=== PATIENT | female | born 1995 | race Caucasian/White ===

== ENCOUNTER 2018-06-10 08:38 | Inpatient (IN) | payer OTHER, SELFPAY ==
[2018-06-10 08:39] VITALS: BP 157/104; PULSE 114; RESP 24; TEMP 37; O2SAT 100; BMI 27.4
--- NOTE | 2018-06-10 08:58 | CT_ITS ---
STUDY: CT ABDOMEN AND PELVIS WITHOUT CONTRAST REASON FOR EXAM: Female, 23 years old. Right flank pain. History of kidney stones. RADIATION DOSAGE (If Supplied By Facility): CTDIvol = ( 7.88 ) mGy, DLP = ( 387.92 ) mGycm TECHNIQUE: Transaxial images were obtained from the dome of the diaphragm to the symphysis pubis without oral contrast, and without intravenous contrast. Sagittal and coronal images were reconstructed. Individualized dose optimization techniques were used for this CT. COMPARISON: Comparison is made with prior study dated August 09, 2015. FINDINGS: The visualized lung bases are unremarkable. The visualized portions of the heart are within normal limits. Normal liver. There are surgical clips in the gallbladder fossa consistent with a prior cholecystectomy. Normal spleen. Normal pancreas. Normal bilateral adrenal glands. Mild degree of the left hydronephrosis and left hydroureter with periureteric stranding due to a 3.1 mm calculus at the right ureterovesical junction. There is a 3.1 mm nonobstructive calculus in the mid inferior pole of the left kidney. Normal visualized stomach. Normal small intestine. Normal colon. The appendix is visualized and appears normal. Normal abdominal aorta. Normal inferior vena cava. There is borderline retroperitoneal lymphadenopathy with enlarged nodes no greater than 10mm in the short axis diameter. Normal urinary bladder. Normal abdominal wall. Normal osseous structures. CT/Abdomen/Pelvis without Cont IMPRESSION: 3.1 mm calculus at the right ureterovesical junction causing a mild degree of right hydronephrosis and right hydroureter. Nonobstructive left intrarenal calculus. Electronically Signed: Horacio Vogel MD at 10:15 EDT Tel [phone], Service support ,
[2018-06-10 09:24] LABS: Absolute Lymphocyte Count 2.27 X10^3/ul (0.83-4.51); Absolute Neutrophil Count 7.1 X10^3/uL (2.0-7.7); Basophil# 0.02 X10^3/uL; Basophil% 0.2 % (0-1); Eosinophil# 0.11 X10^3/uL; Eosinophils% 1.1 % (0-5); Hematocrit 44.8 % (37-47); Hemoglobin 15.2 g/dl (12.0-15.0); Lymphocyte # 2.27 X10^3/ul (4.0); Lymphocyte % 22.2 % (19-41); Mean Corp Hgb Conc 33.9 g/gl (32-36); Mean Corpuscular Hgb 29.6 pg (27.0-32.0); Mean Corpuscular Volume 87.2 fL (81-99); Monocyte% 6.8 % (0-10); Neutrophil # 7.11 X10^3/uL (2.7-7.7); Neutrophil % 69.5 % (47-70); Platelet Count 244 K/mm3 (150-450); RBC Distribution Width CV 11.8 % (11.6-14.6); RBC Distribution Width SD 37.2 fl (35.1-43.9); Red Blood Count 5.14 M/mm3 (4.2-5.4); White Blood Count 10.2 K/mm3 (4.4-11.0)
[2018-06-10 09:25] LABS: POSITIVE COUNT NO; POSITIVE DIFFERENTIAL NO; POSITIVE MORPHOLOGY NO
[2018-06-10] MEDS: proMETHazine 25 MG/ML Syringe 6.25 MG IV ×2 (09:26→11:13)
[2018-06-10] MEDS: 0.9% Normal Saline 1,000 ML 125 ML IV (09:26)
[2018-06-10] MEDS: Ketorolac 30 MG/ML Syringe IV (09:27)
[2018-06-10] MEDS: HYDROmorphone 1 MG/ML Syringe IV ×2 (09:29→11:13)
[2018-06-10 09:30] LABS: Anion Gap 11 (5-15); BUN 10 mg/dL (7-18); BUN/Creat Ratio 9.8 RATIO (10-20); Calcium,Total 9.4 mg/dL (8.5-10.1); Chloride 104 mmol/L (98-107); Creatinine, Serum 1.02 mg/dL (0.55-1.02); EST Glomerular Filtration Rate 72 mL/min (>60); Est Glom Filt Rate - Afr Amer 87 mL/min (>60); Estimated Creatinine Clearance 68.42 ml/min; Glucose 112 mg/dL (74-106); Potassium 3.6 mmol/L (3.5-5.1); Sodium Level 139 mmol/L (136-145)
[2018-06-10 09:40] LABS: Pregnancy, Serum, hCG Quali. NEGATIVE Negative (0-9 Nonpreg)
--- NOTE | 2018-06-10 10:09 | ED.VISSUMM ---
- ER Visit Summary Date of Service: 06/10/18 Chief Complaint: [Right flank pain] History of Present Illness: The patient is a 23 F presents the emergency department with right-sided flank pain that started yesterday. Patient was seen yesterday by nurse practitioner and had a urinalysis that was unremarkable and there was no blood in the urine. Patient states the pain is got more severe today and rates her pain currently is a 9 out of 10. Patient states that she believes it is a kidney stone as she has passed kidney stones in the past. Patient's had nausea but no vomiting. She denies any fever. She denies any dysuria currently although she had some yesterday. She does describe some frequency. She denies any hematuria.] Physical Examination: [HEENT-PERRLA, EOMI. Cranial nerves II through XII grossly intact. TMs clear. Mucous membranes moist. No adenopathy. Cardiovascular-regular rate and rhythm without murmur or ectopy Lungs-clear to auscultation, chest wall stable without crepitus or subcu emphysema Abdomen-normoactive bowel sounds, soft. Patient has tenderness palpation over the right lower quadrant and right flank. There is no rebound, rigidity, or perineal signs. Extremities-intact ?4, normal range of motion, normal pulses, atraumatic] Test Results: [CBC with differential obtained showed a white count of 10.2, hemoglobin 15, hematocrit 45, platelets 244. Chemistries unremarkable. HCG was negative.] CT scan of the abdomen and pelvis without contrast obtained showed a 3.1 mm stone at the right UVJ with right hydronephrosis and hydroureter. Emergency Department Course and Treatment: [Patient was medicated initially with Dilaudid, Zofran, and Toradol. Patient had good pain relief initially. During her stay in the emergency department her pain returned and had to be remedicated with Dilaudid and Zofran.] Treatment Plan: [Patient will be admitted for pain control. Patient states with her last kidney stone initially was sent home and she did not do well at home had to be admitted for pain control.] Disposition: [Admit] Impression: [Right urolithiasis with hydronephrosis and hydroureter. Intractable pain secondary to kidney stone.] This note was generated with [employer] software. It may contain incorrect words, spelling, and punctuation that were not noted in review of the chart prior to signing ED Disposition - Plan for ED Patient: Chief Complaint: Flank Pain Referrals: Kaden Meyer [Primary Care Provider] -
[2018-06-10 10:48] LABS: Mucous, Urine 0 SEEN /hpf (<or=2+)
[2018-06-10 10:52] LABS: Glucose, Dipstick Normal (Normal); Ketone-Dipstick 5 mg/dl (Negative); Leukocyte Esterase-Dipstick 25 /ul (Negative); Nitrite-Dipstick Positive (Negative); Occult Blood-Urine 10 /ul (Negative); Protein-Dipstick 30 mg/dl (Negative); Specific Gravity, Urine 1.015 (1.002-1.030); Urine Clarity Sl. Cloudy (Clear); Urine Urobilinogen 12 mg/dl (Normal)
[2018-06-10 10:53] LABS: Color, Urine SEE COMMENT BELOW (Yellow); Urine Bilirubin Dipstick 6 mg/dL (Negative)
[2018-06-10 11:03] LABS: Bacteria 1+ /hpf (None Seen); Red Blood Cells-Urine 0-5 SEEN /hpf (0-5); Squamous Epithelial Cells - UA 5-10 SEEN /hpf (5-10); White Blood Cells 0-5 SEEN /hpf (0-5)
--- NOTE | 2018-06-10 11:21 | NURSING ---
DR VEGA FOR DR BUTTERFIELD
--- NOTE | 2018-06-10 11:24 | PCM.HP.STD ---
Problem List (1) Kidney stone Status: Acute (2) Complicated UTI (urinary tract infection) Status: Acute History of Present Illness Date of Admission: 06/10/18 Chief Complaint: Right-sided flank pain - 1 day. Feeling of unwell ongoing for 1 week The patient is a 23 year old F with past medical history of kidney stones, reportedly having had more than 3 kidney stones with the first one 5 years ago in which she passed spontaneously. Patient had followed up and was diagnosed with hypercalcemia but is not on any medication; follows up with an fly fishing guide. Reports feeling unwell for the past 1 week with dysuria, frequency, urgency and feeling of incomplete emptying. Denied any fever but had some chills. Was seen by her primary care doctor and workup was negative for acute UTI. Patient was at work today when she suddenly had right-sided flank pain, severe, radiates alone to her lower back, relieved with pain medications. Vitals in the ED show a temperature of 98.6F, heart rate 114, blood pressure 157/104, respiratory to 24, SPO2 100% on room air Admitting blood work showed WBC count of 10.2, hemoglobin 15.2, platelets 244, dome of 139, potassium 3.6, chloride 104, bicarbonate 24, BUN 10, creatinine 1.02, and test is negative, PTH intact is 41.4. Her UA slightly cloudy, occult blood was 10, nitrite positive, leukocyte esterase 25, WBC was 0-5. CT scan of the abdomen and pelvis showed a 3.1 mm calculus at the right ureterovesicular junction causing mild degree of right hydronephrosis and right hydroureter, nonobstructive left intrarenal calculus. 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 Denies: Fever, Weight Change, Fatigue Eyes: Denies: Blurred vision, Cataracts, Conjunctivae Inflammation, Pain, Redness HEENT: Denies: Difficulty Hearing, Difficulty Swallowing, Head Aches, Hearing Changes, Sinus Congestion, Sinus Drainage Cardiovascular: Denies: Chest Pain, Claudication, Chest Pressure, Orthopnea, Palpitations, Paroxysmal Noc. Dyspnea Respiratory: Denies: Cough, Hemoptysis, Shortness of breath at rest, Shortness of breath upon exertion, Sputum production Gastrointestinal: Denies: Abdominal Pain, Constipation, Diarrhea, Nausea, Vomiting Genitourinary: Reports: Dysuria, Frequency, Urgency Gynecological: Denies: Breast symptoms, Excessively long or heavy periods, Vaginal discharge, Vaginal itching Musculoskeletal: Denies: Joint Pain, Joint stiffness, Joint swelling, Joint Tenderness Skin: Denies: Pruritis, Rash, Wounds Neurological: Denies: Numbness, Tingling, Focal weakness Psychiatric: Denies: Anxiety, Depression, Homicidal Ideations, Suicidal Ideations Hematologic/ Lymphatic: Denies: Easy Bruising, Easy Bleeding VTE Information - Inpt Only VTE Present on Admission: No VTE Pharm Prophylaxis ordered?: Yes Patient Problems: Active and Suspected Problems Kidney stone (Acute) Complicated UTI (urinary tract infection) (Acute) - Physical Exam General: Alert, Oriented x3, Cooperative, No apparent distress HEENT: Atraumatic, PERRLA, EOMI, Normocephalic Oral: Moist Mucosa Neck: Supple Lungs: Clear to auscultation, Normal air movement Cardiovascular: Regular rate, Regular Rhythm, Normal S1, Normal S2, No murmurs Abdomen: Bowel Sounds Present, Soft, Non Tender, Non-Distended, No Hepato-splenomegaly Extremities: No edema Skin: No rashes, No breakdown Musculoskeletal: No Tenderness to Palpation of Joints or Extremities Lymphatic: No Cervical, Supraclavicular, or Inguinal Adenopathy Neurological: Cranial nerves II-XII grossly intact Psych/Mental Status: Normal Affect, Appropriate Vital Signs Temp Pulse Resp BP Pulse Ox 98.6 F 114 H 24 H 157/104 H 100 06/10/18 08:39 06/10/18 08:39 06/10/18 08:39 06/10/18 08:39 06/10/18 08:39 Weight: 68.039 kg Body Mass Index (BMI) 27.4 Laboratory Tests Past 24 Hrs 06/10/18 06/10/18 06/10/18 09:00 09:00 09:00 WBC 10.2 RBC 5.14 Hgb 15.2 H Hct 44.8 MCV 87.2 MCH 29.6 MCHC 33.9 RDW 11.8 RDW Differential 37.2 Plt Count 244 MPV 11.0 Immature Gran % (Auto) 0.200 Neut % (Auto) 69.5 Lymph % (Auto) 22.2 [place] % (Auto) 6.8 Eos % (Auto) 1.1 Baso % (Auto) 0.2 Absolute Neuts (auto) 7.1 Absolute Lymphs (auto) 2.27 Total Counted Not Reportable Sodium 139 Potassium 3.6 Chloride 104 Carbon Dioxide 24.0 Anion Gap 11 BUN 10 Creatinine 1.02 Estim Creat Clear Calc 68.42 Est GFR (MDRD) Af Amer 87 Est GFR (MDRD) Non-Af 72 BUN/Creatinine Ratio 9.8 L Glucose 112 H Calcium 9.4 Serum , Qual NEGATIVE Urine Color Urine Clarity Urine pH Ur Specific [place] Urine Protein Urine Glucose (UA) Urine Ketones Urine Occult Blood Urine Nitrite Urine Bilirubin Urine Urobilinogen Ur Leukocyte Esterase Urine RBC Urine WBC Ur Squamous Epith Cells Urine Bacteria Urine Mucus 06/10/18 10:40 WBC RBC Hgb Hct MCV MCH MCHC RDW RDW Differential Plt Count MPV Immature Gran % (Auto) Neut % (Auto) Lymph % (Auto) [place] % (Auto) Eos % (Auto) Baso % (Auto) Absolute Neuts (auto) Absolute Lymphs (auto) Total Counted Sodium Potassium Chloride Carbon Dioxide Anion Gap BUN Creatinine Estim Creat Clear Calc Est GFR (MDRD) Af Amer Est GFR (MDRD) Non-Af BUN/Creatinine Ratio Glucose Calcium Serum , Qual Urine Color SEE COMMENT BELOW Urine Clarity Sl. Cloudy Urine pH 7.0 Ur Specific [place] 1.015 Urine Protein 30 H Urine Glucose (UA) Normal Urine Ketones 5 H Urine Occult Blood 10 H Urine Nitrite Positive H Urine Bilirubin 6 H Urine Urobilinogen 12 H Ur Leukocyte Esterase 25 H Urine RBC 0-5 SEEN Urine WBC 0-5 SEEN Ur Squamous Epith Cells 5-10 SEEN Urine Bacteria 1+ Urine Mucus 0 SEEN Assessment/Plan All Active Problems Kidney stone (Acute) Complicated UTI (urinary tract infection) (Acute) 23 year old F with past medical history of kidney stones comes seen with complaints of dysuria, frequency and urgency as well as left flank pain and found to have a right ureterovesicular junction stone. 1. Right ureterovesicular junction calculus, 3.1 mm in diameter, history of kidney stones, reported history of hypercalcemia Plan:, Admit to MedSurg, IV fluids, pain control, monitoring patient's vitals, strict I & Os, if this persists to be a problem, will consult urology. 2. Acute complicated UTI; UA not suggestive of UTI but would treat in the light of symptoms and acute stone, and has allergy to ceftriaxone, will treat with IV Levaquin, aiming for 7 days total. 3. Reported history of hypercalcemia, not on medication, will request records from fly fishing guide. 4. DVT prophylaxis with early ambulation Code Visit Inpatient E&M: 68624 Init Hosp L2
--- NOTE | 2018-06-10 11:24 | NURSING ---
MED SURG KIDNEY STONE PAINTSIL
[2018-06-10 11:56] VITALS: BMI 28.7
[2018-06-10 12:03] VITALS: BP 132/86; PULSE 67; RESP 16; TEMP 36.8; O2SAT 98
[2018-06-10] MEDS: levoFLOXacin IV 750 MG/150 ML BAG 100 MG IV (13:00)
[2018-06-10 13:22] LABS: PTHIN 41.4 pg/mL (18.4-80.1)
--- NOTE | 2018-06-10 14:29 | PCA ---
Sent the request to doctor Enrique office for medical records per request from tayla julio after she seen patient
[2018-06-10] MEDS: Morphine 2 MG/ML Syringe 1 MG IV ×3 (14:33→23:32)
[2018-06-10 14:36] VITALS: BP 128/73; PULSE 77; RESP 16; TEMP 36.6; O2SAT 96
[2018-06-10] MEDS: oxyCODONE 5 MG Tablet PO (19:41)
[2018-06-10 20:38] VITALS: BP 120/70; PULSE 70; RESP 16; TEMP 36.7; O2SAT 97
[2018-06-10] MEDS: Senna/Docusate Sodium 1 Tablet 2 TABLET PO (20:59)
[2018-06-10] MEDS: 0.9% Normal Saline 1,000 ML 100 ML IV (22:11)
[2018-06-11 05:00] VITALS: BP 103/70; PULSE 73; RESP 18; TEMP 36.7; O2SAT 98
[2018-06-11] MEDS: Morphine 2 MG/ML Syringe 1 MG IV ×4 (06:10→20:24)
[2018-06-11 06:26] LABS: Absolute Lymphocyte Count 3.04 X10^3/ul (0.83-4.51); Absolute Neutrophil Count 4.4 X10^3/uL (2.0-7.7); Basophil# 0.02 X10^3/uL; Basophil% 0.2 % (0-1); Eosinophil# 0.17 X10^3/uL; Hematocrit 40.1 % (37-47); Hemoglobin 13.2 g/dl (12.0-15.0); Lymphocyte # 3.04 X10^3/ul (4.0); Lymphocyte % 36.3 % (19-41); Mean Corp Hgb Conc 32.9 g/gl (32-36); Mean Corpuscular Hgb 29.5 pg (27.0-32.0); Mean Corpuscular Volume 89.7 fL (81-99); Mean Platelet Vol. 11.1 fl (6.2-12.0); Monocyte# 0.71 X10^3/uL; Monocyte% 8.5 % (0-10); Neutrophil # 4.43 X10^3/uL (2.7-7.7); Neutrophil % 52.9 % (47-70); Platelet Count 221 K/mm3 (150-450); RBC Distribution Width CV 11.7 % (11.6-14.6); RBC Distribution Width SD 37.5 fl (35.1-43.9); Red Blood Count 4.47 M/mm3 (4.2-5.4); White Blood Count 8.4 K/mm3 (4.4-11.0)
[2018-06-11 06:30] LABS: POSITIVE COUNT NO; POSITIVE DIFFERENTIAL NO; POSITIVE MORPHOLOGY NO
[2018-06-11 06:49] LABS: Anion Gap 6 (5-15); BUN 9 mg/dL (7-18); BUN/Creat Ratio 9.6 RATIO (10-20); Calcium,Total 8.4 mg/dL (8.5-10.1); Chloride 107 mmol/L (98-107); Creatinine, Serum 0.94 mg/dL (0.55-1.02); EST Glomerular Filtration Rate 79 mL/min (>60); Est Glom Filt Rate - Afr Amer 96 mL/min (>60); Estimated Creatinine Clearance 74.25 ml/min; Glucose 94 mg/dL (74-106); Potassium 3.9 mmol/L (3.5-5.1); Sodium Level 141 mmol/L (136-145)
[2018-06-11] MEDS: 0.9% Normal Saline 1,000 ML 100 ML IV (07:29)
[2018-06-11 07:31] VITALS: BP 117/69; PULSE 65; RESP 16; TEMP 36.4; O2SAT 99
--- NOTE | 2018-06-11 07:47 | PCM.DC ---
- Discharge Diagnoses Current Active Problems: Current Active and Chronic Problems Kidney stone (Acute) Complicated UTI (urinary tract infection) (Acute) Reason(s) for Visit for Discharge Instructions: Left flank pain, kidney stone Allergies/Adverse Reactions: Allergies ceftriaxone sodium [From Rocephin] Allergy (Verified 06/10/18 08:41) Shortness of breath Medications to take at Discharge Norgestimate-Ethinyl Estradiol [Sprintec 28 Day Tablet] 1 each PO DAILY 06/06/14 Levofloxacin [Levaquin] 750 mg PO DAILY #6 tablet 06/11/18 The following prescriptions were given: Levofloxacin [Levaquin] 750 mg PO DAILY #6 tablet Primary Care Physician: Kaden Meyer [Primary Care Provider] - Test Results: Test results from this visit will be discussed in further detail at your follow-up appointment, if applicable.
--- NOTE | 2018-06-11 09:01 | PCM.DC.SUM ---
Discharge Date and Diagnosis - Problem List Patient Problems: Active and Suspected Problems Kidney stone (Acute) Complicated UTI (urinary tract infection) (Acute) Date of Admission: 06/10/18 Date of Discharge: 06/11/18 - Primary Discharge Diagnosis Active and Suspected Problems Kidney stone (Acute) Complicated UTI (urinary tract infection) (Acute) Hospital Course and Treatment Summary of Care Provided: The patient is a 23 year old F [] Home Medications: Medications to take at Discharge Norgestimate-Ethinyl Estradiol [Sprintec 28 Day Tablet] 1 each PO DAILY 06/06/14 Levofloxacin [Levaquin] 750 mg PO DAILY #6 tablet 06/11/18 Following Prescrptions Were Given to Patient: Levofloxacin [Levaquin] 750 mg PO DAILY #6 tablet Primary Care Physician: Kaden Meyer [Primary Care Provider] - Medical Necessity - Tobacco Use Smoking Status: Never smoker Tobacco Use: Non-smoker
[2018-06-11] MEDS: levoFLOXacin IV 750 MG/150 ML BAG 100 MG IV (09:20)
[2018-06-11] MEDS: Senna/Docusate Sodium 1 Tablet 2 TABLET PO ×2 (09:20→21:49)
[2018-06-11] MEDS: oxyCODONE 5 MG Tablet PO ×2 (09:20→21:50)
[2018-06-11 11:16] VITALS: BP 116/70; PULSE 74; RESP 16; TEMP 36.6; O2SAT 96
[2018-06-11] MEDS: proMETHazine 25 MG/ML Syringe 6.25 MG IV (12:50)
--- NOTE | 2018-06-11 14:09 | PCM.PN.HOSP ---
Patient Problems: Active and Suspected Problems Kidney stone (Acute) Complicated UTI (urinary tract infection) (Acute) Subjective: Patient was seen and examined. Still has right flank pain. Denies fever or chills or SOB. Vitals/I&O's: Vital Signs Temp Pulse Resp BP Pulse Ox 98 F 74 16 116/70 96 06/11/18 11:16 06/11/18 11:16 06/11/18 11:16 06/11/18 11:16 06/11/18 11:16 Oxygen Delivery Method Room Air Weight: 71.214 kg Body Mass Index (BMI) 28.7 Intake and Output for Last 24 Hours 06/09/18 06/10/18 06/11/18 23:59 23:59 23:59 Intake Total 2102 / 2102 1736 / 1736 Output Total 1400 / 1400 1300 / 1300 Balance 702 / 702 436 / 436 Laboratory Results 06/11/18 06:05: WBC 8.4, RBC 4.47, Hgb 13.2, Hct 40.1, MCV 89.7, MCH 29.5, MCHC 32.9, RDW 11.7, RDW Differential 37.5, Plt Count 221, MPV 11.1, Immature Gran % (Auto) 0.100, Neut % (Auto) 52.9, Lymph % (Auto) 36.3, [place] % (Auto) 8.5, Eos % (Auto) 2.0, Baso % (Auto) 0.2, Absolute Neuts (auto) 4.4, Absolute Lymphs (auto) 3.04, Total Counted Not Reportable 06/11/18 06:05: Sodium 141, Potassium 3.9, Chloride 107, Carbon Dioxide 28.0, Anion Gap 6, BUN 9, Creatinine 0.94, Estim Creat Clear Calc 74.25, Est GFR (MDRD) Af Amer 96, Est GFR (MDRD) Non-Af 79, BUN/Creatinine Ratio 9.6 L, Glucose 94, Calcium 8.4 L Current Medications Acetaminophen (Tylenol) 650 mg PO Q6H PRN PRN PRN Reason: Mild Pain (1-3)/Temp > 100.7 F Bisacodyl (Dulcolax) 5 mg PO DAILY PRN PRN PRN Reason: Constipation Levofloxacin (Levaquin Iv) 750 mg in 150 mls @ 100 mls/hr IV Q24 [facility] Last Admin: 06/11/18 09:20 Dose: 100 mls/hr Sodium Chloride () 1,000 mls @ 100 mls/hr IV .Q10H [facility] Last Admin: 06/11/18 07:29 Dose: 100 mls/hr Magnesium Hydroxide (Milk Of Magnesia) 30 ml PO DAILY PRN PRN PRN Reason: Constipation Morphine Sulfate () 1 mg IV Q4H PRN PRN PRN Reason: MOD-SEVERE PAIN (4-1010) Last Admin: 06/11/18 11:12 Dose: 1 mg Oxycodone HCl (Oxyir) 5 mg PO Q4H PRN PRN PRN Reason: MOD-SEVERE PAIN (4-10/10) Last Admin: 06/11/18 09:20 Dose: 5 mg Promethazine HCl (Phenergan) 6.25 mg IV Q6H PRN PRN PRN Reason: NAUSEA/VOMITING Last Admin: 06/11/18 12:50 Dose: 6.25 mg Psyllium Hydrophilic Mucilloid (Metamucil) 1 packet PO DAILY PRN PRN PRN Reason: CONSTIPATION Senna/Docusate Sodium (Senokot-S, Zhanna-Colace) 2 tablet PO BID [facility] Last Admin: 06/11/18 09:20 Dose: 2 tablet Sodium Chloride () 5 - 30 ml IV UD PRN PRN Reason: SALINE FLUSH Medical Necessity - Tobacco Use Smoking Status: Never smoker Tobacco Use: Non-smoker Assessment/Plan All Active Problems Kidney stone (Acute) Complicated UTI (urinary tract infection) (Acute) 23 year old F with past medical history of kidney stones comes seen with complaints of dysuria, frequency and urgency as well as left flank pain and found to have a right ureterovesicular junction stone. 1. Right ureterovesicular junction calculus, 3.1 mm in diameter, history of kidney stones, remains on IVF, not passed stone, will continue with supportive management. 2. Acute complicated UTI, on IV Levaquin, day 2, no fever or leucocytosis. 3. Reported history of hypercalcemia, not on medication, request records from [employer] [employer] pending 4. DVT prophylaxis with early ambulation Code Visit Inpatient E&M: 91131 Subs Hosp L2
[2018-06-11 14:20] VITALS: BP 130/83; PULSE 72; RESP 18; TEMP 36.6; O2SAT 98
--- NOTE | 2018-06-11 17:36 | PCM.CONS.U ---
Reason for Consult Date of Consultation: 06/11/18 Reason for Consultation: Right ureteral calculi History of Present Illness: The patient is a 23 year old female with a 3mm right ureteral calculi has not been able to pass stone, still in pain Past Medical History Allergies ceftriaxone sodium [From Rocephin] Allergy (Verified 06/10/18 08:41) Shortness of breath Home Medications: Ambulatory Orders Medication Instructions Recorded Norgestimate-Ethinyl Estradiol 1 each PO DAILY 06/06/14 [Sprintec 28 Day Tablet] Levofloxacin [Levaquin] 750 mg PO DAILY #6 tablet 06/11/18 Surgical History: cholecystectomy, tonsillectomy Psychiatric History: No pertinent psych hx 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 EDUCATION 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 history Lives: With Family Smoking Status: Never smoker Tobacco Use: Non-smoker Alcohol: None Drugs: None - *Family History Maternal History Items: Cancer - Thyroid Paternal History Items: Heart Disease Sibling History Items: No pertinent history Review of Systems Constitutional: Denies: Chills, Fever, Weight Change HEENT: Denies: Head Aches, Sinus Congestion, Sinus Drainage Cardiovascular: Denies: Chest Pain, Palpitations Respiratory: Denies: Cough, Shortness of breath at rest, Sputum production Gastrointestinal: Denies: Abdominal Pain, Nausea, Vomiting Genitourinary: Denies: Dysuria Musculoskeletal: Denies: Joint Pain, Joint Tenderness Skin: Denies: Rash, Wounds Neurological: Denies: Numbness, Tingling, Focal weakness Psychiatric: Denies: Anxiety, Depression, Homicidal Ideations, Suicidal Ideations Hematologic/ Lymphatic: Denies: Easy Bruising, Easy Bleeding Physical Exam - Physical Exam Vital Signs Temp 98 F 06/11/18 14:20 Pulse 72 06/11/18 14:20 Resp 18 06/11/18 14:20 BP 130/83 H 06/11/18 14:20 Pulse Ox 98 06/11/18 14:20 Intake & Output 06/09/18 06/10/18 06/11/18 23:59 23:59 23:59 Intake Total 2102 / 2102 1736 / 1736 Output Total 1400 / 1400 1300 / 1300 Balance 702 / 702 436 / 436 Weight: 71.214 kg Intake: Oral 840 / 840 570 / 570 IV fluid/meds 1262 / 1262 1166 / 1166 Output: Urine 1400 / 1400 1300 / 1300 General: Alert, Oriented x3 HEENT: Atraumatic Oral: Moist Mucosa Neck: Supple Lungs: Normal air movement Cardiovascular: Regular rate Abdomen: Bowel Sounds Present, Soft, Obese Laboratory Tests Past 24 Hrs 06/11/18 06/11/18 06:05 06:05 WBC 8.4 RBC 4.47 Hgb 13.2 Hct 40.1 MCV 89.7 MCH 29.5 MCHC 32.9 RDW 11.7 RDW Differential 37.5 Plt Count 221 MPV 11.1 Immature Gran % (Auto) 0.100 Neut % (Auto) 52.9 Lymph % (Auto) 36.3 [place] % (Auto) 8.5 Eos % (Auto) 2.0 Baso % (Auto) 0.2 Absolute Neuts (auto) 4.4 Absolute Lymphs (auto) 3.04 Total Counted Not Reportable Sodium 141 Potassium 3.9 Chloride 107 Carbon Dioxide 28.0 Anion Gap 6 BUN 9 Creatinine 0.94 Estim Creat Clear Calc 74.25 Est GFR (MDRD) Af Amer 96 Est GFR (MDRD) Non-Af 79 BUN/Creatinine Ratio 9.6 L Glucose 94 Calcium 8.4 L Assessment/Plan All Active Problems Kidney stone (Acute) Complicated UTI (urinary tract infection) (Acute) 23 yo female with 3mm right ureteral calculi failed conservative management npo consent. plan for ureteroscopy basket of stone tomorrow in am.
[2018-06-11 20:20] VITALS: BP 122/88; PULSE 76; RESP 16; TEMP 37.1; O2SAT 95
[2018-06-11] MEDS: 0.9% NaCl Peripheral Flush Adult/Peds IV (20:25)
[2018-06-11] MEDS: 0.9% Normal Saline 1,000 ML 75 ML IV (21:53)
[2018-06-11 22:00] VITALS: BMI 28.8
[2018-06-12] VITALS (11 sets, daily range): BP systolic 104–135; BP diastolic 71–86; PULSE 61–72; RESP 16; TEMP 36.6–37; O2SAT 94–100; BMI 28.8
[2018-06-12] MEDS: oxyCODONE 5 MG Tablet PO ×4 (02:02→20:10)
--- NOTE | 2018-06-12 05:45 | NURSING ---
Down to AC via bed with Joceline, AUTOMATIC MAINTAINER. Mom of patient following also.
--- NOTE | 2018-06-12 06:54 | CALC_PTH ---
PATIENT: ERWIN BALDWIN LOC: MS3 U#:[id number] AGE/SX: 23/ ROOM: [facility] RE06/10/[address]: Dr. Dixie Evans MD : [id number] BED: 1 DIS: 06/13/2018 SPEC #: [id number] RECD: 06/12/18 08:00 STATUS: ANAID DAVIS #: [id number] DONTAE: 06/12/18 06:[address]: Jasper Berumen DEPT: SURGICAL PATHOLOGY RECD BY: Jon Cota ENTERED: 06/15/18 08:01 SP TYPE: Calculi OTHR DR: MD Dr. Jasper Coello MD Jordan Garrison Tissues: CALCULI Procedures: Surgery Specimen Level I Comments: @ Ordering doctor for RAHEEM edited from to @ by RGOOD at 06/15/18 08 @ Submitting doctor edited from to @ by RGOOD at 06/15/18 0802 HEADER OPERATION: Cysto, ureteroscopy, basket extraction, dilation of ureter, stent PRE-OP DIAGNOSIS: Right ureteral calculi TISSUE SUBMITTED: Right ureteral calculi GROSS DIAGNOSIS Right renal calculus, removal: Unremarkable calculus (gross diagnosis only). AM:rossy 06/15/18 COMMENT The calculus is submitted in its entirety for chemical stone analysis. The results from this study will be reported separately. GROSS DESCRIPTION Received is one container labeled with the patient's name and designated right ureteral calculi. The specimen consists of a fragment of hanks-brown stone measuring 0.2 x 0.2 x 0.2 cm. The entire specimen is submitted for stone analysis. / SJ:rossy 06/12/18 CPT: 48131
--- NOTE | 2018-06-12 07:04 | OP.PCM_ITS ---
Report of Operation Date of Procedure: 06/12/18 Pre-Operative Diagnosis: Right distal ureteral calculi with hydronephrosis and obstruction high-grade. Post-Operative Diagnosis: Same Surgery/Procedure Performed:: Cystoscopy, balloon dilation of the right ureter, right ureteroscopy basket extraction of stone and right stent placement Description of Surgical Findings:: 23-year-old female who presented to the hospital with severe pain in the right side from the small stone in distal ureter she failed conservative management was called to see the patient and recommended we proceed with extraction of the stone. 23-year-old female taken back to the operating room after smooth induction of general anesthesia she was placed in dorsal lithotomy position went into the bladder with a 21 [place] rigid cystourethroscope inside the bladder identified the right ureteral orifice was fairly inflamed but had a patulous open went in with the ureteroscope and found that the ureter was fairly narrow and inflamed I then try to advance the Glidewire into the ureter however is quite difficult to get into the ureter I then backed went back in with the ureteroscope could see the opening in the ureter and advanced the wire through it and then left the wire in place then backloaded the ureteroscope of the wire of the wire in place and then over the wire backloaded the cystoscope and then used a balloon dilator 12 [place] 10 cm balloon dilator and then perform balloon dilation of the distal ureter. After balloon dilating the ureter I then left the wire in place and then next the wire I went in with the offset ureteroscope was able to get into the ureter quite easily identified the stone and then used a basket nitinol tipless basket to grab the stone and then gently extract the stone from the ureter stone was then handed off as a specimen. The ureter was fairly inflamed and had to be balloon dilated and therefore I thought to be best to leave a stent to ensure that there is no spasms in the ureter heals properly over the wire we put a stent in stent went up to the kidney pulled the wire the stent coiled in the kidney and bladder drain the bladder left the string on the stent for extraction. Drain the bladder patient anesthetic was reversed taken back to the PACU in good condition she can follow-up next week to get stent out. Type of Anesthesia:: General Drains: stent - Admit VTE Documentation VTE Present on Admission: No VTE Mechan Device Prophylaxis: SCD's
--- NOTE | 2018-06-12 07:35 | PCM.PN.HOSP ---
Patient Problems: Active and Suspected Problems Kidney stone (Acute) Complicated UTI (urinary tract infection) (Acute) Subjective: Patient was seen and examined. Had cystoscopy, balloon dilatation of right ureter, right ureteroscopy with basket extraction of stone and right stent placement this morning. Patient still complains of right flank pain. She admits to some nausea, no fever or chills. Vitals/I&O's: Vital Signs Temp Pulse Resp BP Pulse Ox 98.2 F 66 16 104/86 H 98 06/12/18 07:32 06/12/18 07:32 06/12/18 07:32 06/12/18 07:32 06/12/18 07:32 Oxygen Delivery Method Room Air Weight: 71.21 kg Body Mass Index (BMI) 28.8 Intake and Output for Last 24 Hours 06/10/18 06/11/18 06/12/18 23:59 23:59 23:59 Intake Total 2102 / 2102 2776 / 2776 1337 / 1337 Output Total 1400 / 1400 3400 / 3400 1775 / 1775 Balance 702 / 702 -624 / -624 -438 / -438 General: Alert, Oriented x3, Cooperative, No apparent distress HEENT: Atraumatic, PERRLA, EOMI, Normocephalic Oral: Moist Mucosa Neck: Supple, No JVD, Negative Carotid Bruits Lungs: Clear to auscultation, Normal air movement Cardiovascular: Regular rate, Regular Rhythm, Normal S1, Normal S2, No murmurs Abdomen: Bowel Sounds Present, Soft, Non Tender, Non-Distended, No Hepato-splenomegaly Extremities: No edema Skin: No rashes, No breakdown Musculoskeletal: No Tenderness to Palpation of Joints or Extremities Lymphatic: No Cervical, Supraclavicular, or Inguinal Adenopathy Neurological: Cranial nerves II-XII grossly intact Psych/Mental Status: Normal Affect, Appropriate Laboratory Results 06/12/18 07:15: Stone Size Pending, Stone Weight Pending, Stone Color Pending Current Medications Acetaminophen (Tylenol) 650 mg PO Q6H PRN PRN PRN Reason: Mild Pain (1-3)/Temp > 100.7 F Bisacodyl (Dulcolax) 5 mg PO DAILY PRN PRN PRN Reason: Constipation Levofloxacin (Levaquin Iv) 750 mg in 150 mls @ 100 mls/hr IV Q24 [facility] Last Admin: 06/11/18 09:20 Dose: 100 mls/hr Sodium Chloride () 1,000 mls @ 75 mls/hr IV .[id number] [facility] Last Admin: 06/11/18 21:53 Dose: 75 mls/hr Magnesium Hydroxide (Milk Of Magnesia) 30 ml PO DAILY PRN PRN PRN Reason: Constipation Morphine Sulfate () 1 mg IV Q4H PRN PRN PRN Reason: MOD-SEVERE PAIN (4-10/10) Last Admin: 06/11/18 20:24 Dose: 1 mg Oxycodone HCl (Oxyir) 5 mg PO Q4H PRN PRN PRN Reason: MOD-SEVERE PAIN (4-10/10) Last Admin: 06/12/18 02:02 Dose: 5 mg Promethazine HCl (Phenergan) 6.25 mg IV Q6H PRN PRN PRN Reason: NAUSEA/VOMITING Last Admin: 06/11/18 12:50 Dose: 6.25 mg Psyllium Hydrophilic Mucilloid (Metamucil) 1 packet PO DAILY PRN PRN PRN Reason: CONSTIPATION Senna/Docusate Sodium (Senokot-S, Zhanna-Colace) 2 tablet PO BID [facility] Last Admin: 06/11/18 21:49 Dose: 2 tablet Sodium Chloride () 5 - 30 ml IV UD PRN PRN Reason: SALINE FLUSH Last Admin: 06/11/18 20:25 Dose: 10 ml Medical Necessity - Tobacco Use Smoking Status: Never smoker Tobacco Use: Non-smoker Assessment/Plan All Active Problems Kidney stone (Acute) Complicated UTI (urinary tract infection) (Acute) 23 year old F with past medical history of kidney stones comes seen with complaints of dysuria, frequency and urgency as well as left flank pain and found to have a right uretero-vesicular junction stone. 1. Postop day #0 status post cystoscopy, balloon dilatation of right ureter, right ureteroscopy with basket extraction of stone and right stent placement for right uretero-vesicular junction calculus, 3.1 mm in diameter, history of kidney stones, Continue with pain medicines, IV fluids, follow-up with urology on discharge for stent removal next week. 2. Acute complicated UTI, on IV Levaquin, day 3, will aim for 10 days total of antibiotics 3. Reported history of hypercalcemia, not on medication, request records from store operations manager pending 4. DVT prophylaxis with early ambulation Code Visit Inpatient E&M: 89990 Subs Hosp L2
[2018-06-12] MEDS: 0.9% NaCl Peripheral Flush Adult/Peds IV ×2 (08:27→20:12)
[2018-06-12] MEDS: Morphine 2 MG/ML Syringe 1 MG IV (08:27)
[2018-06-12] MEDS: 0.9% Normal Saline 1,000 ML 75 ML IV ×2 (10:07→23:34)
[2018-06-12] MEDS: levoFLOXacin IV 750 MG/150 ML BAG 100 MG IV (10:08)
[2018-06-12] MEDS: Senna/Docusate Sodium 1 Tablet 2 TABLET PO ×2 (10:08→20:12)
--- NOTE | 2018-06-12 14:05 | PCA ---
Request placed by Dr. Evans that this special education secretary call to check on the status of release of medical records from pt criminalist. Call placed to Dr. Núñez's office with [facility] regarding pt medical records request. Dr. Núñez's office is now closed and will be open on June 15. This special education secretary placed call to [facility] medical records to see if they could complete the release. Spoke with Elliot who informed this special education secretary she can only access records from the hospital. Informed Dr. Evans of the above.
[2018-06-13] MEDS: oxyCODONE 5 MG Tablet PO ×2 (03:25→11:41)
[2018-06-13 03:39] VITALS: BP 121/72; PULSE 80; RESP 16; TEMP 36.8; O2SAT 95
--- NOTE | 2018-06-13 09:18 | PCM.DC ---
- Discharge Diagnoses Current Active Problems: Current Active and Chronic Problems Kidney stone (Acute) Complicated UTI (urinary tract infection) (Acute) Reason(s) for Visit for Discharge Instructions: Right flank pain You will use the following diet at home:: Regular Your food should be the consistency of: Regular Your liquids should be the consistency of: Regular/Thin Discharge Activity: Return to Normal Activity Additional Instructions: Ok to take tylenol or Advil alternating with oxycodone for pain. Continue to keep yourself hydrated. Continue to ambulate. Allergies/Adverse Reactions: Allergies ceftriaxone sodium [From Rocephin] Allergy (Verified 06/10/18 08:41) Shortness of breath Medications to take at Discharge Norgestimate-Ethinyl Estradiol [Sprintec 28 Day Tablet] 1 each PO DAILY 06/06/14 Oxycodone [Oxyir] 5 mg PO Q4H PRN PRN 5 Days #20 tab 06/13/18 Senna/Docusate Sodium [Senokot-S] 2 tab PO BID #20 tab 06/13/18 levoFLOXacin tablet [Levaquin tablet] 750 mg PO DAILY #7 tab 06/13/18 The following prescriptions were given: Oxycodone [Oxyir] 5 mg PO Q4H PRN PRN 5 Days #20 tab PRN Reason: Mod-Severe Pain (4-1010) levoFLOXacin tablet [Levaquin tablet] 750 mg PO DAILY #7 tab Senna/Docusate Sodium [Senokot-S] 2 tab PO BID #20 tab Primary Care Physician: Kaden Meyer [Primary Care Provider] - Please follow up with your Primary Care Physician in: in 1 week Test Results: Test results from this visit will be discussed in further detail at your follow-up appointment, if applicable. Please Follow Up With: Jasper Berumen MD When: in 1 week for stent removal Proposed Discharge Date: 06/13/18
--- NOTE | 2018-06-13 09:20 | DS.PCM_ITS ---
Discharge Date and Diagnosis - Problem List Patient Problems: Active and Suspected Problems Kidney stone (Acute) Complicated UTI (urinary tract infection) (Acute) Date of Admission: 06/10/18 Date of Discharge: 06/13/18 - Primary Discharge Diagnosis Active and Suspected Problems Kidney stone (Acute) Complicated UTI (urinary tract infection) (Acute) - Secondary Discharge Diagnosis Kidney stones Hospital Course and Treatment Imaging Results: Clinical Impression(s) from Imaging Studies Abdomen/Pelvis CT 06/10/18 08:58 IMPRESSION: 3.1 mm calculus at the right ureterovesical junction causing a mild degree of right hydronephrosis and right hydroureter. Nonobstructive left intrarenal calculus. Electronically Signed: Horacio Vogel MD at 10:15 EDT Tel [phone], Service support , Urology Operations: None Procedures: - - cystoscopy, balloon dilatation of right ureter, right ureteroscopy with basket extraction of stone and right stent placement Summary of Care Provided: 23 year old F with past medical history of kidney stones was admitted with complains of dysuria, frequency and urgency as well as left flank pain and found to have a right uretero-vesicular junction stone. She was managed conservatively initially with no improvement. She was seen by urology after 24 hours of conservative management and subsequently underwent cystoscopy, balloon dilatation of right ureter, right ureteroscopy with basket extraction of stone and right stent placement. She was managed on IV levaquin and continued on PO levaquin for 1 more week making 10 days total. She still complained of discomfort in her right flank on the day of discharge. She was discharged on oxycodone, tylenol prn. She will follow-up with her urologist and PCP. DR. Berumen plans on removing ureteral stent after 1 week. Of note is she has a reported history of hypercalcemia, not on medication, request records from associate account manager pending at the time of discharge. Discharge Diet: No Restrictions Discharge Activity: Return to Normal Activity Home Medications: Medications to take at Discharge Norgestimate-Ethinyl Estradiol [Sprintec 28 Day Tablet] 1 each PO DAILY Ondansetron [Zofran Odt] 4 mg PO Q6H PRN PRN #10 tab.rapdis 06/13/18 Oxycodone [Oxyir] 5 mg PO Q4H PRN PRN 5 Days #20 tab 06/13/18 Senna/Docusate Sodium [Senokot-S] 2 tab PO BID #20 tab 06/13/18 levoFLOXacin tablet [Levaquin tablet] 750 mg PO DAILY #7 tab 06/13/18 Following Prescrptions Were Given to Patient: Oxycodone [Oxyir] 5 mg PO Q4H PRN PRN 5 Days #20 tab PRN Reason: Mod-Severe Pain (-07/01) Ondansetron [Zofran Odt] 4 mg PO Q6H PRN PRN #10 tab.rapdis PRN Reason: Nausea/Vomiting levoFLOXacin tablet [Levaquin tablet] 750 mg PO DAILY #7 tab Senna/Docusate Sodium [Senokot-S] 2 tab PO BID #20 tab Primary Care Physician: Kaden Meyer [Primary Care Provider] - Please follow up with your Primary Care Physician in: in 1 week Please Follow Up With: Jasper Berumen MD When: in 1 week for stent removal Disposition: Home Minutes spent on discharge:: 45 Patient Condition:: Stable Medical Necessity - Tobacco Use Smoking Status: Never smoker Tobacco Use: Non-smoker Meaningful Use Info Meaningful Use Diagnoses (Choose all that apply): None applicable Code Visit Inpatient E&M: 43763 Disch Hosp
[2018-06-13 09:35] VITALS: BP 116/73; PULSE 86; RESP 18; TEMP 36.7; O2SAT 97
[2018-06-13] MEDS: Acetaminophen 500 MG Tablet 1000 MG PO (09:44)
[2018-06-13] MEDS: levoFLOXacin IV 750 MG/150 ML BAG 100 MG IV (09:46)
[2018-06-13] MEDS: Senna/Docusate Sodium 1 Tablet 2 TABLET PO (09:48)
[2018-06-13] MEDS: proMETHazine 25 MG/ML Syringe 6.25 MG IV (11:42)
[2018-06-15 11:10] LABS: Vitamin D 1,25-Dihydroxy 81.8 pg/mL (19.9-79.3)
[2018-06-22 12:07] LABS: Ca Oxalate, Dihydrate 25 % (.); Ca Oxalate, Monohydrate 60 % (.); Calcium Phosphate 15 % (.)
== END 2018-06-13 12:42 | disposition home or self-care (01) | DRG 670 ==
LOC: ED 09:10 → MS3 11:37
PROVIDERS: Urology; Admitting Provider Internal Medicine; Emergency Provider Emergency Medicine; Family Provider Student in an Organized Health Care Education/Training Program; PCP Student in an Organized Health Care Education/Training Program; Visit Provider Internal Medicine
PROC: 0TC68ZZ Extirpation of Matter from Right Ureter, Via Natural or Artificial Opening Endoscopic (ICD-10-PCS; CPT 52352; principal; 2018-06-12 06:30)
DX: N13.6 Pyonephrosis (principal); Z87.442 Personal history of urinary calculi; N20.0 Calculus of kidney
CPT/HCPCS: 36415; 74176; 80048; 81001; 82360; 82652; 83970; 84703; 85025; 87086; 87088; 88300; 99282; J7030; A4216; C1769; C2617; J2405

== ENCOUNTER 2020-06-19 11:54 | Emergency (ER) | payer OTHER, SELFPAY ==
[2020-06-19 11:55] VITALS: BP 149/78; PULSE 83; RESP 16; TEMP 36.6; O2SAT 99; BMI 28.5
[2020-06-19 14:00] LABS: Mucous, Urine 0 SEEN /hpf (<or=2+)
[2020-06-19 14:05] LABS: Color, Urine Yellow (Yellow); Glucose, Dipstick Normal (Normal); Ketone-Dipstick Negative (Negative); Leukocyte Esterase-Dipstick 25 /ul (Negative); Nitrite-Dipstick Negative (Negative); Occult Blood-Urine 10 /ul (Negative); Protein-Dipstick 15 mg/dl (Negative); Urine Bilirubin Dipstick Negative (Negative); Urine Clarity Sl. Cloudy (Clear); Urine Urobilinogen Normal (Normal); Urine pH 6.5 (5.0 - 8.0)
[2020-06-19 14:13] LABS: Bacteria 1+ /hpf (None Seen); Red Blood Cells-Urine 0-5 SEEN /hpf (0-5); Squamous Epithelial Cells - UA 0-5 SEEN /hpf (5-10); White Blood Cells 0-5 SEEN /hpf (0-5)
--- NOTE | 2020-06-19 14:15 | ED.VIS.GEN ---
History of Present Illness Chief Complaint: Complaint Informant: Patient Onset: Weeks - 2 Narrative: Presents with intermittent dysuria for the past 2 weeks at the end of urination. No fevers or back pain. No nausea or vomiting. History of kidney stones in the past however this does not feel similar. Denies any abnormal vaginal bleeding or discharge. Last menstrual period was a week ago. Prior similar symptoms: Yes Past Medical History - Allergies and Home Meds Allergies/Adverse Reactions: Allergies ceftriaxone sodium [From Rocephin] Allergy (Verified 06/19/20 11:55) Shortness of breath Primary Care Physician: Kaden Meyer [Primary Care Provider] - Past Medical History: - - Kidney stones Surgical History: cholecystectomy, tonsillectomy Smoking Status: Never smoker - Family History Maternal Family History: Reports: Cancer - Thyroid Paternal Family History: Reports: Heart Disease Sibling Family History: Reports: No pertinent history Review of Systems General: Denies: Chills, Fever, Sweats Eyes: Denies: Visual changes - bilaterally, Diplopia ENT: Denies: Rhinorrhea, Sore throat Cardiovascular: Denies: Chest pain, Palpitations Respiratory: Denies: Dyspnea, Cough, Dyspnea on exertion Gastrointestinal: Denies: Abdominal pain, Nausea, Vomiting, Diarrhea, Melena, Hematochezia Genitourinary: Reports: Dysuria. Denies: Hematuria, Frequency Musculoskeletal: Denies: Back pain, Extremity Pain Skin: Denies: Rash, Wounds Neurological: Denies: Headache, Weakness, Numbness Physical Exam Vital Signs/Narrative: Vital Signs Temp Pulse Resp BP Pulse Ox 06/19/20 11:55 98 F 83 16 149/78 H 99 General: Well nourished, Well developed, No Acute Distress Head: Normocephalic, Atraumatic Eyes: Perrl, EOMI ENT: Moist mucous membranes, No rhinorrhea Neck: Supple, Nontender Cardiovascular: Regular rate, Regular rhythm, No murmurs Respiratory: No distress, CTA bilaterally, Chest nontender Abdomen: Soft, Nondistended, Normal bowel sounds, - - Mild suprapubic tenderness, no guarding or rebound Back: Nontender, Normal Inspection Extremities: Nontender, No edema Skin: Normal color, No rash Neurological: Alert, Oriented x3, Cranial nerves II-XII grossly intact, Normal Strength, Normal Sensation Psychological: Normal affect, Normal Mood Diagnostic/Tx/Re-eval Abnormal Lab Results 06/19/20 06/19/20 14:00 14:00 Urine Color Yellow Urine Clarity Sl. Cloudy Urine pH 6.5 Ur Specific [place] 1.010 Urine Protein 15 H Urine Glucose (UA) Normal Urine Ketones Negative Urine Occult Blood 10 H Urine Nitrite Negative Urine Bilirubin Negative Urine Urobilinogen Normal Ur Leukocyte Esterase 25 H Urine RBC 0-5 SEEN Urine WBC 0-5 SEEN Ur Squamous Epith Cells 0-5 SEEN Urine Bacteria 1+ Urine Mucus 0 SEEN Urine Test Negative - Medical Decision Making Patient nontoxic, urine obtained from nursing triage did note leukocytes and bacteria. To clean sample. Culture sent. hCG was negative. She will be treated for cystitis with Macrobid and Pyridium. She is not presenting as a kidney stone that she has had this in the past and this feels different. She is nontoxic. Patient will monitor symptoms follow-up with PCP, signs and some discussed return. All questions were answered. ED Disposition - Plan for ED Patient: Disposition: Home or Assisted Living Diagnosis: Urinary tract infection Instructions: ED CYSTITIS Female Adult Prescriptions: Nitrofurantoin Macrocrystals [Macrobid] 100 mg PO Q12 #14 cap Transmission Status: Pending to [facility] Phenazopyridine HCl [Pyridium] 200 mg PO TID #6 tab Transmission Status: Pending to [facility] Referrals: Kaden Meyer [Primary Care Provider] - 5-7 Days
[2020-06-19 14:26] LABS: Internal QC Validated? YES +Cl - CLEAR BKGD; Pregnancy, Urine Negative Negative
[2020-06-19] MEDS: Phenazopyridine 95 MG Tablet 190 MG PO (14:33)
[2020-06-19] MEDS: Nitrofurantoin Macrocrystals 100 MG Capsule PO (14:33)
--- NOTE | 2020-06-19 14:36 | ED.RN ---
DISCHARGE INSTRUCTIONS GIVEN TO AND REVIEWED WITH PATIENT, PATIENT DENIES QUESTIONS OR CONCERNS AND VOICES UNDERSTANDING OF DISCHARGE INSTRUCTIONS. PT AMBULATES OUT OF ROOM WITHOUT DIFFICULTY.
== END 2020-06-19 14:37 | disposition home or self-care (01) ==
PROVIDERS: Emergency Provider Emergency Medicine; PCP Student in an Organized Health Care Education/Training Program
DX: N39.0 Urinary tract infection, site not specified (principal); Z87.442 Personal history of urinary calculi; Z90.49 Acquired absence of other specified parts of digestive tract
CPT/HCPCS: 81001; 81025; 87086; 87088; 99283

== ENCOUNTER → 2021-04-19 13:52 | Outpatient (CLI) | payer BC, SELFPAY ==
--- NOTE | 2021-04-19 14:11 | RAD_ITS ---
STUDY: X-RAY - ABDOMEN/PELVIS REASON FOR EXAM: Female, 26 years old. Urinary calculus. Right-sided pain and history of kidney stones. TECHNIQUE: Single AP view of the abdomen / pelvis. COMPARISON: CT of the abdomen and pelvis, 06/10/2018 FINDINGS: Normal visualized lung bases. There is an unremarkable bowel gas pattern. There is no demonstrated free abdominal air. The visualized liver and spleen are grossly normal in size and morphology. The renal margins are well visualized. There is a 3 x 1 cm calcification Lower pole left kidney. No other evidence of renal or ureteral calcifications are noted. Stable phleboliths in the pelvis. Normal visualized osseous structures. RAD/Abdomen Single View IMPRESSION: Small left lower pole renal calculus. This is thought to correlate with the larger calcification seen on prior CT. No other evidence of renal or ureteral calculi are noted. Electronically Signed: [place] DO at 20:52 EDT Tel [phone], Service support ,
== END ==
PROVIDERS: PCP Student in an Organized Health Care Education/Training Program; Referring Provider Urology; Visit Provider Urology
DX: N20.9 Urinary calculus, unspecified (principal)
CPT/HCPCS: 74018

== ENCOUNTER 2022-02-04 15:29 | Emergency (ER) | payer BC, SELFPAY ==
[2022-02-04 15:30] VITALS: BP 141/84; PULSE 124; RESP 16; TEMP 37.2; O2SAT 98; BMI 31.6
--- NOTE | 2022-02-04 15:42 | EDS_ITS ---
HPI HPI - GI History of Present Illness Chief Complaint: Nausea/Vomiting Informant: patient Abdominal Pain/Flank Pain Onset: Today Current Severity: Mild Maximum Severity: Mild Nausea/Vomiting/Emesis GI Symptom: Positive for Nausea and Vomiting Onset: Today Severity: Moderate Diarrhea/Melena/Hematochezia GI Symptom: Negative for Diarrhea, Melena and Hematochezia Associated Symptoms Associated Symptoms: Negative for Dysuria, Frequency and Hematuria Narrative Narrative: 27-year-old female currently 12 weeks , G1, P0 Ab0. Also history of prior kidney stones. Her due date is 08/21/2022. Today she has had nausea and vomiting. States she started multiple times. No hematemesis. No melena. No fever. No diarrhea constipation. No dysuria. No vaginal bleeding. She has had a prior ultrasound showing a single live IUP. Prior similar symptoms: No Recent Illness/Hospitalization: No PFSH PFSH Home Medications cholecalciferol (vitamin D3) [Vitamin D3] 125 mcg PO DAILY 02/04/22 [History Last Taken Unknown] ondansetron 4 mg PO Q6H PRN #10 tab 02/04/22 [Rx Last Taken Unknown] [id number] [] 1 tab PO DAILY 02/04/22 [History Last Taken Unknown] promethazine 12.5 mg PO DAILY PRN PRN 02/04/22 [History Last Taken Unknown] Allergy/AdvReac Type Severity Reaction Status Date / Time ceftriaxone sodium Allergy Shortness Verified 02/04/22 15:30 [From Rocephin] of breath Social History Smoking Status: Never smoker ROS ROS ED ROS Narrative Nausea, vomiting abdominal pain. Review of Systems ROS Unobtainable: Denies due to encephalopathy Constitutional Constitutional ED: Denies fever(s) ENT ENT ED: Denies ear pain Cardiovascular Cardiovascular: Denies chest pain Respiratory/Chest Respiratory/Chest: Denies dyspnea Gastrointestinal Gastrointestinal: Reports abdominal pain, nausea and vomiting; Denies constipation, diarrhea or melena Genitourinary Genitourinary ED: Denies dysuria or hematuria Musculoskeletal Musculoskeletal: Denies myalgias Integumentary Denies rash Neurologic Neurologic: Denies headache(s) Psychiatric Psychiatric: Denies depression Endocrine Endocrinology: Denies polyuria Hematologic/Lymphatic Hematologic/Lymphatic: Denies easy bruising Allergic/Immunologic Allergic/Immunologic ED: Denies urticaria EXAM Physical Exam Narrative Exam Narrative: 27-year-old female no acute distress. Vital signs are stable afebrile. H EENT exam unremarkable. Mildly dry mucous members. Neck nontender. No lymphadenopathy. Lungs clear to auscultation bilaterally. Heart regular rhythm rate about 115 no murmur. Abdomen soft nondistended normal bowel sounds no peritoneal signs. No right upper or right lower quadrant tenderness. No organomegaly or mass. No obstruction or distention. Soft. Moving all 4 extremities. Back nontender. Neurologic exam normal. Const Vital Signs: 02/04/22 15:30 Temperature 99.0 F Temperature Source Temporal Pulse Rate 124 H Respiratory Rate 16 Blood Pressure 141/84 H Blood Pressure Mean 103 Pulse Ox 98 Oxygen Delivery Method Room Air Positive well nourished and well developed; Negative for obese, cachectic, contractures or unkempt General Appearance ED: well developed and NAD; Negative for unkempt, cachectic, contractures or pallor Nutritional Appearance: Negative for cachectic or obese HEENT Reports dry mucous membranes normocephalic and atraumatic Mouth ED: Yes dry mucous membranes Mouth: dry mucous membranes Eyes PERRL and EOMs intact bilaterally General Eye ED: Negative for pale conjunctiva or scleral icterus Neck no lymphadenopathy, supple and no JVD General: Negative for tenderness Resp normal respiratory effort and clear to auscultation bilaterally Auscultation: Negative for rales, rhonchi or wheezes Cardio regular rate, S1 normal heart sound, S2 normal heart sound and no murmurs; Negative for regular rhythm Rate: tachycardic GI non-tender, non-distended and no masses Auscultation: normoactive bowel sounds Palpation: soft; Negative for tender, guarding or rigid Back/Spine no CVA tenderness General Back: Negative for CVA tenderness Cervical Spine: Negative for cervical spine tenderness Thoracic Spine / Upper Back: Negative for thoracic spinal tenderness Extremity full ROM General Extremety ED: Negative for edema or tenderness General Extremity: Negative for edema Neuro moves all extremities Sensorium / Orientation: alert, oriented to person, oriented to place and oriented to time; Negative for orientation impaired, confused, lethargic or stuporous Motor Exam: strength 5/5 throughout Psych mental status grossly normal and thought process normal Appearance: Negative for unkempt Attitude: No agitated Mood & Affect: Negative for depressed or tearful Skin no wounds General Skin Exam: Negative for jaundice or pallor Lesions: no lesions Rashes: no rashes MDM MDM MDM Narrative Medical decision making narrative: 27-year-old female with nausea and vomiting. Currently almost 12 weeks . Denies any dysuria. Treated with IV fluids. On IV Zofran. P.o. fluid challenge. Check a urinalysis. Repeat exam patient is doing well at 5:24 PM. Abdomen is benign. Her nausea is resolved. She feels better. She was able to hold down fluids. We discussed her test results and outpatient follow-up. She will be written for a prescription for Zofran. Lab Data Attestation: I reviewed the patient's lab results. Lab results narrative: Urinalysis shows no nitrites. Positive [place]. No white cells. 2+ bacteria but I do not think this shows any signs of infection otherwise. Labs: Laboratory Results - last 24 hr 02/04/22 15:50 Urine Color Yellow Urine Clarity Clear Urine pH 6.0 Ur Specific [place] 1.015 Urine Protein 30 H Urine Glucose (UA) Normal Urine Ketones 150 A* Urine Occult Blood Negative Urine Nitrite Negative Urine Bilirubin Negative Urine Urobilinogen Normal Ur Leukocyte Esterase 25 H Urine RBC Not Reportable Urine WBC 0-5 SEEN Ur Squamous Epith Cells 0-5 SEEN Urine Bacteria 2+ Urine Mucus 1+ Discharge Plan Triage Chief Complaint: Nausea/Vomiting ED Provider: Adan Horvath Dx/Rx/DC Orders Clinical Impression: Nausea & vomiting, First trimester , Acute dehydration Instructions: First Trimester, ED Vomiting (Adult) Prescriptions: New ondansetron 4 mg tablet,disintegrating 4 mg PO Q6H PRN (Reason: nausea and vomiting) Qty: 10 RF: 0 No Action promethazine 12.5 mg tablet 12.5 mg PO DAILY PRN PRN (Reason: Nausea And Vomiting) RF: 0 cholecalciferol (vitamin D3) [Vitamin D3] 125 mcg (5,000 unit) Tablet 125 mcg PO DAILY RF: 0 1 mg Tablet 1 tab PO DAILY RF: 0 Primary Care Provider: Kaden Meyer Referrals: Nakia Jeff MD [STAFF PHYSICIAN] - As Needed Kaden Meyer [Primary Care Provider] - Activity Restrictions/Additional Instructions: Plenty of fluids and rest. Increase your diet slowly as tolerated. Follow-up with your METER READERS SUPERVISOR as needed. Zofran as needed for nausea. You may swallow or let dissolve under your tongue. Disposition Disposition: Home, Self Care
[2022-02-04] MEDS: 0.9% Normal Saline 1,000 ML 1000 ML IV (16:01)
[2022-02-04] MEDS: Ondansetron 4 MG/2 ML Vial IV (16:01)
[2022-02-04 16:10] LABS: Color, Urine Yellow (Yellow); Glucose, Dipstick Normal (Normal); Leukocyte Esterase-Dipstick 25 /ul (Negative); Nitrite-Dipstick Negative (Negative); Occult Blood-Urine Negative /ul (Negative); Protein-Dipstick 30 mg/dl (Negative); Specific Gravity, Urine 1.015 (1.002-1.030); Urine Bilirubin Dipstick Negative (Negative); Urine Clarity Clear (Clear); Urine Urobilinogen Normal (Normal)
[2022-02-04 16:12] LABS: Ketone-Dipstick 150 mg/dl (Negative)
[2022-02-04 16:38] LABS: White Blood Cells 0-5 SEEN /hpf (0-5)
[2022-02-04 16:39] LABS: Squamous Epithelial Cells - UA 0-5 SEEN /hpf (5-10)
[2022-02-04 16:40] LABS: Bacteria 2+ /hpf (None Seen); Mucous, Urine 1+ /hpf (<or=2+)
[2022-02-04 17:33] VITALS: PULSE 99; RESP 18; O2SAT 99
== END 2022-02-04 17:34 | disposition home or self-care (01) ==
PROVIDERS: Emergency Provider Emergency Medicine; PCP Student in an Organized Health Care Education/Training Program; Visit Provider Emergency Medicine
DX: O21.9 Vomiting of pregnancy, unspecified (principal); O99.281 Endocrine, nutritional and metabolic diseases complicating pregnancy, first trimester; E86.0 Dehydration; R10.9 Unspecified abdominal pain; Z3A.12 12 weeks gestation of pregnancy
CPT/HCPCS: 81001; 96361; 96374; 99283; J7030; A4216; J2405

== ENCOUNTER 2022-07-17 04:45 | Outpatient (CLI) | payer BC, SELFPAY ==
[2022-07-17 04:56] VITALS: PULSE 112; O2SAT 98
[2022-07-17 04:59] VITALS: TEMP 36
[2022-07-17 05:00] VITALS: BP 130/83; PULSE 82
[2022-07-17 05:18] VITALS: BMI 33.9
[2022-07-17] MEDS: Acetaminophen 500 MG Tablet 1000 MG PO (05:41)
[2022-07-17] MEDS: proMETHazine 25 MG Tablet PO (05:55)
[2022-07-17 08:30] VITALS: BP 126/76; PULSE 83; TEMP 36.4
[2022-07-17 08:45] LABS: Mucous, Urine 0 SEEN /hpf (<or=2+)
[2022-07-17 08:59] LABS: Color, Urine Yellow (Yellow); Glucose, Dipstick Normal (Normal); Leukocyte Esterase-Dipstick 100 /ul (Negative); Nitrite-Dipstick Negative (Negative); Occult Blood-Urine 150 /ul (Negative); Protein-Dipstick 15 mg/dl (Negative); Specific Gravity, Urine 1.015 (1.002-1.030); Urine Bilirubin Dipstick Negative (Negative); Urine Clarity Sl. Cloudy (Clear); Urine Urobilinogen Normal (Normal); Urine pH 6.5 (5.0 - 8.0)
[2022-07-17 09:08] LABS: Ketone-Dipstick 150 mg/dl (Negative)
[2022-07-17 09:09] LABS: Red Blood Cells-Urine 10-25 SEEN /hpf (0-5)
[2022-07-17 09:10] LABS: Bacteria 2+ /hpf (None Seen); Squamous Epithelial Cells - UA 0-5 SEEN /hpf (5-10); White Blood Cells 10-25 SEEN /hpf (0-5)
--- NOTE | 2022-07-20 10:56 | OB.TRI.NOTE ---
HPI - General HPI Narrative ERWIN BALDWIN, is a 27 F who presents Maternal Data Information Final ALLEN: 08/21/22 Gestational age: 34&5 PFSH PFSH Home Medications cholecalciferol (vitamin D3) 125 mcg (5,000 unit) tablet (Vitamin D3) 125 mcg PO DAILY 02/04/22 [History Last Taken Unknown] ondansetron 4 mg disintegrating tablet 4 mg PO Q6H PRN nausea and vomiting #10 tabs 02/04/22 [Rx Last Taken Unknown] uznzonhy-yhw-Ou-FA 1 mg tablet 1 tab PO DAILY 02/04/22 [History Last Taken 07/16/22 09:00] promethazine 12.5 mg tablet 12.5 mg PO DAILY PRN PRN Nausea And Vomiting 02/04/22 [History Last Taken Unknown] Allergy/AdvReac Type Severity Reaction Status Date / Time ceftriaxone sodium Allergy Shortness Verified 07/17/22 05:19 [From Rocephin] of breath Social History Smoking Status: Never smoker NST FHR Rate Baby A Baseline: 120 Variability:: Moderate Accelerations:: 15 x 15 Decelerations:: Variable NST Reactive:: Yes Uterine Activity:: Irritability Assessment & Plan (1) Back pain affecting : PLAN: Reactive NST
== END 2022-07-17 08:37 | disposition home or self-care (01) ==
LOC: WPOUT 04:46 → WP 04:46
PROVIDERS: PCP Student in an Organized Health Care Education/Training Program; Visit Provider Obstetrics & Gynecology
DX: O26.893 Other specified pregnancy related conditions, third trimester (principal); M54.9 Dorsalgia, unspecified; Z3A.34 34 weeks gestation of pregnancy
CPT/HCPCS: 59025; 59050; 81001; 87086; 99218; G0378

== ENCOUNTER 2022-08-14 09:35 | Inpatient (IN) | payer BC, SELFPAY ==
--- NOTE | 2022-08-12 13:18 | PCM.HP.BLA ---
History and Physical Date of Admission: 08/14/22 Pre-Op History and Physical ? HPI: The patient is a 27 year old female presenting for pre-operative visit. She is scheduled for , for GDMA1, LGA, elective primary cs on 08/14/22. Procedure discussed along with risks, benefits and complications. Other alternatives discussed for management. Consent form signed? Yes. ? ? PAST MEDICAL HISTORY PAST MEDICAL HISTORY Diagnosis Date ? Adjustment disorder 12/28/2012 ? Anxiety 12/28/2012 ? Gallstones with obstruction of gallbladder 2003 ? resolved (post surgery) ? Gestational diabetes mellitus, class A1 06/11/2022 ? Ill-defined closed fractures of upper limb 2004 ? Kidney calculus 07/25/2013 ? evaluated by urology ? Knee pain 06/08/2013 ? resolved ? Ovarian cyst 07/25/2013 ? resolved ? PMH - PAST MEDICAL HISTORY OF 05-02-2001 ? normal color vision ? Pneumonia 07/25/2013 ? bilateral lungs ? Respiratory syncytial virus (RSV) ? resolved ? Seasonal allergies 06/08/2013 ? thyroid nodule ? ? ? PAST SURGICAL HISTORY PAST SURGICAL HISTORY Procedure Laterality Date ? CHOLEYCYSTOGRAM GALL BLADDER ? 2003 ? removal ? NEPHROLITHOTOMY REMOVAL STAGE 1 ? 06/12/2018 ? TONSILLECTOMY & ADENOIDECTOMY <AGE 12 ? ? TYMPANOSTOMY LOCAL/TOPICAL ANESTHESIA ? ? TYMPANOSTOMY LOCAL/TOPICAL ANESTHESIA ? CURRENT MEDICATIONS Current Outpatient Medications Medication Sig Dispense Refill ? blood sugar diagnostic test strip 1 Strip four times daily. Use as instructed 120 Strip 9 ? Lancets lancets 1 Each four times daily. Use as instructed 120 Each 9 ? sertraline (ZOLOFT) 25 mg tablet Take 1 tablet by mouth once daily. 30 tablet 0 ? promethazine (PHENERGAN) 12.5 mg tablet Take 1-2 tablets by mouth every 6 hours as needed. 30 tablet 0 ? multivitamin (CLASSIC ) 28 mg iron- 800 mcg tab(s) Take 1 tablet by mouth once daily. ? ? ? cyanocobalamin (VITAMIN B-12) 1,000 mcg tab Take 1,000 mcg by mouth once daily. ? ? ? Cholecalciferol, Vitamin D3, 125 mcg (5,000 unit) cap Take 1 capsule by mouth once daily. 90 capsule 2 ? No current facility-administered medications for this visit. ? ? ALLERGIES: Rocephin [Ceftriaxone] ? PERSONAL HISTORY: SOCIAL HISTORY Social History ? Tobacco Use ? Smoking status: Never ? Smokeless tobacco: Never ? Tobacco comments: ? ? pt does not smoke Vaping Use ? Vaping Use: Never used Substance Use Topics ? Alcohol use: Not Currently ? ? Comment: occasional ? Drug use: No ? FAMILY HISTORY: FAMILY HISTORY FAMILY HISTORY Problem Relation Age of Onset ? Heart Mother ? ? Thyroid Mother ? ? thyroid cancer ? other (Hypotension) Mother ? ? other (Migraine) Mother ? ? other (HELLP) Mother ? ? Hypertension Father ? ? No Known Problems Brother ? ? Thyroid Maternal Grandmother ? ? Hypertension Maternal Grandmother ? ? Hypertension Maternal Grandfather ? ? Diabetes Maternal Grandfather ? ? Heart Maternal Grandfather ? ? other (Migraine) Maternal Grandfather ? ? Heart Paternal Grandmother ? ? Thyroid Paternal Grandmother ? ? No Known Problems Paternal Grandfather ? ? Thyroid Maternal Aunt ? ? other (Migraine) Maternal Uncle ? ? other (Migraine) Other ? ? Maternal cousin ? ? REVIEW OF SYMPTOMS: negative except as noted above PHYSICAL EXAMINATION: ? VITALS: Blood pressure 123/79, weight 182 lb (82.6 kg), last menstrual period 11/07/2021. ? GENERAL: The patient is well nourished, well hydrated in no acute distress. , The patient is oriented to time, place, and person. NECK: full range of motion ABD: gravid, non tender. Cervical exam: closed/40/-5 ? IMPRESSION: @ 39 weeks- GDMA1, LGA, Obesity in with an unfavorable cervix- opting for elective primary cs ? PLAN: Primary elective CS @ 39weeks ? Pt has been counseled on risks/benefits and alternatives of surgery including but not limited to anesthesia, bleeding, infection, injury to pelvic structures including bowel, bladder, ureters and vessels. Pt wishes to proceed with surgery at this time. Possible need for blood transfusion reviewed. ? Discussed with the patient LGA abdominal and estimated weight are both greater than 99th percentile. We discussed that ultrasound may be off by 10 to 15%. Patient and understand that primary section does carry risks and estimated weight may not quite be 5000 g. Patient at this time does not wish to proceed with a vaginal delivery unless she proceeds in active spontaneous labor. On today's exam her cervix is not favorable she is closed thick and head is -5 station it is not engaged into the pelvis. ? Consent was signed. Pre and postop instructions were reviewed with the patient and her . They were given the opportunity ask any questions and they were answered to the best of my ability. ? I have reviewed and updated past medical and surgical history, medications and allergies Ivy Pat MD
[2022-08-14] VITALS (15 sets, daily range): BP systolic 88–126; BP diastolic 53–94; PULSE 75–112; RESP 16–20; TEMP 36.3–37.4; O2SAT 94–99; BMI 33.2
[2022-08-14] MEDS: Acetaminophen 500 MG Tablet 1000 MG PO ×3 (09:50→22:12)
[2022-08-14] MEDS: Lactated Ringers 1,000 ML 999 ML IV (10:10)
[2022-08-14 10:43] LABS: Absolute Neutrophil Count 8.5 X10^3/uL (2.0-7.7); Basophil# 0.02 X10^3/uL; Basophil% 0.2 % (0-1); Eosinophil# 0.06 X10^3/uL; Eosinophils% 0.5 % (0-5); Hematocrit 39.8 % (37-47); Hemoglobin 12.8 g/dL (12.0-15.0); Lymphocyte % 16.5 % (19-41); Mean Corp Hgb Conc 32.2 g/dL (32-36); Mean Corpuscular Hgb 28.6 pg (27.0-32.0); Monocyte# 0.93 X10^3/uL; Monocyte% 8.1 % (0-10); NRBC Flagged by Analyzer 0 % (0-5); Neutrophil # 8.51 X10^3/uL (2.7-7.7); Neutrophil % 74.1 % (47-70); Platelet Count 185 K/mm3 (150-450); RBC Distribution Width CV 13.2 % (11.6-14.6); RBC Distribution Width SD 42.8 fl (35.1-43.9); Red Blood Count 4.47 M/mm3 (4.2-5.4); White Blood Count 11.5 K/mm3 (4.4-11.0)
[2022-08-14 10:56] LABS: Bedside Glucose 74 mg/dL (74-106)
[2022-08-14] MEDS: Lactated Ringers 1,000 ML 150 ML IV (11:15)
[2022-08-14] MEDS: Sodium Citrate/Citric Acid 30 ML UDC PO (11:44)
[2022-08-14] MEDS: Clindamycin 900 MG/50 ML BAG 75 MG IV (12:00)
[2022-08-14] MEDS: Methylergonovine 0.2 MG/ML Ampul IM (12:27)
--- NOTE | 2022-08-14 12:53 | EX.PCM.OBRPT ---
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 She was then placed in the supine position. She was prepped and draped in the normal sterile fashion. Anesthesia was found to be adequate. At this time a Pfannenstiel skin incision was made with a knife was carried down to the underlying layer of the fascia. The fascial incision was then extended laterally blunty. Rectus muscles were then in the midline bluntly and peritoneum was entered bluntly. Gentle opposing traction was placed. At this time the vesicouterine peritoneum was identified. Scalpel was used to make a uterine incision in a low transverse fashion. The uterus was then entered bluntly gentle opposing traction was placed to extend this incision. Membranes were ruptured clear. ifants head was not engaged. Infant's head was brought to the uterine incision was delivered atraumatically. Cord was clamped and cut was handed to the waiting nursery team. The Placenta was removed from the uterus. The uterus was then removed from the abdominal cavity. The uterus was cleared of all clots and debris using a lap. At this time the uterine incision was reapproximated using #1 Vicryl in a running locked fashion followed by second imbricating layer, Hemostasis was appreciated. Posterior cul-de-sac was then cleared of all clots and debris. Uterus was placed back in the abdominal cavity. Gutters were cleared of all clots and debris. Uterine incision was reevaluated and noted to be of excellent hemostasis. Noa placed. At this time the peritoneum was grasped with Kellys and muscle and peritoneum were reapproximated using #2 Vicryl suture in a running fashion. Aristsa placed over rectus muscle. Fascia was then reapproximated using #1 Vicryl in a running fashion. Subcu layer was reapproximated with #2 0 plain gut suture in an interrupted fashion. Noa placed. Subcu layer was closed using 4-0 Monocryl in a subcu fashion. Dry sterile dressing was applied. Instrument lap needle count correct ?2. Anticipated normal postoperative course. Presentation: Positive for Vertex Amniotic Membrane Rupture Type: Artificial Amniotic Fluid Description: Clear Placental Delivery Description: Expressed Placenta Disposition: [facility] Cord Vessel Description: 3 Vessels Cord Entanglement: None A Gender: Female (1 minute): 8 (5 minute): 9 Delayed Cord Clamping: Yes Complications Risks of Surgery Discussed w/Patient: Bleeding, Anesthesia Risks, Infection and Injury to surrounding structure(s) including bowel and bladder Complications: none
[2022-08-14] MEDS: Oxytocin 15 Units/NS 250ml 15 UNITS/250 ML IV.SOLN 83 UNITS IV (13:00)
[2022-08-14] MEDS: Ketorolac 30 MG/ML Syringe IV ×2 (13:38→19:40)
[2022-08-14 14:25] LABS: Bedside Glucose 89 mg/dL (74-106)
[2022-08-14] MEDS: Lactated Ringers 1,000 ML 100 ML IV (16:41)
[2022-08-15 01:15] VITALS: PULSE 78; RESP 17; O2SAT 96
[2022-08-15] MEDS: Ketorolac 30 MG/ML Syringe IV ×2 (02:36→09:53)
[2022-08-15] MEDS: 0.9% Saline Lock 10 ML Syringe IV (02:36)
--- NOTE | 2022-08-15 02:54 | NURSING ---
This RN emptied matute cath at 2200 for 200 ml of urine output for 7 hours. Output was just under minimum needed for adequate output and pt still had LR running at 100ml/hr. Pt was encouraged to increase oral fluids as tolerated. When in to observe urine output at 0115, slightly longer than 3 hours from last emptying matute, pt only had about 50 ml of output in matute bag. This RN did fundal check and uterus was firm but slihgtly displaced to the right side. PT stated she did not feel like her bladder was full. After adjusting matute draining tube, the urine output began to increase and when emptied at 0200, pt had 450 ml out in 4 hours. This RN gave toradol at 0230 after emptying matute for adequate amount. Matute was in place longer then 12 hours to have a precise measurment of output to allow adequate urine output to take place.
[2022-08-15 03:13] VITALS: BP 102/45; PULSE 63; RESP 17; TEMP 37.1; O2SAT 95
[2022-08-15] MEDS: Acetaminophen 500 MG Tablet 1000 MG PO ×4 (04:30→23:05)
[2022-08-15] MEDS: Sertraline 50 MG Tablet 25 MG PO (05:35)
[2022-08-15 05:51] LABS: Hemoglobin 8.8 g/dL (12.0-15.0); Mean Corp Hgb Conc 32.6 g/dL (32-36); Mean Corpuscular Hgb 29.2 pg (27.0-32.0); Mean Corpuscular Volume 89.7 fL (81-99); Mean Platelet Vol. 11.2 fl (6.2-12.0); Platelet Count 172 K/mm3 (150-450); RBC Distribution Width CV 13.2 % (11.6-14.6); RBC Distribution Width SD 42.5 fl (35.1-43.9); Red Blood Count 3.01 M/mm3 (4.2-5.4); White Blood Count 14.1 K/mm3 (4.4-11.0)
[2022-08-15 06:06] LABS: Bedside Glucose 69 mg/dL (74-106)
--- NOTE | 2022-08-15 08:05 | PCM.PN.OB ---
Subjective Subjective Doing well per patient and nursing staff. Ambulating and taking PO without difficulty. Voiding and passing flatus. Pain controlled. , services for assistance. Denies headache, visual changes, chest pain, shortness of breath, leg pain or increased bleeding. Lochia normal. Objective Data Objective Data Vital Signs: Vital Signs Temp Pulse Resp BP Pulse Ox O2 Del Method 98.7 F 63 17 102/45 L 95 Room Air 08/15/22 03:13 08/15/22 03:13 08/15/22 03:13 08/15/22 03:13 08/15/22 03:13 08/15/22 03:13 Oxygen Delivery Method Room Air Weight: 181 lb 7.047 oz Body Mass Index (BMI) 33.2 Intake & Output: Intake and Output for Last 24 Hours 08/13/22 08/14/22 08/15/22 23:59 23:59 23:59 Intake Total 1592.5 / 1592.5 990 / 990 Output Total 450 / 450 550 / 550 Balance 1142.5 / 1142.5 440 / 440 Lab / Micro Data Result Diagrams: 08/15/22 05:41 Labs: Laboratory Results - last 24 hr 08/14/22 10:10: WBC 11.5 H, RBC 4.47, Hgb 12.8, Hct 39.8, MCV 89.0, MCH 28.6, MCHC 32.2, RDW Std Deviation 42.8, RDW Coeff of Bart 13.2, Plt Count 185, MPV 12.0, Immature Gran % (Auto) 0.600, Neut % (Auto) 74.1 H, Lymph % (Auto) 16.5 L, [place] % (Auto) 8.1, Eos % (Auto) 0.5, Baso % (Auto) 0.2, Absolute Neuts (auto) 8.5 H, Absolute Lymphs (auto) 1.90, Nucleated RBC % 0 08/14/22 10:10: Blood Type O POSITIVE, Antibody Screen NEGATIVE 08/14/22 10:27: POC Glucose 74 08/14/22 13:43: POC Glucose 89 08/15/22 05:41: WBC 14.1 H, RBC 3.01 L, Hgb 8.8 L, Hct 27.0 L, MCV 89.7, MCH 29.2, MCHC 32.6, RDW Std Deviation 42.5, RDW Coeff of Bart 13.2, Plt Count 172, MPV 11.2 08/15/22 05:42: POC Glucose 69 L Physical Exam Const alert and oriented x3 General Appearance: cooperative Orientation / Consciousness: awake, oriented to person, oriented to place and oriented to time Exam Limitations: no limitations HEENT normocephalic Head and Scalp: normal to inspection, normocephalic and atraumatic Face and Sinus: normal facial exam Eyes General Eye: normal appearance of both eyes Neck full ROM Chest Chest: symmetrical chest wall rise Resp normal respiratory effort and normal air movement Auscultation: clear to auscultation bilaterally Cardio regular rate, regular rhythm, S1 normal heart sound, S2 normal heart sound, no murmurs, no rub, no gallops and no clicks GI normal to inspection, nondistended, normoactive bowel sounds and non-tender GI Narrative: Incision dressing dry and intact appearance of the vagina normal Bladder / Kidney Exam: no CVA tenderness Back/Spine normal ROM Extremity normal to inspection and full ROM Skin no rashes or lesions noted Neuro oriented x3, CN's II-XII intact bilaterally and moves all extremities Sensorium / Orientation: awake, alert and oriented to person Motor Exam: clonus absent Deep Tendon Reflexes: Rt Patellar (L4): 2+ and Lt Patellar (L4): 2+ Assessment & Plan (1) S/P primary low transverse : (2) Lactating mother: (3) Acute blood loss anemia: PLAN: Plan 1) Routine postoperative care 2) Vitals stable 3) Hgb 126 to 8.8, asymptomatic, will start ferrous sulfate 325mg PO once daily 4) Would like D/C home today 5) Follow up in 1-2 weeks for incision check 6) D/C home
--- NOTE | 2022-08-15 08:08 | DS.PCM_ITS ---
Providers Date of Admission: 08/14/22 Primary Care Physician: Kaden Meyer Reason For Visit: PRIMARY C SECTION Diagnosis Discharge Diagnosis (1) S/P primary low transverse : Status: Acute Code(s): Z98.891 - History of uterine scar from previous surgery (2) Lactating mother: Status: Acute Code(s): Z39.1 - Encounter for care and examination of lactating mother (3) Acute blood loss anemia: Status: Acute Code(s): D62 - Acute posthemorrhagic anemia (4) Postoperative pain: Status: Acute Code(s): G89.18 - Other acute postprocedural pain Plan 1) Routine postoperative care 2) Vitals stable 3) Hgb 126 to 8.8, asymptomatic, will start ferrous sulfate 325mg PO once daily 4) Would like D/C home today 5) Follow up in 1-2 weeks for incision check 6) D/C home Medications at Discharge Home Medications cholecalciferol (vitamin D3) 125 mcg (5,000 unit) tablet (Vitamin D3) 125 mcg PO DAILY 02/04/22 feqwlncx-exc-Wf-FA 1 mg tablet 1 tab PO DAILY 02/04/22 sertraline 25 mg tablet (Zoloft) 25 mg PO DAILY anxiety 08/14/22 acetaminophen 500 mg tablet 1,000 mg PO Q6H #0 tabs 08/15/22 ibuprofen 600 mg tablet 600 mg PO Q6H #0 tabs 08/15/22 oxycodone 5 mg tablet 5 mg PO Q6H 7 days #10 tabs 08/15/22 Hospital Course Summary of Care Provided Hospital Course: Presented on 08/14/22 for primary low transverse section due to LGA, GDMA1. Acute blood loss anemia postoperatively. Discharge home on postop day #1. Weight / BMI Weight Weight: 181 lb 7.047 oz Body Mass Index (BMI) 33.2 ABG / Lab / Microbiology Data Result Diagrams: 08/15/22 05:41 Laboratory: Laboratory Results - last 24 hr 08/14/22 10:10: WBC 11.5 H, RBC 4.47, Hgb 12.8, Hct 39.8, MCV 89.0, MCH 28.6, MCHC 32.2, RDW Std Deviation 42.8, RDW Coeff of Bart 13.2, Plt Count 185, MPV 12.0, Immature Gran % (Auto) 0.600, Neut % (Auto) 74.1 H, Lymph % (Auto) 16.5 L, [place] % (Auto) 8.1, Eos % (Auto) 0.5, Baso % (Auto) 0.2, Absolute Neuts (auto) 8.5 H, Absolute Lymphs (auto) 1.90, Nucleated RBC % 0 08/14/22 10:10: Blood Type O POSITIVE, Antibody Screen NEGATIVE 08/14/22 10:27: POC Glucose 74 08/14/22 13:43: POC Glucose 89 08/15/22 05:41: WBC 14.1 H, RBC 3.01 L, Hgb 8.8 L, Hct 27.0 L, MCV 89.7, MCH 29.2, MCHC 32.6, RDW Std Deviation 42.5, RDW Coeff of Bart 13.2, Plt Count 172, MPV 11.2 08/15/22 05:42: POC Glucose 69 L Meaningful Use Info Meaningful Use Diagnoses (Choose all that apply): None applicable Discharge Plan Admission Admit Date/Time: 08/14/22 09:35 Primary Reason for Your Visit: section Attending Provider: Ivy Jones Primary Care Provider: Kaden Meyer Instructions Patient Instructions: After a Discharge Orders/Prescriptions Prescriptions: New acetaminophen 500 mg Tablet 1,000 mg PO Q6H Qty: 0 0RF ibuprofen 600 mg Tablet 600 mg PO Q6H Qty: 0 0RF oxycodone 5 mg Tablet 5 mg PO Q6H 7 Days Qty: 10 0RF Continued cholecalciferol (vitamin D3) [Vitamin D3] 125 mcg (5,000 unit) Tablet 125 mcg PO DAILY gizmdozg-ifg-Mu-FA 1 mg Tablet 1 tab PO DAILY sertraline [Zoloft] 25 mg Tablet 25 mg PO DAILY Discontinued promethazine 12.5 mg tablet 12.5 mg PO DAILY PRN PRN (Reason: Nausea And Vomiting) ondansetron 4 mg tablet,disintegrating 4 mg PO Q6H PRN (Reason: nausea and vomiting) Qty: 10 0RF Referrals / Follow Up: Kaden Meyer [Primary Care Provider] - Disposition Disposition (needs filled in before D/C Order can be placed): Home, Self Care
[2022-08-15 08:15] VITALS: BP 111/61; PULSE 80; RESP 17; TEMP 37.1; O2SAT 94
[2022-08-15] MEDS: Senna/Docusate Sodium 1 Tablet PO (09:53)
[2022-08-15] MEDS: Ferrous Sulfate 325 MG Tablet PO (11:59)
[2022-08-15 12:00] VITALS: BP 119/65; PULSE 72; RESP 17; TEMP 36.9; O2SAT 96
[2022-08-15] MEDS: Ibuprofen 600 MG Tablet PO ×2 (16:43→23:04)
[2022-08-15 16:45] VITALS: BP 112/61; PULSE 78; RESP 17; TEMP 37.1; O2SAT 96
[2022-08-15] MEDS: oxyCODONE 5 MG Tablet PO (17:54)
[2022-08-15 20:17] VITALS: BP 108/56; PULSE 80; RESP 16; TEMP 36.9
[2022-08-16 02:21] VITALS: BP 114/63; PULSE 80; RESP 16; TEMP 36.9
[2022-08-16] MEDS: Acetaminophen 500 MG Tablet 1000 MG PO ×2 (05:01→11:25)
[2022-08-16] MEDS: Ibuprofen 600 MG Tablet PO ×2 (05:02→11:25)
[2022-08-16 08:36] VITALS: BP 113/67; PULSE 77; RESP 14; TEMP 36.8; O2SAT 96
--- NOTE | 2022-08-16 09:06 | PCM.PN.OB ---
Subjective Subjective Denies complaints Objective Data Objective Data Vital Signs: Vital Signs Temp Pulse Resp BP Pulse Ox O2 Del Method 98.3 F 77 14 113/67 96 Room Air 08/16/22 08:36 08/16/22 08:36 08/16/22 08:36 08/16/22 08:36 08/16/22 08:36 08/16/22 08:36 Oxygen Delivery Method Room Air Weight: 181 lb 7.047 oz Body Mass Index (BMI) 33.2 Intake & Output: Intake and Output for Last 24 Hours 08/14/22 08/15/22 08/16/22 23:59 23:59 23:59 Intake Total 1592.5 / 1592.5 990 / 990 Output Total 450 / 450 1900 / 1900 Balance 1142.5 / 1142.5 -910 / -910 Lab / Micro Data Result Diagrams: 08/15/22 05:41 Assessment & Plan (1) Acute blood loss anemia: (2) Lactating mother: (3) S/P primary low transverse : COMMENT: POD#2 PLAN: D/c to home
[2022-08-16] MEDS: Sertraline 50 MG Tablet 25 MG PO (09:47)
[2022-08-16] MEDS: Senna/Docusate Sodium 1 Tablet PO (09:48)
[2022-08-16] MEDS: Ferrous Sulfate 325 MG Tablet PO (14:19)
[2022-08-16 14:42] VITALS: BP 119/68; PULSE 83; RESP 16; TEMP 35.9; O2SAT 98
== END 2022-08-16 16:45 | disposition home or self-care (01) | DRG 787 ==
PROVIDERS: Admitting Provider Obstetrics & Gynecology; PCP Student in an Organized Health Care Education/Training Program; Referring Provider Obstetrics & Gynecology; Visit Provider Obstetrics & Gynecology
PROC: 10D00Z1 Extraction of Products of Conception, Low, Open Approach (ICD-10-PCS; CPT 59514; principal; 2022-08-14 11:45)
DX: O24.429 Gestational diabetes mellitus in childbirth, unspecified control (principal); D62 Acute posthemorrhagic anemia; O99.03 Anemia complicating the puerperium; O99.214 Obesity complicating childbirth; E66.9 Obesity, unspecified; O36.63X0 Maternal care for excessive fetal growth, third trimester, not applicable or unspecified; Z37.0 Single live birth; Z3A.39 39 weeks gestation of pregnancy
CPT/HCPCS: 59025; 59050; 82962; 85025; 85027; 86850; 86900; 86901; 99218; J7120; A4216; G0378; J2405

== ENCOUNTER 2025-09-02 05:19 | Inpatient (IN) | payer BC, SELFPAY ==
--- NOTE | 2025-09-01 08:43 | HP.PCM.OB_ITS ---
History and Physical Date of Admission: 09/02/25 Expand All Collapse All Pre-Op History and Physical HPI: The patient is a 30 year old female presenting for pre-operative visit. She is scheduled for , for repeat elective CS on 09/02/25. Procedure discussed along with risks, benefits and complications. Other alternatives discussed for management. Consent form signed? Yes. Past Medical History PAST MEDICAL HISTORY Diagnosis Date ? Adjustment disorder 12/28/2012 ? Anxiety 12/28/2012 ? Gallstones with obstruction of gallbladder 2003 resolved (post surgery) ? Gestational diabetes mellitus, class A1 ([facility]) 06/11/2022 ? History of gestational diabetes in prior , currently ([facility]) 01/31/2025 ? Ill-defined closed fractures of upper limb 2004 ? Kidney calculus 07/25/2013 evaluated by urology ? Knee pain 06/08/2013 resolved ? Nephrolithiasis 06/19/2018 ? Ovarian cyst 07/25/2013 resolved ? PMH - PAST MEDICAL HISTORY OF 05/02/2001 normal color vision ? Pneumonia 07/25/2013 bilateral lungs ? Respiratory syncytial virus (RSV) 08/1996 resolved ? Seasonal allergies 06/08/2013 ? thyroid nodule PAST SURGICAL HISTORY PAST SURGICAL HISTORY Procedure Laterality Date ? DELIVERY ONLY 08/14/2022 [facility] ? CHOLEYCYSTOGRAM GALL BLADDER 2003 removal ? EXTRACTION ERUPTED TOOTH/EXR Bilateral bottem ? NEPHROLITHOTOMY REMOVAL STAGE 1 06/12/2018 ? TONSILLECTOMY & ADENOIDECTOMY <AGE 13 04/2001 ? TYMPANOSTOMY LOCAL/TOPICAL ANESTHESIA 02/1997 ? TYMPANOSTOMY LOCAL/TOPICAL ANESTHESIA 08/1999 CURRENT MEDICATIONS Current Outpatient Medications Medication Sig Dispense Refill ? insulin NPH (NOVOLIN N FLEXPEN) 100 unit/mL (3 mL) pen Inject 10 Units subcutaneously daily at bedtime. 3 mL 2 ? aspirin, enteric coated (ECOTRIN LOW STRENGTH) 81 mg EC tablet Take 1 tablet by mouth once daily. 90 tablet 3 ? vit/iron fum/folic ac ( TABLET ORAL) Take 1 tablet by mouth once daily. ? sertraline (ZOLOFT) 100 mg tablet Take 1 tablet by mouth once daily. 90 tablet 3 ? insulin needles, DISPOSABLE, (PEN NEEDLE) 31 gauge x 5/16 1 each once daily. 30 each 2 ? blood sugar diagnostic test strip Use as directed to check glucose levels up to seven times daily. 200 strip 8 ? Lancets Use as directed to check glucose levels up to seven times daily. 200 each 8 ? alcohol swabs (ALCOHOL PREP PADS) Use as directed to check glucose levels up to seven times daily. 200 each 8 No current facility-administered medications for this visit. ALLERGIES: Rocephin [Ceftriaxone] PERSONAL HISTORY: [Social History] [Social History] Tobacco Use ? Smoking status: Never ? Smokeless tobacco: Never ? Tobacco comments: pt does not smoke Vaping Use ? Vaping status: Never Used Substance Use Topics ? Alcohol use: Not Currently Comment: occasional ? Drug use: No FAMILY HISTORY: Family History FAMILY HISTORY Problem Relation Age of Onset ? Heart Mother ? Thyroid Mother thyroid cancer ? other (Hypotension) Mother ? other (Migraine) Mother ? other (HELLP) Mother ? Hypertension Father ? No Known Problems Brother ? Thyroid Maternal Grandmother ? Hypertension Maternal Grandmother ? Breast Cancer Maternal Grandmother 73 ? Hypertension Maternal Grandfather ? Diabetes Maternal Grandfather ? Heart Maternal Grandfather ? other (Migraine) Maternal Grandfather ? Heart Paternal Grandmother ? Thyroid Paternal Grandmother ? No Known Problems Paternal Grandfather ? Thyroid Maternal Aunt ? other (Migraine) Maternal Uncle ? other (Migraine) Other Maternal cousin REVIEW OF SYMPTOMS: negative except as noted above PHYSICAL EXAMINATION: VITALS: Blood pressure 120/70, weight 87.5 kg (193 lb), last menstrual period 11/30/2024. GENERAL: The patient is well nourished, well hydrated in no acute distress. , The patient is oriented to time, place, and person. NECK: full range of motion ABD: gravid, non tender IMPRESSION: @ 38.3 weeks for repeat cs, GMDA2, obesity in PLAN: repeat cs @ 39 weeks Pt has been counseled on risks/benefits and alternatives of surgery including but not limited to anesthesia, bleeding, infection, injury to pelvic structures including bowel, bladder, ureters and vessels. Pt wishes to proceed with surgery at this time. I have reviewed and updated past medical and surgical history, medications and allergies Ivy Pat MD Routine Office Visit on 08/26/2025 Note viewed by patient
[2025-09-02] VITALS (21 sets, daily range): BP systolic 94–132; BP diastolic 56–89; PULSE 68–114; RESP 14–26; TEMP 36.1–37.3; O2SAT 94–100; BMI 35.3
--- OUTSIDE RECORDS SUMMARY | 2025-09-02 05:19 | XMS RPT_ITS | CCD ---
Author Organization [facility] Inform ion Partnership [facility] Care Team Providers Care Insurance Administrator Name Role Phone Kaden Meyer DO Primary Care Provider Kaden Meyer DO Primary Care Provider Fletcher BOTTLE CAPPING MACHINE OPERATOR.CONTRACTS MANAGERKatt Unavailable Samson BOTTLE CAPPING MACHINE OPERATOR.Daria BLACKMON Unavailable Shaylee BOTTLE CAPPING MACHINE OPERATOR.Joselin BLACKMON Unavailable Ivy Jones Attending Unavail able Ivy Jones Admitting Unavail able Meyer Kaden [place] Primary Care Unavailable NEIVY VANN Referring Unavail able MEYER, KADEN L Primary Care Unavailable IVY ALBARRAN Referring Unavail able MEYER, KADEN L Primary Care Unavailable MEYER, KADEN L Primary Care Unavailable GERMAN ALBARRANRE Referring Unavail able MEYER, KADEN L Primary Care Unavailable HELLEN RICHARDSON Referring Unavailable MEYER, KADEN L Primary Care Unavailable HELLEN RICHARDSON Referring Unavailable MEYER, KADEN L Primary Care Unavailable NEYJACQUELINET IVY HERNANDEZ Referring Unavail able MEYER, KADEN L Primary Care Unavailable IVY ALBARRAN Referring Unavail able IVY ALBARRAN Attending Unavail able MEYER, KADEN L Primary Care Unavailable NEPERRYT MARY IVY Referring Unavail able MEYER, KADEN L Primary Care Unavailable MARINE, ROWENA Referring Unavailable MEYER, KADEN L Primary Care Unavailable IVY ALBARRAN Attending Unavail able MEYER, KADEN L Primary Care Unavailable MARINE, ROWENA Referring Unavailable MEYER, KADEN L Primary Care Unavailable NEYHART HERNANDEZ, IVY Referring Unavail able MEYER, KADEN L Primary Care Unavailable MEYER, KADEN L Attending Unavailable MEYER, KADEN L Primary Care Unavailable MARINE, ROWENA Referring Unavailable MEYER, KADEN L Primary Care Unavailable WISJOCELYN SCHERERA Attending Unavailable MEYER, KADEN L Primary Care Unavailable NECARINA HERNANDEZ IVY Attending Unavail able MEYER, KADEN L Primary Care Unavailable NEYHART HERNANDEZ, IVY Referring Unavail able GAMAL MCCARTY Attending Unavailable MEYER, KADEN L Primary Care Unavailable NEPERRYT HERNANDEZGERMAN CHANDRARE Attending Unavail able MEYER, KADEN L Primary Care Unavailable MEYER, KADEN L Primary Care Unavailable NEYHART HERNANDEZ, IVY Referring Unavail able MEYER, KADEN L Primary Care Unavailable JOCELYN VENTURAA Attending Unavailable MEYER, KADEN L Primary Care Unavailable GERMAN ALBARRANRE Attending Unavail able MEYER, KADEN L Primary Care Unavailable NEYHART HERNANDEZ, IVY Referring Unavail able MEYER, KADEN L Primary Care Unavailable NEFatmataHART HERNANDEZ, IVY Attending Unavail able MEYER, KADEN L Primary Care Unavailable JENNIFER DELANEY Attending Unavailable MEYER, KADEN L Primary Care Unavailable JENNIFER DELANEY Referring Unavailable MEYER, KADEN L Primary Care Unavailable NEPERRYT MARY, IVY Referring Unavail able MEYER, KADEN L Primary Care Unavailable QUETAT GERMAN HERNANDEZRE Attending Unavail able MEYER, KADEN L Primary Care Unavailable MEYER, KADEN L Primary Care Unavailable NEYHART HERNANDEZ, IVY Referring Unavail able MEYER, KADEN L Primary Care Unavailable NEYHART HERNANDEZ, IVY Referring Unavail able HELLEN RICHARDSON Attending Unavailable MEYER, KADEN L Primary Care Unavailable NEYHART HERNANDEZ, IVY Attending Unavail able MEYER, KADEN L Primary Care Unavailable NEYHART HERNANDEZ, IVY Referring Unavail able MEYER, KADEN L Primary Care Unavailable MARINE, ROWENA Attending Unavailable MEYER, KADEN L Primary Care Unavailable NEYHART HERNANDEZ, IVY Attending Unavail able MEYER, KADEN L Primary Care Unavailable IVY ALBARRAN Referring Unavail KADEN Mcallister Primary Care Unavailable KADEN MEYER Attending Unavailable Allergies Allergy Classification Reported Allergen(s) Allergy Type Date of Onset Reaction(s) Facility Cephalosporins (antibiotic) (2 sources) cefTRIAXone Drug Allergy 5 Hives [facility] Work Phone: (20 sources) cefTRIAXone; Translations: [CEFTRIAXONE] Drug Allergy 5 Hives, Shortness of Breath [facility] Work Phone: (3 sources) cefTRIAXone; Translations: [ceftriaxone sodium] Drug Allergy 2 Shortness of breath [facility] Repository Medications Current Medications Medication Drug Class(es) Dates Sig (Normalized) Sig (Original) acetaminophen 500 mg oral tablet (1 source) Start: 08-15-2022 take 1000 mg by mouth every six hours Acetaminophen Active 1000 MG PO EVERY 6 HOURS 0 August 15, 2022 12:00am aspirin 81 mg delayed release oral tablet (14 sources) Platelet Aggregation Inhibitor, Nonsteroidal Anti-inflammatory Drug Start: 01-31-2025 take 1 tablet by mouth once daily aspirin, enteric coated (ECOTRIN LOW STRENGTH) 81 mg EC tablet Indications: with uncertain dates in first trimester (HCC) Take 1 tablet by mouth once daily. 90 tablet 3 01/31/2025 Active Blood-Glucose Meter (2 sources) Start: 06-11-2022 End: 06-12-2022 Blood-Glucose Meter Indications: Abnormal maternal glucose tolerance, antepartum 1 Each as directed for 1 day. 1 Each 0 06/11/2022 06/12/2022 Active Comment on above: 1 Each as directed f or 1 day. cholecalciferol 0.125 mg oral tablet (20 sources) Vitamin D Start: 02-04-2022 take 1 tablet by mouth once daily Cholecalciferol (Vitamin D3) (Vitamin D3) 125 mcg (5,000 unit) Tablet Active 125 MCG PO DAILY February 04, 2022 4:02pm Start: 11-29-2021 End: 05-21-2023 take 1 capsule by mouth once daily Cholecalciferol, Vitamin D3, 125 mcg (5,000 unit) cap Indications: Vitamin D deficiency Take 1 capsule by mouth once daily. 90 capsule 2 11/29/2021 05/21/2023 Discontinued Comment on above: Take [address] [facility] once daily. ibuprofen 600 mg oral tablet (1 source) Nonsteroidal Anti-inflammatory Drug Start: 022 take 600 mg by mouth every six hours Ibuprofen Active 600 MG PO EVERY 6 HOURS August 15, 2022 12:00am naproxen 500 mg oral tablet (2 sources) Nonsteroidal Anti-inflammatory Drug Start: 023 End: take 1 tablet by mouth twice daily at mealtime naproxen (NAPROSYN) 500 mg tablet Indications: Jaw pain , Lymphadenopathy, submandibular Take 1 tablet by mouth twice daily with meals for 7 days. Take with food. 14 tablet 0 05/21/2023 05/28/2023 Active Comment on above: Take 1 tablet by [facility] twice daily with meals for 7 days. Take with food. ondansetron 4 mg disintegrating oral tablet (20 sources) Serotonin-3 Receptor Antagonist Start: 025 End: 025 take 1 tablet by mouth every eight hours as needed for nausea and nausea ondansetron orally disintegrating (ZOFRAN ODT) 4 mg disintegrating tablet Indications: Nausea Take 1 tablet by mouth every 8 hours as needed for nausea/vomiting. 20 tablet 1 03/18/2025 Active Start: 02-04-2022 End: 08-15-2022 take 4 mg by mouth every six hours Ondansetron Active 4 MG PO EVERY 6 HOURS February 04, 2022 5:25pm oseltamivir 75 mg oral capsule (3 sources) Neuraminidase Inhibitor Start: 10-12-2024 End: 10-17-2024 take 1 capsule by mouth twice daily oseltamivir (TAMIFLU) 75 mg capsule Indications: URI, acute , Fever, unspecified fever cause , Acute cough Take 1 capsule by mouth two times a day for 5 days. 10 capsule 10/12/2024 10/17/2024 Active oxyCODONE hydrochloride 5 mg oral tablet (1 source) Opioid Agonist Start: 08-15-2022 take 5 mg by mouth every six hours Oxycodone Active 5 MG PO EVERY 6 HOURS 10 7 August 15, 2022 polymyxin b [id number] unt/ml / trimethoprim 1 mg/ml ophthalmic solution (1 source) Dihydrofolate Reductase Inhibitor Antibacterial, Polymyxin-class Antibacterial Start: 08-06-2024 End: 08-13-2024 take 1 drop(s) into the eye(s) every four hours trimethoprim-polym yxin (POLYTRIM) 10,000 unit- 1 mg/mL ophthalmic solution Indications: [place] eye disease of right eye Use 1 Drop in the right eye every 4 hours for 7 days. 10 mL 08/06/2024 08/13/2024 Active Hsmambtf-Ayx-Fd-Fa (1 source) Start: 02-04-2022 take 1 tablet by mouth once daily Npgqejyx-Qyc-Pu-Fa Active 1 TABLET PO DAILY 2022 11:00pm Pmvizwie-Nnl-Qc-Fa () 1 mg Tablet (1 source) Start: 02-04-2022 take 1 tablet by mouth once daily Ohxqtosp-Rco-Gp-Fa () 1 mg Tablet Active 1 TABLET PO DAILY February 04, 2022 4:03pm multivitamin (CLASSIC ) 28 mg iron- 800 mcg tab(s) (20 sources) End: 05-21-2023 take 1 tablet by mouth once daily multivitamin (CLASSIC ) 28 mg iron- 800 mcg tab(s) Take 1 tablet by mouth once daily. 0 05/21/2023 Discontinued take 1 tablet by mouth once destin y multivitamin (CLASSIC ) 28 mg iron- 800 mcg tab(s) Take 1 tablet by mouth once daily. 0 Active Comment on above: Take 1 tablet by [facility] once daily. vit/iron fum/folic ac ( TABLET ORAL) (14 sources) take 1 tablet by mouth once daily before mealtime vit/iron fum/folic ac ( TABLET ORAL) Take 1 tablet by mouth once daily. Active sertraline 100 mg oral tablet (20 sources) Serotonin Reuptake Inhibitor Start: 10-03-2023 End: 03-08-2025 take 1 tablet by mouth once daily sertraline (ZOLOFT) 100 mg tablet Take 1 tablet by mouth once daily. 90 tablet 3 12/08/2024 Active Start: 04-04-2023 End: 07-03-2023 take 1 tablet by mouth once daily sertraline (ZOLOFT) 100 mg tablet Take 1 tablet by mouth once daily. 90 tablet 0 04/04/2023 Active Start: 12-26-2022 End: 04-02-2023 take 1 tablet by mouth once daily sertraline (ZOLOFT) 100 mg tablet Take 1 tablet by mouth once daily. 90 tablet 0 12/26/2022 04/02/2023 Discontinued Start: 09-25-2022 take 1 tablet by [facility] once daily sertraline (ZOLOFT) 50 mg tablet Indications: EMILEE (generalized anxiety disorder) Take 1 tablet by mouth once daily. 90 tablet 3 09/25/2022 Active Start: 09-13-2022 End: 09-25-2022 take 1 tablet by mouth once daily sertraline (ZOLOFT) 25 mg tablet Indications: EMILEE (generalized anxiety disorder) Take 1 tablet by mouth once daily. 30 tablet 0 09/13/2022 09/25/2022 Discontinued Start: 03-20-2022 End: 08-08-2022 take 1 tablet by mouth once daily Sertraline (Zoloft) 25 mg Tablet Active 25 MG PO DAILY August 14, 2022 12:00am Comment on above: Take 1 tablet by [facility] once daily. TAKE 1 TABLET BY [facility] EVERY DAY vitamin b12 1 mg oral tablet (20 sources) Vitamin B12 End: 05-21-2023 take 1 tablet by mouth once daily cyanocobalamin (VITAMIN B-12) 1,000 mcg tab Take 1,000 mcg by mouth once daily. 0 05/21/2023 Discontinued Comment on above: Take 1,000 mcg by mo [facility] once daily. Completed/Discontinued Medications Medication Drug Class(es) Dates Sig (Normalized) Sig (Original) amoxicillin 500 mg oral capsule (8 sources) Penicillin-class Antibacterial Start: 05-21-2023 End: 11-26-2023 take 1 capsule by mouth three times daily amoxicillin (AMOXIL) 500 mg capsule Indications: Jaw pain , Lymphadenopathy, submandibular Take 1 capsule by mouth three times daily. 14 capsule 0 05/21/2023 11/26/2023 Discontinued Comment on above: Take 1 capsule by mo [facility] three times daily. azithromycin 250 mg oral tablet (10 sources) Macrolide Antimicrobial Start: 10-12-2024 End: 01-04-2025 azithromycin (ZITHROMAX Z-EVELYN) 250 mg tablet Indications: URI, acute , Acute cough Take 2 tablets PO day 1, THEN 1 TAB DAILY FOR 4 DAYS. 6 tablet 10/12/2024 01/04/2025 Discontinued Start: 08-06-2024 End: 08-11-2024 take 2 tablets by mouth once daily, then take 1 tablet by mouth once daily azithromycin (ZITHROMAX) 250 mg tablet Indications: Respiratory infection Take 2 tablets by mouth once daily for 1 day, THEN 1 tablet once daily for 4 days. 6 tablet 08/06/2024 08/11/2024 Active doxycycline hyclate 100 mg oral capsule (10 sources) Tetracycline-class Drug Start: 10-12-2024 End: 01-04-2025 take 1 capsule by mouth twice daily doxycycline hyclate (VIBRAMYCIN) 100 mg capsule Indications: URI, acute , Acute cough Take 1 capsule (100 mg) by mouth two times a day. 20 capsule 10/12/2024 01/04/2025 Discontinued Start: 04-10-2023 End: 04-15-2023 take 1 tablet by mouth twice daily doxycycline monohydrate 100 mg tablet Take 1 tablet by mouth twice daily for 5 days. 10 tablet 0 04/10/2023 04/15/2023 Active Comment on above: Take 1 tablet by [facility] twice daily for 5 days. ferrous sulfate (3 sources) End: 10-30-2022 ferrous sulfate (IRON ORAL) Take by mouth. 0 10/30/2022 Discontinued ferrous sulfate (IRON ORAL) Take by mouth. 0 Active Comment on above: Take by mouth. ketoconazole 20 mg/ml topical cream (17 sources) Azole Antifungal Start: 05-21-2023 End: 08-06-2024 ketoconazole (NIZORAL) 2 % cream Indications: Yeast infection of the skin Apply to affected area once daily. 15 g 1 05/21/2023 08/06/2024 Discontinued (Course of therapy completed) Comment on above: Apply to affected ar ea once daily. letrozole 2.5 mg oral tablet (6 sources) Aromatase Inhibitor Start: 12-29-2024 End: 01-04-2025 letrozole (FEMARA) 2.5 mg tablet Take 2 tablets by mouth once daily for 5 days. On cycle days 3-7 10 tablet 12/29/2024 01/04/2025 Discontinued Start: 12-01-2024 End: 12-29-2024 letrozole (FEMARA) 2.5 mg ta blet Take on Cycle Days 3-7 5 tablet 12/01/2024 12/29/2024 Discontinued promethazine hydrochloride 12.5 mg oral tablet (20 sources) Phenothiazine Start: 02-04-2022 End: 10-30-2022 take 12.5-25 mg by mouth every six hours as needed promethazine (PHENERGAN) 12.5 mg tablet Take 1-2 tablets by mouth every 6 hours as needed. 30 tablet 0 02/04/2022 10/30/2022 Discontinued Start: 02-04-2022 End: 08-15-2022 take 12.5 mg by mouth once daily as needed Promethazine Active 12.5 MG PO DAILY NEEDED February 04, 2022 3:56pm Comment on above: Take 1-2 tablets by mouth every 6 hours as needed. Problems Active Problems Problem Classification Problem Date Documented Date Episodic/Chronic Acute posthemorrhagic anemia (2 sources) Acute posthemorrhagic anemia; Translations: [Acute posthemorrhagic anemia] Episodic Adjustment disorders (20 sources) Adjustment disorder; Translations: [Adjustment disorder, unspecified] Onset: 12-28-2012 12-28-2012 Chronic Anxiety disorders (20 sources) Anxiety; Translations: [Anxiety disorder, unspecified] Onset: 12-28-2012 12-28-2012 Chronic Coagulation and hemorrhagic disorders (3 sources) Easy bruising; Translations: [Spontaneous ecchymoses] Episodic Diabetes or abnormal glucose tolerance complicating ; childbirth; or the puerperium (20 sources) Abnormal glucose level; Translations: [Abnormal glucose complicating ] Onset: 05-29-2022 Resolved: 01-31-2025 05-29-2022 Episodic Disorders of teeth and jaw (1 source) Jaw pain; Translations: [Jaw pain] 05-21-2023 Episodic Female infertility (5 sources) Female infertility; Translations: [Female infertility, unspecified] Onset: 12-27-2024 09-10-2024 Chronic Fever of unknown origin (1 source) Fever; Translations: [Fever, unspecified] 10-12-2024 Episodic Fluid and electrolyte disorders (2 sources) Dehydration; Translations: [Dehydration] Episodic 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; 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] Onset: 10-19-2024 10-19-2024 Chronic Headache; including migraine (1 source) Headache; including migraine; Translations: [ headache in second trimester (HCC)] Onset: 06-07-2025 Immunizations and screening for infectious disease (6 sources) Vaccination needed; Translations: [Encounter for immunization] Onset: 01-31-2025 Episodic Inflammation; infection of eye (except that caused by tuberculosis or sexually transmitteddisease) (1 source) Conjunctivitis; Translations: [Other mucopurulent conjunctivitis, right eye] 08-06-2024 Episodic Lymphadenitis (1 source) Submandibular lymphadenopathy; Translations: [Localized enlarged lymph nodes] 05-21-2023 Episodic Menopausal disorders (3 sources) Menorrhagia; Translations: [Excessive bleeding in the premenopausal period] Onset: 10-19-2024 10-14-2024 Chronic Menstrual disorders (3 sources) Dysmenorrhea; Translations: [Dysmenorrhea, unspecified] Onset: 10-19-2024 10-14-2024 Chronic Mycoses (1 source) Candidiasis of skin; Translations: [Candidiasis of skin and nail] 05-21-2023 Episodic Nausea and vomiting (4 sources) Nausea and vomiting; Translations: [Nausea with vomiting, unspecified] 10-12-2024 Episodic Nutritional deficiencies (1 source) Vitamin D deficiency; Translations: [Vitamin D deficiency, unspecified] Chronic Other complications of (5 sources) Maternal obesity complicating , childbirth and the puerperium, antepartum; Translations: [Obesity complicating , second trimester] Chronic Other complications of (5 sources) Obesity; Translations: [Obesity complicating , unspecified trimester] Chronic Other complications of (2 sources) Obesity complicating , first trimester; Translations: [Obesity affecting in first trimester, unspecified obesity type (HCC)] Onset: 07-11-2025 Chronic Other complications of (1 source) Obesity complicating , third trimester; Translations: [Obesity affecting , antepartum, third trimester (HCC)] Onset: 07-19-2025 Chronic Other complications of (20 sources) Excessive growth affecting management of mother; Translations: [Maternal care for excessive growth, third trimester, not applicable or unspecified] Onset: 05-29-2022 05-29-2022 Episodic Other complications of (2 sources) Back pain complicating ; Translations: [Back pain affecting ] Episodic Other complications of (4 sources) Supervision of with other poor reproductive or obstetric history, second trimester; Translations: [ with other poor obstetric history] Onset: 07-11-2025 04-04-2025 Episodic Other complications of (1 source) Headache; Translations: [Other specified related conditions, second trimester] 06-07-2025 Episodic Other complications of (1 source) Supervision of high risk , unspecified, third trimester; Translations: [Supervision of high risk in third trimester (HCC)] Onset: 07-19-2025 Episodic Other complications of (1 source) Other specified related conditions, second trimester; Translations: [ headache in second trimester (HCC)] Onset: 06-07-2025 Episodic Other connective tissue disease (1 source) Pain of bilateral hands; Translations: [Pain in right hand] 11-26-2023 Episodic Other eye disorders (1 source) Bilateral vitreous floaters; Translations: [Other vitreous opacities, bilateral] 06-07-2025 Chronic Other eye disorders (1 source) Other vitreous opacities, bilateral; Translations: [Vitreous floaters of both eyes] Onset: 06-07-2025 Chronic Other infections; including parasitic (1 source) Personal history of other infectious and parasitic diseases; Translations: [History of COVID-19] Episodic Other lower respiratory disease (1 source) Respiratory tract infection; Translations: [Other specified respiratory disorders] 08-06-2024 Episodic Other lower respiratory disease (1 source) Cough; Translations: [Acute cough] 10-12-2024 Episodic Other nervous system disorders (1 source) Postoperative pain ; Translations: [Other acute postprocedural pain] Episodic Other nervous system disorders (1 source) Other acute postprocedural pain; Translations: [Other acute postoperative pain] Episodic Other nutritional; endocrine; and metabolic disorders (1 source) Body mass index 30+ - obesity; Translations: [Body mass index (BMI) 34.0-34.9, adult] 01-31-2025 Chronic Other conditions (1 source) Exceptionally large at ; Translations: [Exceptionally large baby] Episodic Other and delivery including normal (20 sources) with uncertain dates; Translations: [Encounter for supervision of normal , unspecified, first trimester] Onset: 01-01-2025 Episodic Other screening for suspected conditions (not mental disorders or infectious disease) (9 sources) Other specified abnormal findings of blood chemistry; Translations: [Other nonspecific findings on examination of blood] Onset: 04-11-2025 Episodic Other skin disorders (1 source) Skin lesion; Translations: [Disorder of the skin and subcutaneous tissue, unspecified] 04-10-2023 Episodic Other upper respiratory disease (20 sources) Seasonal allergy; Translations: [Other seasonal allergic rhinitis] Onset: 06-08-2013 06-08-2013 Chronic Other upper respiratory infections (1 source) Acute upper respiratory infection; Translations: [Acute upper respiratory infection, unspecified] 10-12-2024 Episodic Residual codes; unclassified (1 source) Gestation period, 11 weeks; Translations: [11 weeks gestation of ] Episodic Residual codes; unclassified (1 source) Gestation period, 15 weeks; Translations: [15 weeks gestation of ] Episodic Residual codes; unclassified (2 sources) Gestation period, 19 weeks; Translations: [19 weeks gestation of ] Episodic Residual codes; unclassified (2 sources) Gestation period, 28 weeks; Translations: [28 weeks gestation of ] Episodic Residual codes; unclassified (1 source) Gestation period, 30 weeks; Translations: [30 weeks gestation of ] Episodic Residual codes; unclassified (1 source) Gestation period, 34 weeks; Translations: [34 weeks gestation of ] Episodic Residual codes; unclassified (2 sources) Gestation period, 36 weeks; Translations: [36 weeks gestation of ] Episodic Residual codes; unclassified (1 source) Gestation period, 37 weeks; Translations: [37 weeks gestation of ] Episodic Residual codes; unclassified (1 source) Gestation period, 38 weeks; Translations: [38 weeks gestation of ] Episodic Residual codes; unclassified (1 source) History of uterine scar from previous surgery; Translations: [Other postprocedural status] Episodic Residual codes; unclassified (1 source) Gestation period, 8 weeks; Translations: [8 weeks gestation of ] 01-31-2025 Episodic Residual codes; unclassified (2 sources) Gestation period, 12 weeks; Translations: [12 weeks gestation of ] 02-28-2025 Episodic Residual codes; unclassified (1 source) Gestation period, 17 weeks; Translations: [17 weeks gestation of ] 04-04-2025 Episodic Residual codes; unclassified (1 source) Gestation period, 18 weeks; Translations: [18 weeks gestation of ] 04-11-2025 Episodic Residual codes; unclassified (1 source) Gestation period, 21 weeks; Translations: [21 weeks gestation of ] 05-02-2025 Episodic Residual codes; unclassified (1 source) Gestation period, 25 weeks; Translations: [25 weeks gestation of ] 05-30-2025 Episodic Residual codes; unclassified (1 source) Gestation period, 27 weeks; Translations: [27 weeks gestation of ] 06-07-2025 Episodic Residual codes; unclassified (1 source) 34 weeks gestation of ; Translations: [34 weeks gestation of (HCC)] Onset: 07-26-2025 Episodic Residual codes; unclassified (1 source) 33 weeks gestation of ; Translations: [33 weeks gestation of (HCC)] Onset: 07-19-2025 Episodic Residual codes; unclassified (1 source) 32 weeks gestation of ; Translations: [32 weeks gestation of (HCC)] Onset: 07-12-2025 Episodic Residual codes; unclassified (1 source) 29 weeks gestation of ; Translations: [29 weeks gestation of (HCC)] Onset: 06-27-2025 Episodic Residual codes; unclassified (1 source) 27 weeks gestation of ; Translations: [27 weeks gestation of (HCC)] Onset: 06-07-2025 Episodic Residual codes; unclassified (1 source) 25 weeks gestation of ; Translations: [25 weeks gestation of (HCC)] Onset: 05-30-2025 Episodic Thyroid disorders (20 sources) Goiter; Translations: [Iodine-deficiency related diffuse (endemic) goiter] Onset: 06-19-2018 06-19-2018 Chronic Unclassified (14 sources) [facility] - COMMON Onset: 01-31-2025 01-31-2025 Unclassified (14 sources) Education - [place] Onset: 01-31-2025 01-31-2025 Urinary tract infections (4 sources) Urinary tract infectious disease; Translations: [Urinary tract infection, site not specified] Episodic Viral infection (1 source) Viral disease; Translations: [Viral infection, unspecified] 06-08-2023 Episodic Past or Other Problems Problem Classification Problem Date Documented Da te Episodic/Chronic Calculus of urinary tract (20 sources) Kidney stone; Translations: [Calculus of kidney] Onset: 07-25-2013 Resolved: 01-31-2025 09-17-2021 Episodic Diabetes mellitus without complication (20 sources) Hyperglycemia; Translations: [Impaired fasting glucose] Onset: 03-08-2020 03-08-2020 Episodic Hemorrhage during ; abruptio placenta; placenta previa (20 sources) Low lying placenta; Translations: [Low lying placenta NOS or without hemorrhage, unspecified trimester] Onset: 03-28-2022 Resolved: 05-29-2022 Episodic Malaise and fatigue (20 sources) Fatigue; Translations: [Other fatigue] Onset: 06-19-2018 06-19-2018 Episodic Other complications of (20 sources) Disease caused by 2019-nCoV; Translations: [Other viral diseases complicating , third trimester] Onset: 05-29-2022 05-29-2022 Episodic Other complications of (20 sources) History of gestational diabetes mellitus; Translations: [Supervision of with other poor reproductive or obstetric history, unspecified trimester] Onset: 01-31-2025 01-31-2025 Episodic Other complications of (19 sources) size does not accord with dates; Translations: [Uterine size-date discrepancy, unspecified trimester] Onset: 01-31-2025 Resolved: 04-04-2025 01-31-2025 Episodic Other complications of (1 source) Uterine size-date discrepancy, unspecified trimester; Translations: [ size inconsistent with dates (HCC)] Onset: 05-02-2025 Episodic Other complications of (1 source) Supervision of with other poor reproductive or obstetric history, unspecified trimester; Translations: [History of gestational diabetes in prior , currently (HCC)] Onset: 01-31-2025 Episodic Other connective tissue disease (20 sources) Iliotibial band friction syndrome; Translations: [Iliotibial band syndrome, unspecified leg] Onset: 07-05-2013 07-05-2013 Episodic Other gastrointestinal disorders (20 sources) Abdominal bloating; Translations: [Abdominal distension (gaseous)] Onset: 03-08-2020 03-08-2020 Episodic Other nutritional; endocrine; and metabolic disorders (20 sources) H/O: thyroid disorder; Translations: [Personal history of other endocrine, nutritional and metabolic disease] Onset: 12-13-2021 12-13-2021 Episodic Ovarian cyst (20 sources) Cyst of ovary; Translations: [Unspecified ovarian cyst, unspecified side] Onset: 07-25-2013 Resolved: 08-11-2015 08-11-2015 Episodic Residual codes; unclassified (20 sources) FH: Thyroid disorder; Translations: [Family history of other endocrine, nutritional and metabolic diseases] Onset: 06-19-2018 06-19-2018 Episodic Residual codes; unclassified (1 source) 18 weeks gestation of ; Translations: [18 weeks gestation of ([facility])] Onset: 04-11-2025 Episodic Residual codes; unclassified (1 source) 17 weeks gestation of ; Translations: [17 weeks gestation of ([facility])] Onset: 04-04-2025 Episodic Residual codes; unclassified (1 source) 12 weeks gestation of ; Translations: [12 weeks gestation of ([facility])] Onset: 02-28-2025 Episodic Residual codes; unclassified (1 source) 8 weeks gestation of ; Translations: [8 weeks gestation of ([facility])] Onset: 01-31-2025 Episodic Screening and history of mental health and substance abuse codes (20 sources) H/O: anxiety state; Translations: [Personal history of other mental and behavioral disorders] Onset: 12-13-2021 12-13-2021 Episodic Unclassified (1 source) Prior macrosomia, antepartum, second trimester ([facility]) 05-30-2025 Results Test Name Value Interpretation Reference Range Facil tacho Ngo 07-07-2025 CNPN Telephone (OBGYWM) ERWIN BALDWIN ([id number]) 1995 F Date Time Provider Department 07/07/25 IVY ALBARRANANNA During your visit today, we recorded the following information about you: Gracia Anne RN 07/07/2025 8:56 AM Signed Breast pump order received. To DM to sign. POONAM Plascencia Lindsey, RN 07/07/2025 2:07 PM Signed Order signed and faxed. Tiffanie Roque RN Allergies As of Date: 07/07/2025 Noted Allergy Reaction ROCEPHIN (CEFTRIAXONE) 06/18/2005 4 - Hives 12 - Shortness of Breath Date Reviewed: 06/27/2025 Reviewed by: Yenny Thakur MA - Fully Assessed Reason for Visit: Breast Pump [Other] Prescriptions as of 07/07/2025 - blood sugar diagnostic test strip Use as directed to check glucose levels up to seven times daily. - Lancets Use as directed to check glucose levels up to seven times daily. - alcohol swabs (ALCOHOL PREP PADS) Use as directed to check glucose levels up to seven times daily. - aspirin, enteric coated (ECOTRIN LOW STRENGTH) 81 mg EC tablet Take 1 tablet by mouth once daily. - vit/iron fum/folic ac ( TABLET ORAL) Take 1 tablet by mouth once daily. - sertraline (ZOLOFT) 100 mg tablet Take 1 tablet by mouth once daily. Problem List As Of Date 07/07/2025 Noted Resolved Adjustment disorder [F43.20] 12/28/2012 Anxiety [F41.9] 12/28/2012 Seasonal allergies [J30.2] 06/08/2013 IT band syndrome [M76.30] 07/05/2013 Ovarian cyst [N83.209] 07/25/2013 08/11/2015 Kidney calculus [N20.0] 07/25/2013 01/31/2025 Routine physical examination [Z00.00] 06/19/2018 10/15/2018 Thyromegaly [E01.0] 06/19/2018 Fatigue [R53.83] 06/19/2018 Family history of thyroid disease [Z83.49] 06/19/2018 Nephrolithiasis [N20.0] 06/19/2018 01/31/2025 Bloating [R14.0] 03/08/2020 EMILEE (generalized anxiety disorder) [F41.1] 03/08/2020 Elevated fasting glucose [R73.01] 03/08/2020 Thyroid nodule [E04.1] 03/08/2020 History of anxiety [Z86.59] 12/13/2021 History of thyroid nodule [Z86.39] 12/13/2021 Low-lying placenta [O44.40] 03/28/2022 05/29/2022 COVID-19 affecting in third trimester*05/29/2022 Abnormal glucose complicating (HCC) [*05/29/2022 01/31/2025 Gestational diabetes mellitus, class A1 ([facility]) [*06/11/2022 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] 10/19/2024 History of gestational diabetes in prior pregna*01/31/2025 Encounter for supervision of normal i*01/31/2025 size inconsistent with dates ([facility]) [O26.8*01/31/2025 04/04/2025 Encounter Status:Closed by TIFFANIE ROQUE on 07/07/25 Normal [facility] CBC W Auto Differential pane l (Bld)on 06-13-2025 Basophils (Bld) [#/Vol] 10*3/uL Normal <0.11 [facility] Comment on above: Order Comment: Speci men Type: BLOOD SPECIMENOrdering Facility: [facility] Address: [address] [place] [address] Performed By: #### 5 7021-8 ####[facility] [id number] [place] [address] [place] Basophils/100 WBC (Bld) 0.2 % Normal [facility] Comment on above: Order Comment: Speci men Type: BLOOD SPECIMENOrdering Facility: [facility] Address: [address] [place] [address] Performed By: #### 5 7021-8 ####[facility] [id number] [place] [address] [place] Differential cell count method Nom (Bld) Auto Normal [facility] Comment on above: Order Comment: Speci men Type: BLOOD SPECIMENOrdering Facility: [facility] Address: [address] [place] [address] Performed By: #### 5 7021-8 ####[facility] [id number] [place] [address] [place] Eosinophils (Bld) [#/Vol] 0.10 10*3/uL Normal <0.46 [facility] Comment on above: Order Comment: Speci men Type: BLOOD SPECIMENOrdering Facility: [facility] Address: [address] [place] [address] Performed By: #### 5 7021-8 ####[facility] [id number] [place] [address] [place] Eosinophils/100 WBC (Bld) 0.9 % Normal [facility] Comment on above: Order Comment: Speci men Type: BLOOD SPECIMENOrdering Facility: [facility] Address: [address] [place] [address] Performed By: #### 5 7021-8 ####[facility] [id number] [place] [address] [place] Erythrocyte distribution width (RBC) [Ratio] 13.0 % Normal 11.5-15.0 [facility] Comment on above: Order Comment: Speci men Type: BLOOD SPECIMENOrdering Facility: [facility] Address: [address] [place] [address] Performed By: #### 5 7021-8 ####[facility] [id number] [place] [address] [place] Hematocrit (Bld) [Volume fraction] 36.9 % Normal 36.0-46.0 [facility] Comment on above: Order Comment: Speci men Type: BLOOD SPECIMENOrdering Facility: [facility] Address: [address] [place] [address] Performed By: #### 5 7021-8 ####[facility] [id number] [place] [address] [place] Hemoglobin (Bld) [Mass/Vol] 13.0 g/dL Normal 11.5-15.5 [facility] Comment on above: Order Comment: Speci men Type: BLOOD SPECIMENOrdering Facility: [facility] Address: [address] [place] [address] Performed By: #### 5 7021-8 ####[facility] [id number] [place] [address] [place] Immature granulocytes (Bld) [#/Vol] 0.08 10*3/uL Normal <0.10 [facility] Comment on above: Order Comment: Speci men Type: BLOOD SPECIMENOrdering Facility: [facility] Address: [address] [place] [address] Performed By: #### 5 7021-8 ####[facility] [id number] [place] [address] [place] Immature granulocytes/100 WBC (Bld) 0.7 % Normal [facility] Comment on above: Order Comment: Speci men Type: BLOOD SPECIMENOrdering Facility: [facility] Address: [address] [place] [address] Performed By: #### 5 7021-8 ####[facility] [id number] [place] [address] [place] Lymphocytes (Bld) [#/Vol] 1.73 10*3/uL Normal 1.00-4.00 [facility] Comment on above: Order Comment: Speci men Type: BLOOD SPECIMENOrdering Facility: [facility] Address: [address] [place] [address] Performed By: #### 5 7021-8 ####[facility] [id number] [address] [place] Lymphocytes/100 WBC (Bld) 14.8 % Normal [facility] Comment on above: Order Comment: Speci men Type: BLOOD SPECIMENOrdering Facility: [facility] Address: [address] [place] [address] Performed By: #### 5 7021-8 ####[facility] [id number] [place] [address] [place] MCH (RBC) [Entitic mass] 29.3 pg Normal 26.0-34.0 [facility] Comment on above: Order Comment: Speci men Type: BLOOD SPECIMENOrdering Facility: [facility] Address: [address] [place] [address] Performed By: #### 5 7021-8 ####[facility] [id number] [address] [place] MCHC (RBC) [Mass/Vol] 35.2 g/dL Normal 30.5-36.0 [facility] Comment on above: Order Comment: Speci men Type: BLOOD SPECIMENOrdering Facility: [facility] Address: [address] [place] [address] Performed By: #### 5 7021-8 ####[facility] [id number] [place] [address] [place] MCV (RBC) [Entitic vol] 83.1 fL Normal 80.0-100.0 [facility] Comment on above: Order Comment: Speci men Type: BLOOD SPECIMENOrdering Facility: [facility] Address: [address] [place] [address] Performed By: #### 5 7021-8 ####[facility] [id number] [place] [address] [place] Monocytes (Bld) [#/Vol] 0.66 10*3/uL Normal <0.87 [facility] Comment on above: Order Comment: Speci men Type: BLOOD SPECIMENOrdering Facility: [facility] Address: [address] [place] [address] Performed By: #### 5 7021-8 ####[facility] TREMAYNEFAWNA [id number] [place] [address] [place] Monocytes/100 WBC (Bld) 5.7 % Normal [facility] Comment on above: Order Comment: Speci men Type: BLOOD SPECIMENOrdering Facility: [facility] Address: [address] [place] [address] Performed By: #### 5 7021-8 ####[facility]ITALN[facility] [id number] [place] [address] [place] Neutrophils (Bld) [#/Vol] 9.06 10*3/uL High 1.45-7.50 [facility] Comment on above: Order Comment: Speci men Type: BLOOD SPECIMENOrdering Facility: [facility] Address: [address] [place] [address] Performed By: #### 5 7021-8 ####[facility] [id number] [place] [address] [place] Neutrophils/100 WBC (Bld) 77.7 % Normal [facility] Comment on above: Order Comment: Speci men Type: BLOOD SPECIMENOrdering Facility: [facility] Address: [address] [place] [address] Performed By: #### 5 7021-8 ####[facility]ITALNCLIA [id number] [place] [address] [place] Nucleated RBC (Bld) [#/Vol] 10*3/uL Normal <0.01 [facility] Comment on above: Order Comment: Speci men Type: BLOOD SPECIMENOrdering Facility: [facility] Address: [address] [place] [address] Performed By: #### 5 7021-8 ####[facility] FELIA [id number] [place] [address] [place] Nucleated RBC/100 WBC (Bld) [Ratio] 0.0 /100 WBC Normal [facility] Comment on above: Order Comment: Speci men Type: BLOOD SPECIMENOrdering Facility: [facility] Address: [address] [place] [address] Performed By: #### 5 7021-8 ####[facility] TREMAYNEWHITE HALLRUDDYA [id number] [place] [address] [place] Platelet mean volume (Bld) [Entitic vol] 10.6 fL Normal 9.0-12.7 [facility] Comment on above: Order Comment: Speci men Type: BLOOD SPECIMENOrdering Facility: [facility] Address: [address] [place] [address] Performed By: #### 5 7021-8 ####[facility]ITALCYNTHIAA [id number] [place] [address] [place] Platelets (Bld) [#/Vol] 207 10*3/uL Normal 150-400 [facility] Comment on above: Order Comment: Speci men Type: BLOOD SPECIMENOrdering Facility: [facility] Address: [address] [place] [address] Performed By: #### 5 7021-8 ####[facility]ITALCYNTHIALIA [id number] [place] [address] [place] RBC (Bld) [#/Vol] 4.44 10*6/uL Normal 3.90-5.20 [facility] Comment on above: Order Comment: Speci men Type: BLOOD SPECIMENOrdering Facility: [facility] Address: [address] [place] [address] Performed By: #### 5 7021-8 ####[facility]ITALNCLIA [id number] [place] [address] [place] WBC (Bld) [#/Vol] 11.65 10*3/uL High 3.70-11.00 [facility] Comment on above: Order Comment: Speci men Type: BLOOD SPECIMENOrdering Facility: [facility] Address: [address] [place] [address] Performed By: #### 5 7021-8 ####[facility] SONIAJOSSY CASPERSELECT SPECIALTY HOSPITAL - INDIANAPOLISLIA [id number] [address] [place] CNPNon 06-13-2025 CNPN Telephone (OBGYWM) ERWIN BALDWIN ([id number]) 1995 F Date Time Provider Department 06/13/25 IVY ALBARRAN OBGYWM During your visit today, we recorded the following information about you: Diane Fraga RN 06/13/2025 4:55 PM Signed Ivy Albarran MD to [facility] Bander Pool 06/13/25 3:29 PM Result Note Please notify patient she failed GCT and since number above 200 does not need to complete 3 hrs- she is considered Gest DM. See if she needs any more testing supplies- will need to see tobacco prevention health educator/nutrition. Bring BS log next visit. Results reviewed. Please Place copy in OB chart GESTATIONAL GLUCOSE SCREEN, 1-HOUR, 50 GRAM, NON-FASTING; COMPLETE BLOOD COUNT AND DIFFERENTIAL; EXTRA TUBE ZO Diane Fraga RN 06/13/2025 4:55 PM Signed Spoke to Pt and informed her of 1hr Glucose results and no need to complete 3 hour test. Snapjoyt message sent to Pt. Gestational DM orders pended. OB growth US scheduled for 06/16/25. Pt states she has glucose monitor, but does not have any supplies. Advised Pt that may be best to have all supplies sent as the strips will need to match monitor. Pt agreeable. Please file orders. Pt will then need to be called to get tobacco prevention health educator/nutrition appt scheduled. POONAM Fry Deidre, MD 06/14/2025 8:23 AM Signed ordered Hellen Snyder RN 06/14/2025 8:31 AM Signed Please file the pending Endocrinology certified caregiver order. Will then reach out to patient with scheduling instructions. Thank you. POONAM Kirkpatrick Deidre, MD 06/14/2025 8:33 AM Signed ordered Allergies As of Date: 06/13/2025 Noted Allergy Reaction ROCEPHIN (CEFTRIAXONE) 06/18/2005 4 - Hives 12 - Shortness of Breath Date Reviewed: 06/13/2025 Reviewed by: Emile Velazquez MA - Fully Assessed Reason for Visit: Orders [681] Primary Visit Diagnosis:Diet controlled gestational diabetes mellitus (GDM) in third trimester (HCC) [O24.410] Order(s):Blood-Glucose MeterUse as directed to check glucose levels up to seven times daily.Disp: 1 eachRfl: 0 blood sugar diagnostic test stripUse as directed to check glucose levels up to seven times daily.Disp: 200 stripRfl: 8 LancetsUse as directed to check glucose levels up to seven times daily.Disp: 200 eachRfl: 8 alcohol swabs (ALCOHOL PREP PADS)Use as directed to check glucose levels up to seven times daily.Disp: 200 eachRfl: 8 OBSTETRIC ULTRASOUND I [[id number]] Order #: [id number]: 1 STANDING CONSULT TO DIABETES EDUCATION DSME [0603657] Order #: [id number]: 2 FUTURE CONSULT TO NUTRITION THERAPY [9020] Order #: [id number]: 4 FUTURE ENDOCRINOLOGY DIETITIAN VISIT (MNT) [[id number]] Order #: [id number]: 4 FUTURE Prescriptions as of 06/14/2025 - Blood-Glucose Meter Use as directed to check glucose levels up to seven times daily. - blood sugar diagnostic test strip Use as directed to check glucose levels up to seven times daily. - Lancets Use as directed to check glucose levels up to seven times daily. - alcohol swabs (ALCOHOL PREP PADS) Use as directed to check glucose levels up to seven times daily. - aspirin, enteric coated (ECOTRIN LOW STRENGTH) 81 mg EC tablet Take 1 tablet by mouth once daily. - vit/iron fum/folic ac ( TABLET ORAL) Take 1 tablet by mouth once daily. - sertraline (ZOLOFT) 100 mg tablet Take 1 tablet by mouth once daily. Problem List As Of Date 06/13/2025 Noted Resolved Adjustment disorder [F43.20] 12/28/2012 Anxiety [F41.9] 12/28/2012 Seasonal allergies [J30.2] 06/08/2013 IT band syndrome [M76.30] 07/05/2013 Ovarian cyst [N83.209] 07/25/2013 08/11/2015 Kidney calculus [N20.0] 07/25/2013 01/31/2025 Routine physical examination [Z00.00] 06/19/2018 10/15/2018 Thyromegaly [E01.0] 06/19/2018 Fatigue [R53.83] 06/19/2018 Family history of thyroid disease [Z83.49] 06/19/2018 Nephrolithiasis [N20.0] 06/19/2018 01/31/2025 Bloating [R14.0] 03/08/2020 EMILEE (generalized anxiety disorder) [F41.1] 03/08/2020 Elevated fasting glucose [R73.01] 03/08/2020 Thyroid nodule [E04.1] 03/08/2020 History of anxiety [Z86.59] 12/13/2021 History of thyroid nodule [Z86.39] 12/13/2021 Low-lying placenta [O44.40] 03/28/2022 05/29/2022 COVID-19 affecting in third trimester*05/29/2022 Abnormal glucose complicating (HCC) [*05/29/2022 01/31/2025 Gestational diabetes mellitus, class A1 (HCC) [*06/11/2022 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 BLOO (more content not included)... Normal [facility] GESTATIONAL GLUCOSE SCREEN, 1-HOUR, 50 GRAM, NON-FASTINGon 06-13-2025 Glucose [Mass/Vol] 218 mg/dL High 74-134 [facility] Comment on above: Order Comment: Speci men Type: SWAB [facility] Address: [address] [place] [address] Result Comment: [facility] Congress of Obstetricians and Gynecologists (Lencho/Jayson) guidelines state a gestational diabetes mellitus positive screen is made, in women not previously diagnosed with overt diabetes, when the 1 hr plasma glucose level is equal to or above 140 mg/dL. The [facility] Cardroom Worker and [facility] [place] recommends a 135 mg/dL cutoff. Performed By: #### 3 6902-5, TRVAMP #### [facility] CLIA [id number] [address] [place] [address] [place] Reagin and Treponema pallidu m IgG and IgM [Interp]on 06-13-2025 T. pallidum IgG+IgM IA Ql (S) Non-Reactive Normal Nonreactive [facility] Comment on above: Order Comment: Speci men Type: SWAB [facility] Address: [address] [place] [address] Performed By: #### 3 6902-5, TRVAMP #### [facility] CLIA [id number] [address] [place] [address] [place] Reagin+T pallidum IgG+IgM Se rPl-Impon 06-13-2025 Reagin and Treponema pallidum IgG and IgM [Interp] Cannot exclude recent Treponemal infection if specimen collected within 7-10 days after appearance of suspect lesions or 2-3 weeks after an exposure. Clinical correlation is required. Normal [facility] Comment on above: Order Comment: Speci men Type: SWAB [facility] Address: [address] [place] [address] Performed By: #### 3 6902-5, SAURABH #### [facility] CLIA [id number] [address] [place] [address] [place] [address] [place] CBC W Auto Differential pane l (Bld)on 06-07-2025 Basophils (Bld) [#/Vol] [facility] Basophils/100 WBC (Bld) 0.2 % [facility] Differential cell count method Nom (Bld) Auto [facility] Eosinophils (Bld) [#/Vol] 0.13 10*3/uL [facility] Eosinophils/100 WBC (Bld) 1.1 % [facility] Erythrocyte distribution width (RBC) [Ratio] 13.0 % 11.5 - 15.0 % [facility] Hematocrit (Bld) [Volume fraction] 35.6 % Low 36.0 - 46.0 % [facility] Hemoglobin (Bld) [Mass/Vol] 12.5 g/dL 11.5 - 15.5 g/dL [facility] Immature granulocytes (Bld) [#/Vol] 0.10 10*3/uL High [facility] Immature granulocytes/100 WBC (Bld) 0.8 % [facility] Interpretation and review of laboratory results Abnormal [facility] Lymphocytes (Bld) [#/Vol] 2.22 10*3/uL [facility] Lymphocytes/100 WBC (Bld) 18.4 % [facility] MCH (RBC) [Entitic mass] 29.5 pg 26.0 - 34.0 pg [facility] MCHC (RBC) [Mass/Vol] 35.1 g/dL 30.5 - 36.0 g/dL [facility] MCV (RBC) [Entitic vol] 84.0 fL 80.0 - 100.0 fL [facility] Monocytes (Bld) [#/Vol] 0.74 10*3/uL [facility] Monocytes/100 WBC (Bld) 6.1 % [facility] Neutrophils (Bld) [#/Vol] 8.86 10*3/uL High [facility] Neutrophils/100 WBC (Bld) 73.4 % [facility] Nucleated RBC (Bld) [#/Vol] NINF [facility] Nucleated RBC/100 WBC (Bld) [Ratio] 0.0 % /100 WBC [facility] Platelet mean volume (Bld) [Entitic vol] 10.4 fL 9.0 - 12.7 fL [facility] Platelets (Bld) [#/Vol] 211 10*3/uL [facility] RBC (Bld) [#/Vol] 4.24 10*6/uL 3.90 - 5.2 0 m/uL [facility] WBC (Bld) [#/Vol] 12.07 10*3/uL [facility] Basophils (Bld) [#/Vol] 10*3/uL Normal <0.11 [facility] Comment on above: Order Comment: Speci men Type: BLOOD SPECIMENOrdering Facility: [facility] Address: [address] [place] [address] Performed By: #### 5 7021-8 ####[facility] [id number] [place] [address] [place] Basophils/100 WBC (Bld) 0.2 % Normal [facility] Comment on above: Order Comment: Speci men Type: BLOOD SPECIMENOrdering Facility: [facility] Address: [address] [place] [address] Performed By: #### 5 7021-8 ####[facility] [id number] [place] [address] [place] Differential cell count method Nom (Bld) Auto Normal [facility] Comment on above: Order Comment: Speci men Type: BLOOD SPECIMENOrdering Facility: [facility] Address: [address] [place] [address] Performed By: #### 5 7021-8 ####[facility] [id number] [place] [address] [place] Eosinophils (Bld) [#/Vol] 0.13 10*3/uL Normal <0.46 [facility] Comment on above: Order Comment: Speci men Type: BLOOD SPECIMENOrdering Facility: [facility] Address: [address] [place] [address] Performed By: #### 5 7021-8 ####[facility] SIVANCJORGE [id number] [place] [address] [place] Eosinophils/100 WBC (Bld) 1.1 % Normal [facility] Comment on above: Order Comment: Speci men Type: BLOOD SPECIMENOrdering Facility: [facility] Address: [address] [place] [address] Performed By: #### 5 7021-8 ####[facility]ITALNCLIDale [id number] [place] [address] [place] Erythrocyte distribution width (RBC) [Ratio] 13.0 % Normal 11.5-15.0 [facility] Comment on above: Order Comment: Speci men Type: BLOOD SPECIMENOrdering Facility: [facility] Address: [address] [place] [address] Performed By: #### 5 7021-8 ####[facility]ITALNCLIA [id number] [place] [address] [place] Hematocrit (Bld) [Volume fraction] 35.6 % Low 36.0-46.0 [facility] Comment on above: Order Comment: Speci men Type: BLOOD SPECIMENOrdering Facility: [facility] Address: [address] [place] [address] Performed By: #### 5 7021-8 ####[facility]ITALNCLIA [id number] [place] [address] [place] Hemoglobin (Bld) [Mass/Vol] 12.5 g/dL Normal 11.5-15.5 [facility] Comment on above: Order Comment: Speci men Type: BLOOD SPECIMENOrdering Facility: [facility] Address: [address] [place] [address] Performed By: #### 5 7021-8 ####[facility] MILLWNCLIA [id number] [place] [address] [place] Immature granulocytes (Bld) [#/Vol] 0.10 10*3/uL High <0.10 [facility] Comment on above: Order Comment: Speci men Type: BLOOD SPECIMENOrdering Facility: [facility] Address: [address] [place] [address] Performed By: #### 5 7021-8 ####[facility] [id number] [place] [address] [place] Immature granulocytes/100 WBC (Bld) 0.8 % Normal [facility] Comment on above: Order Comment: Speci men Type: BLOOD SPECIMENOrdering Facility: [facility] Address: [address] [place] [address] Performed By: #### 5 7021-8 ####[facility] DORALA [id number] [place] [address] [place] Lymphocytes (Bld) [#/Vol] 2.22 10*3/uL Normal 1.00-4.00 [facility] Comment on above: Order Comment: Speci men Type: BLOOD SPECIMENOrdering Facility: [facility] Address: [address] [place] [address] Performed By: #### 5 7021-8 ####[facility] [id number] [place] [address] [place] Lymphocytes/100 WBC (Bld) 18.4 % Normal [facility] Comment on above: Order Comment: Speci men Type: BLOOD SPECIMENOrdering Facility: [facility] Address: [address] [place] [address] Performed By: #### 5 7021-8 ####[facility]ITALNCLIA [id number] [place] [address] [place] MCH (RBC) [Entitic mass] 29.5 pg Normal 26.0-34.0 [facility] Comment on above: Order Comment: Speci men Type: BLOOD SPECIMENOrdering Facility: [facility] Address: [address] [place] [address] Performed By: #### 5 7021-8 ####[facility] [id number] [place] [address] [place] MCHC (RBC) [Mass/Vol] 35.1 g/dL Normal 30.5-36.0 [facility] Comment on above: Order Comment: Speci men Type: BLOOD SPECIMENOrdering Facility: [facility] Address: [address] [place] [address] Performed By: #### 5 7021-8 ####[facility]ITALNCCAC[facility] [id number] [place] [address] [place] MCV (RBC) [Entitic vol] 84.0 fL Normal 80.0-100.0 [facility] Comment on above: Order Comment: Speci men Type: BLOOD SPECIMENOrdering Facility: [facility] Address: [address] [place] [address] Performed By: #### 5 7021-8 ####[facility]ITALNCCAC[facility] [id number] [place] [address] [place] Monocytes (Bld) [#/Vol] 0.74 10*3/uL Normal <0.87 [facility] Comment on above: Order Comment: Speci men Type: BLOOD SPECIMENOrdering Facility: [facility] Address: [address] [place] [address] Performed By: #### 5 7021-8 ####[facility]ITALNCC[facility] [id number] [address] [place] Monocytes/100 WBC (Bld) 6.1 % Normal [facility] Comment on above: Order Comment: Speci men Type: BLOOD SPECIMENOrdering Facility: [facility] Address: [address] [place] [address] Performed By: #### 5 7021-8 ####[facility] TREMAYNEWHITE HALLCYNTHIALIA [id number] [place] [address] [place] Neutrophils (Bld) [#/Vol] 8.86 10*3/uL High 1.45-7.50 [facility] Comment on above: Order Comment: Speci men Type: BLOOD SPECIMENOrdering Facility: [facility] Address: [address] [place] [address] Performed By: #### 5 7021-8 ####[facility] DORALA [id number] [place] [address] [place] Neutrophils/100 WBC (Bld) 73.4 % Normal [facility] Comment on above: Order Comment: Speci men Type: BLOOD SPECIMENOrdering Facility: [facility] Address: [address] [place] [address] Performed By: #### 5 7021-8 ####[facility] DORALA [id number] [place] [address] [place] Nucleated RBC (Bld) [#/Vol] 10*3/uL Normal <0.01 [facility] Comment on above: Order Comment: Speci men Type: BLOOD SPECIMENOrdering Facility: [facility] Address: [address] [place] [address] Performed By: #### 5 7021-8 ####[facility] [id number] [place] [address] [place] Nucleated RBC/100 WBC (Bld) [Ratio] 0.0 /100 WBC Normal [facility] Comment on above: Order Comment: Speci men Type: BLOOD SPECIMENOrdering Facility: [facility] Address: [address] [place] [address] Performed By: #### 5 7021-8 ####[facility] HOSPITALWNCLIA [id number] [place] [address] [place] Platelet mean volume (Bld) [Entitic vol] 10.4 fL Normal 9.0-12.7 [facility] Comment on above: Order Comment: Speci men Type: BLOOD SPECIMENOrdering Facility: [facility] Address: [address] [place] [address] Performed By: #### 5 7021-8 ####[facility] [id number] [place] [address] [place] Platelets (Bld) [#/Vol] 211 10*3/uL Normal 150-400 [facility] Comment on above: Order Comment: Speci men Type: BLOOD SPECIMENOrdering Facility: [facility] Address: [address] [place] [address] Performed By: #### 5 7021-8 ####[facility] D[facility] [id number] [place] [address] [place] RBC (Bld) [#/Vol] 4.24 10*6/uL Normal 3.90-5.20 [facility] Comment on above: Order Comment: Speci men Type: BLOOD SPECIMENOrdering Facility: [facility] Address: [address] [place] [address] Performed By: #### 5 7021-8 ####[facility]ALL[facility] [id number] [place] [address] [place] WBC (Bld) [#/Vol] 12.07 10*3/uL High 3.70-11.00 [facility] Comment on above: Order Comment: Speci men Type: BLOOD SPECIMENOrdering Facility: [facility] Address: [address] [place] [address] Performed By: #### 5 7021-8 ####[facility] [id number] [place] [id number] [place] Comprehensive metabolic 2000 panelon 06-07-2025 Albumin [Mass/Vol] 3.5 g/dL Low 3.9-4.9 [facility] Comment on above: Order Comment: Speci men Type: BLOOD SPECIMEN [facility] Address: [address] [place] [address] Performed By: #### 2 532-0, 308-1, #### [facility] CLIA [id number] [address] [place] [address] [place] ALP [Catalytic activity/Vol] 86 U/L Normal 34-123 [facility] Comment on above: Order Comment: Speci men Type: BLOOD SPECIMEN [facility] Address: [address] [place] [address] Performed By: #### 2 532-0, 3083-1, #### [facility] CLIA [id number] [address] [place] [address] [place] ALT [Catalytic activity/Vol] 11 U/L Normal 7-38 [facility] Comment on above: Order Comment: Speci men Type: BLOOD SPECIMEN [facility] Address: [address] [place] [address] Performed By: #### 2 532-0, 308-1, #### [facility] CLIA [id number] [address] [place] [address] [place] Anion gap [Moles/Vol] 12 mmol/L Normal 8-15 [facility] Comment on above: Order Comment: Speci men Type: BLOOD SPECIMEN [facility] Address: [address] [place] [address] Performed By: #### 2 532-0, 308-1, 39885-1 #### [facility] CLIA [id number] [address] [place] [address] [place] AST [Catalytic activity/Vol] 12 U/L Low 13-35 [facility] Comment on above: Order Comment: Speci men Type: BLOOD SPECIMEN [facility] Address: [address] [place] [address] Performed By: #### 2 532-0, 1, #### [facility] CLIA [id number] [address] [place] [address] [place] Bilirubin [Mass/Vol] 0.2 mg/dL Normal 0.2-1.3 [facility] Comment on above: Order Comment: Speci men Type: BLOOD SPECIMEN [facility] Address: [address] [place] [address] Performed By: #### 2 532-0, 3083-09, #### [facility] CLIA [id number] [address] [place] [address] [place] Calcium [Mass/Vol] 8.9 mg/dL Normal 8.5-10.2 [facility] Comment on above: Order Comment: Speci men Type: BLOOD SPECIMEN [facility] Address: [address] [place] [address] Performed By: #### 2 532-0, 3083-09, #### [facility] CLIA [id number] [address] [place] [address] [place] Chloride [Moles/Vol] 101 mmol/L Normal 98-107 [facility] Comment on above: Order Comment: Speci men Type: BLOOD SPECIMEN [facility] Address: [address] [place] [address] Performed By: #### 2 532-0, 3083-09, #### [facility] CLIA [id number] [address] [place], [place] [address] [place] CO2 [Moles/Vol] 21 mmol/L Low 22-30 [facility] Comment on above: Order Comment: Speci men Type: BLOOD SPECIMEN [facility] Address: [address] [place] [address] Performed By: #### 2 532-0, 3083-09, #### [facility] CLIA [id number] [address] [place], [place] [address] [place] Creatinine [Mass/Vol] 0.76 mg/dL Normal 0.58-0.96 [facility] Comment on above: Order Comment: Speci men Type: BLOOD SPECIMEN [facility] Address: [address] [place] [address] Performed By: #### 2 532-0, 3083-09, #### [facility] CLIA [id number] [address] [place] [address] [place] eGFRcr SerPlBld CKD-EPI 2020 109 mL/min/1.73m??? Normal >=60 [facility] Comment on above: Order Comment: Speci men Type: BLOOD SPECIMEN [facility] Address: [address] [place] [address] Result Comment: Anila mated Glomerular Filtration Rate (eGFR) is calculated using the 2020 CKD-EPI creatinine equation. This equation utilizes serum creatinine, sex, and age as parameters. The creatinine assay has traceable calibration to isotope dilution-mass spectrometry. Refer to KDIGO guidelines for clinical interpretation. In patients with unstable renal function, e.g. those with acute kidney injury, the eGFR may not accurately reflect actual GFR. Performed By: #### 2 532-0, 1, #### [facility] CLIA [id number] [address] [place] [address] [place] Glucose [Mass/Vol] 112 mg/dL High 74-99 [facility] Comment on above: Order Comment: Speci men Type: BLOOD SPECIMEN [facility] Address: [address] [place] [address] Result Comment: The [place] Diabetes Association (ADA) provides guidance for cutoff values for fasting glucose and random glucose. The ADA defines fasting as no caloric intake for at least 8 hours. Fasting plasma glucose results between 100 to 125 mg/dL indicate increased risk for diabetes (prediabetes). Fasting plasma glucose results greater than or equal to 126 mg/dL meet the criteria for diagnosis of diabetes. In the absence of unequivocal hyperglycemia, results should be confirmed by repeat testing. In a patient with classic symptoms of hyperglycemia or hyperglycemic crisis, random plasma glucose results greater than or equal to 200 mg/dL meet the criteria for diagnosis of diabetes. Reference: Standards of Medical Care in Diabetes 2016, [place] Diabetes Association. Diabetes Care. 2016.39(Suppl 1). Performed By: #### 2 532-0, 3084-1, 02927-1 #### [facility] CLIA [id number] [address] [place] [address] [place] Potassium [Moles/Vol] 3.8 mmol/L Normal 3.7-5.1 [facility] Comment on above: Order Comment: Speci men Type: BLOOD SPECIMEN [facility] Address: [address] [place] [address] Performed By: #### 2 532-0, 3084-1, 92249-5 #### [facility] CLIA [id number] [address] [place] [address] [place] Protein [Mass/Vol] 6.2 g/dL Low 6.3-8.0 [facility] Comment on above: Order Comment: Speci men Type: BLOOD SPECIMEN [facility] Address: [address] [place] [address] Performed By: #### 2 532-0, 3084-1, 30589-8 #### [facility] CLIA [id number] [address] [place] [address] [place] Sodium [Moles/Vol] 134 mmol/L Low 136-144 [facility] Comment on above: Order Comment: Speci men Type: BLOOD SPECIMEN [facility] Address: [address] [place], [place] [address] Performed By: #### 2 532-0, 3084-1, 88890-2 #### [facility] CLIA [id number] [address] [place] [address] [place] Urea nitrogen [Mass/Vol] 8 mg/dL Normal 7-21 [facility] Comment on above: Order Comment: Speci men Type: BLOOD SPECIMEN [facility] Address: [address] [place] [address] Performed By: #### 2 532-0, 3084-1, 60630-9 #### [facility] CLIA [id number] [address] [place] [address] [place] LDH SerPl-cCncon 06-07-2025 LDH [Catalytic activity/Vol] 167 U/L Normal 135-214 [facility] Comment on above: Order Comment: Speci men Type: BLOOD SPECIMEN [facility] Address: [address] [place] [address] Performed By: #### 2 532-0, 3083-1, 06253-4 #### [facility] CLIA [id number] [address] [place] [address] [place] Prot/Creat Uron 06-07-2025 Protein/Creatinine (U) [Mass ratio] 0.08 mg/mg Normal <0.15 [facility] Comment on above: Order Comment: Speci men Type: BLOOD SPECIMEN [facility] Address: [address] [place] [address] Result Comment: Adul t Proteinuria Categories: <0.15 mg/mg is considered normal to mildly increased 0.15 - 0.50 mg/mg is considered moderately increased >0.50 mg/mg is considered severely increased KDIGO. (2013). KDIGO 2012 Clinical Practice Guideline for the Evaluation and Management of Chronic Kidney Disease. Official Journal of the International Society of Nephrology, 3(1), 1-150. Performed By: #### 2 532-0, 3084-1, 37207-8 #### [facility] CLIA [id number] [address] [place], [place] [address] [place] Protein/Creatinine (U) [Mass ratio]on 06-07-2025 Creatinine (U) [Mass/Vol] 156.0 mg/dL Normal 20.0-300.0 [facility] Comment on above: Order Comment: Speci men Type: BLOOD SPECIMEN [facility] Address: [address] [place] [address] Performed By: #### 2 532-0, 3084-1, 98469-9 #### [facility] CLIA [id number] [address] [place] [address] [place] Protein (U) [Mass/Vol] 13 mg/dL Normal 0-20 [facility] Comment on above: Order Comment: Speci men Type: BLOOD SPECIMEN [facility] Address: [address] [place] [address] Performed By: #### 2 532-0, 3084-1, 22256-5 #### [facility] CLIA [id number] [address] [place], [place] [address] [place] Urate SerPl-mCncon 5 Urate [Mass/Vol] 5.3 mg/dL Normal 2.5-6.6 [facility] Comment on above: Order Comment: Speci men Type: BLOOD SPECIMEN [facility] Address: [address] [place] [address] Performed By: #### 2 532-0, 3084-1, 96800-6 #### [facility] CLIA [id number] [address] [place], [place] [address] [place] Examination level ultrasound on 04-11-2025 Indication Detailed anatomic survey, Maternal obesity, BMI >30, History of section, History of gestational diabetes Impression remote read The patient is referred for a detailed anatomic survey. - Single, live, intrauterine . - biometry is consistent with the established gestational age. - No malformations were visualized on a complete detailed anatomic survey. - The amniotic fluid volume is normal amount. - The placenta is posterior, fundal. - The Transabdominal cervical length measures 46 mm with no evidence of funneling or other dynamic changes. - Not all structural malformations can be detected by ultrasound examination. Recommendations Additional follow-up as clinically indicated. Maternal Assessment Height 160 cm Height (ft) 5 ft Height (in) 3 in Physical Exam Initial weight (lb) 192 lb Initial BMI 34.01 kg/m Method Transabdominal ultrasound examination. View: Adequate visualization Langley . Number of fetuses: 1 Dating LMP on: 11/30/2024 GA by LMP 18 w + 6 d ALLEN by LMP: 09/06/2025 GA by prior assessment 18 w + 6 d ALLEN by prior assessment: 09/06/2025 Ultrasound examination on: 04/11/2025 GA by U/S based upon: AC, BPD, Femur, HC GA by U/S 18 w + 2 d ALLEN by U/S: 09/10/2025 Assigned: based on stated ALLEN, selected on 02/28/2025 Assigned GA 18 w + 6 d Assigned ALLEN: 09/06/2025 General Evaluation Cardiac activity present. FHR 147 bpm. movements: present. Presentation: variable Placenta: Placental site: posterior, fundal Umbilical cord: Cord vessels: 3 vessel cord. Insertion site: normal insertion Amniotic fluid: Amount of AF: normal amount. MVP 4.0 cm Growth Overview Exam date GA BPD (mm) HC (mm) AC (mm) FL (mm) HL (mm) EFW (g) 04/11/2025 18w 6d 40.4 25% 150.1 23% 132.6 43% 26.6 34% 26.6 34% 236 20% Biometry Standard BPD 40.4 mm 18w 2d 25% Hadlock OFD 53.7 mm 17w 6d 25% Nicolaides HC 150.1 mm 18w 0d 23% Hipolito Cerebellum tr 18.8 mm 18w 3d 18% Hill Nuchal fold 3.8 mm AC 132.6 mm 18w 5d 43% Hadlock Femur 26.6 mm 18w 1d 34% Hipolito Humerus 26.6 mm 18w 3d 34% Hipolito EFW 236 g 18w 2d 20% Hadlock EFW (lb) 0 lb EFW (oz) 8 oz EFW by: Hadlock (HC-AC-FL) Extended Pantograph Machine Set Up Operator 7.0 mm CM 3.2 mm 8% Nicolaides Nasal bone 7.4 mm Extremities / Bony Struc FL / HC 0.18 51% Hadlock Other Structures FHR 147 bpm Anatomy Cranium: normal Lateral ventricles: normal Choroid plexus: normal Midline falx: normal Cavum septi pellucidi: normal Cerebellum: normal Cisterna magna: normal Head / Neck Vermis: normal Neck: normal Nuchal fold: normal Lips: normal Profile: normal Nose: normal Face Maxilla: normal Mandible: normal Orbits: normal Lens: normal 4-chamber view: normal RVOT view: normal LVOT view: normal 3-vessel view: normal 9-txegsg-utovcxk view: normal Heart / Thorax Situs: situs solitus (normal) Aortic arch view: normal SVC: normal IVC: normal Cardiac axis: normal Rt lung: normal Lt lung: normal Diaphragm: normal Cord insertion: normal Stomach: normal Kidneys: normal Bladder: normal Genitals: normal Abdomen Abdom. wall: normal Cervical spine: normal Thoracic spine: normal Lumbar spine: normal Sacral spine: normal Arms: normal Legs: normal Rt upper arm: normal Rt forearm: normal Rt hand: normal Rt fingers: normal Lt upper arm: normal Lt forearm: normal Lt hand: normal Lt fingers: normal Rt upper leg: normal Rt lower leg: normal Rt foot: normal Lt upper leg: normal Lt lower leg: normal Lt foot: normal sex: male Wants to know sex: yes Maternal Structures Uterus / Cervix Uterus: Visualized Cervix: Visualized Approach: Transabdominal Cervical length 46.0 mm Other: Patient declined transvaginal ultrasound for cervical length. Ovaries / Tubes / Adnexa Rt ovary: Normal Lt ovary: Normal Performed By: Jacey Eldridge RDMS Read By: Michelle Frausto M.D. MATERNAL MEDICINE [facility] Radiology Study observation (narrative) [facility] CBC W Auto Differential pane l (Bld)on 02-28-2025 Basophils (Bld) [#/Vol] 10*3/uL Normal <0.11 [facility] Comment on above: Order Comment: Speci men Type: BLOOD SPECIMEN [facility] Address: [address] [place] [address] Performed By: #### 2 532-0, 3083-09, #### [facility] CLIA [id number] [address] [place] [address] [place] Basophils/100 WBC (Bld) 0.2 % Normal [facility] Comment on above: Order Comment: Speci men Type: BLOOD SPECIMEN [facility] Address: [address] [place] [address] Performed By: #### 2 532-0, 3083-09, #### [facility] CLIA [id number] [address] [place] [address] [place] Differential cell count method Nom (Bld) Auto Normal [facility] Comment on above: Order Comment: Speci men Type: BLOOD SPECIMEN [facility] Address: [address] [place] [address] Performed By: #### 2 532-0, 3083-09, #### [facility] CLIA [id number] [address] [place] [address] [place] Eosinophils (Bld) [#/Vol] 0.07 10*3/uL Normal <0.46 [facility] Comment on above: Order Comment: Speci men Type: BLOOD SPECIMEN [facility] Address: [address] [place] [address] Performed By: #### 2 532-0, 3083-09, #### [facility] CLIA [id number] [address] [place] [address] [place] Eosinophils/100 WBC (Bld) 0.7 % Normal [facility] Comment on above: Order Comment: Speci men Type: BLOOD SPECIMEN [facility] Address: [address] [place] [address] Performed By: #### 2 532-0, 3083-09, #### [facility] CLIA [id number] [address] [place] [address] [place] Erythrocyte distribution width (RBC) [Ratio] 11.9 % Normal 11.5-15.0 [facility] Comment on above: Order Comment: Speci men Type: BLOOD SPECIMEN [facility] Address: [address] [place] [address] Performed By: #### 2 532-0, 3084-1, 60467-5 #### [facility] CLIA [id number] [address] [place] [address] [place] Hematocrit (Bld) [Volume fraction] 44.5 % Normal 36.0-46.0 [facility] Comment on above: Order Comment: Speci men Type: BLOOD SPECIMEN [facility] Address: [address] [place] [address] Performed By: #### 2 532-0, 308-1, #### [facility] CLIA [id number] [address] [place] [address] [place] Hemoglobin (Bld) [Mass/Vol] 15.2 g/dL Normal 11.5-15.5 [facility] Comment on above: Order Comment: Speci men Type: BLOOD SPECIMEN Ordering Facility: [facility] Address: [address] [place] [address] Performed By: #### 2 532-0, 308-1, #### [facility] CLIA [id number] [address] [place] [address] [place] Immature granulocytes (Bld) [#/Vol] 0.03 10*3/uL Normal <0.10 [facility] Comment on above: Order Comment: Speci men Type: BLOOD SPECIMEN Ordering Facility: [facility] Address: [address] [place] [address] Performed By: #### 2 532-0, 308-1, 28196-0 #### [facility] CLIA [id number] [address] [place] [address] [place] Immature granulocytes/100 WBC (Bld) 0.3 % Normal [facility] Comment on above: Order Comment: Speci men Type: BLOOD SPECIMEN Ordering Facility: [facility] Address: [address] [place] [address] Performed By: #### 2 532-0, 3083-1, #### [facility] CLIA [id number] [address] [place] [address] [place] Lymphocytes (Bld) [#/Vol] 1.95 10*3/uL Normal 1.00-4.00 [facility] Comment on above: Order Comment: Speci men Type: BLOOD SPECIMEN Ordering Facility: [facility] Address: [address] [place] [address] Performed By: #### 2 532-0, 3083-09, #### [facility] CLIA [id number] [address] [place] [address] STATES OF [facility] Lymphocytes/100 WBC (Bld) 20.2 % Normal [facility] Comment on above: Order Comment: Speci men Type: BLOOD SPECIMEN Ordering Facility: [facility] Address: [address] [place] [address] Performed By: #### 2 532-0, 3083-09, #### [facility] CLIA [id number] [address] [place] [address] [place] MCH (RBC) [Entitic mass] 28.7 pg Normal 26.0-34.0 [facility] Comment on above: Order Comment: Speci men Type: BLOOD SPECIMEN Ordering Facility: [facility] Address: [address] [place] [address] Performed By: #### 2 532-0, 1, #### [facility] CLIA [id number] [address] [place] [address] [place] MCHC (RBC) [Mass/Vol] 34.2 g/dL Normal 30.5-36.0 [facility] Comment on above: Order Comment: Speci men Type: BLOOD SPECIMEN Ordering Facility: [facility] Address: [address] [place] [address] Performed By: #### 2 532-0, 3083-09, #### [facility] CLIA [id number] [address] [place] [address] [place] MCV (RBC) [Entitic vol] 84.0 fL Normal 80.0-100.0 [facility] Comment on above: Order Comment: Speci men Type: BLOOD SPECIMEN Ordering Facility: [facility] Address: [address] [place] [address] Performed By: #### 2 532-0, 3083-09, #### [facility] CLIA [id number] [address] [place] [address] [place] Monocytes (Bld) [#/Vol] 0.51 10*3/uL Normal <0.87 [facility] Comment on above: Order Comment: Speci men Type: BLOOD SPECIMEN Ordering Facility: [facility] Address: [address] [place] [address] Performed By: #### 2 532-0, 3083-09, #### [facility] CLIA [id number] [address] [place] [address] [place] Monocytes/100 WBC (Bld) 5.3 % Normal [facility] Comment on above: Order Comment: Speci men Type: BLOOD SPECIMEN Ordering Facility: [facility] Address: [address] [place] [address] Performed By: #### 2 532-0, 3083-09, #### [facility] CLIA [id number] [address] [place] [address] [place] Neutrophils (Bld) [#/Vol] 7.09 10*3/uL Normal 1.45-7.50 [facility] Comment on above: Order Comment: Speci men Type: BLOOD SPECIMEN Ordering Facility: [facility] Address: [address] [place] [address] Performed By: #### 2 532-0, 3083-09, #### [facility] CLIA [id number] [address] [place] [address] [place] Neutrophils/100 WBC (Bld) 73.3 % Normal [facility] Comment on above: Order Comment: Speci men Type: BLOOD SPECIMEN Ordering Facility: [facility] Address: [address] [place] [address] Performed By: #### 2 532-0, 3083-09, #### [facility] CLIA [id number] [address] [place] [address] [place] Nucleated RBC (Bld) [#/Vol] 10*3/uL Normal <0.01 [facility] Comment on above: Order Comment: Speci men Type: BLOOD SPECIMEN Ordering Facility: [facility] Address: [address] [place] [address] Performed By: #### 2 532-0, 3083-09, #### [facility] CLIA [id number] [address] [place] [address] [place] Nucleated RBC/100 WBC (Bld) [Ratio] 0.0 /100 WBC Normal [facility] Comment on above: Order Comment: Speci men Type: BLOOD SPECIMEN Ordering Facility: [facility] Address: [address] [place] [address] Performed By: #### 2 532-0, 3083-09, #### [facility] CLIA [id number] [address] [place] [address] [place] Platelet mean volume (Bld) [Entitic vol] 10.5 fL Normal 9.0-12.7 [facility] Comment on above: Order Comment: Speci men Type: BLOOD SPECIMEN Ordering Facility: [facility] Address: [address] [place] [address] Performed By: #### 2 532-0, 3084-1, 68833-9 #### [facility] CLIA [id number] [address] [place] [address] [place] Platelets (Bld) [#/Vol] 220 10*3/uL Normal 150-400 [facility] Comment on above: Order Comment: Speci men Type: BLOOD SPECIMEN Ordering Facility: [facility] Address: [address] [place] [address] Performed By: #### 2 532-0, 3084-1, 70215-7 #### [facility] CLIA [id number] [address] [place] [address] [place] RBC (Bld) [#/Vol] 5.30 10*6/uL High 3.90-5.20 [facility] Comment on above: Order Comment: Speci men Type: BLOOD SPECIMEN Ordering Facility: [facility] Address: [address] [place] [address] Performed By: #### 2 532-0, 3084-1, 75116-0 #### [facility] CLIA [id number] [address] [place] [address] [place] WBC (Bld) [#/Vol] 9.67 10*3/uL Normal 3.70-11.00 [facility] Comment on above: Order Comment: Speci men Type: BLOOD SPECIMEN Ordering Facility: [facility] Address: [address] [place] [address] Performed By: #### 2 532-0, 3084-1, 91455-4 #### [facility] CLIA [id number] [address] [place] [address] [place] Comprehensive metabolic 2000 panelon 02-28-2025 Albumin [Mass/Vol] 4.2 g/dL Normal 3.9-4.9 [facility] Comment on above: Order Comment: Speci men Type: BLOOD SPECIMENOrdering Facility: [facility] Address: [address] [place] [address] Performed By: #### 2 4323-8 ####[facility] SONIA MILLTOWNCLIA [id number] [place] [address] [place] ALP [Catalytic activity/Vol] 78 U/L Normal 34-123 [facility] Comment on above: Order Comment: Speci men Type: BLOOD SPECIMENOrdering Facility: [facility] Address: [address] [place] [address] Performed By: #### 2 4323-8 ####[facility] MILLTOWNCLIA [id number] [place] [address] [place] ALT [Catalytic activity/Vol] 8 U/L Normal 7-38 [facility] Comment on above: Order Comment: Speci men Type: BLOOD SPECIMENOrdering Facility: [facility] Address: [address] [place] [address] Performed By: #### 2 4323-8 ####[facility] [id number] [place] [address] [place] Anion gap [Moles/Vol] 15 mmol/L Normal 8-15 [facility] Comment on above: Order Comment: Speci men Type: BLOOD SPECIMENOrdering Facility: [facility] Address: [address] [place] [address] Performed By: #### 2 4323-8 ####[facility] MILLTOWNCLIA [id number] [place] [address] [place] AST [Catalytic activity/Vol] 11 U/L Low 13-35 [facility] Comment on above: Order Comment: Speci men Type: BLOOD SPECIMENOrdering Facility: [facility] Address: [address] [place] [address] Performed By: #### 2 4323-8 ####[facility] SONIA MILLTOWNCLIA [id number] [place] [address] [place] Bilirubin [Mass/Vol] 0.3 mg/dL Normal 0.2-1.3 [facility] Comment on above: Order Comment: Speci men Type: BLOOD SPECIMENOrdering Facility: [facility] Address: [address] [place] [address] Performed By: #### 2 4323-8 ####[facility] MILLTOWNCLIA [id number] [place] [address] [place] Calcium [Mass/Vol] 9.6 mg/dL Normal 8.5-10.2 [facility] Comment on above: Order Comment: Speci men Type: BLOOD SPECIMENOrdering Facility: [facility] Address: [address] [place] [address] Performed By: #### 2 4323-8 ####[facility] MILLWNCLIA [id number] [place] [address] [place] Chloride [Moles/Vol] 102 mmol/L Normal 98-107 [facility] Comment on above: Order Comment: Speci men Type: BLOOD SPECIMENOrdering Facility: [facility] Address: [address] [place] [address] Performed By: #### 2 4323-8 ####[facility] MILLTOWNCLIA [id number] [place] [address] [place] CO2 [Moles/Vol] 19 mmol/L Low 22-30 [facility] Comment on above: Order Comment: Speci men Type: BLOOD SPECIMENOrdering Facility: [facility] Address: [address] [place] [address] Performed By: #### 2 4323-8 ####[facility] MILLTOWNCLIA [id number] [place] [address] [place] Creatinine [Mass/Vol] 0.69 mg/dL Normal 0.58-0.96 [facility] Comment on above: Order Comment: Jasmyne plasencia Type: BLOOD SPECIMENOrdering Facility: [facility] Address: [address] [place] [address] Performed By: #### 2 4323-8 ####[facility] [id number] [place] [address] [place] Creatinine and Glomerular filtration rate.predicted panel (S/P/Bld) 121 mL/min/1.73m??? Normal >=60 [facility] Comment on above: Order Comment: Jasmyne plasencia Type: BLOOD SPECIMENOrdering Facility: [facility] Address: [address] [place] [address] Result Comment: Anila mated Glomerular Filtration Rate (eGFR) is calculated using the 2020 CKD-EPI creatinine equation. This equation utilizes serum creatinine, sex, and age as parameters. The creatinine assay has traceable calibration to isotope dilution-mass spectrometry. Refer to KDIGO guidelines for clinical interpretation. In patients with unstable renal function, e.g. those with acute kidney injury, the eGFR may not accurately reflect actual GFR. Performed By: #### 2 4323-8 ####[facility] [id number] [place] [address] [place] Glucose [Mass/Vol] 94 mg/dL Normal 74-99 [facility] Comment on above: Order Comment: Jasmyne plasencia Type: BLOOD SPECIMENOrdering Facility: [facility] Address: [address] [place] [address] Result Comment: The [place] Diabetes Association (ADA) provides guidance for cutoff values for fasting glucose and random glucose. The ADA defines fasting as no caloric intake for at least 8 hours. Fasting plasma glucose results between 100 to 125 mg/dL indicate increased risk for diabetes (prediabetes). Fasting plasma glucose results greater than or equal to 126 mg/dL meet the criteria for diagnosis of diabetes. In the absence of unequivocal hyperglycemia, results should be confirmed by repeat testing. In a patient with classic symptoms of hyperglycemia or hyperglycemic crisis, random plasma glucose results greater than or equal to 200 mg/dL meet the criteria for diagnosis of diabetes. Reference: Standards of Medical Care in Diabetes 2016, [place] Diabetes Association. Diabetes Care. 2016.39(Suppl 1). Performed By: #### 2 4323-8 ####[facility] SONIA MILLWILLIAMWNCLIA [id number] [place] [address] [place] Potassium [Moles/Vol] 4.1 mmol/L Normal 3.7-5.1 [facility] Comment on above: Order Comment: Speci men Type: BLOOD SPECIMENOrdering Facility: [facility] Address: [address] [place] [address] Performed By: #### 2 4323-8 ####[facility]ITALWCYNTHIALIA [id number] [place] [address] [place] Protein [Mass/Vol] 7.2 g/dL Normal 6.3-8.0 [facility] Comment on above: Order Comment: Speci men Type: BLOOD SPECIMENOrdering Facility: [facility] Address: [address] [place] [address] Performed By: #### 2 4323-8 ####[facility] [id number] [place] [address] [place] Sodium [Moles/Vol] 136 mmol/L Normal 136-144 [facility] Comment on above: Order Comment: Speci men Type: BLOOD SPECIMENOrdering Facility: [facility] Address: [address] [place] [address] Performed By: #### 2 4323-8 ####[facility] MILLTOWNCLIA [id number] [place] [address] [place] Urea nitrogen [Mass/Vol] 8 mg/dL Normal 7-21 [facility] Comment on above: Order Comment: Speci men Type: BLOOD SPECIMENOrdering Facility: [facility] Address: [address] [place] [address] Performed By: #### 2 4323-8 ####[facility] MILLWNCLIA [id number] [place] [address] [place] Examination level ultrasound on 02-28-2025 Indication First trimester anatomic survey Maternal obesity, BMI >30 Impression The patient is referred for a first trimester anatomy scan including nuchal translucency measurement as clinically indicated. - Single, live, intrauterine . - [place] rump length measurement is consistent with the established gestational age. - A qualitative screen of the nuchal translucency and other anatomic structures was unremarkable on a complete first trimester anatomic assessment. - Not all structural malformations can be detected by ultrasound examination. Maternal Structures: Right Ovary: Size 36 mm x 22 mm x 19 mm Left Ovary: Size 25 mm x 21 mm x 15 mm Recommendations - A standard anatomic survey at 16 weeks can be offered and a detailed exam at 20 weeks is recommended for increased risk. Maternal Assessment Height 160 cm Height (ft) 5 ft Height (in) 3 in Physical Exam Initial weight (lb) 192 lb Initial BMI 34.01 kg/m Maternal assessment other: 3 Para 1 REMOTE READ Method Transabdominal ultrasound examination [place] . Number of fetuses: 1 Dating LMP on: 11/30/2024 GA by LMP 12 w + 6 d ALLEN by LMP: 09/06/2025 GA by prior assessment 12 w + 6 d ALLEN by prior assessment: 09/06/2025 Ultrasound examination on: 02/28/2025 GA by U/S based upon: CRL GA by U/S 12 w + 2 d ALLEN by U/S: 09/10/2025 Assigned: based on stated ALLEN, selected on 02/28/2025 Assigned GA 12 w + 6 d Assigned ALLEN: 09/06/2025 General Evaluation Cardiac activity present Placenta: posterior Cord vessels: 3 vessel cord Amniotic fluid: normal amount Biometry Standard FHR 160 bpm CRL 57.1 mm 12w 2d 8% [place] First Trimester Anatomy Calvarium: normal Falx cerebri: normal Choroid plexus: normal Profile: normal Nasal bone: normal Retronasal triangle: normal Maxilla: normal Mandible: normal Nuchal translucency: Unremarkable Situs: normal Cardiac position: normal Cardiac axis: normal 4-chamber view: normal 4-chamber view with color: normal 4-tjdkuz-zeqizqa view: normal Abdominal cord insertion: normal Stomach: normal Kidneys: normal Bladder: normal Color doppler of perivesical umbilical arteries: normal Vertebral alignment: normal Arms: normal Hands: normal Legs: normal Feet: normal Maternal Structures Uterus / Cervix Uterus: Visualized Uterus length 155 mm Uterus width 104 mm Uterus height 69 mm Uterus Vol 581.4 cm Ovaries / Tubes / Adnexa Rt ovary: Visualized Rt ovary D1 36 mm Rt ovary D2 22 mm Rt ovary D3 19 mm Rt ovary Vol 7.5 cm Lt ovary: Visualized Lt ovary D1 25 mm Lt ovary D2 21 mm Lt ovary D3 15 mm Lt ovary Vol 4.2 cm Performed By: Tiffanie Macedo RDMS, RVT Read By: Michelle Frausto M.D. MATERNAL MEDICINE [facility] Radiology Study observation (narrative) [facility] HBV surface Ag Ser Qlon HBV surface Ag Ql (S) Negative Normal Negative [facility] Comment on above: Order Comment: Speci men Type: BLOOD SPECIMENOrdering Facility: [facility] Address: [address] [place] [address] Performed By: #### 7 3752-8, 5195-3, 98765-7 ####[facility] [id number] [place] [address] [place] HCV Ab Ser Qlon 02-28-2025 HCV Ab Ql (S) Negative Normal Negative [facility] Comment on above: Order Comment: Speci men Type: SWAB [facility]ing [facility] Address: [address] [place] [address] Result Comment: The result suggests no evidence of infection with Hepatitis C virus. Should recent infection be suspected, repeat testing may be considered 4-6 weeks after this draw. Performed By: #### 3 6902-5, TRVAMP #### [facility] CLIA [id number] [address] [place] [address] [place] HIV 1+2 Ab IA Qlon HIV 1 and 2 Ab IA.rapid Nom (S/P/Bld) Normal [facility] Comment on above: Order Comment: Speci men Type: BLOOD SPECIMENOrdering Facility: [facility] Address: [address] [place] [address] Result Comment: Test not indicated. Performed By: #### 7 3752-8, 5195-3, 43729-1 ####[facility] [id number] [place] [address] [place] HIV 1+2 Ab+HIV1 p24 Ag IA Ql Non-Reactive Normal Nonreactive [facility] Comment on above: Order Comment: Speci men Type: BLOOD SPECIMENOrdering Facility: [facility] Address: [address] [place] [address] Performed By: #### 7 3752-8, 5195-3, 96726-8 ####[facility] [id number] [place] [address] [place] HIV immunoassay testing algorithm interpretation (S/P/Bld) [Interp] Normal [facility] Comment on above: Order Comment: Speci men Type: BLOOD SPECIMENOrdering Facility: [facility] Address: [address] [place] [address] Result Comment: No e vidence of HIV-1 or HIV-2 infection. Should recent infection be suspected, repeat testing may be considered 2-3 weeks after this draw. [place] Rev. Code 3701.243(E): This information has been disclosed to you from confidential records protected from disclosure by state law. You shall make no further disclosure of this information without the specific, written, and informed release of the individual to whom it pertains or as otherwise permitted by state law. A general authorization for the release of medical or other information is not sufficient for the purpose of the release of HIV test results or diagnoses. Performed By: #### 7 3752-8, 5195-3, 76676-2 ####[facility] [id number] [place] [address] [place] HbA1c (Bld)on 02-28-2025 Average glucose Estimated from glycated hemoglobin (Bld) [Mass/Vol] 103 mg/dL Normal [facility] Comment on above: Order Comment: Speci men Type: BLOOD SPECIMEN Ordering Facility: [facility] Address: [address] [place] [address] Result Comment: eAG: (Estimated average glucose) is a calculated value from HgbA1c and is bilingual call center representative of the average blood glucose level in the last 2-3 month period. Performed By: #### 2 532-0, 3083-, #### [facility] CLIA [id number] [address] [place] [address] [place] HbA1c (Bld) [Mass fraction] 5.2 % Normal 4.3-5.6 [facility] Comment on above: Order Comment: Speci men Type: BLOOD SPECIMEN Ordering Facility: [facility] Address: [address] [place] [address] Result Comment: [place] Diabetes Association guidelines indicate that patients with HgbA1c in the range 5.7-6.4% are at increased risk for development of diabetes, and intervention by lifestyle modification may be beneficial. HgbA1c greater or equal to 6.5% is considered diagnostic of diabetes. Performed By: #### 2 532-0, 3083-09, #### [facility] CLIA [id number] [address] [place] [address] [place] [id number] PLUSon 02-28-2025 Cell-free DNA./Cell-free DNA.total Dosage of chromosome-specific cfDNA (cfDNA) [Molar fraction] 15% Normal [facility] Comment on above: Order Comment: Speci men Type: SWAB Ordering Facility: [facility] Address: [address] [place] [address] Performed By: #### 3 6902-5, TRVAMP #### [facility] CLIA [id number] [address] [place] [address] [place] Chr 13+18+21+X+Y aneuploidy Dosage of chromosome-specific cfDNA Ql (cfDNA) Negative Normal [facility] Comment on above: Order Comment: Speci men Type: SWAB Ordering Facility: [facility] Address: [address] [place] [address] Performed By: #### 3 6902-5, TRVAMP #### [facility] CLIA [id number] [address] [place] [address] [place] Chr 21 trisomy Dosage of chromosome-specific cfDNA Ql (cfDNA) Negative Normal [facility] Comment on above: Order Comment: Speci men Type: SWAB Ordering Facility: [facility] Address: [address] [place] [address] Performed By: #### 3 6902-5, TRVAMP #### [facility] CLIA [id number] [address] [place] [address] [place] Chr X and Y aneuploidy risk Sequencing Ql (cfDNA) [Interp] Not detected Normal [facility] Comment on above: Order Comment: Speci men Type: SWAB [facility]ing Facility: [facility] Address: [address] [place] [address] Result Comment: Not Detected Not Detected Performed By: #### 3 6902-5, TRVAMP #### [facility] CLIA [id number] [address] [place] [address] [place] Citation [place] (Reference lab test) Comment Normal [facility] Comment on above: Order Comment: Speci men Type: SWAB [facility] Facility: [facility] Address: [address] [place] [address] Result Comment: 1. P sofia GOODMAN, et al. Dede Med. 2012;14(3):296-305. 2. Tawnya LOREDO et al. Prenat Diag. 2013;33(6):591-597. 3. Basil C, et al. Clin Chem. 2015 Apr;61(4):608-616. 4. Ino GOODMAN, et al. Dede Med. 2011;13(11):913-920. 5. ACOG/SMFM Practice Bulletin No. 226, Jun 2020. Performed By: #### 3 6902-5, TRVAMP #### [facility] CLIA [id number] [address] [id number] [address] [place] Gestational age Estimated from conception date [place] Normal [facility] Comment on above: Order Comment: Speci men Type: SWAB [facility]ing Facility: [facility] Address: [address] [place] [address] Performed By: #### 3 6902-5, TRVAJEFF #### [facility] CLIA [id number] [address] [place] [address] [place] GESTATIONALAGE AGE > OR = 9W Yes Normal [facility] Comment on above: Order Comment: Speci men Type: SWAB [facility]ing Facility: [facility] Address: [address] [place] [address] Performed By: #### 3 6902-5, TRVAMP #### [facility] CLIA [id number] [address] [place] [address] OF [place] Laboratory comment [place] (Report) Comment Normal [facility] Comment on above: Order Comment: Speci men Type: SWAB Ordering Facility: [facility] Address: [address] [place] [address] Result Comment: The MaterniT(R) 21 PLUS laboratory-developed test (LDT) analyzes circulating cell-free DNA from a maternal blood sample. This test is used for screening purposes and not diagnostic. Clinical correlation is recommended. Validation data on twin pregnancies is limited and the ability of this test to detect aneuploidy in higher multiple gestations has not yet been validated. Performed By: #### 3 6902-5, SAURABH #### [facility] CLIA [id number] [address] [place] [address] employment services director name Nom (Provider) Comment Normal [facility] Comment on above: Order Comment: Speci men Type: SWAB Ordering Facility: [facility] Address: [address] [place] [address] Result Comment: This specimen showed an expected representation of chromosome 21, 18 and 13 material. Clinical correlation is suggested. Comment Cedrick Trujillo MD, PhD, Director, Simple [employer]he Performed By: #### 3 6902-5, TRLATOSHA #### [facility] CLIA [id number] [address] [place] [address] [place] [address] [place] LIMITATIONS OF THE TEST Comment Normal [facility] Comment on above: Order Comment: Speci men Type: SWAB Ordering Facility: [facility] Address: [address] [place] [address] [place] [address] Result Comment: Eren paul the results of these tests are highly reliable, discordant results, including inaccurate sex prediction, may occur due to placental, maternal, or mosaicism or neoplasm; vanishing twin; prior maternal organ transplant; or other causes. These tests are screening tests and not diagnostic; they do not replace the accuracy and precision of diagnosis with CVS or amniocentesis. A patient with a positive test result should be referred for genetic counseling and offered invasive diagnosis for confirmation of test results.[5] The results of this testing, including the benefits and limitations, should be discussed with a qualified healthcare provider. management decisions, including termination of the , should not be based on the results of these tests alone. The healthcare provider is responsible for the use of this information in the management of their patient. Sex chromosomal aneuploidies are not reportable for known multiple gestations. A negative result does not ensure an unaffected nor does it exclude the possibility of other chromosomal abnormalities or defects which are not a part of these tests. An uninformative result may be reported, the causes of which may include, but are not limited to, insufficient sequencing coverage, noise or artifacts in the region, amplification or sequencing bias, or insufficient fraction. These tests are not intended to identify pregnancies at risk for neural tube defects or ventral wall defects. Testing for whole chromosome abnormalities (including sex chromosomes) and for subchromosomal abnormalities could lead to the potential discovery of both and maternal genomic abnormalities that could have major, minor, or no, clinical significance. Evaluating the significance of a positive or a non-reportable result may involve both invasive testing and additional studies on the mother. Such investigations may lead to a diagnosis of maternal chromosomal or subchromosomal abnormalities, which on occasion may be associated with benign or malignant maternal neoplasms. These tests may not accurately identify triploidy, balanced rearrangements, or the precise location of subchromosomal duplications or deletions; these may be detected by diagnosis with CVS or amniocentesis. The ability to report results may be impacted by maternal BMI, maternal weight, maternal systemic lupus erythematosus (SLE) and/or by certain pharmaceutical agents such as low molecular weight heparin (for example: Lovenox(R), Xaparin(R), Clexane(R) and Fragmin(R)). Performed By: #### 3 6902-5, SAURABH #### [facility] CLIA [id number] [address] [place] [address] Monosomy X risk Dosage of chromosome-specific cfDNA Ql (Plasma cell-free+WBC DNA) [Interp] Not detected Normal [facility] Comment on above: Order Comment: Specla men Type: SWAB Ordering Facility: [facility] Address: [address] [place] [address] Performed By: #### 3 6902-5, SAURABH #### [facility] CLIA [id number] [address] [place] [address] NEGATIVE PREDICTIVE VALUE Note Normal [facility] Comment on above: Order Comment: Specla plasencia Type: SWAB Ordering Facility: [facility] Address: [address] [place] [address] Result Comment: The Negative Predictive Value (NPV) for trisomy 21, 18, and 13 is greater than 99%. The NPV for SCA and ESS cannot be calculated as SCA and ESS are only reported when an abnormality is detected. Performed By: #### 3 6902-5, SAURABH #### [facility] CLIA [id number] [address] [place] [address] PERFORMANCE CHARACTERISTICS Note Normal [facility] Comment on above: Order Comment: Jasmyne plasencia Type: SWAB Ordering Facility: [facility] Address: [address] [place] [address] Result Comment: ! Sex ! Accuracy: 99.4% ! ! ! ! Region (associated syndrome) ! Est. Sens# ! Est. Spec ! ! ! ! Trisomy 21 (Down Syndrome) ! 99.1% ! 99.9% ! ! ! ! Trisomy 18 (Ly Syndrome) ! >99.9% ! 99.6% ! ! ! ! Trisomy 13 (Patau Syndrome) ! 91.7% ! 99.7% ! ! ! ! Sex Chromosome Aneuploidies## ! 96.2% ! 99.7% ! ! ! * As reported in [facility] database nstd37 [https://www.ncbi.nlm.nih.gov/dbvar/studies/nstd37/ ] # Estimated Sensitivity. Sensitivity estimated across the observed size distribution of each syndrome [per ISCA database nstd37] and across the range of fractions observed in routine clinical NIPT. Actual sensitivity can also be influenced by other factors such as the size of the event, total sequence counts, amplification bias, or sequence bias. ## Langley gestation only. Performed By: #### 3 6902-5, SAURABH #### [facility] CLIA [id number] [address] [place] [address] [place] POSITIVE PREDICTIVE VALUE N/A Normal [facility] Comment on above: Order Comment: Speci men Type: SWAB Ordering Facility: [facility] Address: [address] [place] [address] Performed By: #### 3 6902-5, SAURABH #### [facility] CLIA [id number] [address] [place] [address] [place] Reference Lab Test Method Comment Normal [facility] Comment on above: Order Comment: Speci men Type: SWAB Ordering Facility: [facility] Address: [address] [place] [address] Result Comment: See Notes Circulating cell-free DNA was purified from the plasma component of maternal blood. The extracted DNA was then converted into a genomic DNA library for aneuploidy analysis of chromosomes 21, 18, and 13 via next generation sequencing.[1] Optional findings based on the test order include sex chromosome aneuploidy (SCA)[2], and enhanced sequencing series (ESS)[3], which will only be reported on as an additional finding when an abnormality is detected. SCA testing includes information on X and Y representation, while ESS testing includes deletions in selected regions (22q, 15q, 11q, 8q, 5p, 4p, 1p) and trisomy of chromosomes 16 and 22. Performed By: #### 3 6902-5, SAURABH #### [facility] CLIA [id number] [address] [place], [place] [address] [place] Service comment (Unsp spec) [Interp] Comment Normal [facility] Comment on above: Order Comment: Speci men Type: SWAB Ordering Facility: [facility] Address: [address] [place] [address] Result Comment: See Notes [employer] is a subsidiary of [employer], using the brand [employer]. This test was developed and its performance characteristics determined by [employer]. It has not been cleared or approved by the Food and Drug Administration. This laboratory is certified under the Clinical Laboratory Improvement Amendments (CLIA) as qualified to perform high complexity clinical laboratory testing and accredited by the College of [place] Pathologists (CAP). If there is future clinical need for adding MaterniT GENOME testing, this specimen will be available until term. [facility] samples will not be retained beyond 60 days. [facility] patients will have to send a new sample for re-sequencing ([facility] Test Code: 665304). Performed By: #### 3 6902-5, SAURABH #### [facility] CLIA [id number] [address] [place] [address] [place] Sex Dosage of chromosome-specific cfDNA Nom (cfDNA) Comment Normal [facility] Comment on above: Order Comment: Speci men Type: SWAB Ordering Facility: [facility] Address: [address] [place] [address] Result Comment: Cons istent with Male Performed By: #### 3 6902-5, SAURABH #### [facility] CLIA [id number] [address] [place] [address] [place] Test performance information Carson (Unsp spec) Comment Normal [facility] Comment on above: Order Comment: Speci men Type: SWAB Ordering Facility: [facility] Address: [address] [place] [address] Result Comment: The performance characteristics of the MaterniT(R) 21 PLUS laboratory-developed test (LDT) have been determined in a clinical validation study with women at increased risk for chromosomal aneuploidy.[1-4] Performed By: #### 3 6902-5, SAURABH #### [facility] CLIA [id number] [address] [place], [place] [address] [place] Trisomy 13 risk Dosage of chromosome-specific cfDNA Ql (cfDNA) [Interp] Negative Normal [facility] Comment on above: Order Comment: Speci men Type: SWAB Ordering Facility: [facility] Address: [address] [place] [address] Performed By: #### 3 6902-5, TRVAJEFF #### [facility] CLIA [id number] [address] [place] [address] [place] Trisomy 18 risk Dosage of chromosome-specific cfDNA Ql (Plasma cell-free+WBC DNA) [Interp] Negative Normal [facility] Comment on above: Order Comment: Speci men Type: SWAB Ordering Facility: [facility] Address: [address] [place] [address] Performed By: #### 3 6902-5, TENNILLEVAJEFF #### [facility] CLIA [id number] [address] [place] [address] [place] Prot/Creat Uron 02-28-2025 Protein/Creatinine (U) [Mass ratio] 0.07 mg/mg Normal <0.15 [facility] Comment on above: Order Comment: Speci men Type: URINE SPECIMENOrdering Facility: [facility] Address: [address] [place] [address] Result Comment: Adul t Proteinuria Categories: <0.15 mg/mg is considered normal to mildly increased 0.15 - 0.50 mg/mg is considered moderately increased >0.50 mg/mg is considered severely increased KDIGO. (2013). KDIGO 2012 Clinical Practice Guideline for the Evaluation and Management of Chronic Kidney Disease. Official Journal of the International Society of Nephrology, 3(1), 1-150. Performed By: #### 2 890-2 ####[facility] [id number] [place] [address] [place] Protein/Creatinine (U) [Mass ratio]on 02-28-2025 Creatinine (U) [Mass/Vol] 272.1 mg/dL Normal 20.0-300.0 [facility] Comment on above: Order Comment: Speci men Type: URINE SPECIMENOrdering Facility: [facility] Address: [address] [place], [place] [address] Performed By: #### 2 890-2 ####[facility] [id number] [place] [address] [place] Protein (U) [Mass/Vol] 18 mg/dL Normal 0-20 [facility] Comment on above: Order Comment: Speci men Type: URINE SPECIMENOrdering Facility: [facility] Address: [address] [place] [address] Performed By: #### 2 890-2 ####[facility] [id number] [place] [address] [place] RUBELLA IGG ANTIBODYon 02-28 RUBELLA IGG AB, QUAL Positive Normal Positive [facility] Comment on above: Order Comment: Speci men Type: BLOOD SPECIMENOrdering Facility: [facility] Address: [address] [place] [address] Result Comment: The result suggests recent or past exposure to Rubella virus or history of Rubella vaccination. Positive result may also be seen due to presence of passively-transferred antibodies. Please correlate with patient's history. Performed By: #### R UBIGG ####[facility] [id number] [place] [address] [place] Reagin and Treponema pallidu m IgG and IgM [Interp]on 02-28-2025 T. pallidum IgG+IgM IA Ql (S) Non-Reactive Normal Nonreactive [facility] Comment on above: Order Comment: Speci men Type: BLOOD SPECIMENOrdering Facility: [facility] Address: [address] [place] [address] Performed By: #### 7 3752-8, 5195-3, 65381-4 ####[facility] [id number] [place] [address] [place] Reagin+T pallidum IgG+IgM Se rPl-Impon 02-28-2025 Reagin and Treponema pallidum IgG and IgM [Interp] Cannot exclude recent Treponemal infection if specimen collected within 7-10 days after appearance of suspect lesions or 2-3 weeks after an exposure. Clinical correlation is required. Normal [facility] Comment on above: Order Comment: Speci men Type: BLOOD SPECIMENOrdering Facility: [facility] Address: [address] [place] [address] Performed By: #### 7 3752-8, 5195-3, 03506-7 ####[facility] [id number] [place] [address] [place] TSH SerPl-aCncon 02-28-2025 TSH Qn 0.180 m[IU]/L Low 0.270-4.200 [facility] Comment on above: Order Comment: Specla plasencia Type: BLOOD SPECIMEN Ordering Facility: [facility] Address: [address] [place] [address] Result Comment: If t he patient is , TSH reference range varies by gestational period: First Trimester (weeks 9-12): 0.180-2.990 mIU/L Second Trimester: 0.110-3.980 mIU/L Third Trimester: 0.480-4.710 mIU/L Romeo Sun et al. A Practical Approach for the Verifications and Determination of Site- and Trimester-Specific Reference Intervals for Thyroid Function tests in . Thyroid, 2019:29:3:412-420. Unruly E, et al. 2017 Guidelines of the [place] Thyroid Association for the Diagnosis and Management of Thyroid Disease during and the . Thyroid, 2017:27:3:315-389. Performed By: #### 2 532-0, 3084-1, 05897-4 #### [facility] CLIA [id number] [address] [place] [address] [place] TYPE + SCREEN PRENATALon ABO O Normal [facility] Comment on above: Order Comment: Speci luis angel Type: BLOOD SPECIMEN Ordering Facility: [facility] Address: [address] [place] [address] Performed By: #### 2 532-0, 3084-1, 08500-5 #### [facility] CLIA [id number] [address] [place] [address] [place] Rh Nom (Bld) Positive Normal [facility] Comment on above: Order Comment: Speci men Type: BLOOD SPECIMEN Ordering Facility: [facility] Address: [address] [place] [address] Performed By: #### 2 532-0, 3084-1, 13098-3 #### [facility] CLIA [id number] [address] [place] [address] [place] TYPE AND SCREEN EXPIRATION 03/03/2025 23:59 Normal [facility] Comment on above: Order Comment: Speci men Type: BLOOD SPECIMEN Ordering Facility: [facility] Address: [address] [place] [address] Performed By: #### 2 532-0, 3084-1, 87994-4 #### [facility] CLIA [id number] [address] [place] [address] [place] Bacteria Ur Culton Bacteria identified Cx Nom (U) ORGANISM ID: 1 50,000-<100,000 CFU/ml Normal urogenital jose Normal [facility] Comment on above: Performed By: #### 2 532-0, 3084-1, 07840-4 #### [facility] CLIA [id number] [address] [place] [address] [place] C. trachomatis+N. gonorrhoea e DNA ALVERTO+probe Ql (Unsp spec)on 01-31-2025 C. trachomatis rRNA ALVERTO+probe Ql (Unsp spec) Not detected Normal Not detected [facility] Comment on above: Order Comment: Speci men Type: SWAB Ordering Facility: [facility] Address: [address] [place] [address] Performed By: #### 3 6902-5, TRVAMP #### [facility] CLIA [id number] [address] [place] [address] STATES [place] [facility] N. gonorrhoeae rRNA ALVERTO+probe Ql (Unsp spec) Not detected Normal Not detected [facility] Comment on above: Order Comment: Speci men Type: SWAB Ordering Facility: [facility] Address: [address] [place] [address] Performed By: #### 3 6902-5, TRVAMP #### [facility] CLIA [id number] [address] [place] [address] OF [facility] P[facility] [employer] ULTRASOUNDon 02-01-20 25 Indication Confirmation of intrauterine . Confirmation of cardiac activity. Estimation of gestational age. Viability Impression cardiac activity is visualized, CRL indicates discrepancy from clinical dates, 8 days difference- did not change dating at NOB Recommendations Follow up for 1st Trimester Anatomy with Nuchal Translucency as clinically indicated if desired. Method Transvaginal ultrasound examination. View: Adequate visualization Langley . Number of embryos: 1 Dating LMP on: 11/30/2024 GA by LMP 8 w + 6 d ALLEN by LMP: 09/06/2025 Ultrasound examination on: 01/31/2025 GA by U/S based upon: CRL GA by U/S 7 w + 5 d ALLEN by U/S: 09/14/2025 Assigned: based on the LMP, selected on 01/31/2025 Assigned GA 8 w + 6 d Assigned ALLEN: 09/06/2025 Biometry Standard FHR 161 bpm CRL 14.4 mm 7w 5d <1% Hadlock Assessment Gestational sac: visualized Location: intrauterine Yolk sac: visualized Embryo: visualized CRL 14.4 mm 7w 5d <1% Hadlock Cardiac activity: present FHR 161 bpm Maternal Structures BMI 34 General Evaluation Cardiac activity present. FHR 161 bpm Performed By: Rowena Hawthorne CNP Read By: Rowena Hawthorne CNP MATERNAL MEDICINE [facility] Radiology Study observation (narrative) [facility] T. vaginalis DNA ALVERTO+probe Ql (Unsp spec) Not detected Normal Not detected [facility] Comment on above: Order Comment: Speci men Type: SWAB [facility] Facility: [facility] Address: [address] [place] [address] Performed By: #### 3 6902-5, SAURABH #### [facility] CLIA [id number] [facility] [place] [address] [place] B-HCG SerPl-aCncon 5 HCG.beta subunit Qn 388.1 m[IU]/mL High <5.0 C [facility] Comment on above: Order Comment: Speci men Type: BLOOD SPECIMENOrdering Facility: [facility] Address: [address] [place] [address] Result Comment: CHARLIE TITATIVE HCG NORMAL RANGES Weeks of Gestation (Weeks Since LMP) 3 Weeks (5.8-71.2 mIU/mL) 4 Weeks (9.5-750 mIU/mL) 5 Weeks (217-7138 mIU/mL) 6 Weeks (158-75448 mIU/mL) 7 Weeks (3697-908128 mIU/mL) 8 Weeks (36492-131128 mIU/mL) 9 Weeks (72173-987698 mIU/mL) 10 Weeks (72413-427860 mIU/mL) 12 Weeks (51201-090242 mIU/mL) Referenced to 4th IS of [facility] Performed By: #### 2 1198-7 ####[facility] [id number] [address] [place] B-HCG SerPl-aCncon 5 HCG.beta subunit Qn 122.5 m[IU]/mL High <5.0 C [facility] Comment on above: Order Comment: Speci men Type: BLOOD SPECIMEN Ordering Facility: [facility] Address: [address] [place] [address] Result Comment: CHARLIE TITATIVE HCG NORMAL RANGES Weeks of Gestation (Weeks Since LMP) 3 Weeks (5.8-71.2 mIU/mL) 4 Weeks (9.5-750 mIU/mL) 5 Weeks (217-7138 mIU/mL) 6 Weeks (158-61794 mIU/mL) 7 Weeks (3697-615401 mIU/mL) 8 Weeks (41316-454456 mIU/mL) 9 Weeks (55871-968291 mIU/mL) 10 Weeks (11889-996158 mIU/mL) 12 Weeks (56882-975206 mIU/mL) Referenced to 4th IS of [facility] Performed By: #### 2 532-0, 3084-1, 34003-6 #### [facility] CLIA [id number] [address] [place] [address] [place] HCG QUANTITATIVEon 5 HCG.beta subunit Qn 122.5 m[IU]/mL [facility] Comment on above: QUANTITATIVE HCG NOR MAL RANGES Weeks of Gestation (Weeks Since LMP) 3 Weeks (5.8-71.2 mIU/mL) 4 Weeks (9.5-750 mIU/mL) 5 Weeks (217-7138 mIU/mL) 6 Weeks (158-94832 mIU/mL) 7 Weeks (3697-952530 mIU/mL) 8 Weeks (34354-101934 mIU/mL) 9 Weeks (65063-191421 mIU/mL) 10 Weeks (89810-544670 mIU/mL) 12 Weeks (37932-257982 mIU/mL) Referenced to 4th IS of [facility] HCG.beta subunit Qnon 2024 Interpretation and review of laboratory results Abnormal [facility] HCG QUANTITATIVEon 5 HCG.beta subunit Qn 54.8 m[IU]/mL [facility] Comment on above: QUANTITATIVE HCG NOR MAL RANGES Weeks of Gestation (Weeks Since LMP) 3 Weeks (5.8-71.2 mIU/mL) 4 Weeks (9.5-750 mIU/mL) 5 Weeks (217-7138 mIU/mL) 6 Weeks (158-59190 mIU/mL) 7 Weeks (3697-661085 mIU/mL) 8 Weeks (84211-883189 mIU/mL) 9 Weeks (82471-400263 mIU/mL) 10 Weeks (68885-334886 mIU/mL) 12 Weeks (24654-559175 mIU/mL) Referenced to 4th IS of [facility] HCG.beta subunit Qnon 2024 Interpretation and review of laboratory results Abnormal [facility] B-HCG SerPl-aCncon 5 HCG.beta subunit Qn 54.8 m[IU]/mL High <5.0 Cl [facility] Comment on above: Order Comment: Speci men Type: BLOOD SPECIMENOrdering Facility: [facility] Address: [address] [place] [address] Result Comment: CHARLIE TITATIVE HCG NORMAL RANGES Weeks of Gestation (Weeks Since LMP) 3 Weeks (5.8-71.2 mIU/mL) 4 Weeks (9.5-750 mIU/mL) 5 Weeks (217-7138 mIU/mL) 6 Weeks (158-66099 mIU/mL) 7 Weeks (3697-482150 mIU/mL) 8 Weeks (25756-871392 mIU/mL) 9 Weeks (49137-530794 mIU/mL) 10 Weeks (79024-228211 mIU/mL) 12 Weeks (38475-064081 mIU/mL) Referenced to 4th IS of [facility] Performed By: #### 2 1198-7 ####[facility] [id number] [address] [place] CNPCathy 12-31-2024 CNPN Telephone (ALDA) ERWIN BALDWIN ([id number]) 1995 F Date Time Provider Department 12/31/24 HELLEN RICHARDSON During your visit today, we recorded the following information about you: Diane Fraga, RN 12/31/2024 5:10 PM Addendum LMP 11/30/24 Pt was prescribed letrozole (FEMARA) 2.5 mg tablet started taking 12/04/24 and ovulated on day 20. Just took test and got a positive. Denies vaginal bleeding. Last was an early miscarriage and Pt is very anxious and asking if HCG levels can be checked-Pt would like to get checked tomorrow morning. HCG orders pending. Please file if appropriate and will contact Pt. POONAM Fry Tara, RN 12/31/2024 5:12 PM Signed Pt notified to get completed Friday01/01/25 and Friday01/03/25. Please keep open for results. POONAM Fry Tara, RN 01/04/2025 8:15 AM Signed hCG Quantitative, Blood Date Value 01/03/2025 122.5 mIU/mL 01/01/2025 54.8 mIU/mL Please see Result f/u note from 01/03/25 with Pt's questions.Pt has virtual visit with DM today at 11:40am. POONAM Fry Deidre, MD 01/04/2025 8:21 AM Signed Excellent, congrats! Trending up appropriately. Schedule for new ob visit. Hellen Snyder RN 01/04/2025 9:32 AM Signed Patient has NOB already scheduled. Hellen Snyder RN Allergies As of Date: 12/31/2024 Noted Allergy Reaction ROCEPHIN (CEFTRIAXONE) 06/18/2005 4 - Hives 12 - Shortness of Breath Date Reviewed: 12/08/2024 Reviewed by: Lalit Gillette LPN - Fully Assessed Reason for Visit: + test [Other] Primary Visit Diagnosis:Encounter for test, result positive ([facility]) [Z32.01] Order(s):HCG QUANTITATIVE [SQHCGQT] Order #: [id number] STANDING Prescriptions as of 01/04/2025 - letrozole (FEMARA) 2.5 mg tablet Take 2 tablets by mouth once daily for 5 days. On cycle days 3-7 - sertraline (ZOLOFT) 100 mg tablet Take 1 tablet by mouth once daily. - ondansetron orally disintegrating (ZOFRAN ODT) 4 mg disintegrating tablet Take 1 tablet by mouth every 8 hours as needed for nausea/vomiting. - azithromycin (ZITHROMAX Z-EVELYN) 250 mg tablet Take 2 tablets PO day 1, THEN 1 TAB DAILY FOR 4 DAYS. - doxycycline hyclate (VIBRAMYCIN) 100 mg capsule Take 1 capsule (100 mg) by mouth two times a day. Problem List As Of Date 12/31/2024 Noted Resolved Adjustment disorder [F43.20] 12/28/2012 Anxiety [F41.9] 12/28/2012 Seasonal allergies [J30.2] 06/08/2013 IT band syndrome [M76.30] 07/05/2013 Ovarian cyst [N83.209] 07/25/2013 08/11/2015 Kidney calculus [N20.0] 07/25/2013 Routine physical examination [Z00.00] 06/19/2018 10/15/2018 Thyromegaly [E01.0] 06/19/2018 Fatigue [R53.83] 06/19/2018 Family history of thyroid disease [Z83.49] 06/19/2018 Nephrolithiasis [N20.0] 06/19/2018 Bloating [R14.0] 03/08/2020 EMILEE (generalized anxiety disorder) [F41.1] 03/08/2020 Elevated fasting glucose [R73.01] 03/08/2020 Thyroid nodule [E04.1] 03/08/2020 History of anxiety [Z86.59] 12/13/2021 History of thyroid nodule [Z86.39] 12/13/2021 Low-lying placenta [O44.40] 03/28/2022 05/29/2022 COVID-19 affecting in third trimester*05/29/2022 Abnormal glucose complicating [O99.81*05/29/2022 Gestational diabetes mellitus, class A1 [O24.41*06/11/2022 09/25/2022 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 [place] [address] Result Comment: Clas sification of 25 OH Vitamin D status: Deficiency/Insufficiency: < or = 30 ng/ml. Sufficiency/Optimal Levels: 31-80 ng/mL Toxicity: > 100 ng/mL. Test performed by chemiluminescent immunoassay. Performed By: #### 2 532-0, 3083-1, #### [facility] CLIA [id number] [address] [place] [address] [place] CBC W Auto Differential pane l (Bld)on 12-27-2024 Basophils (Bld) [#/Vol] 0.03 10*3/uL Normal <0.11 [facility] Comment on above: Order Comment: Speci men Type: BLOOD SPECIMEN Ordering Facility: [facility] Address: [address] [place] [address] Performed By: #### 2 532-0, 3083-09, #### [facility] CLIA [id number] [address] [place] [address] [place] Basophils/100 WBC (Bld) 0.3 % Normal [facility] Comment on above: Order Comment: Speci men Type: BLOOD SPECIMEN Ordering Facility: [facility] Address: [address] [place] [address] Performed By: #### 2 532-0, 3083-09, #### [facility] CLIA [id number] [address] [place] [address] [place] Differential cell count method Nom (Bld) Auto Normal [facility] Comment on above: Order Comment: Speci men Type: BLOOD SPECIMEN Ordering Facility: [facility] Address: [address] [place] [address] Performed By: #### 2 532-0, 3083-09, #### [facility] CLIA [id number] [address] [place] [address] [place] Eosinophils (Bld) [#/Vol] 0.13 10*3/uL Normal <0.46 [facility] Comment on above: Order Comment: Speci men Type: BLOOD SPECIMEN Ordering Facility: [facility] Address: [address] [place] [address] Performed By: #### 2 532-0, 3083-09, #### [facility] CLIA [id number] [address] [place] [address] [place] Eosinophils/100 WBC (Bld) 1.3 % Normal [facility] Comment on above: Order Comment: Speci men Type: BLOOD SPECIMEN Ordering Facility: [facility] Address: [address] [place] [address] Performed By: #### 2 532-0, 3083-09, #### [facility] CLIA [id number] [address] [place] [address] [place] Erythrocyte distribution width (RBC) [Ratio] 13.0 % Normal 11.5-15.0 [facility] Comment on above: Order Comment: Speci men Type: BLOOD SPECIMEN Ordering Facility: [facility] Address: [address] [place] [address] Performed By: #### 2 532-0, 3083-09, #### [facility] CLIA [id number] [address] [place] [address] [place] Hematocrit (Bld) [Volume fraction] 43.0 % Normal 36.0-46.0 [facility] Comment on above: Order Comment: Speci men Type: BLOOD SPECIMEN Ordering Facility: [facility] Address: [address] [place], [place] [address] Performed By: #### 2 532-0, 3083-09, #### [facility] CLIA [id number] [address] [place], [place] [address] [place] Hemoglobin (Bld) [Mass/Vol] 14.0 g/dL Normal 11.5-15.5 [facility] Comment on above: Order Comment: Speci men Type: BLOOD SPECIMEN Ordering Facility: [facility] Address: [address] [place] [address] Performed By: #### 2 532-0, 308-1, 94824-7 #### [facility] CLIA [id number] [address] [place] [address] [place] Immature granulocytes (Bld) [#/Vol] 0.04 10*3/uL Normal <0.10 [facility] Comment on above: Order Comment: Speci men Type: BLOOD SPECIMEN Ordering Facility: [facility] Address: [address] [place] [address] Performed By: #### 2 532-0, 30812-21, 06152-4 #### [facility] CLIA [id number] [address] [place] [address] [place] Immature granulocytes/100 WBC (Bld) 0.4 % Normal [facility] Comment on above: Order Comment: Speci men Type: BLOOD SPECIMEN Ordering Facility: [facility] Address: [address] [place] [address] Performed By: #### 2 532-0, 3083-09, #### [facility] CLIA [id number] [address] [place] [address] [place] Lymphocytes (Bld) [#/Vol] 3.46 10*3/uL Normal 1.00-4.00 [facility] Comment on above: Order Comment: Speci men Type: BLOOD SPECIMEN Ordering Facility: [facility] Address: [address] [place] [address] Performed By: #### 2 532-0, 30812-21, 46457-3 #### [facility] CLIA [id number] [address] [place] [address] [place] Lymphocytes/100 WBC (Bld) 33.9 % Normal [facility] Comment on above: Order Comment: Speci men Type: BLOOD SPECIMEN Ordering Facility: [facility] Address: [address] [place] [address] Performed By: #### 2 532-0, 3084-1, 90845-8 #### [facility] CLIA [id number] [address] [place] [address] [place] MCH (RBC) [Entitic mass] 28.2 pg Normal 26.0-34.0 [facility] Comment on above: Order Comment: Speci men Type: BLOOD SPECIMEN Ordering Facility: [facility] Address: [address] [place] [address] Performed By: #### 2 532-0, 3084-1, 13785-5 #### [facility] CLIA [id number] [address] [place] [address] [place] MCHC (RBC) [Mass/Vol] 32.6 g/dL Normal 30.5-36.0 [facility] Comment on above: Order Comment: Speci men Type: BLOOD SPECIMEN Ordering Facility: [facility] Address: [address] [place] [address] Performed By: #### 2 532-0, 308-1, 25036-6 #### [facility] CLIA [id number] [address] [place] [address] [place] MCV (RBC) [Entitic vol] 86.5 fL Normal 80.0-100.0 [facility] Comment on above: Order Comment: Speci men Type: BLOOD SPECIMEN Ordering Facility: [facility] Address: [address] [place] [address] Performed By: #### 2 532-0, 3084-1, 24550-6 #### [facility] CLIA [id number] [address] [place] [address] [place] Monocytes (Bld) [#/Vol] 0.72 10*3/uL Normal <0.87 [facility] Comment on above: Order Comment: Speci men Type: BLOOD SPECIMEN Ordering Facility: [facility] Address: [address] [place] [address] Performed By: #### 2 532-0, 3083-09, #### [facility] CLIA [id number] [address] [place] [address] [place] Monocytes/100 WBC (Bld) 7.0 % Normal [facility] Comment on above: Order Comment: Speci men Type: BLOOD SPECIMEN Ordering Facility: [facility] Address: [address] [place] [address] Performed By: #### 2 532-0, 3083-09, #### [facility] CLIA [id number] [address] [place] [address] [place] Neutrophils (Bld) [#/Vol] 5.84 10*3/uL Normal 1.45-7.50 [facility] Comment on above: Order Comment: Speci men Type: BLOOD SPECIMEN Ordering Facility: [facility] Address: [address] [place] [address] Performed By: #### 2 532-0, 3083-09, #### [facility] CLIA [id number] [address] [place] [address] [place] Neutrophils/100 WBC (Bld) 57.1 % Normal [facility] Comment on above: Order Comment: Speci men Type: BLOOD SPECIMEN Ordering Facility: [facility] Address: [address] [place] [address] Performed By: #### 2 532-0, 3083-09, #### [facility] CLIA [id number] [address] [place] [address] [place] Nucleated RBC (Bld) [#/Vol] 10*3/uL Normal <0.01 [facility] Comment on above: Order Comment: Speci men Type: BLOOD SPECIMEN Ordering Facility: [facility] Address: [address] [place] [address] Performed By: #### 2 532-0, 3083-09, #### [facility] CLIA [id number] [address] [place] [address] [place] Nucleated RBC/100 WBC (Bld) [Ratio] 0.0 /100 WBC Normal [facility] Comment on above: Order Comment: Speci men Type: BLOOD SPECIMEN Ordering Facility: [facility] Address: [address] [place] [address] Performed By: #### 2 532-0, 3083-09, #### [facility] CLIA [id number] [address] [place], [place] [address] [place] Platelet mean volume (Bld) [Entitic vol] 11.5 fL Normal 9.0-12.7 [facility] Comment on above: Order Comment: Speci men Type: BLOOD SPECIMEN Ordering Facility: [facility] Address: [address] [place] [address] Performed By: #### 2 532-0, 3083-09, #### [facility] CLIA [id number] [address] [place], [place] [address] [place] Platelets (Bld) [#/Vol] 242 10*3/uL Normal 150-400 [facility] Comment on above: Order Comment: Speci men Type: BLOOD SPECIMEN Ordering Facility: [facility] Address: [address] [place] [address] Performed By: #### 2 532-0, 3083-09, #### [facility] CLIA [id number] [address] [place] [address] [place] RBC (Bld) [#/Vol] 4.97 10*6/uL Normal 3.90-5.20 [facility] Comment on above: Order Comment: Speci men Type: BLOOD SPECIMEN Ordering Facility: [facility] Address: [address] [place] [address] Performed By: #### 2 532-0, 3083-09, #### [facility] CLIA [id number] [address] [place] [address] [place] WBC (Bld) [#/Vol] 10.22 10*3/uL Normal 3.70-11.00 [facility] Comment on above: Order Comment: Speci men Type: BLOOD SPECIMEN Ordering Facility: [facility] Address: [address] [place] [address] Performed By: #### 2 532-0, 308-1, #### [facility] CLIA [id number] [address] [place], [place] [address] [place] Comprehensive metabolic 2000 panelon 12-27-2024 Albumin [Mass/Vol] 4.5 g/dL Normal 3.9-4.9 [facility] Comment on above: Order Comment: Speci men Type: BLOOD SPECIMEN Ordering Facility: [facility] Address: [address] [place] [address] Performed By: #### 2 532-0, 3083-1, #### [facility] CLIA [id number] [address] [place] [address] [place] ALP [Catalytic activity/Vol] 88 U/L Normal 34-123 [facility] Comment on above: Order Comment: Speci men Type: BLOOD SPECIMEN Ordering Facility: [facility] Address: [address] [place] [address] Performed By: #### 2 532-0, 1, #### [facility] CLIA [id number] [address] [place], [place] [address] [place] ALT [Catalytic activity/Vol] 12 U/L Normal 7-38 [facility] Comment on above: Order Comment: Speci men Type: BLOOD SPECIMEN Ordering Facility: [facility] Address: [address] [place] [address] Performed By: #### 2 532-0, 308-1, 88063-9 #### [facility] CLIA [id number] [address] [place], [place] [address] [place] Anion gap [Moles/Vol] 13 mmol/L Normal 8-15 [facility] Comment on above: Order Comment: Speci men Type: BLOOD SPECIMEN Ordering Facility: [facility] Address: [address] [place] [address] Performed By: #### 2 532-0, 3084-1, 33213-1 #### [facility] CLIA [id number] [address] [place], [place] [address] [place] AST [Catalytic activity/Vol] 13 U/L Normal 13-35 [facility] Comment on above: Order Comment: Speci men Type: BLOOD SPECIMEN Ordering Facility: [facility] Address: [address] [place] [address] Performed By: #### 2 532-0, 308-1, 49787-8 #### [facility] CLIA [id number] [address] [place] [address] [place] Bilirubin [Mass/Vol] 0.3 mg/dL Normal 0.2-1.3 [facility] Comment on above: Order Comment: Speci men Type: BLOOD SPECIMEN Ordering Facility: [facility] Address: [address] [place] [address] Performed By: #### 2 532-0, 308-1, 44961-1 #### [facility] CLIA [id number] [address] [place] [address] [place] Calcium [Mass/Vol] 9.9 mg/dL Normal 8.5-10.2 [facility] Comment on above: Order Comment: Speci men Type: BLOOD SPECIMEN Ordering Facility: [facility] Address: [address] [place] [address] Performed By: #### 2 532-0, 308-1, 02685-1 #### [facility] CLIA [id number] [address] [place], [place] [address] [place] Chloride [Moles/Vol] 104 mmol/L Normal 98-107 [facility] Comment on above: Order Comment: Speci men Type: BLOOD SPECIMEN Ordering Facility: [facility] Address: [address] [place] [address] Performed By: #### 2 532-0, 3084-1, 10548-0 #### [facility] CLIA [id number] [address] [place] [address] [place] CO2 [Moles/Vol] 23 mmol/L Normal 22-30 [facility] Comment on above: Order Comment: Speci men Type: BLOOD SPECIMEN Ordering Facility: [facility] Address: [address] [place] [address] Performed By: #### 2 532-0, 3084-1, 36315-5 #### [facility] CLIA [id number] [address] [place] [address] [place] [facility] Creatinine [Mass/Vol] 0.90 mg/dL Normal 0.58-0.96 [facility] Comment on above: Order Comment: Speci men Type: BLOOD SPECIMEN Ordering Facility: [facility] Address: [address] [place] [address] Performed By: #### 2 532-0, 3084-1, 88658-0 #### [facility] CLIA [id number] [address] [place] [address] [place] Creatinine and Glomerular filtration rate.predicted panel (S/P/Bld) 89 mL/min/1.73m??? Normal >=60 [facility] Comment on above: Order Comment: Speci men Type: BLOOD SPECIMEN Ordering Facility: [facility] Address: [address] [place] [address] Result Comment: Anila mated Glomerular Filtration Rate (eGFR) is calculated using the 2020 CKD-EPI creatinine equation. This equation utilizes serum creatinine, sex, and age as parameters. The creatinine assay has traceable calibration to isotope dilution-mass spectrometry. Refer to KDIGO guidelines for clinical interpretation. In patients with unstable renal function, e.g. those with acute kidney injury, the eGFR may not accurately reflect actual GFR. Performed By: #### 2 532-0, 3083-09, #### [facility] CLIA [id number] [address] [place], [place] [address] [place] Glucose [Mass/Vol] 92 mg/dL Normal 74-99 [facility] Comment on above: Order Comment: Jasmyne plasencia Type: BLOOD SPECIMEN Ordering Facility: [facility] Address: [address] [place] [address] Result Comment: The [place] Diabetes Association (ADA) provides guidance for cutoff values for fasting glucose and random glucose. The ADA defines fasting as no caloric intake for at least 8 hours. Fasting plasma glucose results between 100 to 125 mg/dL indicate increased risk for diabetes (prediabetes). Fasting plasma glucose results greater than or equal to 126 mg/dL meet the criteria for diagnosis of diabetes. In the absence of unequivocal hyperglycemia, results should be confirmed by repeat testing. In a patient with classic symptoms of hyperglycemia or hyperglycemic crisis, random plasma glucose results greater than or equal to 200 mg/dL meet the criteria for diagnosis of diabetes. Reference: Standards of Medical Care in Diabetes 2016, [place] Diabetes Association. Diabetes Care. 2016.39(Suppl 1). Performed By: #### 2 532-0, 3083-09, #### [facility] CLIA [id number] [address] [place], [place] [address] [place] Potassium [Moles/Vol] 4.1 mmol/L Normal 3.7-5.1 [facility] Comment on above: Order Comment: Jasmyne plasencia Type: BLOOD SPECIMEN Ordering Facility: [facility] Address: [address] [place] [address] Performed By: #### 2 532-0, 3083-09, #### [facility] CLIA [id number] [address] [place] [address] [place] Protein [Mass/Vol] 7.0 g/dL Normal 6.3-8.0 [facility] Comment on above: Order Comment: Speci men Type: BLOOD SPECIMEN Ordering Facility: [facility] Address: [address] [place] [address] Performed By: #### 2 532-0, 3083-09, 09379-5 #### [facility] CLIA [id number] [address] [place], [place] [address] [place] Sodium [Moles/Vol] 140 mmol/L Normal 136-144 [facility] Comment on above: Order Comment: Speci men Type: BLOOD SPECIMEN Ordering Facility: [facility] Address: [address] [place] [address] Performed By: #### 2 532-0, 3083-09, #### [facility] CLIA [id number] [address] [place] [address] [place] Urea nitrogen [Mass/Vol] 15 mg/dL Normal 7-21 [facility] Comment on above: Order Comment: Speci men Type: BLOOD SPECIMEN Ordering Facility: [facility] Address: [address] [place] [address] Performed By: #### 2 532-0, 3083-09, #### [facility] CLIA [id number] [address] [place] [address] [place] HbA1c (Bld)on 12-27-2024 Average glucose Estimated from glycated hemoglobin (Bld) [Mass/Vol] 100 mg/dL Normal [facility] Comment on above: Order Comment: Speci men Type: BLOOD SPECIMENOrdering Facility: [facility] Address: [address] [place] [address] Result Comment: eAG: (Estimated average glucose) is a calculated value from HgbA1c and is bilingual call center representative of the average blood glucose level in the last 2-3 month period. Performed By: #### 5 5454-3 ####[facility] [id number] [place] [address] [place] HbA1c (Bld) [Mass fraction] 5.1 % Normal 4.3-5.6 [facility] Comment on above: Order Comment: Speci men Type: BLOOD SPECIMENOrdering Facility: [facility] Address: [address] [place] [address] Result Comment: [place]a [place] Diabetes Association guidelines indicate that patients with HgbA1c in the range 5.7-6.4% are at increased risk for development of diabetes, and intervention by lifestyle modification may be beneficial. HgbA1c greater or equal to 6.5% is considered diagnostic of diabetes. Performed By: #### 5 5454-3 ####[facility] [id number] [place] [address] [place] Progest SerPl-mCncon 025 Progesterone [Mass/Vol] 8.1 ng/mL Normal See comment [facility] Comment on above: Order Comment: Spec men Type: BLOOD SPECIMEN Ordering Facility: [facility] Address: [address] [place] [address] Result Comment: Mens trual Cycle Progesterone Reference Ranges: Follicular: <1.0 ng/mL Ovulation: <12.1 ng/mL Luteal: 1.8 to 23.9 ng/mL. Progesterone Reference Ranges vary by gestational period: First Trimester: 11.0 to 44.3 ng/mL Second Trimester: 25.4 to 83.3 ng/mL Third Trimester: 58.7 to 214 ng/mL Post menopausal Progesterone: <0.5 ng/mL Reference: 1. Progesterone (Progesterone III) [package insert V 1.0 Nigerian]. [facility], [place], [place]. June 2015. Performed By: #### 2 532-0, 3084-1, 87389-4 #### [facility] CLIA [id number] [address] [place] [address] [place] T3Free SerPl-mCncon 12-28-19 25 Free T3 [Mass/Vol] 3.0 pg/mL Normal 2.3-4.1 [facility] Comment on above: Order Comment: Speci men Type: SWAB Ordering Facility: [facility] Address: [address] [place] [address] Performed By: #### 3 6902-5, TRVAMP #### [facility] CLIA [id number] [address] [place] [address] [place] T4 Free SerPl-mCncon 025 Free T4 [Mass/Vol] 1.1 ng/dL Normal 0.9-1.7 [facility] Comment on above: Order Comment: Speci men Type: BLOOD SPECIMEN Ordering Facility: [facility] Address: [address] [place] [address] Performed By: #### 2 532-0, 3084-1, 62605-7 #### [facility] CLIA [id number] [address] [place] [address] [place] TSH SerPl-aCncon 12-27-2024 TSH Qn 1.130 m[IU]/L Normal 0.270-4.200 [facility] Comment on above: Order Comment: Speci luis angel Type: BLOOD SPECIMEN Ordering Facility: [facility] Address: [address] [place] [address] Result Comment: If t he patient is , TSH reference range varies by gestational period: First Trimester (weeks 9-12): 0.180-2.990 mIU/L Second Trimester: 0.110-3.980 mIU/L Third Trimester: 0.480-4.710 mIU/L Romeo Sun et al. A Practical Approach for the Verifications and Determination of Site- and Trimester-Specific Reference Intervals for Thyroid Function tests in . Thyroid, 2019:29:3:412-420. Unruly Paul, et al. 2017 Guidelines of the [place] Thyroid Association for the Diagnosis and Management of Thyroid Disease during and the . Thyroid, 2017:27:3:315-389. Performed By: #### 2 532-0, 3084-1, 08297-4 #### [facility] CLIA [id number] [address] [place] [address] [place] Vit B12 SerPl-mCncon 025 Cobalamin (Vitamin B12) [Mass/Vol] 395 pg/mL Normal 232-1245 [facility] Comment on above: Order Comment: Speci men Type: BLOOD SPECIMEN Ordering Facility: [facility] Address: [address] [place] [address] Performed By: #### 2 532-0, 3084-1, 80918-8 #### [facility] CLIA [id number] [address] [place] [address] [facility] CNOVon 12-08-2024 CNOV Office Visit (FAMPWS ) ERWIN BALDWIN ([id number]) 1995 F Date Time Provider Department 12/08/24 5:00 PM [facility], we recorded the following information about you: Temperature Pulse Respiration Blood pressure 97.6 degrees 80/minute 16/minute 100/60 Weight Height Last Period 85.3 kg 1.58 m 11/30/24 Kaden Meyer DO 12/08/2024 6:33 PM Signed CC: Erwin Baldwin is a 29 year old female who presents to the office for physical HPI: Overall she is doing well She is in the process of work up and assessment with [employer] [facility] for difficulty with getting over the last 16 months. She is taking femara as needed at this time. She had normal pelvic US She hasn't had her get testing yet. PAST MEDICAL HISTORY Diagnosis Date Adjustment disorder 12/28/2012 Anxiety 12/28/2012 Gallstones with obstruction of gallbladder 2003 resolved (post surgery) Gestational diabetes mellitus, class A1 06/11/2022 Ill-defined closed fractures of upper limb 2004 Kidney calculus 07/25/2013 evaluated by urology Knee pain 06/08/2013 resolved Ovarian cyst 07/25/2013 resolved PMH - PAST MEDICAL HISTORY OF 05-02-2001 normal color vision Pneumonia 07/25/2013 bilateral lungs Respiratory syncytial virus (RSV) resolved Seasonal allergies 06/08/2013 thyroid nodule PAST SURGICAL HISTORY Procedure Laterality Date DELIVERY ONLY 08/14/2022 LTCS CHOLEYCYSTOGRAM GALL BLADDER 2004 removal EXTRACTION ERUPTED TOOTH/EXR Bilateral bottem NEPHROLITHOTOMY REMOVAL STAGE 1 06/12/2018 TONSILLECTOMY AND ADENOIDECTOMY TYMPANOSTOMY LOCAL/TOPICAL ANESTHESIA 02/1997 TYMPANOSTOMY LOCAL/TOPICAL ANESTHESIA 08/1999 Social History: Social History Tobacco Use Smoking status: Never Smokeless tobacco: Never Tobacco comments: pt does not smoke Vaping Use Vaping status: Never Used Substance Use Topics Alcohol use: Not Currently Comment: occasional Drug use: No FAMILY HISTORY Problem Relation Age of Onset Heart Mother Thyroid Mother thyroid cancer other (Hypotension) Mother other (Migraine) Mother other (HELLP) Mother Hypertension Father No Known Problems Brother Thyroid Maternal Grandmother Hypertension Maternal Grandmother Breast Cancer Maternal Grandmother 73 Hypertension Maternal Grandfather Diabetes Maternal Grandfather Heart Maternal Grandfather other (Migraine) Maternal Grandfather Heart Paternal Grandmother Thyroid Paternal Grandmother No Known Problems Paternal Grandfather Thyroid Maternal Aunt other (Migraine) Maternal Uncle other (Migraine) Other Maternal cousin Current Outpatient prescriptions: sertraline (ZOLOFT) 100 mg tablet Take 1 tablet by mouth once daily. letrozole (FEMARA) 2.5 mg tablet Take on Cycle Days 3-7 ondansetron orally disintegrating (ZOFRAN ODT) 4 mg disintegrating tablet Take 1 tablet by mouth every 8 hours as needed for nausea/vomiting. azithromycin (ZITHROMAX Z-EVELYN) 250 mg tablet Take 2 tablets PO day 1, THEN 1 TAB DAILY FOR 4 DAYS. doxycycline hyclate (VIBRAMYCIN) 100 mg capsule Take 1 capsule (100 mg) by mouth two times a day. Allergies: ALLERGIES Allergen Reactions Rocephin [Ceftriaxo* Hives, Shortness of Breath ROS: See HPI PE: 12/08/24 1720 BP: 100/60 Pulse: 80 Resp: 16 Temp: 36.4 ?C (97.6 ?F) TempSrc: Right Tympanic Weight: 85.3 kg (188 lb) Height: 158 cm (5' 2.21) Gen: AANDO, NAD, non-toxic appearing, Pleasant, cooperative HEENT: NT/AC, PERRLA, EOMs intact b/l, nares clear and patent b/l, pharynx without erythema, exudate or lesions. Uvula midline. EACs without erythema or debris. TMs pearly davies with intact landmarks b/l. Neck: supple, No cervical LAD, no thyromegaly, no carotid bruits CV: RRR, normal S1 and S2, no murmurs, no gallops, no rubs, Pulses 2+ and symmetric in UE and LE b/l Lungs: normal respiratory effort, CTA b/l, no wheezing or rhonchi or rales Abd: soft, NT, ND, +BS, no hepatosplenomegaly MS: FROM all 4 extremities Neuro: CN II-XII intact b/l, strength 5/5 b/l UE and LE, DTRs 2/4 UE and LE, sensation intact. Skin: warm, dry, intact, No rashes or lesions on exposed skin. No edema, normal pulses ASSESSMENT/PLAN: 1. Well adult exam - ICD9: V70.0, ICD10: Z00.00 - Counseled on healthy diet and regular exercise - THYROID STIMULATING HORMONE - T4 FREE/FREE THYROXINE - T3, FREE - COMPREHENSIVE METABOLIC PANEL - COMPLETE BLOOD COUNT AND DIFFERENTIAL - HEMOGLOBIN A1C - VITAMIN D 25 HYDROXY - VITAMIN B12 Kaden Meyer DO To ER if develops chest pain, shortness of breath, or severe worsening of symptoms. Discussed risks, benefits, alternatives, and potential side effects of medications. Patient expressed understanding and agreed with the plan. Kaden Meyer DO [address] [place] [address] Phone: [phone] (more content not included)... Normal [facility] US Pelvison 10-19-2024 [facility] Radiology Study observation (narrative) [facility] CNPNon 10-13-2024 [facility] ERWIN BALDWIN ([id number]) 1995 F Date Time Provider Department 10/13/24 MEYER, KADEN L FAMPWS During your visit today, we recorded the following information about you: MeyerKaden wing DO Corinne 10/13/2024 12:13 PM Signed Please inform patient that her viral studies show that she has Influenza A. Ok to take Tamiflu if interested. Otherwise supportive care with increased fluids and rest Kdaen Meyer Lalit Rankin LPN 10/13/2024 12:43 PM Signed Pt. informed Allergies As of Date: 10/13/2024 Noted Allergy Reaction ROCEPHIN (CEFTRIAXONE) 06/18/2005 4 - Hives 12 - Shortness of Breath Date Reviewed: 10/12/2024 Reviewed by: Lalit Gillette LPN - Fully Assessed Reason for Visit: Results [95] Prescriptions as of 10/13/2024 - sertraline (ZOLOFT) 100 mg tablet Take 1 tablet by mouth once daily. - ondansetron orally disintegrating (ZOFRAN ODT) 4 mg disintegrating tablet Take 1 tablet by mouth every 8 hours as needed for nausea/vomiting. - azithromycin (ZITHROMAX Z-EVELYN) 250 mg tablet Take 2 tablets PO day 1, THEN 1 TAB DAILY FOR 4 DAYS. - doxycycline hyclate (VIBRAMYCIN) 100 mg capsule Take 1 capsule (100 mg) by mouth two times a day. - oseltamivir (TAMIFLU) 75 mg capsule Take 1 capsule by mouth two times a day for 5 days. Problem List As Of Date 10/13/2024 Noted Resolved Adjustment disorder [F43.20] 12/28/2012 Anxiety [F41.9] 12/28/2012 Seasonal allergies [J30.2] 06/08/2013 IT band syndrome [M76.30] 07/05/2013 Ovarian cyst [N83.209] 07/25/2013 08/11/2015 Kidney calculus [N20.0] 07/25/2013 Routine physical examination [Z00.00] 06/19/2018 10/15/2018 Thyromegaly [E01.0] 06/19/2018 Fatigue [R53.83] 06/19/2018 Family history of thyroid disease [Z83.49] 06/19/2018 Nephrolithiasis [N20.0] 06/19/2018 Bloating [R14.0] 03/08/2020 EMILEE (generalized anxiety disorder) [F41.1] 03/08/2020 Elevated fasting glucose [R73.01] 03/08/2020 Thyroid nodule [E04.1] 03/08/2020 History of anxiety [Z86.59] 12/13/2021 History of thyroid nodule [Z86.39] 12/13/2021 Low-lying placenta [O44.40] 03/28/2022 05/29/2022 COVID-19 affecting in third trimester*05/29/2022 Abnormal glucose complicating [O99.81*05/29/2022 Gestational diabetes mellitus, class A1 [O24.41*06/11/2022 09/25/2022 Encounter Status:Closed by LALIT GILLETTE LPN on 10/13/24 [facility] CNOVon 10-12-2024 CNOV Office Visit (FAMPWS ) FAUSTOERWIN Paul ([id number]) 1995 F Date Time Provider Department 10/12/24 7:40 AM [facility] During your visit today, we recorded the following information about you: Temperature Pulse Respiration Blood pressure 97.5 degrees 84/minute 20/minute 120/80 Weight Last Period 85.3 kg 09/27/24 Kaden Meyer DO 10/12/2024 8:13 AM Signed CC: Erwin Hunter Dave is a 29 year old female who presents to the office for URI symptoms HPI: URI symptoms for the last 2 days, nasal congestion, fever up to 103F and headache which she feels triggered a migraine and associated nausea symptoms. Now with dry ticklish cough. +fatigue,muscle aches, sweats and chills symptoms as well. No vomiting, no diarrhea. No ear pain, + PND and mild sore throat. +sick contacts PAST MEDICAL HISTORY Diagnosis Date Adjustment disorder 12/28/2012 Anxiety 12/28/2012 Gallstones with obstruction of gallbladder 2003 resolved (post surgery) Gestational diabetes mellitus, class A1 06/11/2022 Ill-defined closed fractures of upper limb 2004 Kidney calculus 07/25/2013 evaluated by urology Knee pain 06/08/2013 resolved Ovarian cyst 07/25/2013 resolved PMH - PAST MEDICAL HISTORY OF 05-02-2001 normal color vision Pneumonia 07/25/2013 bilateral lungs Respiratory syncytial virus (RSV) resolved Seasonal allergies 06/08/2013 thyroid nodule PAST SURGICAL HISTORY Procedure Laterality Date DELIVERY ONLY 08/14/2022 LTCS CHOLEYCYSTOGRAM GALL BLADDER 2004 removal NEPHROLITHOTOMY REMOVAL STAGE 1 06/12/2018 TONSILLECTOMY AND ADENOIDECTOMY TYMPANOSTOMY LOCAL/TOPICAL ANESTHESIA 02/1997 TYMPANOSTOMY LOCAL/TOPICAL ANESTHESIA 08/1999 Current Outpatient Medications Medication Sig sertraline (ZOLOFT) 100 mg tablet Take 1 tablet by mouth once daily. No current facility-administered medications for this visit. ALLERGIES Allergen Reactions Rocephin [Ceftriaxo* Hives, Shortness of Breath Social History Tobacco Use Smoking status: Never Smokeless tobacco: Never Tobacco comments: pt does not smoke Vaping Use Vaping status: Never Used Substance Use Topics Alcohol use: Not Currently Comment: occasional Drug use: No ROS: See HPI PE: BP 120/80 Pulse 84 Temp (Src) 97.5 (Temporal) Resp 20 Wt 188 lb (85.3kg) LMP 09/27/2024 Gen: fatigued appearing, intermittent cough, slightly pale, visible chills in office. HEENT: PERRLA, EOMs intact b/l, nares with congestion and clear drainage, pharynx without erythema, exudate, lesions, + clear drainage. Uvula midline. EAC wnl, TM with serous effusion Neck: No LAD, no thyromegaly, no meningismus. CV: RRR, no murmur Lungs: CTA b/l, no wheezing Skin: No rashes, lesions, or wounds on exposed skin. No edema, normal pulses ASSESSMENT/PLAN: 1. URI, acute - ICD9: 465.9, ICD10: J06.9 (primary diagnosis) - Discussed viral etiology and rationale for treatment. - Symptomatic treatment with prn analgesia - Supportive care with fluids and rest - COVID AND INFLUENZA A/B AND RSV PCR, ROUTINE - AZITHROMYCIN 250 MG TABLET - DOXYCYCLINE HYCLATE 100 MG CAPSULE - OSELTAMIVIR 75 MG CAPSULE 2. Fever, unspecified fever cause - ICD9: 780.60, ICD10: R50.9 Check viral labs May need tamiflu- suspect flu A or RSV - COVID AND INFLUENZA A/B AND RSV PCR, ROUTINE - OSELTAMIVIR 75 MG CAPSULE 3. Acute cough - ICD9: 786.2, ICD10: R05.1 Check viral labs May need tamiflu- suspect flu A or RSV - COVID AND INFLUENZA A/B AND RSV PCR, ROUTINE - AZITHROMYCIN 250 MG TABLET - DOXYCYCLINE HYCLATE 100 MG CAPSULE - OSELTAMIVIR 75 MG CAPSULE 4. Nausea - ICD9: 787.02, ICD10: R11.0 Check viral labs May need tamiflu- suspect flu A or RSV - COVID AND INFLUENZA A/B AND RSV PCR, ROUTINE - ONDANSETRON 4 MG DISINTEGRATING TABLET Kaden Meyer DO Return if no improvement. Follow up with Kaden Meyer DO. To ER if develops chest pain, shortness of breath. Discussed risks, benefits, alternatives, and potential side effects of medications. Patient/Guardian expressed understanding and agreed with the plan. See patient instructions. Kaden Meyer DO [address] [place] [address] Allergies As of Date: 10/12/2024 Noted Allergy Reaction ROCEPHIN (CEFTRIAXONE) 06/18/2005 4 - Hives 12 - Shortness of Breath Date Reviewed: 10/12/2024 Reviewed by: Lalit Gillette LPN - Fully Assessed Reason for Visit: Fever [47] Cmt: Bodyaches, chills, fever Primary Visit Diagnosis:URI, acute [J06.9] Other Visit Diagnoses:Fever, unspecified fever cause [R50.9] Acute cough [R05.1] Nausea [R11.0] Order(s):sertraline (ZOLOFT) 100 mg tabletTake 1 tablet by mouth once daily.Disp: 90 tabletRfl: 1 COVID AND INFLUENZA A/B AND RSV PCR, ROUTINE [SQCVFLRS] Order #: [id number]. #:[id number] (more content not included)... Normal [facility] COVID AND INFLUENZA A/B AND RSV PCR, ROUTINEon 10-12-2024 SARS-CoV-2 (COVID-19) RNA ALVERTO+probe Ql (Unsp spec) SARS-COV-2 (AGENT OF COVID-19) RNA: Not detected INFLUENZA A RNA: Detected INFLUENZA B RNA: Not detected RESPIRATORY SYNCYTIAL VIRUS (RSV) RNA: Not detected Abnormal [facility] Comment on above: Performed By: #### 2 532-0, 3084-1, 37032-0 #### [facility] CLIA [id number] [address] [place] [address] [place] Progest SerPl-mCncon 024 Progesterone [Mass/Vol] 8.1 ng/mL Normal See comment [facility] Comment on above: Order Comment: Speci men Type: BLOOD SPECIMEN Ordering Facility: [facility] Address: [address] [place] [address] Result Comment: Mens trual Cycle Progesterone Reference Ranges: Follicular: <1.0 ng/mL Ovulation: <12.1 ng/mL Luteal: 1.8 to 23.9 ng/mL. Progesterone Reference Ranges vary by gestational period: First Trimester: 11.0 to 44.3 ng/mL Second Trimester: 25.4 to 83.3 ng/mL Third Trimester: 58.7 to 214 ng/mL Post menopausal Progesterone: <0.5 ng/mL Reference: 1. Progesterone (Progesterone III) [package insert V 1.0 Nigerian]. [facility], [place], [place]. June 2015. Performed By: #### 2 532-0, 3084-1, 94141-5 #### [facility] CLIA [id number] [address] [place] [address] [place] No Panel Informationon 09-11 [facility] PROGESTERONEon 09-11-2024 Progesterone [Mass/Vol] 0.3 ng/mL See comment [facility] Comment on above: Menstrual Cycle Prog esterone Reference Ranges: Follicular: <1.0 ng/mL Ovulation: <12.1 ng/mL Luteal: 1.8 to 23.9 ng/mL. Progesterone Reference Ranges vary by gestational period: First Trimester: 11.0 to 44.3 ng/mL Second Trimester: 25.4 to 83.3 ng/mL Third Trimester: 58.7 to 214 ng/mL Post menopausal Progesterone: <0.5 ng/mL Reference: 1. Progesterone (Progesterone III) [package insert V 1.0 Nigerian]. [facility], [place], [place]. June 2015. Progest SerPl-mCncon 024 Progesterone [Mass/Vol] 0.3 ng/mL Normal See comment [facility] Comment on above: Order Comment: Speci men Type: BLOOD SPECIMEN Ordering Facility: [facility] Address: [address] [place] [address] Result Comment: Mens trual Cycle Progesterone Reference Ranges: Follicular: <1.0 ng/mL Ovulation: <12.1 ng/mL Luteal: 1.8 to 23.9 ng/mL. Progesterone Reference Ranges vary by gestational period: First Trimester: 11.0 to 44.3 ng/mL Second Trimester: 25.4 to 83.3 ng/mL Third Trimester: 58.7 to 214 ng/mL Post menopausal Progesterone: <0.5 ng/mL Reference: 1. Progesterone (Progesterone III) [package insert V 1.0 Nigerian]. [facility], [place], [place]. June 2015. Performed By: #### 2 532-0, 3084-1, 90789-6 #### [facility] CLIA [id number] [address] [place] [address] [place] THYROID STIMULATING HORMONEo n 09-11-2024 TSH Qn 1.100 m[IU]/L [facility] Comment on above: If the patient is pr egnant, TSH reference range varies by gestational period: First Trimester (weeks 9-12): 0.180-2.990 mIU/L Second Trimester: 0.110-3.980 mIU/L Third Trimester: 0.480-4.710 mIU/L Romeo Sun et al. A Practical Approach for the Verifications and Determination of Site- and Trimester-Specific Reference Intervals for Thyroid Function tests in . Thyroid, 2019:29:3:412-420. Unruly Paul, et al. 2017 Guidelines of the [place] Thyroid Association for the Diagnosis and Management of Thyroid Disease during and the . Thyroid, 2017:27:3:315-389. TSH Qnon 09-11-2024 Interpretation and review of laboratory results Normal [facility] TSH SerPl-aCncon 09-11-2024 TSH Qn 1.100 m[IU]/L Normal 0.270-4.200 [facility] Comment on above: Order Comment: Speci men Type: BLOOD SPECIMEN Ordering Facility: [facility] Address: [address] [place] [address] Result Comment: If t he patient is , TSH reference range varies by gestational period: First Trimester (weeks 9-12): 0.180-2.990 mIU/L Second Trimester: 0.110-3.980 mIU/L Third Trimester: 0.480-4.710 mIU/L Romeo Snu et al. A Practical Approach for the Verifications and Determination of Site- and Trimester-Specific Reference Intervals for Thyroid Function tests in . Thyroid, 2019:29:3:412-420. Unruly E, et al. 2017 Guidelines of the Citizen [place] Thyroid Association for the Diagnosis and Management of Thyroid Disease during and the . Thyroid, 2017:27:3:315-389. Performed By: #### 2 532-0, 3084-1, 15150-4 #### [facility] CLIA [id number] [address] [place], [place] [address] [place] [address] [place] [facility] 09-10-2024 CNPN Telephone (OBGYWM) ERWIN BALDWIN ([id number]) 1995 F Date Time Provider Department 09/10/24 IVY ALBARRAN OBSHIVAWAnuj During your visit today, we recorded the following information about you: Selina Browne LPN 09/10/2024 12:57 PM Signed Patient has appointment on 10/14/2024 to f/u d/t trying to conceive for over 1 year. Patient asking if any labs are typically ordered for the appointment and if so could they be ordered now and follow up on at appointment. Patient could not get an appointment this year to f/u. Patient has insurance deductible met for the year and would like to get any labs drawn this year if possible. Ivy Albarran MD 09/10/2024 4:51 PM Signed Will order labs Day 21 progesterone and TSH Make sure she does it on day 21 of cycle. Can't order anything else until she is assessed. Hellen Snyder RN 09/13/2024 9:39 AM Signed Spoke with patient. She had her labs done over the weekend. Cycle day 21 will be this Friday. Can you please file a new order. Pending POONAM Kirkpatrick Deidre, MD 09/13/2024 11:47 AM Signed ordered Allergies As of Date: 09/10/2024 Noted Allergy Reaction ROCEPHIN (CEFTRIAXONE) 06/18/2005 4 - Hives 12 - Shortness of Breath Date Reviewed: 08/06/2024 Reviewed by: Avani Portillo MA - Fully Assessed Reason for Visit: Patient Question [0747] Primary Visit Diagnosis:Female infertility [N97.9] Order(s):THYROID STIMULATING HORMONE [SQTSH] Order #: [id number] FUTURE PROGESTERONE [SQPROG] Order #: [id number] FUTURE PROGESTERONE [SQPROG] Order #: [id number] FUTURE Prescriptions as of 09/13/2024 - sertraline (ZOLOFT) 100 mg tablet Take 1 tablet by mouth once daily. Problem List As Of Date 09/10/2024 Noted Resolved Adjustment disorder [F43.20] 12/28/2012 Anxiety [F41.9] 12/28/2012 Seasonal allergies [J30.2] 06/08/2013 IT band syndrome [M76.30] 07/05/2013 Ovarian cyst [N83.209] 07/25/2013 08/11/2015 Kidney calculus [N20.0] 07/25/2013 Routine physical examination [Z00.00] 06/19/2018 10/15/2018 Thyromegaly [E01.0] 06/19/2018 Fatigue [R53.83] 06/19/2018 Family history of thyroid disease [Z83.49] 06/19/2018 Nephrolithiasis [N20.0] 06/19/2018 Bloating [R14.0] 03/08/2020 EMILEE (generalized anxiety disorder) [F41.1] 03/08/2020 Elevated fasting glucose [R73.01] 03/08/2020 Thyroid nodule [E04.1] 03/08/2020 History of anxiety [Z86.59] 12/13/2021 History of thyroid nodule [Z86.39] 12/13/2021 Low-lying placenta [O44.40] 03/28/2022 05/29/2022 COVID-19 affecting in third trimester*05/29/2022 Abnormal glucose complicating [O99.81*05/29/2022 Gestational diabetes mellitus, class A1 [O24.41*06/11/2022 09/25/2022 Encounter Status:Closed by HELLEN SNYDER on 09/13/24 [facility] STEPANOVmaciej 08-06-2024 CNOV Office Visit (UCWSTR ) FAUSTOERWIN Paul ([id number]) 1995 F Date Time Provider Department 08/06/24 7:30 PM [facility] During your visit today, we recorded the following information about you: Temperature Pulse Respiration Blood pressure 98.2 degrees 74/minute 18/minute 120/84 Weight 85.4 kg Micah Mccarty APRN.CNP 08/06/2024 7:41 PM Signed CC: Patient presents with: Sore Throat: Cough, congestion, R eye redness and soreness x1 week HPI: Erwin Baldwin is a 29 year old female who presents to the office with complaint of head congestion, cough, nonproductive, and sore throat for a week. Symptoms are worsening Associated symptoms includes body aches. Denies nausea, vomiting , and diarrhea. Treatments tried include nothing so far. with no relief of symptoms. Sick contacts: unknown. History of asthma, frequent episodes of bronchitis, chronic bronchitis, bronchiectasis or COPD: No Smoker: No Seasonal/environmental allergies: No The ROS is otherwise negative. The patient's pmh, medications, allergies, and past visits are reviewed. PHYSICAL EXAM: BP 120/84 Pulse 74 Temp 36.8 ?C (98.2 ?F) Resp 18 Wt 85.4 kg (188 lb 4.4 oz) LMP 10/29/2023 (Exact Date) SpO2 96% BMI 33.78 kg/m? General appearance: alert, cooperative, pleasant, in no acute distress Head: Normocephalic Eyes: EOM's intact, conjunctiva pink and moist, no icterus, sclera white, non-injected on left right conjunctiva injected. Ears: Right ear: External ear/canal- Normal, TM - erythematous. Left ear: External ear/canal- Normal, TM - clear with good landmarks Oropharynx:moist without lesions, No erythema, exudates or tonsillar hypertrophy. Heart: Negative. RRR without obvious murmur, gallop, or rubs. No ectopy. Lungs: clear to auscultation, without rales or wheeze, good air exchange PAST MEDICAL HISTORY Diagnosis Date Adjustment disorder 12/28/2012 Anxiety 12/28/2012 Gallstones with obstruction of gallbladder 2003 resolved (post surgery) Gestational diabetes mellitus, class A1 06/11/2022 Ill-defined closed fractures of upper limb 2004 Kidney calculus 07/25/2013 evaluated by urology Knee pain 06/08/2013 resolved Ovarian cyst 07/25/2013 resolved PMH - PAST MEDICAL HISTORY OF 05-02-2001 normal color vision Pneumonia 07/25/2013 bilateral lungs Respiratory syncytial virus (RSV) resolved Seasonal allergies 06/08/2013 thyroid nodule PAST SURGICAL HISTORY Procedure Laterality Date DELIVERY ONLY 08/14/2022 LTCS CHOLEYCYSTOGRAM GALL BLADDER 2004 removal NEPHROLITHOTOMY REMOVAL STAGE 1 06/12/2018 TONSILLECTOMY AND ADENOIDECTOMY TYMPANOSTOMY LOCAL/TOPICAL ANESTHESIA 02/1997 TYMPANOSTOMY LOCAL/TOPICAL ANESTHESIA 08/1999 ALLERGIES Rocephin [Ceftriaxone] MEDICATIONS sertraline (ZOLOFT) 100 mg tablet Take 1 tablet by mouth once daily. FAMILY HISTORY Problem Relation Age of Onset Heart Mother Thyroid Mother thyroid cancer other (Hypotension) Mother other (Migraine) Mother other (HELLP) Mother Hypertension Father No Known Problems Brother Thyroid Maternal Grandmother Hypertension Maternal Grandmother Breast Cancer Maternal Grandmother 73 Hypertension Maternal Grandfather Diabetes Maternal Grandfather Heart Maternal Grandfather other (Migraine) Maternal Grandfather Heart Paternal Grandmother Thyroid Paternal Grandmother No Known Problems Paternal Grandfather Thyroid Maternal Aunt other (Migraine) Maternal Uncle other (Migraine) Other Maternal cousin Social History Tobacco Use Smoking status: Never Smokeless tobacco: Never Tobacco comments: pt does not smoke Vaping Use Vaping status: Never Used Substance Use Topics Alcohol use: Not Currently Comment: occasional Drug use: No ASSESSMENT/PLAN: 1. Respiratory infection - ICD9: 519.8, ICD10: J98.8 (primary diagnosis) - AZITHROMYCIN 250 MG TABLET 2. [place] eye disease of right eye - ICD9: 372.03, ICD10: H10.021 - POLYMYXIN B SULFATE 10,000 UNIT-TRIMETHOPRIM 1 MG/ML EYE DROPS Prescription instructions reviewed with patient as applicable. Potential red flag symptoms discussed with the patient. Reviewed appropriate action plan to take if red flag symptoms occur. Patient agreeable to treatment plan. Micah Mccarty APRN.CONTRACTS MANAGER Allergies As of Date: 08/06/2024 Noted Allergy Reaction ROCEPHIN (CEFTRIAXONE) 06/18/2005 4 - Hives 12 - Shortness of Breath Date Reviewed: 08/06/2024 Reviewed by: Avani Portillo MA - Fully Assessed Reason for Visit: Sore Throat [200] Cmt: Cough, congestion, R eye redness and soreness x1 week Primary Visit Diagnosis:Respiratory infection [J98.8] Other Visit Diagnosis:[place] eye disease of right eye [H10.021] Order(s):azithromycin (ZITHROMAX) 250 mg tabletTake 2 tablets by mouth once daily for 1 day, THEN 1 tablet once daily for 4 days.Disp: 6 tabletR (more content not included)... Normal [facility] STREP A MOLECULAR (POC)on Procedural Control Valid [facility] Strep A (POCT) Negative Negative [facility] Basophil percentageon 2021 WBC (Bld) [#/Vol] 14.1 10*3/uL 4.4-11.0 [facility] Work Phone: Blood erythrocytes count (nu mber/volume)on 08-15-2022 RBC (Bld) [#/Vol] 3.01 10*6/uL 4.2-5.4 [facility] Work Phone: Blood hemoglobin measurement (mass/volume)on 08-15-2022 Hemoglobin (Bld) [Mass/Vol] 8.8 g/dL 12.0-15.0 [facility] Work Phone: Blood platelet mean volumeon 08-15-2022 Platelet mean volume (Bld) [Entitic vol] 11.2 fL 6.2-12.0 [facility] Work Phone: Determination of erythrocyte mean corpuscular volume (MCV)on 08-15-2022 MCV (RBC) [Entitic vol] 89.7 fL 81-99 [facility] Work Phone: Glucose Glucometer (BldC) [M ass/Vol]on 08-15-2022 Glucose [Mass/Vol] 69 mg/dL 74-106 [facility] Work Phone: Comment on above: MANAGEMENT OF PATIEN T CARE PER NURSING PROTOCOL Hematocrit Auto (Bld) [Volum e fraction]on 08-15-2022 Hematocrit (Bld) [Volume fraction] 27.0 % 37-47 [facility] Work Phone: Laboratory - Hematology and Cell countson 08-15-2022 Erythrocyte distribution width (RBC) [Entitic vol] 42.5 fL 35.1-43.9 [facility] Work Phone: Erythrocyte distribution width (RBC) [Ratio] 13.2 % 11.6-14.6 [facility] Work Phone: MCH (RBC) [Entitic mass] 29.2 pg 27.0-32.0 [facility] Work Phone: MCHC Auto (RBC) [Mass/Vol]on 08-15-2022 MCHC (RBC) [Mass/Vol] 32.6 g/dL 32-36 [facility] Work Phone: [phone] Platelets bldon 08-15-2022 Platelets (Bld) [#/Vol] 172 10*3/uL 150-450 [facility] Work Phone: Absolute lymphocyte counton 08-14-2022 Lymphocytes Auto (Unsp spec) [#/Vol] 1.90 10*3/uL 0.83-4.51 [facility] Work Phone: [phone] Basophil percentageon 2021 Basophils/100 WBC (Bld) 0.2 % 0-1 [facility] Work Phone: Eosinophils/100 WBC (Bld) 0.5 % 0-5 [facility] Work Phone: [phone] Neutrophils (Bld) [#/Vol] 8.5 10*3/uL 2.0-7.7 [facility] Work Phone: Neutrophils/100 WBC (Bld) 74.1 % 47-70 [facility] Work Phone: Blood lymphocytes/100 leukoc yteson 08-14-2022 Lymphocytes/100 WBC (Bld) 16.5 % 19-41 [facility] Work Phone: [phone] Blood monocytes/100 leukocyt eson 08-14-2022 Monocytes/100 WBC (Bld) 8.1 % 0-10 [facility] Work Phone: Laboratory - Hematology and Cell countson 08-14-2022 Immature granulocytes/100 WBC (Bld) 0.600 % 0.0-0.9 [facility] Work Phone: Comment on above: IG% - Immature Granu locytes (promyelocytes, myelocytes and metamyelocytes) > 1% indicates that a LEFT SHIFT is Present. Nucleated RBC/100 WBC (Bld) [Ratio] 0 % 0-5 [facility] Work Phone: URINE OB DIP B/Oon 2 Glucose Ql (U) Negative Neg mg/dL [facility] Protein.monoclonal (U) [Mass/Vol] Negative Neg mg/dL [facility] URINE OB DIP B/Oon 2 Glucose Ql (U) Negative Neg mg/dL [facility] Protein.monoclonal (U) [Mass/Vol] Negative Neg mg/dL [facility] OBSTETRIC ULTRASOUND WHIon 1 09-23-2021 [facility] URINE OB DIP B/Oon 2 Glucose Ql (U) Negative Neg mg/dL [facility] Protein.monoclonal (U) [Mass/Vol] Negative Neg mg/dL [facility] Basophil percentageon 2021 Basophil percentage 10-25 SEEN /hpf 0-5 [facility] Work Phone: Bilirubin Test strip Ql (U)o n 07-17-2022 Bilirubin Ql (U) Negative Negative [facility] Work Phone: Ketones Test strip Ql (U)on 07-17-2022 Ketones Ql (U) 150 mg/dl Negative [facility] Work Phone: Comment on above: CRITICAL VALUE *HCRI TICAL VALUE VERIFIED. CALLED TO DWAINE LEVIN (WPOUT)07/17/22 [id number] Jan Solano.RESULTS READ BACK BY SAME. Mucus LM Ql (Urine sed)on Mucus Ql (Urine sed) 0 SEEN /hpf [facility] Work Phone: Nitrite Test strip Ql (U)on 07-17-2022 Nitrite Ql (U) Negative Negative [facility] Work Phone: Protein Test strip Ql (U)on 07-17-2022 Protein Ql (U) 15 mg/dl Negative [facility] Work Phone: Squamous epithelial cells de tection in urine sediment by light microscopyon 07-17-2022 Epithelial cells.squamous LM Ql (Urine sed) 0-5 SEEN /hpf 5-10 [facility] Work Phone: Urine blood detectionon 06-23 RBC Ql (U) 150 /ul Negative [facility] Work Phone: RBC Ql (U) 10-25 SEEN /hpf 0-5 [facility] Work Phone: Urine clarityon 07-17-2022 Clarity (U) Sl. Cloudy Clear [facility] Work Phone: Urine color determinationon 07-17-2022 Color (U) Yellow Yellow [facility] Work Phone: Urine glucose detectionon Glucose Ql (U) Normal mg/dl Normal [facility] Work Phone: Urine leukocyte esterase det ection by dipstickon 07-17-2022 Leukocyte esterase Test strip Ql (U) 100 /ul Negative [facility] Work Phone: Urine pHon 07-17-2022 pH (U) 6.5 [pH] 5.0 - 8.0 [facility] Work Phone: Urine sediment bacteria coun t by microscopy (number/high power field)on 07-17-2022 Bacteria LM.HPF (Urine sed) [#/Area] 2 /[HPF] None Seen [facility] Work Phone: Urine specific gravity measu rementon 07-17-2022 Specific gravity (U) [Rel density] 1.015 1.002-1.030 [facility] Work Phone: Urobilinogen Auto test strip Ql (U)on 07-17-2022 Urobilinogen Ql (U) Normal mg/dl Normal [facility] Work Phone: URINE OB DIP B/Oon 2 Glucose Ql (U) Negative Neg mg/dL [facility] Protein.monoclonal (U) [Mass/Vol] Negative Neg mg/dL [facility] URINE OB DIP B/Oon 2 Glucose Ql (U) Negative Neg mg/dL [facility] Protein.monoclonal (U) [Mass/Vol] Negative Neg mg/dL [facility] OBSTETRIC ULTRASOUND WHIon 0 05-29-2022 [facility] URINE OB DIP B/Oon 2 Glucose Ql (U) Negative Neg mg/dL [facility] Protein.monoclonal (U) [Mass/Vol] Negative Neg mg/dL [facility] OBSTETRIC ULTRASOUND WHIon 0 03-28-2022 [facility] URINE OB DIP B/Oon 2 Glucose Ql (U) Negative Neg mg/dL [facility] Protein.monoclonal (U) [Mass/Vol] Negative Neg mg/dL [facility] URINE OB DIP B/Oon 2 Glucose Ql (U) Negative Neg mg/dL [facility] Protein.monoclonal (U) [Mass/Vol] Negative Neg mg/dL [facility] Basophil percentageon 2021 Basophil percentage 0-5 SEEN /hpf [facility] Work Phone: Bilirubin Test strip Ql (U)o n 02-04-2022 Bilirubin Ql (U) Negative Negative [facility] Work Phone: Ketones Test strip Ql (U)on 02-04-2022 Ketones Ql (U) 150 mg/dl Negative [facility] Work Phone: Comment on above: CRITICAL VALUE *H Mucus LM Ql (Urine sed)on Mucus Ql (Urine sed) 1+ /hpf [facility] Work Phone: Nitrite Test strip Ql (U)on 02-04-2022 Nitrite Ql (U) Negative Negative [facility] Work Phone: Protein Test strip Ql (U)on 02-04-2022 Protein Ql (U) 30 mg/dl Negative [facility] Work Phone: Squamous epithelial cells de tection in urine sediment by light microscopyon 02-04-2022 Epithelial cells.squamous LM Ql (Urine sed) 0-5 SEEN /hpf [facility] Work Phone: Urine blood detectionon 01-20 RBC Ql (U) Negative Negative [facility] Work Phone: RBC Ql (U) Not Reportable [facility] Work Phone: Urine clarityon 02-04-2022 Clarity (U) Clear Clear [facility] Work Phone: Urine color determinationon 02-04-2022 Color (U) Yellow Yellow [facility] Work Phone: Urine glucose detectionon Glucose Ql (U) Normal mg/dl Normal [facility] Work Phone: Urine leukocyte esterase det ection by dipstickon 02-04-2022 Leukocyte esterase Test strip Ql (U) 25 /ul Negative [facility] Work Phone: Urine pHon 02-04-2022 pH (U) 6.0 [pH] [facility] Work Phone: Urine sediment bacteria coun t by microscopy (number/high power field)on 02-04-2022 Bacteria LM.HPF (Urine sed) [#/Area] 2 /[HPF] None Seen [facility] Work Phone: Urine specific gravity measu rementon 02-04-2022 Specific gravity (U) [Rel density] 1.015 [facility] Work Phone: Urobilinogen Auto test strip Ql (U)on 02-04-2022 Urobilinogen Ql (U) Normal mg/dl Normal [facility] Work Phone: CBC panel Auto (Bld)on 01-30 Erythrocyte distribution width (RBC) [Ratio] 11.4 % Low 11.5 - 15.0 % [facility] Hematocrit (Bld) [Volume fraction] 41.4 % 36.0 - 46.0 % [facility] Hemoglobin (Bld) [Mass/Vol] 14.5 g/dL 11.5 - 15.5 g/dL [facility] MCH (RBC) [Entitic mass] 29.8 pg 26.0 - 34.0 pg [facility] MCHC (RBC) [Mass/Vol] 35.0 g/dL 30.5 - 36.0 g/dL [facility] MCV (RBC) [Entitic vol] 85.0 fL 80.0 - 100.0 fL [facility] Nucleated RBC (Bld) [#/Vol] 10*3/uL <0.01 k/uL [facility] Platelet mean volume (Bld) [Entitic vol] 10.6 fL 9.0 - 12.7 fL [facility] Platelets (Bld) [#/Vol] 255 10*3/uL 150 - 400 k/uL [facility] RBC (Bld) [#/Vol] 4.87 10*6/uL 3.90 - 5.2 0 m/uL [facility] WBC (Bld) [#/Vol] 12.31 10*3/uL High 3.70 - 11 .00 k/uL [facility] URINE OB DIP B/Oon 2 Glucose Ql (U) Negative Neg mg/dL [facility] Protein.monoclonal (U) [Mass/Vol] Negative Neg mg/dL [facility] Culture, urine Bacteria identified Cx Nom (U) Culture exhibits no growth. [facility] Work Phone: Vital Signs Date Time Vital Sign Value Performing Clinician Facility 06-07-2025 15:29-0400 Body mass index (BMI) [Ratio] 35.61 kg/m2 Jennifer Delaney APRN.CNM Work Phone: [facility] 06-07-2025 15:29-0400 Body weight 88.91 kg Jennifer Delaney APRN.CNM Work Phone: [facility] 06-07-2025 15:29-0400 Diastolic blood pressure 70 mm[Hg] Jennifer Delaney APRN.CNM Work Phone: [facility] 06-07-2025 15:29-0400 Systolic blood pressure 128 mm[Hg] Jennifer Delaney APRN.CNM Work Phone: [facility] 05-30-2025 16:20-0400 Body mass index (BMI) [Ratio] 35.43 kg/m2 Ivy Hernandez MD Work Phone: [facility] 05-30-2025 16:20-0400 Body weight 88.45 kg Ivy Hernandez MD Work Phone: [facility] 05-30-2025 16:20-0400 Diastolic blood pressure 70 mm[Hg] Ivy Hernandez MD Work Phone: [facility] 05-30-2025 16:20-0400 Systolic blood pressure 120 mm[Hg] Ivy Hernandez MD Work Phone: [facility] 05-02-2025 08:30-0400 Body mass index (BMI) [Ratio] 34.34 kg/m2 Ivy Hernandez MD Work Phone: [facility] 05-02-2025 08:30-0400 Body weight 85.73 kg Ivy Hernandez MD Work Phone: [facility] 05-02-2025 08:30-0400 Diastolic blood pressure 78 mm[Hg] Ivy Hernandez MD Work Phone: [facility] 05-02-2025 08:30-0400 Systolic blood pressure 120 mm[Hg] Ivy Hernandez MD Work Phone: [facility] 04-04-2025 08:11-0400 Body mass index (BMI) [Ratio] 33.94 kg/m2 Ivy Hernandez MD Work Phone: [facility] 04-04-2025 08:11-0400 Body weight 84.73 kg Ivy Hernandez MD Work Phone: [facility] 04-04-2025 08:11-0400 Diastolic blood pressure 68 mm[Hg] Ivy Hernandez MD Work Phone: [facility] 04-04-2025 08:11-0400 Systolic blood pressure 102 mm[Hg] Ivy Hernandez MD Work Phone: [facility] 02-28-2025 10:23-0400 Body mass index (BMI) [Ratio] 33.98 kg/m2 vIy Ventura MD Work Phone: [facility] 02-28-2025 10:23-0400 Body weight 84.82 kg Ivy Ventura MD Work Phone: [facility] 02-28-2025 10:23-0400 Diastolic blood pressure 62 mm[Hg] Ivy Ventura MD Work Phone: [facility] 02-28-2025 10:23-0400 Systolic blood pressure 102 mm[Hg] Ivy Ventura MD Work Phone: [facility] 01-31-2025 08:15-0400 Body height 158 cm Rowena Bluewater BOTTLE CAPPING MACHINE OPERATOR.CONTRACTS MANAGER Work Phone: [facility] 01-31-2025 08:15-0400 Body mass index (BMI) [Ratio] 34.89 kg/m2 Rowena Bluewater BOTTLE CAPPING MACHINE OPERATOR.CONTRACTS MANAGER Work Phone: [facility] 01-31-2025 08:15-0400 Body weight 87.09 kg Rowena Bluewater BOTTLE CAPPING MACHINE OPERATOR.CONTRACTS MANAGER Work Phone: [facility] 01-31-2025 08:15-0400 Diastolic blood pressure 64 mm[Hg] Rowena Bluewater BOTTLE CAPPING MACHINE OPERATOR.CONTRACTS MANAGER Work Phone: [facility] 01-31-2025 08:15-0400 Systolic blood pressure 118 mm[Hg] Rowena Bluewater BOTTLE CAPPING MACHINE OPERATOR.CONTRACTS MANAGER Work Phone: [facility] 12-08-2024 17:20-0400 Body height 158 cm Kaden Meyer DO Work Phone: [facility] 12-08-2024 17:20-0400 Body mass index (BMI) [Ratio] 34.16 kg/m2 Kaden Meyer DO Work Phone: [facility] 12-08-2024 17:20-0400 Body temperature 97.59 [degF] Kaden Meyer DO Work Phone: [facility] 12-08-2024 17:20-0400 Body weight 85.28 kg Kaden Meyer DO Work Phone: [facility] 12-08-2024 17:20-0400 Diastolic blood pressure 60 mm[Hg] Kaden Meyer DO Work Phone: [facility] 12-08-2024 17:20-0400 Heart rate 80 /min Kaden Meyer DO Work Phone: [facility] 12-08-2024 17:20-0400 Respiratory rate 16 /min Kaden Meyer DO Work Phone: [facility] 12-08-2024 17:20-0400 Systolic blood pressure 100 mm[Hg] Kaden Meyer DO Work Phone: [facility] 10-14-2024 13:50-0500 Body mass index (BMI) [Ratio] 33.01 kg/m2 Ivy Hernandez MD Work Phone: [facility] 10-14-2024 13:50-0500 Body weight 83.46 kg Ivy Hernandez MD Work Phone: [facility] 10-12-2024 07:38-0500 Body mass index (BMI) [Ratio] 33.73 kg/m2 Kaden Meyer DO Work Phone: [facility] 10-12-2024 07:38-0500 Body temperature 97.5 [degF] Kaden Meyer DO Work Phone: [facility] 10-12-2024 07:38-0500 Body weight 85.28 kg Kaden Meyer DO Work Phone: [facility] 10-12-2024 07:38-0500 Diastolic blood pressure 80 mm[Hg] Kaden Meyer DO Work Phone: [facility] 10-12-2024 07:38-0500 Heart rate 84 /min Kaden Meyer DO Work Phone: [facility] 10-12-2024 07:38-0500 Respiratory rate 20 /min Kaden Meyer DO Work Phone: [facility] 10-12-2024 07:38-0500 Systolic blood pressure 120 mm[Hg] Kaden Meyre DO Work Phone: [facility] 08-06-2024 19:30-0500 Body mass index (BMI) [Ratio] 33.78 kg/m2 Jennifer Robertson BOTTLE CAPPING MACHINE OPERATOR.CONTRACTS MANAGER Work Phone: [facility] 08-06-2024 19:30-0500 Body temperature 98.2 [degF] Jennifer Robertson BOTTLE CAPPING MACHINE OPERATOR.CONTRACTS MANAGER Work Phone: [facility] 08-06-2024 19:30-0500 Body weight 85.4 kg Jennifer Robertson BOTTLE CAPPING MACHINE OPERATOR.CONTRACTS MANAGER Work Phone: [facility] 08-06-2024 19:30-0500 Diastolic blood pressure 84 mm[Hg] Jennifer Robertson BOTTLE CAPPING MACHINE OPERATOR.CONTRACTS MANAGER Work Phone: [facility] 08-06-2024 19:30-0500 Heart rate 74 /min Jennifer Robertson BOTTLE CAPPING MACHINE OPERATOR.CONTRACTS MANAGER Work Phone: [facility] 08-06-2024 19:30-0500 Respiratory rate 18 /min Jennifer Robertson BOTTLE CAPPING MACHINE OPERATOR.CONTRACTS MANAGER Work Phone: [facility] 08-06-2024 19:30-0500 SaO2% (BldA) [Mass fraction] 96 % Jennifer Robertson BOTTLE CAPPING MACHINE OPERATOR.CONTRACTS MANAGER Work Phone: [facility] 08-06-2024 19:30-0500 Systolic blood pressure 120 mm[Hg] Jennifer Robertson BOTTLE CAPPING MACHINE OPERATOR.CONTRACTS MANAGER Work Phone: [facility] 11-26-2023 07:44-0500 Body height 159 cm Kaden Meyer DO Work Phone: [facility] 11-26-2023 07:44-0500 Body temperature 97 [degF] Kaden Meyer DO Work Phone: [facility] 11-26-2023 07:44-0500 Body weight 81.19 kg Kaden Meyer DO Work Phone: [facility] 11-26-2023 07:44-0500 Diastolic blood pressure 60 mm[Hg] Kaden Meyer DO Work Phone: [facility] 11-26-2023 07:44-0500 Heart rate 64 /min Kaden Meyer DO Work Phone: [facility] 11-26-2023 07:44-0500 Systolic blood pressure 96 mm[Hg] Kaden Meyer Work Phone: [facility] 09-02-2023 08:46-0500 Body height 157.5 cm Ivy Hernandez MD Work Phone: [facility] 09-02-2023 08:46-0500 Body weight 79.83 kg Ivy Hernandez MD Work Phone: [facility] 09-02-2023 08:46-0500 Diastolic blood pressure 60 mm[Hg] Ivy Hernandez MD Work Phone: [facility] 09-02-2023 08:46-0500 Systolic blood pressure 102 mm[Hg] Ivy Hernandez MD Work Phone: [facility] 06-08-2023 08:35-0400 Body temperature 99.19 [degF] Crystal Praisler-Wood BOTTLE CAPPING MACHINE OPERATOR.CONTRACTS MANAGER Work Phone: [facility] 06-08-2023 08:35-0400 Body weight 75.39 kg Crystal Praisler-Wood BOTTLE CAPPING MACHINE OPERATOR.CONTRACTS MANAGER Work Phone: [facility] 06-08-2023 08:35-0400 Diastolic blood pressure 86 mm[Hg] Crystal Praisler-Wood BOTTLE CAPPING MACHINE OPERATOR.CONTRACTS MANAGER Work Phone: [facility] 06-08-2023 08:35-0400 Heart rate 120 /min Crystal Praisler-Wood BOTTLE CAPPING MACHINE OPERATOR.CONTRACTS MANAGER Work Phone: [facility] 06-08-2023 08:35-0400 Respiratory rate 20 /min Crystal Praisler-Wood BOTTLE CAPPING MACHINE OPERATOR.CONTRACTS MANAGER Work Phone: [facility] 06-08-2023 08:35-0400 SaO2% (BldA) [Mass fraction] 99 % Crystal Praisler-Wood BOTTLE CAPPING MACHINE OPERATOR.CONTRACTS MANAGER Work Phone: [facility] 06-08-2023 08:35-0400 Systolic blood pressure 104 mm[Hg] Crystal Praisler-Wood BOTTLE CAPPING MACHINE OPERATOR.CONTRACTS MANAGER Work Phone: [facility] 05-21-2023 07:45-0400 Body weight 74.66 kg Daria Melendezman BOTTLE CAPPING MACHINE OPERATOR.CONTRACTS MANAGER Work Phone: [facility] 05-21-2023 07:45-0400 Diastolic blood pressure 80 mm[Hg] Daria Samson BOTTLE CAPPING MACHINE OPERATOR.CONTRACTS MANAGER Work Phone: [facility] 05-21-2023 07:45-0400 Heart rate 73 /min Daria Samson BOTTLE CAPPING MACHINE OPERATOR.CONTRACTS MANAGER Work Phone: [facility] 05-21-2023 07:45-0400 Respiratory rate 16 /min Daria Samson BOTTLE CAPPING MACHINE OPERATOR.CONTRACTS MANAGER Work Phone: [facility] 05-21-2023 07:45-0400 SaO2% (BldA) [Mass fraction] 97 % Daria Samson BOTTLE CAPPING MACHINE OPERATOR.CONTRACTS MANAGER Work Phone: [facility] 05-21-2023 07:45-0400 Systolic blood pressure 118 mm[Hg] Daria Samson BOTTLE CAPPING MACHINE OPERATOR.CONTRACTS MANAGER Work Phone: [facility] 04-10-2023 17:27-0400 Body temperature 97.11 [degF] Krislyn Aberegg PA Work Phone: [facility] 04-10-2023 17:27-0400 Body weight 74.3 kg Krislyn Aberegg PA Work Phone: [facility] 04-10-2023 17:27-0400 Diastolic blood pressure 72 mm[Hg] Krislyn Aberegg PA Work Phone: [facility] 04-10-2023 17:27-0400 Heart rate 78 /min Krislyn Aberegg PA Work Phone: [facility] 04-10-2023 17:27-0400 Respiratory rate 16 /min Krislyn Aberegg PA Work Phone: [facility] 04-10-2023 17:27-0400 SaO2% (BldA) [Mass fraction] 97 % Irma Aberegg PA Work Phone: [facility] 04-10-2023 17:27-0400 Systolic blood pressure 132 mm[Hg] Krislyn Aberegg PA Work Phone: [facility] 10-30-2022 14:28-0500 Body height 160 cm Kaden Meyer DO Work Phone: [facility] 10-30-2022 14:28-0500 Body temperature 97 [degF] Kaden Meyer DO Work Phone: [facility] 10-30-2022 14:28-0500 Body weight 68.49 kg Kaden Meyer DO Work Phone: [facility] 10-30-2022 14:28-0500 Diastolic blood pressure 80 mm[Hg] Kaden Meyer DO Work Phone: [facility] 10-30-2022 14:28-0500 Heart rate 84 /min Kaden Meyer DO Work Phone: [facility] 10-30-2022 14:28-0500 Respiratory rate 16 /min Kaden Meyer DO Work Phone: [facility] 10-30-2022 14:28-0500 Systolic blood pressure 120 mm[Hg] Kaden Meyer DO Work Phone: [facility] 09-25-2022 09:01-0500 Body weight 68.04 kg Ivy Hernandez MD Work Phone: [facility] 09-25-2022 09:01-0500 Diastolic blood pressure 70 mm[Hg] Ivy Hernandez MD Work Phone: [facility] 09-25-2022 09:01-0500 Systolic blood pressure 106 mm[Hg] Ivy Hernandez MD Work Phone: [facility] 08-21-2022 10:44-0500 Body weight 75.39 kg Ivy Hernandez MD Work Phone: [facility] 08-21-2022 10:44-0500 Diastolic blood pressure 70 mm[Hg] Ivy Hernandez MD Work Phone: [facility] 08-21-2022 10:44-0500 Systolic blood pressure 106 mm[Hg] Ivy Hernandez MD Work Phone: [facility] 08-16-2022 14:42-0500 Body temperature 96.6 [degF] [facility] Work Phone: 08-16-2022 14:42-0500 Diastolic blood pressure 68 mm[Hg] [facility] Work Phone: 08-16-2022 14:42-0500 Heart rate 83 /min [facility] Work Phone: 08-16-2022 14:42-0500 Respiratory rate 16 /min [facility] Work Phone: 08-16-2022 14:42-0500 SaO2% (BldA) [Mass fraction] 98 % [facility] Work Phone: 08-16-2022 14:42-0500 Systolic blood pressure 119 mm[Hg] [facility] Work Phone: 08-14-2022 09:39-0500 Body height 157.48 cm [facility] Work Phone: 08-14-2022 09:39-0500 Body mass index (BMI) [Ratio] 33.2 kg/m2 [facility] Work Phone: 08-14-2022 09:39-0500 Body weight 82.3 kg [facility] Work Phone: 08-07-2022 09:18-0500 Body weight 82.56 kg Ivy Hernandez MD Work Phone: [facility] 08-07-2022 09:17-0500 Diastolic blood pressure 79 mm[Hg] Ivy Hernandez MD Work Phone: [facility] 08-07-2022 09:17-0500 Systolic blood pressure 123 mm[Hg] Ivy Hernandez MD Work Phone: [facility] 07-31-2022 15:40-0500 Diastolic blood pressure 88 mm[Hg] Ivy Hernandez MD Work Phone: [facility] 07-31-2022 15:40-0500 Systolic blood pressure 138 mm[Hg] Ivy Hernandez MD Work Phone: [facility] 07-24-2022 08:37-0400 Body weight 83.46 kg Ivy Hernandez MD Work Phone: [facility] 07-24-2022 08:37-0400 Diastolic blood pressure 72 mm[Hg] Ivy Hernandez MD Work Phone: [facility] 07-24-2022 08:37-0400 Systolic blood pressure 110 mm[Hg] Ivy Hernandez MD Work Phone: [facility] 07-17-2022 08:30-0400 Body temperature 97.6 [degF] [facility] Work Phone: 07-17-2022 08:30-0400 Diastolic blood pressure 76 mm[Hg] [facility] Work Phone: 07-17-2022 08:30-0400 Heart rate 83 /min [facility] Work Phone: 07-17-2022 08:30-0400 Systolic blood pressure 126 mm[Hg] [facility] Work Phone: 07-17-2022 05:18-0400 Body mass index (BMI) [Ratio] 33.9 kg/m2 [facility] Work Phone: 07-17-2022 05:18-0400 Body weight 84.18 kg [facility] Work Phone: 07-17-2022 04:56-0400 SaO2% (BldA) [Mass fraction] 98 % [facility] Work Phone: 07-10-2022 09:00-0400 Body weight 83.01 kg Ivy Hernandez MD Work Phone: [facility] 07-10-2022 09:00-0400 Diastolic blood pressure 72 mm[Hg] Ivy Hernandez MD Work Phone: [facility] 07-10-2022 09:00-0400 Systolic blood pressure 118 mm[Hg] Ivy Hernandez MD Work Phone: [facility] 06-14-2022 10:44-0400 Body weight 84.37 kg Ivy Hernandez MD Work Phone: [facility] 06-14-2022 10:44-0400 Diastolic blood pressure 72 mm[Hg] Ivy Hernandez MD Work Phone: [facility] 06-14-2022 10:44-0400 Systolic blood pressure 118 mm[Hg] Ivy Hernandez MD Work Phone: [facility] 05-29-2022 08:24-0400 Body weight 83.01 kg Ivy Hernandez MD Work Phone: [facility] 05-29-2022 08:24-0400 Diastolic blood pressure 78 mm[Hg] Ivy Hernandez MD Work Phone: [facility] 05-29-2022 08:24-0400 Systolic blood pressure 118 mm[Hg] Ivy Hernandez MD Work Phone: [facility] 03-28-2022 15:51-0400 Body weight 78.93 kg Ivy Hernandez MD Work Phone: [facility] 03-28-2022 15:51-0400 Diastolic blood pressure 68 mm[Hg] Ivy Hernandez MD Work Phone: [facility] 03-28-2022 15:51-0400 Systolic blood pressure 110 mm[Hg] Ivy Hernandez MD Work Phone: [facility] 03-20-2022 17:46-0400 Body weight 78.2 kg Katt Zurawick BOTTLE CAPPING MACHINE OPERATOR.CONTRACTS MANAGER Work Phone: [facility] 03-20-2022 17:46-0400 Diastolic blood pressure 60 mm[Hg] Katt Zurawick BOTTLE CAPPING MACHINE OPERATOR.CONTRACTS MANAGER Work Phone: [facility] 03-20-2022 17:46-0400 Heart rate 64 /min Katt Zurawick BOTTLE CAPPING MACHINE OPERATOR.CONTRACTS MANAGER Work Phone: [facility] 03-20-2022 17:46-0400 Respiratory rate 16 /min Katt Zurawick BOTTLE CAPPING MACHINE OPERATOR.CONTRACTS MANAGER Work Phone: [facility] 03-20-2022 17:46-0400 Systolic blood pressure 90 mm[Hg] Katt Zurawick BOTTLE CAPPING MACHINE OPERATOR.CONTRACTS MANAGER Work Phone: [facility] 02-27-2022 10:52-0400 Body weight 76.66 kg Ivy Hernandez MD Work Phone: [facility] 02-27-2022 10:52-0400 Diastolic blood pressure 70 mm[Hg] Ivy Hernandez MD Work Phone: [facility] 02-27-2022 10:52-0400 Systolic blood pressure 112 mm[Hg] Ivy Hernandez MD Work Phone: [facility] 02-04-2022 17:33-0400 Heart rate 99 /min [facility] Work Phone: 02-04-2022 17:33-0400 Respiratory rate 18 /min [facility] Work Phone: 02-04-2022 17:33-0400 SaO2% (BldA) [Mass fraction] 99 % [facility] Work Phone: 02-04-2022 15:30-0400 Body height 157.48 cm [facility] Work Phone: 02-04-2022 15:30-0400 Body mass index (BMI) [Ratio] 31.6 kg/m2 [facility] Work Phone: 02-04-2022 15:30-0400 Body temperature 99 [degF] [facility] Work Phone: 02-04-2022 15:30-0400 Body weight 78.47 kg [facility] Work Phone: 02-04-2022 15:30-0400 Diastolic blood pressure 84 mm[Hg] [facility] Work Phone: 02-04-2022 15:30-0400 Systolic blood pressure 141 mm[Hg] [facility] Work Phone: 01-30-2022 16:11-0400 Body weight 78.93 kg Ivy Hernandez MD Work Phone: [facility] 01-30-2022 16:11-0400 Diastolic blood pressure 78 mm[Hg] Ivy Hernandez MD Work Phone: [facility] 01-30-2022 16:11-0400 Systolic blood pressure 124 mm[Hg] Ivy Hernandez MD Work Phone: [facility] Encounters Encounter Date Encounter Type Care Provider Facility Start: 09-02-2025 ambulatory Ivy Jones Facility:[facility] Start: 08-01-2025 ambulatory KADEN L MEYER Facil ity:[facility] Start: 07-28-2025 End: 07-28-2025 ambulatory KADEN L MEYER Facility:[facility] Start: 07-26-2025 End: 07-26-2025 ambulatory KADEN L MEYER Facility:[facility] Start: 07-21-2025 End: 07-21-2025 ambulatory IVYJESSICA PATTERSON HERNANDEZ Facility:[facility] Start: 07-19-2025 End: 07-19-2025 ambulatory KADEN L MEYER Facility:[facility] Start: 07-15-2025 End: 07-15-2025 ambulatory IVY HERNANDEZ Facility:[facility] Start: 07-12-2025 End: 07-12-2025 ambulatory KADEN L MEYER Facility:[facility] Start: 07-11-2025 End: 07-11-2025 ambulatory KADEN L MEYER Facility:[facility] Start: 06-27-2025 End: 06-27-2025 ambulatory KADEN L MEYER Facility:[facility] Start: 06-16-2025 End: 06-16-2025 ambulatory KADEN L MEYER Facility:[facility] Start: 06-13-2025 End: 06-13-2025 ambulatory KADEN L MEYER Facility:[facility] Start: 06-07-2025 End: 06-07-2025 Patient encounter procedure Jennifer Delaney APRN.CNM Work Phone: OB/Gynecology Comment on above: Encounter for superv ision of normal in multigravida, antepartum (HCC) (Primary Dx); 27 weeks gestation of ([facility]); headache in second trimester ([facility]); Vitreous floaters of both eyes Start: 06-07-2025 End: 06-07-2025 ambulatory KADEN L MEYER Facility:[facility] Start: 06-06-2025 End: 06-07-2025 ambulatory Ivy Hernandez MD Work Phone: OB/Gynecology Comment on above: Seeing stars? Start: 05-30-2025 End: 05-30-2025 Patient encounter procedure Ivy Hernandez MD Work Phone: OB/Gynecology Comment on above: Encounter for superv ision of normal in multigravida, antepartum (HCC) (Primary Dx); Prior macrosomia, antepartum, second trimester ([facility]); Obesity affecting in first trimester, unspecified obesity type ([facility]); Screening for diabetes mellitus; Encounter for supervision of other normal in second trimester ([facility]); 25 weeks gestation of ([facility]) Start: 05-30-2025 End: 05-30-2025 ambulatory KADEN Sun MEYER Facility:[facility] Start: 05-02-2025 End: 05-02-2025 Patient encounter procedure Ivy Hernandez MD Work Phone: OB/Gynecology Comment on above: Encounter for superv ision of normal in multigravida, antepartum (HCC) (Primary Dx); Prior macrosomia, antepartum, second trimester ([facility]); Obesity affecting in first trimester, unspecified obesity type ([facility]); History of gestational diabetes in prior , currently ([facility]); 21 weeks gestation of ([facility]) Start: 05-02-2025 End: 05-02-2025 [facility] KADEN MEYER Facility: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 Start: 04-04-2025 End: 04-04-2025 Patient encounter procedure Ivy Hernandez MD Work Phone: OB/Gynecology Comment on above: Encounter for superv ision of normal in multigravida, antepartum (HCC) (Primary Dx); Prior macrosomia, antepartum, second trimester (HCC); 17 weeks gestation of ([facility]) Start: 04-04-2025 End: 04-04-2025 ambulatory Ivy Hernandez MD Work Phone: OB/Gynecology Comment on above: - Schedule ? Start: 03-18-2025 End: 03-18-2025 Refill Kaden Sun Meyer DO Work Phone: [facility] Comment on above: Refill Request Start: 03-04-2025 End: 05-04-2025 Follow-up encounter Joelle Pantoja APRN.CNP Work Phone: OB/Gynecology Start: 02-28-2025 End: 02-28-2025 ambulatory KADEN L MEYER Facility:[facility] Start: 02-28-2025 End: 02-28-2025 Patient encounter procedure Ivy Ventura MD Work Phone: OB/Gynecology Comment on above: Encounter for superv ision of normal in multigravida, antepartum (HCC) (Primary Dx); 12 weeks gestation of ([facility]); Obesity affecting in first trimester, unspecified obesity type ([facility]) Encounter for ultras ound to check growth ([facility]) (Primary Dx); 12 weeks gestation of ([facility]) Start: 02-28-2025 End: 02-28-2025 ambulatory KADEN ROMERORISON Facility:[facility] Start: 01-31-2025 End: 04-02-2025 Follow-up encounter Rowena Hawthorne APRN.CNP Work Phone: OB/Gynecology Start: 01-31-2025 End: 01-31-2025 Patient encounter procedure Rowena Hawthorne APRN.LORRI Work Phone: OB/Gynecology Comment on above: Encounter for superv ision of normal in multigravida, antepartum (HCC) (Primary Dx); History of gestational diabetes in prior , currently ([facility]); with uncertain dates in first trimester ([facility]); Screen for STD (sexually transmitted disease); 8 weeks gestation of ([facility]); BMI 34.0-34.9,adult; size inconsistent with dates ([facility]) Start: 01-31-2025 End: 01-31-2025 ambulatory KADEN L MEYER Facility:[facility] Start: 01-07-2025 End: 03-09-2025 Follow-up encounter Ivy Hernandez MD Work Phone: OB/Gynecology Start: 01-05-2025 End: 01-05-2025 ambulatory KADEN L MEYER Facility:[facility] Start: 01-05-2025 End: 03-07-2025 Follow-up encounter Kaden L Meyer DO Work Phone: [facility] Start: 01-04-2025 End: 01-04-2025 Telemedicine consultation with patient Ivy Hernandez MD Work Phone: OB/Gynecology Start: 01-04-2025 End: 01-04-2025 ambulatory Ivy Hernandez MD Work Phone: OB/Gynecology Comment on above: Early stage of pregn cain (HCC) (Primary Dx) Start: 01-03-2025 End: 03-05-2025 Follow-up encounter Mallory Meyer MD Work Phone: OB/Gynecology Start: 01-03-2025 End: 01-03-2025 ambulatory KADEN L MEYER Facility:[facility] Start: 01-01-2025 End: 01-01-2025 ambulatory KADEN L MEYER Facility:[facility] Start: 12-31-2024 End: 01-04-2025 Telephone encounter Hellen Richardson MD Work Phone: OB/Gynecology Comment on above: + test Start: 12-29-2024 End: 02-28-2025 Follow-up encounter Ivy Hernandez MD Work Phone: OB/Gynecology Start: 12-27-2024 End: 12-27-2024 ambulatory KADEN L MEYER Facility:[facility] Start: 12-27-2024 Encounter for genera l adult medical examination without abnormal findings KADEN MEYER [facility] Start: 12-08-2024 End: 12-08-2024 Patient encounter procedure Kaden L Meyer DO Work Phone: [facility] Comment on above: Well adult exam (Luna kal Dx) Start: 12-08-2024 End: 12-08-2024 Patient encounter status Kaden L Meyer DO Work Phone: [facility] Work Phone: Start: 12-08-2024 End: 12-08-2024 ambulatory KADEN MCKEONON Facility:[facility] Start: 12-01-2024 End: 12-01-2024 ambulatory Ivy Hernandez MD Work Phone: OB/Gynecology Comment on above: Next steps.. Start: 10-19-2024 End: 10-19-2024 ambulatory Project Leader [employer] Work Phone: OB/Gynecology Start: 10-19-2024 End: 10-19-2024 Patient encounter procedure Us Tech 1 [facility] OB/Gynecology Start: 10-14-2024 End: 10-14-2024 ambulatory Ivy Hernandez MD Work Phone: OB/Gynecology Comment on above: Dysmenorrhea (Primar y Dx); Excessive bleeding in premenopausal period; Female infertility Start: 10-14-2024 End: 10-14-2024 Telemedicine consultation with patient Ivy Hernandez MD Work Phone: OB/Gynecology Start: 10-13-2024 End: 10-13-2024 Telephone encounter Kaden Meyer DO Work Phone: [facility] Comment on above: Results Start: 10-12-2024 End: 10-12-2024 ambulatory KADEN L MEYER Facility:[facility] Start: 10-12-2024 End: 10-12-2024 Patient encounter procedure Kaden Mckeonon DO Work Phone: [facility] Comment on above: URI, acute (Primary Dx); Fever, unspecified fever cause; Acute cough; Nausea Start: 09-18-2024 End: 09-18-2024 ambulatory KADEN L MEYER Facility:[facility] Start: 09-11-2024 End: 09-11-2024 ambulatory KADEN L MEYER Facility:[facility] Start: 09-10-2024 End: 09-13-2024 Telephone encounter Ivy Hernandez MD Work Phone: OB/Gynecology Comment on above: Patient Question Start: 08-06-2024 End: 08-06-2024 ambulatory KADEN MCKEONON Facility:[facility] Start: 08-06-2024 End: 08-06-2024 Patient encounter procedure Jennifer Robertson BOTTLE CAPPING MACHINE OPERATOR.CONTRACTS MANAGER Work Phone: [facility] Comment on above: Respiratory infectio n (Primary Dx); [place] eye disease of right eye Start: 07-08-2024 End: 07-08-2024 Refill Katt Fletcher BOTTLE CAPPING MACHINE OPERATOR.CONTRACTS MANAGER Work Phone: Family [facility] [place] Comment on above: Refill Request Start: 04-01-2024 ambulatory Ivy Hernandez MD Work Phone: OB/Gynecology Comment on above: 8 months of trying t o conceive Start: 03-23-2024 ambulatory Kaden jiménez DO Work Phone: [facility] [place] Comment on above: bloodwork? Start: 03-23-2024 Telephone encounter Kaden jimenez DO Work Phone: [facility] [place] Comment on above: Lab Orders Start: 02-17-2024 ambulatory Kaden jiménez DO Work Phone: [facility] [place] Comment on above: Hand pain/ achiness Start: 02-17-2024 Telephone encounter Kaden jimenez DO Work Phone: [facility] Comment on above: Patient Question Start: 12-04-2023 Telephone encounter Ivy Hernandez MD Work Phone: OB/Gynecology Comment on above: Decreasing HCG Start: 12-01-2023 Telephone encounter Ivy Hernandez MD Work Phone: OB/Gynecology Comment on above: +UPT Start: 11-26-2023 End: 11-26-2023 Patient encounter procedure Kaden Meyer DO Work Phone: [facility] Comment on above: Well adult exam (Luna kal Dx); Pain in both hands; EMILEE (generalized anxiety disorder); Class 1 obesity with body mass index (BMI) of 32.0 to 32.9 in adult, unspecified obesity type, unspecified whether serious comorbidity present Start: 11-26-2023 End: 11-26-2023 Patient encounter status Kaden Meyer DO Work Phone: [facility] Work Phone: Start: 09-02-2023 End: 09-02-2023 Patient encounter procedure Ivy Hernandez MD Work Phone: OB/Gynecology Comment on above: Encounter for gyneco logical examination (general) (routine) without abnormal findings (Primary Dx); Screening for cervical cancer Start: 09-02-2023 End: 09-02-2023 Patient encounter status Ivy Hernandez MD Work Phone: [facility] Start: 08-02-2023 ambulatory Kaden jiménez DO Work Phone: [facility] Comment on above: weight ga in - weaning baby Start: 06-21-2023 End: 06-21-2023 ambulatory Immunization [facility] Nurse [place] Work Phone: [facility] [place] Start: 06-09-2023 Telephone encounter Kaden jimenez DO Work Phone: [facility] [place] Comment on above: Fever Start: 06-08-2023 End: 06-08-2023 Patient encounter procedure Crystal Moreau BOTTLE CAPPING MACHINE OPERATOR.CONTRACTS MANAGER Work Phone: [facility] Comment on above: Viral illness (Prima ry Dx) Start: 05-21-2023 Telephone encounter Daria Means BOTTLE CAPPING MACHINE OPERATOR.CONTRACTS MANAGER Work Phone: [facility] Comment on above: Orders Start: 05-21-2023 End: 05-21-2023 Patient encounter procedure Daria Davies BOTTLE CAPPING MACHINE OPERATOR.CONTRACTS MANAGER Work Phone: [facility] Comment on above: Jaw pain (Primary Dx ); Lymphadenopathy, submandibular; Yeast infection of the skin Start: 04-10-2023 End: 04-10-2023 Patient encounter procedure Irma LOMBARDO Work Phone: [facility] Comment on above: Skin lesion (Primary Dx) Start: 04-02-2023 Refill Katt Fletcher EDE Work Phone: [facility] Comment on above: Refill Request Start: 03-08-2023 Telephone encounter Kaden jimenez DO Work Phone: [facility] Comment on above: Orders Start: 02-20-2023 ambulatory Kaden jiménez DO Work Phone: [facility] Comment on above: Question on being ti red often. Start: 02-20-2023 Telephone encounter Kaden jimenez DO Work Phone: [facility] Comment on above: Patient Question (My chart) Start: 10-30-2022 End: 10-30-2022 Patient encounter procedure Kaden Meyer DO Work Phone: [facility] Comment on above: Well adult exam (Luna kal Dx); EMILEE (generalized anxiety disorder); Hypothyroidism, acquired Start: 10-30-2022 End: 10-30-2022 Patient encounter status Kaden Meyer DO Work Phone: [facility] Start: 09-25-2022 End: 09-25-2022 Patient encounter procedure Ivy Hernandez MD Work Phone: OB/Gynecology Comment on above: care and examination (Primary Dx); EMILEE (generalized anxiety disorder); History of gestational diabetes Start: 08-21-2022 End: 08-21-2022 Patient encounter procedure Ivy Hernandez MD Work Phone: OB/Gynecology Comment on above: care and examination immediately after delivery (Primary Dx) Start: 08-14-2022 ambulatory Ivy Hernandez MD Work Phone: OB/Gynecology Comment on above: Ob Delivery Note Start: 08-14-2022 End: 08-16-2022 [facility] Start: 08-07-2022 End: 08-07-2022 Patient encounter procedure Ivy Hernandez MD Work Phone: OB/Gynecology Comment on above: Gestational diabetes mellitus, class A1 (Primary Dx); Excessive growth affecting management of in third trimester, single or unspecified fetus; Obesity in ; 38 weeks gestation of Start: 08-06-2022 Refill Katt mendosa APRN.CNP Work Phone: [facility] Comment on above: Refill Request Start: 07-31-2022 End: 07-31-2022 Patient encounter procedure Ivy Hernandez MD Work Phone: OB/Gynecology Comment on above: Gestational diabetes mellitus, class A1 (Primary Dx); Excessive growth affecting management of in third trimester, single or unspecified fetus; Obesity in ; 37 weeks gestation of Start: 07-24-2022 End: 07-24-2022 Patient encounter procedure Ivy Hernandez MD Work Phone: OB/Gynecology Comment on above: Gestational diabetes mellitus, class A1 (Primary Dx); Excessive growth affecting management of in third trimester, single or unspecified fetus; Obesity in ; 36 weeks gestation of Gestational diabetes mellitus, class A1 (Primary Dx); 36 weeks gestation of ; Macrosomia Gestational diabetes mellitus, class A1 (Primary Dx); Obesity in Start: 07-24-2022 Telephone encounter Ivy Hernandez MD Work Phone: OB/Gynecology Comment on above: Results Start: 07-23-2022 Telephone encounter Ivy Hernandez MD Work Phone: OB/Gynecology Comment on above: Orders Start: 07-17-2022 Telephone encounter Maria Teresa juarez APRN.CNM Work Phone: OB/Gynecology Comment on above: Critical Results Start: 07-17-2022 End: 07-17-2022 [facility] [place] Start: 07-16-2022 ambulatory Ivy Hernandez MD Work Phone: OB/Gynecology Comment on above: Sharp pain from leroy y button down Start: 07-10-2022 End: 07-10-2022 Patient encounter procedure Ivy Hernandez MD Work Phone: OB/Gynecology Comment on above: Gestational diabetes mellitus, class A1 (Primary Dx); Excessive growth affecting management of in third trimester, single or unspecified fetus; 34 weeks gestation of Start: 06-14-2022 End: 06-14-2022 Patient encounter procedure Ivy Hernandez MD Work Phone: OB/Gynecology Comment on above: Gestational diabetes mellitus, class A1 (Primary Dx); 30 weeks gestation of ; Need for influenza vaccination Start: 06-12-2022 End: 06-12-2022 Nursing evaluation of patient and report George Wade RN Work Phone: Endocrinology Comment on above: Abnormal maternal gl ucose tolerance, antepartum Start: 06-11-2022 Telephone encounter Ivy Hernandez MD Work Phone: OB/Gynecology Comment on above: Results Start: 06-06-2022 ambulatory Ivy Hernandez MD Work Phone: OB/Gynecology Comment on above: Due date change? Start: 05-29-2022 End: 05-29-2022 Patient encounter procedure Michelle Frausto MD Work Phone: Maternal Medicine Comment on above: Suspected placental problem not found (Primary Dx); 28 weeks gestation of 28 weeks gestation o f (Primary Dx); Excessive growth affecting management of in third trimester, single or unspecified fetus; Need for vaccination; EMILEE (generalized anxiety disorder); History of COVID-19; COVID-19 affecting in third trimester Start: 04-01-2022 ambulatory Ivy Hernandez MD Work Phone: OB/Gynecology Comment on above: 28 week ultrasound Start: 04-01-2022 Telephone encounter Ivy Hernandez MD Work Phone: OB/Gynecology Comment on above: Breast Pump Start: 03-28-2022 End: 03-28-2022 Patient encounter procedure Ivy Hernandez MD Work Phone: OB/Gynecology Comment on above: Low-lying placenta ( Primary Dx); 19 weeks gestation of ; Vitamin D deficiency; History of thyroid nodule Encounter for anatomic survey (Primary Dx); 19 weeks gestation of ; Obesity complicating , second trimester Start: 03-20-2022 End: 03-20-2022 Patient encounter procedure Katt Singh BOTTLE CAPPING MACHINE OPERATOR.CONTRACTS MANAGER Work Phone: [facility] [place] Comment on above: EMILEE (generalized anx iety disorder) (Primary Dx) Start: 02-27-2022 End: 02-27-2022 Patient encounter procedure Ivy Hernandez MD Work Phone: OB/Gynecology Comment on above: Encounter for superv ision of normal first in second trimester (Primary Dx); 15 weeks gestation of Start: 02-04-2022 End: 02-04-2022 Emergency department patient visit [facility] Start: 02-04-2022 Telephone encounter Ivy Hernandez MD Work Phone: OB/Gynecology Comment on above: Question (OB Questio n) Start: 01-30-2022 End: 01-30-2022 Patient encounter procedure Ivy Hernandez MD Work Phone: OB/Gynecology Comment on above: Encounter for superv ision of normal first in first trimester (Primary Dx); 11 weeks gestation of Start: 01-09-2022 End: 01-09-2022 Patient encounter procedure Ivy Hernandez MD Work Phone: OB/Gynecology Comment on above: with uncer tain dates in first trimester (Primary Dx) Start: 12-27-2021 ambulatory Ivy Hernandez MD Work Phone: OB/Gynecology Comment on above: constipated Start: 12-26-2021 Telephone encounter Maria Teresa juarez BOTTLE CAPPING MACHINE OPERATOR.CNM Work Phone: OB/Gynecology Comment on above: Patient Question Start: 12-25-2021 ambulatory [facility] Provider OB/Gynecol jeff Comment on above: Care [place] zuniga Enrollment Start: 12-25-2021 E-mail encounter darlyn henning caregiver [facility] Provider [facility] Start: 12-12-2021 Telephone encounter Kaden jimenez DO Work Phone: [facility] [place] Comment on above: Results Start: 06-19-2018 End: 10-15-2018 Physical examination Kaden Meyer DO Work Phone: [facility] Work Phone: Procedures Date Procedure Procedure Detail Performing Clinician Start: 04-11-2025 Us preg uterus after 1st trimest 1/1st gestation Rowena Marine BOTTLE CAPPING MACHINE OPERATOR.CONTRACTS MANAGER Work Phone: Start: 02-28-2025 Antibody screen KADEN MEYER Comment on above: Order Comment: Speci men Type: BLOOD SPECIMEN Ordering Facility: [facility] Address: [address] [place] [address] Performed By: #### 2 [id number], [id number], [id number] #### [facility] CLIA [id number] [address] [place] [address] [place] Start: 02-28-2025 Us preg uterus after 1st trimest 1/1st gestation Rowena Marine BOTTLE CAPPING MACHINE OPERATOR.CONTRACTS MANAGER Work Phone: Start: 01-31-2025 Us uterus limited 1/> fetuses Rowena Marine BOTTLE CAPPING MACHINE OPERATOR.CONTRACTS MANAGER Work Phone: Start: 01-31-2025 Adult depression screening assessment Ivy Hernandez MD Work Phone: Start: 10-19-2024 Us pelvic nonobstetr ic real-time image complete Ivy Hernandez MD Work Phone: Start: 08-06-2024 STREP A MOLECULAR (POC) [facility] Provider Start: 06-21-2023 INFLUENZA VACCINE, A GE 6 MO - 64 YR, QUADRIVALENT (AFLURIA, FLULAVAL, FLUZONE) Abraham West MD Work Phone: Start: 08-07-2022 URINE OB DIP B/O Ivy Teresa Hernandez MD Work Phone: Start: 07-31-2022 URINE OB DIP B/O Ivy Hernandez MD Work Phone: Start: 07-24-2022 URINE OB DIP B/O Ivy Hernandez MD Work Phone: Start: 07-24-2022 Us preg uterus after 1st trimest /1st gestation Ivy Hernandez MD Work Phone: Start: 07-10-2022 URINE OB DIP B/O Ivy Teresa Hernandez MD Work Phone: Start: 06-14-2022 INFLUENZA VACCINE QUADRIVALENT 6 MO - 64 YRS IM Ivy Hernandez MD Work Phone: Start: 06-14-2022 URINE OB DIP B/O Ivy Teresa Hernandez MD Work Phone: Start: 05-29-2022 URINE OB DIP B/O Ivy Teresa Hernandez MD Work Phone: Start: 05-29-2022 Us preg uterus after 1st trimest 1/1st gestation Ivy Hernandez MD Work Phone: Start: 03-28-2022 Us preg uterus after 1st trimest /1st gestation Ivy Hernandez MD Work Phone: Start: 03-28-2022 URINE OB DIP B/O Ivy Hernandez MD Work Phone: Start: 03-20-2022 Adult depression screening assessment Katt Singh APRN.CNP Work Phone: Start: 02-27-2022 URINE OB DIP B/O Ivy Hernandez MD Work Phone: Start: 01-30-2022 URINE OB DIP B/O Ivy Hernandez MD Work Phone: Start: 12-19-2020 Adult depression screening assessment Maria Teresa Stephen APRN.ARUNA Work Phone: H/O: section S/P primar y low transverse Urine culture Plan of Treatment Date Care Activity Detail Author Start: 05-29-2032 Urine microalbumin profile [facility] Start: 05-25-2031 Urine microalbumin profile DTAP,TDAP,TD (5 - Td or Tdap) [facility] Start: 09-02-2026 Screening for malign ant neoplasm of cervix Pap Testing [facility] Start: 01-31-2026 Depression Screening Depression Scre ening [facility] Start: 10-12-2025 Covid-19 Vaccine () Covid-19 Vaccine () [facility] Comment on above: Postponed from 05/23 (Declined at this time) Start: 09-09-2025 End: 09-09-2025 Patient encounter procedure 09/09/2025 8:20 AM EST Office Visit OB/Gynecology [address] [place] [id number] Ivy Albarran MD [address] [place] [address] 1 week incision check OB/Gynecology Comment on above: 1 week incision chec k Start: 08-26-2025 End: 08-26-2025 Patient encounter procedure 08/26/2025 10:20 AM EST Routine Office Visit OB/Gynecology [address] [place] [id number] Ivy Albarran MD [address] [place] [address] OB - Pre Op C/S 09/02 @ [facility] OB/Gynecology Comment on above: OB - Pre Op C/S 08/22 2 @ [facility] Start: 08-08-2025 End: 08-08-2025 Patient encounter procedure 08/08/2025 8:00 AM EST Routine Office Visit Maternal Medicine [address] [place] [address] Growth Maternal Medicine Comment on above: Growth Start: 07-26-2025 End: 07-26-2025 Patient encounter procedure 07/26/2025 8:10 AM EST Routine Office Visit OB/Gynecology [address] [place] [address] Ivy Albarran MD [address] [place] [address] OB OB/Gynecology Comment on above: OB Start: 07-12-2025 RSV Vaccine (1 - Ris k 1-dose series) RSV Vaccine (1 - Risk 1-dose series) [facility] Start: 07-12-2025 End: 07-12-2025 Patient encounter procedure 07/12/2025 8:40 AM EDT Routine Office Visit OB/Gynecology [address] [place] [address] Ivy Albarran MD [address] [place] [address] OB OB/Gynecology Comment on above: OB Start: 07-11-2025 End: 07-11-2025 Patient encounter procedure 07/11/2025 3:00 PM EDT Routine Office Visit Maternal Medicine [address] [place] [address] Growth Maternal Medicine Comment on above: Growth Start: 06-27-2025 End: 06-27-2025 Patient encounter procedure 06/27/2025 10:50 AM EDT Routine Office Visit OB/Gynecology [address] [place] [address] Ivy Ventura MD [address] [place] [address] OB OB/Gynecology Comment on above: OB Start: 06-13-2025 End: 09-12-2025 ANEMIA REFLEX PANEL ANEMIA REFLEX PANEL Lab Routine Encounter for supervision of other normal in second trimester (HCC) Expected: 06/13/2025, Expires: 09/12/2025 [facility] Comment on above: Expected: 06/13/2025 , Expires: 09/12/2025 Start: 06-13-2025 End: 05-30-2026 GESTATIONAL GLUCOSE SCREEN, 1-HOUR, 50 GRAM, NON-FASTING GESTATIONAL GLUCOSE SCREEN, 1-HOUR, 50 GRAM, NON-FASTING Lab Routine Screening for diabetes mellitus Expected: 06/13/2025, Expires: 05/30/2026 [facility] Work Phone: Comment on above: Expected: 06/13/2025 , Expires: 05/30/2026 Start: 06-13-2025 End: 05-30-2026 SYPHILIS TREPONEMAL W/REFLEX SYPHILIS TREPONEMAL W/REFLEX Lab Routine Encounter for supervision of other normal in second trimester (HCC) Expected: 06/13/2025, Expires: 05/30/2026 [facility] Comment on above: Expected: 06/13/2025 , Expires: 05/30/2026 Start: 06-13-2025 End: 06-13-2025 Patient encounter procedure 06/13/2025 8:40 AM EDT Routine Office Visit OB/Gynecology [address] [place] [address] Ivy Albarran MD [address] [place] [address] OB OB/Gynecology Comment on above: OB Start: 06-13-2025 End: 06-13-2025 ambulatory 06/13/2025 8:30 AM EDT Results Only [place] [facility] Laboratory [address] [place] [address] Glucose lab [facility] Laboratory Comment on above: Glucose lab Start: 06-07-2025 End: 09-06-2025 Comprehensive metabolic 2000 panel - Serum or Plasma [facility] Comment on above: Expected: 06/07/2025 , Expires: 09/06/2025 Start: 06-07-2025 End: 09-06-2025 Lactate dehydrogenase [Enzymatic activity/volume] in Serum or Plasma [facility] Comment on above: Expected: 06/07/2025 , Expires: 09/06/2025 Start: 06-07-2025 End: 09-06-2025 Protein/Creatinine [Mass Ratio] in Urine [facility] Comment on above: Expected: 06/07/2025 , Expires: 09/06/2025 Start: 06-07-2025 End: 09-06-2025 Urate [Mass/volume] in Serum or Plasma [facility] Work Phone: Comment on above: Expected: 06/07/2025 , Expires: 09/06/2025 Start: 05-30-2025 End: 05-30-2025 Patient encounter procedure 05/30/2025 4:20 PM EDT Routine Office Visit OB/Gynecology [address] [place] [address] Ivy Albarran MD [address] [place] [address] OB OB/Gynecology Comment on above: OB Start: 05-23-2025 Influenza vaccination C [facility] Start: 05-02-2025 End: 05-02-2025 Patient encounter procedure 05/02/2025 8:40 AM EDT Routine Office Visit OB/Gynecology [address] [place] [address] Ivy Albarran MD [address] [place] [address] OB OB/Gynecology Comment on above: OB Start: 04-11-2025 End: 04-11-2025 Patient encounter procedure Maternal Medicine Comment on above: ANATOMY OB Start: 04-04-2025 End: 04-04-2025 Patient encounter procedure 04/04/2025 8:10 AM EDT Routine Office Visit OB/Gynecology [address] [place] [address] Ivy Albarran MD [address] [place] [address] Ob OB/Gynecology Comment on above: Ob Start: 03-21-2025 Influenza vaccination Influenza Vacc ine (#1) [facility] Comment on above: Postponed from 05/23 (Declined at this time) Start: 02-28-2025 End: 05-30-2025 Chromosome 21 trisomy [Presence] in Blood or Tissue by Cytogenetics [facility] Work Phone: Comment on above: Expected: 02/28/2025 , Expires: 05/30/2025 Start: 02-28-2025 End: 02-28-2025 Patient encounter procedure OB/Gynecology Comment on above: Nuchal Start: 01-31-2025 End: 05-02-2025 ANEMIA REFLEX PANEL ANEMIA REFLEX PANEL Lab Routine with uncertain dates in first trimester (HCC) Expected: 01/31/2025, Expires: 05/02/2025 [facility] Work Phone: Comment on above: Expected: 01/31/2025 , Expires: 05/02/2025 Start: 01-31-2025 End: 05-02-2025 Comprehensive metabolic 2000 panel - Serum or Plasma COMPREHENSIVE METABOLIC PANEL Lab Routine History of gestational diabetes in prior , currently (HCC) Expected: 01/31/2025, Expires: 05/02/2025 [facility] Comment on above: Expected: 01/31/2025 , Expires: 05/02/2025 Start: 01-31-2025 End: 05-02-2025 Hemoglobin A1c in Blood HEMOGLOBIN A1C Lab Routine with uncertain dates in first trimester (HCC) Expected: 01/31/2025, Expires: 05/02/2025 [facility] Comment on above: Expected: 01/31/2025 , Expires: 05/02/2025 Start: 01-31-2025 End: 05-02-2025 Hepatitis B virus surface Ag [Presence] in Serum HEPATITIS B SURFACE ANTIGEN Lab Routine with uncertain dates in first trimester (HCC) Expected: 01/31/2025, Expires: 05/02/2025 [facility] Comment on above: Expected: 01/31/2025 , Expires: 05/02/2025 Start: 01-31-2025 End: 05-02-2025 Hepatitis C virus Ab [Presence] in Serum HEPATITIS C ANTIBODY IA WITH CONFIRMATION Lab Routine with uncertain dates in first trimester (HCC) Expected: 01/31/2025, Expires: 05/02/2025 [facility] Comment on above: Expected: 01/31/2025 , Expires: 05/02/2025 Start: 01-31-2025 End: 05-02-2025 HIV 1+2 Ab [Presence] in Serum or Plasma by Immunoassay HIV 1/2 COMBO WITH REFLEX TO DIFFERENTIATION Lab Routine with uncertain dates in first trimester (HCC) Expected: 01/31/2025, Expires: 05/02/2025 [facility] Comment on above: Expected: 01/31/2025 , Expires: 05/02/2025 Start: 01-31-2025 End: 01-31-2026 OBSTETRIC ULTRASOUND WHI OBSTETRIC ULTRASOUND WHI Anc Imaging Routine with uncertain dates in first trimester ([facility]) Expected: 01/31/2025, Expires: 01/31/2026 [facility] Comment on above: Expected: 01/31/2025 , Expires: 01/31/2026 Start: 01-31-2025 End: 05-02-2025 Protein/Creatinine [Mass Ratio] in Urine PROTEIN / CREATININE RATIO Lab Routine History of gestational diabetes in prior , currently (HCC) Expected: 01/31/2025, Expires: 05/02/2025 [facility] Comment on above: Expected: 01/31/2025 , Expires: 05/02/2025 Start: 01-31-2025 End: 05-02-2025 RUBELLA IGG ANTIBODY RUBELLA IGG ANTIBODY Lab Routine with uncertain dates in first trimester (HCC) Expected: 01/31/2025, Expires: 05/02/2025 [facility] Comment on above: Expected: 01/31/2025 , Expires: 05/02/2025 Start: 01-31-2025 End: 05-02-2025 SYPHILIS TREPONEMAL W/REFLEX SYPHILIS TREPONEMAL W/REFLEX Lab Routine with uncertain dates in first trimester ([facility]) Expected: 01/31/2025, Expires: 05/02/2025 [facility] Comment on above: Expected: 01/31/2025 , Expires: 05/02/2025 Start: 01-31-2025 End: 05-02-2025 Thyrotropin [Units/volume] in Serum or Plasma THYROID STIMULATING HORMONE Lab Routine History of gestational diabetes in prior , currently ([facility]) Expected: 01/31/2025, Expires: 05/02/2025 [facility] Comment on above: Expected: 01/31/2025 , Expires: 05/02/2025 Start: 01-31-2025 End: 05-02-2025 TYPE + SCREEN TYPE + SCREEN Blood Bank Routine with uncertain dates in first trimester ([facility]) Expected: 01/31/2025, Expires: 05/02/2025 [facility] Comment on above: Expected: 01/31/2025 , Expires: 05/02/2025 Start: 01-31-2025 End: 01-31-2025 Patient encounter procedure 01/31/2025 8:15 AM EDT Initial Office Visit OB/Gynecology [address] [place] [address] Rowena Hawthorne APRN.CONTRACTS MANAGER [address] [place] [address] OB/Gynecology Comment on above: Start: 01-05-2025 End: 01-05-2025 ambulatory 01/05/2025 4:30 PM EDT Results Only [facility] Draw Station [address] [facility] [place] [place] [address] [facility] Draw [facility] Start: 01-04-2025 End: 04-05-2025 Choriogonadotropin.beta subunit [Units/volume] in Serum or Plasma HCG QUANTITATIVE Lab Routine Early stage of ([facility]) Expected: 01/04/2025, Expires: 04/05/2025 [facility] Work Phone: Comment on above: Expected: 01/04/2025 , Expires: 04/05/2025 Start: 12-22-2024 End: 03-23-2025 Progesterone [Mass/volume] in Serum or Plasma PROGESTERONE Lab Routine Female infertility Expected: 12/22/2024 (Approximate), Expires: 03/23/2025 [facility] Work Phone: Comment on above: Expected: 12/22/2024 (Approximate), Expires: 03/23/2025 Start: 12-08-2024 End: 12-08-2024 Patient encounter procedure 12/08/2024 5:00 PM EDT Office Visit [facility] [address] [place], [place] [id number] Kaden Meyer DO [address] [place], [place] [address] Yearly physical [facility] Comment on above: Yearly physical Start: 12-08-2024 End: 03-09-2025 25-hydroxyvitamin D3 [Mass/volume] in Serum or Plasma VITAMIN D 25 HYDROXY Lab Routine Well adult exam Expected: 12/08/2024, Expires: 03/09/2025 [facility] Comment on above: Expected: 12/08/2024 , Expires: 03/09/2025 Start: 12-08-2024 End: 03-09-2025 CBC W Auto Differential panel - Blood COMPLETE BLOOD COUNT AND DIFFERENTIAL Lab Routine Well adult exam Expected: 12/08/2024, Expires: 03/09/2025 [facility] Comment on above: Expected: 12/08/2024 , Expires: 03/09/2025 Start: 12-08-2024 End: 03-09-2025 Cobalamin (Vitamin B12) [Mass/volume] in Serum or Plasma VITAMIN B12 Lab Routine Well adult exam Expected: 12/08/2024, Expires: 03/09/2025 [facility] Comment on above: Expected: 12/08/2024 , Expires: 03/09/2025 Start: 12-08-2024 End: 03-09-2025 Comprehensive metabolic 2000 panel - Serum or Plasma COMPREHENSIVE METABOLIC PANEL Lab Routine Well adult exam Expected: 12/08/2024, Expires: 03/09/2025 [facility] Comment on above: Expected: 12/08/2024 , Expires: 03/09/2025 Start: 12-08-2024 End: 03-09-2025 Hemoglobin A1c in Blood HEMOGLOBIN A1C Lab Routine Well adult exam Expected: 12/08/2024, Expires: 03/09/2025 [facility] Comment on above: Expected: 12/08/2024 , Expires: 03/09/2025 Start: 12-08-2024 End: 03-09-2025 Thyrotropin [Units/volume] in Serum or Plasma THYROID STIMULATING HORMONE Lab Routine Well adult exam Expected: 12/08/2024, Expires: 03/09/2025 [facility] Work Phone: Comment on above: Expected: 12/08/2024 , Expires: 03/09/2025 Start: 12-08-2024 End: 03-09-2025 Thyroxine (T4) free [Mass/volume] in Serum or Plasma T4 FREE/FREE THYROXINE Lab Routine Well adult exam Expected: 12/08/2024, Expires: 03/09/2025 [facility] Comment on above: Expected: 12/08/2024 , Expires: 03/09/2025 Start: 12-08-2024 End: 03-09-2025 Triiodothyronine (T3) Free [Mass/volume] in Serum or Plasma T3, FREE Lab Routine Well adult exam Expected: 12/08/2024, Expires: 03/09/2025 [facility] Comment on above: Expected: 12/08/2024 , Expires: 03/09/2025 Start: 11-25-2024 Covid-19 Vaccine () Covid-19 Vaccine () [facility] Comment on above: Postponed from 05/23 (Declined at this time) Start: 10-14-2024 End: 10-14-2025 US Pelvis PELVIC US [facility] Anc Imaging Routine Dysmenorrhea Excessive bleeding in premenopausal period Expected: 10/14/2024, Expires: 10/14/2025 [facility] Work Phone: Comment on above: Expected: 10/14/2024 , Expires: 10/14/2025 Start: 10-14-2024 End: 10-14-2024 ambulatory 10/14/2024 1:40 PM [facility] OB/Gynecology [address] [place] [address] Ivy Albarran MD [address] [place] [address] talk about options (1 year of ttc). bloodwork?? OB/Gynecology Comment on above: talk about options ( 1 year of ttc). bloodwork?? Start: 09-18-2024 End: 12-18-2024 Progesterone [Mass/volume] in Serum or Plasma PROGESTERONE Lab Routine Female infertility Expected: 09/18/2024 (Approximate), Expires: 12/18/2024 [facility] Work Phone: Comment on above: Expected: 09/18/2024 (Approximate), Expires: 12/18/2024 Start: 09-02-2024 Screening for malign ant neoplasm of cervix Cervical Cancer Screening [facility] Start: 08-20-2024 End: 08-20-2024 ambulatory 08/20/2024 11:00 AM [facility] OB/Gynecology [address] [place] [id number] Gamal Mccarty MD [address] [place] [address] Preconception counseling OB/Gynecology Comment on above: Preconception counse bridgett Start: 05-23-2024 Covid-19 Vaccine ( season) Covid-19 Vaccine ( season) [facility] Start: 05-23-2024 Influenza vaccination Influenza Vacc ine (#1) [facility] Start: 03-26-2024 End: 03-26-2024 ambulatory 03/26/2024 9:20 AM EDT Results Only [facility] Draw Station [address] [place] [address] [facility] Draw Station Start: 03-23-2024 End: 06-22-2024 CBC panel - Blood by Automated count COMPLETE BLOOD COUNT Lab Routine Easy bruising Expected: 03/23/2024, Expires: 06/22/2024 [facility] Comment on above: Expected: 03/23/2024 , Expires: 06/22/2024 Start: 03-23-2024 End: 06-22-2024 Ferritin [Mass/volume] in Serum or Plasma FERRITIN Lab Routine Easy bruising Expected: 03/23/2024, Expires: 06/22/2024 [facility] Comment on above: Expected: 03/23/2024 , Expires: 06/22/2024 Start: 03-23-2024 End: 06-22-2024 Iron and Iron binding capacity panel - Serum or Plasma IRON AND TIBC Lab Routine Easy bruising Expected: 03/23/2024, Expires: 06/22/2024 [facility] Work Phone: Comment on above: Expected: 03/23/2024 , Expires: 06/22/2024 Start: 12-01-2023 End: 03-01-2024 Choriogonadotropin.beta subunit [Units/volume] in Serum or Plasma HCG QUANTITATIVE Lab Routine Early stage of Expected: 12/01/2023, Expires: 03/01/2024 [facility] Work Phone: Comment on above: Expected: 12/01/2023 , Expires: 03/01/2024 Start: 10-12-2023 PAP TESTING PAP TESTING [facility] Start: 10-12-2023 Screening for malign ant neoplasm of cervix Pap Testing [facility] Start: 09-22-2023 Behavioral Health Screening Behavioral Health Screening [facility] Start: 05-23-2023 Covid-19 Vaccine ( season) Covid-19 Vaccine () [facility] Start: 05-23-2023 Influenza vaccination C [facility] Start: 05-21-2023 End: 07-21-2023 25-hydroxyvitamin D3 [Mass/volume] in Serum or Plasma VITAMIN D 25 HYDROXY Lab Routine Jaw pain Lymphadenopathy, submandibular Expected: 05/21/2023, Expires: 07/21/2023 [facility] Work Phone: Comment on above: Expected: 05/21/2023 , Expires: 07/21/2023 Start: 05-21-2023 End: 07-21-2023 C reactive protein [Mass/volume] in Serum or Plasma [facility] Work Phone: Comment on above: Expected: 05/21/2023 , Expires: 07/21/2023 Start: 05-21-2023 End: 07-21-2023 CBC W Auto Differential panel - Blood [facility] Work Phone: Comment on above: Expected: 05/21/2023 , Expires: 07/21/2023 Start: 05-21-2023 End: 07-21-2023 Comprehensive metabolic 2000 panel - Serum or Plasma [facility] Work Phone: Comment on above: Expected: 05/21/2023 , Expires: 07/21/2023 Start: 03-20-2023 Adult depression screening assessment DEPRESSION SCREENING [facility] Start: 03-10-2023 End: 05-10-2023 Ascorbate [Mass/volume] in Serum or Plasma VITAMIN C Lab Routine Easy bruising Fatigue, unspecified type Expected: 03/10/2023, Expires: 05/10/2023 [facility] Work Phone: Comment on above: Expected: 03/10/2023 , Expires: 05/10/2023 Start: 02-21-2023 End: 04-23-2023 25-hydroxyvitamin D3 [Mass/volume] in Serum or Plasma VITAMIN D 25 HYDROXY Lab Routine Easy bruising Fatigue, unspecified type Expected: 02/21/2023, Expires: 04/23/2023 [facility] Work Phone: Comment on above: Expected: 02/21/2023 , Expires: 04/23/2023 Start: 02-21-2023 End: 04-23-2023 Ascorbate [Mass/volume] in Serum or Plasma VITAMIN C Lab Routine Easy bruising Fatigue, unspecified type Expected: 02/21/2023, Expires: 04/23/2023 [facility] Work Phone: Comment on above: Expected: 02/21/2023 , Expires: 04/23/2023 Start: 02-21-2023 End: 04-23-2023 CBC W Auto Differential panel - Blood CBC + DIFF Lab Routine Easy bruising Fatigue, unspecified type Expected: 02/21/2023, Expires: 04/23/2023 [facility] Work Phone: Comment on above: Expected: 02/21/2023 , Expires: 04/23/2023 Start: 02-21-2023 End: 04-23-2023 Cobalamin (Vitamin B12) [Mass/volume] in Serum or Plasma VITAMIN B12 BLOOD Lab Routine Easy bruising Fatigue, unspecified type Expected: 02/21/2023, Expires: 04/23/2023 [facility] Work Phone: Comment on above: Expected: 02/21/2023 , Expires: 04/23/2023 Start: 02-21-2023 End: 04-23-2023 Ferritin [Mass/volume] in Serum or Plasma FERRITIN BLD Lab Routine Easy bruising Fatigue, unspecified type Expected: 02/21/2023, Expires: 04/23/2023 [facility] Work Phone: Comment on above: Expected: 02/21/2023 , Expires: 04/23/2023 Start: 02-21-2023 End: 04-23-2023 Iron and Iron binding capacity panel - Serum or Plasma IRON + TIBC Lab Routine Easy bruising Fatigue, unspecified type Expected: 02/21/2023, Expires: 04/23/2023 [facility] Work Phone: Comment on above: Expected: 02/21/2023 , Expires: 04/23/2023 Start: 02-21-2023 End: 04-23-2023 Thyrotropin [Units/volume] in Serum or Plasma TSH BLD Lab Routine Easy bruising Fatigue, unspecified type Expected: 02/21/2023, Expires: 04/23/2023 [facility] Work Phone: Comment on above: Expected: 02/21/2023 , Expires: 04/23/2023 Start: 10-30-2022 End: 12-30-2022 CBC W Auto Differential panel - Blood CBC + DIFF Lab Routine Well adult exam Hypothyroidism, acquired Expected: 10/30/2022, Expires: 12/30/2022 [facility] Work Phone: Comment on above: Expected: 10/30/2022 , Expires: 12/30/2022 Start: 10-30-2022 End: 12-30-2022 Comprehensive metabolic 2000 panel - Serum or Plasma COMP METABOLIC PANEL Lab Routine Well adult exam Expected: 10/30/2022, Expires: 12/30/2022 [facility] Work Phone: Comment on above: Expected: 10/30/2022 , Expires: 12/30/2022 Start: 10-30-2022 End: 12-30-2022 Hemoglobin A1c in Blood HGB A1C Lab Routine Well adult exam Expected: 10/30/2022, Expires: 12/30/2022 [facility] Work Phone: Comment on above: Expected: 10/30/2022 , Expires: 12/30/2022 Start: 10-30-2022 End: 12-30-2022 Lipid 1996 panel - Serum or Plasma LIPID PANEL BASIC Lab Routine Well adult exam Expected: 10/30/2022, Expires: 12/30/2022 [facility] Work Phone: Comment on above: Expected: 10/30/2022 , Expires: 12/30/2022 Start: 10-30-2022 End: 12-30-2022 Thyrotropin [Units/volume] in Serum or Plasma TSH BLD Lab Routine Well adult exam Expected: 10/30/2022, Expires: 12/30/2022 [facility] Work Phone: Comment on above: Expected: 10/30/2022 , Expires: 12/30/2022 Start: 10-30-2022 End: 12-30-2022 Thyroxine (T4) free [Mass/volume] in Serum or Plasma T4 FREE/FREE THYROX Lab Routine Well adult exam Expected: 10/30/2022, Expires: 12/30/2022 [facility] Work Phone: Comment on above: Expected: 10/30/2022 , Expires: 12/30/2022 Start: 09-25-2022 End: 11-25-2022 GLUC WILBERT, 2-HR NON-GEST, 75 GM, FASTING GLUC WILBERT, 2-HR NON-GEST, 75 GM, FASTING Lab Routine History of gestational diabetes Expected: 09/25/2022, Expires: 11/25/2022 [facility] Work Phone: Comment on above: Expected: 09/25/2022 , Expires: 11/25/2022 Start: 09-22-2022 DEPRESSION ASSESSMENT DEPRESSION ASS ESSMENT [facility] Start: 08-16-2022 End: 08-16-2022 Patient discharge [facility] Work Phone: Start: 08-15-2022 Application of abdom inal corset [facility] Work Phone: Start: 08-14-2022 Notification of physician [facility] Work Phone: Start: 08-14-2022 [facility] Work Phone: Start: 08-14-2022 Application of abdom inal corset [facility] Work Phone: Start: 08-14-2022 Administration of medication [facility] Work Phone: Start: 08-14-2022 Ambulation therapy management [facility] Work Phone: Start: 08-14-2022 Application of device [facility] Work Phone: Start: 08-14-2022 Application of intermittent pneumatic compression device [facility] Work Phone: Start: 08-14-2022 Assessment of risk o f venous thromboembolism [facility] Work Phone: Start: 08-14-2022 Catheterization of vein [facility] Work Phone: Start: 08-14-2022 Deep breathing and coughing exercises [facility] Work Phone: Start: 08-14-2022 Exercises [facility] Work Phone: Start: 08-14-2022 Incentive spirometry [facility] Work Phone: Start: 08-14-2022 Measuring intake and output [facility] Work Phone: Start: 08-14-2022 Notification of physician [facility] Work Phone: Start: 08-14-2022 Procedure discontinued [facility] Work Phone: Start: 08-14-2022 Provision of activit y privileges [facility] Work Phone: Start: 08-14-2022 Vital signs measurements [facility] Work Phone: Start: 08-14-2022 Wound care [facility] Work Phone: Start: 08-14-2022 End: 08-14-2022 [facility] Work Phone: Start: 08-14-2022 section Primary C Sec tion (Not Applicable) [facility] Work Phone: Start: 08-14-2022 Admission procedure [facility] Work Phone: Start: 08-14-2022 Consultation [facility] Work Phone: Start: 07-23-2022 End: 07-23-2023 OBSTETRIC ULTRASOUND [facility] OBSTETRIC ULTRASOUND [facility] Anc Imaging Routine Gestational diabetes mellitus, class A1 Expected: 07/23/2022, Expires: 07/23/2023 [facility] Work Phone: Comment on above: Expected: 07/23/2022 , Expires: 07/23/2023 Start: 07-17-2022 Nonstress test [facility] Work Phone: Start: 07-17-2022 Obstetric monitoring [facility] Work Phone: Start: 07-17-2022 Vital signs measurements [facility] Work Phone: Start: 07-17-2022 [facility] Work Phone: Start: 07-17-2022 Patient discharge [facility] Work Phone: Start: 05-23-2022 Influenza vaccination INFLUENZA (#1) [facility] Start: 03-28-2022 End: 05-28-2022 25-hydroxyvitamin D3 [Mass/volume] in Serum or Plasma VITAMIN D 25 HYDROXY Lab Routine 19 weeks gestation of Vitamin D deficiency Expected: 03/28/2022, Expires: 05/28/2022 [facility] Work Phone: Comment on above: Expected: 03/28/2022 , Expires: 05/28/2022 Start: 03-28-2022 End: 05-28-2022 Thyrotropin [Units/volume] in Serum or Plasma TSH BLD Lab Routine 19 weeks gestation of History of thyroid nodule Expected: 03/28/2022, Expires: 05/28/2022 [facility] Work Phone: Comment on above: Expected: 03/28/2022 , Expires: 05/28/2022 Start: 01-30-2022 End: 04-01-2022 Hepatitis B virus surface Ab [Presence] in Serum by Immunoassay [facility] Work Phone: Comment on above: Expected: 01/30/2022 , Expires: 04/01/2022 Start: 01-30-2022 End: 04-01-2022 Hepatitis C virus Ab [Presence] in Serum [facility] Work Phone: Comment on above: Expected: 01/30/2022 , Expires: 04/01/2022 Start: 01-30-2022 End: 04-01-2022 HIV 1+2 Ab [Presence] in Serum or Plasma by Immunoassay [facility] Work Phone: Comment on above: Expected: 01/30/2022 , Expires: 04/01/2022 Start: 01-30-2022 End: 04-01-2022 RUBELLA IGG AB [facility] Work Phone: Comment on above: Expected: 01/30/2022 , Expires: 04/01/2022 Start: 01-30-2022 End: 04-01-2022 SYPHILIS TOTAL W/REFLEX [facility] Work Phone: Comment on above: Expected: 01/30/2022 , Expires: 04/01/2022 Start: 01-30-2022 End: 04-01-2022 TYPE + SCREEN [facility] Work Phone: Comment on above: Expected: 01/30/2022 , Expires: 04/01/2022 Start: 12-19-2021 Adult depression screening assessment DEPRESSION SCREENING [facility] Start: 12-13-2021 COVID-19 VACCINE (3 - Booster for Pfizer series) COVID-19 VACCINE (3 - Booster for Pfizer series) [facility] Start: 12-12-2021 End: 02-11-2022 TESTOSTERONE, FREE AND TOTAL TESTOSTERONE, FREE AND TOTAL Lab Routine High serum testosterone Expected: 12/12/2021, Expires: 02/11/2022 [facility] Work Phone: Comment on above: Expected: 12/12/2021 , Expires: 02/11/2022 Start: 09-22-2021 DEPRESSION ASSESSMENT DEPRESSION ASS ESSMENT [facility] Start: 09-09-2021 COVID-19 VACCINE (3 - Booster for Pfizer series) COVID-19 VACCINE (3 - Booster for Pfizer series) [facility] Start: 09-09-2021 COVID-19 VACCINE (3 - Pfizer series) COVID-19 VACCINE (3 - Pfizer series) [facility] Start: 02-02-2014 Depression Screening Depression Scre ening [facility] Start: 02-02-2014 HEPATITIS C SCREENING HEPATITIS C [facility] Start: 02-02-2014 HIV SCREENING HIV SCREENING [facility] Start: 02-02-2010 PEDS TO ADULT TRANSI TION ANNUAL ASSESSMENT PEDS TO ADULT TRANSITION ANNUAL ASSESSMENT [facility] Start: 2008 PEDS TO ADULT TRANSI TION INITIAL DISCUSSION PEDS TO ADULT TRANSITION INITIAL DISCUSSION [facility] Bacteria identified in Urine by Culture BACTERIAL CULTURE, URINE Microbiology Routine with uncertain dates in first trimester ([facility]) 01/31/2025 9:09 AM EDT [facility] Chlamydia trachomatis+Neisseria gonorrhoeae DNA [Presence] in Unspecified specimen by ALVERTO with probe detection GONORRHEA/CHLAMYDIA NAAT Lab Routine with uncertain dates in first trimester ([facility]) 01/31/2025 9:09 AM EDT [facility] COVID & INFLUENZA A/ B & RSV PCR, ROUTINE COVID & INFLUENZA A/B & RSV PCR, ROUTINE Microbiology Routine URI, acute Fever, unspecified fever cause Acute cough Nausea Ordered: 10/12/2024 [facility] Work Phone: Comment on above: Ordered: 10/12/2024 nonstress test NON-S TRESS TEST Procedures Routine Gestational diabetes mellitus, class A1 Obesity in Ordered: 07/24/2022 [facility] Work Phone: Comment on above: Ordered: 07/24/2022 Influenza virus A an d B RNA and SARS-CoV-2 (COVID-19) N gene panel - Respiratory specimen by ALVERTO with probe detection COVID & INFLUENZA A/B NAAT, ROUTINE Microbiology Routine Viral illness Ordered: 06/08/2023 [facility] Work Phone: Comment on above: Ordered: 06/08/2023 OBSTETRIC ULTRASOUND WHI OBSTETR IC ULTRASOUND [facility] Routine Encounter for supervision of normal first in first trimester Ordered: 01/30/2022 [facility] Work Phone: Comment on above: Ordered: 01/30/2022 OBSTETRIC ULTRASOUND WHI OBSTETR IC ULTRASOUND [facility] Routine 19 weeks gestation of Low-lying placenta Ordered: 03/28/2022 [facility] Work Phone: Comment on above: Ordered: 03/28/2022 OBSTETRIC ULTRASOUND WHI OBSTETR IC ULTRASOUND [facility] Routine Excessive growth affecting management of in third trimester, single or unspecified fetus History of COVID-19 Ordered: 05/29/2022 [facility] Work Phone: Comment on above: Ordered: 05/29/2022 End: 11-26-2025 OBSTETRIC ULTRASOUND WHI OBSTETRIC ULTRASOUND [facility] Routine Prior macrosomia, antepartum, second trimester (HCC) Obesity affecting in first trimester, unspecified obesity type (HCC) Once per month for 3 Occurrences starting 05/30/2025 until 11/26/2025 [facility] Comment on above: Once per month for 3 Occurrences starting 05/30/2025 until 11/26/2025 PAP TEST PAP TEST Lab Uday gomez Screening for cervical cancer 09/02/2023 9:19 AM EST [facility] Work Phone: Patient Education [facility] Work Phone: Patient referral [facility] Work Phone: ROUTINE, GR OUP B STREP PCR ROUTINE, GROUP B STREP PCR Microbiology Routine 36 weeks gestation of 07/24/2022 8:57 AM EDT [facility] Work Phone: TRICHOMONAS VAGINALI S NAAT TRICHOMONAS VAGINALIS NAAT Lab Routine Screen for STD (sexually transmitted disease) 01/31/2025 9:09 AM EDT [facility] Immunizations Immunization Date Immunization Notes Care Provider Joy [facility] 06-21-2023 influenza, injectabl e, quadrivalent, contains preservative Immunization Valmy Work Phone: [facility] 06-21-2023 influenza virus vaccine, unspecified formulation Kaden Meyer DO Work Phone: [facility] 06-14-2022 influenza, injectabl e, quadrivalent, contains preservative Ivy Teresa Hernandez MD Work Phone: [facility] 06-14-2022 influenza, seasonal, injectable [facility] Work Phone: 06-14-2022 influenza virus vaccine, unspecified formulation Crystal Moreau BOTTLE CAPPING MACHINE OPERATOR.CONTRACTS MANAGER Work Phone: [facility] 05-29-2022 tetanus toxoid, reduced diphtheria toxoid, and acellular pertussis vaccine, adsorbed Michelle Frausto MD Work Phone: [facility] 06-18-2021 influenza, injectabl e, quadrivalent, contains preservative Maria Teresa Plotts BOTTLE CAPPING MACHINE OPERATOR.CNM Work Phone: [facility] 05-25-2021 tetanus toxoid, reduced diphtheria toxoid, and acellular pertussis vaccine, adsorbed Maria Teresa Plotts BOTTLE CAPPING MACHINE OPERATOR.CNM Work Phone: [facility] 06-17-2020 influenza, injectabl e, quadrivalent, contains preservative Maria Teresa Plotts BOTTLE CAPPING MACHINE OPERATOR.CNM Work Phone: [facility] Work Phone: 07-28-2019 influenza, injectabl e, quadrivalent, contains preservative Maria Teresa Plotts BOTTLE CAPPING MACHINE OPERATOR.CNM Work Phone: [facility] Work Phone: 06-19-2018 influenza, injectabl e, quadrivalent, contains preservative Maria Teresa Plotts BOTTLE CAPPING MACHINE OPERATOR.CNM Work Phone: [facility] Work Phone: 07-29-2013 influenza virus vaccine, unspecified formulation Maria Teresa Sorianots BOTTLE CAPPING MACHINE OPERATOR.CNM Work Phone: [facility] Work Phone: 04-17-2012 hepatitis A vaccine, unspecified formulation Maria Teresa Plotts BOTTLE CAPPING MACHINE OPERATOR.CNM Work Phone: [facility] Work Phone: 04-17-2012 Meningococcal, MCV4, unspecified conjugate formulation(groups A, C, Y and W-135) Maria Teresa Stephen BOTTLE CAPPING MACHINE OPERATOR.CNM Work Phone: [facility] Work Phone: 09-17-2010 human papilloma viru s vaccine, quadrivalent Maria Teresa Plotts BOTTLE CAPPING MACHINE OPERATOR.CNM Work Phone: [facility] 09-17-2010 influenza virus vaccine, unspecified formulation Maria Teresa Plotts BOTTLE CAPPING MACHINE OPERATOR.CNM Work Phone: [facility] 01-05-2010 human papilloma viru s vaccine, quadrivalent Maria Teresa Plotts BOTTLE CAPPING MACHINE OPERATOR.CNM Work Phone: [facility] Work Phone: 07-13-2009 influenza virus vaccine, unspecified formulation Maria Teresa Stephen BOTTLE CAPPING MACHINE OPERATOR.CNM Work Phone: [facility] Work Phone: 05-10-2009 hepatitis A vaccine, unspecified formulation Maria Teresa Stephen BOTTLE CAPPING MACHINE OPERATOR.CNM Work Phone: [facility] Work Phone: 05-10-2009 human papilloma viru s vaccine, quadrivalent Maria Teresa Stephen BOTTLE CAPPING MACHINE OPERATOR.CNM Work Phone: [facility] Work Phone: 05-10-2009 tetanus toxoid, reduced diphtheria toxoid, and acellular pertussis vaccine, adsorbed Maria Teresa Stephen BOTTLE CAPPING MACHINE OPERATOR.CN Work Phone: [facility] Work Phone: 04-13-2008 Meningococcal, MCV4, unspecified conjugate formulation(groups A, C, Y and W-135) Maria Teresa Stephen BOTTLE CAPPING MACHINE OPERATOR.CNM Work Phone: [facility] Work Phone: 05-02-2001 diphtheria, tetanus toxoids and acellular pertussis vaccine Maria Teresa Stephen BOTTLE CAPPING MACHINE OPERATOR.CN Work Phone: [facility] Work Phone: 05-02-2001 measles, mumps and rubella virus vaccine Maria Teresa Stephen BOTTLE CAPPING MACHINE OPERATOR.CNAnuj Work Phone: [facility] Work Phone: 05-02-2001 trivalent poliovirus vaccine, live, oral Maria Teresa Stephen APRN.CNM Work Phone: [facility] Work Phone: 07-23-1997 Chicken Pox (disease) Justina Stephen BOTTLE CAPPING MACHINE OPERATOR.CNM Work Phone: [facility] Work Phone: 05-06-1997 diphtheria, tetanus toxoids and acellular pertussis vaccine Maria Teresa Stephen BOTTLE CAPPING MACHINE OPERATOR.CNM Work Phone: [facility] Work Phone: 1997 haemophilus influenz ae type b vaccine, HbOC conjugate [facility] Plotts BOTTLE CAPPING MACHINE OPERATOR.CNM Work Phone: [facility] Work Phone: 1997 measles, mumps and rubella virus vaccine Maria Teresa Plotts BOTTLE CAPPING MACHINE OPERATOR.CNM Work Phone: [facility] Work Phone: 1996 hepatitis B vaccine, pediatric or pediatric/adolescent dosage Maria Teresa Plotts BOTTLE CAPPING MACHINE OPERATOR.CNM Work Phone: [facility] Work Phone: 1996 DTP-Haemophilus influenzae type b conjugate vaccine Daria Samson BOTTLE CAPPING MACHINE OPERATOR.CONTRACTS MANAGER Work Phone: [facility] Work Phone: 1996 Tetramune Maria Teresa Plotts BOTTLE CAPPING MACHINE OPERATOR.CNM Work Phone: [facility] Work Phone: 1996 trivalent poliovirus vaccine, live, oral Maria Teresa Plotts BOTTLE CAPPING MACHINE OPERATOR.CNM Work Phone: [facility] Work Phone: 1996 DTP-Haemophilus influenzae type b conjugate vaccine Daria Samson BOTTLE CAPPING MACHINE OPERATOR.CONTRACTS MANAGER Work Phone: [facility] Work Phone: 1996 Tetramune Maria Teresa Plotts BOTTLE CAPPING MACHINE OPERATOR.CNM Work Phone: [facility] Work Phone: 1996 trivalent poliovirus vaccine, live, oral Maria Teresa Plotts BOTTLE CAPPING MACHINE OPERATOR.CNM Work Phone: [facility] Work Phone: 1996 hepatitis B vaccine, pediatric or pediatric/adolescent dosage Maria Teresa Plotts BOTTLE CAPPING MACHINE OPERATOR.CNM Work Phone: [facility] Work Phone: 1996 DTP-Haemophilus influenzae type b conjugate vaccine Daria Samson BOTTLE CAPPING MACHINE OPERATOR.CONTRACTS MANAGER Work Phone: [facility] Work Phone: 1996 Tetramune Maria Teresa Stephen BOTTLE CAPPING MACHINE OPERATOR.CNM Work Phone: [facility] Work Phone: 1996 trivalent poliovirus vaccine, live, oral Maria Teresa Stephen BOTTLE CAPPING MACHINE OPERATOR.CNM Work Phone: [facility] Work Phone: 1996 hepatitis B vaccine, pediatric or pediatric/adolescent dosage Maria Teresa Stephen BOTTLE CAPPING MACHINE OPERATOR.CNM Work Phone: [facility] Work Phone: Payers Date Payer Category Payer Self-pay [id number] 2021 [employer] BLUE CARD PPO OOS [id number] 2021 Unknown [employer]THEM BLUE CARD PPO OOS [id number] 2021-Present [phone] [place] [id number] PPO [id number] 2021 Unknown [employer]M BLUE CARD PPO OOS [id number] 2021-Present [phone] [place] [id number] PPO [id number] 2021 Unknown [id number] Private Health Insurance [id number] Unknown [id number] Unknown [id number] Social History Date Type Detail Facility Start: 12-19-2015 End: 06-26-2022 Tobacco smoking status NHIS Never smoked tobacco [facility] Start: 12-25-2021 End: 06-07-2025 Alcohol intake Ex-drinker (finding) [facility] Start: 03-07-2020 End: 10-30-2022 History SDOH Alcohol Frequency 3 [facility] Start: 03-07-2020 End: 10-30-2022 History SDOH Alcohol Std Drinks 1 [facility] Start: 03-07-2020 End: 10-30-2022 History SDOH Alcohol Binge 2 [facility] Start: 10-12-2020 History SDOH Alcohol Comment occasional [facility] Start: 03-07-2020 End: 10-30-2022 History SDOH Social Connections Phone 5 [facility] Start: 03-07-2020 History SDOH Social Connections Meetings 98 [facility] Start: 03-07-2020 Education 21 [facility] Start: 12-19-2015 End: 06-26-2022 Tobacco Comment pt does not smoke [facility] Start: 11-21-2021 [facility] Start: 1995 Sex Assigned At Not on file [facility] Start: 12-03-2021 End: 05-29-2022 Exposure to SARS-CoV-2 (event) Not sure [facility] Work Phone: Start: 11-23-2021 Alcohol intake Current drinker of alcohol (finding) [facility] Start: 02-04-2022 End: 08-14-2022 Tobacco smoking status NHIS Unknown if ever smoked [facility] Work Phone: Start: 1995 Sex Assigned At Female [facility] Start: 12-19-2015 End: 06-26-2022 Tobacco use and exposure Smokeless tobacco non-user [facility] Start: 10-30-2022 End: 05-21-2023 History of Social function [facility] Start: 10-30-2022 End: 05-21-2023 Social connection and isolation panel [facility] Do you belong to any clubs or organizations such as orthodoxy groups, unions, fraternal or athletic groups, or school groups? No [facility] Are you now , , , , never or living with a partner? [facility] How often to you hav e a drink containing alcohol? Monthly or less [facility] How many standard dr inks containing alcohol do you have on a typical day? 1 or 2 [facility] How often do you hav e 6 or more drinks on 1 occasion? Less than monthly [facility] Start: 08-23-2012 How hard is it for you to pay for the very basics like food, housing, medical care, and heating Not hard at all [facility] Do you feel stress - tense, restless, nervous, or anxious, or unable to sleep at night because your mind is troubled all the time - these days [OSQ] Only a little [facility] (I/We) worried wheth er (my/our) food would run out before (I/we) got money to buy more. Never true [facility] Start: 04-09-2021 Gender identity Identifies as female gender (finding) [facility] How often do you hav e 6 or more drinks on 1 occasion? Never [facility] Start: 01-27-2025 Sexual orientation Heterosexual (finding) [facility] Medical Equipment Procedure Code Equipment Code Equipment Original Text Equipment Identifier Dates STENT,URETERAL PIGTAIL [id number] FDA Start: 06-12-2018 Start: 06-11-2022 End: 10-30-2022 Comment on above: 1 Strip four times d aily. Use as instructed 1 Each four times da josé luis. Use as instructed STENT,URETERAL PIGTAIL [id number] FDA Start: 06-12-2018 Goals Date Patient Goal Desired Activity /State Personal health goal Functional Status Date Assessment Result Facility 04-11-2015 Are you deaf, or do you have serious difficulty hearing No 04/11/2015 3:58 PM EDT Ariella Church Ma [facility] Work Phone: 04-11-2015 Are you blind, or do you have serious difficulty seeing, even when wearing glasses No 04/11/2015 3:58 PM EDT Ariella Church Ma No [facility] 04-11-2015 Do you have serious difficulty walking or climbing stairs No 04/11/2015 3:58 PM EDT Ariella Church Ma Jeannie [facility] 04-11-2015 Do you have difficul ty dressing or bathing No 04/11/2015 3:58 PM EDT Ariella Church Ma Jeannie [facility] 04-11-2015 Because of a physica l, mental, or emotional condition, do you have difficulty doing errands alone such as visiting a physician's office or shopping No 04/11/2015 3:58 PM EDT Ariella Church Ma Jeannie [facility] Mental Status Date Assessment Result Facility 08-15-2022 [facility] 04-11-2015 Because of a physica l, mental, or emotional condition, do you have serious difficulty concentrating, remembering, or making decisions No 04/11/2015 3:58 PM EDT Ariella Church Ma [facility] Clinical Notes 06-19-2018 to 08-01-2025 Jennifer Delaney APRN.CNM - 06/07/2025 3:34 PM EDTPatient InstructionsTelephone Encounter - Gracia Anne RN - 06/07/2025 10:34 AM EDTPatient InstructionsPatient InstructionsPatient Instructions Note Date & Type Note Facility 08-01-2025 Note HNO ID: [id number] Author: IVY ALBARRAN MD Service: ? Author Type: Physician Type: Progress Notes Filed: 08/01/2025 16:00 Note Text: NST SUMMARY PROVIDER ASSESSMENT AND INTERPRETATION Erwin Baldwin is a 30 year old female, , who is at 34w6d with an ALLEN of 09/06/2025, by Last Menstrual Period dating method. Indications for NST: Gestational Diabetes - Insulin Controlled Baseline: 130 Variability: Moderate Accelerations: Present 15 X 15 Decelerations: None Contractions: TOCO: None Interpretation: Category I and Reactive SIGNATURE: Ivy Jones MD [facility] 07-28-2025 Note HNO ID: [id number] Author: HELLEN RICHARDSON MD Service: ? Author Type: Physician Type: Progress Notes Filed: 07/28/2025 22:48 Note Text: NST SUMMARY PROVIDER ASSESSMENT AND INTERPRETATION Indications for NST: Other: 6/8 BPP Baseline: 125 Variability: Moderate Accelerations: Present 15 X 15 Decelerations: None Interpretation: Reactive SIGNATURE: Hellen Richardson MD [facility] 07-26-2025 Note HNO ID: [id number] Author: IVY ALBARRAN MD Service: ? Author Type: Physician Type: Progress Notes Filed: 07/26/2025 09:10 Note Text: NST SUMMARY PROVIDER ASSESSMENT AND INTERPRETATION Erwin Baldwin is a 30 year old female, , who is at 34w0d with an ALLEN of 09/06/2025, by Last Menstrual Period dating method. Indications for NST: Diabetes - Insulin Controlled Baseline: 135-140 Variability: Moderate Accelerations: Present 15 X 15 Decelerations: Variable - had one variable when first placed onmonitor- no further decels Contractions: TOCO: None Interpretation: Category I and Reactive SIGNATURE: Ivy Jones MD [facility] 07-19-2025 Note HNO ID: [id number] Author: GAMAL MCCARTY MD Service: ? Author Type: Physician Type: Progress Notes Filed: 07/19/2025 10:01 Note Text: NST SUMMARY PROVIDER ASSESSMENT AND INTERPRETATION Erwin Baldwin is a 30 year old female, , who is at 33w0d with an ALLEN of 09/06/2025, by Last Menstrual Period dating method. Indications for NST: Gestational Diabetes - Insulin Controlled Baseline: 135 Variability: Moderate Accelerations: Present 15 X 15 Decelerations: None Contractions: TOCO: None Interpretation: Reactive SIGNATURE: Gamal Mccarty MD [facility] 07-12-2025 Note HNO ID: [id number] Author: NEIVY VANN MD Service: ? Author Type: Physician Type: Progress Notes Filed: 07/12/2025 10:26 Note Text: NST SUMMARY PROVIDER ASSESSMENT AND INTERPRETATION Erwin Baldwin is a 30 year old female, , who is at 32w0d with an ALLEN of 09/06/2025, by Last Menstrual Period dating method. Indications for NST: Diabetes - Insulin Controlled Baseline: 145 Variability: Moderate Accelerations: Present 15 X 15 Decelerations: None Contractions: TOCO: None Interpretation: Category I and Reactive SIGNATURE: Ivy Jones MD [facility] 06-13-2025 Note HNO ID: [id number] Author: EMILE VELAZQUEZ MA Service: ? Author Type: Mannequin Sander And Finisher Type: Progress Notes Filed: 06/13/2025 08:39 Note Text: Patient identified by name and date of . Erwin Baldwin presents today for a vaccination of Tdap. Patient denies an allergy to latex: yes Patient denies a severe (life-threatening) allergy to a previous dose of Tdap, DTP, DTaP, DT or Td vaccine. Yes Patient denies history of epilepsy or neurological problems: Yes Patient is afebrile and denies being moderately or severely ill: Yes Patient denies history of Guillain-Gallitzin Syndrome (a severe paralytic illness): Yes Tdap Adacel injection was given without incident. See immunizations for details of immunizations administered today. VIS sheet provided: Yes Provider Mary was present in office at time of injection. Emile Velazquez MA [facility] 06-07-2025 Note HNO ID: [id number] Author: JENNIFER DELANEY APRN.CNM Service: ? Author Type: Engraver Wood Type: Progress Notes Filed: 06/07/2025 15:44 Note Text: HUNTER-S: Erwin Baldwin is a 30 year old female who presents at 27w0d with ALLEN:09/06/2025, by Last Menstrual Period for a problem visit. Complaint of headache yesterday and today on and off, mild, rating 3/10. Took BP at home and ws 120/89 and was concerned. Denies any other symptoms. Denies chest pain, shortness of breath, vaginal bleeding, leakage of fluid, or dysuria. O: See flow sheet Gen: No apparent distress Abd: Gravid, nontender Ext: +2/4 bilateral patellar, no clonus or edema ASSESSMENT/PLAN: 1. Encounter for supervision of normal in multigravida, antepartum 2. 27 weeks gestation of 3. headache in second trimester -preeclampsia labs ordered. BP stable at this time and no acute headache or floaters right now. Reviewed BP check daily and when to call. Preeclampsia signs and symptoms reviewed. 4. Vitreous floaters of both eyes PTL precautions reviewed and when to call RTO as scheduled Jennifer Delaney APRN.CNM [facility] 06-07-2025 History of Present illness Narrative HUNTER-S: Erwin Baldwin is a 30 year old female who presents at 27w0d with ALLEN:09/06/2025, by Last Menstrual Period for a problem visit. Complaint of headache yesterday and today on and off, mild, rating 3/10. Took BP at home and ws 120/89 and was concerned. Denies any other symptoms. Denies chest pain, shortness of breath, vaginal bleeding, leakage of fluid, or dysuria. O: See flow sheet Gen: No apparent distress Abd: Gravid, nontender Ext: +2/4 bilateral patellar, no clonus or edema ASSESSMENT/PLAN: 1. Encounter for supervision of normal in multigravida, antepartum 2. 27 weeks gestation of 3. headache in second trimester -preeclampsia labs ordered. BP stable at this time and no acute headache or floaters right now. Reviewed BP check daily and when to call. Preeclampsia signs and symptoms reviewed. 4. Vitreous floaters of both eyes PTL precautions reviewed and when to call RTO as scheduled Jennifer Delaney APRN.CNM documented in this encounter [facility] 06-07-2025 Instructions Kiesha Gibbs MA - 06/07/2025 3:27 PM EDT SEQUENTIAL SCREENINGS The [facility] offers sequential screenings for women who are interested in screenings for chromosomal abnormalities and certain defects during a . The sequential screen combines ultrasound and blood tests to determine the risk of chromosomal abnormalities, including Down's Syndrome (Trisomy 21) and Trisomy 18, as well as open neural tube defects including spina bifida. Ultrasound examination is performed between 11 weeks and 13 weeks gestational age. Blood tests are drawn after the ultrasound and again later in the between 15 and 21 weeks gestational age. Please let your physician know if you are interested in this testing. It will require an appointment with our turfgrass technician. This is not an ultrasound performed by a physician in our office during a routine visit. SIGNS AND SYMPTOMS OF LABOR 1. Contractions every 10 minutes or more often 2. Clear, pink, or brownish fluid (water) leaking from vagina 3. Feeling that baby is pushing down, pressure 4. Low, dull backache 5. Cramps that feel like a period 6. Cramps with or without diarrhea If you notice any of the above symptoms, contact our office at [phone] and ask to speak with a nurse. After hours, you can call doctors registry at [phone] OR call [facility] at [phone] and ask to have the doctor front counter attendant paged. If you consider this an emergency, dial 9-1- or go to your nearest emergency department. NEED HELP? Are you dealing with a violent or abusive relationship? Are you a victim of rape or sexual assult? Call [facility] ([place]) 24 hour Crisis Hotline: 470.201.9177 or 311-008-9320. MANUAL Your Guide to a Healthy manual is now on-line. Visit [email or web address] to download your free copy documented in this encounter [facility] 06-07-2025 Telephone encounter Note Spoke to patient. Spots in vision have been intermittent. No headache or RUQ pain. Scheduled for appt today with HUNTER. She needed late afternoon time. Gracia Anne RN [facility] 06-07-2025 Miscellaneous Notes Spoke to patient. Spots in vision have been intermittent. No headache or RUQ pain. Scheduled for appt today with HUNTER. She needed late afternoon time. Gracia Anne RN documented in this encounter [facility] 05-30-2025 Progress note Formatting of t his note might be different from the original. DM-Pt doing well. Denies vaginal Bleeding, Leaking fluid, or regular Contractions. Pt reports good movement Physical Exam: Gen: female in no apparent distress Abd: soft, Gravid. Non tender to palpation. See flow sheet @ 25.6 weeks Assessment & Plan Encounter for supervision of normal in multigravida, antepartum ([facility]) Prior macrosomia, antepartum, second trimester ([facility]) Planning repeat cs at 39 weeks Orders: OBSTETRIC ULTRASOUND WHI; Standing Obesity affecting in first trimester, unspecified obesity type ([facility]) Orders: OBSTETRIC ULTRASOUND WHI; Standing Screening for diabetes mellitus Orders: GESTATIONAL GLUCOSE SCREEN, 1-HOUR, 50 GRAM, NON-FASTING; Future Encounter for supervision of other normal in second trimester ([facility]) Orders: SYPHILIS TREPONEMAL W/REFLEX; Future ANEMIA REFLEX PANEL; Future 25 weeks gestation of ([facility]) RTO 2 week 28 week labs ordered Ivy Jones MD [facility] 05-30-2025 Miscellaneous Notes DM-Pt doing well. Denies vaginal Bleeding, Leaking fluid, or regular Contractions. Pt reports good movement Physical Exam: Gen: female in no apparent distress Abd: soft, Gravid. Non tender to palpation. See flow sheet @ 25.6 weeks Assessment & Plan Encounter for supervision of normal in multigravida, antepartum ([facility]) Prior macrosomia, antepartum, second trimester ([facility]) Planning repeat cs at 39 weeks Orders: OBSTETRIC ULTRASOUND WHI; Standing Obesity affecting in first trimester, unspecified obesity type ([facility]) Orders: OBSTETRIC ULTRASOUND WHI; Standing Screening for diabetes mellitus Orders: GESTATIONAL GLUCOSE SCREEN, 1-HOUR, 50 GRAM, NON-FASTING; Future Encounter for supervision of other normal in second trimester ([facility]) Orders: SYPHILIS TREPONEMAL W/REFLEX; Future ANEMIA REFLEX PANEL; Future 25 weeks gestation of ([facility]) RTO 2 week 28 week labs ordered Ivy Jones MD documented in this encounter [facility] 05-30-2025 Instructions Emile Velazquez MA - 05/30/2025 4:15 PM EDT SEQUENTIAL SCREENINGS The [facility] offers sequential screenings for women who are interested in screenings for chromosomal abnormalities and certain defects during a . The sequential screen combines ultrasound and blood tests to determine the risk of chromosomal abnormalities, including Down's Syndrome (Trisomy 21) and Trisomy 18, as well as open neural tube defects including spina bifida. Ultrasound examination is performed between 11 weeks and 13 weeks gestational age. Blood tests are drawn after the ultrasound and again later in the between 15 and 21 weeks gestational age. Please let your physician know if you are interested in this testing. It will require an appointment with our turfgrass technician. This is not an ultrasound performed by a physician in our office during a routine visit. SIGNS AND SYMPTOMS OF LABOR 1. Contractions every 10 minutes or more often 2. Clear, pink, or brownish fluid (water) leaking from vagina 3. Feeling that baby is pushing down, pressure 4. Low, dull backache 5. Cramps that feel like a period 6. Cramps with or without diarrhea If you notice any of the above symptoms, contact our office at [phone] and ask to speak with a nurse. After hours, you can call doctors registry at [phone] OR call [facility] at [phone] and ask to have the doctor front counter attendant paged. If you consider this an emergency, dial 05-23- or go to your nearest emergency department. NEED HELP? Are you dealing with a violent or abusive relationship? Are you a victim of rape or sexual assult? Call [facility] ([place]) 24 hour Crisis Hotline: 282.522.6899 or 963-935-4917. MANUAL Your Guide to a Healthy manual is now on-line. Visit [email or web address] to download your free copy documented in this encounter [facility] 05-02-2025 Progress note Formatting of t his note might be different from the original. DM-Pt doing well. Denies vaginal Bleeding, Leaking fluid, or regular Contractions. Pt reports good movement Physical Exam: Gen: female in no apparent distress Abd: soft, Gravid. Non tender to palpation. See flow sheet @ 21.6 weeks Assessment & Plan Encounter for supervision of normal in multigravida, antepartum (HCC) Prior macrosomia, antepartum, second trimester (HCC) Will need growth us in 3rd trimester Obesity affecting in first trimester, unspecified obesity type (HCC) Continue ASA History of gestational diabetes in prior , currently (HCC) 21 weeks gestation of (HCC) RTO 4 wks Ivy Jones MD [facility] 05-02-2025 Miscellaneous Notes DM-Pt doing well. Denies vaginal Bleeding, Leaking fluid, or regular Contractions. Pt reports good movement Physical Exam: Gen: female in no apparent distress Abd: soft, Gravid. Non tender to palpation. See flow sheet @ 21.6 weeks Assessment & Plan Encounter for supervision of normal in multigravida, antepartum (HCC) Prior macrosomia, antepartum, second trimester (HCC) Will need growth us in 3rd trimester Obesity affecting in first trimester, unspecified obesity type (HCC) Continue ASA History of gestational diabetes in prior , currently (HCC) 21 weeks gestation of (HCC) RTO 4 wks Ivy Jones MD documented in this encounter [facility] 05-02-2025 Instructions Emile Velazquez MA - 05/02/2025 8:27 AM EDT SEQUENTIAL SCREENINGS The [facility] offers sequential screenings for women who are interested in screenings for chromosomal abnormalities and certain defects during a . The sequential screen combines ultrasound and blood tests to determine the risk of chromosomal abnormalities, including Down's Syndrome (Trisomy 21) and Trisomy 18, as well as open neural tube defects including spina bifida. Ultrasound examination is performed between 11 weeks and 13 weeks gestational age. Blood tests are drawn after the ultrasound and again later in the between 15 and 21 weeks gestational age. Please let your physician know if you are interested in this testing. It will require an appointment with our turfgrass technician. This is not an ultrasound performed by a physician in our office during a routine visit. SIGNS AND SYMPTOMS OF LABOR 1. Contractions every 10 minutes or more often 2. Clear, pink, or brownish fluid (water) leaking from vagina 3. Feeling that baby is pushing down, pressure 4. Low, dull backache 5. Cramps that feel like a period 6. Cramps with or without diarrhea If you notice any of the above symptoms, contact our office at [phone] and ask to speak with a nurse. After hours, you can call doctors registry at [phone] OR call [facility] at [phone] and ask to have the doctor front counter attendant paged. If you consider this an emergency, dial 9-1-1 or go to your nearest emergency department. NEED HELP? Are you dealing with a violent or abusive relationship? Are you a victim of rape or sexual assult? Call [facility] ([place]) 24 hour Crisis Hotline: 831.859.2936 or 359-250-3671. MANUAL Your Guide to a Healthy manual is now on-line. Visit [email or web address] to download your free copy documented in this encounter [facility] 04-04-2025 Telephone encounter Note I already filled out surgery form- turned in yesterday. I believe 09/02/25- it is my surgery day so either 7;30 or 12 is fine. [facility] 04-04-2025 Miscellaneous Notes I already filled out surgery form- turned in yesterday. I believe 09/02/25- it is my surgery day so either 7;30 or 12 is fine. Did you need a surgery sheet? Gracia Anne RN documented in this encounter [facility] 04-04-2025 Telephone encounter Note Did you need a surgery sheet? Gracia Anne RN [facility] 04-04-2025 Progress note Formatting of t his note might be different from the original. DM-Pt doing well. Denies vaginal Bleeding, Leaking fluid, or regular Contractions. Pt reports good movement Physical Exam: Gen: female in no apparent distress Abd: soft, Gravid. Non tender to palpation. See flow sheet @ 17.6 weeks Assessment & Plan Encounter for supervision of normal in multigravida, antepartum (HCC) Prior macrosomia, antepartum, second trimester (HCC) Will need growth us 17 weeks gestation of ([facility]) Anatomy us scheduled RTO 4 wks Planning repeat cs- would like to consider TOLAC but understands if LGA/GMDA would not be good candidate. Dicussed TOLAC at tertiary care center. At this time patient would like to schedule 39 week repeat cs and will continue discussion as progresses. Ivy Jones MD [facility] 04-04-2025 Miscellaneous Notes DM-Pt doing well. Denies vaginal Bleeding, Leaking fluid, or regular Contractions. Pt reports good movement Physical Exam: Gen: female in no apparent distress Abd: soft, Gravid. Non tender to palpation. See flow sheet @ 17.6 weeks Assessment & Plan Encounter for supervision of normal in multigravida, antepartum ([facility]) Prior macrosomia, antepartum, second trimester (HCC) Will need growth us 17 weeks gestation of ([facility]) Anatomy us scheduled RTO 4 wks Planning repeat cs- would like to consider TOLAC but understands if LGA/GMDA would not be good candidate. Dicussed TOLAC at tertiary [facility]. At this time patient would like to schedule 39 week repeat cs and will continue discussion as progresses. Ivy Jones MD documented in this encounter [facility] 04-04-2025 Instructions Yenny Thakur MA - 04/04/2025 8:11 AM EDT SEQUENTIAL SCREENINGS The [facility] offers sequential screenings for women who are interested in screenings for chromosomal abnormalities and certain defects during a . The sequential screen combines ultrasound and blood tests to determine the risk of chromosomal abnormalities, including Down's Syndrome (Trisomy 21) and Trisomy 18, as well as open neural tube defects including spina bifida. Ultrasound examination is performed between 11 weeks and 13 weeks gestational age. Blood tests are drawn after the ultrasound and again later in the between 15 and 21 weeks gestational age. Please let your physician know if you are interested in this testing. It will require an appointment with our turfgrass technician. This is not an ultrasound performed by a physician in our office during a routine visit. SIGNS AND SYMPTOMS OF LABOR 1. Contractions every 10 minutes or more often 2. Clear, pink, or brownish fluid (water) leaking from vagina 3. Feeling that baby is pushing down, pressure 4. Low, dull backache 5. Cramps that feel like a period 6. Cramps with or without diarrhea If you notice any of the above symptoms, contact our office at [phone] and ask to speak with a nurse. After hours, you can call doctors registry at [phone] OR call [facility] at [phone] and ask to have the doctor front counter attendant paged. If you consider this an emergency, dial 9-1-2 or go to your nearest emergency department. NEED HELP? Are you dealing with a violent or abusive relationship? Are you a victim of rape or sexual assult? Call [facility] ([place]) 24 hour Crisis Hotline: 489.272.6050 or 751-158-8432. MANUAL Your Guide to a Healthy manual is now on-line. Visit [email or web address] to download your free copy documented in this encounter [facility] 03-18-2025 Telephone encounter Note Prescription Refill Information The patient has been identified by name and date of : Yes Caregiver verified no other encounters exist for this prescription request: Yes Caregiver confirmed with patient/requestor that no other refills are due, in the near future, with this provider at this time: Yes The last office visit in the department: 12/09/23 Does the patient have a future office visit with this provider/department: Yes Requested Prescriptions Pending Prescriptions Disp Refills ondansetron orally disintegrating (ZOFRAN ODT) 4 mg disintegrating tablet 20 tablet 1 Sig: Take 1 tablet by mouth every 8 hours as needed for nausea/vomiting. Torrie Balderas LPN March 18, 2025 10:56 AM [facility] 03-18-2025 Miscellaneous Notes Prescription Refill Information The patient has been identified by name and date of : Yes Caregiver verified no other encounters exist for this prescription request: Yes Caregiver confirmed with patient/requestor that no other refills are due, in the near future, with this provider at this time: Yes The last office visit in the department: 12/09/23 Does the patient have a future office visit with this provider/department: Yes Requested Prescriptions Pending Prescriptions Disp Refills ondansetron orally disintegrating (ZOFRAN ODT) 4 mg disintegrating tablet 20 tablet 1 Sig: Take 1 tablet by mouth every 8 hours as needed for nausea/vomiting. Torrie Balderas LPN March 18, 2025 10:56 AM documented in this encounter [facility] 02-28-2025 Progress note Formatting of t his note might be different from the original. SW- pt doing well. No pain, vb, lof PE: Gen- NAD, well appearing Abd- Obese See flowsheet A/p 12 wk gestation - Ultrasound today and final report pending - H/o thyroid nodule: TSH ordered with NOB labs - Discussed LDA - Patient desires NIPT after discussion - Complete NOB labs today - RTO 4 wks Ivy Ventura DO [facility] 02-28-2025 Miscellaneous Notes SW- pt doing well. No pain, vb, lof PE: Gen- NAD, well appearing Abd- Obese See flowsheet A/p 12 wk gestation - Ultrasound today and final report pending - H/o thyroid nodule: TSH ordered with NOB labs - Discussed LDA - Patient desires NIPT after discussion - Complete NOB labs today - RTO 4 wks Ivy Ventura DO documented in this encounter [facility] 02-28-2025 Instructions Yenny Thakur MA - 02/28/2025 10:23 AM EDT SEQUENTIAL SCREENINGS The [facility] offers sequential screenings for women who are interested in screenings for chromosomal abnormalities and certain defects during a . The sequential screen combines ultrasound and blood tests to determine the risk of chromosomal abnormalities, including Down's Syndrome (Trisomy 21) and Trisomy 18, as well as open neural tube defects including spina bifida. Ultrasound examination is performed between 11 weeks and 13 weeks gestational age. Blood tests are drawn after the ultrasound and again later in the between 15 and 21 weeks gestational age. Please let your physician know if you are interested in this testing. It will require an appointment with our turfgrass technician. This is not an ultrasound performed by a physician in our office during a routine visit. SIGNS AND SYMPTOMS OF LABOR 1. Contractions every 10 minutes or more often 2. Clear, pink, or brownish fluid (water) leaking from vagina 3. Feeling that baby is pushing down, pressure 4. Low, dull backache 5. Cramps that feel like a period 6. Cramps with or without diarrhea If you notice any of the above symptoms, contact our office at [phone] and ask to speak with a nurse. After hours, you can call doctors registry at [phone] OR call [facility] at [phone] and ask to have the doctor front counter attendant paged. If you consider this an emergency, dial 9--1 or go to your nearest emergency department. NEED HELP? Are you dealing with a violent or abusive relationship? Are you a victim of rape or sexual assult? Call [facility] ([place]) 24 hour Crisis Hotline: 903.982.1715 or 556-592-4769. MANUAL Your Guide to a Healthy manual is now on-line. Visit [email or web address] to download your free copy documented in this encounter [facility] 01-27-2025 Note HNO ID: [id number] Author: ROWENA HAWTHORNE APRN.CONTRACTS MANAGER Service: ? Author Type: Nurse Practitioner Type: Progress Notes Filed: 01/31/2025 08:55 Note Text: Patient declined chapshiv. INITIAL OB ASSESSMENT HPI: Erwin is a 29 year old White Female here to establish Obstetrical Care. Patient's last menstrual period was 11/30/2024. from OB Dating Form. was planned Complaints: No OB History Gravida3 Para1 Term1 Preterm0 AB1 Living1 SAB1 IAB0 Ectopic0 Multiple0 Live Births1 Previous history: Prior : Yes History of 4th degree laceration: No History of shoulder dystocia: No History of Hypertensive disorders including pre-eclampsia or gestational hypertension: No History of gestational diabetes: Yes Patient's Risk Screening for delivery: Have you had a prior langley between 20w and 36w6d? No How many pregnancies have you had before? 1 Did you have a previous baby with a GBS Infection? No Please select all that apply for any prior : Baby large for gestational age MEDICAL/PSYCHOSOCIAL HISTORY: History of hemorrhage or bleeding concerns: No Thyroid Disease: No History of chronic hypertension: No History of pre-existing diabetes: No No results found for: ABORHD BMI 34.89 kg/(m2) Last Pap: 09/11/2023 History of abnormal pap: Yes Prior treatment for cervical dysplasia: none. Last HPV: 09/12/2023 History of STDs: N/A Partner History of STDs: None Did you have a partner with Herpes? No Tobacco use: No E-Cigarette/Vaping Use: No Caffeine use: Yes Drug use: No Alcohol use: No Multivitamin with Folic acid: Yes Would refuse blood transfusion if medically necessary: No Social Needs: How often does this describe you? I don't have enough money to pay my bills: Never Within the past 12 months, have you worried that your food would run out before you had money to buy more? Never In the past 12 months, has lack of reliable transportation kept you from going to medical appointments or work, or from getting things needed for daily living? Never In the past 12 months, have you had any concerns about having a place to live, or about the condition or quality of your housing? Never Would you like more information on any of the following (please check all that apply)? Not interested Social History: Do you have any history of depression, anxiety, PTSD, or other mood problems? Yes Do you have a history of abuse or trauma that may impact your experience? No Are you currently employed? Yes Depression/Anxiety Screening: denies, admits to symptoms of depression. OB Depression and Anxiety Screening- This Encounter Over the past 2 weeks have you felt down, depressed, or hopeless? Negative Over the past two weeks, have you felt little interest or pleasure in doing things?? Negative Not being able to stop or control worrying 0-Not al all Genetic Screening: Partner present: No Patient verbalized knowledge of partner family health history: Yes Do you or your partner have any personal or family history of defects not previously discussed: No Do you have history of a complicated by anomaly, genetic condition, or demise: No Preeclampsia Risk Screening: Screening for prevention of preeclampsia: High risk factors: None Moderate risk ractors: Obesity (body mass index greater than 30) and Family history of pre-eclampsia (mother or sister) OB Risk Screening: Completed, no positive findings documented. Marital Status: Partner: Name: Sheila Age: 27 Occupation: [employer] Gender: Male PAST MEDICAL HISTORY Diagnosis Date Adjustment disorder 12/28/2012 Anxiety 12/28/2012 Gallstones with obstruction of gallbladder 2003 resolved (post surgery) Gestational diabetes mellitus, class A1 (HCC) 06/11/2022 Ill-defined closed fractures of upper limb 2004 Kidney calculus 07/25/2013 evaluated by urology Knee pain 06/08/2013 resolved Ovarian cyst 07/25/2013 resolved PMH - PAST MEDICAL HISTORY OF 05-02-2001 normal color vision Pneumonia 07/25/2013 bilateral lungs Respiratory syncytial virus (RSV) resolved Seasonal allergies 06/08/2013 thyroid nodule PAST SURGICAL HISTORY Procedure Laterality Date DELIVERY ONLY 08/14/2022 [facility] CHOLEYCYSTOGRAM GALL BLADDER 2004 removal EXTRACTION ERUPTED TOOTH/EXR Bilateral bottem NEPHROLITHOTOMY REMOVAL STAGE 1 06/12/2018 TONSILLECTOMY AND ADENOIDECTOMY TYMPANOSTOMY LOCAL/TOPICAL ANESTHESIA 02/1997 TYMPANOSTOMY LOCAL/TOPICAL ANESTHESIA 08/1999 Current Outpatient Medications Medication Sig Dispense Refill vit/iron fum/folic ac ( TABLET ORAL) Take 1 tablet by mouth once daily. sertraline (ZOLOFT) 100 mg tablet Take 1 tablet by mouth once daily. 90 tablet 3 ondansetron orally disintegrating (ZOFRAN ODT) 4 mg disintegrating tablet Take 1 (more content not included)... [facility] 01-27-2025 History of Present illness Narrative Patient declined chap[henry. INITIAL OB ASSESSMENT HPI: Erwin is a 29 year old White Female here to establish Obstetrical Care. Patient's last menstrual period was 11/30/2024. from OB Dating Form. was planned Complaints: No OB History Gravida3 Para1 Term1 Preterm0 AB1 Living1 SAB1 IAB0 Ectopic0 Multiple0 Live Births1 Previous history: Prior : Yes History of 4th degree laceration: No History of shoulder dystocia: No History of Hypertensive disorders including pre-eclampsia or gestational hypertension: No History of gestational diabetes: Yes Patient's Risk Screening for delivery: Have you had a prior langley between 20w and 36w6d? No How many pregnancies have you had before? 1 Did you have a previous baby with a GBS Infection? No Please select all that apply for any prior : Baby large for gestational age MEDICAL/PSYCHOSOCIAL HISTORY: History of hemorrhage or bleeding concerns: No Thyroid Disease: No History of chronic hypertension: No History of pre-existing diabetes: No No results found for: ABORHD BMI 34.89 kg/(m^2) Last Pap: 09/11/2023 History of abnormal pap: Yes Prior treatment for cervical dysplasia: none. Last HPV: 09/12/2023 History of STDs: N/A Partner History of STDs: None Did you have a partner with Herpes? No Tobacco use: No E-Cigarette/Vaping Use: No Caffeine use: Yes Drug use: No Alcohol use: No Multivitamin with Folic acid: Yes Would refuse blood transfusion if medically necessary: No Social Needs: How often does this describe you? I don't have enough money to pay my bills: Never Within the past 12 months, have you worried that your food would run out before you had money to buy more? Never In the past 12 months, has lack of reliable transportation kept you from going to medical appointments or work, or from getting things needed for daily living? Never In the past 12 months, have you had any concerns about having a place to live, or about the condition or quality of your housing? Never Would you like more information on any of the following (please check all that apply)? Not interested Social History: Do you have any history of depression, anxiety, PTSD, or other mood problems? Yes Do you have a history of abuse or trauma that may impact your experience? No Are you currently employed? Yes Depression/Anxiety Screening: denies, admits to symptoms of depression. OB Depression and Anxiety Screening- This Encounter Over the past 2 weeks have you felt down, depressed, or hopeless? Negative Over the past two weeks, have you felt little interest or pleasure in doing things? Negative Not being able to stop or control worrying 0-Not al all Genetic Screening: Partner present: No Patient verbalized knowledge of partner family health history: Yes Do you or your partner have any personal or family history of defects not previously discussed: No Do you have history of a complicated by anomaly, genetic condition, or demise: No Preeclampsia Risk Screening: Screening for prevention of preeclampsia: High risk factors: None Moderate risk ractors: Obesity (body mass index greater than 30) and Family history of pre-eclampsia (mother or sister) OB Risk Screening: Completed, no positive findings documented. Marital Status: Partner: Name: Sheila Age: 27 Occupation: [employer] Gender: Male PAST MEDICAL HISTORY Diagnosis Date Adjustment disorder 12/28/2012 Anxiety 12/28/2012 Gallstones with obstruction of gallbladder 2003 resolved (post surgery) Gestational diabetes mellitus, class A1 (HCC) 06/11/2022 Ill-defined closed fractures of upper limb 2004 Kidney calculus 07/25/2013 evaluated by urology Knee pain 06/08/2013 resolved Ovarian cyst 07/25/2013 resolved PMH - PAST MEDICAL HISTORY OF 05-02-2001 normal color vision Pneumonia 07/25/2013 bilateral lungs Respiratory syncytial virus (RSV) resolved Seasonal allergies 06/08/2013 thyroid nodule PAST SURGICAL HISTORY Procedure Laterality Date DELIVERY ONLY 08/14/2022 [facility] CHOLEYCYSTOGRAM GALL BLADDER 2004 removal EXTRACTION ERUPTED TOOTH/EXR Bilateral bottem NEPHROLITHOTOMY REMOVAL STAGE 1 06/12/2018 TONSILLECTOMY & ADENOIDECTOMY <AGE 12 04/2001 TYMPANOSTOMY LOCAL/TOPICAL ANESTHESIA 02/1997 TYMPANOSTOMY LOCAL/TOPICAL ANESTHESIA 08/1999 Current Outpatient Medications Medication Sig Dispense Refill vit/iron fum/folic ac ( TABLET ORAL) Take 1 tablet by mouth once daily. sertraline (ZOLOFT) 100 mg tablet Take 1 tablet by mouth once daily. 90 tablet 3 ondansetron orally disintegrating (ZOFRAN ODT) 4 mg disintegrating tablet Take 1 tablet by mouth every 8 hours as needed for nausea/vomiting. 20 tablet 1 aspirin, enteric coated (ECOTRIN LOW STRENGTH) 81 mg EC tablet Take 1 tablet by mouth once daily. 90 tablet 3 No current facility-administered medications for this visit. Allergies As of Date: 01/31/2025 Allergen Noted Reaction ROCEPHIN [CEFTRIAXONE] 06/18/2005 Hives and Shortness of Breath Fully Assessed 01/31/2025 Does patient have penicillin allergy: No Per patient she was given something else because of an allergy to Rocephin. REVIEW OF SYSTEMS: GENERAL: Negative for: Fever or Chills HEENT: Negative for: Headache, Impaired Vision, Ringing in Ears, Nosebleeds NECK: Negative for: Swelling, Pain, Stiffness RESPIRATORY: Negative for: Cough, Shortness of breath, Wheezing GASTROINTESTINAL: Negative for: Heartburn, Constipation, Diarrhea, Blood in stool, Vomiting and Positive for: Nausea MUSCULOSKELETAL: Negative for: Muscle or joint pain, stiffness, Joint swelling NEUROLOGIC/PSYCHIATRIC: Negative for: Weakness, Paralysis, Numbness, Tingling, Tremor, Anxiety, Depression, Memory loss SKIN: Negative for: Rash, Itching GENITOURINARY: Negative for: vaginal itching, vaginal discharge, hematuria or dysuria SENSITIVE EXAM: The sensitive examination was discussed with the Patient or Patient's Authorized Manufacturing Sales Representative. As applicable, any other physician, advance practice provider, medical student, or other health professional student that will be observing or involved in the sensitive examination for educational or training purposes was discussed with the Patient or Authorized Manufacturing Sales Representative. The Patient or Authorized Manufacturing Sales Representative has agreed to proceed with the sensitive examination. (Sensitive examination includes inspection and/or palpation of the breasts, pelvis, prostate and anorectal regions). PHYSICAL EXAM: BP 118/64 Ht 5' 2.205 (1.58m) Wt 192 lb (87.1kg) LMP 11/30/2024 BMI 34.89 kg/(m^2). GENERAL: pleasant in no apparent distress DERMATOLOGY: Normal, without lesions, non-icteric, and non-hirsute NECK: Supple, full range of motion, no adenopathy, and thyroid normal CHEST: Normal inspiratory effort BREAST: soft, non-tender, symmetric, no dominant mass, normal nipple-areolar complex, no lymphadenopathy, and no nipple discharge ABDOMEN: soft, non-tender, and no masses NEURO: alert and oriented x3,exam grossly non-focal PELVIS: External genitalia normal without lesions. Perineal body intact. No vaginal or cervical lesions. Cervix closed. No adnexal masses or tenderness. Clinical Pelvimetry: Pelvimetry clinically assessed as adequate Limited OB ultrasound exam: single intrauterine and POCUS performed. +cardiac activity, CRL consistent with LMP. *8 days different did not change ALLEN at this time, will confirm with next US in 4 weeks Rowena Hawthorne APRN.CNP ASSESSMENT: 29 year old at 8w6d wks gestational age PLAN: 1) Patient oriented to practice. Patient given new OB orientation folder. Discussed nutrition, folic acid supplementation, dietary guidelines, exercise, smoking, alcohol, caffeine, and drug use. Discussed gestational weight gain guidelines. Discussed routine OB labs including STD/HIV. Discussed how to access Your guide to a health and the [employer]. Reviewed midwifery and computer technology trainer services that are available. 2) Screening: Hemoglobin A1C: ordered Baby Aspirin: The patient has been counseled about the potential benefits of low dose aspirin in and our recommendation that this be offered to all patients, regardless of whether they meet the high risk criteria specified above. She Accepts Aneuploidy Screening: Discussed aneuploidy screening, nuchal translucency/first trimester early anatomy ultrasound and NIPT. The risks/benefits and limitations of NIPT/aneuploidy screening were reviewed including the potential for false negative and false positive results. The availability of genetic counseling was reviewed. Information on aneuploidy screening was provided. The patient chooses to proceed with First trimester early anatomy ultrasound (12-13w6d) Myriad Carrier Screening: Discussed myriad carrier screening. We discussed the availability of professional-society guided carrier screening and reviewed the conditions screened and limitations of screening. The availability of genetic counseling was reviewed. Information on carrier screening was provided. The patient Declines 3) Patient offered option of Virtual Visits. Patient unsure. May consider in future. 4) History of section: Pt counselled regarding TOLAC versus Repeat Section. Pt wants to consider options.. History of diabetes: GDM A1 Given pre gestational diabetes, ordered Hemoglobin A1C, TSH, CMP, PCR and MFM consult Obesity (BMI >30), will order early glucose screen or Hemoglobin A1C. 5) 8 days different did not change ALLEN at this time, will confirm with next US in 4 weeks Follow up in 4 weeks or sooner prn. Rowena Hawthorne APRN.CNP documented in this encounter [facility] 01-27-2025 Instructions Beckie Woodruff LPN - 01/27/2025 1:47 PM EDT Please select the following link to access the [facility] Your Guide to a Healthy . [email or web address] Please select the following link to access the [facility] Your Guide to a Healthy . [email or web address] documented in this encounter [facility] 01-10-2025 Telephone encounter Note No need for further hcg levels at this time - unless bleeding. [facility] 01-10-2025 Miscellaneous Notes No need for further hcg levels at this time - unless bleeding. documented in this encounter [facility] 01-05-2025 Telephone encounter Note Please let her know that her labs are overall great/stable except her vitamin D levels are too low- needs to increase her vitamin D intake by [id number] international unit(s) a day with a meal. Also needs to start considering to increase her Vitamin B12 rich foods or start a low dose supplement at 500-1000 mcg a day of vitamin B12 in AM Kaden Meyer DO [facility] 01-05-2025 Miscellaneous Notes Please let her know that her labs are overall great/stable except her vitamin D levels are too low- needs to increase her vitamin D intake by [phone] international unit(s) a day with a meal. Also needs to start considering to increase her Vitamin B12 rich foods or start a low dose supplement at 500-1000 mcg a day of vitamin B12 in AM Kaden Meyer DO documented in this encounter [facility] 01-04-2025 Note HNO ID: [id number] Author: IVY ALBARRAN MD Service: ? Author Type: Physician Type: Progress Notes Filed: 01/04/2025 12:29 Note Text: VIRTUAL VISIT PROGRESS NOTE This is a virtual visit using [employer] Video Visit. It required patient-provider interaction for the medical decision making as documented below. I have communicated my name and active licensure. The patient's identity and physical location were verified at the time of this visit. Either the patient or their legal bilingual call center representative has been informed of the risks and benefits of -- and alternatives to -- treatment through a remote evaluation and consents to proceed with the evaluation remotely. Erwin Baldwin is a 29 year old female seen for early concerns. Pt took femara for infertility/anovulation and had positive test- hcg levels trending up appropriately. Pt questioning if progesterone level of 8 is concerning. Pt denies vaginal bleeding or pain. Pt is taking PNV. HISTORY REVIEWED (electronic chart updated): PAST MEDICAL HISTORY Diagnosis Date Adjustment disorder 12/28/2012 Anxiety 12/28/2012 Gallstones with obstruction of gallbladder 2003 resolved (post surgery) Gestational diabetes mellitus, class A1 06/11/2022 Ill-defined closed fractures of upper limb 2005 Kidney calculus 07/25/2013 evaluated by urology Knee pain 06/08/2013 resolved Ovarian cyst 07/25/2013 resolved PMH - PAST MEDICAL HISTORY OF 05-02-2001 normal color vision Pneumonia 07/25/2013 bilateral lungs Respiratory syncytial virus (RSV) resolved Seasonal allergies 06/08/2013 thyroid nodule PAST SURGICAL HISTORY Procedure Laterality Date DELIVERY ONLY 08/14/2022 LTCS CHOLEYCYSTOGRAM GALL BLADDER 2004 removal EXTRACTION ERUPTED TOOTH/EXR Bilateral bottem NEPHROLITHOTOMY REMOVAL STAGE 1 06/12/2018 TONSILLECTOMY AND ADENOIDECTOMY TYMPANOSTOMY LOCAL/TOPICAL ANESTHESIA 02/1997 TYMPANOSTOMY LOCAL/TOPICAL ANESTHESIA 08/1999 FAMILY HISTORY Problem Relation Age of Onset Heart Mother Thyroid Mother thyroid cancer other (Hypotension) Mother other (Migraine) Mother other (HELLP) Mother Hypertension Father No Known Problems Brother Thyroid Maternal Grandmother Hypertension Maternal Grandmother Breast Cancer Maternal Grandmother 73 Hypertension Maternal Grandfather Diabetes Maternal Grandfather Heart Maternal Grandfather other (Migraine) Maternal Grandfather Heart Paternal Grandmother Thyroid Paternal Grandmother No Known Problems Paternal Grandfather Thyroid Maternal Aunt other (Migraine) Maternal Uncle other (Migraine) Other Maternal cousin Social History Tobacco Use Smoking status: Never Smokeless tobacco: Never Tobacco comments: pt does not smoke Vaping Use Vaping status: Never Used Substance Use Topics Alcohol use: Not Currently Comment: occasional Drug use: No Current Outpatient Medications Medication Sig letrozole (FEMARA) 2.5 mg tablet Take 2 tablets by mouth once daily for 5 days. On cycle days 3-7 sertraline (ZOLOFT) 100 mg tablet Take 1 tablet by mouth once daily. ondansetron orally disintegrating (ZOFRAN ODT) 4 mg disintegrating tablet Take 1 tablet by mouth every 8 hours as needed for nausea/vomiting. azithromycin (ZITHROMAX Z-EVELYN) 250 mg tablet Take 2 tablets PO day 1, THEN 1 TAB DAILY FOR 4 DAYS. doxycycline hyclate (VIBRAMYCIN) 100 mg capsule Take 1 capsule (100 mg) by mouth two times a day. No current facility-administered medications for this visit. ALLERGIES Allergen Reactions Rocephin [Ceftriaxo* Hives, Shortness of Breath REVIEW OF SYSTEMS: GENERAL: feeling well. No bleeding PHYSICAL EXAMINATION: VIDEO EXAM: (if completed, performed via video enabled technology) Happy and smiling ASSESSMENT: (Z34.90) Early stage of (HCC) (primary encounter diagnosis) Exogenous Class 1 Obesity PLAN: Pt requesting HCG level - one more to make sure rising approximately - discussed progesterone level or supplementation not indicated - bleeding precautions reviewed - continue PNV - RTO for routine care There are no Patient Instructions on file for this visit. Medical Decision Making: Problems: Low: Acute, uncomplicated illness or injury Data: Unique test(s) ordered: 1 Risk: Low: Low risk from testing/treatment Medical Decision Making Level: 3 - Low Ivy Jones MD [facility] 01-04-2025 History of Present illness Narrative VIRTUAL VISIT PROGRESS NOTE This is a virtual visit using [employer] Video Visit. It required patient-provider interaction for the medical decision making as documented below. I have communicated my name and active licensure. The patient's identity and physical location were verified at the time of this visit. Either the patient or their legal bilingual call center representative has been informed of the risks and benefits of -- and alternatives to -- treatment through a remote evaluation and consents to proceed with the evaluation remotely. Erwin Baldwin is a 29 year old female seen for early concerns. Pt took femara for infertility/anovulation and had positive test- hcg levels trending up appropriately. Pt questioning if progesterone level of 8 is concerning. Pt denies vaginal bleeding or pain. Pt is taking PNV. HISTORY REVIEWED (electronic chart updated): PAST MEDICAL HISTORY Diagnosis Date Adjustment disorder 12/28/2012 Anxiety 12/28/2012 Gallstones with obstruction of gallbladder 2003 resolved (post surgery) Gestational diabetes mellitus, class A1 06/11/2022 Ill-defined closed fractures of upper limb 2004 Kidney calculus 07/25/2013 evaluated by urology Knee pain 06/08/2013 resolved Ovarian cyst 07/25/2013 resolved PMH - PAST MEDICAL HISTORY OF 05-02-2001 normal color vision Pneumonia 07/25/2013 bilateral lungs Respiratory syncytial virus (RSV) resolved Seasonal allergies 06/08/2013 thyroid nodule PAST SURGICAL HISTORY Procedure Laterality Date DELIVERY ONLY 08/14/2022 LTCS CHOLEYCYSTOGRAM GALL BLADDER 2004 removal EXTRACTION ERUPTED TOOTH/EXR Bilateral bottem NEPHROLITHOTOMY REMOVAL STAGE 1 06/12/2018 TONSILLECTOMY & ADENOIDECTOMY <AGE 12 04/2001 TYMPANOSTOMY LOCAL/TOPICAL ANESTHESIA 02/1997 TYMPANOSTOMY LOCAL/TOPICAL ANESTHESIA 08/1999 FAMILY HISTORY Problem Relation Age of Onset Heart Mother Thyroid Mother thyroid cancer other (Hypotension) Mother other (Migraine) Mother other (HELLP) Mother Hypertension Father No Known Problems Brother Thyroid Maternal Grandmother Hypertension Maternal Grandmother Breast Cancer Maternal Grandmother 73 Hypertension Maternal Grandfather Diabetes Maternal Grandfather Heart Maternal Grandfather other (Migraine) Maternal Grandfather Heart Paternal Grandmother Thyroid Paternal Grandmother No Known Problems Paternal Grandfather Thyroid Maternal Aunt other (Migraine) Maternal Uncle other (Migraine) Other Maternal cousin Social History Tobacco Use Smoking status: Never Smokeless tobacco: Never Tobacco comments: pt does not smoke Vaping Use Vaping status: Never Used Substance Use Topics Alcohol use: Not Currently Comment: occasional Drug use: No Current Outpatient Medications Medication Sig letrozole (FEMARA) 2.5 mg tablet Take 2 tablets by mouth once daily for 5 days. On cycle days 3-7 sertraline (ZOLOFT) 100 mg tablet Take 1 tablet by mouth once daily. ondansetron orally disintegrating (ZOFRAN ODT) 4 mg disintegrating tablet Take 1 tablet by mouth every 8 hours as needed for nausea/vomiting. azithromycin (ZITHROMAX Z-EVELYN) 250 mg tablet Take 2 tablets PO day 1, THEN 1 TAB DAILY FOR 4 DAYS. doxycycline hyclate (VIBRAMYCIN) 100 mg capsule Take 1 capsule (100 mg) by mouth two times a day. No current facility-administered medications for this visit. ALLERGIES Allergen Reactions Rocephin [Ceftriaxo* Hives, Shortness of Breath REVIEW OF SYSTEMS: GENERAL: feeling well. No bleeding PHYSICAL EXAMINATION: VIDEO EXAM: (if completed, performed via video enabled technology) Happy and smiling ASSESSMENT: (Z34.90) Early stage of (HCC) (primary encounter diagnosis) Exogenous Class 1 Obesity PLAN: Pt requesting HCG level - one more to make sure rising approximately - discussed progesterone level or supplementation not indicated - bleeding precautions reviewed - continue PNV - RTO for routine care There are no Patient Instructions on file for this visit. Medical Decision Making: Problems: Low: Acute, uncomplicated illness or injury Data: Unique test(s) ordered: 1 Risk: Low: Low risk from testing/treatment Medical Decision Making Level: 3 - Low Ivy Jones MD documented in this encounter [facility] 01-04-2025 Telephone encounter Note Patient has NOB already scheduled. Hellen Snyder RN [facility] 01-04-2025 Miscellaneous Notes Patient has NOB already scheduled. Hellen Snyder RN Excellent, congrats! Trending up appropriately. Schedule for new ob visit. hCG Quantitative, Blood Date Value 01/03/2025 122.5 mIU/mL 01/01/2025 54.8 mIU/mL Please see Result f/u note from 01/03/25 with Pt's questions.Pt has virtual visit with DM today at 11:40am. Diane Fraga RN Pt notified to get completed Friday01/01/25 and Friday01/03/25. Please keep open for results. Diane Fraga RN LMP 11/30/24 Pt was prescribed letrozole (FEMARA) 2.5 mg tablet started taking 12/04/24 and ovulated on day 20. Just took test and got a positive. Denies vaginal bleeding. Last was an early miscarriage and Pt is very anxious and asking if HCG levels can be checked-Pt would like to get checked tomorrow morning. HCG orders pending. Please file if appropriate and will contact Pt. Diane Fraga RN documented in this encounter [facility] 01-04-2025 Telephone encounter Note Excellent, congrats! Trending up appropriately. Schedule for new ob visit. [facility] 01-04-2025 Telephone encounter Note hCG Quantitative, Blood Date Value 01/03/2025 122.5 mIU/mL 01/01/2025 54.8 mIU/mL Please see Result f/u note from 01/03/25 with Pt's questions.Pt has virtual visit with DM today at 11:40am. Diane Fraga RN [facility] 12-31-2024 Telephone encounter Note Pt notified to get completed Friday01/01/25 and Friday01/03/25. Please keep open for results. Diane Fraga RN [facility] 12-31-2024 Telephone encounter Note LMP 11/30/24 Pt was prescribed letrozole (FEMARA) 2.5 mg tablet started taking 12/04/24 and ovulated on day 20. Just took test and got a positive. Denies vaginal bleeding. Last was an early miscarriage and Pt is very anxious and asking if HCG levels can be checked-Pt would like to get checked tomorrow morning. HCG orders pending. Please file if appropriate and will contact Pt. Diane Fraga RN [facility] 12-08-2024 Note HNO ID: [id number] Author: KADEN MEYER, DO Service: ? Author Type: Physician Type: Progress Notes Filed: 12/08/2024 18:33 Note Text: CC: Erwin Baldwin is a 29 year old female who presents to the office for physical HPI: Overall she is doing well She is in the process of work up and assessment with [facility] for difficulty with getting over the last 16 months. She is taking femara as needed at this time. She had normal pelvic US She hasn't had her get testing yet. PAST MEDICAL HISTORY Diagnosis Date Adjustment disorder 12/28/2012 Anxiety 12/28/2012 Gallstones with obstruction of gallbladder 2003 resolved (post surgery) Gestational diabetes mellitus, class A1 06/11/2022 Ill-defined closed fractures of upper limb 2004 Kidney calculus 07/25/2013 evaluated by urology Knee pain 06/08/2013 resolved Ovarian cyst 07/25/2013 resolved PMH - PAST MEDICAL HISTORY OF 05-02-2001 normal color vision Pneumonia 07/25/2013 bilateral lungs Respiratory syncytial virus (RSV) resolved Seasonal allergies 06/08/2013 thyroid nodule PAST SURGICAL HISTORY Procedure Laterality Date DELIVERY ONLY 08/14/2022 LTCS CHOLEYCYSTOGRAM GALL BLADDER 2004 removal EXTRACTION ERUPTED TOOTH/EXR Bilateral bottem NEPHROLITHOTOMY REMOVAL STAGE 1 06/12/2018 TONSILLECTOMY AND ADENOIDECTOMY TYMPANOSTOMY LOCAL/TOPICAL ANESTHESIA 02/1997 TYMPANOSTOMY LOCAL/TOPICAL ANESTHESIA 08/1999 Social History: Social History Tobacco Use Smoking status: Never Smokeless tobacco: Never Tobacco comments: pt does not smoke Vaping Use Vaping status: Never Used Substance Use Topics Alcohol use: Not Currently Comment: occasional Drug use: No FAMILY HISTORY Problem Relation Age of Onset Heart Mother Thyroid Mother thyroid cancer other (Hypotension) Mother other (Migraine) Mother other (HELLP) Mother Hypertension Father No Known Problems Brother Thyroid Maternal Grandmother Hypertension Maternal Grandmother Breast Cancer Maternal Grandmother 73 Hypertension Maternal Grandfather Diabetes Maternal Grandfather Heart Maternal Grandfather other (Migraine) Maternal Grandfather Heart Paternal Grandmother Thyroid Paternal Grandmother No Known Problems Paternal Grandfather Thyroid Maternal Aunt other (Migraine) Maternal Uncle other (Migraine) Other Maternal cousin Current Outpatient prescriptions: sertraline (ZOLOFT) 100 mg tablet Take 1 tablet by mouth once daily. letrozole (FEMARA) 2.5 mg tablet Take on Cycle Days 3-7 ondansetron orally disintegrating (ZOFRAN ODT) 4 mg disintegrating tablet Take 1 tablet by mouth every 8 hours as needed for nausea/vomiting. azithromycin (ZITHROMAX Z-EVELYN) 250 mg tablet Take 2 tablets PO day 1, THEN 1 TAB DAILY FOR 4 DAYS. doxycycline hyclate (VIBRAMYCIN) 100 mg capsule Take 1 capsule (100 mg) by mouth two times a day. Allergies: ALLERGIES Allergen Reactions Rocephin [Ceftriaxo* Hives, Shortness of Breath ROS: See HPI PE: 12/08/24 1720 BP: 100/60 Pulse: 80 Resp: 16 Temp: 36.4 ?C (97.6 ?F) TempSrc: Right Tympanic Weight: 85.3 kg (188 lb) Height: 158 cm (5' 2.21) Gen: AANDO, NAD, non-toxic appearing, Pleasant, cooperative HEENT: NT/AC, PERRLA, EOMs intact b/l, nares clear and patent b/l, pharynx without erythema, exudate or lesions. Uvula midline. EACs without erythema or debris. TMs pearly davies with intact landmarks b/l. Neck: supple, No cervical LAD, no thyromegaly, no carotid bruits CV: RRR, normal S1 and S2, no murmurs, no gallops, no rubs, Pulses 2+ and symmetric in UE and LE b/l Lungs: normal respiratory effort, CTA b/l, no wheezing or rhonchi or rales Abd: soft, NT, ND, +BS, no hepatosplenomegaly MS: FROM all 4 extremities Neuro: CN II-XII intact b/l, strength 5/5 b/l UE and LE, DTRs 2/4 UE and LE, sensation intact. Skin: warm, dry, intact, No rashes or lesions on exposed skin. No edema, normal pulses ASSESSMENT/PLAN: 1. Well adult exam - ICD9: V70.0, ICD10: Z00.00 - Counseled on healthy diet and regular exercise - THYROID STIMULATING HORMONE - T4 FREE/FREE THYROXINE - T3, FREE - COMPREHENSIVE METABOLIC PANEL - COMPLETE BLOOD COUNT AND DIFFERENTIAL - HEMOGLOBIN A1C - VITAMIN D 25 HYDROXY - VITAMIN B12 Kaden Meyer DO To ER if develops chest pain, shortness of breath, or severe worsening of symptoms. Discussed risks, benefits, alternatives, and potential side effects of medications. Patient expressed understanding and agreed with the plan. Kaden Meyer DO [address] [place] [address] [facility] 12-08-2024 History of Present illness Narrative CC: Erwin Baldwin is a 29 year old female who presents to the office for physical HPI: Overall she is doing well She is in the process of work up and assessment with [facility] for difficulty with getting over the last 16 months. She is taking femara as needed at this time. She had normal pelvic US She hasn't had her get testing yet. PAST MEDICAL HISTORY Diagnosis Date Adjustment disorder 12/28/2012 Anxiety 12/28/2012 Gallstones with obstruction of gallbladder 2003 resolved (post surgery) Gestational diabetes mellitus, class A1 06/11/2022 Ill-defined closed fractures of upper limb 2005 Kidney calculus 07/25/2013 evaluated by urology Knee pain 06/08/2013 resolved Ovarian cyst 07/25/2013 resolved PMH - PAST MEDICAL HISTORY OF 05-02-2001 normal color vision Pneumonia 07/25/2013 bilateral lungs Respiratory syncytial virus (RSV) resolved Seasonal allergies 06/08/2013 thyroid nodule PAST SURGICAL HISTORY Procedure Laterality Date DELIVERY ONLY 08/14/2022 LTCS CHOLEYCYSTOGRAM GALL BLADDER 2004 removal EXTRACTION ERUPTED TOOTH/EXR Bilateral bottem NEPHROLITHOTOMY REMOVAL STAGE 1 06/12/2018 TONSILLECTOMY & ADENOIDECTOMY <AGE 13 04/2001 TYMPANOSTOMY LOCAL/TOPICAL ANESTHESIA 02/1997 TYMPANOSTOMY LOCAL/TOPICAL ANESTHESIA 08/1999 Social History: Social History Tobacco Use Smoking status: Never Smokeless tobacco: Never Tobacco comments: pt does not smoke Vaping Use Vaping status: Never Used Substance Use Topics Alcohol use: Not Currently Comment: occasional Drug use: No FAMILY HISTORY Problem Relation Age of Onset Heart Mother Thyroid Mother thyroid cancer other (Hypotension) Mother other (Migraine) Mother other (HELLP) Mother Hypertension Father No Known Problems Brother Thyroid Maternal Grandmother Hypertension Maternal Grandmother Breast Cancer Maternal Grandmother 73 Hypertension Maternal Grandfather Diabetes Maternal Grandfather Heart Maternal Grandfather other (Migraine) Maternal Grandfather Heart Paternal Grandmother Thyroid Paternal Grandmother No Known Problems Paternal Grandfather Thyroid Maternal Aunt other (Migraine) Maternal Uncle other (Migraine) Other Maternal cousin Current Outpatient prescriptions: sertraline (ZOLOFT) 100 mg tablet Take 1 tablet by mouth once daily. letrozole (FEMARA) 2.5 mg tablet Take on Cycle Days 3-7 ondansetron orally disintegrating (ZOFRAN ODT) 4 mg disintegrating tablet Take 1 tablet by mouth every 8 hours as needed for nausea/vomiting. azithromycin (ZITHROMAX Z-EVELYN) 250 mg tablet Take 2 tablets PO day 1, THEN 1 TAB DAILY FOR 4 DAYS. doxycycline hyclate (VIBRAMYCIN) 100 mg capsule Take 1 capsule (100 mg) by mouth two times a day. Allergies: ALLERGIES Allergen Reactions Rocephin [Ceftriaxo* Hives, Shortness of Breath ROS: See HPI PE: 12/08/24 1720 BP: 100/60 Pulse: 80 Resp: 16 Temp: 36.4 C (97.6 F) TempSrc: Right Tympanic Weight: 85.3 kg (188 lb) Height: 158 cm (5' 2.21) Gen: A&O, NAD, non-toxic appearing, Pleasant, cooperative HEENT: NT/AC, PERRLA, EOMs intact b/l, nares clear and patent b/l, pharynx without erythema, exudate or lesions. Uvula midline. EACs without erythema or debris. TMs pearly davies with intact landmarks b/l. Neck: supple, No cervical LAD, no thyromegaly, no carotid bruits CV: RRR, normal S1 and S2, no murmurs, no gallops, no rubs, Pulses 2+ and symmetric in UE and LE b/l Lungs: normal respiratory effort, CTA b/l, no wheezing or rhonchi or rales Abd: soft, NT, ND, +BS, no hepatosplenomegaly MS: FROM all 4 extremities Neuro: CN II-XII intact b/l, strength 5/5 b/l UE and LE, DTRs 2/4 UE and LE, sensation intact. Skin: warm, dry, intact, No rashes or lesions on exposed skin. No edema, normal pulses ASSESSMENT/PLAN: 1. Well adult exam - ICD9: V70.0, ICD10: Z00.00 - Counseled on healthy diet and regular exercise - THYROID STIMULATING HORMONE - T4 FREE/FREE THYROXINE - T3, FREE - COMPREHENSIVE METABOLIC PANEL - COMPLETE BLOOD COUNT AND DIFFERENTIAL - HEMOGLOBIN A1C - VITAMIN D 25 HYDROXY - VITAMIN B12 Kaden Meyer DO To ER if develops chest pain, shortness of breath, or severe worsening of symptoms. Discussed risks, benefits, alternatives, and potential side effects of medications. Patient expressed understanding and agreed with the plan. Kaden Meyer DO [address] [place] [address] documented in this encounter [facility] 12-01-2024 Telephone encounter Note I spent a total of 5 minutes on the date of the service which included completing clinical documentation, obtaining and/or reviewing separately obtained history, and ordering medications, tests, or procedures. [facility] 12-01-2024 Miscellaneous Notes I spent a total of 5 minutes on the date of the service which included completing clinical documentation, obtaining and/or reviewing separately obtained history, and ordering medications, tests, or procedures. documented in this encounter [facility] 10-19-2024 Note Indication Evaluation of abnormal uterine bleeding: dysmenorrhea, excessive bleeding in premenopausal period Impression The contour of the uterus and the endometrial cavity were evaluated with 3-D imaging. Findings are suggestive of arcuate uterus. The uterus is anteverted and measures 75 mm x 39 mm x 45 mm. The endometrial thickness is 10.3 mm. The right ovary measures 44 mm x 22 mm x 17 mm. The left ovary measures 42 mm x 18 mm x 20 mm. There is no free fluid visualized. Technique: Three dimensional imaging was created on a dedicated stand-alone 3D workstation with images created and archived, and supervised and reviewed by the interpreting physician utilizing images from a US Scan performed on 10/19/24. Recommendations Arcuate uterus. History Medical History Surgery: section Menstrual History LMP on 09/27/2024. Cycle: regular cycle. Contraception: none Method Transabdominal, transvaginal, 3D ultrasound examination, Color Doppler examination. View: Adequate visualization Uterus Uterus: Visualized Uterus position: anteverted Description of uterine malformations: arcuate Myometrium: normal Endometrium: three-layer pattern Cervix details: normal Uterus length 75 mm Uterus width 45 mm Uterus height 39 mm Uterus Vol 70.2 cm Endometrial thickness, total 10.3 mm Fibroids: No fibroids identified Polyps: No polyps identified Right Ovary Rt ovary: Visualized Rt ovary morphology: premenopausal with dominant follicle Rt ovary D1 44 mm Rt ovary D2 22 mm Rt ovary D3 17 mm Rt ovary Vol 8.4 cm Rt ovarian cyst(s): No cysts identified Rt ovarian follicle(s): Follicles identified Left Ovary Lt ovary: Visualized Lt ovary morphology: premenopausal normal follicular Lt ovary D1 42 mm Lt ovary D2 18 mm Lt ovary D3 20 mm Lt ovary Vol 8.0 cm Lt ovarian cyst(s): No cysts identified Cul de Sac Visualized. no free fluid visualized Procedure To characterize the arcuate uterus, three dimensional imaging was created on a dedicated stand-alone 3D workstation with images created and archived, and supervised and reviewed by the interpreting physician utilizing images from an ultrasound scan performed today. Performed By: Moriah Melendez RDMS Read By: Juan C Solomon M.D. [facility] 10-19-2024 Note HNO ID: [id number] Author: JUAN C SOLOMON MD Service: ? Author Type: Physician Type: Progress Notes Filed: 10/19/2024 14:44 Note Text: The patient presents for requested ultrasound. Full report available in the Imaging tab in [facility]. Juan C Solomon MD [facility] 10-19-2024 History of Present illness Narrative The patient presents for requested ultrasound. Full report available in the Imaging tab in [employer]. Juan C Solomon MD documented in this encounter [facility] 10-14-2024 Note HNO ID: [id number] Author: IVY ALBARRAN MD Service: ? Author Type: Physician Type: Progress Notes Filed: 10/14/2024 14:01 Note Text: VIRTUAL VISIT PROGRESS NOTE This is a virtual visit using [employer] Video Visit. It required patient-provider interaction for the medical decision making as documented below. I have communicated my name and active licensure. The patient's identity and physical location were verified at the time of this visit. Either the patient or their legal bilingual call center representative has been informed of the risks and benefits of -- and alternatives to -- treatment through a remote evaluation and consents to proceed with the evaluation remotely. Erwin Baldwin is a 29 year old female seen for infertility. Cycles are 30-32 days with 4-5 days of moderate flow. Last cycle was heavier and more painful then usual. Her mother does have h/o endometriosis and this does cause some concern. She denies h/o Pelvic infection or current concerns. Pt reports no changes in health history for her or . Pt reports it took about 7 months for first . They did get in november but had miscarriage very early. Pt denies smoking or any changes in medications. Pt reports been trying for 14 months- using home home ovulation prediction kits which indicates ovulation around day 16-18. Pt offers no other concerns. HISTORY REVIEWED (electronic chart updated): PAST MEDICAL HISTORY Diagnosis Date Adjustment disorder 12/28/2012 Anxiety 12/28/2012 Gallstones with obstruction of gallbladder 2003 resolved (post surgery) Gestational diabetes mellitus, class A1 06/11/2022 Ill-defined closed fractures of upper limb 2004 Kidney calculus 07/25/2013 evaluated by urology Knee pain 06/08/2013 resolved Ovarian cyst 07/25/2013 resolved PMH - PAST MEDICAL HISTORY OF 05-02-2001 normal color vision Pneumonia 07/25/2013 bilateral lungs Respiratory syncytial virus (RSV) resolved Seasonal allergies 06/08/2013 thyroid nodule PAST SURGICAL HISTORY Procedure Laterality Date DELIVERY ONLY 08/14/2022 LTCS CHOLEYCYSTOGRAM GALL BLADDER 2004 removal NEPHROLITHOTOMY REMOVAL STAGE 1 06/12/2018 TONSILLECTOMY AND ADENOIDECTOMY TYMPANOSTOMY LOCAL/TOPICAL ANESTHESIA 02/1997 TYMPANOSTOMY LOCAL/TOPICAL ANESTHESIA 08/1999 FAMILY HISTORY Problem Relation Age of Onset Heart Mother Thyroid Mother thyroid cancer other (Hypotension) Mother other (Migraine) Mother other (HELLP) Mother Hypertension Father No Known Problems Brother Thyroid Maternal Grandmother Hypertension Maternal Grandmother Breast Cancer Maternal Grandmother 73 Hypertension Maternal Grandfather Diabetes Maternal Grandfather Heart Maternal Grandfather other (Migraine) Maternal Grandfather Heart Paternal Grandmother Thyroid Paternal Grandmother No Known Problems Paternal Grandfather Thyroid Maternal Aunt other (Migraine) Maternal Uncle other (Migraine) Other Maternal cousin Social History Tobacco Use Smoking status: Never Smokeless tobacco: Never Tobacco comments: pt does not smoke Vaping Use Vaping status: Never Used Substance Use Topics Alcohol use: Not Currently Comment: occasional Drug use: No Current Outpatient Medications Medication Sig sertraline (ZOLOFT) 100 mg tablet Take 1 tablet by mouth once daily. ondansetron orally disintegrating (ZOFRAN ODT) 4 mg disintegrating tablet Take 1 tablet by mouth every 8 hours as needed for nausea/vomiting. azithromycin (ZITHROMAX Z-EVELYN) 250 mg tablet Take 2 tablets PO day 1, THEN 1 TAB DAILY FOR 4 DAYS. doxycycline hyclate (VIBRAMYCIN) 100 mg capsule Take 1 capsule (100 mg) by mouth two times a day. oseltamivir (TAMIFLU) 75 mg capsule Take 1 capsule by mouth two times a day for 5 days. No current facility-administered medications for this visit. ALLERGIES Allergen Reactions Rocephin [Ceftriaxo* Hives, Shortness of Breath REVIEW OF SYSTEMS: GENERAL: feeling well without fatigue, no recent change in weight Derm: no excessive hair growth or acne PHYSICAL EXAMINATION: VIDEO EXAM: (if completed, performed via video enabled technology) GENERAL: alert and appropriate, in no distress, well-hydrated, well nourished, and happy, smiling, interactive SKIN: no rash noted ASSESSMENT: (N94.6) Dysmenorrhea (primary encounter diagnosis) (N92.4) Excessive bleeding in premenopausal period (N97.9) Female infertility PLAN: Options reviewed with patient Will get pelvic us for dysmenorrhea and heavy menses Continue Home ovulation kits Offered semen analysis and HSG Discussed clomid or femara TSH and Progesterone completed and normal Will notify patient of ultrasound results There are no Patient Instructions on file for this visit. I spent a total of 20 minutes on the date of the service which included preparing to see the patient, [id number] patient care, completing clinical documentatio (more content not included)... [facility] 10-14-2024 History of Present illness Narrative VIRTUAL VISIT PROGRESS NOTE This is a virtual visit using [employer] Video Visit. It required patient-provider interaction for the medical decision making as documented below. I have communicated my name and active licensure. The patient's identity and physical location were verified at the time of this visit. Either the patient or their legal bilingual call center representative has been informed of the risks and benefits of -- and alternatives to -- treatment through a remote evaluation and consents to proceed with the evaluation remotely. Erwin Baldwin is a 29 year old female seen for infertility. Cycles are 30-32 days with 4-5 days of moderate flow. Last cycle was heavier and more painful then usual. Her mother does have h/o endometriosis and this does cause some concern. She denies h/o Pelvic infection or current concerns. Pt reports no changes in health history for her or . Pt reports it took about 7 months for first . They did get in november but had miscarriage very early. Pt denies smoking or any changes in medications. Pt reports been trying for 14 months- using home home ovulation prediction kits which indicates ovulation around day 16-18. Pt offers no other concerns. HISTORY REVIEWED (electronic chart updated): PAST MEDICAL HISTORY Diagnosis Date Adjustment disorder 12/28/2012 Anxiety 12/28/2012 Gallstones with obstruction of gallbladder 2003 resolved (post surgery) Gestational diabetes mellitus, class A1 06/11/2022 Ill-defined closed fractures of upper limb 2004 Kidney calculus 07/25/2013 evaluated by urology Knee pain 06/08/2013 resolved Ovarian cyst 07/25/2013 resolved PMH - PAST MEDICAL HISTORY OF 05-02-2001 normal color vision Pneumonia 07/25/2013 bilateral lungs Respiratory syncytial virus (RSV) resolved Seasonal allergies 06/08/2013 thyroid nodule PAST SURGICAL HISTORY Procedure Laterality Date DELIVERY ONLY 08/14/2022 LTCS CHOLEYCYSTOGRAM GALL BLADDER 2004 removal NEPHROLITHOTOMY REMOVAL STAGE 1 06/12/2018 TONSILLECTOMY & ADENOIDECTOMY <AGE 13 04/2001 TYMPANOSTOMY LOCAL/TOPICAL ANESTHESIA 02/1997 TYMPANOSTOMY LOCAL/TOPICAL ANESTHESIA 08/1999 FAMILY HISTORY Problem Relation Age of Onset Heart Mother Thyroid Mother thyroid cancer other (Hypotension) Mother other (Migraine) Mother other (HELLP) Mother Hypertension Father No Known Problems Brother Thyroid Maternal Grandmother Hypertension Maternal Grandmother Breast Cancer Maternal Grandmother 73 Hypertension Maternal Grandfather Diabetes Maternal Grandfather Heart Maternal Grandfather other (Migraine) Maternal Grandfather Heart Paternal Grandmother Thyroid Paternal Grandmother No Known Problems Paternal Grandfather Thyroid Maternal Aunt other (Migraine) Maternal Uncle other (Migraine) Other Maternal cousin Social History Tobacco Use Smoking status: Never Smokeless tobacco: Never Tobacco comments: pt does not smoke Vaping Use Vaping status: Never Used Substance Use Topics Alcohol use: Not Currently Comment: occasional Drug use: No Current Outpatient Medications Medication Sig sertraline (ZOLOFT) 100 mg tablet Take 1 tablet by mouth once daily. ondansetron orally disintegrating (ZOFRAN ODT) 4 mg disintegrating tablet Take 1 tablet by mouth every 8 hours as needed for nausea/vomiting. azithromycin (ZITHROMAX Z-EVELYN) 250 mg tablet Take 2 tablets PO day 1, THEN 1 TAB DAILY FOR 4 DAYS. doxycycline hyclate (VIBRAMYCIN) 100 mg capsule Take 1 capsule (100 mg) by mouth two times a day. oseltamivir (TAMIFLU) 75 mg capsule Take 1 capsule by mouth two times a day for 5 days. No current facility-administered medications for this visit. ALLERGIES Allergen Reactions Rocephin [Ceftriaxo* Hives, Shortness of Breath REVIEW OF SYSTEMS: GENERAL: feeling well without fatigue, no recent change in weight Derm: no excessive hair growth or acne PHYSICAL EXAMINATION: VIDEO EXAM: (if completed, performed via video enabled technology) GENERAL: alert and appropriate, in no distress, well-hydrated, well nourished, and happy, smiling, interactive SKIN: no rash noted ASSESSMENT: (N94.6) Dysmenorrhea (primary encounter diagnosis) (N92.4) Excessive bleeding in premenopausal period (N97.9) Female infertility PLAN: Options reviewed with patient Will get pelvic us for dysmenorrhea and heavy menses Continue Home ovulation kits Offered semen analysis and HSG Discussed clomid or femara TSH and Progesterone completed and normal Will notify patient of ultrasound results There are no Patient Instructions on file for this visit. I spent a total of 20 minutes on the date of the service which included preparing to see the patient, [id number] patient care, completing clinical documentation, obtaining and/or reviewing separately obtained history, performing a medically appropriate examination, counseling and educating the patient/family/caregiver, and ordering medications, tests, or procedures Ivy Jones MD documented in this encounter [facility] 10-13-2024 Telephone encounter Note Pt. informed [facility] 10-13-2024 Miscellaneous Notes Pt. informed Please inform patient that her viral studies show that she has Influenza A. Ok to take Tamiflu if interested. Otherwise supportive care with increased fluids and rest Kaden Meyer DO documented in this encounter [facility] 10-13-2024 Telephone encounter Note Please inform patient that her viral studies show that she has Influenza A. Ok to take Tamiflu if interested. Otherwise supportive care with increased fluids and rest Kaden Meyer DO [facility] 10-12-2024 Note HNO ID: [id number] Author: KADEN MEYER DO Service: ? Author Type: Physician Type: Progress Notes Filed: 10/12/2024 08:13 Note Text: CC: Erwin Baldwin is a 29 year old female who presents to the office for URI symptoms HPI: URI symptoms for the last 2 days, nasal congestion, fever up to 103F and headache which she feels triggered a migraine and associated nausea symptoms. Now with dry ticklish cough. +fatigue,muscle aches, sweats and chills symptoms as well. No vomiting, no diarrhea. No ear pain, + PND and mild sore throat. +sick contacts PAST MEDICAL HISTORY Diagnosis Date Adjustment disorder 12/28/2012 Anxiety 12/28/2012 Gallstones with obstruction of gallbladder 2003 resolved (post surgery) Gestational diabetes mellitus, class A1 06/11/2022 Ill-defined closed fractures of upper limb 2004 Kidney calculus 07/25/2013 evaluated by urology Knee pain 06/08/2013 resolved Ovarian cyst 07/25/2013 resolved PMH - PAST MEDICAL HISTORY OF 05-02-2001 normal color vision Pneumonia 07/25/2013 bilateral lungs Respiratory syncytial virus (RSV) resolved Seasonal allergies 06/08/2013 thyroid nodule PAST SURGICAL HISTORY Procedure Laterality Date DELIVERY ONLY 08/14/2022 LTCS CHOLEYCYSTOGRAM GALL BLADDER 2004 removal NEPHROLITHOTOMY REMOVAL STAGE 1 06/12/2018 TONSILLECTOMY AND ADENOIDECTOMY TYMPANOSTOMY LOCAL/TOPICAL ANESTHESIA 02/1997 TYMPANOSTOMY LOCAL/TOPICAL ANESTHESIA 08/1999 Current Outpatient Medications Medication Sig sertraline (ZOLOFT) 100 mg tablet Take 1 tablet by mouth once daily. No current facility-administered medications for this visit. ALLERGIES Allergen Reactions Rocephin [Ceftriaxo* Hives, Shortness of Breath Social History Tobacco Use Smoking status: Never Smokeless tobacco: Never Tobacco comments: pt does not smoke Vaping Use Vaping status: Never Used Substance Use Topics Alcohol use: Not Currently Comment: occasional Drug use: No ROS: See HPI PE: BP 120/80 Pulse 84 Temp (Src) 97.5 (Temporal) Resp 20 Wt 188 lb (85.3kg) LMP 09/27/2024 Gen: fatigued appearing, intermittent cough, slightly pale, visible chills in office. HEENT: PERRLA, EOMs intact b/l, nares with congestion and clear drainage, pharynx without erythema, exudate, lesions, + clear drainage. Uvula midline. EAC wnl, TM with serous effusion Neck: No LAD, no thyromegaly, no meningismus. CV: RRR, no murmur Lungs: CTA b/l, no wheezing Skin: No rashes, lesions, or wounds on exposed skin. No edema, normal pulses ASSESSMENT/PLAN: 1. URI, acute - ICD9: 465.9, ICD10: J06.9 (primary diagnosis) - Discussed viral etiology and rationale for treatment. - Symptomatic treatment with prn analgesia - Supportive care with fluids and rest - COVID AND INFLUENZA A/B AND RSV PCR, ROUTINE - AZITHROMYCIN 250 MG TABLET - DOXYCYCLINE HYCLATE 100 MG CAPSULE - OSELTAMIVIR 75 MG CAPSULE 2. Fever, unspecified fever cause - ICD9: 780.60, ICD10: R50.9 Check viral labs May need tamiflu- suspect flu A or RSV - COVID AND INFLUENZA A/B AND RSV PCR, ROUTINE - OSELTAMIVIR 75 MG CAPSULE 3. Acute cough - ICD9: 786.2, ICD10: R05.1 Check viral labs May need tamiflu- suspect flu A or RSV - COVID AND INFLUENZA A/B AND RSV PCR, ROUTINE - AZITHROMYCIN 250 MG TABLET - DOXYCYCLINE HYCLATE 100 MG CAPSULE - OSELTAMIVIR 75 MG CAPSULE 4. Nausea - ICD9: 787.02, ICD10: R11.0 Check viral labs May need tamiflu- suspect flu A or RSV - COVID AND INFLUENZA A/B AND RSV PCR, ROUTINE - ONDANSETRON 4 MG DISINTEGRATING TABLET Kaden Meyer DO Return if no improvement. Follow up with Kaden Meyer DO. To ER if develops chest pain, shortness of breath. Discussed risks, benefits, alternatives, and potential side effects of medications. Patient/Guardian expressed understanding and agreed with the plan. See patient instructions. Kaden Meyer DO [address] [place] [address] [facility] 10-12-2024 History of Present illness Narrative CC: Erwin Baldwin is a 29 year old female who presents to the office for URI symptoms HPI: URI symptoms for the last 2 days, nasal congestion, fever up to 103F and headache which she feels triggered a migraine and associated nausea symptoms. Now with dry ticklish cough. +fatigue,muscle aches, sweats and chills symptoms as well. No vomiting, no diarrhea. No ear pain, + PND and mild sore throat. +sick contacts PAST MEDICAL HISTORY Diagnosis Date Adjustment disorder 12/28/2012 Anxiety 12/28/2012 Gallstones with obstruction of gallbladder 2003 resolved (post surgery) Gestational diabetes mellitus, class A1 06/11/2022 Ill-defined closed fractures of upper limb 2005 Kidney calculus 07/25/2013 evaluated by urology Knee pain 06/08/2013 resolved Ovarian cyst 07/25/2013 resolved PMH - PAST MEDICAL HISTORY OF 05-02-2001 normal color vision Pneumonia 07/25/2013 bilateral lungs Respiratory syncytial virus (RSV) resolved Seasonal allergies 06/08/2013 thyroid nodule PAST SURGICAL HISTORY Procedure Laterality Date DELIVERY ONLY 08/14/2022 LTCS CHOLEYCYSTOGRAM GALL BLADDER 2004 removal NEPHROLITHOTOMY REMOVAL STAGE 1 06/12/2018 TONSILLECTOMY & ADENOIDECTOMY <AGE 13 04/2001 TYMPANOSTOMY LOCAL/TOPICAL ANESTHESIA 02/1997 TYMPANOSTOMY LOCAL/TOPICAL ANESTHESIA 08/1999 Current Outpatient Medications Medication Sig sertraline (ZOLOFT) 100 mg tablet Take 1 tablet by mouth once daily. No current facility-administered medications for this visit. ALLERGIES Allergen Reactions Rocephin [Ceftriaxo* Hives, Shortness of Breath Social History Tobacco Use Smoking status: Never Smokeless tobacco: Never Tobacco comments: pt does not smoke Vaping Use Vaping status: Never Used Substance Use Topics Alcohol use: Not Currently Comment: occasional Drug use: No ROS: See HPI PE: BP 120/80 Pulse 84 Temp (Src) 97.5 (Temporal) Resp 20 Wt 188 lb (85.3kg) LMP 09/27/2024 Gen: fatigued appearing, intermittent cough, slightly pale, visible chills in office. HEENT: PERRLA, EOMs intact b/l, nares with congestion and clear drainage, pharynx without erythema, exudate, lesions, + clear drainage. Uvula midline. EAC wnl, TM with serous effusion Neck: No LAD, no thyromegaly, no meningismus. CV: RRR, no murmur Lungs: CTA b/l, no wheezing Skin: No rashes, lesions, or wounds on exposed skin. No edema, normal pulses ASSESSMENT/PLAN: 1. URI, acute - ICD9: 465.9, ICD10: J06.9 (primary diagnosis) - Discussed viral etiology and rationale for treatment. - Symptomatic treatment with prn analgesia - Supportive care with fluids and rest - COVID & INFLUENZA A/B & RSV PCR, ROUTINE - AZITHROMYCIN 250 MG TABLET - DOXYCYCLINE HYCLATE 100 MG CAPSULE - OSELTAMIVIR 75 MG CAPSULE 2. Fever, unspecified fever cause - ICD9: 780.60, ICD10: R50.9 Check viral labs May need tamiflu- suspect flu A or RSV - COVID & INFLUENZA A/B & RSV PCR, ROUTINE - OSELTAMIVIR 75 MG CAPSULE 3. Acute cough - ICD9: 786.2, ICD10: R05.1 Check viral labs May need tamiflu- suspect flu A or RSV - COVID & INFLUENZA A/B & RSV PCR, ROUTINE - AZITHROMYCIN 250 MG TABLET - DOXYCYCLINE HYCLATE 100 MG CAPSULE - OSELTAMIVIR 75 MG CAPSULE 4. Nausea - ICD9: 787.02, ICD10: R11.0 Check viral labs May need tamiflu- suspect flu A or RSV - COVID & INFLUENZA A/B & RSV PCR, ROUTINE - ONDANSETRON 4 MG DISINTEGRATING TABLET Kaden Meyer DO Return if no improvement. Follow up with Kaden L Meyer, DO. To ER if develops chest pain, shortness of breath. Discussed risks, benefits, alternatives, and potential side effects of medications. Patient/Guardian expressed understanding and agreed with the plan. See patient instructions. Kaden Meyer DO [address] [place] [address] documented in this encounter [facility] 09-13-2024 Telephone encounter Note ordered [facility] 09-13-2024 Miscellaneous Notes ordered Spoke with patient. She had her labs done over the weekend. Cycle day 21 will be this Friday. Can you please file a new order. Pending Hellen Snyder RN Will order labs Day 21 progesterone and TSH Make sure she does it on day 21 of cycle. Can't order anything else until she is assessed. Patient has appointment on 10/14/2024 to f/u d/t trying to conceive for over 1 year. Patient asking if any labs are typically ordered for the appointment and if so could they be ordered now and follow up on at appointment. Patient could not get an appointment this year to f/u. Patient has insurance deductible met for the year and would like to get any labs drawn this year if possible. documented in this encounter [facility] 09-13-2024 Telephone encounter Note Spoke with patient. She had her labs done over the weekend. Cycle day 21 will be this Friday. Can you please file a new order. Pending Hellen Snyder RN [facility] 09-10-2024 Telephone encounter Note Will order labs Day 21 progesterone and TSH Make sure she does it on day 21 of cycle. Can't order anything else until she is assessed. [facility] 09-10-2024 Telephone encounter Note Patient has appointment on 10/14/2024 to f/u d/t trying to conceive for over 1 year. Patient asking if any labs are typically ordered for the appointment and if so could they be ordered now and follow up on at appointment. Patient could not get an appointment this year to f/u. Patient has insurance deductible met for the year and would like to get any labs drawn this year if possible. [facility] 08-06-2024 Note HNO ID: [id number] Author: MICAH MCCARTY APRN.[facility] Service: ? Author Type: Nurse Practitioner Type: Progress Notes Filed: 08/06/2024 19:41 Note Text: CC: Patient presents with: Sore Throat: Cough, congestion, R eye redness and soreness x1 week HPI: Erwin Baldwin is a 29 year old female who presents to the office with complaint of head congestion, cough, nonproductive, and sore throat for a week. Symptoms are worsening Associated symptoms includes body aches. Denies nausea, vomiting , and diarrhea. Treatments tried include nothing so far. with no relief of symptoms. Sick contacts: unknown. History of asthma, frequent episodes of bronchitis, chronic bronchitis, bronchiectasis or COPD: No Smoker: No Seasonal/environmental allergies: No The ROS is otherwise negative. The patient's pmh, medications, allergies, and past visits are reviewed. PHYSICAL EXAM: BP 120/84 Pulse 74 Temp 36.8 ?C (98.2 ?F) Resp 18 Wt 85.4 kg (188 lb 4.4 oz) LMP 10/29/2023 (Exact Date) SpO2 96% BMI 33.78 kg/m? General appearance: alert, cooperative, pleasant, in no acute distress Head: Normocephalic Eyes: EOM's intact, conjunctiva pink and moist, no icterus, sclera white, non-injected on left right conjunctiva injected. Ears: Right ear: External ear/canal- Normal, TM - erythematous. Left ear: External ear/canal- Normal, TM - clear with good landmarks Oropharynx:moist without lesions, No erythema, exudates or tonsillar hypertrophy. Heart: Negative. RRR without obvious murmur, gallop, or rubs. No ectopy. Lungs: clear to auscultation, without rales or wheeze, good air exchange PAST MEDICAL HISTORY Diagnosis Date Adjustment disorder 12/28/2012 Anxiety 12/28/2012 Gallstones with obstruction of gallbladder 2003 resolved (post surgery) Gestational diabetes mellitus, class A1 06/11/2022 Ill-defined closed fractures of upper limb 2004 Kidney calculus 07/25/2013 evaluated by urology Knee pain 06/08/2013 resolved Ovarian cyst 07/25/2013 resolved PMH - PAST MEDICAL HISTORY OF 05-02-2001 normal color vision Pneumonia 07/25/2013 bilateral lungs Respiratory syncytial virus (RSV) resolved Seasonal allergies 06/08/2013 thyroid nodule PAST SURGICAL HISTORY Procedure Laterality Date DELIVERY ONLY 08/14/2022 LTCS CHOLEYCYSTOGRAM GALL BLADDER 2004 removal NEPHROLITHOTOMY REMOVAL STAGE 1 06/12/2018 TONSILLECTOMY AND ADENOIDECTOMY TYMPANOSTOMY LOCAL/TOPICAL ANESTHESIA 02/1997 TYMPANOSTOMY LOCAL/TOPICAL ANESTHESIA 08/1999 ALLERGIES Rocephin [Ceftriaxone] MEDICATIONS sertraline (ZOLOFT) 100 mg tablet Take 1 tablet by mouth once daily. FAMILY HISTORY Problem Relation Age of Onset Heart Mother Thyroid Mother thyroid cancer other (Hypotension) Mother other (Migraine) Mother other (HELLP) Mother Hypertension Father No Known Problems Brother Thyroid Maternal Grandmother Hypertension Maternal Grandmother Breast Cancer Maternal Grandmother 73 Hypertension Maternal Grandfather Diabetes Maternal Grandfather Heart Maternal Grandfather other (Migraine) Maternal Grandfather Heart Paternal Grandmother Thyroid Paternal Grandmother No Known Problems Paternal Grandfather Thyroid Maternal Aunt other (Migraine) Maternal Uncle other (Migraine) Other Maternal cousin Social History Tobacco Use Smoking status: Never Smokeless tobacco: Never Tobacco comments: pt does not smoke Vaping Use Vaping status: Never Used Substance Use Topics Alcohol use: Not Currently Comment: occasional Drug use: No ASSESSMENT/PLAN: 1. Respiratory infection - ICD9: 519.8, ICD10: J98.8 (primary diagnosis) - AZITHROMYCIN 250 MG TABLET 2. [place] eye disease of right eye - ICD9: 372.03, ICD10: H10.021 - POLYMYXIN B SULFATE 10,000 UNIT-TRIMETHOPRIM 1 MG/ML EYE DROPS Prescription instructions reviewed with patient as applicable. Potential red flag symptoms discussed with the patient. Reviewed appropriate action plan to take if red flag symptoms occur. Patient agreeable to treatment plan. Micah Mccarty APRN.[facility] 08-06-2024 History of Present illness Narrative CC: Patient presents with: Sore Throat: Cough, congestion, R eye redness and soreness x1 week HPI: Erwin Baldwin is a 29 year old female who presents to the office with complaint of head congestion, cough, nonproductive, and sore throat for a week. Symptoms are worsening Associated symptoms includes body aches. Denies nausea, vomiting , and diarrhea. Treatments tried include nothing so far. with no relief of symptoms. Sick contacts: unknown. History of asthma, frequent episodes of bronchitis, chronic bronchitis, bronchiectasis or COPD: No Smoker: No Seasonal/environmental allergies: No The ROS is otherwise negative. The patient's pmh, medications, allergies, and past visits are reviewed. PHYSICAL EXAM: BP 120/84 Pulse 74 Temp 36.8 C (98.2 F) Resp 18 Wt 85.4 kg (188 lb 4.4 oz) LMP 10/29/2023 (Exact Date) SpO2 96% BMI 33.78 kg/m General appearance: alert, cooperative, pleasant, in no acute distress Head: Normocephalic Eyes: EOM's intact, conjunctiva pink and moist, no icterus, sclera white, non-injected on left right conjunctiva injected. Ears: Right ear: External ear/canal- Normal, TM - erythematous. Left ear: External ear/canal- Normal, TM - clear with good landmarks Oropharynx:moist without lesions, No erythema, exudates or tonsillar hypertrophy. Heart: Negative. RRR without obvious murmur, gallop, or rubs. No ectopy. Lungs: clear to auscultation, without rales or wheeze, good air exchange PAST MEDICAL HISTORY Diagnosis Date Adjustment disorder 12/28/2012 Anxiety 12/28/2012 Gallstones with obstruction of gallbladder 2003 resolved (post surgery) Gestational diabetes mellitus, class A1 06/11/2022 Ill-defined closed fractures of upper limb 2004 Kidney calculus 07/25/2013 evaluated by urology Knee pain 06/08/2013 resolved Ovarian cyst 07/25/2013 resolved PMH - PAST MEDICAL HISTORY OF 05-02-2001 normal color vision Pneumonia 07/25/2013 bilateral lungs Respiratory syncytial virus (RSV) resolved Seasonal allergies 06/08/2013 thyroid nodule PAST SURGICAL HISTORY Procedure Laterality Date DELIVERY ONLY 08/14/2022 LTCS CHOLEYCYSTOGRAM GALL BLADDER 2004 removal NEPHROLITHOTOMY REMOVAL STAGE 1 06/12/2018 TONSILLECTOMY & ADENOIDECTOMY <AGE 13 04/2001 TYMPANOSTOMY LOCAL/TOPICAL ANESTHESIA 02/1997 TYMPANOSTOMY LOCAL/TOPICAL ANESTHESIA 08/1999 ALLERGIES Rocephin [Ceftriaxone] MEDICATIONS sertraline (ZOLOFT) 100 mg tablet Take 1 tablet by mouth once daily. FAMILY HISTORY Problem Relation Age of Onset Heart Mother Thyroid Mother thyroid cancer other (Hypotension) Mother other (Migraine) Mother other (HELLP) Mother Hypertension Father No Known Problems Brother Thyroid Maternal Grandmother Hypertension Maternal Grandmother Breast Cancer Maternal Grandmother 73 Hypertension Maternal Grandfather Diabetes Maternal Grandfather Heart Maternal Grandfather other (Migraine) Maternal Grandfather Heart Paternal Grandmother Thyroid Paternal Grandmother No Known Problems Paternal Grandfather Thyroid Maternal Aunt other (Migraine) Maternal Uncle other (Migraine) Other Maternal cousin Social History Tobacco Use Smoking status: Never Smokeless tobacco: Never Tobacco comments: pt does not smoke Vaping Use Vaping status: Never Used Substance Use Topics Alcohol use: Not Currently Comment: occasional Drug use: No ASSESSMENT/PLAN: 1. Respiratory infection - ICD9: 519.8, ICD10: J98.8 (primary diagnosis) - AZITHROMYCIN 250 MG TABLET 2. [place] eye disease of right eye - ICD9: 372.03, ICD10: H10.021 - POLYMYXIN B SULFATE 10,000 UNIT-TRIMETHOPRIM 1 MG/ML EYE DROPS Prescription instructions reviewed with patient as applicable. Potential red flag symptoms discussed with the patient. Reviewed appropriate action plan to take if red flag symptoms occur. Patient agreeable to treatment plan. Micah Mccarty APRN.[employer] documented in this encounter [facility] 07-08-2024 Telephone encounter Note Prescription Refill Information Called pt she states she has gotten a refill since December from her ob.So she is just about out now. The patient has been identified by name and date of : Yes Caregiver verified no other encounters exist for this prescription request: Yes Caregiver confirmed with patient/requestor that no other refills are due, in the near future, with this provider at this time: Yes The last office visit in the department: 11/26/23 Does the patient have a future office visit with this provider/department: No Requested Prescriptions Pending Prescriptions Disp Refills sertraline (ZOLOFT) 100 mg tablet 90 tablet 1 Sig: Take 1 tablet by mouth once daily. Torrie Balderas LPN July 08, 2024 2:04 PM [facility] 07-08-2024 Miscellaneous Notes Prescription Refill Information Called pt she states she has gotten a refill since December from her ob.So she is just about out now. The patient has been identified by name and date of : Yes Caregiver verified no other encounters exist for this prescription request: Yes Caregiver confirmed with patient/requestor that no other refills are due, in the near future, with this provider at this time: Yes The last office visit in the department: 11/26/23 Does the patient have a future office visit with this provider/department: No Requested Prescriptions Pending Prescriptions Disp Refills sertraline (ZOLOFT) 100 mg tablet 90 tablet 1 Sig: Take 1 tablet by mouth once daily. Torrie Balderas LPN July 08, 2024 2:04 PM documented in this encounter [facility] 03-23-2024 Telephone encounter Note Pt called and is notified of providers message. Pt voices understanding. Yenny Carlisle RN [facility] 03-23-2024 Miscellaneous Notes Pt called and is notified of providers message. Pt voices understanding. Yenny Carlisle RN Lab orders placed. Daria Davies APRN.[facility] Please see pt message-- Hello! I have been bruising really easily lately. I was wondering if we could do some bloodwork for my iron? I am curios if it is low? Last visit - 11/26/2023 well visit. Labs last completed 6 months ago. Lucille Rausch MA documented in this encounter [facility] 03-23-2024 Telephone encounter Note Lab orders placed. Daria Davies APRN.[employer] [facility] 03-23-2024 Telephone encounter Note Please see pt message-- Hello! I have been bruising really easily lately. I was wondering if we could do some bloodwork for my iron? I am curios if it is low? Last visit - 11/26/2023 well visit. Labs last completed 6 months ago. Lucille Rausch MA [facility] 03-23-2024 Telephone encounter Note Turned into TE Lucille Rausch MA [facility] 03-23-2024 Miscellaneous Notes Turned into TE Lucille Rausch MA documented in this encounter [facility] 02-19-2024 Telephone encounter Note TC to patient who verbalized understanding of below. Patient states she has a chiropractor and will schedule an appointment. No further questions at this time. HEIDI Brooks [facility] 02-19-2024 Miscellaneous Notes TC to patient who verbalized understanding of below. Patient states she has a chiropractor and will schedule an appointment. No further questions at this time. HEIDI Brooks Please have her start with chiropractic or PHYSICAL THERAPY/OT. If not improving, then needs inflammatory labs drawn Kaden Meyer DO Please see pt message Lucille Rausch MA Hello! I wanted to let you know I think my hand achiness/pain is getting worse. My wrists are starting to get really sore too. I notice it a lot when I m typing or doing the dishes. I wasn t sure what the next steps would be? Should I try out a chiropractor? documented in this encounter [facility] 02-18-2024 Telephone encounter Note Please have her start with chiropractic or PHYSICAL THERAPY/OT. If not improving, then needs inflammatory labs drawn Kaden Meyer DO [facility] 02-17-2024 Telephone encounter Note Please see pt message Lucille Rausch MA Dayne! I wanted to let you know I think my hand achiness/pain is getting worse. My wrists are starting to get really sore too. I notice it a lot when I m typing or doing the dishes. I wasn t sure what the next steps would be? Should I try out a chiropractor? [facility] 02-17-2024 Telephone encounter Note Turned into TE Lucille Rausch MA [facility] 02-17-2024 Miscellaneous Notes Turned into TE Lucille Rausch MA documented in this encounter [facility] 12-04-2023 Miscellaneous Notes Patient notified. Gracia Anne RN Results consistent with complete . Nothing further to do at this time. If wanting to try again, wait one cycle and can attempt again. Continue PNV. I am sorry for her loss. Patient called asking DM to review her hCG results. States she started spotting yesterday, but only when she wiped. Bleeding more today. States she knows that she is miscarrying and asking DM to review. hCG Quantitative, Blood Date Value 12/03/2023 4.8 mIU/mL 12/01/2023 13.7 mIU/mL documented in this encounter [facility] 12-01-2023 Miscellaneous Notes Patient notified. Gracia Anne RN ordered LMP 2/ Patient took a faint positive UPT after her missed period on Friday. States the test is a faint positive and still continues to be. Asking for hCG quant. Order pending. Hellen Snyder RN documented in this encounter [facility] 11-26-2023 Instructions Kaden Meyer DO - 11/26/2023 8:07 AM EST Turmeric - curcumin 500-1000 mg 1-2 times a day with food- this can help inflammation documented in this encounter [facility] 11-26-2023 History of Present illness Narrative CC: Erwin Baldwin is a 28 year old female who presents to the office for physical HPI: Anxiety, stable, taking zoloft 100 mg a day, no concerns. She is recently done with her 1st child, her daughter, in Jul 2023. She is hoping to soon become . She is having normal regulated menstrual cycles. She can tell when she is ovulating as well. Mild soreness and stiffness and aching of her hand joints, worse with use, no hx of inflammatory arthritis, present since post and while and afterwards. No tingling or numbness or swelling. Hx of thyroid nodule, last thyroid labs in Jul 2023 and were normal She is going to be working on weight loss and exercise. PAST MEDICAL HISTORY Diagnosis Date Adjustment disorder 12/28/2012 Anxiety 12/28/2012 Gallstones with obstruction of gallbladder 2003 resolved (post surgery) Gestational diabetes mellitus, class A1 06/11/2022 Ill-defined closed fractures of upper limb 2004 Kidney calculus 07/25/2013 evaluated by urology Knee pain 06/08/2013 resolved Ovarian cyst 07/25/2013 resolved PMH - PAST MEDICAL HISTORY OF 05-02-2001 normal color vision Pneumonia 07/25/2013 bilateral lungs Respiratory syncytial virus (RSV) resolved Seasonal allergies 06/08/2013 thyroid nodule PAST SURGICAL HISTORY Procedure Laterality Date DELIVERY ONLY 08/14/2022 LTCS CHOLEYCYSTOGRAM GALL BLADDER 2004 removal NEPHROLITHOTOMY REMOVAL STAGE 1 06/12/2018 TONSILLECTOMY & ADENOIDECTOMY <AGE 12 04/2001 TYMPANOSTOMY LOCAL/TOPICAL ANESTHESIA 02/1997 TYMPANOSTOMY LOCAL/TOPICAL ANESTHESIA 08/1999 Social History: Social History Tobacco Use Smoking status: Never Smokeless tobacco: Never Tobacco comments: pt does not smoke Vaping Use Vaping Use: Never used Substance Use Topics Alcohol use: Not Currently Comment: occasional Drug use: No FAMILY HISTORY Problem Relation Age of Onset Heart Mother Thyroid Mother thyroid cancer other (Hypotension) Mother other (Migraine) Mother other (HELLP) Mother Hypertension Father No Known Problems Brother Thyroid Maternal Grandmother Hypertension Maternal Grandmother Hypertension Maternal Grandfather Diabetes Maternal Grandfather Heart Maternal Grandfather other (Migraine) Maternal Grandfather Heart Paternal Grandmother Thyroid Paternal Grandmother No Known Problems Paternal Grandfather Thyroid Maternal Aunt other (Migraine) Maternal Uncle other (Migraine) Other Maternal cousin Current Outpatient prescriptions: sertraline (ZOLOFT) 100 mg tablet Take 1 tablet by mouth once daily. ketoconazole (NIZORAL) 2 % cream Apply to affected area once daily. amoxicillin (AMOXIL) 500 mg capsule Take 1 capsule by mouth three times daily. Allergies: ALLERGIES Allergen Reactions Rocephin [Ceftriaxo* Hives hives, breathing problems ROS: See HPI PE: 11/26/23 0744 BP: 96/60 Pulse: 64 Temp: 36.1 C (97 F) TempSrc: Right Tympanic Weight: 81.2 kg (179 lb) Height: 159 cm (5' 2.6) Gen: A&O, NAD, non-toxic appearing, Pleasant, cooperative HEENT: NT/AC, PERRLA, EOMs intact b/l, nares clear and patent b/l, pharynx without erythema, exudate or lesions. Uvula midline, MMM. EACs without erythema or debris. TMs pearly davies with intact landmarks b/l. Neck: supple, No cervical LAD, no thyromegaly, no carotid bruits CV: RRR, normal S1 and S2, no murmurs, no gallops, no rubs, Pulses 2+ and symmetric in UE and LE b/l Lungs: normal respiratory effort, CTA b/l, no wheezing or rhonchi or rales Abd: soft, NT, ND, +BS, no hepatosplenomegaly MS: FROM all 4 extremities Neuro: CN II-XII intact b/l, strength 5/5 b/l UE and LE, DTRs 2/4 UE and LE, sensation intact. Skin: warm, dry, intact, No rashes or lesions on exposed skin. No edema ASSESSMENT/PLAN: 1. Well adult exam - ICD9: V70.0, ICD10: Z00.00 (primary diagnosis) - Counseled on healthy diet and regular exercise - Calcium intake with supplements or by diet of 1000 mg/day for under 50, 8901-4525 mg/day for 50+ - Discussed need and benefit for weight loss. BMI 32.12 kg/(m^2) 2. Pain in both hands - ICD9: 729.5, ICD10: M79.641, M79.642 Check labs for inflammation if symptoms worsen. She will work on cutting down on sugar and consider tumeric supplement 3. EMILEE (generalized anxiety disorder) - ICD9: 300.02, ICD10: F41.1 Continue zoloft. stable 4. Class 1 obesity with body mass index (BMI) of 32.0 to 32.9 in adult, unspecified obesity type, unspecified whether serious comorbidity present - ICD9: 278.00, V85.32, ICD10: E66.9, Z68.32 Stable - PSMF and - Eat well program Kaden Meyer DO To ER if develops chest pain, shortness of breath, or severe worsening of symptoms. Discussed risks, benefits, alternatives, and potential side effects of medications. Patient expressed understanding and agreed with the plan. Kaden Meyer DO [address] [place] [address] documented in this encounter [facility] 09-02-2023 History of Present illness Narrative Manager Med Surg offered: Patient declines. Erwin is a 28 year old who presents for an annual gynecologic exam without complaints. Daughter just turned 1. Going to in February. Menses: cycles every 31 days, 4-5 days of flow, Just stopped breast feeding. HPV vaccine: Yes Last Pap: 10/24/2020 normal HPV: N/A History of abnormal pap: No Last mammogram: never Sexually active: Yes Also notes weight gain after stopping . OB History T1 L1 SAB0 IAB0 Ectopic0 Multiple0 Live Births1 Hub Bander History LMP: 08/30/2023 (Exact Date), Having periods Age at Menarche: Age at First : Age at Menopause: Hub Bander History Comments: Sexual Activity: Yes; Male Contraception: No contraception data on record PAST MEDICAL HISTORY Diagnosis Date Adjustment disorder 12/28/2012 Anxiety 12/28/2012 Gallstones with obstruction of gallbladder 2003 resolved (post surgery) Gestational diabetes mellitus, class A1 06/11/2022 Ill-defined closed fractures of upper limb 2005 Kidney calculus 07/25/2013 evaluated by urology Knee pain 06/08/2013 resolved Ovarian cyst 07/25/2013 resolved PMH - PAST MEDICAL HISTORY OF 05-02-2001 normal color vision Pneumonia 07/25/2013 bilateral lungs Respiratory syncytial virus (RSV) resolved Seasonal allergies 06/08/2013 thyroid nodule PAST SURGICAL HISTORY Procedure Laterality Date DELIVERY ONLY 08/14/2022 LTCS CHOLEYCYSTOGRAM GALL BLADDER 2004 removal NEPHROLITHOTOMY REMOVAL STAGE 1 06/12/2018 TONSILLECTOMY & ADENOIDECTOMY <AGE 13 04/2001 TYMPANOSTOMY LOCAL/TOPICAL ANESTHESIA 02/1997 TYMPANOSTOMY LOCAL/TOPICAL ANESTHESIA 08/1999 FAMILY HISTORY Problem Relation Age of Onset Heart Mother Thyroid Mother thyroid cancer other (Hypotension) Mother other (Migraine) Mother other (HELLP) Mother Hypertension Father No Known Problems Brother Thyroid Maternal Grandmother Hypertension Maternal Grandmother Hypertension Maternal Grandfather Diabetes Maternal Grandfather Heart Maternal Grandfather other (Migraine) Maternal Grandfather Heart Paternal Grandmother Thyroid Paternal Grandmother No Known Problems Paternal Grandfather Thyroid Maternal Aunt other (Migraine) Maternal Uncle other (Migraine) Other Maternal cousin SOCIAL HISTORY Social History Tobacco Use Smoking status: Never Smokeless tobacco: Never Tobacco comments: pt does not smoke Vaping Use Vaping Use: Never used Substance Use Topics Alcohol use: Not Currently Comment: occasional Drug use: No REVIEW OF SYSTEMS Abdomen: No abdominal pain, nausea, vomiting, diarrhea, or constipation. No bloating, early satiety, indigestion, or increased flatulence. Bladder: No dysuria, gross hematuria, urinary frequency, urinary urgency, or incontinence. Breast: No breast lumps, nipple d/c, overlying skin changes, redness or skin retraction. Allergies and current medication updated:Yes EXAM: BP 102/60 Ht 5' 2 (1.58m) Wt 176 lb (79.8kg) LMP 08/30/2023 BMI 32.18 kg/(m^2). GENERAL: pleasant, female in no apparent distress HEENT: Normocephalic, atraumatic, mucus membranes moist, and no lesions NECK: Supple, full range of motion, no adenopathy, and thyroid normal DERMATOLOGY: Normal, without lesions, non-icteric, and non-hirsute BREAST: soft, non-tender, symmetric, no dominant mass, normal nipple-areolar complex, no lymphadenopathy, and no nipple discharge ABDOMEN: soft, non-tender, and no masses PELVIC: external genitalia normal, normal Bartholin's glands, urethra, Rosepine's glands, no vulvar lesions, no cervical lesions, good vaginal support, physiologic discharge present, normal appearing perineal body and perianal region BIMANUAL: uterus normal size, shape and consistency, no adnexal masses, and non-tender RECTOVAGINAL: deferred. NEURO: alert and oriented x3,exam grossly non-focal EXTREMITIES: normal ASSESSMENT/PLAN: 1) Health maintenance: Pap done with reflex HPV. Mammogram starting age 40. Nutrition, exercise and routine health maintenance exams reviewed. Calcium/Vitamin D supplementation information provided. HPV vaccine: completed series 2) Contraception: none. Contraceptive options reviewed and information provided. 3) STD screening: Declined STD check. 4) Follow up one year or sooner as needed 5) advised on PNV Ivy Jones MD documented in this encounter [facility] 08-02-2023 Miscellaneous Notes See telephone note documented in this encounter [facility] 06-10-2023 Miscellaneous Notes Pt. feeling better today. More than likely this is a viral syndrome. Would recommend being seen/evaluated if symptoms last through this Th with fever Kaden Meyer DO Pt reports she was seen in yesterday and tested neg for Covid, Influenza A & B. Pt reports her sx started last 06/05. Pt reports sx are [place], bodyaches, and low grade fever. Pt reports low grade fever didn't come on until Sat night. Pt reports she didn't have a fever for most of the day but now she has it again. Pt reports fever is not high just low grade. Pt is asking when to know if something more than viral is happening. Tamia Riley LPN documented in this encounter [facility] 06-08-2023 History of Present illness Narrative Subjective Fever Associated symptoms include headaches. Pertinent negatives include no diarrhea, no vomiting, no congestion, no sore throat and no cough. Erwin A Riebe is a 28 year old female who presents with headache and body aches and chills for the past 2 days. She feels weak and tired today. She took tylenol at home for fever of 101 degrees F. She is currently breast feeding a 10 month old. She denies any breast tenderness. Review of Systems Constitutional: Positive for chills, fever and malaise/fatigue. HENT: Negative for congestion, ear pain and sore throat. Respiratory: Negative for cough. Cardiovascular: Negative. Gastrointestinal: Negative for abdominal pain, diarrhea, nausea and vomiting. Musculoskeletal: Positive for myalgias. Neurological: Positive for headaches. BP 104/86 Pulse 120 Temp 37.3 C (99.2 F) Resp 20 Wt 75.4 kg (166 lb 3.2 oz) LMP 10/19/2022 (Exact Date) SpO2 99% BMI 29.45 kg/m PAST MEDICAL HISTORY Diagnosis Date Adjustment disorder 12/28/2012 Anxiety 12/28/2012 Gallstones with obstruction of gallbladder 2003 resolved (post surgery) Gestational diabetes mellitus, class A1 06/11/2022 Ill-defined closed fractures of upper limb 2004 Kidney calculus 07/25/2013 evaluated by urology Knee pain 06/08/2013 resolved Ovarian cyst 07/25/2013 resolved PMH - PAST MEDICAL HISTORY OF 05-02-2001 normal color vision Pneumonia 07/25/2013 bilateral lungs Respiratory syncytial virus (RSV) resolved Seasonal allergies 06/08/2013 thyroid nodule PAST SURGICAL HISTORY Procedure Laterality Date DELIVERY ONLY 08/14/2022 LTCS CHOLEYCYSTOGRAM GALL BLADDER 2004 removal NEPHROLITHOTOMY REMOVAL STAGE 1 06/12/2018 TONSILLECTOMY & ADENOIDECTOMY <AGE 13 04/2001 TYMPANOSTOMY LOCAL/TOPICAL ANESTHESIA 02/1997 TYMPANOSTOMY LOCAL/TOPICAL ANESTHESIA 08/1999 ALLERGIES Rocephin [Ceftriaxone] MEDICATIONS sertraline (ZOLOFT) 100 mg tablet Take 1 tablet by mouth once daily. ketoconazole (NIZORAL) 2 % cream Apply to affected area once daily. (Patient not taking: Reported on 06/08/2023) amoxicillin (AMOXIL) 500 mg capsule Take 1 capsule by mouth three times daily. (Patient not taking: Reported on 06/08/2023) FAMILY HISTORY Problem Relation Age of Onset Heart Mother Thyroid Mother thyroid cancer other (Hypotension) Mother other (Migraine) Mother other (HELLP) Mother Hypertension Father No Known Problems Brother Thyroid Maternal Grandmother Hypertension Maternal Grandmother Hypertension Maternal Grandfather Diabetes Maternal Grandfather Heart Maternal Grandfather other (Migraine) Maternal Grandfather Heart Paternal Grandmother Thyroid Paternal Grandmother No Known Problems Paternal Grandfather Thyroid Maternal Aunt other (Migraine) Maternal Uncle other (Migraine) Other Maternal cousin Social History Tobacco Use Smoking status: Never Smokeless tobacco: Never Tobacco comments: pt does not smoke Vaping Use Vaping Use: Never used Substance Use Topics Alcohol use: Not Currently Comment: occasional Drug use: No Objective Physical Exam Vitals and nursing note reviewed. Constitutional: General: She is not in acute distress. Appearance: Normal appearance. HENT: Right Ear: Tympanic membrane, ear canal and external ear normal. Left Ear: Tympanic membrane, ear canal and external ear normal. Mouth/Throat: Mouth: Mucous membranes are moist. Pharynx: Oropharynx is clear. No oropharyngeal exudate or posterior oropharyngeal erythema. Cardiovascular: Rate and Rhythm: Normal rate and regular rhythm. Heart sounds: Normal heart sounds. Pulmonary: Effort: Pulmonary effort is normal. No respiratory distress. Breath sounds: Normal breath sounds. No wheezing or rales. Lymphadenopathy: Cervical: No cervical adenopathy. Skin: General: Skin is warm and dry. Findings: No erythema or rash. Neurological: Mental Status: She is alert. ASSESSMENT/PLAN: 1. Viral illness - ICD9: 079.99, ICD10: B34.9 - Discussed viral etiology and rationale for treatment. - Symptomatic treatment with prn analgesia - Supportive care with fluids and rest - COVID & INFLUENZA A/B NAAT, ROUTINE - Follow-up with your PCP in 3-5 days if symptoms have not improved or sooner if symptoms worsen - Discussed red flags and need for immediate medical evaluation if any occur. - Discussed supportive care treatment with fluids, rest and analgesia. - Discussed expected course of illness Crystal Moreau APRN.CONTRACTS MANAGER documented in this encounter [facility] 06-08-2023 Instructions Crystal Moreau APRN.CONTRACTS MANAGER - 06/08/2023 8:43 AM EDT ASSESSMENT/PLAN: 1. Viral illness - ICD9: 079.99, ICD10: B34.9 - Discussed viral etiology and rationale for treatment. - Symptomatic treatment with prn analgesia - Supportive care with fluids and rest - COVID & INFLUENZA A/B NAAT, ROUTINE - Follow-up with your PCP in 3-5 days if symptoms have not improved or sooner if symptoms worsen - Discussed red flags and need for immediate medical evaluation if any occur. - Discussed supportive care treatment with fluids, rest and analgesia. - Discussed expected course of illness Crystal Moreau APRN.LORRI documented in this encounter [facility] 05-21-2023 Miscellaneous Notes Noted, thank you. Daria Davies APRN.CNP Call placed to Lab Services and they do not have the correct color tube to add the Vitamin D level. Call placed to patient and explained above. Patient is willing to come back in sometime this week to have Vitamin D lab drawn. Lakshmi Lopez RN Please contact lab, I forgot I wanted a vitamin D level drawn on Erwin. Can this be added on to the bloodwork she had this morning? Daria Davies APRN.CNP documented in this encounter [facility] 05-21-2023 History of Present illness Narrative Chief Complaint Patient presents with: jaw pain: Left side x 9 months HPI Erwin Dale Baldwin is a 28 year old female who presents here today for Above Complaints. Today: Left jaw- Ever since having daughter 9 months ago has had her left jaw popping out of place mainly when eating. Can't open mouth all the way. Saw chiropractor a few weeks ago-adjusted a bit-but no improvement. Has to eat on right side of her mouth due to it causing pain to left side of her jaw. Has taken ibuprofen, seems to help intermittently. Is now popping some but seems a little stuck. Opening mouth very much causes pressure/pain. Does feel some pressure in her jaw. Abdomen-redness deep in belly button. Just noticed yesterday but is a bit irritating. Hasn't tried anything for this. Wondering if yeast infection. Is currently . Past medical history, appointments, medications, allergies reviewed. Previous Medical History PAST MEDICAL HISTORY Diagnosis Date Adjustment disorder 12/28/2012 Anxiety 12/28/2012 Gallstones with obstruction of gallbladder 2003 resolved (post surgery) Gestational diabetes mellitus, class A1 06/11/2022 Ill-defined closed fractures of upper limb 2004 Kidney calculus 07/25/2013 evaluated by urology Knee pain 06/08/2013 resolved Ovarian cyst 07/25/2013 resolved PMH - PAST MEDICAL HISTORY OF 05-02-2001 normal color vision Pneumonia 07/25/2013 bilateral lungs Respiratory syncytial virus (RSV) resolved Seasonal allergies 06/08/2013 thyroid nodule Previous Surgical History PAST SURGICAL HISTORY Procedure Laterality Date DELIVERY ONLY 08/14/2022 LTCS CHOLEYCYSTOGRAM GALL BLADDER 2004 removal NEPHROLITHOTOMY REMOVAL STAGE 1 06/12/2018 TONSILLECTOMY & ADENOIDECTOMY <AGE 13 04/2001 TYMPANOSTOMY LOCAL/TOPICAL ANESTHESIA 02/1997 TYMPANOSTOMY LOCAL/TOPICAL ANESTHESIA 08/1999 Family History FAMILY HISTORY Problem Relation Age of Onset Heart Mother Thyroid Mother thyroid cancer other (Hypotension) Mother other (Migraine) Mother other (HELLP) Mother Hypertension Father No Known Problems Brother Thyroid Maternal Grandmother Hypertension Maternal Grandmother Hypertension Maternal Grandfather Diabetes Maternal Grandfather Heart Maternal Grandfather other (Migraine) Maternal Grandfather Heart Paternal Grandmother Thyroid Paternal Grandmother No Known Problems Paternal Grandfather Thyroid Maternal Aunt other (Migraine) Maternal Uncle other (Migraine) Other Maternal cousin Patient Allergies ALLERGIES Allergen Reactions Rocephin [Ceftriaxo* Hives hives, breathing problems Current Medications Current Outpatient Medications on File Prior to Visit Medication Sig sertraline (ZOLOFT) 100 mg tablet Take 1 tablet by mouth once daily. multivitamin (CLASSIC ) 28 mg iron- 800 mcg tab(s) Take 1 tablet by mouth once daily. (Patient not taking: Reported on 05/21/2023) cyanocobalamin (VITAMIN B-12) 1,000 mcg tab Take 1,000 mcg by mouth once daily. Cholecalciferol, Vitamin D3, 125 mcg (5,000 unit) cap Take 1 capsule by mouth once daily. No current facility-administered medications on file prior to visit. Social History Social History Tobacco Use Smoking status: Never Smokeless tobacco: Never Tobacco comments: pt does not smoke Vaping Use Vaping Use: Never used Substance Use Topics Alcohol use: Not Currently Comment: occasional Drug use: No Review of Symptoms REVIEW OF SYSTEMS See HPI, otherwise negative EXAM: BP 118/80 (BP Site: Left Arm, BP Position: Sitting, BP Cuff Size: Regular Adult) Pulse 73 Resp 16 Wt 74.7 kg (164 lb 9.6 oz) LMP 10/19/2022 (Exact Date) SpO2 97% BMI 29.16 kg/m General Appearance: Well appearing, alert, in no acute distress, well-hydrated, well nourished.. Skin: erythema to posterior umbilicus, no drainage, +mild excoriation Head: Normocephalic, no masses, lesions, tenderness or abnormalities. Ears: External ears normal, canals clear. Oropharynx: Lips, mucosa, and tongue normal, teeth and gums normal, oropharynx normal. Neck: Supple, thyroid symmetric, normal size, no bruits. 1+ lymphadenopathy left submandibular. Lungs: Lungs clear to auscultation. No wheezing, rhonchi, rales.. Heart: RRR without murmur, gallop, or rubs. No ectopy. Health Maintenance List COVID-19 VACCINE(3 - Pfizer series) due on 09/09/2021 PAP TESTING due on 10/12/2023 INFLUENZA(1) due on 05/23/2023 DTAP,TDAP,TD(6 - Td or Tdap) due on 05/29/2032 HEPATITIS B Completed HPV VACCINE Completed DEPRESSION ASSESSMENT Completed HEPATITIS C SCREENING Completed HIV SCREENING Completed Data reviewed Previous records, office notes ASSESSMENT/PLAN: 1. Jaw pain - ICD9: 784.92, ICD10: R68.84 (primary diagnosis) If no improvement with current interventions, consider referral to oral surgeon. - NAPROXEN 500 MG TABLET - AMOXICILLIN 500 MG CAPSULE - C-REACTIVE PROTEIN (CRP) - COMP METABOLIC PANEL - CBC + DIFF - VITAMIN D 25 HYDROXY 2. Lymphadenopathy, submandibular - ICD9: 785.6, ICD10: R59.0 If no improvement with current interventions, consider referral to oral surgeon. - NAPROXEN 500 MG TABLET - AMOXICILLIN 500 MG CAPSULE - C-REACTIVE PROTEIN (CRP) - COMP METABOLIC PANEL - CBC + DIFF - VITAMIN D 25 HYDROXY 3. Yeast infection of the skin - ICD9: 112.3, ICD10: B37.2 To posterior umbilicus. - KETOCONAZOLE 2 % TOPICAL CREAM Daria Davies APRN.CONTRACTS MANAGER documented in this encounter [facility] 04-10-2023 History of Present illness Narrative Images from the original note were not included. This note was created using [employer]. Subjective Erwin Baldwin is a 28 year old female. HPI 28-year-old female presents for insect bite. Patient reports that she noticed a red bump on her back about a month ago. She states that it looked like it did have a head on it, but that has now gone away. It now more looks like a bruise. She states it has a hard knot underneath. It is not painful. It is not itchy. No lesions or rash anywhere else. No fevers. No other complaints. PAST MEDICAL HISTORY Diagnosis Date Adjustment disorder 12/28/2012 Anxiety 12/28/2012 Gallstones with obstruction of gallbladder 2003 resolved (post surgery) Gestational diabetes mellitus, class A1 06/11/2022 Ill-defined closed fractures of upper limb 2005 Kidney calculus 07/25/2013 evaluated by urology Knee pain 06/08/2013 resolved Ovarian cyst 07/25/2013 resolved PMH - PAST MEDICAL HISTORY OF 05-02-2001 normal color vision Pneumonia 07/25/2013 bilateral lungs Respiratory syncytial virus (RSV) resolved Seasonal allergies 06/08/2013 thyroid nodule PAST SURGICAL HISTORY Procedure Laterality Date DELIVERY ONLY 08/14/2022 LTCS CHOLEYCYSTOGRAM GALL BLADDER 2004 removal NEPHROLITHOTOMY REMOVAL STAGE 1 06/12/2018 TONSILLECTOMY & ADENOIDECTOMY <AGE 13 04/2001 TYMPANOSTOMY LOCAL/TOPICAL ANESTHESIA 02/1997 TYMPANOSTOMY LOCAL/TOPICAL ANESTHESIA 08/1999 ALLERGIES Rocephin [Ceftriaxone] MEDICATIONS sertraline (ZOLOFT) 100 mg tablet Take 1 tablet by mouth once daily. multivitamin (CLASSIC ) 28 mg iron- 800 mcg tab(s) Take 1 tablet by mouth once daily. doxycycline monohydrate 100 mg tablet Take 1 tablet by mouth twice daily for 5 days. cyanocobalamin (VITAMIN B-12) 1,000 mcg tab Take 1,000 mcg by mouth once daily. Cholecalciferol, Vitamin D3, 125 mcg (5,000 unit) cap Take 1 capsule by mouth once daily. FAMILY HISTORY Problem Relation Age of Onset Heart Mother Thyroid Mother thyroid cancer other (Hypotension) Mother other (Migraine) Mother other (HELLP) Mother Hypertension Father No Known Problems Brother Thyroid Maternal Grandmother Hypertension Maternal Grandmother Hypertension Maternal Grandfather Diabetes Maternal Grandfather Heart Maternal Grandfather other (Migraine) Maternal Grandfather Heart Paternal Grandmother Thyroid Paternal Grandmother No Known Problems Paternal Grandfather Thyroid Maternal Aunt other (Migraine) Maternal Uncle other (Migraine) Other Maternal cousin Social History Tobacco Use Smoking status: Never Smokeless tobacco: Never Tobacco comments: pt does not smoke Vaping Use Vaping Use: Never used Substance Use Topics Alcohol use: Not Currently Comment: occasional Drug use: No Review of Systems Constitutional: Negative for chills and fever. HENT: Negative for congestion, ear pain and sore throat. Respiratory: Negative for cough and shortness of breath. Cardiovascular: Negative for chest pain. Gastrointestinal: Negative for diarrhea and vomiting. Skin: Positive for color change. Objective BP 132/72 Pulse 78 Temp 36.2 C (97.1 F) Resp 16 Wt 74.3 kg (163 lb 12.8 oz) LMP 10/19/2022 (Exact Date) SpO2 97% BMI 29.02 kg/m Physical Exam Vitals and nursing note reviewed. Constitutional: General: She is not in acute distress. Appearance: Normal appearance. She is not toxic-appearing. Cardiovascular: Rate and Rhythm: Normal rate and regular rhythm. Pulmonary: Effort: Pulmonary effort is normal. Breath sounds: Normal breath sounds. Skin: General: Skin is warm and dry. Findings: Lesion present. Comments: Erythematous round lesion just above the bra line on patient's back. Nontender to touch. No fluctuance. No abscess. No lymphatic streaking. No drainage. Neurological: Mental Status: She is alert. Assessment and Plan ASSESSMENT/PLAN: 1. Skin lesion - ICD9: 709.9, ICD10: L98.9 -Possible skin infection. Patient states the lesion has been there for months. It does have some surrounding erythema. We will treat with doxycycline. -Advised if it does not go away, needs close follow-up with PCP. May need biopsy. She understands. Diagnosis and treatment plan were discussed and questions were answered to the patient's satisfaction. Pt acknowledged understanding of concepts and follow up plan. Specific signs and symptoms that would indicate the need for higher level of care were discussed in detail warranting prompt ER evaluation. MUNIRA Elliott documented in this encounter [facility] 04-02-2023 Miscellaneous Notes Patient has been identified by name and date of : Patient phones for refill(s): Requested Prescriptions Pending Prescriptions Disp Refills sertraline (ZOLOFT) 100 mg tablet 90 tablet 0 Sig: Take 1 tablet by mouth once daily. Date of last office visit in primary care: 10/30/22 Last 2 Encounter Wt Readings: Date: Wt: 10/30/2022 68.5 kg (151 lb) 09/25/2022 68 kg (150 lb) Previous labs/tests for medication: Not applicable Please advise. Thank you. Lalit Gillette LPN documented in this encounter [facility] 03-10-2023 Miscellaneous Notes Ordered. Maria T Villagomez PA-C Justine @ [facility] calling to request new lab order for Vitamin C level. She ila lab today but used incorrect tube. States it needs to be re drawn. She says she contacted the patient who is willing to come back in. Pended Katarzyna Bartlett RN documented in this encounter [facility] 02-21-2023 Miscellaneous Notes Spoke with pt gave information provided. Pt voices understanding. Please call patient and have her come into lab for blood work Kaden Meyer DO Mychart Message: Hello! I just wanted to reach out to see your thoughts. I have been feeling really tired lately, hard time focusing at time, and bruising more frequently on my legs. I am not sure if my iron is low. I know it was low after my csection. documented in this encounter [facility] 02-20-2023 Miscellaneous Notes Turned into telephone encounter documented in this encounter [facility] 10-30-2022 History of Present illness Narrative CC: Erwin Baldwin is a 27 year old female who presents to the office for physical HPI: Overall she is feeling well She is 11 weeks post from of her 1st daughter and is her. She had a delivery and no complications. Mood, recently increased her zoloft from 25 mg to 50 mg, feels this is helping her anxiety. Still some symptoms, will be returning to work in 1-2 weeks- working from home 2 days a week and in office 3 days a week. No SI or HI. Has good support. PAST MEDICAL HISTORY Diagnosis Date Adjustment disorder 12/28/2012 Anxiety 12/28/2012 Gallstones with obstruction of gallbladder 2003 resolved (post surgery) Gestational diabetes mellitus, class A1 06/11/2022 Ill-defined closed fractures of upper limb 2004 Kidney calculus 07/25/2013 evaluated by urology Knee pain 06/08/2013 resolved Ovarian cyst 07/25/2013 resolved PMH - PAST MEDICAL HISTORY OF 05-02-2001 normal color vision Pneumonia 07/25/2013 bilateral lungs Respiratory syncytial virus (RSV) resolved Seasonal allergies 06/08/2013 thyroid nodule PAST SURGICAL HISTORY Procedure Laterality Date DELIVERY ONLY 08/14/2022 LTCS CHOLEYCYSTOGRAM GALL BLADDER 2004 removal NEPHROLITHOTOMY REMOVAL STAGE 1 06/12/2018 TONSILLECTOMY & ADENOIDECTOMY <AGE 13 04/2001 TYMPANOSTOMY LOCAL/TOPICAL ANESTHESIA 02/1997 TYMPANOSTOMY LOCAL/TOPICAL ANESTHESIA 08/1999 Social History: Social History Tobacco Use Smoking status: Never Smokeless tobacco: Never Tobacco comments: pt does not smoke Vaping Use Vaping Use: Never used Substance Use Topics Alcohol use: Not Currently Comment: occasional Drug use: No FAMILY HISTORY Problem Relation Age of Onset Heart Mother Thyroid Mother thyroid cancer other (Hypotension) Mother other (Migraine) Mother other (HELLP) Mother Hypertension Father No Known Problems Brother Thyroid Maternal Grandmother Hypertension Maternal Grandmother Hypertension Maternal Grandfather Diabetes Maternal Grandfather Heart Maternal Grandfather other (Migraine) Maternal Grandfather Heart Paternal Grandmother Thyroid Paternal Grandmother No Known Problems Paternal Grandfather Thyroid Maternal Aunt other (Migraine) Maternal Uncle other (Migraine) Other Maternal cousin Current Outpatient prescriptions: sertraline (ZOLOFT) 50 mg tablet Take 1 tablet by mouth once daily. multivitamin (CLASSIC ) 28 mg iron- 800 mcg tab(s) Take 1 tablet by mouth once daily. cyanocobalamin (VITAMIN B-12) 1,000 mcg tab Take 1,000 mcg by mouth once daily. Cholecalciferol, Vitamin D3, 125 mcg (5,000 unit) cap Take 1 capsule by mouth once daily. Allergies: ALLERGIES Allergen Reactions Rocephin [Ceftriaxo* Hives hives, breathing problems ROS: See HPI PE: 10/30/22 1428 BP: 120/80 Pulse: 84 Resp: 16 Temp: 36.1 C (97 F) TempSrc: Left Tympanic Weight: 68.5 kg (151 lb) Height: 160 cm (5' 2.99) Gen: A&O, NAD, non-toxic appearing, Pleasant, cooperative HEENT: NT/AC, PERRLA, EOMs intact b/l, nares clear and patent b/l, pharynx without erythema, exudate or lesions. Uvula midline. MMM, EACs without erythema or debris. TMs pearly davies with intact landmarks b/l. Neck: supple, No cervical LAD, no thyromegaly, no carotid bruits CV: RRR, normal S1 and S2, no murmurs, no gallops, no rubs, Pulses 2+ and symmetric in UE and LE b/l Lungs: normal respiratory effort, CTA b/l, no wheezing or rhonchi or rales Abd: soft, NT, healing low transverse scar without concerns,ND, +BS, no hepatosplenomegaly MS: FROM all 4 extremities Neuro: CN II-XII intact b/l, strength 5/5 b/l UE and LE, DTRs 2/4 UE and LE, sensation intact. Skin: warm, dry, intact, No rashes or lesions on exposed skin. No edema, normal pulses ASSESSMENT/PLAN: 1. Well adult exam - ICD9: V70.0, ICD10: Z00.00 (primary diagnosis) - Counseled on healthy diet and regular exercise - Calcium intake with supplements or by diet of 1000 mg/day for under 50, 5209-2321 mg/day for 50+ - HGB A1C - COMP METABOLIC PANEL - LIPID PANEL BASIC - TSH BLD - T4 FREE/FREE THYROX - CBC + DIFF 2. EMILEE (generalized anxiety disorder) - ICD9: 300.02, ICD10: F41.1 - stable, taking zoloft, can always increase dose to 75-100 mg of zoloft in future if needed. 3. Hypothyroidism, acquired - ICD9: 244.9, ICD10: E03.9 - check TSH and free T4 today Stable - Eat well program - CBC + DIFF Kaden Meyer DO To ER if develops chest pain, shortness of breath, or severe worsening of symptoms. Discussed risks, benefits, alternatives, and potential side effects of medications. Patient expressed understanding and agreed with the plan. Kaden Meyer DO [address] [place] [address] documented in this encounter [facility] 09-25-2022 History of Present illness Narrative VISIT Erwin Baldwin is a 27 year old year old here for visit. Delivery Summary:cs ROS/ Recovery: Feeding: Breast feeding problems: None Menses since delivery: spotting Menstrual pattern prior to : Regular periods [place] since delivery: Not resumed Depression: admits to symptoms of depression. OB Depression and Anxiety Screening- This Encounter (since 09/24/2022) Over the past 2 weeks have you felt down, depressed, or hopeless? Negative Over the past two weeks, have you felt little interest or pleasure in doing things? Negative Feeling nervous, anxious or on edge 0-Not at all Not being able to stop or control worrying 0-Not al all Anxiety Pre-Screening Total (If >/= 3 additional questions will be reviewed) 0 Emotional support: Yes Bowel symptoms: Negative for abdominal discomfort, blood in stools or black stools and change in bowel habits Abdomen: She reports no incisional redness, tenderness, erythema Bladder symptoms: No dysuria, gross hematuria, urinary frequency, urinary urgency, or incontinence Other issues: None Last Pap: 2020 normal HPV: N/A PAST MEDICAL HISTORY Diagnosis Date Adjustment disorder 12/28/2012 Anxiety 12/28/2012 Gallstones with obstruction of gallbladder 2003 resolved (post surgery) Gestational diabetes mellitus, class A1 06/11/2022 Ill-defined closed fractures of upper limb 2005 Kidney calculus 07/25/2013 evaluated by urology Knee pain 06/08/2013 resolved Ovarian cyst 07/25/2013 resolved PMH - PAST MEDICAL HISTORY OF 05-02-2001 normal color vision Pneumonia 07/25/2013 bilateral lungs Respiratory syncytial virus (RSV) resolved Seasonal allergies 06/08/2013 thyroid nodule PAST SURGICAL HISTORY Procedure Laterality Date DELIVERY ONLY 08/14/2022 LTCS CHOLEYCYSTOGRAM GALL BLADDER 2004 removal NEPHROLITHOTOMY REMOVAL STAGE 1 06/12/2018 TONSILLECTOMY & ADENOIDECTOMY <AGE 13 04/2001 TYMPANOSTOMY LOCAL/TOPICAL ANESTHESIA 02/1997 TYMPANOSTOMY LOCAL/TOPICAL ANESTHESIA 08/1999 FAMILY HISTORY Problem Relation Age of Onset Heart Mother Thyroid Mother thyroid cancer other (Hypotension) Mother other (Migraine) Mother other (HELLP) Mother Hypertension Father No Known Problems Brother Thyroid Maternal Grandmother Hypertension Maternal Grandmother Hypertension Maternal Grandfather Diabetes Maternal Grandfather Heart Maternal Grandfather other (Migraine) Maternal Grandfather Heart Paternal Grandmother Thyroid Paternal Grandmother No Known Problems Paternal Grandfather Thyroid Maternal Aunt other (Migraine) Maternal Uncle other (Migraine) Other Maternal cousin Social History Tobacco Use Smoking status: Never Smokeless tobacco: Never Tobacco comments: pt does not smoke Vaping Use Vaping Use: Never used Substance Use Topics Alcohol use: Not Currently Comment: occasional Drug use: No PHYSICAL EXAMINATION: LMP 11/07/2021 GENERAL: pleasant, female in no apparent distress HEENT: Normocephalic, atraumatic, mucus membranes moist, and no lesions NECK: Supple, full range of motion, no adenopathy, and thyroid normal DERMATOLOGY: Normal, without lesions, non-icteric, and non-hirsute BREAST: soft, non-tender, symmetric, no dominant mass, normal nipple-areolar complex, no lymphadenopathy, and no nipple discharge- skin tag- unchanged per patient on left breast ABDOMEN: soft, non-tender, and no masses. INCISION: No incisional redness, swelling, or drainage PELVIC: external genitalia normal, normal Bartholin's glands, urethra, Rosepine's glands, no vulvar lesions, no cervical lesions, good vaginal support, physiologic discharge present, normal appearing perineal body and perianal region BIMANUAL: uterus normal size, shape and consistency, no adnexal masses, and non-tender NEURO: alert and oriented x3,exam grossly non-focal EXTREMITIES: normal ASSESSMENT AND PLAN: 27 year old status post CS with normal course. Contraception plan: condoms Follow up: GDM: Needs 2 hour GTT, RTC for annual exams and PRN Zoloft increased to 50mg Ivy Jones MD documented in this encounter [facility] 08-21-2022 History of Present illness Narrative EARLY VISIT Erwin Baldwin is a 27 year old here for 1 week visit. Delivery Summary: C/s 08/14/2022 ROS: General: Denies any fever or chills Hypertension Screening: Headache? No. Visual Changes? No Mood: normal Depression: denies symptoms of depression. OB Depression and Anxiety Screening- This Encounter (since 08/20/2022) Over the past 2 weeks have you felt down, depressed, or hopeless? Negative Over the past two weeks, have you felt little interest or pleasure in doing things? Negative Feeling nervous, anxious or on edge 1-Several days Not being able to stop or control worrying 1-Several days Anxiety Pre-Screening Total (If >/= 3 additional questions will be reviewed) 2 Feeding: Breast feeding problems: None Bladder: No dysuria, gross hematuria, urinary frequency, urinary urgency, or incontinence Bowel symptoms: Negative for abdominal discomfort, blood in stools or black stools and change in bowel habits Abdomen: She reports no incisional redness, tenderness, erythema Bleeding: normal flow Bottom and Perineum: No issues Sleep: no sleep concerns, feels rested [place] since delivery: Not resumed Emotional support: Yes Exercise: N/A Other issues: None PHYSICAL EXAMINATION: BP 106/70 Wt 166 lb 3.2 oz (75.4 kg) LMP 11/07/2021 (Exact Date) Yes BMI 29.82 kg/m General: pleasant,female in no apparent distress, A&O x 3. Skin warm and intact. Breast: Deferred Abdomen: Deferred /Incision: No incisional redness, swelling, or drainage Pelvic: Deferred Bimanual: Deferred ASSESSMENT AND PLAN: 27 year old status post CS with normal course. Contraception plan: not applicable. Reinforced 6-week pelvic rest. Encouraged condom usage should patient deviate. Education: resources provided - see MA/RN note Follow up: Return to Clinic for 6 week visit and as needed Medical Decision Making: Medical Decision Making Level: 1 - N/A Ivy Jones MD documented in this encounter [facility] 08-14-2022 History of Present illness Narrative Patient delivered via by Dr. Hernandez on 08/14/22 at [facility]. See OB history. Gracia Anne RN documented in this encounter [facility] 08-07-2022 History and physical note Pre-Op History and Physical HPI: The patient is a 27 year old female presenting for pre-operative visit. She is scheduled for , for GDMA1, LGA, elective primary cs on 08/14/22. Procedure discussed along with risks, benefits and complications. Other alternatives discussed for management. Consent form signed? Yes. PAST MEDICAL HISTORY Diagnosis Date Adjustment disorder 12/28/2012 Anxiety 12/28/2012 Gallstones with obstruction of gallbladder 2003 resolved (post surgery) Gestational diabetes mellitus, class A1 06/11/2022 Ill-defined closed fractures of upper limb 2004 Kidney calculus 07/25/2013 evaluated by urology Knee pain 06/08/2013 resolved Ovarian cyst 07/25/2013 resolved PMH - PAST MEDICAL HISTORY OF 05-02-2001 normal color vision Pneumonia 07/25/2013 bilateral lungs Respiratory syncytial virus (RSV) resolved Seasonal allergies 06/08/2013 thyroid nodule PAST SURGICAL HISTORY Procedure Laterality Date CHOLEYCYSTOGRAM GALL BLADDER 2003 removal NEPHROLITHOTOMY REMOVAL STAGE 1 06/12/2018 TONSILLECTOMY & ADENOIDECTOMY <AGE 13 TYMPANOSTOMY LOCAL/TOPICAL ANESTHESIA TYMPANOSTOMY LOCAL/TOPICAL ANESTHESIA Current Outpatient Medications Medication Sig Dispense Refill blood sugar diagnostic test strip 1 Strip four times daily. Use as instructed 120 Strip 9 Lancets lancets 1 Each four times daily. Use as instructed 120 Each 9 sertraline (ZOLOFT) 25 mg tablet Take 1 tablet by mouth once daily. 30 tablet 0 promethazine (PHENERGAN) 12.5 mg tablet Take 1-2 tablets by mouth every 6 hours as needed. 30 tablet 0 multivitamin (CLASSIC ) 28 mg iron- 800 mcg tab(s) Take 1 tablet by mouth once daily. cyanocobalamin (VITAMIN B-12) 1,000 mcg tab Take 1,000 mcg by mouth once daily. Cholecalciferol, Vitamin D3, 125 mcg (5,000 unit) cap Take 1 capsule by mouth once daily. 90 capsule 2 No current facility-administered medications for this visit. ALLERGIES: Rocephin [Ceftriaxone] PERSONAL HISTORY: Social History Tobacco Use Smoking status: Never Smokeless tobacco: Never Tobacco comments: pt does not smoke Vaping Use Vaping Use: Never used Substance Use Topics Alcohol use: Not Currently Comment: occasional Drug use: No FAMILY HISTORY: FAMILY HISTORY Problem Relation Age of Onset Heart Mother Thyroid Mother thyroid cancer other (Hypotension) Mother other (Migraine) Mother other (HELLP) Mother Hypertension Father No Known Problems Brother Thyroid Maternal Grandmother Hypertension Maternal Grandmother Hypertension Maternal Grandfather Diabetes Maternal Grandfather Heart Maternal Grandfather other (Migraine) Maternal Grandfather Heart Paternal Grandmother Thyroid Paternal Grandmother No Known Problems Paternal Grandfather Thyroid Maternal Aunt other (Migraine) Maternal Uncle other (Migraine) Other Maternal cousin REVIEW OF SYMPTOMS: negative except as noted above PHYSICAL EXAMINATION: VITALS: Blood pressure 123/79, weight 182 lb (82.6 kg), last menstrual period 11/07/2021. GENERAL: The patient is well nourished, well hydrated in no acute distress. , The patient is oriented to time, place, and person. NECK: full range of motion ABD: gravid, non tender. Cervical exam: closed/40/-5 IMPRESSION: @ 39 weeks- GDMA1, LGA, Obesity in with an unfavorable cervix- opting for elective primary cs PLAN: Primary elective CS @ 39weeks Pt has been counseled on risks/benefits and alternatives of surgery including but not limited to anesthesia, bleeding, infection, injury to pelvic structures including bowel, bladder, ureters and vessels. Pt wishes to proceed with surgery at this time. Possible need for blood transfusion reviewed. Discussed with the patient LGA abdominal and estimated weight are both greater than 99th percentile. We discussed that ultrasound may be off by 10 to 15%. Patient and understand that primary section does carry risks and estimated weight may not quite be 5000 g. Patient at this time does not wish to proceed with a vaginal delivery unless she proceeds in active spontaneous labor. On today's exam her cervix is not favorable she is closed thick and head is -5 station it is not engaged into the pelvis. Consent was signed. Pre and postop instructions were reviewed with the patient and her . They were given the opportunity ask any questions and they were answered to the best of my ability. I have reviewed and updated past medical and surgical history, medications and allergies Ivy Hernandez, MD documented in this encounter [facility] 08-07-2022 History of Present illness Narrative NST SUMMARY PROVIDER ASSESSMENT AND INTERPRETATION Erwin Baldwin is a 27 year old female, , who is at 38w0d with an ALLEN of 08/21/2022, by Ultrasound dating method. Indications for NST: Diabetes - Diet Controlled and Obesity Baseline: 140 Variability: Moderate Accelerations: Present 15 X 15 Decelerations: None Contractions: TOCO: Irregular Interpretation: Category I and Reactive SIGNATURE: Ivy Jones MD documented in this encounter [facility] 08-07-2022 Miscellaneous Notes DM- Pt doing well today. Denies Vaginal Bleeding, Leaking fluid, or contractions. Pt reports good movement. Pt still requesting to proceed with primary elective cs at 39 weeks - LGA, GDMA1, unfavorable cervix. Pt reports all BS are wnl. Pre op done today. NST today. Ivy Jones MD documented in this encounter [facility] 08-07-2022 Carlos Velazquez Ma - 08/07/2022 9:14 AM EST SEQUENTIAL SCREENINGS The [facility] offers sequential screenings for women who are interested in screenings for chromosomal abnormalities and certain defects during a . The sequential screen combines ultrasound and blood tests to determine the risk of chromosomal abnormalities, including Down's Syndrome (Trisomy 21) and Trisomy 18, as well as open neural tube defects including spina bifida. Ultrasound examination is performed between 11 weeks and 13 weeks gestational age. Blood tests are drawn after the ultrasound and again later in the between 15 and 21 weeks gestational age. Please let your physician know if you are interested in this testing. It will require an appointment with our turfgrass technician. This is not an ultrasound performed by a physician in our office during a routine visit. SIGNS AND SYMPTOMS OF LABOR 1. Contractions every 10 minutes or more often 2. Clear, pink, or brownish fluid (water) leaking from vagina 3. Feeling that baby is pushing down, pressure 4. Low, dull backache 5. Cramps that feel like a period 6. Cramps with or without diarrhea If you notice any of the above symptoms, contact our office at [phone] and ask to speak with a nurse. After hours, you can call doctors registry at [phone] OR call [facility] at [phone] and ask to have the doctor front counter attendant paged. If you consider this an emergency, dial 4--6 or go to your nearest emergency department. NEED HELP? Are you dealing with a violent or abusive relationship? Are you a victim of rape or sexual assult? Call [facility] ([place]) 24 hour Crisis Hotline: 748.515.6463 or 415-657-9512. MANUAL Your Guide to a Healthy manual is now on-line. Visit [email or web address] to download your free copy documented in this encounter [facility] 08-06-2022 Miscellaneous Notes Patient has been identified by name and date of : Yes pharmacy phones for refill(s): Requested Prescriptions Pending Prescriptions Disp Refills sertraline (ZOLOFT) 25 mg tablet [Pharmacy Med Name: SERTRALINE HCL 25 MG TABLET] 30 tablet 0 Sig: TAKE 1 TABLET BY MOUTH EVERY DAY Date of last office visit in primary care: 03/20/22 Last 2 Encounter Wt Readings: Date: Wt: 07/24/2022 83.5 kg (184 lb) 07/10/2022 83 kg (183 lb) Previous labs/tests for medication: Not applicable Thank you. Dina Woodrfuf LPN documented in this encounter [facility] 07-31-2022 History of Present illness Narrative NST SUMMARY PROVIDER ASSESSMENT AND INTERPRETATION Erwin Baldwin is a 27 year old female, , who is at 37w0d with an ALLEN of 08/21/2022, by Ultrasound dating method. Indications for NST: Gestational Diabetes - Diet Controlled and Obesity Baseline: 135 Variability: Moderate Accelerations: Present 15 X 15 Decelerations: None Contractions: TOCO: none Interpretation: Category I and Reactive SIGNATURE: Ivy Jones MD documented in this encounter [facility] 07-31-2022 Miscellaneous Notes DM- Pt doing well today. Denies Vaginal Bleeding, Leaking fluid, or contractions. Pt reports good movement. Denies [place], visual changes or epigastric pain. Pt reports only one abnormal 2hr PP BS. Discussed Primary cs vs vaginal delivery with LGA- again discussed may not be at 5000g- but after risks and benefits reviewed pt would like to proceed with primary cs at 39 weeks unless spontaneous active labor prior. S/Sx of PRE E reviewed with patient and . No RUQ pain on exam. Negative Protein. NSTs until delivery. RTO one week. Kick counts. Ivy Jones MD documented in this encounter [facility] 07-31-2022 Carlos Velazquez Ma - 07/31/2022 3:32 PM EST SEQUENTIAL SCREENINGS The [facility] offers sequential screenings for women who are interested in screenings for chromosomal abnormalities and certain defects during a . The sequential screen combines ultrasound and blood tests to determine the risk of chromosomal abnormalities, including Down's Syndrome (Trisomy 21) and Trisomy 18, as well as open neural tube defects including spina bifida. Ultrasound examination is performed between 11 weeks and 13 weeks gestational age. Blood tests are drawn after the ultrasound and again later in the between 15 and 21 weeks gestational age. Please let your physician know if you are interested in this testing. It will require an appointment with our turfgrass technician. This is not an ultrasound performed by a physician in our office during a routine visit. SIGNS AND SYMPTOMS OF LABOR 1. Contractions every 10 minutes or more often 2. Clear, pink, or brownish fluid (water) leaking from vagina 3. Feeling that baby is pushing down, pressure 4. Low, dull backache 5. Cramps that feel like a period 6. Cramps with or without diarrhea If you notice any of the above symptoms, contact our office at [phone] and ask to speak with a nurse. After hours, you can call doctors registry at [phone] OR call [facility] at [phone] and ask to have the doctor front counter attendant paged. If you consider this an emergency, dial 9-5-3 or go to your nearest emergency department. NEED HELP? Are you dealing with a violent or abusive relationship? Are you a victim of rape or sexual assult? Call [facility] ([place]) 24 hour Crisis Hotline: 546.647.7474 or 809-673-5953. MANUAL Your Guide to a Healthy manual is now on-line. Visit [email or web address] to download your free copy documented in this encounter [facility] 07-25-2022 Miscellaneous Notes Patient notified. Gracia Anne RN No- she had BPP yesterday. Patient notified and NSTs scheduled for next 2 weeks. Did patient need to return this week for one? Gracia Anne RN Left message for patient to return phone call regarding US results/recommendations ----- Message from Ivy Hernandez MD sent at 07/24/2022 9:59 AM EDT ----- Please notify patient that we will do NSTs until delivery (weekly). Please schedule prior to ob appt. Orders placed. documented in this encounter [facility] 07-24-2022 History of Present illness Narrative documented in this encounter [facility] 07-24-2022 Miscellaneous Notes DM- Pt doing well today. Denies Vaginal Bleeding, Leaking fluid, or contractions. Pt reports good movement. Growth us today- >99%, bpp 04/29. Discussed delivery 39 weeks for GDMA1- reviewed option for elective primary cs. Pt would like to schedule cs at 39 weeks. Pt understands us growth can be off by +/- 15%. Pt reports BS well controlled, no abnormal. Gbs today. RTO 1 week. Ivy Jones MD documented in this encounter [facility] 07-24-2022 Instructions Emile Velazquez Ma - 07/24/2022 8:10 AM EDT SEQUENTIAL SCREENINGS The [facility] offers sequential screenings for women who are interested in screenings for chromosomal abnormalities and certain defects during a . The sequential screen combines ultrasound and blood tests to determine the risk of chromosomal abnormalities, including Down's Syndrome (Trisomy 21) and Trisomy 18, as well as open neural tube defects including spina bifida. Ultrasound examination is performed between 11 weeks and 13 weeks gestational age. Blood tests are drawn after the ultrasound and again later in the between 15 and 21 weeks gestational age. Please let your physician know if you are interested in this testing. It will require an appointment with our turfgrass technician. This is not an ultrasound performed by a physician in our office during a routine visit. SIGNS AND SYMPTOMS OF LABOR 1. Contractions every 10 minutes or more often 2. Clear, pink, or brownish fluid (water) leaking from vagina 3. Feeling that baby is pushing down, pressure 4. Low, dull backache 5. Cramps that feel like a period 6. Cramps with or without diarrhea If you notice any of the above symptoms, contact our office at [phone] and ask to speak with a nurse. After hours, you can call doctors registry at [phone] OR call [facility] at [phone] and ask to have the doctor front counter attendant paged. If you consider this an emergency, dial 5--8 or go to your nearest emergency department. NEED HELP? Are you dealing with a violent or abusive relationship? Are you a victim of rape or sexual assult? Call [facility] ([place]) 24 hour Crisis Hotline: 795.342.4316 or 503-707-2728. MANUAL Your Guide to a Healthy manual is now on-line. Visit [email or web address] [email or web address] to download your free copy documented in this encounter [facility] 07-23-2022 Miscellaneous Notes ordered 35w6d Patient has a growth u/s tomorrow. Please file order. Gracia Anne RN documented in this encounter [facility] 07-18-2022 Miscellaneous Notes OK to continue to monitor as long as able to urinate and pain not severe. Increase hydration and do not hold bladder for long periods of time. Thank you, Jennifer Delaney APRN.CNM 35w1d Patient 34w6d, last seen 07/10. Next appointment 07/24. Tiffanie Roque RN documented in this encounter [facility] 07-17-2022 Miscellaneous Notes Patient notified and voiced understanding of below information and instructions. Tiffanie Roque RN Left message to call office. Tiffanie Roque RN Results reviewed with DM. Will wait to see culture results. Please notify patient of dehydration and the need to increase water and fluids. Maria Teresa Stephen APRN.CNM [facility] calling with critical value results on UA that was done this morning. Patients Ketones are 150. UA results to provider to review. Patient 35w0d. Maria Teresa, is patient still at L&D? Tiffanie Roque RN documented in this encounter [facility] 07-10-2022 Miscellaneous Notes DM- Pt doing well today. Denies Vaginal Bleeding, Leaking fluid, or contractions. Pt reports good movement. Has growth scheduled at 36 weeks. BS log reviewed- overall well controlled. Kick counts reviewed. RTO 2 wks. Ivy Jones MD documented in this encounter [facility] 07-10-2022 Instructions Emile Velazquez Ma - 07/10/2022 8:59 AM EDT SEQUENTIAL SCREENINGS The [facility] offers sequential screenings for women who are interested in screenings for chromosomal abnormalities and certain defects during a . The sequential screen combines ultrasound and blood tests to determine the risk of chromosomal abnormalities, including Down's Syndrome (Trisomy 21) and Trisomy 18, as well as open neural tube defects including spina bifida. Ultrasound examination is performed between 11 weeks and 13 weeks gestational age. Blood tests are drawn after the ultrasound and again later in the between 15 and 21 weeks gestational age. Please let your physician know if you are interested in this testing. It will require an appointment with our turfgrass technician. This is not an ultrasound performed by a physician in our office during a routine visit. SIGNS AND SYMPTOMS OF LABOR 1. Contractions every 10 minutes or more often 2. Clear, pink, or brownish fluid (water) leaking from vagina 3. Feeling that baby is pushing down, pressure 4. Low, dull backache 5. Cramps that feel like a period 6. Cramps with or without diarrhea If you notice any of the above symptoms, contact our office at [phone] and ask to speak with a nurse. After hours, you can call doctors registry at [phone] OR call [facility] at [phone] and ask to have the doctor front counter attendant paged. If you consider this an emergency, dial 9-1-1 or go to your nearest emergency department. NEED HELP? Are you dealing with a violent or abusive relationship? Are you a victim of rape or sexual assult? Call [facility] 24 hour Crisis Hotline: 548.719.2826 or 892-878-1745. MANUAL Your Guide to a Healthy manual is now on-line. Visit [email or web address] to download your free copy documented in this encounter [facility] 06-14-2022 Miscellaneous Notes DM- Pt doing well today. Denies Vaginal Bleeding, Leaking fluid, or contractions. Pt reports good movement. Growth us scheduled. GDMA 1 reviewed- BS well controlled. Continue to monitor. RTO 2 weeks. Kick counts reviewed. Flu vaccine today. Ivy Jones MD documented in this encounter [facility] 06-14-2022 Instructions Emile Velazquez Il - 06/14/2022 10:43 AM EDT SEQUENTIAL SCREENINGS The [facility] offers sequential screenings for women who are interested in screenings for chromosomal abnormalities and certain defects during a . The sequential screen combines ultrasound and blood tests to determine the risk of chromosomal abnormalities, including Down's Syndrome (Trisomy 21) and Trisomy 18, as well as open neural tube defects including spina bifida. Ultrasound examination is performed between 11 weeks and 13 weeks gestational age. Blood tests are drawn after the ultrasound and again later in the between 15 and 21 weeks gestational age. Please let your physician know if you are interested in this testing. It will require an appointment with our turfgrass technician. This is not an ultrasound performed by a physician in our office during a routine visit. SIGNS AND SYMPTOMS OF LABOR 1. Contractions every 10 minutes or more often 2. Clear, pink, or brownish fluid (water) leaking from vagina 3. Feeling that baby is pushing down, pressure 4. Low, dull backache 5. Cramps that feel like a period 6. Cramps with or without diarrhea If you notice any of the above symptoms, contact our office at [phone] and ask to speak with a nurse. After hours, you can call doctors registry at [phone] OR call [facility] at [phone] and ask to have the doctor front counter attendant paged. If you consider this an emergency, dial -2 or go to your nearest emergency department. NEED HELP? Are you dealing with a violent or abusive relationship? Are you a victim of rape or sexual assult? Call [facility] ([place]) 24 hour Crisis Hotline: 463.586.2916 or 134-484-6532. MANUAL Your Guide to a Healthy manual is now on-line. Visit [email or web address] ncyGuide to download your free copy documented in this encounter [facility] 06-12-2022 History of Present illness Narrative DIABETES CARE AND EDUCATION VISIT Location: [place] Type of visit: In person individual PATIENT'S MAIN CONCERN TODAY: newly dx GDM Support person present for education today: none Cognitive ability: Alert and oriented Motivation to learn: Interested Learning barriers identified by educator: none Method of instruction: written, verbal, and demonstration DIABETES FINDINGS: Monitoring: Started testing this morning, 2 hr post meal sugars were approximately 102 and less than 90 after lunch Meal Planning: reviewed basics Medications: reviewed insulin as most commonly used in due to not crossing the placenta if sugars begin to be elevated Problem Solving:reporting sugars to OB Physical Activity: encouraged walking as able Reducing Risks: not discussed Healthy Coping: not discussed HANDOUTS: Healthy You: Diabetes and LEARNING RESPONSE: Healthy eating: Demonstrated understanding/competency today or at previous visit Being active: Demonstrated understanding/competency today or at previous visit Monitoring glucose: Demonstrated understanding/competency today or at previous visit POSSIBLE FUTURE TOPICS: 1. DIABETES CARE AND EDUCATION PLAN: Individual follow-up Time Spent (Minutes): 30 This visit note will be communicated to the healthcare provider via access to shared medical record. SIGNATURE: Geroge Wade RN PATIENT NAME: Erwin Baldwin DATE: June 12, 2022 TIME: 3:29 PM PAGER: documented in this encounter [facility] 06-11-2022 History of Past i llness Narrative Problem Noted Date Resolved Date Gestational diabetes mellitus, class A1 06/11/20 22 09/25/2022 Low-lying placenta 03/28/2022 05/29/2022 Routine physical examination 06/19/2018 Ovarian cyst 07/25/2013 08/11/2015 documented as of this encounter (statuses as of 09/26/2022) [facility] History of Past illness Narrative* Problem Noted Date Resolved Date Gestational diabetes mellitus, class A1 06/11/20 22 09/25/2022 Low-lying placenta 03/28/2022 05/29/2022 Routine physical examination 06/19/2018 Ovarian cyst 07/25/2013 08/11/2015 documented as of this encounter (statuses as of 10/30/2022) [address]20-2022 History of Past illness Narrative* Problem Noted Date Resolved Date Gestational diabetes mellitus, class A1 06/11/20 22 09/25/2022 Low-lying placenta 03/28/2022 05/29/2022 Routine physical examination 06/19/2018 Ovarian cyst 07/25/2013 08/11/2015 documented as of this encounter (statuses as of 02/20/2023) [address]20-2022 History of Past illness Narrative* Problem Noted Date Resolved Date Gestational diabetes mellitus, class A1 06/11/20 22 09/25/2022 Low-lying placenta 03/28/2022 05/29/2022 Routine physical examination 06/19/2018 Ovarian cyst 07/25/2013 08/11/2015 documented as of this encounter (statuses as of 02/21/2023) [facility] of Past illness Narrative* Problem Noted Date Resolved Date Gestational diabetes mellitus, class A1 06/11/20 22 09/25/2022 Low-lying placenta 03/28/2022 05/29/2022 Routine physical examination 06/19/2018 Ovarian cyst 07/25/2013 08/11/2015 documented as of this encounter (statuses as of 03/10/2023) [address]20-2022 History of Past illness Narrative* Problem Noted Date Diagnosed Date Resolved Date Gestational diabetes mellitus, class A1 06/11/2022 09/25/2022 Low-lying placenta 03/28/2022 Routine physical examination 06/19/2018 10/15/2018 Ovarian cyst 07/25/2013 08/11/2015 documented as of this encounter (statuses as of 04/04/2023) [address]20-2022 History of Past illness Narrative* Problem Noted Date Diagnosed Date Resolved Date Gestational diabetes mellitus, class A1 06/11/2022 09/25/2022 Low-lying placenta 03/28/2022 2 Routine physical examination 06/19/2018 10/15/2018 Ovarian cyst 07/25/2013 08/11/2015 documented as of this encounter (statuses as of 04/11/2023) [address]20-2022 History of Past illness Narrative* Problem Noted Date Diagnosed Date Resolved Date Gestational diabetes mellitus, class A1 06/11/2022 09/25/2022 Low-lying placenta 03/28/2022 2 Routine physical examination 06/19/2018 10/15/2018 Ovarian cyst 07/25/2013 08/11/2015 documented as of this encounter (statuses as of 05/21/2023) [address]20-2022 History of Past illness Narrative* Problem Noted Date Diagnosed Date Resolved Date Gestational diabetes mellitus, class A1 06/11/2022 09/25/2022 Low-lying placenta 03/28/2022 2 Routine physical examination 06/19/2018 10/15/2018 Ovarian cyst 07/25/2013 08/11/2015 documented as of this encounter (statuses as of 05/21/2023) [address]20-2022 History of Past illness Narrative* Problem Noted Date Diagnosed Date Resolved Date Gestational diabetes mellitus, class A1 06/11/2022 09/25/2022 Low-lying placenta 03/28/2022 2 Routine physical examination 06/19/2018 10/15/2018 Ovarian cyst 07/25/2013 08/11/2015 documented as of this encounter (statuses as of 06/08/2023) [address]20-2022 History of Past illness Narrative* Problem Noted Date Diagnosed Date Resolved Date Gestational diabetes mellitus, class A1 06/11/2022 09/25/2022 Low-lying placenta 03/28/2022 2 Routine physical examination 06/19/2018 10/15/2018 Ovarian cyst 07/25/2013 08/11/2015 documented as of this encounter (statuses as of 06/10/2023) [address]20-2022 History of Past illness Narrative* Problem Noted Date Diagnosed Date Resolved Date Gestational diabetes mellitus, class A1 06/11/2022 09/25/2022 Low-lying placenta 03/28/2022 2 Routine physical examination 06/19/2018 10/15/2018 Ovarian cyst 07/25/2013 08/11/2015 documented as of this encounter (statuses as of 06/21/2023) [address]20-2022 History of Past illness Narrative* Problem Noted Date Diagnosed Date Resolved Date Gestational diabetes mellitus, class A1 06/11/2022 09/25/2022 Low-lying placenta 03/28/2022 2 Routine physical examination 06/19/2018 10/15/2018 Ovarian cyst 07/25/2013 08/11/2015 documented as of this encounter (statuses as of 08/02/2023) [address]20-2022 History of Past illness Narrative* Problem Noted Date Diagnosed Date Resolved Date Gestational diabetes mellitus, class A1 06/11/2022 09/25/2022 Low-lying placenta 03/28/2022 2 Routine physical examination 06/19/2018 10/15/2018 Ovarian cyst 07/25/2013 08/11/2015 documented as of this encounter (statuses as of 09/02/2023) [address]20-2022 History of Past illness Narrative* Problem Noted Date Diagnosed Date Resolved Date Gestational diabetes mellitus, class A1 06/11/2022 09/25/2022 Low-lying placenta 03/28/2022 2 Routine physical examination 06/19/2018 10/15/2018 Ovarian cyst 07/25/2013 08/11/2015 documented as of this encounter (statuses as of 11/26/2023) [address]20-2022 History of Past illness Narrative* Problem Noted Date Diagnosed Date Resolved Date Gestational diabetes mellitus, class A1 06/11/2022 09/25/2022 Low-lying placenta 03/28/2022 2 Routine physical examination 06/19/2018 10/15/2018 Ovarian cyst 07/25/2013 08/11/2015 documented as of this encounter (statuses as of 12/01/2023) [address]20-2022 History of Past illness Narrative* Problem Noted Date Diagnosed Date Resolved Date Gestational diabetes mellitus, class A1 06/11/2022 09/25/2022 Low-lying placenta 03/28/2022 2 Routine physical examination 06/19/2018 10/15/2018 Ovarian cyst 07/25/2013 08/11/2015 documented as of this encounter (statuses as of 12/04/2023) [facility] Miscellaneous Notes* Telephone Encounter - Gracia Anne RN - 06/11/2022 9:55 AM EDT Orders attached to upcoming appointments. Linked to OB episode. Gracia Anne RN * Telephone Encounter - Ivy Hernandez MD - 06/11/2022 9:50 AM EDT Signed. Please send copy of 3hr To L&D for chart * Telephone Encounter - Gracia Anne RN - 06/11/2022 9:46 AM EDT Patient notified and appointments scheduled. Please file orders. Gracia Anne RN * Telephone Encounter - Gracia Anne RN - 06/11/2022 9:35 AM EDT ----- Message from Ivy Hernandez MD sent at 06/11/2022 8:29 AM EDT ----- Failed 3hr GTT. Please pend all diabetic testing supplies. Arrange for Diabetic teaching. [facility] Miscellaneous Notes* Quick Notes - Ivy Hernandez MD - 05/29/2022 9:11 AM EDT DM- Pt doing well today. Denies Vaginal Bleeding, Leaking fluid, or contractions. Pt reports good movement. 28 week labs today. Growth today- Placenta Fundal. Growth 94%. Will restart Zoloft due to anxiety. BANNER signed and declined- MIRNEA at 8 weeks PP. Tdap today. Ivy Jones MD [facility] History of Present illness Narrative* Emile Velazquez Ma - 05/29/2022 8:24 AM EDT Patient identified by name and date of . Erwin Baldwin presents today for a vaccination of Tdap. Patient denies an allergy to latex: yes Patient denies a severe (life-threatening) allergy to a previous dose of Tdap, DTP, DTaP, DT or Td vaccine. Yes Patient denies history of epilepsy or neurological problems: Yes Patient is afebrile and denies being moderately or severely ill: Yes Patient denies history of Guillain-Gallitzin Syndrome (a severe paralytic illness): Yes Tdap Adacel injection was given without incident. See immunizations for details of immunizations administered today. VIS sheet provided: Yes Provider Mary was present in office at time of injection. Emile Velazquez Ma documented [facility] Instructions* Patient Instructions* Emile Velazquez Ma - 05/29/2022 8:13 AM EDT SEQUENTIAL SCREENINGS The [facility] offers sequential screenings for women who are interested in screenings for chromosomal abnormalities and certain defects during a . The sequential screen combinesultrasound and blood tests to determine the risk of chromosomal abnormalities, including Down's Syndrome (Trisomy 21) and Trisomy 18, as well as open neural tube defects including spina bifida. Ultrasound examination is performed between 11 weeks and 13 weeks gestational age. Blood tests are drawn after the ultrasound and again later in the between 15 and 21 weeks gestational age. Please let your physician know if you are interested in this testing. It will require an appointment withour turfgrass technician. This is not an ultrasound performed by a physician in our office during a routine visit. SIGNS AND SYMPTOMS OF LABOR 1. Contractions every 10 minutes or more often 2. Clear, pink, or brownish fluid (water) leaking from vagina 3. Feeling that baby is pushing down, pressure 4. Low, dull backache 5. Cramps that feel like a period 6. Cramps with or without diarrhea If you notice any of the above symptoms, contact our office at [phone] and ask to speak with anurse. After hours, you can call doctors registry at [phone] OR call [facility] at [phone] ask to have the doctor front counter attendant paged. If you consider this an emergency, dial 9-1-4 or go to your nearest emergency department. NEED HELP? Are you dealing with a violent or abusive relationship? Are you a victim of rape or sexual assult? Call [facility] ([place]) 24 hour Crisis Hotline: 448.482.4898 or 125-743-2069. MANUAL Your Guide to a Healthy manual is now on-line. Visit [email or web address] to download your free copy [facility] Miscellaneous Notes* Telephone Encounter - Gracia Anne RN - 04/02/2022 9:22 AM EDT Order signed by EDIN and faxed. Gracia Anne RN * Telephone Encounter - Gracia Anne RN - 04/01/2022 2:55 PM EDT Breast pump order received from [employer]. To DM to sign. Gracia Anne RN documented in this encounterW[facility]22 Miscellaneous Notes* Quick Notes - Ivy Hernandez MD - 03/28/2022 3:55 PM EDT DM- Pt doing well today. Denies Vaginal Bleeding, Leaking fluid, or contractions. Reports +FM. Low lying placenta- reviewed restrictions. Repeat ultrasound 6-8 weeks to check location. Restarting Zoloft. RTO 4 wks. Vit D and TSH ordered today. Ivy Jones MD documented in this encounterW[facility]07[facility]22 Instructions* Patient Instructions* Evelyn Riggs MA - 03/28/2022 3:33 PM EDT SEQUENTIAL SCREENINGS The [facility] offers sequential screenings for women who are interested in screenings for chromosomal abnormalities and certain defects during a . The sequential screen combinesultrasound and blood tests to determine the risk of chromosomal abnormalities, including Down's Syndrome (Trisomy 21) and Trisomy 18, as well as open neural tube defects including spina bifida. Ultrasound examination is performed between 11 weeks and 13 weeks gestational age. Blood tests are drawn after the ultrasound and again later in the between 15 and 21 weeks gestational age. Please let your physician know if you are interested in this testing. It will require an appointment withour turfgrass technician. This is not an ultrasound performed by a physician in our office during a routine visit. SIGNS AND SYMPTOMS OF LABOR 1. Contractions every 10 minutes or more often 2. Clear, pink, or brownish fluid (water) leaking from vagina 3. Feeling that baby is pushing down, pressure 4. Low, dull backache 5. Cramps that feel like a period 6. Cramps with or without diarrhea If you notice any of the above symptoms, contact our office at [phone] and ask to speak with anurse. After hours, you can call doctors registry at [phone] OR call [facility] at [phone] ask to have the doctor front counter attendant paged. If you consider this an emergency, dial 9--1 or go to your nearest emergency department. NEED HELP? Are you dealing with a violent or abusive relationship? Are you a victim of rape or sexual assult? Call [facility] ([place]) 24 hour Crisis Hotline: 113.329.4560 or 783-464-3160. MANUAL Your Guide to a Healthy manual is now on-line. Visit [email or web address] to download your free copy documented in this encounterW[facility] History of Past illness Narrative* Problem Noted Date Resolved Date Low-lying placenta 03/28/2022 05/29/2022 Routine physical examination 06/19/2018 Ovarian cyst 07/25/2013 08/11/2015 documented as of this encounter (statuses as of 05/29/2022) [address]07-2022 History of Past illness Narrative* Problem Noted Date Resolved Date Low-lying placenta 03/28/2022 05/29/2022 Routine physical examination 06/19/2018 Ovarian cyst 07/25/2013 08/11/2015 documented as of this encounter (statuses as of 05/29/2022) [facility] Narrative* Problem Noted Date Resolved Date Low-lying placenta 03/28/2022 05/29/2022 Routine physical examination 06/19/2018 Ovarian cyst 07/25/2013 08/11/2015 documented as of this encounter (statuses as of 06/06/2022) [facility] Narrative* Problem Noted Date Resolved Date Low-lying placenta 03/28/2022 05/29/2022 Routine physical examination 06/19/2018 Ovarian cyst 07/25/2013 08/11/2015 documented as of this encounter (statuses as of 06/11/2022) [address]07-2022 History of Past illness Narrative* Problem Noted Date Resolved Date Low-lying placenta 03/28/2022 05/29/2022 Routine physical examination 06/19/2018 Ovarian cyst 07/25/2013 08/11/2015 documented as of this encounter (statuses as of 06/12/2022) [address]07-2022 History of Past illness Narrative* Problem Noted Date Resolved Date Low-lying placenta 03/28/2022 05/29/2022 Routine physical examination 06/19/2018 Ovarian cyst 07/25/2013 08/11/2015 documented as of this encounter (statuses as of 06/14/2022) [address]2022 History of Past illness Narrative* Problem Noted Date Resolved Date Low-lying placenta 03/28/2022 05/29/2022 Routine physical examination 06/19/2018 Ovarian cyst 07/25/2013 08/11/2015 documented as of this encounter (statuses as of 07/10/2022) [address]07-2022 History of Past illness Narrative* Problem Noted Date Resolved Date Low-lying placenta 03/28/2022 05/29/2022 Routine physical examination 06/19/2018 Ovarian cyst 07/25/2013 08/11/2015 documented as of this encounter (statuses as of 07/17/2022) [address]07-2022 History of Past illness Narrative* Problem Noted Date Resolved Date Low-lying placenta 03/28/2022 05/29/2022 Routine physical examination 06/19/2018 Ovarian cyst 07/25/2013 08/11/2015 documented as of this encounter (statuses as of 07/18/2022) [address]07-2022 History of Past illness Narrative* Problem Noted Date Resolved Date Low-lying placenta 03/28/2022 05/29/2022 Routine physical examination 06/19/2018 Ovarian cyst 07/25/2013 08/11/2015 documented as of this encounter (statuses as of 07/23/2022) [address]07-2022 History of Past illness Narrative* Problem Noted Date Resolved Date Low-lying placenta 03/28/2022 05/29/2022 Routine physical examination 06/19/2018 Ovarian cyst 07/25/2013 08/11/2015 documented as of this encounter (statuses as of 07/24/2022) [address]07-2022 History of Past illness Narrative* Problem Noted Date Resolved Date Low-lying placenta 03/28/2022 05/29/2022 Routine physical examination 06/19/2018 Ovarian cyst 07/25/2013 08/11/2015 documented as of this encounter (statuses as of 07/24/2022) [facility] Narrative* Problem Noted Date Resolved Date Low-lying placenta 03/28/2022 05/29/2022 Routine physical examination 06/19/2018 Ovarian cyst 07/25/2013 08/11/2015 documented as of this encounter (statuses as of 07/25/2022) [facility] Narrative* Problem Noted Date Resolved Date Low-lying placenta 03/28/2022 05/29/2022 Routine physical examination 06/19/2018 Ovarian cyst 07/25/2013 08/11/2015 documented as of this encounter (statuses as of 07/31/2022) [facility] Narrative* Problem Noted Date Resolved Date Low-lying placenta 03/28/2022 05/29/2022 Routine physical examination 06/19/2018 Ovarian cyst 07/25/2013 08/11/2015 documented as of this encounter (statuses as of 08/07/2022) [facility] Narrative* Problem Noted Date Resolved Date Low-lying placenta 03/28/2022 05/29/2022 Routine physical examination 06/19/2018 Ovarian cyst 07/25/2013 08/11/2015 documented as of this encounter (statuses as of 08/08/2022) [facility] Narrative* Problem Noted Date Resolved Date Low-lying placenta 03/28/2022 05/29/2022 Routine physical examination 06/19/2018 Ovarian cyst 07/25/2013 08/11/2015 documented as of this encounter (statuses as of 08/14/2022) [facility] Narrative* Problem Noted Date Resolved Date Low-lying placenta 03/28/2022 05/29/2022 Routine physical examination 06/19/2018 Ovarian cyst 07/25/2013 08/11/2015 documented as of this encounter (statuses as of 08/21/2022) [facility] of Present illness Narrative* Katt Singh APRN.CONTRACTS MANAGER - 03/20/2022 5:40 PM EDT Chief Complaint Patient presents with: Anxiety HPI Erwin Baldwin is a 27 year old female who presents here today for Above Complaints. Erwin is an established patient of Dr. Mitch DO. Erwin is a new patient to today. Concerns today.. Anxiety: Hx of anxiety. Was on medication 2 years ago --- Lexapro 10 mg. Has been off of this medication x 1year. Was seeing a therapist about this time as well d/t worsening situational anxiety r/t wedding planning and life events. Therapy helped. Reports full blown panic attacks at this time as well which xanax was prescribed for and gave relief. Got off of control to try to get and saw huge improvement in mood. Has not needed any medication since -- no SSRI or xanax. Pt is now 18 weeks and over the past month or so pt has felt like her anxiety is returning. Reports very worrisome about everything day to day. Anxiety is worse at night. Denies any problems sleeping because of it. Would like to get put back on medication before symptoms worsen. Very concerned about panic attacks returning. Also very worried about post- depression and would like to be on medication prior to that stage. Has appointment next week with OB -- finding out gender. Feeling nervous, anxious, or on edge 2 Over half the days Not being able to stop or control worrying 0 Not at all sure Worrying too much about different things 3 Nearly every day Trouble relaxing 0 Not at all sure Being so restless that it's hard to sit still 0 Not at all sure Being easily annoyed or irritable 3 Nearly every day Feeling afraid as if something awful might happen 0 Not at all sure [id number]-7 Anxiety Score 8 If you checked off any problems, how difficult have these problems made it for you to do your work,take care of things at home, or get along with other people? Not difficult at all Past medical history, appointments, medications, allergies reviewed. Previous Medical History PAST MEDICAL HISTORY Diagnosis Date Adjustment disorder 12/28/2012 Anxiety 12/28/2012 Gallstones with obstruction of gallbladder 2003 resolved (post surgery) Ill-defined closed fractures of upper limb 2004 Kidney calculus 07/25/2013 evaluated by urology Knee pain 06/08/2013 resolved Ovarian cyst 07/25/2013 resolved PMH - PAST MEDICAL HISTORY OF 05-02-2001 normal color vision Pneumonia 07/25/2013 bilateral lungs Respiratory syncytial virus (RSV) resolved Seasonal allergies 06/08/2013 thyroid nodule Previous Surgical History PAST SURGICAL HISTORY Procedure Laterality Date CHOLEYCYSTOGRAM GALL BLADDER 2004 removal NEPHROLITHOTOMY REMOVAL STAGE 1 06/12/2018 TONSILLECTOMY & ADENOIDECTOMY <AGE 13 TYMPANOSTOMY LOCAL/TOPICAL ANESTHESIA TYMPANOSTOMY LOCAL/TOPICAL ANESTHESIA Family History FAMILY HISTORY Problem Relation Age of Onset Heart Mother Thyroid Mother thyroid cancer other (Hypotension) Mother other (Migraine) Mother other (HELLP) Mother Hypertension Father No Known Problems Brother Thyroid Maternal Grandmother Hypertension Maternal Grandmother Hypertension Maternal Grandfather Diabetes Maternal Grandfather Heart Maternal Grandfather other (Migraine) Maternal Grandfather Heart Paternal Grandmother Thyroid Paternal Grandmother No Known Problems Paternal Grandfather Thyroid Maternal Aunt other (Migraine) Maternal Uncle other (Migraine) Other Maternal cousin Patient Allergies ALLERGIES Allergen Reactions Rocephin [Ceftriaxo* Hives hives, breathing problems Current Medications Current Outpatient Medications on File Prior to Visit Medication Sig promethazine (PHENERGAN) 12.5 mg tablet Take 1-2 tablets by mouth every 6 hours as needed. multivitamin (CLASSIC ) 28 mg iron- 800 mcg tab(s) Take 1 tablet by mouth once daily. cyanocobalamin (VITAMIN B-12) 1,000 mcg tab Take 1,000 mcg by mouth once daily. Cholecalciferol, Vitamin D3, 125 mcg (5,000 unit) cap Take 1 capsule by mouth once daily. No current facility-administered medications on file prior to visit. Social History Social History Tobacco Use Smoking status: Never Smoker Smokeless tobacco: Never Used Tobacco comment: pt does not smoke Vaping Use Vaping Use: Never used Substance Use Topics Alcohol use: Not Currently Comment: occasional Drug use: No REVIEW OF SYSTEMS: as above Reviewed relevant PMHx, PSHx, Social Hx, current medications and allergies. Review of Symptoms See HPI. All other systems are negative. EXAM: BP 90/60 (BP Site: Left Arm, BP Position: Sitting, BP Cuff Size: Regular Adult) Pulse 64 Resp 16 Wt 78.2 kg (172 lb 6.4 oz) LMP 11/07/2021 (Exact Date) BMI 30.93 kg/m General Appearance: Well appearing, alert, in no acute distress, well-hydrated, well nourished.. Skin: Skin color, texture, turgor normal, no suspicious rashes or lesions. Head: Normocephalic, no masses, lesions, tenderness or abnormalities. Neck: Supple, no adenopathy; thyroid symmetric, normal size, no bruits. Lungs: Lungs clear to auscultation. No wheezing, rhonchi, rales.. Heart: RRR without murmur, gallop, or rubs. No ectopy. Health Maintenance List COVID-19 VACCINE(3 - Booster for Pfizer series) due on 12/13/2021 DEPRESSION SCREENING due on 12/19/2021 PAP TESTING due on 10/12/2023 DTAP,TDAP,TD(5 - Td or Tdap) due on 05/25/2031 HPV VACCINE Completed INFLUENZA Completed HEPATITIS C SCREENING Completed HIV SCREENING Completed ASSESSMENT/PLAN: 1. EMILEE (generalized anxiety disorder) - ICD9: 300.02, ICD10: F41.1 Discussed options including counseling therapy and relaxation techniques verus medication use due to . Patient wanting to restart SSRI therapy. I am most familiar with Zoloft as tolerable and safe during and breast feeding. Discussed this with patient and gave her the option to wait to discuss with OB next week d/t success on Lexapro in the past. Pt wanting to start Zoloft. I will discuss this plan of care with Dr. Hernandez, [facility]. Follow-up in about 6 weeks and let me know how mood is. - Message sent to OB team. - SERTRALINE 25 MG TABLET RTO as needed in 6 weeks. Prescription instructions reviewed with patient as applicable. Potential red flag symptoms discussed with the patient. Reviewed appropriate action plan to take if red flag symptoms occur. Patient agreeable to treatment plan. Katt Singh APRN.CNP [id number] [place] [address] documented [facility] Miscellaneous Notes* Quick Notes - Ivy Hernandez MD - 02/27/2022 11:06 AM EDT DM- Pt doing well today. Denies Vaginal Bleeding, Leaking fluid, or cramping. Improvement in N/V. Anatomy us scheduled. RTO 4 wks. Ivy Jones MD documented in this encounterWexner [facility] Center06-08-2022 Instructions* Patient Instructions* Emile Marcus Mack - 02/27/2022 10:54 AM EDT SEQUENTIAL SCREENINGS [facility] offers sequential screenings for women who are interested in screenings for chromosomal abnormalities and certain defects during a . The sequential screen combinesultrasound and blood tests to determine the risk of chromosomal abnormalities, including Down's Syndrome (Trisomy 21) and Trisomy 18, as well as open neural tube defects including spina bifida. Ultrasound examination is performed between 11 weeks and 13 weeks gestational age. Blood tests are drawn after the ultrasound and again later in the between 15 and 21 weeks gestational age. Please let your physician know if you are interested in this testing. It will require an appointment withour turfgrass technician. This is not an ultrasound performed by a physician in our office during a routine visit. SIGNS AND SYMPTOMS OF LABOR 1. Contractions every 10 minutes or more often 2. Clear, pink, or brownish fluid (water) leaking from vagina 3. Feeling that baby is pushing down, pressure 4. Low, dull backache 5. Cramps that feel like a period 6. Cramps with or without diarrhea If you notice any of the above symptoms, contact our office at [phone] and ask to speak with anurse. After hours, you can call doctors registry at [phone] OR call [facility] at [phone] ask to have the doctor front counter attendant paged. If you consider this an emergency, dial 9-1-1 or go to your nearest emergency department. NEED HELP? Are you dealing with a violent or abusive relationship? Are you a victim of rape or sexual assult? Call [facility] ([facility] 24 hour Crisis Hotline: 448.338.1630 or 756-935-7520. MANUAL Your Guide to a Healthy manual is now on-line. Visit [email or web address] to download your free copy documented in this encounterWexner [facility] Center05-16-2022 Miscellaneous Notes* Telephone Encounter - Gracia Anne RN - 02/04/2022 10:35 AM EDT Patient notified. Gracia Anne RN The following approved medication requests have been transmitted electronically. Signed Prescriptions Disp Refills promethazine (PHENERGAN) 12.5 mg tablet 30 tablet 0 Sig: Take 1-2 tablets by mouth every 6 hours as needed. Authorizing Provider: IVY ALBARRAN Pharmacy Information Pharmacy Address Telephone [facility]/pharmacy #[id number] [place] [address] * Telephone Encounter - Ivy Hernandez MD - 02/04/2022 10:23 AM EDT Phenergan ordered * Telephone Encounter - Gracia Anne RN - 02/04/2022 9:47 AM EDT 11w5d Saw DM 01/30/22. States provider told her that she can send in rx for nausea if needed. Patient's nausea has worsened some. Still no vomiting. Not taking any OTC medications for it. Please advise. Gracia Anne RN documented in this encounterWexner Medical Center05-11-2022 Miscellaneous Notes* Quick Notes - Ivy Hernandez MD - 01/30/2022 4:21 PM EDT DM- Pt doing well today. Denies Vaginal Bleeding, Leaking fluid, or cramping. Has Nausea but no vomiting. Declines NT or Maternity 21. Anatomy us ordered. New OB labs today. RTO 4 wks. Ivy Jones MD documented in this encounterWexner Medical Center05-11-2022 Instructions* Patient Instructions* Emile Velazquez Frdeerick - 01/30/2022 4:09 PM EDT SEQUENTIAL SCREENINGS The [facility] offers sequential screenings for women who are interested in screenings for chromosomal abnormalities and certain defects during a . The sequential screen combinesultrasound and blood tests to determine the risk of chromosomal abnormalities, including Down's Syndrome (Trisomy 21) and Trisomy 18, as well as open neural tube defects including spina bifida. Ultrasound examination is performed between 11 weeks and 13 weeks gestational age. Blood tests are drawn after the ultrasound and again later in the between 15 and 21 weeks gestational age. Please let your physician know if you are interested in this testing. It will require an appointment withour turfgrass technician. This is not an ultrasound performed by a physician in our office during a routine visit. SIGNS AND SYMPTOMS OF LABOR 1. Contractions every 10 minutes or more often 2. Clear, pink, or brownish fluid (water) leaking from vagina 3. Feeling that baby is pushing down, pressure 4. Low, dull backache 5. Cramps that feel like a period 6. Cramps with or without diarrhea If you notice any of the above symptoms, contact our office at [phone] and ask to speak with anurse. After hours, you can call doctors registry at [phone] OR call [facility] at [phone] ask to have the doctor front counter attendant paged. If you consider this an emergency, dial 9--1 or go to your nearest emergency department. NEED HELP? Are you dealing with a violent or abusive relationship? Are you a victim of rape or sexual assult? Call [facility] ([place]) 24 hour Crisis Hotline: 384.545.3389 or 044-039-9222. MANUAL Your Guide to a Healthy manual is now on-line. Visit [email or web address] to download your free copy documented in this encounterWexner Medical Center04-06-2022 Miscellaneous Notes* Telephone Encounter - Gracia Anne RN - 12/26/2021 2:14 PM EDT Mychart message sent. Gracia Anne RN * Telephone Encounter - Maria Teresa Stephen APRN.CNM - 12/26/2021 12:55 PM EDT Agree with plan- Patient should start taking Vitamin B6 2x day and Unisom 25 mg at bedtime. She canstart with 1/2 pill of Unisom and work her way up to 1 full pill. If she is unable to keep food or liquid down for 24 hours she will need seen for evaluation. Thank you! Maria Teresa Stephen APRN.CNM * Telephone Encounter - Gracia Anne RN - 12/26/2021 12:48 PM EDT 7w0d Calling with worsening nausea. She is able to keep food and fluids down. Asking for medication to help. She is not currently taking anything. I did discuss vitamin B6 and unisom with her some too. Please advise. Okay to send mychart message with provider's specific instructions. Gracia Anne RN documented in this encounterWexner Medical Center03-24-2022 Miscellaneous Notes* Telephone Encounter - Lucille Holbrook Ma - 12/13/2021 1:10 PM EDT Pt notified and verbalized understanding Lucille Holbrook Ma * Telephone Encounter - Kaden Meyer DO - 12/12/2021 9:26 PM EDT No, she doesn't, please tell her CONGRATULATIONS and no need for recheck of testosterone. Kaden Meyer DO * Telephone Encounter - Lalit Gillette LPN - 12/12/2021 7:48 PM EDT Pt. had a positive test. Does she still need testosterone rechecked? * Telephone Encounter - Kaden Meyer DO - 12/12/2021 7:20 PM EDT Please inform patient that I am sorry for the delay in getting to review all her lab results with her. Her testosterone levels were slightly elevated. 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 Other hormonal levels were normal. Her vitamin D levels are low. Would recommend that she is taking 4,000-5,000 international unit(s) A day of vitamin D3 with a meal as a supplement. Her vitamin B12 levels are low normal. Would recommend 1,000-2,000 mcg daily of Vitamin B12 in the AM, with or without food. Her glucose was 103 which is slightly elevated if she was fasting but normal if she wasn't fasting for her lab draw. Kaden Meyer DO documented in this encounterWexner Medical Center09-28-2018 History of Past illness Narrative* Problem Noted Date Resolved Date Routine physical examination 06/19/2018 Ovarian cyst 07/25/2013 08/11/2015 documented as of this encounter (statuses as of 12/26/2021) [facility] Narrative* Problem Noted Date Resolved Date Routine physical examination 06/19/2018 Ovarian cyst 07/25/2013 08/11/2015 documented as of this encounter (statuses as of 12/27/2021) [facility] illness Narrative* Problem Noted Date Resolved Date Routine physical examination 06/19/2018 Ovarian cyst 07/25/2013 08/11/2015 documented as of this encounter (statuses as of 01/04/2022) [facility] Narrative* Problem Noted Date Resolved Date Routine physical examination 06/19/2018 Ovarian cyst 07/25/2013 08/11/2015 documented as of this encounter (statuses as of 01/09/2022) [facility] Narrative* Problem Noted Date Resolved Date Routine physical examination 06/19/2018 Ovarian cyst 07/25/2013 08/11/2015 documented as of this encounter (statuses as of 01/30/2022) [facility] Narrative* Problem Noted Date Resolved Date Routine physical examination 06/19/2018 Ovarian cyst 07/25/2013 08/11/2015 documented as of this encounter (statuses as of 02/04/2022) [facility] Narrative* Problem Noted Date Resolved Date Routine physical examination 06/19/2018 Ovarian cyst 07/25/2013 08/11/2015 documented as of this encounter (statuses as of 02/27/2022) [facility] Narrative* Problem Noted Date Resolved Date Routine physical examination 06/19/2018 Ovarian cyst 07/25/2013 08/11/2015 documented as of this encounter (statuses as of 03/20/2022) [facility] Narrative* Problem Noted Date Resolved Date Routine physical examination 06/19/2018 Ovarian cyst 07/25/2013 08/11/2015 documented as of this encounter (statuses as of 03/28/2022) [facility] Narrative* Problem Noted Date Resolved Date Routine physical examination 06/19/2018 Ovarian cyst 07/25/2013 08/11/2015 documented as of this encounter (statuses as of 03/28/2022) [facility] Narrative* Problem Noted Date Resolved Date Routine physical examination 06/19/2018 Ovarian cyst 07/25/2013 08/11/2015 documented as of this encounter (statuses as of 04/01/2022) [facility] Narrative* Problem Noted Date Resolved Date Routine physical examination 06/19/2018 Ovarian cyst 07/25/2013 08/11/2015 documented as of this encounter (statuses as of 04/02/2022) [facility] note* Diagnosis High serum testosterone- Primary [facility]* Diagnosis with uncertain dates in first trimester- Primary [facility]* Diagnosis Encounter for supervision of normal first in first trimester- Primary Supervision of normal first 11 weeks gestation of state, incidental documented [facility] noteNo assessment information availableWPeoples Hospital Work Phone: Evaluation note* Diagnosis Encounter for supervision of normal first in second trimester- Primary Supervision of normal first 15 weeks gestation of state, incidental [facility]* Diagnosis EMILEE (generalized anxiety disorder)- Primary Generalized anxiety disorder documented [facility]* Diagnosis Low-lying placenta- Primary Hemorrhage from placenta previa, unspecified as to episode of care 19 weeks gestation of state, incidental Vitamin D deficiency Unspecified vitamin D deficiency History of thyroid nodule Personal history of other endocrine, metabolic, and immunity disorders documented [facility] encounter [facility]* Diagnosis Encounter for anatomic survey- Primary 19 weeks gestation of state, incidental Obesity complicating , second trimester [facility]* Diagnosis Suspected placental problem not found- Primary 28 weeks gestation of state, incidental [facility]* Diagnosis 28 weeks gestation of - Primary state, incidental Excessive growth affecting management of in third trimester, single or unspecified fetus Need for vaccination Need for prophylactic vaccination and inoculation against unspecified single disease EMILEE (generalized anxiety disorder) Generalized anxiety disorder History of COVID-19 COVID-19 affecting in third trimester documented [facility]* Diagnosis Abnormal maternal glucose tolerance, antepartum- Primary [facility]* Diagnosis Abnormal maternal glucose tolerance, antepartum [facility]* Diagnosis Gestational diabetes mellitus, class A1- Primary Abnormal maternal glucose tolerance, complicating , childbirth, or the puerperium, unspecified as to episode of care 30 weeks gestation of state, incidental Need for influenza vaccination Need for prophylactic vaccination and inoculation against influenza [facility]* Diagnosis Gestational diabetes mellitus, class A1- Primary Abnormal maternal glucose tolerance, complicating , childbirth, or the puerperium, unspecified as to episode of care Excessive growth affecting management of in third trimester, single or unspecified fetus 34 weeks gestation of state, incidental [facility]* Diagnosis Gestational diabetes mellitus, class A1- Primary Abnormal maternal glucose tolerance, complicating , childbirth, or the puerperium, unspecified as to episode of care [facility]* Diagnosis Gestational diabetes mellitus, class A1- Primary Abnormal maternal glucose tolerance, complicating , childbirth, or the puerperium, unspecified as to episode of care Excessive growth affecting management of in third trimester, single or unspecified fetus Obesity in Obesity complicating , childbirth, or the puerperium, unspecified as to episode of care or not applicable 36 weeks gestation of state, incidental [facility]* Diagnosis Gestational diabetes mellitus, class A1- Primary Abnormal maternal glucose tolerance, complicating , childbirth, or the puerperium, unspecified as to episode of care 36 weeks gestation of state, incidental Macrosomia Exceptionally large baby relating to long gestation documented [facility]* Diagnosis Gestational diabetes mellitus, class A1- Primary Abnormal maternal glucose tolerance, complicating , childbirth, or the puerperium, unspecified as to episode of care Obesity in Obesity complicating , childbirth, or the puerperium, unspecified as to episode of care or not applicable [facility] Gestational diabetes mellitus, class A1- Primary Abnormal maternal glucose tolerance, complicating , childbirth, or the puerperium, unspecified as to episode of care Excessive growth affecting management of in third trimester, single or unspecified fetus Obesity in Obesity complicating , childbirth, or the puerperium, unspecified as to episode of care or not applicable 37 weeks gestation of state, incidental [facility] Diagnosis Gestational diabetes mellitus, class A1- Primary Abnormal maternal glucose tolerance, complicating , childbirth, or the puerperium, unspecified as to episode of care Excessive growth affecting management of in third trimester, single or unspecified fetus Obesity in Obesity complicating , childbirth, or the puerperium, unspecified as to episode of care or not applicable 38 weeks gestation of state, incidental [facility]* Diagnosis EMILEE (generalized anxiety disorder) Generalized anxiety disorder [facility]* Diagnosis Onset Date Resolution Status Back pain affecting acute Acute blood loss anemia acut e Lactating mother acute Postoperative pain acute S/P primary low transverse acute [facility] Work Phone: Evaluation note* Diagnosis care and examination immediately after delivery- Primary [facility]* Diagnosis care and examination- Primary Routine follow-up EMILEE (generalized anxiety disorder) Generalized anxiety disorder History of gestational diabetes Personal history of gestational diabetes [facility]* Diagnosis Well adult exam- Primary Routine general medical examination at a health care facility EMILEE (generalized anxiety disorder) Generalized anxiety disorder Hypothyroidism, acquired Unspecified hypothyroidism [facility]* Diagnosis Easy bruising- Primary Other symptoms involving skin and integumentary tissues Fatigue, unspecified type [facility]* Diagnosis Easy bruising- Primary Other symptoms involving skin and integumentary tissues Fatigue, unspecified type [facility]* Diagnosis Skin lesion- Primary Unspecified disorder of skin and subcutaneous tissue [facility]* Diagnosis Jaw pain- Primary Lymphadenopathy, submandibular Enlargement of lymph nodes Yeast infection of the skin Candidiasis of skin and nails [facility]* Diagnosis Viral illness- Primary Unspecified viral infection, in conditions classified elsewhere and of unspecified site [facility]* Diagnosis Encounter for gynecological examination (general) (routine) without abnormal findings- Primary Screening for cervical cancer Screening for malignant neoplasm of the cervix [facility]* Diagnosis Well adult exam- Primary Routine general medical examination at a health care facility Pain in both hands EMILEE (generalized anxiety disorder) Generalized anxiety disorder Class 1 obesity with body mass index (BMI) of 32.0 to 32.9 in adult, unspecified obesity type, unspecified whether serious comorbidity present [facility]* Diagnosis Early stage of - Primary state, incidental [facility]* Diagnosis Easy bruising- Primary Other symptoms involving skin and integumentary tissues [facility]* Diagnosis Respiratory infection- Primary Other diseases of respiratory system, not elsewhere classified [place] eye disease of right eye [facility]* Diagnosis Female infertility- Primary Female infertility of unspecified origin [facility]* Diagnosis URI, acute- Primary Acute upper respiratory infections of unspecified site Fever, unspecified fever cause Acute cough Nausea Nausea alone [facility]* Diagnosis Dysmenorrhea- Primary Excessive bleeding in premenopausal period Premenopausal menorrhagia Female infertility Female infertility of unspecified origin [facility]* Diagnosis Dysmenorrhea- Primary Excessive bleeding in premenopausal period Premenopausal menorrhagia Arcuate uterus [facility]* Diagnosis Female infertility- Primary Female infertility of unspecified origin [facility]* Diagnosis Well adult exam- Primary Routine general medical examination at a health care facility [facility]* Diagnosis Encounter for test, result positive (HCC)- Primary examination or test, positive result [facility]* Diagnosis Early stage of (HCC)- Primary state, incidental [facility]* Diagnosis Encounter for supervision of normal in multigravida, antepartum (HCC)- Primary History of gestational diabetes in prior , currently ([facility]) with other poor obstetric history with uncertain dates in first trimester ([facility]) Screen for STD (sexually transmitted disease) Screening examination for venereal disease 8 weeks gestation of ([facility]) state, incidental BMI 34.0-34.9,adult Body Mass Index 34.0-34.9, adult size inconsistent with dates ([facility]) documented in this encounter [facility] note* Diagnosis Female infertility- Primary Female infertility of unspecified origin documented in this encounter [facility] note* Diagnosis Encounter for supervision of normal in multigravida, antepartum ([facility])- Primary 12 weeks gestation of ([facility]) state, incidental Obesity affecting in first trimester, unspecified obesity type ([facility]) documented in this encounter [facility] note* Diagnosis Encounter for ultrasound to check growth ([facility])- Primary Encounter for routine screening for malformation using ultrasonics 12 weeks gestation of ([facility]) state, incidental documented in this encounter [facility] note* Diagnosis Nausea Nausea alone documented in this encounter [facility] note* Diagnosis Encounter for supervision of normal in multigravida, antepartum ([facility])- Primary Prior macrosomia, antepartum, second trimester ([facility]) 17 weeks gestation of ([facility]) state, incidental * Assessment & Plan Note - Ivy Albarran MD - 04/04/2025 8:22 AM EDT Associated Problem(s): Encounter for supervision of normal in multigravida, antepartum ([facility]) documented in this encounter [facility] note* Diagnosis Encounter for supervision of normal in multigravida, antepartum (HCC)- Primary Prior macrosomia, antepartum, second trimester (HCC) 17 weeks gestation of ([facility]) state, incidental Encounter for anatomic survey ([facility])- Primary Encounter for anatomic survey 18 weeks gestation of ([facility]) state, incidental documented in this encounter [facility] note* Diagnosis Encounter for supervision of normal in multigravida, antepartum (HCC)- Primary Prior macrosomia, antepartum, second trimester (HCC) 17 weeks gestation of (HCC) state, incidental Encounter for supervision of normal in multigravida, antepartum (HCC)- Primary Prior macrosomia, antepartum, second trimester (HCC) Obesity affecting in first trimester, unspecified obesity type (HCC) History of gestational diabetes in prior , currently (HCC) with other poor obstetric history 21 weeks gestation of (HCC) state, incidental * Assessment & Plan Note - Ivy Albarran MD - 05/02/2025 9:01 AM EDT Associated Problem(s): Encounter for supervision of normal in multigravida, antepartum (HCC) * Assessment & Plan Note - Ivy Albarran MD - 05/02/2025 9:01 AM EDT Associated Problem(s): History of gestational diabetes in prior , currently ([facility]) documented in this encounter [facility] note* Diagnosis Encounter for supervision of normal in multigravida, antepartum (HCC)- Primary Prior macrosomia, antepartum, second trimester (HCC) 17 weeks gestation of (HCC) state, incidental Encounter for supervision of normal in multigravida, antepartum (HCC)- Primary Prior macrosomia, antepartum, second trimester (HCC) Obesity affecting in first trimester, unspecified obesity type (HCC) History of gestational diabetes in prior , currently (HCC) with other poor obstetric history 21 weeks gestation of (HCC) state, incidental Encounter for supervision of other normal in second trimester (HCC) Prior macrosomia, antepartum, second trimester (HCC) Obesity affecting in first trimester, unspecified obesity type (HCC) Screening for diabetes mellitus 25 weeks gestation of (HCC) state, incidental * Assessment & Plan Note - Ivy Albarran MD - 05/30/2025 4:34 PM EDT Associated Problem(s): Encounter for supervision of normal in multigravida, antepartum (HCC[facility] Encounter for supervision of normal in multigravida, antepartum (HCC)- Primary Prior macrosomia, antepartum, second trimester (HCC) 17 weeks gestation of (HCC) state, incidental Encounter for supervision of normal in multigravida, antepartum (HCC)- Primary Prior macrosomia, antepartum, second trimester (HCC) Obesity affecting in first trimester, unspecified obesity type (HCC) History of gestational diabetes in prior , currently (HCC) with other poor obstetric history 21 weeks gestation of ([facility]) state, incidental Encounter for supervision of other normal in second trimester (HCC) Prior macrosomia, antepartum, second trimester (HCC) Obesity affecting in first trimester, unspecified obesity type ([facility]) Screening for diabetes mellitus 25 weeks gestation of ([facility]) state, incidental Encounter for supervision of normal in multigravida, antepartum (HCC)- Primary 27 weeks gestation of ([facility]) state, incidental headache in second trimester (HCC) Vitreous floaters of both eyes [facility] Dis[facility] Additional Instructions Plenty of fluids and rest. Increase your diet slowly as tolerated. 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 Zofran as needed for nausea. You may swallow or let dissolve under your tongue. [facility] Work Phone: Reason for referral (narrative)* Diagnostic Procedure Only (Routine) - Pending Review Specialty Diagnoses / Procedures Referred By Silva torres Referred To Contact [facility] Diagnoses Encounter for supervision of normal first in first trimester Procedures OBSTETRIC ULTRASOUND WHI US PREG UTERUS AFTER 1ST TRIMEST GESTATION Ivy Albarran MD [address] [place] [address] [facility] [address] [place] [address] Referral ID Status Reason Start Date Expiration Date Visits Requested Visits Authorized [id number] Pending Review Auto-Generat ed Referral 01/30/2022 01/30/2023 1 1 [facility] for referral (narrative)* Diagnostic Procedure Only (Routine) - Pending Review Specialty Diagnoses / Procedures Referred By Contac t Referred To Contact [facility] Diagnoses 19 weeks gestation of Low-lying placenta Procedures OBSTETRIC ULTRASOUND WHI US PREG UTERUS AFTER 1ST TRIMEST GESTATION Ivy Albarran MD [address] [place] [address] [facility] [address] [place] [id number] Referral ID Status Reason Start Date Expiration Date Visits Requested Visits Authorized [id number] Pending Review Auto-Generat ed Referral 03/28/2022 03/28/2023 1 1 [facility] for referral (narrative)* Diagnostic Procedure Only (Routine) - Open Specialty Diagnoses / Procedures Referred By Contac t Referred To Contact [facility] Diagnoses Excessive growth affecting management of in third trimester, single or unspecified fetus History of COVID-19 Procedures OBSTETRIC ULTRASOUND WHI US PREG UTERUS AFTER 1ST TRIMEST GESTATION Ivy Albarran MD [address] [place] [address] [facility] [address] [place] [address] Referral ID Status Reason Start Date Expiration Date V isits Requested Visits Authorized [id number] Open Auto-Generate d Referral 05/29/2022 05/29/2023 1 1 [facility] for referral (narrative)* Diagnostic Procedure Only (Routine) - Additional Clinical Info Needed Specialty Diagnoses / Procedures Referred By Contac t Referred To Contact [facility] Diagnoses Gestational diabetes mellitus, class A1 Procedures OBSTETRIC ULTRASOUND WHI US PREG UTERUS AFTER 1ST TRIMEST GESTATION Ivy Albarran MD [address] [place] [address] [facility] [address] [place] [address] Referral ID Status Reason Start Date Expiration Date Visits Requested Visits Authorized [id number] Additional Clinical Info Needed Auto-Generat ed Referral 07/23/2022 07/23/2023 1 1 [facility] for referral (narrative)* Outpatient Procedure (Routine) - Pending Review Specialty Diagnoses / Procedures Referred By Contac t Referred To Contact [facility] Diagnoses Gestational diabetes mellitus, class A1 Obesity in Procedures NON-STRESS TEST NON-STRESS TEST Ivy Albarran MD [address] [place] [address] [facility] [address] [place] [address] Referral ID Status Reason Start Date Expiration Date Visits Requested Visits Authorized [id number] Pending Review Auto-Generat ed Referral 07/24/2022 07/24/2023 1 1 [facility] for referral (narrative)* Diagnostic Procedure Only (Routine) - New Request Specialty Diagnoses / Procedures Referred By Contac t Referred To Contact [facility] Diagnoses Dysmenorrhea Excessive bleeding in premenopausal period Procedures PELVIC US WHI US PELVIC NONOBSTETRIC REAL-TIME IMAGE COMPLETE Ivy Albarran MD [address] [place] [address] [facility] [address] [address] Referral ID Status Reason Start Date Expiration Date Visits Requested Visits Authorized [id number] New Request Auto-Generat ed Referral 10/14/2024 10/14/2025 1 1 [facility] for visit Narrative* Diagnostic Procedure Only (Routine) - Closed Specialty Diagnoses / Procedures Referred By Silva torres Referred To Contact [facility] Diagnoses Dysmenorrhea Excessive bleeding in premenopausal period Procedures PELVIC US WHI US PELVIC NONOBSTETRIC REAL-TIME IMAGE COMPLETE Ivy Albarran MD [address] [place] [address] [facility] [address] [facility] [place] [address] Referral ID Status Reason Start Date Expiration Date V isits Requested Visits Authorized [id number] Closed Auto-Generate d Referral 10/15/2024 09/21/2025 1 1 [facility] Concerns Problem Noted Date OB Reminders 12/25/2021 Problem Noted Date OB Reminders 12/25/2021 Problem Noted Date OB Reminders 12/25/2021 Problem Noted Date OB Reminders 12/25/2021 Problem Noted Date OB Reminders 12/25/2021 Problem Noted Date OB Reminders 12/25/2021 Problem Noted Date OB Reminders 12/25/2021 Problem Noted Date OB Reminders 12/25/2021 Problem Noted Date OB Reminders 12/25/2021 Problem Noted Date OB Reminders 12/25/2021 Problem Noted Date OB Reminders 12/25/2021 Problem Noted Date OB Reminders 12/25/2021 Problem Noted Date OB Reminders 12/25/2021 Problem Noted Date OB Reminders 12/25/2021 Problem Noted Date OB Reminders 12/25/2021 Problem Noted Date OB Reminders 12/25/2021 Problem Noted Date OB Reminders 12/25/2021 Problem Noted Date OB Reminders 12/25/2021 Problem Noted Date OB Reminders 12/25/2021 Problem Noted Date OB Reminders 12/25/2021 Problem Noted Date OB Reminders 12/25/2021 Problem Noted Date OB Reminders 12/25/2021 Problem Noted Date OB Reminders 12/25/2021 Problem Noted Date OB Reminders 12/25/2021 Problem Noted Date Diagnosed Date OB Reminders 12/25/2021 Problem Noted Date Diagnosed Date OB Reminders 12/25/2021 Chief Complaint and Reason for Visit Chief Complaint N/V Chief Complaint R/O LABOR PRIMARY C SECTION Reason for Visit Back pain affecting Acute blood loss anemia Lactating mother Postoperative pain S/P primary low transverse Family History No Family History Records Found Relationship Condition Age at Onset Recorded Date/T oziel Unknown Family History?Cancer Unknown 2017 5:38pm Family History?Heart Disease Unknown June 11, 2018 5:38pm Family History?No pe rtinent history Unknown June 11, 2018 5:38pm Relationship Condition Age at Onset Recorded Date/T oziel Unknown Family History?Cancer Unknown 2017 4:38pm Family History?Heart Disease Unknown June 11, 2018 4:38pm Family History?No pe rtinent history Unknown June 11, 2018 4:38pm Advance Directives No Advanced Directives Records Found Advance Directive Response Recorded Date/ Time Living Will No February 04, 2022 3 :49pm 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 No February 04, 2022 3:49pm Advance Directive Response Recorded Date/ Time Living Will No August 14 10:01am 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 No August 14, 2022 10:01am Reason for Referral Specialty Diagnoses / Procedures Referred By Silva torres Referred To Contact Diagnoses Abnormal maternal glucose tolerance, antepartum Procedures CONSULT TO DIABETES EDUCATION OFFICE/OUTPATIENT NEW [facility] 60-74 MINUTES Ivy Alabrran MD [address] [place] [address] Referral ID Status Reason Start Date Expiration Date Visits Requested Visits Authorized [id number] Authorized PCP Requested Referral 06/11/2022 06/11/2023 1 1 Specialty Diagnoses / Procedures Referred By Silva torres Referred To Contact Nutrition Diagnoses Abnormal maternal glucose tolerance, antepartum Procedures CONSULT TO NUTRITION THERAPY OFFICE/OUTPATIENT NEW [facility] MDM 60-74 MINUTES Ivy Albarran MD [address] [place] [address] Referral ID Status Reason Start Date Expiration Date Visits Requested Visits Authorized [id number] Authorized PCP Requested Referral 06/11/2022 06/11/2023 1 1 Summary Purpose Additional Source Comments Source Comments (unrecognize d section and content) In the event this informatio n is protected by the Federal Confidentiality of Alcohol and Drug Abuse Patient Records regulations: The Federal rules restrict any use of the information to criminally investigate or prosecute any alcohol or drug abuse patient.[facility] event this information is protected by the Federal Confidentiality of Alcohol and Drug Abuse Patient Records regulations: The Federal rules restrict any use of the information to criminally investigate or prosecute any alcohol or drug abuse patient.[facility] the event this information is protected by the Federal Confidentiality of Alcohol and Drug Abuse Patient Records regulations: The Federal rules restrict any use of the information to criminally investigate or prosecute any alcohol or drug abuse patient.[facility] the event this information is protected by the Federal Confidentiality of Alcohol and Drug Abuse Patient Records regulations: The Federal rules restrict any use of the information to criminally investigate or prosecute any alcohol or drug abuse patient.[facility] the event this information is protected by the Federal Confidentiality of Alcohol and Drug Abuse Patient Records regulations: The Federal rules restrict any use of the information to criminally investigate or prosecute any alcohol or drug abuse patient.[facility] the event this information is protected by the Federal Confidentiality of Alcohol and Drug Abuse Patient Records regulations: The Federal rules restrict any use of the information to criminally investigate or prosecute any alcohol or drug abuse patient.[facility] the event this information is protected by the Federal Confidentiality of Alcohol and Drug Abuse Patient Records regulations: The Federal rules restrict any use of the information to criminally investigate or prosecute any alcohol or drug abuse patient.[facility] the event this information is protected by the Federal Confidentiality of Alcohol and Drug Abuse Patient Records regulations: The Federal rules restrict any use of the information to criminally investigate or prosecute any alcohol or drug abuse patient.[facility] the event this information is protected by the Federal Confidentiality of Alcohol and Drug Abuse Patient Records regulations: The Federal rules restrict any use of the information to criminally investigate or prosecute any alcohol or drug abuse patient.[facility] the event this information is protected by the Federal Confidentiality of Alcohol and Drug Abuse Patient Records regulations: The Federal rules restrict any use of the information to criminally investigate or prosecute any alcohol or drug abuse patient.[facility] the event this information is protected by the Federal Confidentiality of Alcohol and Drug Abuse Patient Records regulations: The Federal rules restrict any use of the information to criminally investigate or prosecute any alcohol or drug abuse patient.[facility] the event this information is protected by the Federal Confidentiality of Alcohol and Drug Abuse Patient Records regulations: The Federal rules restrict any use of the information to criminally investigate or prosecute any alcohol or drug abuse patient.[facility] the event this information is protected by the Federal Confidentiality of Alcohol and Drug Abuse Patient Records regulations: The Federal rules restrict any use of the information to criminally investigate or prosecute any alcohol or drug abuse patient.[facility] the event this information is protected by the Federal Confidentiality of Alcohol and Drug Abuse Patient Records regulations: The Federal rules restrict any use of the information to criminally investigate or prosecute any alcohol or drug abuse patient.[facility] the event this information is protected by the Federal Confidentiality of Alcohol and Drug Abuse Patient Records regulations: The Federal rules restrict any use of the information to criminally investigate or prosecute any alcohol or drug abuse patient.[facility] the event this information is protected by the Federal Confidentiality of Alcohol and Drug Abuse Patient Records regulations: The Federal rules restrict any use of the information to criminally investigate or prosecute any alcohol or drug abuse patient.[facility] the event this information is protected by the Federal Confidentiality of Alcohol and Drug Abuse Patient Records regulations: The Federal rules restrict any use of the information to criminally investigate or prosecute any alcohol or drug abuse patient.[facility] the event this information is protected by the Federal Confidentiality of Alcohol and Drug Abuse Patient Records regulations: The Federal rules restrict any use of the information to criminally investigate or prosecute any alcohol or drug abuse patient.[facility] Center[facility] the event this information is protected by the Federal Confidentiality of Alcohol and Drug Abuse Patient Records regulations: The Federal rules restrict any use of the information to criminally investigate or prosecute any alcohol or drug abuse patient.[facility] CenterIn the event this information is protected by the Federal Confidentiality of Alcohol and Drug Abuse Patient Records regulations: The Federal rules restrict any use of the information to criminally investigate or prosecute any alcohol or drug abuse patient.[facility]In the event this information is protected by the Federal Confidentiality of Alcohol and Drug Abuse Patient Records regulations: The Federal rules restrict any use of the information to criminally investigate or prosecute any alcohol or drug abuse patient.[facility] CenterIn the event this information is protected by the Federal Confidentiality of Alcohol and Drug Abuse Patient Records regulations: The Federal rules restrict any use of the information to criminally investigate or prosecute any alcohol or drug abuse patient.[facility] Center[facility] the event this information is protected by the Federal Confidentiality of Alcohol and Drug Abuse Patient Records regulations: The Federal rules restrict any use of the information to criminally investigate or prosecute any alcohol or drug abuse patient.[facility] the event this information is protected by the Federal Confidentiality of Alcohol and Drug Abuse Patient Records regulations: The Federal rules restrict any use of the information to criminally investigate or prosecute any alcohol or drug abuse patient.[facility]In the event this information is protected by the Federal Confidentiality of Alcohol and Drug Abuse Patient Records regulations: The Federal rules restrict any use of the information to criminally investigate or prosecute any alcohol or drug abuse patient.[facility]In the event this information is protected by the Federal Confidentiality of Alcohol and Drug Abuse Patient Records regulations: The Federal rules restrict any use of the information to criminally investigate or prosecute any alcohol or drug abuse patient.[facility]In the event this information is protected by the Federal Confidentiality of Alcohol and Drug Abuse Patient Records regulations: The Federal rules restrict any use of the information to criminally investigate or prosecute any alcohol or drug abuse patient.[facility]In the event this information is protected by the Federal Confidentiality of Alcohol and Drug Abuse Patient Records regulations: The Federal rules restrict any use of the information to criminally investigate or prosecute any alcohol or drug abuse patient.[facility] CenterIn the event this information is protected by the Federal Confidentiality of Alcohol and Drug Abuse Patient Records regulations: The Federal rules restrict any use of the information to criminally investigate or prosecute any alcohol or drug abuse patient.[facility]In the event this information is protected by the Federal Confidentiality of Alcohol and Drug Abuse Patient Records regulations: The Federal rules restrict any use of the information to criminally investigate or prosecute any alcohol or drug abuse patient.[facility] CenterIn the event this information is protected by the Federal Confidentiality of Alcohol and Drug Abuse Patient Records regulations: The Federal rules restrict any use of the information to criminally investigate or prosecute any alcohol or drug abuse patient.[facility]In the event this information is protected by the Federal Confidentiality of Alcohol and Drug Abuse Patient Records regulations: The Federal rules restrict any use of the information to criminally investigate or prosecute any alcohol or drug abuse patient.[facility]In the event this information is protected by the Federal Confidentiality of Alcohol and Drug Abuse Patient Records regulations: The Federal rules restrict any use of the information to criminally investigate or prosecute any alcohol or drug abuse patient.[facility]In the event this information is protected by the Federal Confidentiality of Alcohol and Drug Abuse Patient Records regulations: The Federal rules restrict any use of the information to criminally investigate or prosecute any alcohol or drug abuse patient.[facility] CenterIn the event this information is protected by the Federal Confidentiality of Alcohol and Drug Abuse Patient Records regulations: The Federal rules restrict any use of the information to criminally investigate or prosecute any alcohol or drug abuse patient.[facility]In the event this information is protected by the Federal Confidentiality of Alcohol and Drug Abuse Patient Records regulations: The Federal rules restrict any use of the information to criminally investigate or prosecute any alcohol or drug abuse patient.[facility]In the event this information is protected by the Federal Confidentiality of Alcohol and Drug Abuse Patient Records regulations: The Federal rules restrict any use of the information to criminally investigate or prosecute any alcohol or drug abuse patient.[facility] CenterIn the event this information is protected by the Federal Confidentiality of Alcohol and Drug Abuse Patient Records regulations: The Federal rules restrict any use of the information to criminally investigate or prosecute any alcohol or drug abuse patient.[facility] CenterIn the event this information is protected by the Federal Confidentiality of Alcohol and Drug Abuse Patient Records regulations: The Federal rules restrict any use of the information to criminally investigate or prosecute any alcohol or drug abuse patient.[facility] CenterIn the event this information is protected by the Federal Confidentiality of Alcohol and Drug Abuse Patient Records regulations: The Federal rules restrict any use of the information to criminally investigate or prosecute any alcohol or drug abuse patient.[facility] CenterIn the event this information is protected by the Federal Confidentiality of Alcohol and Drug Abuse Patient Records regulations: The Federal rules restrict any use of the information to criminally investigate or prosecute any alcohol or drug abuse patient.[facility] CenterIn the event this information is protected by the Federal Confidentiality of Alcohol and Drug Abuse Patient Records regulations: The Federal rules restrict any use of the information to criminally investigate or prosecute any alcohol or drug abuse patient.[facility] the event this information is protected by the Federal Confidentiality of Alcohol and Drug Abuse Patient Records regulations: The Federal rules restrict any use of the information to criminally investigate or prosecute any alcohol or drug abuse patient.[facility] CenterIn the event this information is protected by the Federal Confidentiality of Alcohol and Drug Abuse Patient Records regulations: The Federal rules restrict any use of the information to criminally investigate or prosecute any alcohol or drug abuse patient.[facility] CenterIn the event this information is protected by the Federal Confidentiality of Alcohol and Drug Abuse Patient Records regulations: The Federal rules restrict any use of the information to criminally investigate or prosecute any alcohol or drug abuse patient.[facility] CenterIn the event this information is protected by the Federal Confidentiality of Alcohol and Drug Abuse Patient Records regulations: The Federal rules restrict any use of the information to criminally investigate or prosecute any alcohol or drug abuse patient.[facility] CenterIn the event this information is protected by the Federal Confidentiality of Alcohol and Drug Abuse Patient Records regulations: The Federal rules restrict any use of the information to criminally investigate or prosecute any alcohol or drug abuse patient.[facility] CenterIn the event this information is protected by the Federal Confidentiality of Alcohol and Drug Abuse Patient Records regulations: The Federal rules restrict any use of the information to criminally investigate or prosecute any alcohol or drug abuse patient.[facility] CenterIn the event this information is protected by the Federal Confidentiality of Alcohol and Drug Abuse Patient Records regulations: The Federal rules restrict any use of the information to criminally investigate or prosecute any alcohol or drug abuse patient.[facility] CenterIn the event this information is protected by the Federal Confidentiality of Alcohol and Drug Abuse Patient Records regulations: The Federal rules restrict any use of the information to criminally investigate or prosecute any alcohol or drug abuse patient.[facility] CenterIn the event this information is protected by the Federal Confidentiality of Alcohol and Drug Abuse Patient Records regulations: The Federal rules restrict any use of the information to criminally investigate or prosecute any alcohol or drug abuse patient.[facility] CenterIn the event this information is protected by the Federal Confidentiality of Alcohol and Drug Abuse Patient Records regulations: The Federal rules restrict any use of the information to criminally investigate or prosecute any alcohol or drug abuse patient.[facility] CenterIn the event this information is protected by the Federal Confidentiality of Alcohol and Drug Abuse Patient Records regulations: The Federal rules restrict any use of the information to criminally investigate or prosecute any alcohol or drug abuse patient.[facility] CenterIn the event this information is protected by the Federal Confidentiality of Alcohol and Drug Abuse Patient Records regulations: The Federal rules restrict any use of the information to criminally investigate or prosecute any alcohol or drug abuse patient.[facility] CenterIn the event this information is protected by the Federal Confidentiality of Alcohol and Drug Abuse Patient Records regulations: The Federal rules restrict any use of the information to criminally investigate or prosecute any alcohol or drug abuse patient.[facility] CenterIn the event this information is protected by the Federal Confidentiality of Alcohol and Drug Abuse Patient Records regulations: The Federal rules restrict any use of the information to criminally investigate or prosecute any alcohol or drug abuse patient.[facility] CenterIn the event this information is protected by the Federal Confidentiality of Alcohol and Drug Abuse Patient Records regulations: The Federal rules restrict any use of the information to criminally investigate or prosecute any alcohol or drug abuse patient.[facility] CenterIn the event this information is protected by the Federal Confidentiality of Alcohol and Drug Abuse Patient Records regulations: The Federal rules restrict any use of the information to criminally investigate or prosecute any alcohol or drug abuse patient.[facility] CenterIn the event this information is protected by the Federal Confidentiality of Alcohol and Drug Abuse Patient Records regulations: The Federal rules restrict any use of the information to criminally investigate or prosecute any alcohol or drug abuse patient.[facility] CenterIn the event this information is protected by the Federal Confidentiality of Alcohol and Drug Abuse Patient Records regulations: The Federal rules restrict any use of the information to criminally investigate or prosecute any alcohol or drug abuse patient.[facility] CenterIn the event this information is protected by the Federal Confidentiality of Alcohol and Drug Abuse Patient Records regulations: The Federal rules restrict any use of the information to criminally investigate or prosecute any alcohol or drug abuse patient.[facility] CenterIn the event this information is protected by the Federal Confidentiality of Alcohol and Drug Abuse Patient Records regulations: The Federal rules restrict any use of the information to criminally investigate or prosecute any alcohol or drug abuse patient.[facility] CenterIn the event this information is protected by the Federal Confidentiality of Alcohol and Drug Abuse Patient Records regulations: The Federal rules restrict any use of the information to criminally investigate or prosecute any alcohol or drug abuse patient.[facility] CenterIn the event this information is protected by the Federal Confidentiality of Alcohol and Drug Abuse Patient Records regulations: The Federal rules restrict any use of the information to criminally investigate or prosecute any alcohol or drug abuse patient.[facility] CenterIn the event this information is protected by the Federal Confidentiality of Alcohol and Drug Abuse Patient Records regulations: The Federal rules restrict any use of the information to criminally investigate or prosecute any alcohol or drug abuse patient.[facility] CenterIn the event this information is protected by the Federal Confidentiality of Alcohol and Drug Abuse Patient Records regulations: The Federal rules restrict any use of the information to criminally investigate or prosecute any alcohol or drug abuse patient.[facility] CenterIn the event this information is protected by the Federal Confidentiality of Alcohol and Drug Abuse Patient Records regulations: The Federal rules restrict any use of the information to criminally investigate or prosecute any alcohol or drug abuse patient.[facility] CenterIn the event this information is protected by the Federal Confidentiality of Alcohol and Drug Abuse Patient Records regulations: The Federal rules restrict any use of the information to criminally investigate or prosecute any alcohol or drug abuse patient.[facility] CenterIn the event this information is protected by the Federal Confidentiality of Alcohol and Drug Abuse Patient Records regulations: The Federal rules restrict any use of the information to criminally investigate or prosecute any alcohol or drug abuse patient.[facility] CenterIn the event this information is protected by the Federal Confidentiality of Alcohol and Drug Abuse Patient Records regulations: The Federal rules restrict any use of the information to criminally investigate or prosecute any alcohol or drug abuse patient.[facility] CenterIn the event this information is protected by the Federal Confidentiality of Alcohol and Drug Abuse Patient Records regulations: The Federal rules restrict any use of the information to criminally investigate or prosecute any alcohol or drug abuse patient.[facility] CenterIn the event this information is protected by the Federal Confidentiality of Alcohol and Drug Abuse Patient Records regulations: The Federal rules restrict any use of the information to criminally investigate or prosecute any alcohol or drug abuse patient.[facility] CenterIn the event this information is protected by the Federal Confidentiality of Alcohol and Drug Abuse Patient Records regulations: The Federal rules restrict any use of the information to criminally investigate or prosecute any alcohol or drug abuse patient.[facility] CenterIn the event this information is protected by the Federal Confidentiality of Alcohol and Drug Abuse Patient Records regulations: The Federal rules restrict any use of the information to criminally investigate or prosecute any alcohol or drug abuse patient.[facility] CenterIn the event this information is protected by the Federal Confidentiality of Alcohol and Drug Abuse Patient Records regulations: The Federal rules restrict any use of the information to criminally investigate or prosecute any alcohol or drug abuse patient.[facility] CenterIn the event this information is protected by the Federal Confidentiality of Alcohol and Drug Abuse Patient Records regulations: The Federal rules restrict any use of the information to criminally investigate or prosecute any alcohol or drug abuse patient.[facility] CenterIn the event this information is protected by the Federal Confidentiality of Alcohol and Drug Abuse Patient Records regulations: The Federal rules restrict any use of the information to criminally investigate or prosecute any alcohol or drug abuse patient.[facility] CenterIn the event this information is protected by the Federal Confidentiality of Alcohol and Drug Abuse Patient Records regulations: The Federal rules restrict any use of the information to criminally investigate or prosecute any alcohol or drug abuse patient.[facility] CenterIn the event this information is protected by the Federal Confidentiality of Alcohol and Drug Abuse Patient Records regulations: The Federal rules restrict any use of the information to criminally investigate or prosecute any alcohol or drug abuse patient.[facility] CenterIn the event this information is protected by the Federal Confidentiality of Alcohol and Drug Abuse Patient Records regulations: The Federal rules restrict any use of the information to criminally investigate or prosecute any alcohol or drug abuse patient.[facility] CenterIn the event this information is protected by the Federal Confidentiality of Alcohol and Drug Abuse Patient Records regulations: The Federal rules restrict any use of the information to criminally investigate or prosecute any alcohol or drug abuse patient.[facility] CenterIn the event this information is protected by the Federal Confidentiality of Alcohol and Drug Abuse Patient Records regulations: The Federal rules restrict any use of the information to criminally investigate or prosecute any alcohol or drug abuse patient.[facility] CenterIn the event this information is protected by the Federal Confidentiality of Alcohol and Drug Abuse Patient Records regulations: The Federal rules restrict any use of the information to criminally investigate or prosecute any alcohol or drug abuse patient.[facility] CenterIn the event this information is protected by the Federal Confidentiality of Alcohol and Drug Abuse Patient Records regulations: The Federal rules restrict any use of the information to criminally investigate or prosecute any alcohol or drug abuse patient.[facility] Reason for Visit (unrecogniz ed section and content) Reason Comments Patient Question Reason Comments Results Reason Comments AREA RELIEF PILOT Ultrasound Reason Onset Date Comments Care 01/30/2022 Reason Comments Question (OB Question) Reason Onset Date Comments Care 02/27/2022 Reason Comments Anxiety Reason Onset Date Comments Care 03/28/2022 Reason Comments US Specialty Diagnoses / Procedures Referred By Contac t Referred To Contact [facility] Diagnoses Encounter for supervision of normal first in first trimester Procedures OBSTETRIC ULTRASOUND WHI US PREG UTERUS AFTER 1ST TRIMEST GESTATION Ivy Albarran MD [address] [place] [address] [address] Referral ID Status Reason Start Date Expiration Date Visits Requested Visits Authorized [id number] Authorized Auto-Generat ed Referral 09/22/2021 09/21/2022 20 20 Reason Comments Breast Pump Reason Onset Date Comments Care 05/29/2022 Reason Comments Results Specialty Diagnoses / Procedures Referred By Contac t Referred To Contact Diagnoses Abnormal maternal glucose tolerance, antepartum Procedures CONSULT TO DIABETES EDUCATION OFFICE/OUTPATIENT NEW HIGH MDM 60-74 MINUTES Ivy Albarran MD [address] [place] [address] Referral ID Status Reason Start Date Expiration Date V isits Requested Visits Authorized [id number] Closed PCP Requested Referral 06/11/2022 06/11/2023 1 1 Reason Onset Date Comments Care 06/14/2022 Immunizations 06/14/2022 Flu vaccination Reason Onset Date Comments Care 07/10/2022 Reason Comments Critical Results Reason Comments Orders Reason Onset Date Comments Care 07/24/2022 Specialty Diagnoses / Procedures Referred By Contac t Referred To Contact [facility] Diagnoses Gestational diabetes mellitus, class A1 Procedures OBSTETRIC ULTRASOUND WHI US PREG UTERUS AFTER 1ST TRIMEST GESTATION Ivy Albarran MD [address] [place] [address] [address] Referral ID Status Reason Start Date Expiration Date V isits Requested Visits Authorized [id number] Closed Auto-Generate d Referral 07/23/2022 07/23/2023 1 1 Reason Onset Date Comments Care 07/31/2022 Reason Onset Date Comments Care 08/07/2022 Reason Comments Refill Request Reason Comments Ob Delivery Note Reason Comments Early Incision check Reason Comments Yearly Exam Reason Comments Patient Question Mychart Reason Comments Orders Reason Onset Date Comments Refill Request 04/02/2023 Reason Comments Derm Problem red, swollen bump mi d back x 1 month Reason Comments jaw pain Left side x 9 months Reason Comments Fever Body aches x 2 days Reason Comments Fever Reason Comments +UPT Reason Comments Decreasing HCG Reason Comments Lab Orders Reason Onset Date Comments Refill Request 07/08/2024 Reason Comments Sore Throat Cough, congestion, R eye redness and soreness x1 week Reason Comments Fever Bodyaches, chills, f ever Reason Comments Telemedicine Reason Comments + test Reason Comments Telemedicine Reason Comments Initial OB Visit Reason Onset Date Comments Care 02/28/2025 Specialty Diagnoses / Procedures Referred By Contac t Referred To Contact [facility] Diagnoses with uncertain dates in first trimester (HCC) Procedures OBSTETRIC ULTRASOUND WHI US PREG UTERUS AFTER 1ST TRIMEST GESTATION Rowena Hawthorne, BOTTLE CAPPING MACHINE OPERATOR.CONTRACTS MANAGER [address] [place] [address] Phone: tel: fax: [facility] [address] [place] [address] Referral ID Status Reason Start Date Expiration Date Visits Requested Visits Authorized [id number] Authorized Auto-Generat ed Referral 02/16/2025 09/21/2025 3 3 Reason Onset Date Comments Refill Request 03/18/2025 Reason Onset Date Comments Care 04/04/2025 Reason Onset Date Comments Care 05/02/2025 Reason Onset Date Comments Care 05/30/2025 Reason Onset Date Comments Care 06/07/2025 Care Teams (unrecognized sec tion and content) Insurance Administrator Relationship Specialty Start Date End Date Kaden Meyer DO [address] [place] [address] PCP - General Family Practice 06/29/18 Insurance Administrator Relationship Specialty Start Date End Date Kaden Meyer DO [address] [place] [address] PCP - General Family Practice 06/29/18 Insurance Administrator Relationship Specialty Start Date End Date Kaden Meyer, DO [address] [place] [address] PCP - General Family Practice 06/29/18 Insurance Administrator Relationship Specialty Start Date End Date Kaden Meyer, DO [address] [place] [address] PCP - General Family Practice 06/29/18 Insurance Administrator Relationship Specialty Start Date End Date Kaden Meyer, DO [address] [place] [address] PCP - General Family Practice 06/29/18 Insurance Administrator Relationship Specialty Start Date End Date Kaden Meyer, DO [address] [facility] [place] [address] PCP - General Family Practice 06/29/18 Insurance Administrator Relationship Specialty Start Date End Date Kaden Meyer, DO [address] [place] [address] PCP - General Family Practice 06/29/18 Insurance Administrator Relationship Specialty Start Date End Date Kaden Meyer, DO [address] [place] [address] PCP - General Family Practice 06/29/18 Insurance Administrator Relationship Specialty Start Date End Date Kaden Meyer, DO [address] [place] [address] PCP - General Family Practice 06/29/18 Insurance Administrator Relationship Specialty Start Date End Date Kaden Meyer, DO [address] [place] [address] PCP - General Family Practice 06/29/18 Insurance Administrator Relationship Specialty Start Date End Date Kaden Meyer, DO [address] [place] [address] PCP - General Family Medicine 06/29/18 Insurance Administrator Relationship Specialty Start Date End Date Kaden Meyer, DO [address] [place] [address] PCP - General Family Medicine 06/29/18 Insurance Administrator Relationship Specialty Start Date End Date Kaden Meyer, DO [address] [place] [address] PCP - General Family Medicine 06/29/18 Insurance Administrator Relationship Specialty Start Date End Date Kaden Meyer, DO [address] [place] [address] PCP - General Family Medicine 06/29/18 Insurance Administrator Relationship Specialty Start Date End Date Kaden Meyer, DO [address] [place] [address] PCP - General Family Medicine 06/29/18 Insurance Administrator Relationship Specialty Start Date End Date Kaden Meyer, DO [address] [place] [address] PCP - General Family Medicine 06/29/18 Insurance Administrator Relationship Specialty Start Date End Date Kaden Meyer, DO [address] [place] [address] PCP - General Family Medicine 06/29/18 Insurance Administrator Relationship Specialty Start Date End Date Kaden Meyer, DO [address] [place] [address] PCP - General Family Medicine 06/29/18 Insurance Administrator Relationship Specialty Start Date End Date Kaden Meyer, DO [address] [place] [address] PCP - General Family Medicine 06/29/18 Insurance Administrator Relationship Specialty Start Date End Date Kaden Meyer, DO [address] [place] [address] PCP - General Family Medicine 06/29/18 Insurance Administrator Relationship Specialty Start Date End Date Kaden Meyer, DO [address] [place] [address] PCP - General Family Medicine 06/29/18 Insurance Administrator Relationship Specialty Start Date End Date Kaden Meyer, DO [address] [place] [address] PCP - General Family Medicine 06/29/18 Insurance Administrator Relationship Specialty Start Date End Date Kaden Meyer, DO [address] [place] [address] PCP - General Family Medicine 06/29/18 Insurance Administrator Relationship Specialty Start Date End Date Kaden Meyer, DO [address] [place] [address] PCP - General Family Medicine 06/29/18 Insurance Administrator Relationship Specialty Start Date End Date Kaden Meyer, DO [address] [place] [address] PCP - General Family Medicine 06/29/18 Insurance Administrator Relationship Specialty Start Date End Date Kaden Meyer DO [address] [place] [address] PCP - General Family Medicine 06/29/18 Insurance Administrator Relationship Specialty Start Date End Date Kaden Meyer DO [address] [place] [address] PCP - General Family Medicine 06/29/18 Insurance Administrator Relationship Specialty Start Date End Date Kaden Meyer DO [address] [place] [address] PCP - General Family Medicine 06/29/18 Insurance Administrator Relationship Specialty Start Date End Date Kaden Meyer DO [address] [facility] [place] [address] PCP - General Family Medicine 06/29/18 Insurance Administrator Relationship Specialty Start Date End Date Kaden Meyer DO [address] [facility] [place] [address] PCP - General Family Medicine 06/29/18 Insurance Administrator Relationship Specialty Start Date End Date Kaden Meyer DO [address] [place] [address] PCP - General Family Medicine 06/29/18 Insurance Administrator Relationship Specialty Start Date End Date Kaden Meyer DO [address] [facility] [place] [address] PCP - General Family Medicine 06/29/18 Insurance Administrator Relationship Specialty Start Date End Date Kaden Meyer DO [address] [facility] [place] [address] PCP - General Family Medicine 06/29/18 Insurance Administrator Relationship Specialty Start Date End Date Kaden Meyer DO [address] [facility] [place] [address] PCP - General Family Medicine 06/29/18 Insurance Administrator Relationship Specialty Start Date End Date Kaden Meyer DO [address] [facility] [place] [address] PCP - General Family Medicine 06/29/18 Insurance Administrator Relationship Specialty Start Date End Date Kaden Meyer DO [address] [facility] [place] [address] PCP - General Family Medicine 06/29/18 Katt Fletcher, BOTTLE CAPPING MACHINE OPERATOR.CONTRACTS MANAGER [address] [facility] [place] [address] Director Of Assessing Family Medicine 08/29/24 Daria Davies, BOTTLE CAPPING MACHINE OPERATOR.CONTRACTS MANAGER [address] [facility] [place] [address] Director Of Assessing Family Medicine 08/29/24 Insurance Administrator Relationship Specialty Start Date End Date Kaden Meyer DO [address] [facility] [place] [address] PCP - General Family Medicine 06/29/18 Katt Fletcher, BOTTLE CAPPING MACHINE OPERATOR.CONTRACTS MANAGER [address] [facility] [place] [address] Director Of Assessing Family Medicine 08/29/24 Daria Davies, BOTTLE CAPPING MACHINE OPERATOR.CONTRACTS MANAGER [address] [facility] [place] [address] Director Of Assessing Family Medicine 08/29/24 Insurance Administrator Relationship Specialty Start Date End Date Kaden Meyer DO [address] [facility] [place] [address] PCP - General Family Medicine 06/29/18 Katt Fletcher, BOTTLE CAPPING MACHINE OPERATOR.CONTRACTS MANAGER [address] [facility] [place] [address] Director Of Assessing Family Medicine 08/29/24 Daria Davies, BOTTLE CAPPING MACHINE OPERATOR.CONTRACTS MANAGER [address] [facility] [place] [address] Director Of Assessing Family [facility] 08/29/24 Insurance Administrator Relationship Specialty Start Date End Date Kaden Meyer DO [address] [place] [address] PCP - General Family Medicine 06/29/18 Katt Fletcher, BOTTLE CAPPING MACHINE OPERATOR.CONTRACTS MANAGER [address] [place] [address] Director Of Assessing Family [facility] 08/29/24 SamsonDaria, BOTTLE CAPPING MACHINE OPERATOR.CONTRACTS MANAGER [address] [place] [address] [facility] 08/29/24 Insurance Administrator Relationship Specialty Start Date End Date Kaden Meyer DO [address] [place] [address] PCP - General Family Medicine 06/29/18 Katt Fletcher, BOTTLE CAPPING MACHINE OPERATOR.CONTRACTS MANAGER [address] [place] [address] [facility]/24 SamsonDaria, BOTTLE CAPPING MACHINE OPERATOR.CONTRACTS MANAGER [address] [place] [address] [facility] 08/29/24 Insurance Administrator Relationship Specialty Start Date End Date Kaden Meyer DO [address] [place] [address] PCP - General Family Medicine 06/29/18 Katt Fletcher, BOTTLE CAPPING MACHINE OPERATOR.CONTRACTS MANAGER [address] [place] [address] Director Of Assessing Family [facility] 08/29/24 SamsonDaria, BOTTLE CAPPING MACHINE OPERATOR.CONTRACTS MANAGER [address] [place] [address] [facility] 08/[facility]/24 Insurance Administrator Relationship Specialty Start Date End Date Kaden Meyer DO [address] [place] [address] PCP - General Family Medicine 06/29/18 Katt Fletcher, BOTTLE CAPPING MACHINE OPERATOR.CONTRACTS MANAGER [address] [place] [address] [facility] 08/29/24 SamsonDaria, BOTTLE CAPPING MACHINE OPERATOR.CONTRACTS MANAGER [address] [place] [address] [facility] 08/29/24 Insurance Administrator Relationship Specialty Start Date End Date Kaden Meyer DO [address] [place] [address] PCP - General Family Medicine 06/29/18 SamsonDaria, BOTTLE CAPPING MACHINE OPERATOR.CONTRACTS MANAGER [address] [place] [address] [facility] 08/29/24 Insurance Administrator Relationship Specialty Start Date End Date Kaden Meyer DO [address] [place] [address] PCP - General Family Medicine 06/29/18 SamsonDaria, BOTTLE CAPPING MACHINE OPERATOR.CONTRACTS MANAGER [address] [place] [address] Director Of Assessing Family Medicine 08/29/24 Insurance Administrator Relationship Specialty Start Date End Date Kaden Meyer DO [address] [facility] [place] [address] PCP - General Family Medicine 06/29/18 [facility] ElmerRudyah, BOTTLE CAPPING MACHINE OPERATOR.CONTRACTS MANAGER [address] [facility] [place] [place] [address] Director Of Assessing Family [facility] 08/29/24 Insurance Administrator Relationship Specialty Start Date End Date Kaden Meyer DO [address] [facility] [place] [place] [address] PCP - General Family Medicine 06/29/18 [facility] ElmerRudyah, BOTTLE CAPPING MACHINE OPERATOR.CONTRACTS MANAGER [address] [facility] [place] [address] [facility] 08/[facility]/24 Insurance Administrator Relationship Specialty Start Date End Date Kaden Meyer DO [address] [facility] [place] [place] [address] PCP - General Family Medicine 06/29/18 [facility] ElmerChristinaDaria, BOTTLE CAPPING MACHINE OPERATOR.CONTRACTS MANAGER [address] [facility] [place] [place] [address] [facility] [place] 08/29/24 Insurance Administrator Relationship Specialty Start Date End Date Kaden Meyer DO [address] [facility] [place] [address] PCP - General Family Medicine 06/29/18 [facility] ElmerDaria, BOTTLE CAPPING MACHINE OPERATOR.CONTRACTS MANAGER [address] [facility] [place] [address] [facility] [place] 08/29/24 Insurance Administrator Relationship Specialty Start Date End Date Kaden Meyer DO [address] [place] [address] PCP - General Family Medicine 06/29/18 [facility] ElmerRudyah, BOTTLE CAPPING MACHINE OPERATOR.CONTRACTS MANAGER [address] [place] [address] Director Of Assessing Family Medicine 08/29/24 Insurance Administrator Relationship Specialty Start Date End Date Kaden Meyer DO [address] [place] [address] PCP - General Family Medicine 06/29/18 [facility] ElmerRudyah, BOTTLE CAPPING MACHINE OPERATOR.CONTRACTS MANAGER [address] [place] [address] Director Of Assessing Family Medicine 08/29/24 Joselin June, BOTTLE CAPPING MACHINE OPERATOR.CONTRACTS MANAGER [address] [place] [address] [facility] 03/07/25 Insurance Administrator Relationship Specialty Start Date End Date Kaden Meyer DO [address] [place] [address] PCP - General Family Medicine 06/29/18 [facility] ElmerRudyah, BOTTLE CAPPING MACHINE OPERATOR.CONTRACTS MANAGER [address] [place] [address] Director Of Assessing Family Medicine 08/29/24 Joselin June, BOTTLE CAPPING MACHINE OPERATOR.CONTRACTS MANAGER [address] [place] [address] Director Of Assessing Family Medicine 03/07/25 Insurance Administrator Relationship Specialty Start Date End Date Kaden Meyer DO [address] [facility] [place] [address] PCP - General Family Medicine 06/29/18 Daria Davies, JESI.CONTRACTS MANAGER [address] [place] [address] Director Of Assessing Family Medicine 08/29/24 Joselin June APRN.CONTRACTS MANAGER [address] [place] [address] Director Of Assessing Family Medicine 03/07/25 Insurance Administrator Relationship Specialty Start Date End Date Kaden Meyer DO [address] [place] [address] PCP - General Family Medicine 06/29/18 SamsonDaria, BOTTLE CAPPING MACHINE OPERATOR.CONTRACTS MANAGER [address] [place] [address] Director Of Assessing Family Medicine 08/29/24 Joselin June, BOTTLE CAPPING MACHINE OPERATOR.CONTRACTS MANAGER [address] [place] [address] Director Of Assessing Family [facility] 03/07/25 Insurance Administrator Relationship Specialty Start Date End Date Kaden Meyer DO [address] [place] [address] PCP - General Family Medicine 06/29/18 Daria Davies, BOTTLE CAPPING MACHINE OPERATOR.CONTRACTS MANAGER [address] [facility] [place] [address] Director Of Assessing Family Medicine 08/29/24 Joselin June, BOTTLE CAPPING MACHINE OPERATOR.CONTRACTS MANAGER [address] [place] [address] Director Of Assessing Family [facility] 03/07/25 Insurance Administrator Relationship Specialty Start Date End Date Kaden Meyer DO [address] [facility] [place] [address] PCP - General Family Medicine 06/29/18 SamsonDaria, BOTTLE CAPPING MACHINE OPERATOR.CONTRACTS MANAGER [address] [place] [address] Director Of Assessing Family Medicine 08/29/24 Joselin June, BOTTLE CAPPING MACHINE OPERATOR.CONTRACTS MANAGER [address] [place] [address] [facility] 03/07/25 Insurance Administrator Relationship Specialty Start Date End Date Kaden Meyer DO [address] [place] [address] PCP - General Family Medicine 06/29/18 SamsonDaria, BOTTLE CAPPING MACHINE OPERATOR.CONTRACTS MANAGER [address] [place] [address] [facility] 08/29/24 Joselin June, BOTTLE CAPPING MACHINE OPERATOR.CONTRACTS MANAGER [address] [place] [address] [facility] 03/07/25 Insurance Administrator Relationship Specialty Start Date End Date Kaden Meyer DO [address] [place] [address] PCP - General Family Medicine 06/29/18 Daria Davies, BOTTLE CAPPING MACHINE OPERATOR.CONTRACTS MANAGER [address] [place] [address] [facility] 08/29/24 Joselin June, BOTTLE CAPPING MACHINE OPERATOR.CONTRACTS MANAGER [address] [place] [address] [facility] 03/07/25 Insurance Administrator Relationship Specialty Start Date End Date Kaden Meyer DO [address] [place] [address] PCP - General Family Medicine 06/29/18 [facility], BOTTLE CAPPING MACHINE OPERATOR.CONTRACTS MANAGER [address] [place] [address] [facility] 08/29/24 Joselin June, BOTTLE CAPPING MACHINE OPERATOR.CONTRACTS MANAGER [address] [place] [address] [facility] 03/07/25 Insurance Administrator Relationship Specialty Start Date End Date Kaden Meyer DO [address] [place] [address] PCP - General Family Medicine 06/29/18 [facility] ElmerRudyah, BOTTLE CAPPING MACHINE OPERATOR.CONTRACTS MANAGER [address] [place] [address] [facility] 08/29/24 Joselin June, BOTTLE CAPPING MACHINE OPERATOR.CONTRACTS MANAGER [address] [place] [address] [facility] 03/07/25 Insurance Administrator Relationship Specialty Start Date End Date Kaden Meyer DO [address] [place] [address] PCP - General Family Medicine 06/29/18 Daria Davies, JESI.CONTRACTS MANAGER [address] [place], [place] [address] [facility] 08/29/24 Joselin June APRN.CONTRACTS MANAGER [address] [place] [address] [facility] 03/07/25 Goals (unrecognized section and content) Goals may be documented in a n alternate section INFORMATION SOURCE (unrecogn ized section and content) DATE CREATED AUTHOR 04/10/2025 [facility] DATE CREATED AUTHOR AUTHOR'S ORGANIZ ATION 07/22/2025 [facility] DATE CREATED AUTHOR AUTHOR'S ORGANIZ ATION 08/02/2025 [facility] FOR RECORDS PERTAINING TO PATIENTS WHO ARE OR HAVE BEEN ENROLLED IN A CHEMICAL DEPENDENCY/SUBSTANCEABUSE PROGRAM, SOME INFORMATION MAY BE OMITTED. This clinical summary was aggregated from multiple sources. Caution should be exercised in using it in the provision of clinical care. This summary normalizes information from multiple sources, and as a consequence, information in this document may materially change the coding, format and clinical context of patient data. In addition, data may be omitted in some cases. CLINICAL DECISIONS SHOULD BE BASED ON THE PRIMARY CLINICAL RECORDS. [employer] [facility]. provides no warranty or guarantee of the accuracy or completeness of information in this document.
--- OUTSIDE RECORDS SUMMARY | 2025-09-02 05:22 | XMS RPT_ITS | CCD ---
Author Organization [place] [facility] Care Team Providers Care Armhole Presser Name Role Phone Kaden Meyer DO Primary Care Provider Kaden Meyer DO Primary Care Provider Fletcher RESERVATIONS SALES SUPERVISOR.INSPECTOR CANVAS PRODUCTSKatt Unavailable Samson RESERVATIONS SALES SUPERVISOR.Daria BLACKMON Unavailable Shaylee RESERVATIONS SALES SUPERVISOR.Joselin BLACKMON Unavailable Ivy Jones Attending Unavail able [...] (2 sources) cefTRIAXone Drug Allergy 5 Hives [facility] Work Phone: (20 sources) cefTRIAXone; Translations: [CEFTRIAXONE] Drug Allergy 5 Hives, Shortness of Breath [facility] Work Phone: (3 sources) cefTRIAXone; Translations: [ceftriaxone sodium] Drug Allergy 2 Shortness of breath [facility] Repository Medications Current Medications Medication Drug Class(es) [...] Comment on above: Take 1 capsule by [facility] once daily. ibuprofen 600 mg oral [...] Comment on above: Take 1 tablet by [facility] twice daily with meals for 7 days. [...] 10 7 August 15, 2022 polymyxin b 96109 unt/ml / trimethoprim 1 mg/ml ophthalmic solution (1 source) Dihydrofolate Reductase Inhibitor Antibacterial, Polymyxin-class Antibacterial Start: 08-06-2024 End: 08-13-2024 take 1 drop(s) into the eye(s) every four hours trimethoprim-polym yxin (POLYTRIM) 10,000 unit- 1 mg/mL ophthalmic solution Indications: [place] eye disease of right eye Use 1 Drop in the right eye every 4 hours for 7 days. 10 mL 08/06/2024 08/13/2024 Active Xudjbqaa-Cfa-Tt-Fa (1 source) Start: 02-04-2022 take 1 tablet by mouth once daily Zkollhyr-Dwu-Gw-Fa Active 1 TABLET PO DAILY 2022 11:00pm Dtuoljaa-Jtc-Wk-Fa () 1 mg Tablet (1 source) Start: 02-04-2022 take 1 tablet by mouth once daily Omssdbtm-Pce-Io-Fa () 1 mg Tablet Active 1 TABLET [...] above: Take 1,000 mcg by mo [facility] once daily. Completed/Discontinued Medications Medication Drug Class(es) [...] above: Take 1 capsule by mo [facility] three times daily. azithromycin 250 mg oral [...] of ; Translations: [18 weeks gestation of ([facility])] Onset: 04-11-2025 Episodic Residual codes; unclassified (1 source) 17 weeks gestation of ; Translations: [17 weeks gestation of ([facility])] Onset: 04-04-2025 Episodic Residual codes; unclassified (1 source) 12 weeks gestation of ; Translations: [12 weeks gestation of ([facility])] Onset: 02-28-2025 Episodic Residual codes; unclassified (1 source) 8 weeks gestation of ; Translations: [8 weeks gestation of ([facility])] Onset: 01-31-2025 Episodic Screening and history of mental health and substance abuse codes (20 sources) H/O: anxiety state; Translations: [Personal history of other mental and behavioral disorders] Onset: 12-13-2021 12-13-2021 Episodic Unclassified (1 source) Prior macrosomia, antepartum, second trimester ([facility]) 05-30-2025 Results Test Name Value Interpretation Reference Range Facil tacho Ngo 07-07-2025 CNPN Telephone (OBGYWM) ERWIN BALDWIN ([id number]) 1995 F Date Time Provider Department 07/07/25 [...] [*05/29/2022 01/31/2025 Gestational diabetes mellitus, class A1 ([facility]) [*06/11/2022 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] 10/19/2024 History of gestational diabetes in prior pregna*01/31/2025 Encounter for supervision of normal i*01/31/2025 size inconsistent with dates ([facility]) [O26.8*01/31/2025 04/04/2025 Encounter Status:Closed by TIFFANIE ROQUE on 07/07/25 Normal [facility] CBC W Auto Differential pane l (Bld)on 06-13-2025 Basophils (Bld) [#/Vol] 10*3/uL Normal <0.11 [facility] Comment on above: Order Comment: Speci men Type: BLOOD SPECIMENOrdering Facility: [facility] Address: [address] [place] [address] Performed By: #### 5 7021-8 ####[facility] [id number] [place] [address] [place] Basophils/100 WBC (Bld) 0.2 % Normal [facility] Comment on above: Order Comment: Speci men Type: BLOOD SPECIMENOrdering Facility: [facility] Address: [address] [place] [address] Performed By: #### 5 7021-8 ####[facility] [id number] [place] [address] [place] Differential cell count method Nom (Bld) Auto Normal [facility] Comment on above: Order Comment: Speci men Type: BLOOD SPECIMENOrdering Facility: [facility] Address: [address] [place] [address] Performed By: #### 5 7021-8 ####[facility]ENTERCYNTHIATIMPANOGOS [facility] [id number] [place] [address] [place] Eosinophils (Bld) [#/Vol] 0.10 10*3/uL Normal <0.46 [facility] Comment on above: Order Comment: Speci men Type: BLOOD SPECIMENOrdering Facility: [facility] Address: [address] [place] [address] Performed By: #### 5 7021-8 ####[facility] [id number] [place] [address] [place] Eosinophils/100 WBC (Bld) 0.9 % Normal [facility] Comment on above: Order Comment: Speci men Type: BLOOD SPECIMENOrdering Facility: [facility] Address: [address] [place] [address] Performed By: #### 5 7021-8 ####[facility] [id number] [place] [address] [place] Erythrocyte distribution width (RBC) [Ratio] 13.0 % Normal 11.5-15.0 [facility] Comment on above: Order Comment: Speci men Type: BLOOD SPECIMENOrdering Facility: [facility] Address: [address] [place] [address] Performed By: #### 5 7021-8 ####[facility] [id number] [place] [address] [place] Hematocrit (Bld) [Volume fraction] 36.9 % Normal 36.0-46.0 [facility] Comment on above: Order Comment: Speci men Type: BLOOD SPECIMENOrdering Facility: [facility] Address: [address] [place] [address] Performed By: #### 5 7021-8 ####[facility] CENTERLIA [id number] [place] [address] [place] Hemoglobin (Bld) [Mass/Vol] 13.0 g/dL Normal 11.5-15.5 [facility] Comment on above: Order Comment: Speci men Type: BLOOD SPECIMENOrdering Facility: [facility] Address: [address] [place] [address] Performed By: #### 5 7021-8 ####[facility] CENTERLIA [id number] [place] [address] [place] Immature granulocytes (Bld) [#/Vol] 0.08 10*3/uL Normal <0.10 [facility] Comment on above: Order Comment: Speci men Type: BLOOD SPECIMENOrdering Facility: [facility] Address: [address] [place] [address] Performed By: #### 5 7021-8 ####[facility] [id number] [place] [address] [place] Immature granulocytes/100 WBC (Bld) 0.7 % Normal [facility] Comment on above: Order Comment: Speci men Type: BLOOD SPECIMENOrdering Facility: [facility] Address: [address] [place] [address] Performed By: #### 5 7021-8 ####[facility] [id number] [place] [address] [place] Lymphocytes (Bld) [#/Vol] 1.73 10*3/uL Normal 1.00-4.00 [facility] Comment on above: Order Comment: Speci men Type: BLOOD SPECIMENOrdering Facility: [facility] Address: [address] [place] [address] Performed By: #### 5 7021-8 ####[facility]ENTERNCLIA [id number] [address] [place] Lymphocytes/100 WBC (Bld) 14.8 % Normal [facility] Comment on above: Order Comment: Speci men Type: BLOOD SPECIMENOrdering Facility: [facility] Address: [address] [place] [address] Performed By: #### 5 7021-8 ####[facility] [id number] [place] [address] [place] MCH (RBC) [Entitic mass] 29.3 pg Normal 26.0-34.0 [facility] Comment on above: Order Comment: Speci men Type: BLOOD SPECIMENOrdering Facility: [facility] Address: [address] [place] [address] Performed By: #### 5 7021-8 ####[facility] [id number] [address] [place] MCHC (RBC) [Mass/Vol] 35.2 g/dL Normal 30.5-36.0 [facility] Comment on above: Order Comment: Speci men Type: BLOOD SPECIMENOrdering Facility: [facility] Address: [address] [place] [address] Performed By: #### 5 7021-8 ####[facility] [id number] [place] [address] [place] MCV (RBC) [Entitic vol] 83.1 fL Normal 80.0-100.0 [facility] Comment on above: Order Comment: Speci men Type: BLOOD SPECIMENOrdering Facility: [facility] Address: [address] [place] [address] Performed By: #### 5 7021-8 ####[facility] [id number] [place] [address] [place] Monocytes (Bld) [#/Vol] 0.66 10*3/uL Normal <0.87 [facility] Comment on above: Order Comment: Speci men Type: BLOOD SPECIMENOrdering Facility: [facility] Address: [address] [place] [address] Performed By: #### 5 7021-8 ####[facility] TREMAYNEFAWNA [id number] [place] [address] [place] Monocytes/100 WBC (Bld) 5.7 % Normal [facility] Comment on above: Order Comment: Speci men Type: BLOOD SPECIMENOrdering Facility: [facility] Address: [address] [place] [address] Performed By: #### 5 7021-8 ####[facility]ENTERNCA [id number] [place] [address] [place] Neutrophils (Bld) [#/Vol] 9.06 10*3/uL High 1.45-7.50 [facility] Comment on above: Order Comment: Speci men Type: BLOOD SPECIMENOrdering Facility: [facility] Address: [address] [place] [address] Performed By: #### 5 7021-8 ####[facility] [id number] [place] [address] [place] Neutrophils/100 WBC (Bld) 77.7 % Normal [facility] Comment on above: Order Comment: Speci men Type: BLOOD SPECIMENOrdering Facility: [facility] Address: [address] [place] [address] Performed By: #### 5 7021-8 ####[facility]ENTERNCLIA [id number] [place] [address] [place] Nucleated RBC (Bld) [#/Vol] 10*3/uL Normal <0.01 [facility] Comment on above: Order Comment: Speci men Type: BLOOD SPECIMENOrdering Facility: [facility] Address: [address] [place] [address] Performed By: #### 5 7021-8 ####[facility] FELIA [id number] [place] [address] [place] Nucleated RBC/100 WBC (Bld) [Ratio] 0.0 /100 WBC Normal [facility] Comment on above: Order Comment: Speci men Type: BLOOD SPECIMENOrdering Facility: [facility] Address: [address] [place] [address] Performed By: #### 5 7021-8 ####[facility] TREMAYNEWHITEWOODRUDDYA [id number] [place] [address] [place] Platelet mean volume (Bld) [Entitic vol] 10.6 fL Normal 9.0-12.7 [facility] Comment on above: Order Comment: Speci men Type: BLOOD SPECIMENOrdering Facility: [facility] Address: [address] [place] [address] Performed By: #### 5 7021-8 ####[facility] CENTERCYNTHIAA [id number] [place] [address] [place] Platelets (Bld) [#/Vol] 207 10*3/uL Normal 150-400 [facility] Comment on above: Order Comment: Speci men Type: BLOOD SPECIMENOrdering Facility: [facility] Address: [address] [place] [address] Performed By: #### 5 7021-8 ####[facility] CENTERCYNTHIALIA [id number] [place] [address] [place] RBC (Bld) [#/Vol] 4.44 10*6/uL Normal 3.90-5.20 [facility] Comment on above: Order Comment: Speci men Type: BLOOD SPECIMENOrdering Facility: [facility] Address: [address] [place] [address] Performed By: #### 5 7021-8 ####[facility] CENTERNCLIA [id number] [place] [address] [place] WBC (Bld) [#/Vol] 11.65 10*3/uL High 3.70-11.00 [facility] Comment on above: Order Comment: Speci men Type: BLOOD SPECIMENOrdering Facility: [facility] Address: [address] [place] [address] Performed By: #### 5 7021-8 ####[facility] SONIAJOSSY CASPERST. VINCENT FISHERS HOSPITALLIA [id number] [address] [place] CNPNon 06-13-2025 CNPN Telephone (OBGYWM) ERWIN BALDWIN ([id number]) 1995 F Date Time Provider Department 06/13/25 IVY ALBARRAN OBGYWM During your visit today, we recorded the following information about you: Diane Fraga RN 06/13/2025 4:55 PM Signed Ivy Albarran MD to [facility] Ob-Form Setter [employer] Forms Pool 06/13/25 3:29 PM Result Note Please notify patient she failed GCT and since number above 200 does not need to complete 3 hrs- she is considered Gest DM. See if she needs any more testing supplies- will need to see healthcare educator/nutrition. Bring BS log next visit. Results reviewed. Please Place copy in OB chart GESTATIONAL GLUCOSE SCREEN, 1-HOUR, 50 GRAM, NON-FASTING; COMPLETE BLOOD COUNT AND DIFFERENTIAL; EXTRA TUBE ZO Diane Fraga RN 06/13/2025 4:55 PM Signed Spoke to Pt and informed her of 1hr Glucose results and no need to complete 3 hour test. Ounert message sent to Pt. Gestational DM orders pended. OB growth US scheduled for 06/16/25. Pt states she has glucose monitor, but does not have any supplies. Advised Pt that may be best to have all supplies sent as the strips will need to match monitor. Pt agreeable. Please file orders. Pt will then need to be called to get outreach educator/nutrition appt scheduled. POONAM Fry Deidre, MD 06/14/2025 8:23 AM Signed ordered Hellen Snyder RN 06/14/2025 8:31 AM Signed Please file the pending Endocrinology project product manager order. Will then reach out to patient [...] daily.Disp: 200 eachRfl: 8 OBSTETRIC ULTRASOUND I [[id number]] Order #: [id number]: 1 STANDING CONSULT TO DIABETES EDUCATION DSME [2719756] Order #: [id number]: 2 FUTURE CONSULT TO NUTRITION THERAPY [9020] Order #: [id number]: 4 FUTURE ENDOCRINOLOGY DIETITIAN VISIT (MNT) [1164740] Order #: [id number]: 4 FUTURE Prescriptions as of 06/14/2025 - [...] daily. BLOO (more content not included)... Normal [facility] GESTATIONAL GLUCOSE SCREEN, 1-HOUR, 50 GRAM, NON-FASTINGon 06-13-2025 Glucose [Mass/Vol] 218 mg/dL High 74-134 [facility] Comment on above: Order Comment: Speci men Type: SWAB Ordering Facility: [facility] Address: [address] [place] [address] Result Comment: [facility] Congress of Obstetricians and Gynecologists (Lencho/Jayson) guidelines state a gestational diabetes mellitus positive screen is made, in women not previously diagnosed with overt diabetes, when the 1 hr plasma glucose level is equal to or above 140 mg/dL. The [facility] High Speed Printer Operator and [facility] [place] recommends a 135 mg/dL cutoff. Performed By: #### 3 6902-5, TRVAMP #### [facility] CLIA [id number] [address] [place] [address] [place] Reagin and Treponema pallidu m IgG and IgM [Interp]on 06-13-2025 T. pallidum IgG+IgM IA Ql (S) Non-Reactive Normal Nonreactive [facility] Comment on above: Order Comment: Speci men Type: SWAB [facility]ing Facility: [facility] Address: [address] [place] [address] Performed By: #### 3 6902-5, TRVAMP #### [facility] CLIA [id number] [address] [place] [address] [place] Reagin+T pallidum IgG+IgM Se rPl-Impon 06-13-2025 Reagin and Treponema pallidum IgG and IgM [Interp] Cannot exclude recent Treponemal infection if specimen collected within 7-10 days after appearance of suspect lesions or 2-3 weeks after an exposure. Clinical correlation is required. Normal [facility] Comment on above: Order Comment: Speci men Type: SWAB Ordering [facility]: [facility] Address: [address] [place] [address] Performed By: #### 3 6902-5, SAURABH #### [facility] CLIA [id number] [address] [place] [address] [place] [address] [place] CBC W Auto Differential pane l (Bld)on 06-07-2025 Basophils (Bld) [#/Vol] [facility] Basophils/100 WBC (Bld) 0.2 % [facility] Differential cell count method Nom (Bld) Auto [facility] Eosinophils (Bld) [#/Vol] 0.13 10*3/uL [facility] Eosinophils/100 WBC (Bld) 1.1 % [facility] Erythrocyte distribution width (RBC) [Ratio] 13.0 % 11.5 - 15.0 % [facility] Hematocrit (Bld) [Volume fraction] 35.6 % Low 36.0 - 46.0 % [facility] Hemoglobin (Bld) [Mass/Vol] 12.5 g/dL 11.5 - 15.5 g/dL [facility] Immature granulocytes (Bld) [#/Vol] 0.10 10*3/uL High [facility] Immature granulocytes/100 WBC (Bld) 0.8 % [facility] Interpretation and review of laboratory results Abnormal [facility] Lymphocytes (Bld) [#/Vol] 2.22 10*3/uL [facility] Lymphocytes/100 WBC (Bld) 18.4 % [facility] MCH (RBC) [Entitic mass] 29.5 pg 26.0 - 34.0 pg [facility] MCHC (RBC) [Mass/Vol] 35.1 g/dL 30.5 - 36.0 g/dL [facility] MCV (RBC) [Entitic vol] 84.0 fL 80.0 - 100.0 fL [facility] Monocytes (Bld) [#/Vol] 0.74 10*3/uL [facility] Monocytes/100 WBC (Bld) 6.1 % [facility] Neutrophils (Bld) [#/Vol] 8.86 10*3/uL High [facility] Neutrophils/100 WBC (Bld) 73.4 % [facility] Nucleated RBC (Bld) [#/Vol] NINF [facility] Nucleated RBC/100 WBC (Bld) [Ratio] 0.0 % /100 WBC [facility] Platelet mean volume (Bld) [Entitic vol] 10.4 fL 9.0 - 12.7 fL [facility] Platelets (Bld) [#/Vol] 211 10*3/uL [facility] RBC (Bld) [#/Vol] 4.24 10*6/uL 3.90 - 5.2 0 m/uL [facility] WBC (Bld) [#/Vol] 12.07 10*3/uL High [facility] Basophils (Bld) [#/Vol] 10*3/uL Normal <0.11 [facility] Comment on above: Order Comment: Speci men Type: BLOOD SPECIMENOrdering Facility: [facility] Address: [address] [place] [address] Performed By: #### 5 7021-8 ####[facility] [id number] [place] [address] [place] Basophils/100 WBC (Bld) 0.2 % Normal [facility] Comment on above: Order Comment: Speci men Type: BLOOD SPECIMENOrdering Facility: [facility] Address: [address] [place] [address] Performed By: #### 5 7021-8 ####[facility] [id number] [place] [address] [place] Differential cell count method Nom (Bld) Auto Normal [facility] Comment on above: Order Comment: Speci men Type: BLOOD SPECIMENOrdering Facility: [facility] Address: [address] [place] [address] Performed By: #### 5 7021-8 ####[facility] CENTERLIA [id number] [place] [address] [place] Eosinophils (Bld) [#/Vol] 0.13 10*3/uL Normal <0.46 [facility] Comment on above: Order Comment: Speci men Type: BLOOD SPECIMENOrdering Facility: [facility] Address: [address] [place] [address] Performed By: #### 5 7021-8 ####[facility] SIVANCJORGE [id number] [place] [address] [place] Eosinophils/100 WBC (Bld) 1.1 % Normal [facility] Comment on above: Order Comment: Speci men Type: BLOOD SPECIMENOrdering Facility: [facility] Address: [address] [place] [address] Performed By: #### 5 7021-8 ####[facility] CENTERNCLIDale [id number] [place] [address] [place] Erythrocyte distribution width (RBC) [Ratio] 13.0 % Normal 11.5-15.0 [facility] Comment on above: Order Comment: Speci men Type: BLOOD SPECIMENOrdering Facility: [facility] Address: [address] [place] [address] Performed By: #### 5 7021-8 ####[facility]ENTERNCLIA [id number] [place] [address] [place] Hematocrit (Bld) [Volume fraction] 35.6 % Low 36.0-46.0 [facility] Comment on above: Order Comment: Speci men Type: BLOOD SPECIMENOrdering Facility: [facility] Address: [address] [place] [address] Performed By: #### 5 7021-8 ####[facility]ENTERNCLIA [id number] [place] [address] [place] Hemoglobin (Bld) [Mass/Vol] 12.5 g/dL Normal 11.5-15.5 [facility] Comment on above: Order Comment: Speci men Type: BLOOD SPECIMENOrdering Facility: [facility] Address: [address] [place] [address] Performed By: #### 5 7021-8 ####[facility] MILLWNCLIA [id number] [place] [address] [place] Immature granulocytes (Bld) [#/Vol] 0.10 10*3/uL High <0.10 [facility] Comment on above: Order Comment: Speci men Type: BLOOD SPECIMENOrdering Facility: [facility] Address: [address] [place] [address] Performed By: #### 5 7021-8 ####[facility] CENTERLIA [id number] [place] [address] [place] Immature granulocytes/100 WBC (Bld) 0.8 % Normal [facility] Comment on above: Order Comment: Speci men Type: BLOOD SPECIMENOrdering Facility: [facility] Address: [address] [place] [address] Performed By: #### 5 7021-8 ####[facility] [id number] [place] [address] [place] Lymphocytes (Bld) [#/Vol] 2.22 10*3/uL Normal 1.00-4.00 [facility] Comment on above: Order Comment: Speci men Type: BLOOD SPECIMENOrdering Facility: [facility] Address: [address] [place] [address] Performed By: #### 5 7021-8 ####[facility] CENTERLIA [id number] [place] [address] [place] Lymphocytes/100 WBC (Bld) 18.4 % Normal [facility] Comment on above: Order Comment: Speci men Type: BLOOD SPECIMENOrdering Facility: [facility] Address: [address] [place] [address] Performed By: #### 5 7021-8 ####[facility] CENTERNCLIA [id number] [place] [address] [place] MCH (RBC) [Entitic mass] 29.5 pg Normal 26.0-34.0 [facility] Comment on above: Order Comment: Speci men Type: BLOOD SPECIMENOrdering Facility: [facility] [facility] Address: [address] [place] [address] Performed By: #### 5 7021-8 ####[facility] [id number] [place] [address] [place] MCHC (RBC) [Mass/Vol] 35.1 g/dL Normal 30.5-36.0 [facility] Comment on above: Order Comment: Speci men Type: BLOOD SPECIMENOrdering Facility: [facility] Address: [address] [place] [address] Performed By: #### 5 7021-8 ####[facility] [id number] [place] [address] [place] MCV (RBC) [Entitic vol] 84.0 fL Normal 80.0-100.0 [facility] Comment on above: Order Comment: Speci men Type: BLOOD SPECIMENOrdering Facility: [facility] Address: [address] [place] [address] Performed By: #### 5 7021-8 ####[facility] [id number] [place] [address] [place] Monocytes (Bld) [#/Vol] 0.74 10*3/uL Normal <0.87 [facility] Comment on above: Order Comment: Speci men Type: BLOOD SPECIMENOrdering Facility: [facility] Address: [address] [place] [address] Performed By: #### 5 7021-8 ####[facility] [id number] [address] [place] Monocytes/100 WBC (Bld) 6.1 % Normal [facility] Comment on above: Order Comment: Speci men Type: BLOOD SPECIMENOrdering Facility: [facility] Address: [address] [place] [address] Performed By: #### 5 7021-8 ####[facility] TREMAYNEWHITEWOODCYNTHIALIA [id number] [place] [address] [place] Neutrophils (Bld) [#/Vol] 8.86 10*3/uL High 1.45-7.50 [facility] Comment on above: Order Comment: Speci men Type: BLOOD SPECIMENOrdering Facility: [facility] Address: [address] [place] [address] Performed By: #### 5 7021-8 ####[facility] [id number] [place] [address] [place] Neutrophils/100 WBC (Bld) 73.4 % Normal [facility] Comment on above: Order Comment: Speci men Type: BLOOD SPECIMENOrdering Facility: [facility] Address: [address] [place] [address] Performed By: #### 5 7021-8 ####[facility] [id number] [place] [address] [place] Nucleated RBC (Bld) [#/Vol] 10*3/uL Normal <0.01 [facility] Comment on above: Order Comment: Speci men Type: BLOOD SPECIMENOrdering Facility: [facility] Address: [address] [place] [address] Performed By: #### 5 7021-8 ####[facility]ENTERLIA [id number] [place] [address] [place] Nucleated RBC/100 WBC (Bld) [Ratio] 0.0 /100 WBC Normal [facility] Comment on above: Order Comment: Speci men Type: BLOOD SPECIMENOrdering Facility: [facility] Address: [address] [place] [address] Performed By: #### 5 7021-8 ####[facility]CL[facility] [id number] [place] [address] [place] Platelet mean volume (Bld) [Entitic vol] 10.4 fL Normal 9.0-12.7 [facility] Comment on above: Order Comment: Speci men Type: BLOOD SPECIMENOrdering Facility: [facility] Address: [address] [place] [address] Performed By: #### 5 7021-8 ####[facility]ENTERL[facility] [id number] [place] [address] [place] Platelets (Bld) [#/Vol] 211 10*3/uL Normal 150-400 [facility] Comment on above: Order Comment: Speci men Type: BLOOD SPECIMENOrdering Facility: [facility] Address: [address] [place] [address] Performed By: #### 5 7021-8 ####[facility] [id number] [place] [address] [place] RBC (Bld) [#/Vol] 4.24 10*6/uL Normal 3.90-5.20 [facility] Comment on above: Order Comment: Speci men Type: BLOOD SPECIMENOrdering Facility: [facility] Address: [address] [place] [address] Performed By: #### 5 7021-8 ####[facility]ENTERLIA [id number] [place] [address] [place] WBC (Bld) [#/Vol] 12.07 10*3/uL High 3.70-11.00 [facility] Comment on above: Order Comment: Speci men Type: BLOOD SPECIMENOrdering Facility: [facility] Address: [address] [place] [address] Performed By: #### 5 7021-8 ####[facility]ENTERLIA [id number] [place] [id number] [place] Comprehensive metabolic 2000 panelon 06-07-2025 Albumin [Mass/Vol] 3.5 g/dL Low 3.9-4.9 [facility] Comment on above: Order Comment: Speci men Type: BLOOD SPECIMEN Ordering [facility]: [facility] Address: [address] [place] [address] Performed By: #### 2 532-0, 308-1, #### [facility] CLIA [id number] [address] [place] [address] [place] ALP [Catalytic activity/Vol] 86 U/L Normal 34-123 [facility] Comment on above: Order Comment: Speci men Type: BLOOD SPECIMEN Ordering [facility]: [facility] Address: [address] [place] [address] Performed By: #### 2 532-0, 3083-1, #### [facility] CLIA [id number] [address] [place] [address] [place] ALT [Catalytic activity/Vol] 11 U/L Normal 7-38 [facility] Comment on above: Order Comment: Speci men Type: BLOOD SPECIMEN Ordering [facility]: [facility] Address: [address] [place] [address] Performed By: #### 2 532-0, 308-1, #### [facility] CLIA [id number] [address] [place] [address] [place] Anion gap [Moles/Vol] 12 mmol/L Normal 8-15 [facility] Comment on above: Order Comment: Speci men Type: BLOOD SPECIMEN Ordering Facility: [facility] Address: [address] [place] [address] Performed By: #### 2 532-0, 308-1, 73415-3 #### [facility] CLIA [id number] [address] [place] [address] [place] AST [Catalytic activity/Vol] 12 U/L Low 13-35 [facility] Comment on above: Order Comment: Speci men Type: BLOOD SPECIMEN Ordering [facility]: [facility] Address: [address] [place] [address] Performed By: #### 2 532-0, 1, #### [facility] CLIA [id number] [address] [place] [address] [place] Bilirubin [Mass/Vol] 0.2 mg/dL Normal 0.2-1.3 [facility] Comment on above: Order Comment: Speci men Type: BLOOD SPECIMEN [facility]ing [facility]: [facility] Address: [address] [place] [address] Performed By: #### 2 532-0, 3083-09, #### [facility] CLIA [id number] [address] [place] [address] [place] Calcium [Mass/Vol] 8.9 mg/dL Normal 8.5-10.2 [facility] Comment on above: Order Comment: Speci men Type: BLOOD SPECIMEN [facility]: [facility] Address: [address] [place] [address] Performed By: #### 2 532-0, 3083-09, #### [facility] CLIA [id number] [address] [place] [address] [place] Chloride [Moles/Vol] 101 mmol/L Normal 98-107 [facility] Comment on above: Order Comment: Speci men Type: BLOOD SPECIMEN [facility]ing [facility]: [facility] Address: [address] [place] [address] Performed By: #### 2 532-0, 3083-09, #### [facility] CLIA [id number] [address] [place], [place] [address] [place] CO2 [Moles/Vol] 21 mmol/L Low 22-30 [facility] Comment on above: Order Comment: Speci men Type: BLOOD SPECIMEN Ordering [facility]: [facility] Address: [address] [place] [address] Performed By: #### 2 532-0, 3083-09, #### [facility] CLIA [id number] [address] [place], [place] [address] [place] Creatinine [Mass/Vol] 0.76 mg/dL Normal 0.58-0.96 [facility] Comment on above: Order Comment: Speci men Type: BLOOD SPECIMEN Ordering Facility: [facility] Address: [address] [place] [address] Performed By: #### 2 532-0, 3083-09, #### [facility] CLIA [id number] [address] [place] [address] [place] eGFRcr SerPlBld CKD-EPI 2020 109 mL/min/1.73m??? Normal >=60 [facility] Comment on above: Order Comment: Speci men Type: BLOOD SPECIMEN Ordering Facility: [facility] Address: [address] [place] [address] Result Comment: Anila mated Glomerular Filtration Rate [...] Performed By: #### 2 532-0, 1, #### [facility] CLIA [id number] [address] [place] [address] [place] Glucose [Mass/Vol] 112 mg/dL High 74-99 [facility] Comment on above: Order Comment: Speci men Type: BLOOD SPECIMEN Ordering Facility: [facility] Address: [address] [place] [address] Result Comment: The [place] [employer] (ADA) provides guidance for cutoff [...] Standards of Medical Care in Diabetes 2016, [place] [employer]. Diabetes Care. 2016.39(Suppl 1). Performed By: #### 2 532-0, 3084-1, 85227-8 #### [facility] CLIA [id number] [address] [place] [address] [place] Potassium [Moles/Vol] 3.8 mmol/L Normal 3.7-5.1 [facility] Comment on above: Order Comment: Speci men Type: BLOOD SPECIMEN Ordering Facility: [facility] Address: [address] [place] [address] Performed By: #### 2 532-0, 3084-1, 93335-4 #### [facility] CLIA [id number] [address] [place] [address] [place] Protein [Mass/Vol] 6.2 g/dL Low 6.3-8.0 [facility] Comment on above: Order Comment: Speci men Type: BLOOD SPECIMEN Ordering [facility]: [facility] Address: [address] [place] [address] Performed By: #### 2 532-0, 3084-1, 27920-8 #### [facility] CLIA [id number] [address] [place] [address] [place] Sodium [Moles/Vol] 134 mmol/L Low 136-144 [facility] Comment on above: Order Comment: Speci men Type: BLOOD SPECIMEN Ordering [facility]: [facility] Address: [address] [place], [place] [address] Performed By: #### 2 532-0, 3084-1, 23594-4 #### [facility] CLIA [id number] [address] [place] [address] [place] Urea nitrogen [Mass/Vol] 8 mg/dL Normal 7-21 [facility] Comment on above: Order Comment: Speci men Type: BLOOD SPECIMEN Ordering [facility]: [facility] Address: [address] [place] [address] Performed By: #### 2 532-0, 3084-1, 84228-9 #### [facility] CLIA [id number] [address] [place] [address] [place] LDH SerPl-cCncon 06-07-2025 LDH [Catalytic activity/Vol] 167 U/L Normal 135-214 [facility] Comment on above: Order Comment: Speci men Type: BLOOD SPECIMEN Ordering [facility]: [facility] Address: [address] [place] [address] Performed By: #### 2 532-0, 3083-1, 64936-3 #### [facility] CLIA [id number] [address] [place] [address] [place] Prot/Creat Uron 06-07-2025 Protein/Creatinine (U) [Mass ratio] 0.08 mg/mg Normal <0.15 [facility] Comment on above: Order Comment: Speci men Type: BLOOD SPECIMEN Ordering Facility: [facility] Address: [address] [place] [address] Result Comment: Adul t Proteinuria Categories: <0.15 mg/mg is considered normal to mildly increased 0.15 - 0.50 mg/mg is considered moderately increased >0.50 mg/mg is considered severely increased KDIGO. (2013). KDIGO 2012 Clinical Practice Guideline for the Evaluation and Management of Chronic Kidney Disease. Official Journal of the International Society of Nephrology, 3(1), 1-150. Performed By: #### 2 532-0, 3084-1, 72289-0 #### [facility] CLIA [id number] [address] [place], [place] [address] [place] Protein/Creatinine (U) [Mass ratio]on 06-07-2025 Creatinine (U) [Mass/Vol] 156.0 mg/dL Normal 20.0-300.0 [facility] Comment on above: Order Comment: Speci men Type: BLOOD SPECIMEN Ordering Facility: [facility] Address: [address] [place] [address] Performed By: #### 2 532-0, 3084-1, 98471-2 #### [facility] CLIA [id number] [address] [place] [address] [place] Protein (U) [Mass/Vol] 13 mg/dL Normal 0-20 [facility] Comment on above: Order Comment: Speci men Type: BLOOD SPECIMEN Ordering Facility: [facility] Address: [address] [place] [address] Performed By: #### 2 532-0, 3084-1, 13975-0 #### [facility] CLIA [id number] [address] [place], [place] [address] [place] Urate SerPl-mCncon 5 Urate [Mass/Vol] 5.3 mg/dL Normal 2.5-6.6 [facility] Comment on above: Order Comment: Speci men Type: BLOOD SPECIMEN Ordering Facility: [facility] Address: [address] [place] [address] Performed By: #### 2 532-0, 3084-1, 97568-8 #### [facility] CLIA [id number] [address] [place], [place] [address] [place] Examination level ultrasound [...] by U/S 18 w + 2 d ALELN by U/S: 09/10/2025 Assigned: based on stated [...] 8 oz EFW by: [employer] (HC-AC-FL) Extended Teletypesetter Monitor 7.0 mm CM 3.2 mm 8% Nicolaides [...] normal LVOT view: normal 3-vessel view: normal 4-oqrycb-gkqpstz view: normal Heart / Thorax Situs: situs [...] Read By: Michelle Frausto M.D. MATERNAL MEDICINE [facility] Radiology Study observation (narrative) [facility] CBC W Auto Differential pane l (Bld)on 02-28-2025 Basophils (Bld) [#/Vol] 10*3/uL Normal <0.11 [facility] Comment on above: Order Comment: Speci men Type: BLOOD SPECIMEN [facility]: [facility] Address: [address] [place] [address] Performed By: #### 2 532-0, 3083-09, #### [facility] CLIA [id number] [address] [place] [address] [place] Basophils/100 WBC (Bld) 0.2 % Normal [facility] Comment on above: Order Comment: Speci men Type: BLOOD SPECIMEN Ordering [facility]: [facility] Address: [address] [place] [address] Performed By: #### 2 532-0, 3083-09, #### [facility] CLIA [id number] [address] [place] [address] [place] Differential cell count method Nom (Bld) Auto Normal [facility] Comment on above: Order Comment: Speci men Type: BLOOD SPECIMEN Ordering Facility: [facility] Address: [address] [place] [address] Performed By: #### 2 532-0, 3083-09, #### [facility] CLIA [id number] [address] [place] [address] [place] Eosinophils (Bld) [#/Vol] 0.07 10*3/uL Normal <0.46 [facility] Comment on above: Order Comment: Speci men Type: BLOOD SPECIMEN Ordering Facility: [facility] Address: [address] [place] [address] Performed By: #### 2 532-0, 3083-09, #### [facility] CLIA [id number] [address] [place] [address] [place] Eosinophils/100 WBC (Bld) 0.7 % Normal [facility] Comment on above: Order Comment: Speci men Type: BLOOD SPECIMEN Ordering Facility: [facility] Address: [address] [place] [address] Performed By: #### 2 532-0, 3083-09, #### [facility] CLIA [id number] [address] [place] [address] [place] Erythrocyte distribution width (RBC) [Ratio] 11.9 % Normal 11.5-15.0 [facility] Comment on above: Order Comment: Speci men Type: BLOOD SPECIMEN Ordering Facility: [facility] Address: [address] [place] [address] Performed By: #### 2 532-0, 3084-1, 98441-5 #### [facility] CLIA [id number] [address] [place] [address] [place] Hematocrit (Bld) [Volume fraction] 44.5 % Normal 36.0-46.0 [facility] Comment on above: Order Comment: Speci men Type: BLOOD SPECIMEN Ordering [facility]: [facility] Address: [address] [place] [address] Performed By: #### 2 532-0, 308-1, #### [facility] CLIA [id number] [address] [place] [address] [place] Hemoglobin (Bld) [Mass/Vol] 15.2 g/dL Normal 11.5-15.5 [facility] Comment on above: Order Comment: Speci men Type: BLOOD SPECIMEN Ordering [facility]: [facility] Address: [address] [place] [address] Performed By: #### 2 532-0, 308-1, #### [facility] CLIA [id number] [address] [place] [address] [place] Immature granulocytes (Bld) [#/Vol] 0.03 10*3/uL Normal <0.10 [facility] Comment on above: Order Comment: Speci men Type: BLOOD SPECIMEN Ordering [facility]: [facility] Address: [address] [place] [address] Performed By: #### 2 532-0, 308-1, 44241-3 #### [facility] CLIA [id number] [address] [place] [address] [place] Immature granulocytes/100 WBC (Bld) 0.3 % Normal [facility] Comment on above: Order Comment: Speci men Type: BLOOD SPECIMEN Ordering Facility: [facility] Address: [address] [place] [address] Performed By: #### 2 532-0, 3083-1, #### [facility] CLIA [id number] [address] [place] [address] [place] Lymphocytes (Bld) [#/Vol] 1.95 10*3/uL Normal 1.00-4.00 [facility] Comment on above: Order Comment: Speci men Type: BLOOD SPECIMEN Ordering Facility: [facility] Address: [address] [place] [address] Performed By: #### 2 532-0, 3083-09, #### [facility] CLIA [id number] [address] [place] [address] [place] [facility] Lymphocytes/100 WBC (Bld) 20.2 % Normal [facility] Comment on above: Order Comment: Speci men Type: BLOOD SPECIMEN Ordering Facility: [facility] Address: [address] [place] [address] Performed By: #### 2 532-0, 3083-09, #### [facility] CLIA [id number] [address] [place] [address] [place] MCH (RBC) [Entitic mass] 28.7 pg Normal 26.0-34.0 [facility] Comment on above: Order Comment: Speci men Type: BLOOD SPECIMEN Ordering Facility: [facility] Address: [address] [place] [address] Performed By: #### 2 532-0, 1, #### [facility] CLIA [id number] [address] [place] [address] [place] MCHC (RBC) [Mass/Vol] 34.2 g/dL Normal 30.5-36.0 [facility] Comment on above: Order Comment: Speci men Type: BLOOD SPECIMEN Ordering Facility: [facility] Address: [address] [place] [address] Performed By: #### 2 532-0, 3083-09, #### [facility] CLIA [id number] [address] [place] [address] [place] MCV (RBC) [Entitic vol] 84.0 fL Normal 80.0-100.0 [facility] Comment on above: Order Comment: Speci men Type: BLOOD SPECIMEN Ordering Facility: [facility] Address: [address] [place] [address] Performed By: #### 2 532-0, 3083-09, #### [facility] CLIA [id number] [address] [place] [address] [place] Monocytes (Bld) [#/Vol] 0.51 10*3/uL Normal <0.87 [facility] Comment on above: Order Comment: Speci men Type: BLOOD SPECIMEN Ordering Facility: [facility] Address: [address] [place] [address] Performed By: #### 2 532-0, 3083-09, #### [facility] CLIA [id number] [address] [place] [address] [place] Monocytes/100 WBC (Bld) 5.3 % Normal [facility] Comment on above: Order Comment: Speci men Type: BLOOD SPECIMEN Ordering Facility: [facility] Address: [address] [place] [address] Performed By: #### 2 532-0, 3083-09, #### [facility] CLIA [id number] [address] [place] [address] [place] Neutrophils (Bld) [#/Vol] 7.09 10*3/uL Normal 1.45-7.50 [facility] Comment on above: Order Comment: Speci men Type: BLOOD SPECIMEN Ordering Facility: [facility] Address: [address] [place] [address] Performed By: #### 2 532-0, 3083-09, #### [facility] CLIA [id number] [address] [place] [address] [place] Neutrophils/100 WBC (Bld) 73.3 % Normal [facility] Comment on above: Order Comment: Speci men Type: BLOOD SPECIMEN Ordering Facility: [facility] Address: [address] [place] [address] Performed By: #### 2 532-0, 3083-09, #### [facility] CLIA [id number] [address] [place] [address] [place] Nucleated RBC (Bld) [#/Vol] 10*3/uL Normal <0.01 [facility] Comment on above: Order Comment: Speci men Type: BLOOD SPECIMEN Ordering Facility: [facility] Address: [address] [place] [address] Performed By: #### 2 532-0, 3083-09, #### [facility] CLIA [id number] [address] [place] [address] [place] Nucleated RBC/100 WBC (Bld) [Ratio] 0.0 /100 WBC Normal [facility] Comment on above: Order Comment: Speci men Type: BLOOD SPECIMEN Ordering Facility: [facility] Address: [address] [place] [address] Performed By: #### 2 532-0, 3083-09, #### [facility] CLIA [id number] [address] [place] [address] [place] Platelet mean volume (Bld) [Entitic vol] 10.5 fL Normal 9.0-12.7 [facility] Comment on above: Order Comment: Speci men Type: BLOOD SPECIMEN Ordering Facility: [facility] Address: [address] [place] [address] Performed By: #### 2 532-0, 3084-1, 00390-7 #### [facility] CLIA [id number] [address] [place] [address] [place] Platelets (Bld) [#/Vol] 220 10*3/uL Normal 150-400 [facility] Comment on above: Order Comment: Speci men Type: BLOOD SPECIMEN Ordering Facility: [facility] Address: [address] [place] [address] Performed By: #### 2 532-0, 3084-1, 31746-9 #### [facility] CLIA [id number] [address] [place], [place] [address] [place] RBC (Bld) [#/Vol] 5.30 10*6/uL High 3.90-5.20 [facility] Comment on above: Order Comment: Speci men Type: BLOOD SPECIMEN Ordering Facility: [facility] Address: [address] [place] [address] Performed By: #### 2 532-0, 3084-1, 65891-5 #### [facility] CLIA [id number] [address] [place] [address] [place] WBC (Bld) [#/Vol] 9.67 10*3/uL Normal 3.70-11.00 [facility] Comment on above: Order Comment: Speci men Type: BLOOD SPECIMEN Ordering Facility: [facility] Address: [address] [place] [address] Performed By: #### 2 532-0, 3084-1, 87855-8 #### [facility] CLIA [id number] [address] [place] [address] [place] Comprehensive metabolic 2000 panelon 02-28-2025 Albumin [Mass/Vol] 4.2 g/dL Normal 3.9-4.9 [facility] Comment on above: Order Comment: Speci men Type: BLOOD SPECIMENOrdering Facility: [facility] Address: [address] [place] [address] Performed By: #### 2 4323-8 ####[facility] SONIA MILLTOWNCLIA [id number] [place] [address] [place] ALP [Catalytic activity/Vol] 78 U/L Normal 34-123 [facility] Comment on above: Order Comment: Speci men Type: BLOOD SPECIMENOrdering Facility: [facility] Address: [address] [place] [address] Performed By: #### 2 4323-8 ####[facility] MILLTOWNCLIA [id number] [place] [address] [place] ALT [Catalytic activity/Vol] 8 U/L Normal 7-38 [facility] Comment on above: Order Comment: Speci men Type: BLOOD SPECIMENOrdering Facility: [facility] Address: [address] [place] [address] Performed By: #### 2 4323-8 ####[facility] [id number] [place] [address] [place] Anion gap [Moles/Vol] 15 mmol/L Normal 8-15 [facility] Comment on above: Order Comment: Speci men Type: BLOOD SPECIMENOrdering Facility: [facility] Address: [address] [place] [address] Performed By: #### 2 4323-8 ####[facility] MILLTOWNCLIA [id number] [place] [address] [place] AST [Catalytic activity/Vol] 11 U/L Low 13-35 [facility] Comment on above: Order Comment: Speci men Type: BLOOD SPECIMENOrdering Facility: [facility] Address: [address] [place] [address] Performed By: #### 2 4323-8 ####[facility] SONIA MILLTOWNCLIA [id number] [place] [address] [place] Bilirubin [Mass/Vol] 0.3 mg/dL Normal 0.2-1.3 [facility] Comment on above: Order Comment: Speci men Type: BLOOD SPECIMENOrdering Facility: [facility] Address: [address] [place] [address] Performed By: #### 2 4323-8 ####[facility] MILLTOWNCLIA [id number] [place] [address] [place] Calcium [Mass/Vol] 9.6 mg/dL Normal 8.5-10.2 [facility] Comment on above: Order Comment: Speci men Type: BLOOD SPECIMENOrdering Facility: [facility] Address: [address] [place] [address] Performed By: #### 2 4323-8 ####[facility] MILLWNCLIA [id number] [place] [address] [place] Chloride [Moles/Vol] 102 mmol/L Normal 98-107 [facility] Comment on above: Order Comment: Speci men Type: BLOOD SPECIMENOrdering Facility: [facility] Address: [address] [place] [address] Performed By: #### 2 4323-8 ####[facility] MILLTOWNCLIA [id number] [place] [address] [place] CO2 [Moles/Vol] 19 mmol/L Low 22-30 [facility] Comment on above: Order Comment: Speci men Type: BLOOD SPECIMENOrdering Facility: [facility] Address: [address] [place] [address] Performed By: #### 2 4323-8 ####[facility] MILLTOWNCLIA [id number] [place] [address] [place] Creatinine [Mass/Vol] 0.69 mg/dL Normal 0.58-0.96 [facility] Comment on above: Order Comment: Jasmyne plasencia Type: BLOOD SPECIMENOrdering Facility: [facility] Address: [address] [place] [address] Performed By: #### 2 4323-8 ####[facility] [id number] [place] [address] [place] Creatinine and Glomerular filtration rate.predicted panel (S/P/Bld) 121 mL/min/1.73m??? Normal >=60 [facility] Comment on above: Order Comment: Jasmyne plasencia Type: BLOOD SPECIMENOrdering Facility: [facility] Address: [address] [place] [address] Result Comment: Anila mated Glomerular Filtration Rate [...] actual GFR. Performed By: #### 2 4323-8 ####[facility] [id number] [place] [address] [place] Glucose [Mass/Vol] 94 mg/dL Normal 74-99 [facility] Comment on above: Order Comment: Jasmyne plasencia Type: BLOOD SPECIMENOrdering Facility: [facility] Address: [address] [place] [address] Result Comment: The [place] Diabetes Association (ADA) provides guidance for cutoff [...] Standards of Medical Care in Diabetes 2016, [place] Diabetes Association. Diabetes Care. 2016.39(Suppl 1). Performed By: #### 2 4323-8 ####[facility] SONIA MILLWILLIAMWNCLIA [id number] [place] [address] [place] Potassium [Moles/Vol] 4.1 mmol/L Normal 3.7-5.1 [facility] Comment on above: Order Comment: Speci men Type: BLOOD SPECIMENOrdering Facility: [facility] Address: [address] [place] [address] Performed By: #### 2 4323-8 ####[facility] [id number] [place] [address] [place] Protein [Mass/Vol] 7.2 g/dL Normal 6.3-8.0 [facility] Comment on above: Order Comment: Speci men Type: BLOOD SPECIMENOrdering Facility: [facility] Address: [address] [place] [address] Performed By: #### 2 4323-8 ####[facility] [id number] [place] [address] [place] Sodium [Moles/Vol] 136 mmol/L Normal 136-144 [facility] Comment on above: Order Comment: Speci men Type: BLOOD SPECIMENOrdering Facility: [facility] Address: [address] [place] [address] Performed By: #### 2 4323-8 ####[facility] MILLTOWNCLIA [id number] [place] [address] [place] Urea nitrogen [Mass/Vol] 8 mg/dL Normal 7-21 [facility] Comment on above: Order Comment: Speci men Type: BLOOD SPECIMENOrdering Facility: [facility] Address: [address] [place] [address] Performed By: #### 2 4323-8 ####[facility] MILLWNCLIA [id number] [place] [address] [place] Examination level ultrasound on 02-28-2025 Indication First trimester anatomic survey Maternal obesity, BMI >30 Impression The patient is referred for a first trimester anatomy scan including nuchal translucency measurement as clinically indicated. - Single, live, intrauterine . - [place] rump length measurement is consistent with the [...] view: normal 4-chamber view with color: normal 4-qmmbnt-nkrbhal view: normal Abdominal cord insertion: normal Stomach: [...] Read By: Michelle Frausto M.D. MATERNAL MEDICINE [facility] Radiology Study observation (narrative) [facility] HBV surface Ag Ser Qlon HBV surface Ag Ql (S) Negative Normal Negative [facility] Comment on above: Order Comment: Speci men Type: BLOOD SPECIMENOrdering Facility: [facility] Address: [address] [place] [address] Performed By: #### 7 3752-8, 5195-3, 77330-5 ####[facility] LABCLIA [id number] [place] [address] [place] HCV Ab Ser Qlon 02-28-2025 HCV Ab Ql (S) Negative Normal Negative [facility] Comment on above: Order Comment: Speci men Type: SWAB Ordering Facility: [facility] Address: [address] [place] [address] Result Comment: The result suggests no evidence of infection with Hepatitis C virus. Should recent infection be suspected, repeat testing may be considered 4-6 weeks after this draw. Performed By: #### 3 6902-5, TRVAMP #### [facility] CLIA [id number] [address] [place] [address] [place] HIV 1+2 Ab IA Qlon HIV 1 and 2 Ab IA.rapid Nom (S/P/Bld) Normal [facility] Comment on above: Order Comment: Speci men Type: BLOOD SPECIMENOrdering Facility: [facility] Address: [address] [place] [address] Result Comment: Test not indicated. Performed By: #### 7 3752-8, 5195-3, 46901-0 ####[facility] [id number] [place] [address] [place] HIV 1+2 Ab+HIV1 p24 Ag IA Ql Non-Reactive Normal Nonreactive [facility] Comment on above: Order Comment: Speci men Type: BLOOD SPECIMENOrdering Facility: [facility] Address: [address] [place] [address] Performed By: #### 7 3752-8, 5195-3, 46509-8 ####[facility] [id number] [place] [address] [place] HIV immunoassay testing algorithm interpretation (S/P/Bld) [Interp] Normal [facility] Comment on above: Order Comment: Speci men Type: BLOOD SPECIMENOrdering Facility: [facility] Address: [address] [place] [address] Result Comment: No e vidence of HIV-1 or HIV-2 infection. Should recent infection be suspected, repeat testing may be considered 2-3 weeks after this draw. [place] Rev. Code 3701.243(E): This information has been [...] diagnoses. Performed By: #### 7 3752-8, 5195-3, 03151-6 ####[facility] [id number] [place] [address] [place] HbA1c (Bld)on 02-28-2025 Average glucose Estimated from glycated hemoglobin (Bld) [Mass/Vol] 103 mg/dL Normal [facility] Comment on above: Order Comment: Speci men Type: BLOOD SPECIMEN Ordering Facility: [facility] Address: [address] [place] [address] Result Comment: eAG: (Estimated average glucose) is a calculated value from HgbA1c and is billing customer service representative of the average blood glucose level in the last 2-3 month period. Performed By: #### 2 532-0, 3083-, #### [facility] CLIA [id number] [address] [place] [address] [place] HbA1c (Bld) [Mass fraction] 5.2 % Normal 4.3-5.6 [facility] Comment on above: Order Comment: Speci men Type: BLOOD SPECIMEN Ordering Facility: [facility] Address: [address] [place] [address] Result Comment: Amer ican Diabetes Association guidelines indicate that patients with HgbA1c in the range 5.7-6.4% are at increased risk for development of diabetes, and intervention by lifestyle modification may be beneficial. HgbA1c greater or equal to 6.5% is considered diagnostic of diabetes. Performed By: #### 2 532-0, 3083-09, #### [facility] CLIA [id number] [address] [place] [address] [place] [id number] PLUSon 02-28-2025 Cell-free DNA./Cell-free DNA.total Dosage of chromosome-specific cfDNA (cfDNA) [Molar fraction] 15% Normal [facility] Comment on above: Order Comment: Speci men Type: SWAB Ordering Facility: [facility] Address: [address] [place] [address] Performed By: #### 3 6902-5, TRVAMP #### [facility] CLIA [id number] [address] [place] [address] [place] Chr 13+18+21+X+Y aneuploidy Dosage of chromosome-specific cfDNA Ql (cfDNA) Negative Normal [facility] Comment on above: Order Comment: Speci men Type: SWAB Ordering Facility: [facility] Address: [address] [place] [address] Performed By: #### 3 6902-5, TRVAMP #### [facility] CLIA [id number] [address] [place] [address] [place] Chr 21 trisomy Dosage of chromosome-specific cfDNA Ql (cfDNA) Negative Normal [facility] Comment on above: Order Comment: Speci men Type: SWAB Ordering Facility: [facility] Address: [address] [place] [address] Performed By: #### 3 6902-5, TRVAMP #### [facility] CLIA [id number] [address] [place] [address] [place] Chr X and Y aneuploidy risk Sequencing Ql (cfDNA) [Interp] Not detected Normal [facility] Comment on above: Order Comment: Speci men Type: SWAB Ordering Facility: [facility] Address: [address] [place] [address] Result Comment: Not Detected Not Detected Performed By: #### 3 6902-5, TRVAMP #### [facility] CLIA [id number] [address] [place] [address] [place] Citation Carson (Reference lab test) Comment Normal [facility] Comment on above: Order Comment: Speci men Type: SWAB Ordering Facility: [facility] Address: [address] [place] [address] Result Comment: 1. P sofia GOODMAN, et al. Dede Med. 2012;14(3):296-305. 2. Tawnya LOREDO et al. Prenat Diag. 2013;33(6):591-597. 3. Basil C, et al. Clin Chem. 2015 Apr;61(4):608-616. 4. Ino GOODMAN, et al. Dede Med. 2011;13(11):913-920. 5. ACOG/SMFM Practice Bulletin No. 226, Jun 2020. Performed By: #### 3 6902-5, TRVAMP #### [facility] CLIA [id number] [address] [id number] [address] [place] Gestational age Estimated from conception date [place] Normal [facility] Comment on above: Order Comment: Speci men Type: SWAB Ordering Facility: [facility] Address: [address] [place] [address] Performed By: #### 3 6902-5, TRVAJEFF #### [facility] CLIA [id number] [address] [place] [address] [place] GESTATIONALAGE AGE > OR = 9W Yes Normal [facility] Comment on above: Order Comment: Speci men Type: SWAB Ordering Facility: [facility] Address: [address] [place] [address] Performed By: #### 3 6902-5, TRVAMP #### [facility] CLIA [id number] [address] [place] [address] [place] Laboratory comment Carson (Report) Comment Normal [facility] Comment on above: Order Comment: Speci men Type: SWAB Ordering Facility: [facility] Address: [address] [place] [address] Result Comment: The MaterniT(R) 21 PLUS laboratory-developed [...] Performed By: #### 3 6902-5, SAURABH #### [facility] CLIA [id number] [address] [place] [address] director process improvement name Nom (Provider) Comment Normal [facility] Comment on above: Order Comment: Speci men Type: SWAB Ordering Facility: [facility] Address: [address] [place] [address] Result Comment: This specimen showed an expected representation of chromosome 21, 18 and 13 material. Clinical correlation is suggested. Comment Cedrick Trujillo MD, PhD, Director, [employer] Performed By: #### 3 6902-5, TRLATOSHA #### [facility] CLIA [id number] [address] [place] [address] [place] [address] [place] LIMITATIONS OF THE TEST Comment Normal [facility] Comment on above: Order Comment: Speci men Type: SWAB Ordering Facility: [facility] Address: [address] [place] [address] [place] [address] Result Comment: Eren paul the results of [...] Performed By: #### 3 6902-5, SAURABH #### [facility] CLIA [id number] [address] [place] [address] Monosomy X risk Dosage of chromosome-specific cfDNA Ql (Plasma cell-free+WBC DNA) [Interp] Not detected Normal [facility] Comment on above: Order Comment: Specla men Type: SWAB Ordering Facility: [facility] Address: [address] [place] [address] Performed By: #### 3 6902-5, SAURABH #### [facility] CLIA [id number] [address] [place] [address] NEGATIVE PREDICTIVE VALUE Note Normal [facility] Comment on above: Order Comment: Specla plasencia Type: SWAB Ordering Facility: [facility] Address: [address] [place] [address] Result Comment: The Negative Predictive Value (NPV) for trisomy 21, 18, and 13 is greater than 99%. The NPV for SCA and ESS cannot be calculated as SCA and ESS are only reported when an abnormality is detected. Performed By: #### 3 6902-5, SAURABH #### [facility] CLIA [id number] [address] [place] [address] PERFORMANCE CHARACTERISTICS Note Normal [facility] Comment on above: Order Comment: Jasmyne plasencia Type: SWAB Ordering Facility: [facility] Address: [address] [place] [address] Result Comment: ! Sex ! Accuracy: 99.4% [...] ! ! ! * As reported in [facility] database [email or web address] [https://www.ncbi.nlm.nih.gov/dbvar/studies/nstd37/ ] # Estimated Sensitivity. [...] Performed By: #### 3 6902-5, SAURABH #### [facility] CLIA [id number] [address] [place] [address] [place] POSITIVE PREDICTIVE VALUE N/A Normal [facility] Comment on above: Order Comment: Speci men Type: SWAB Ordering Facility: [facility] Address: [address] [place] [address] Performed By: #### 3 6902-5, SAURABH #### [facility] CLIA [id number] [address] [place] [address] [place] Reference Lab Test Method Comment Normal [facility] Comment on above: Order Comment: Speci men Type: SWAB Ordering Facility: [facility] Address: [address] [place] [address] Result Comment: See Notes Circulating cell-free DNA [...] Performed By: #### 3 6902-5, SAURABH #### [facility] CLIA [id number] [address] [place], [place] [address] [place] Service comment (Unsp spec) [Interp] Comment Normal [facility] Comment on above: Order Comment: Speci men Type: SWAB Ordering Facility: [facility] Address: [address] [place] [address] Result Comment: See Notes [employer] is a subsidiary of [employer], using the brand [employer]. This test was developed and its performance characteristics determined by [employer]. It has not been cleared or approved by the Food and Drug Administration. This laboratory is certified under the Clinical Laboratory Improvement Amendments (CLIA) as qualified to perform high complexity clinical laboratory testing and accredited by the College of [place] [employer] (CAP). If there is future clinical need for adding MaterniT GENOME testing, this specimen will be available until term. [facility] samples will not be retained beyond 60 days. [facility] patients will have to send a new sample for re-sequencing ([facility] Test Code: [id number]). Performed By: #### 3 6902-5, SAURABH #### [facility] CLIA [id number] [address] [place] [address] [place] Sex Dosage of chromosome-specific cfDNA Nom (cfDNA) Comment Normal [facility] Comment on above: Order Comment: Speci men Type: SWAB Ordering Facility: [facility] Address: [address] [place] [address] Result Comment: Cons istent with Male Performed By: #### 3 6902-5, SAURABH #### [facility] CLIA [id number] [address] [place] [address] [place] Test performance information Carson (Unsp spec) Comment Normal [facility] Comment on above: Order Comment: Speci men Type: SWAB Ordering Facility: [facility] Address: [address] [place] [address] Result Comment: The performance characteristics of the MaterniT(R) 21 PLUS laboratory-developed test (LDT) have been determined in a clinical validation study with women at increased risk for chromosomal aneuploidy.[1-4] Performed By: #### 3 6902-5, SAURABH #### [facility] CLIA [id number] [address] [place], [place] [address] [place] Trisomy 13 risk Dosage of chromosome-specific cfDNA Ql (cfDNA) [Interp] Negative Normal [facility] Comment on above: Order Comment: Speci men Type: SWAB Ordering Facility: [facility] Address: [address] [place] [address] Performed By: #### 3 6902-5, TRVAJEFF #### [facility] CLIA [id number] [address] [place] [address] [place] Trisomy 18 risk Dosage of chromosome-specific cfDNA Ql (Plasma cell-free+WBC DNA) [Interp] Negative Normal [facility] Comment on above: Order Comment: Speci men Type: SWAB Ordering Facility: [facility] Address: [address] [place] [address] Performed By: #### 3 6902-5, TENNILLEVAJEFF #### [facility] CLIA [id number] [address] [place] [address] [place] Prot/Creat Uron 02-28-2025 Protein/Creatinine (U) [Mass ratio] 0.07 mg/mg Normal <0.15 [facility] Comment on above: Order Comment: Speci men Type: URINE SPECIMENOrdering Facility: [facility] Address: [address] [place] [address] Result Comment: Adul t Proteinuria Categories: <0.15 mg/mg is considered normal to mildly increased 0.15 - 0.50 mg/mg is considered moderately increased >0.50 mg/mg is considered severely increased KDIGO. (2013). KDIGO 2012 Clinical Practice Guideline for the Evaluation and Management of Chronic Kidney Disease. Official Journal of the International Society of Nephrology, 3(1), 1-150. Performed By: #### 2 890-2 ####[facility] LAB[facility]IA [id number] [place] [address] [place] Protein/Creatinine (U) [Mass ratio]on 02-28-2025 Creatinine (U) [Mass/Vol] 272.1 mg/dL Normal 20.0-300.0 [facility] Comment on above: Order Comment: Speci men Type: URINE SPECIMENOrdering Facility: [facility] Address: [address] [place], [place] [address] Performed By: #### 2 890-2 ####[facility] [id number] [place] [address] [place] Protein (U) [Mass/Vol] 18 mg/dL Normal 0-20 [facility] Comment on above: Order Comment: Speci men Type: URINE SPECIMENOrdering Facility: [facility] Address: [address] [place] [address] Performed By: #### 2 890-2 ####[facility] [id number] [place] [address] [place] RUBELLA IGG ANTIBODYon 02-28 RUBELLA IGG AB, QUAL Positive Normal Positive [facility] Comment on above: Order Comment: Speci men Type: BLOOD SPECIMENOrdering Facility: [facility] Address: [address] [place] [address] Result Comment: The result suggests recent or past exposure to Rubella virus or history of Rubella vaccination. Positive result may also be seen due to presence of passively-transferred antibodies. Please correlate with patient's history. Performed By: #### R UBIGG ####[facility] [id number] [place] [address] [place] Reagin and Treponema pallidu m IgG and IgM [Interp]on 02-28-2025 T. pallidum IgG+IgM IA Ql (S) Non-Reactive Normal Nonreactive [facility] Comment on above: Order Comment: Speci men Type: BLOOD SPECIMENOrdering Facility: [facility] Address: [address] [place] [address] Performed By: #### 7 3752-8, 5195-3, 57760-1 ####[facility] [id number] [place] [address] [place] Reagin+T pallidum IgG+IgM Se rPl-Impon 02-28-2025 Reagin and Treponema pallidum IgG and IgM [Interp] Cannot exclude recent Treponemal infection if specimen collected within 7-10 days after appearance of suspect lesions or 2-3 weeks after an exposure. Clinical correlation is required. Normal [facility] Comment on above: Order Comment: Speci men Type: BLOOD SPECIMENOrdering Facility: [facility] Address: [address] [place] [address] Performed By: #### 7 3752-8, 5195-3, 08670-0 ####[facility]CLIA [id number] [place] [address] [place] TSH SerPl-aCncon 02-28-2025 TSH Qn 0.180 m[IU]/L Low 0.270-4.200 [facility] Comment on above: Order Comment: Specla plasencia Type: BLOOD SPECIMEN Ordering Facility: [facility] Address: [address] [place] [address] Result Comment: If t he patient is , TSH reference range varies by gestational period: First Trimester (weeks 9-12): 0.180-2.990 mIU/L Second Trimester: 0.110-3.980 mIU/L Third Trimester: 0.480-4.710 mIU/L Romeo Sun et al. A Practical Approach for the Verifications and Determination of Site- and Trimester-Specific Reference Intervals for Thyroid Function tests in . Thyroid, 2019:29:3:412-420. Unruly E, et al. 2017 Guidelines of the [place] [employer] for the Diagnosis and Management of Thyroid Disease during and the . Thyroid, 2017:27:3:315-389. Performed By: #### 2 532-0, 3084-1, 70866-7 #### [facility] CLIA [id number] [address] [place] [address] [place] TYPE + SCREEN PRENATALon ABO O Normal [facility] Comment on above: Order Comment: Speci luis angel Type: BLOOD SPECIMEN Ordering Facility: [facility] Address: [address] [place] [address] Performed By: #### 2 532-0, 3084-1, 60679-0 #### [facility] CLIA [id number] [address] [place] [address] [place] Rh Nom (Bld) Positive Normal [facility] Comment on above: Order Comment: Speci men Type: BLOOD SPECIMEN Ordering Facility: [facility] Address: [address] [place] [address] Performed By: #### 2 532-0, 3084-1, 74998-8 #### [facility] CLIA [id number] [address] [place] [address] [place] TYPE AND SCREEN EXPIRATION 03/03/2025 23:59 Normal [facility] Comment on above: Order Comment: Speci men Type: BLOOD SPECIMEN Ordering Facility: [facility] Address: [address] [place] [address] Performed By: #### 2 532-0, 3084-1, 47543-9 #### [facility] CLIA [id number] [address] [place] [address] [place] Bacteria Ur Culton Bacteria identified Cx Nom (U) ORGANISM ID: 1 50,000-<100,000 CFU/ml Normal urogenital jose Normal [facility] Comment on above: Performed By: #### 2 532-0, 3084-1, 55606-4 #### [facility] CLIA [id number] [address] [place] [address] [place] C. trachomatis+N. gonorrhoea e DNA ALVERTO+probe Ql (Unsp spec)on 01-31-2025 C. trachomatis rRNA ALVERTO+probe Ql (Unsp spec) Not detected Normal Not detected [facility] Comment on above: Order Comment: Speci men Type: SWAB Ordering Facility: [facility] Address: [address] [place] [address] Performed By: #### 3 6902-5, TRVAMP #### [facility] CLIA [id number] [address] [place] [address] [place] [facility] N. gonorrhoeae rRNA ALVERTO+probe Ql (Unsp spec) Not detected Normal Not detected [facility] Comment on above: Order Comment: Speci men Type: SWAB Ordering Facility: [facility] Address: [address] [place] [address] Performed By: #### 3 6902-5, TRVAMP #### [facility] CLIA [id number] [address] [place] [address] OF [facility] POC COMPRESSOR BATTERY PELLETS ULTRASOUNDon 02-01-20 25 Indication Confirmation of intrauterine [...] Read By: Rowena Hawthorne CNP MATERNAL MEDICINE [facility] Radiology Study observation (narrative) [facility] T. vaginalis DNA ALVERTO+probe Ql (Unsp spec) Not detected Normal Not detected [facility] Comment on above: Order Comment: Speci men Type: SWAB Ordering Facility: [facility] Address: [address] [place] [address] Performed By: #### 3 6902-5, SAURABH #### [facility] CLIA [id number] [facility] [place] [address] [place] B-HCG SerPl-aCncon 5 HCG.beta subunit Qn 388.1 m[IU]/mL High <5.0 C [facility] Comment on above: Order Comment: Speci men Type: BLOOD SPECIMENOrdering Facility: [facility] Address: [address] [place] [address] Result Comment: CHARLIE TITATIVE HCG NORMAL RANGES Weeks of Gestation (Weeks Since LMP) 3 Weeks (5.8-71.2 mIU/mL) 4 Weeks (9.5-750 mIU/mL) 5 Weeks (217-7138 mIU/mL) 6 Weeks (158-67059 mIU/mL) 7 Weeks (3697-729379 mIU/mL) 8 Weeks (17010-417493 mIU/mL) 9 Weeks (77348-832860 mIU/mL) 10 Weeks (19877-235565 mIU/mL) 12 Weeks (17979-016306 mIU/mL) Referenced to 4th IS of [facility] Performed By: #### 2 1198-7 ####[facility] LABCLIA [id number] [address] [place] B-HCG SerPl-aCncon 5 HCG.beta subunit Qn 122.5 m[IU]/mL High <5.0 C [facility] Comment on above: Order Comment: Speci men Type: BLOOD SPECIMEN Ordering Facility: [facility] Address: [address] [place] [address] Result Comment: CHARLIE TITATIVE HCG NORMAL RANGES Weeks of Gestation (Weeks Since LMP) 3 Weeks (5.8-71.2 mIU/mL) 4 Weeks (9.5-750 mIU/mL) 5 Weeks (217-7138 mIU/mL) 6 Weeks (158-57109 mIU/mL) 7 Weeks (3697-200255 mIU/mL) 8 Weeks (13757-571302 mIU/mL) 9 Weeks (91688-736055 mIU/mL) 10 Weeks (93932-445231 mIU/mL) 12 Weeks (76635-333457 mIU/mL) Referenced to 4th IS of [facility] Performed By: #### 2 532-0, 3084-1, 51384-3 #### [facility] CLIA [id number] [address] [place] [address] [place] HCG QUANTITATIVEon 5 HCG.beta subunit Qn 122.5 m[IU]/mL [facility] Comment on above: QUANTITATIVE HCG NOR MAL RANGES Weeks of Gestation (Weeks Since LMP) 3 Weeks (5.8-71.2 mIU/mL) 4 Weeks (9.5-750 mIU/mL) 5 Weeks (217-7138 mIU/mL) 6 Weeks (158-46919 mIU/mL) 7 Weeks (3697-049386 mIU/mL) 8 Weeks (95779-622053 mIU/mL) 9 Weeks (71298-176692 mIU/mL) 10 Weeks (20610-709246 mIU/mL) 12 Weeks (51163-105911 mIU/mL) Referenced to 4th IS of [facility] HCG.beta subunit Qnon 2024 Interpretation and review of laboratory results Abnormal [facility] HCG QUANTITATIVEon 5 HCG.beta subunit Qn 54.8 m[IU]/mL [facility] Comment on above: QUANTITATIVE HCG NOR MAL RANGES Weeks of Gestation (Weeks Since LMP) 3 Weeks (5.8-71.2 mIU/mL) 4 Weeks (9.5-750 mIU/mL) 5 Weeks (217-7138 mIU/mL) 6 Weeks (158-18215 mIU/mL) 7 Weeks (3697-958823 mIU/mL) 8 Weeks (49424-289559 mIU/mL) 9 Weeks (79575-270410 mIU/mL) 10 Weeks (50532-860463 mIU/mL) 12 Weeks (18356-888984 mIU/mL) Referenced to 4th IS of [facility] HCG.beta subunit Qnon 2024 Interpretation and review of laboratory results Abnormal [facility] B-HCG SerPl-aCncon 5 HCG.beta subunit Qn 54.8 m[IU]/mL High <5.0 Cl [facility] Comment on above: Order Comment: Speci men Type: BLOOD SPECIMENOrdering Facility: [facility] Address: [address] [place] [address] Result Comment: CHARLIE TITATIVE HCG NORMAL RANGES Weeks of Gestation (Weeks Since LMP) 3 Weeks (5.8-71.2 mIU/mL) 4 Weeks (9.5-750 mIU/mL) 5 Weeks (217-7138 mIU/mL) 6 Weeks (158-04788 mIU/mL) 7 Weeks (3697-229993 mIU/mL) 8 Weeks (25387-937677 mIU/mL) 9 Weeks (12938-781738 mIU/mL) 10 Weeks (57478-660717 mIU/mL) 12 Weeks (57576-196229 mIU/mL) Referenced to 4th IS of [facility] Performed By: #### 2 1198-7 ####[facility] LABCLIA [id number] [address] [place] CNPCathy 12-31-2024 CNPN Telephone (ALDA) ERWIN BALDWIN ([id number]) 1995 F Date Time Provider Department 12/31/24 [...] Primary Visit Diagnosis:Encounter for test, result positive ([facility]) [Z32.01] Order(s):HCG QUANTITATIVE [SQHCGQT] Order #: [id number] STANDING Prescriptions as of 01/04/2025 - letrozole [...] Status:Closed by HELLEN SNYDER on 01/04/25 Normal [facility] 25(OH)D3 Delaney 2024 25-hydroxyvitamin D3 [Mass/Vol] 20.7 ng/mL Low 31.0-80.0 [facility] Comment on above: Order Comment: Speci men Type: BLOOD SPECIMEN Ordering Facility: [facility] Address: [facility] [place] [address] Result Comment: Clas sification of 25 [place] Vitamin D status: Deficiency/Insufficiency: < or = 30 ng/ml. Sufficiency/Optimal Levels: 31-80 ng/mL Toxicity: > 100 ng/mL. Test performed by chemiluminescent immunoassay. Performed By: #### 2 532-0, 3083-1, #### [facility] CLIA [id number] [address] [place] [address] [place] CBC W Auto Differential pane l (Bld)on 12-27-2024 Basophils (Bld) [#/Vol] 0.03 10*3/uL Normal <0.11 [facility] Comment on above: Order Comment: Speci men Type: BLOOD SPECIMEN Ordering Facility: [facility] Address: [address] [place] [address] Performed By: #### 2 532-0, 3083-09, #### [facility] CLIA [id number] [address] [place] [address] [place] Basophils/100 WBC (Bld) 0.3 % Normal [facility] Comment on above: Order Comment: Speci men Type: BLOOD SPECIMEN Ordering Facility: [facility] Address: [address] [place] [address] Performed By: #### 2 532-0, 3083-09, #### [facility] CLIA [id number] [address] [place] [address] [place] Differential cell count method Nom (Bld) Auto Normal [facility] Comment on above: Order Comment: Speci men Type: BLOOD SPECIMEN Ordering Facility: [facility] Address: [address] [place] [address] Performed By: #### 2 532-0, 3083-09, #### [facility] CLIA [id number] [address] [place] [address] [place] Eosinophils (Bld) [#/Vol] 0.13 10*3/uL Normal <0.46 [facility] Comment on above: Order Comment: Speci men Type: BLOOD SPECIMEN Ordering Facility: [facility] Address: [address] [place] [address] Performed By: #### 2 532-0, 3083-09, #### [facility] CLIA [id number] [address] [place] [address] [place] Eosinophils/100 WBC (Bld) 1.3 % Normal [facility] Comment on above: Order Comment: Speci men Type: BLOOD SPECIMEN Ordering Facility: [facility] Address: [address] [place] [address] Performed By: #### 2 532-0, 3083-09, #### [facility] CLIA [id number] [address] [place] [address] [place] Erythrocyte distribution width (RBC) [Ratio] 13.0 % Normal 11.5-15.0 [facility] Comment on above: Order Comment: Speci men Type: BLOOD SPECIMEN Ordering Facility: [facility] Address: [address] [place] [address] Performed By: #### 2 532-0, 3083-09, #### [facility] CLIA [id number] [address] [place] [address] [place] Hematocrit (Bld) [Volume fraction] 43.0 % Normal 36.0-46.0 [facility] Comment on above: Order Comment: Speci men Type: BLOOD SPECIMEN Ordering Facility: [facility] Address: [address] [place], [place] [address] Performed By: #### 2 532-0, 3083-09, #### [facility] CLIA [id number] [address] [place], [place] [address] [place] Hemoglobin (Bld) [Mass/Vol] 14.0 g/dL Normal 11.5-15.5 [facility] Comment on above: Order Comment: Speci men Type: BLOOD SPECIMEN Ordering Facility: [facility] Address: [address] [place] [address] Performed By: #### 2 532-0, 308-1, 78655-6 #### [facility] CLIA [id number] [address] [place] [address] [place] Immature granulocytes (Bld) [#/Vol] 0.04 10*3/uL Normal <0.10 [facility] Comment on above: Order Comment: Speci men Type: BLOOD SPECIMEN Ordering Facility: [facility] Address: [address] [place] [address] Performed By: #### 2 532-0, 30812-21, 23620-7 #### [facility] CLIA [id number] [address] [place] [address] [place] Immature granulocytes/100 WBC (Bld) 0.4 % Normal [facility] Comment on above: Order Comment: Speci men Type: BLOOD SPECIMEN Ordering Facility: [facility] Address: [address] [place] [address] Performed By: #### 2 532-0, 3083-09, #### [facility] CLIA [id number] [address] [place] [address] [place] Lymphocytes (Bld) [#/Vol] 3.46 10*3/uL Normal 1.00-4.00 [facility] Comment on above: Order Comment: Speci men Type: BLOOD SPECIMEN Ordering Facility: [facility] Address: [address] [place] [address] Performed By: #### 2 532-0, 30812-21, 13598-1 #### [facility] CLIA [id number] [address] [place] [address] [place] Lymphocytes/100 WBC (Bld) 33.9 % Normal [facility] Comment on above: Order Comment: Speci men Type: BLOOD SPECIMEN Ordering Facility: [facility] Address: [address] [place] [address] Performed By: #### 2 532-0, 3084-1, 05771-2 #### [facility] CLIA [id number] [address] [place] [address] [place] MCH (RBC) [Entitic mass] 28.2 pg Normal 26.0-34.0 [facility] Comment on above: Order Comment: Speci men Type: BLOOD SPECIMEN Ordering Facility: [facility] Address: [address] [place] [address] Performed By: #### 2 532-0, 3084-1, 26344-1 #### [facility] CLIA [id number] [address] [place] [address] [place] MCHC (RBC) [Mass/Vol] 32.6 g/dL Normal 30.5-36.0 [facility] Comment on above: Order Comment: Speci men Type: BLOOD SPECIMEN Ordering Facility: [facility] Address: [address] [place] [address] Performed By: #### 2 532-0, 308-1, 71006-3 #### [facility] CLIA [id number] [address] [place] [address] [place] MCV (RBC) [Entitic vol] 86.5 fL Normal 80.0-100.0 [facility] Comment on above: Order Comment: Speci men Type: BLOOD SPECIMEN Ordering Facility: [facility] Address: [address] [place] [address] Performed By: #### 2 532-0, 3084-1, 54604-0 #### [facility] CLIA [id number] [address] [place] [address] [place] Monocytes (Bld) [#/Vol] 0.72 10*3/uL Normal <0.87 [facility] Comment on above: Order Comment: Speci men Type: BLOOD SPECIMEN Ordering Facility: [facility] Address: [address] [place] [address] Performed By: #### 2 532-0, 3083-09, #### [facility] CLIA [id number] [address] [place] [address] [place] Monocytes/100 WBC (Bld) 7.0 % Normal [facility] Comment on above: Order Comment: Speci men Type: BLOOD SPECIMEN Ordering Facility: [facility] Address: [address] [place] [address] Performed By: #### 2 532-0, 3083-09, #### [facility] CLIA [id number] [address] [place] [address] [place] Neutrophils (Bld) [#/Vol] 5.84 10*3/uL Normal 1.45-7.50 [facility] Comment on above: Order Comment: Speci men Type: BLOOD SPECIMEN Ordering Facility: [facility] Address: [address] [place] [address] Performed By: #### 2 532-0, 3083-09, #### [facility] CLIA [id number] [address] [place] [address] [place] Neutrophils/100 WBC (Bld) 57.1 % Normal [facility] Comment on above: Order Comment: Speci men Type: BLOOD SPECIMEN Ordering Facility: [facility] Address: [address] [place] [address] Performed By: #### 2 532-0, 3083-09, #### [facility] CLIA [id number] [address] [place] [address] [place] Nucleated RBC (Bld) [#/Vol] 10*3/uL Normal <0.01 [facility] Comment on above: Order Comment: Speci men Type: BLOOD SPECIMEN Ordering Facility: [facility] Address: [address] [place] [address] Performed By: #### 2 532-0, 3083-09, #### [facility] CLIA [id number] [address] [place] [address] [place] Nucleated RBC/100 WBC (Bld) [Ratio] 0.0 /100 WBC Normal [facility] Comment on above: Order Comment: Speci men Type: BLOOD SPECIMEN Ordering Facility: [facility] Address: [address] [place] [address] Performed By: #### 2 532-0, 3083-09, #### [facility] CLIA [id number] [address] [place], [place] [address] [place] Platelet mean volume (Bld) [Entitic vol] 11.5 fL Normal 9.0-12.7 [facility] Comment on above: Order Comment: Speci men Type: BLOOD SPECIMEN Ordering Facility: [facility] Address: [address] [place] [address] Performed By: #### 2 532-0, 3083-09, #### [facility] CLIA [id number] [address] [place], [place] [address] [place] Platelets (Bld) [#/Vol] 242 10*3/uL Normal 150-400 [facility] Comment on above: Order Comment: Speci men Type: BLOOD SPECIMEN Ordering Facility: [facility] Address: [address] [place] [address] Performed By: #### 2 532-0, 3083-09, #### [facility] CLIA [id number] [address] [place] [address] [place] RBC (Bld) [#/Vol] 4.97 10*6/uL Normal 3.90-5.20 [facility] Comment on above: Order Comment: Speci men Type: BLOOD SPECIMEN Ordering Facility: [facility] Address: [address] [place] [address] Performed By: #### 2 532-0, 3083-09, #### [facility] CLIA [id number] [address] [place] [address] [place] WBC (Bld) [#/Vol] 10.22 10*3/uL Normal 3.70-11.00 [facility] Comment on above: Order Comment: Speci men Type: BLOOD SPECIMEN Ordering Facility: [facility] Address: [address] [place] [address] Performed By: #### 2 532-0, 308-1, #### [facility] CLIA [id number] [address] [place], [place] [address] [place] Comprehensive metabolic 2000 panelon 12-27-2024 Albumin [Mass/Vol] 4.5 g/dL Normal 3.9-4.9 [facility] Comment on above: Order Comment: Speci men Type: BLOOD SPECIMEN Ordering Facility: [facility] Address: [address] [place] [address] Performed By: #### 2 532-0, 3083-1, #### [facility] CLIA [id number] [address] [place] [address] [place] ALP [Catalytic activity/Vol] 88 U/L Normal 34-123 [facility] Comment on above: Order Comment: Speci men Type: BLOOD SPECIMEN Ordering Facility: [facility] Address: [address] [place] [address] Performed By: #### 2 532-0, 1, #### [facility] CLIA [id number] [address] [place], [place] [address] [place] ALT [Catalytic activity/Vol] 12 U/L Normal 7-38 [facility] Comment on above: Order Comment: Speci men Type: BLOOD SPECIMEN Ordering Facility: [facility] Address: [address] [place] [address] Performed By: #### 2 532-0, 308-1, 80488-2 #### [facility] CLIA [id number] [address] [place], [place] [address] [place] Anion gap [Moles/Vol] 13 mmol/L Normal 8-15 [facility] Comment on above: Order Comment: Speci men Type: BLOOD SPECIMEN Ordering Facility: [facility] Address: [address] [place] [address] Performed By: #### 2 532-0, 3084-1, 18092-2 #### [facility] CLIA [id number] [address] [place], [place] [address] [place] AST [Catalytic activity/Vol] 13 U/L Normal 13-35 [facility] Comment on above: Order Comment: Speci men Type: BLOOD SPECIMEN Ordering Facility: [facility] Address: [address] [place] [address] Performed By: #### 2 532-0, 308-1, 74645-4 #### [facility] CLIA [id number] [address] [place] [address] [place] Bilirubin [Mass/Vol] 0.3 mg/dL Normal 0.2-1.3 [facility] Comment on above: Order Comment: Speci men Type: BLOOD SPECIMEN Ordering Facility: [facility] Address: [address] [place] [address] Performed By: #### 2 532-0, 308-1, 42297-2 #### [facility] CLIA [id number] [address] [place] [address] [place] Calcium [Mass/Vol] 9.9 mg/dL Normal 8.5-10.2 [facility] Comment on above: Order Comment: Speci men Type: BLOOD SPECIMEN Ordering Facility: [facility] Address: [address] [place] [address] Performed By: #### 2 532-0, 308-1, 14294-5 #### [facility] CLIA [id number] [address] [place], [place] [id number] [place] Chloride [Moles/Vol] 104 mmol/L Normal 98-107 [facility] Comment on above: Order Comment: Speci men Type: BLOOD SPECIMEN [facility] [facility] Address: [address] [place] [address] Performed By: #### 2 532-0, 3084-1, 16710-2 #### [facility] CLIA [id number] [address] [place] [address] [place] CO2 [Moles/Vol] 23 mmol/L Normal 22-30 [facility] Comment on above: Order Comment: Speci men Type: BLOOD SPECIMEN Ordering Facility: [facility] Address: [address] [place] [address] Performed By: #### 2 532-0, 3084-1, 33389-6 #### [facility] CLIA [id number] [address] [place] [address] [place] OF [facility] Creatinine [Mass/Vol] 0.90 mg/dL Normal 0.58-0.96 [facility] Comment on above: Order Comment: Speci men Type: BLOOD SPECIMEN Ordering Facility: [facility] Address: [address] [place] [address] Performed By: #### 2 532-0, 3084-1, 71265-4 #### [facility] CLIA [id number] [address] [place] [address] [place] Creatinine and Glomerular filtration rate.predicted panel (S/P/Bld) 89 mL/min/1.73m??? Normal >=60 [facility] Comment on above: Order Comment: Speci men Type: BLOOD SPECIMEN Ordering Facility: [facility] Address: [address] [place] [address] Result Comment: Anila mated Glomerular Filtration Rate [...] Performed By: #### 2 532-0, 3083-09, #### [facility] CLIA [id number] [address] [place], [place] [address] [place] Glucose [Mass/Vol] 92 mg/dL Normal 74-99 [facility] Comment on above: Order Comment: Jasmyne plasencia Type: BLOOD SPECIMEN Ordering Facility: [facility] Address: [address] [place] [address] Result Comment: The [place] Diabetes Association (ADA) provides guidance for cutoff [...] Standards of Medical Care in Diabetes 2016, [place] Diabetes Association. Diabetes Care. 2016.39(Suppl 1). Performed By: #### 2 532-0, 3083-09, #### [facility] CLIA [id number] [address] [place], [place] [address] [place] Potassium [Moles/Vol] 4.1 mmol/L Normal 3.7-5.1 [facility] Comment on above: Order Comment: Jasmyne plasencia Type: BLOOD SPECIMEN Ordering Facility: [facility] Address: [address] [place] [address] Performed By: #### 2 532-0, 3083-09, #### [facility] CLIA [id number] [address] [place] [address] [place] Protein [Mass/Vol] 7.0 g/dL Normal 6.3-8.0 [facility] Comment on above: Order Comment: Speci men Type: BLOOD SPECIMEN Ordering Facility: [facility] Address: [address] [place] [address] Performed By: #### 2 532-0, 3083-09, 57617-7 #### [facility] CLIA [id number] [address] [place], [place] [address] [place] Sodium [Moles/Vol] 140 mmol/L Normal 136-144 [facility] Comment on above: Order Comment: Speci men Type: BLOOD SPECIMEN Ordering Facility: [facility] Address: [address] [place] [address] Performed By: #### 2 532-0, 3083-09, #### [facility] CLIA [id number] [address] [place] [address] [place] Urea nitrogen [Mass/Vol] 15 mg/dL Normal 7-21 [facility] Comment on above: Order Comment: Speci men Type: BLOOD SPECIMEN Ordering Facility: [facility] Address: [address] [place] [address] Performed By: #### 2 532-0, 3083-09, #### [facility] CLIA [id number] [address] [place] [address] [place] HbA1c (Bld)on 12-27-2024 Average glucose Estimated from glycated hemoglobin (Bld) [Mass/Vol] 100 mg/dL Normal [facility] Comment on above: Order Comment: Speci men Type: BLOOD SPECIMENOrdering Facility: [facility] Address: [address] [place] [address] Result Comment: eAG: (Estimated average glucose) is a calculated value from HgbA1c and is billing customer service representative of the average blood glucose level in the last 2-3 month period. Performed By: #### 5 5454-3 ####[facility] [id number] [place] [address] [place] HbA1c (Bld) [Mass fraction] 5.1 % Normal 4.3-5.6 [facility] Comment on above: Order Comment: Speci men Type: BLOOD SPECIMENOrdering Facility: [facility] Address: [address] [place] [address] Result Comment: [place]a [place] Diabetes Association guidelines indicate that patients with HgbA1c in the range 5.7-6.4% are at increased risk for development of diabetes, and intervention by lifestyle modification may be beneficial. HgbA1c greater or equal to 6.5% is considered diagnostic of diabetes. Performed By: #### 5 5454-3 ####[facility] [id number] [place] [address] [place] Progest SerPl-mCncon 025 Progesterone [Mass/Vol] 8.1 ng/mL Normal See comment [facility] Comment on above: Order Comment: Spec men Type: BLOOD SPECIMEN Ordering Facility: [facility] Address: [address] [place] [address] Result Comment: Mens trual Cycle Progesterone Reference Ranges: Follicular: <1.0 ng/mL Ovulation: <12.1 ng/mL Luteal: 1.8 to 23.9 ng/mL. Progesterone Reference Ranges vary by gestational period: First Trimester: 11.0 to 44.3 ng/mL Second Trimester: 25.4 to 83.3 ng/mL Third Trimester: 58.7 to 214 ng/mL Post menopausal Progesterone: <0.5 ng/mL Reference: 1. Progesterone (Progesterone III) [package insert V 1.0 Kosovan]. [employer], [place], [place]. June 2015. Performed By: #### 2 532-0, 3084-1, 00451-8 #### [facility] CLIA [id number] [address] [place] [address] [place] T3Free SerPl-mCncon 12-28-19 25 Free T3 [Mass/Vol] 3.0 pg/mL Normal 2.3-4.1 [facility] Comment on above: Order Comment: Speci men Type: SWAB Ordering Facility: [facility] Address: [address] [place] [address] Performed By: #### 3 6902-5, TRVAMP #### [facility] CLIA [id number] [address] [place] [address] [place] T4 Free SerPl-mCncon 025 Free T4 [Mass/Vol] 1.1 ng/dL Normal 0.9-1.7 [facility] Comment on above: Order Comment: Speci men Type: BLOOD SPECIMEN Ordering Facility: [facility] Address: [address] [place] [address] Performed By: #### 2 532-0, 3084-1, 96487-6 #### [facility] CLIA [id number] [address] [place] [address] [place] TSH SerPl-aCncon 12-27-2024 TSH Qn 1.130 m[IU]/L Normal 0.270-4.200 [facility] Comment on above: Order Comment: Speci luis angel Type: BLOOD SPECIMEN Ordering Facility: [facility] Address: [address] [place] [address] Result Comment: If t he patient is , TSH reference range varies by gestational period: First Trimester (weeks 9-12): 0.180-2.990 mIU/L Second Trimester: 0.110-3.980 mIU/L Third Trimester: 0.480-4.710 mIU/L Romeo Sun et al. A Practical Approach for the Verifications and Determination of Site- and Trimester-Specific Reference Intervals for Thyroid Function tests in . Thyroid, 2019:29:3:412-420. Unruly Paul, et al. 2017 Guidelines of the [place] Thyroid Association for the Diagnosis and Management of Thyroid Disease during and the . Thyroid, 2017:27:3:315-389. Performed By: #### 2 532-0, 3084-1, 08967-2 #### [facility] CLIA [id number] [address] [place] [address] [place] Vit B12 SerPl-mCncon 025 Cobalamin (Vitamin B12) [Mass/Vol] 395 pg/mL Normal 232-1245 [facility] Comment on above: Order Comment: Speci men Type: BLOOD SPECIMEN Ordering Facility: [facility] Address: [address] [place] [address] Performed By: #### 2 532-0, 3084-1, 36783-6 #### [facility] CLIA [id number] [address] [place] [address] OF [facility] CNOVon 12-08-2024 CNOV Office Visit (FAMPWS ) ERWIN BALDWIN ([id number]) 1995 F Date Time Provider Department 12/08/24 5:00 PM [facility]AD[facility] During your visit today, we recorded the [...] process of work up and assessment with SIGN PAINTER for difficulty with getting over the last [...] agreed with the plan. Kaden Meyer DO [address] [place] [address] Phone: [phone] (more content not included)... Normal [facility] US Pelvison 10-19-2024 [facility] Radiology Study observation (narrative) [facility] CNPNon [facility]-13[facility] ERWIN BALDWIN ([id number]) 1995 F Date Time Provider Department 10/13/24 MEYER, KADEN L FAMPWS During your visit today, we recorded the following information about you: MeyerKaden wing DO Corinne 10/13/2024 12:13 PM Signed Please inform patient that her viral studies show that she has Influenza A. Ok to take Tamiflu if interested. Otherwise supportive care with increased fluids and rest Kaden Meyer Lalit Rankin LPN 10/13/2024 12:43 PM [...] Status:Closed by LALIT GILLETTE LPN on 10/13/24 [facility] CNOVon 10-12-2024 CNOV Office Visit (FAMPWS ) FAUSTOERWIN Paul ([id number]) 1995 F Date Time Provider Department 10/12/24 7:40 AM [facility] During your visit today, we recorded [...] plan. See patient instructions. Kaden Meyer DO [address] [place] [address] Allergies As of Date: 10/12/2024 Noted Allergy [...] AND RSV PCR, ROUTINE [SQCVFLRS] Order #: [id number]. #:[id number] (more content not included)... Normal [facility] COVID AND INFLUENZA A/B AND RSV PCR, ROUTINEon 10-12-2024 SARS-CoV-2 (COVID-19) RNA ALVERTO+probe Ql (Unsp spec) SARS-COV-2 (AGENT OF COVID-19) RNA: Not detected INFLUENZA A RNA: Detected INFLUENZA B RNA: Not detected RESPIRATORY SYNCYTIAL VIRUS (RSV) RNA: Not detected Abnormal [facility] Comment on above: Performed By: #### 2 532-0, 3084-1, 33606-7 #### [facility] CLIA [id number] [address] [place] [address] [place] Progest SerPl-mCncon 024 Progesterone [Mass/Vol] 8.1 ng/mL Normal See comment [facility] Comment on above: Order Comment: Speci men Type: BLOOD SPECIMEN Ordering Facility: [facility] Address: [address] [place] [address] Result Comment: Mens trual Cycle Progesterone Reference Ranges: Follicular: <1.0 ng/mL Ovulation: <12.1 ng/mL Luteal: 1.8 to 23.9 ng/mL. Progesterone Reference Ranges vary by gestational period: First Trimester: 11.0 to 44.3 ng/mL Second Trimester: 25.4 to 83.3 ng/mL Third Trimester: 58.7 to 214 ng/mL Post menopausal Progesterone: <0.5 ng/mL Reference: 1. Progesterone (Progesterone III) [package insert V 1.0 [place]ovan]. [employer], [place], [place]. June 2015. Performed By: #### 2 532-0, 3084-1, 62875-7 #### [facility] CLIA [id number] [address] [place] [address] [place] No Panel Informationon 09-11 [facility] PROGESTERONEon 09-11-2024 Progesterone [Mass/Vol] 0.3 ng/mL See comment [facility] Comment on above: Menstrual Cycle Prog esterone Reference Ranges: Follicular: <1.0 ng/mL Ovulation: <12.1 ng/mL Luteal: 1.8 to 23.9 ng/mL. Progesterone Reference Ranges vary by gestational period: First Trimester: 11.0 to 44.3 ng/mL Second Trimester: 25.4 to 83.3 ng/mL Third Trimester: 58.7 to 214 ng/mL Post menopausal Progesterone: <0.5 ng/mL Reference: 1. Progesterone (Progesterone III) [package insert V 1.0 [place]ovan]. [employer], [place], [place]. June 2015. Progest SerPl-mCncon 024 Progesterone [Mass/Vol] 0.3 ng/mL Normal See comment [facility] Comment on above: Order Comment: Speci men Type: BLOOD SPECIMEN Ordering Facility: [facility] Address: [address] [place] [address] Result Comment: Mens trual Cycle Progesterone Reference Ranges: Follicular: <1.0 ng/mL Ovulation: <12.1 ng/mL Luteal: 1.8 to 23.9 ng/mL. Progesterone Reference Ranges vary by gestational period: First Trimester: 11.0 to 44.3 ng/mL Second Trimester: 25.4 to 83.3 ng/mL Third Trimester: 58.7 to 214 ng/mL Post menopausal Progesterone: <0.5 ng/mL Reference: 1. Progesterone (Progesterone III) [package insert V 1.0 [place]]. [employer], [place], [place]. June 2015. Performed By: #### 2 532-0, 3084-1, 91803-2 #### [facility] CLIA [id number] [address] [place] [address] [place] THYROID STIMULATING HORMONEo n 09-11-2024 TSH Qn 1.100 m[IU]/L [facility] Comment on above: If the patient is [...] Paul, et al. 2017 Guidelines of the [place] Thyroid Association for the Diagnosis and Management of Thyroid Disease during and the . Thyroid, 2017:27:3:315-389. TSH Qnon 09-11-2024 Interpretation and review of laboratory results Normal [facility] TSH SerPl-aCncon 09-11-2024 TSH Qn 1.100 m[IU]/L Normal 0.270-4.200 [facility] Comment on above: Order Comment: Speci men Type: BLOOD SPECIMEN Ordering Facility: [facility] Address: [address] [place] [address] Result Comment: If t he patient is , TSH reference range varies by gestational period: First Trimester (weeks 9-12): 0.180-2.990 mIU/L Second Trimester: 0.110-3.980 mIU/L Third Trimester: 0.480-4.710 mIU/L Romeo Sun et al. A Practical Approach for the Verifications and Determination of Site- and Trimester-Specific Reference Intervals for Thyroid Function tests in . Thyroid, 2019:29:3:412-420. Unruly E, et al. 2017 Guidelines of the [place] Thyroid Association for the Diagnosis and Management of Thyroid Disease during and the . Thyroid, 2017:27:3:315-389. Performed By: #### 2 532-0, 3084-1, 00562-1 #### [facility] CLIA [id number] [address] [place], [place] [address] [place] [address] [place] [facility] 09-10-2024 CNPN Telephone (OBGYWM) ERWIN BALDWIN ([id number]) 1995 F Date Time Provider Department 09/10/24 [...] Fully Assessed Reason for Visit: Patient Question [0257] Primary Visit Diagnosis:Female infertility [N97.9] Order(s):THYROID STIMULATING HORMONE [SQTSH] Order #: [id number] FUTURE PROGESTERONE [SQPROG] Order #: [id number] FUTURE PROGESTERONE [SQPROG] Order #: [id number] FUTURE Prescriptions as of 09/13/2024 - sertraline [...] Encounter Status:Closed by HELLEN SNYDER on 09/13/24 [facility] STEPANOVmaciej 08-06-2024 CNOV Office Visit (UCWSTR ) FAUSTOERWIN Paul ([id number]) 1995 F Date Time Provider Department 08/06/24 7:30 PM [facility] During your visit today, we recorded the [...] diagnosis) - AZITHROMYCIN 250 MG TABLET 2. [place] eye disease of right eye - ICD9: 372.03, ICD10: H10.021 - POLYMYXIN B SULFATE 10,000 UNIT-TRIMETHOPRIM 1 MG/ML EYE DROPS Prescription instructions reviewed with patient as applicable. Potential red flag symptoms discussed with the patient. Reviewed appropriate action plan to take if red flag symptoms occur. Patient agreeable to treatment plan. Micah Mccarty APRN.[employer] Allergies As of Date: 08/06/2024 Noted Allergy Reaction ROCEPHIN (CEFTRIAXONE) 06/18/2005 4 - Hives 12 - Shortness of Breath Date Reviewed: 08/06/2024 Reviewed by: Avani Portillo MA - Fully Assessed Reason for Visit: Sore Throat [200] Cmt: Cough, congestion, R eye redness and soreness x1 week Primary Visit Diagnosis:Respiratory infection [J98.8] Other Visit Diagnosis:[place] eye disease of right eye [H10.021] Order(s):azithromycin (ZITHROMAX) 250 mg tabletTake 2 tablets by mouth once daily for 1 day, THEN 1 tablet once daily for 4 days.Disp: 6 tabletR (more content not included)... Normal [facility] STREP A MOLECULAR (POC)on Procedural Control Valid [facility] Strep A (POCT) Negative Negative [facility] Basophil percentageon 2021 WBC (Bld) [#/Vol] 14.1 10*3/uL 4.4-11.0 [facility] Work Phone: Blood erythrocytes count (nu mber/volume)on 08-15-2022 RBC (Bld) [#/Vol] 3.01 10*6/uL 4.2-5.4 [facility] Work Phone: Blood hemoglobin measurement (mass/volume)on 08-15-2022 Hemoglobin (Bld) [Mass/Vol] 8.8 g/dL 12.0-15.0 [facility] Work Phone: Blood platelet mean volumeon 08-15-2022 Platelet mean volume (Bld) [Entitic vol] 11.2 fL 6.2-12.0 [facility] Work Phone: Determination of erythrocyte mean corpuscular volume (MCV)on 08-15-2022 MCV (RBC) [Entitic vol] 89.7 fL 81-99 [facility] Work Phone: Glucose Glucometer (BldC) [M ass/Vol]on 08-15-2022 Glucose [Mass/Vol] 69 mg/dL 74-106 [facility] Work Phone: Comment on above: MANAGEMENT OF PATIEN T CARE PER NURSING PROTOCOL Hematocrit Auto (Bld) [Volum e fraction]on 08-15-2022 Hematocrit (Bld) [Volume fraction] 27.0 % 37-47 [facility] Work Phone: Laboratory - Hematology and Cell countson 08-15-2022 Erythrocyte distribution width (RBC) [Entitic vol] 42.5 fL 35.1-43.9 [facility] Work Phone: Erythrocyte distribution width (RBC) [Ratio] 13.2 % 11.6-14.6 [facility] Work Phone: MCH (RBC) [Entitic mass] 29.2 pg 27.0-32.0 [facility] Work Phone: MCHC Auto (RBC) [Mass/Vol]on 08-15-2022 MCHC (RBC) [Mass/Vol] 32.6 g/dL 32-36 [facility] Work Phone: [phone] Platelets bldon 08-15-2022 Platelets (Bld) [#/Vol] 172 10*3/uL 150-450 [facility] Work Phone: Absolute lymphocyte counton 08-14-2022 Lymphocytes Auto (Unsp spec) [#/Vol] 1.90 10*3/uL 0.83-4.51 [facility] Work Phone: [phone] Basophil percentageon 2021 Basophils/100 WBC (Bld) 0.2 % 0-1 [facility] Work Phone: Eosinophils/100 WBC (Bld) 0.5 % 0-5 [facility] Work Phone: [phone] Neutrophils (Bld) [#/Vol] 8.5 10*3/uL 2.0-7.7 [facility] Work Phone: Neutrophils/100 WBC (Bld) 74.1 % 47-70 [facility] Work Phone: Blood lymphocytes/100 leukoc yteson 08-14-2022 Lymphocytes/100 WBC (Bld) 16.5 % 19-41 [facility] Work Phone: [phone] Blood monocytes/100 leukocyt eson 08-14-2022 Monocytes/100 WBC (Bld) 8.1 % 0-10 [facility] Work Phone: Laboratory - Hematology and Cell countson 08-14-2022 Immature granulocytes/100 WBC (Bld) 0.600 % 0.0-0.9 [facility] Work Phone: Comment on above: IG% - Immature Granu locytes (promyelocytes, myelocytes and metamyelocytes) > 1% indicates that a LEFT SHIFT is Present. Nucleated RBC/100 WBC (Bld) [Ratio] 0 % 0-5 [facility] Work Phone: URINE OB DIP B/Oon 2 Glucose Ql (U) Negative Neg mg/dL [facility] Protein.monoclonal (U) [Mass/Vol] Negative Neg mg/dL [facility] URINE OB DIP B/Oon 2 Glucose Ql (U) Negative Neg mg/dL [facility] Protein.monoclonal (U) [Mass/Vol] Negative Neg mg/dL [facility] OBSTETRIC ULTRASOUND WHIon 1 09-23-2021 [facility] URINE OB DIP B/Oon 2 Glucose Ql (U) Negative Neg mg/dL [facility] Protein.monoclonal (U) [Mass/Vol] Negative Neg mg/dL [facility] Basophil percentageon 2021 Basophil percentage 10-25 SEEN /hpf 0-5 [facility] Work Phone: Bilirubin Test strip Ql (U)o n 07-17-2022 Bilirubin Ql (U) Negative Negative [facility] Work Phone: Ketones Test strip Ql (U)on 07-17-2022 Ketones Ql (U) 150 mg/dl Negative [facility] Work Phone: Comment on above: CRITICAL VALUE *HCRI TICAL VALUE VERIFIED. CALLED TO DWAINE LEVIN (WPOUT)07/17/22 0908 Jan Solano.RESULTS READ BACK BY SAME. Mucus LM Ql (Urine sed)on Mucus Ql (Urine sed) 0 SEEN /hpf [facility] Work Phone: Nitrite Test strip Ql (U)on 07-17-2022 Nitrite Ql (U) Negative Negative [facility] Work Phone: Protein Test strip Ql (U)on 07-17-2022 Protein Ql (U) 15 mg/dl Negative [facility] Work Phone: Squamous epithelial cells de tection in urine sediment by light microscopyon 07-17-2022 Epithelial cells.squamous LM Ql (Urine sed) 0-5 SEEN /hpf 5-10 [facility] Work Phone: Urine blood detectionon 06-23 RBC Ql (U) 150 /ul Negative [facility] Work Phone: RBC Ql (U) 10-25 SEEN /hpf 0-5 [facility] Work Phone: Urine clarityon 07-17-2022 Clarity (U) Sl. Cloudy Clear [facility] Work Phone: Urine color determinationon 07-17-2022 Color (U) Yellow Yellow [facility] Work Phone: Urine glucose detectionon Glucose Ql (U) Normal mg/dl Normal [facility] Work Phone: Urine leukocyte esterase det ection by dipstickon 07-17-2022 Leukocyte esterase Test strip Ql (U) 100 /ul Negative [facility] Work Phone: Urine pHon 07-17-2022 pH (U) 6.5 [pH] 5.0 - 8.0 [facility] Work Phone: Urine sediment bacteria coun t by microscopy (number/high power field)on 07-17-2022 Bacteria LM.HPF (Urine sed) [#/Area] 2 /[HPF] None Seen [facility] Work Phone: Urine specific gravity measu rementon 07-17-2022 Specific gravity (U) [Rel density] 1.015 1.002-1.030 [facility] Work Phone: Urobilinogen Auto test strip Ql (U)on 07-17-2022 Urobilinogen Ql (U) Normal mg/dl Normal [facility] Work Phone: URINE OB DIP B/Oon 2 Glucose Ql (U) Negative Neg mg/dL [facility] Protein.monoclonal (U) [Mass/Vol] Negative Neg mg/dL [facility] URINE OB DIP B/Oon 2 Glucose Ql (U) Negative Neg mg/dL [facility] Protein.monoclonal (U) [Mass/Vol] Negative Neg mg/dL [facility] OBSTETRIC ULTRASOUND WHIon 0 05-29-2022 [facility] URINE OB DIP B/Oon 2 Glucose Ql (U) Negative Neg mg/dL [facility] Protein.monoclonal (U) [Mass/Vol] Negative Neg mg/dL [facility] OBSTETRIC ULTRASOUND WHIon 0 03-28-2022 [facility] URINE OB DIP B/Oon 2 Glucose Ql (U) Negative Neg mg/dL [facility] Protein.monoclonal (U) [Mass/Vol] Negative Neg mg/dL [facility] URINE OB DIP B/Oon 2 Glucose Ql (U) Negative Neg mg/dL [facility] Protein.monoclonal (U) [Mass/Vol] Negative Neg mg/dL [facility] Basophil percentageon 2021 Basophil percentage 0-5 SEEN /hpf [facility] Work Phone: Bilirubin Test strip Ql (U)o n 02-04-2022 Bilirubin Ql (U) Negative Negative [facility] Work Phone: Ketones Test strip Ql (U)on 02-04-2022 Ketones Ql (U) 150 mg/dl Negative [facility] Work Phone: Comment on above: CRITICAL VALUE *H Mucus LM Ql (Urine sed)on Mucus Ql (Urine sed) 1+ /hpf [facility] Work Phone: Nitrite Test strip Ql (U)on 02-04-2022 Nitrite Ql (U) Negative Negative [facility] Work Phone: Protein Test strip Ql (U)on 02-04-2022 Protein Ql (U) 30 mg/dl Negative [facility] Work Phone: Squamous epithelial cells de tection in urine sediment by light microscopyon 02-04-2022 Epithelial cells.squamous LM Ql (Urine sed) 0-5 SEEN /hpf [facility] Work Phone: Urine blood detectionon 01-20 RBC Ql (U) Negative Negative [facility] Work Phone: RBC Ql (U) Not Reportable [facility] Work Phone: Urine clarityon 02-04-2022 Clarity (U) Clear Clear [facility] Work Phone: Urine color determinationon 02-04-2022 Color (U) Yellow Yellow [facility] Work Phone: Urine glucose detectionon Glucose Ql (U) Normal mg/dl Normal [facility] Work Phone: Urine leukocyte esterase det ection by dipstickon 02-04-2022 Leukocyte esterase Test strip Ql (U) 25 /ul Negative [facility] Work Phone: Urine pHon 02-04-2022 pH (U) 6.0 [pH] [facility] Work Phone: Urine sediment bacteria coun t by microscopy (number/high power field)on 02-04-2022 Bacteria LM.HPF (Urine sed) [#/Area] 2 /[HPF] None Seen [facility] Work Phone: Urine specific gravity measu rementon 02-04-2022 Specific gravity (U) [Rel density] 1.015 [facility] Work Phone: Urobilinogen Auto test strip Ql (U)on 02-04-2022 Urobilinogen Ql (U) Normal mg/dl Normal [facility] Work Phone: CBC panel Auto (Bld)on 01-30 Erythrocyte distribution width (RBC) [Ratio] 11.4 % Low 11.5 - 15.0 % [facility] Hematocrit (Bld) [Volume fraction] 41.4 % 36.0 - 46.0 % [facility] Hemoglobin (Bld) [Mass/Vol] 14.5 g/dL 11.5 - 15.5 g/dL [facility] MCH (RBC) [Entitic mass] 29.8 pg 26.0 - 34.0 pg [facility] MCHC (RBC) [Mass/Vol] 35.0 g/dL 30.5 - 36.0 g/dL [facility] MCV (RBC) [Entitic vol] 85.0 fL 80.0 - 100.0 fL [facility] Nucleated RBC (Bld) [#/Vol] 10*3/uL <0.01 k/uL [facility] Platelet mean volume (Bld) [Entitic vol] 10.6 fL 9.0 - 12.7 fL [facility] Platelets (Bld) [#/Vol] 255 10*3/uL 150 - 400 k/uL [facility] RBC (Bld) [#/Vol] 4.87 10*6/uL 3.90 - 5.2 0 m/uL [facility] WBC (Bld) [#/Vol] 12.31 10*3/uL High 3.70 - 11 .00 k/uL [facility] URINE OB DIP B/Oon 2 Glucose Ql (U) Negative Neg mg/dL [facility] Protein.monoclonal (U) [Mass/Vol] Negative Neg mg/dL [facility] Culture, urine Bacteria identified Cx Nom (U) Culture exhibits no growth. [facility] Work Phone: Vital Signs Date Time Vital Sign Value Performing Clinician Facility 06-07-2025 15:29-0400 Body mass index (BMI) [Ratio] 35.61 kg/m2 Jennifer Delaney APRN.CNM Work Phone: [facility] 06-07-2025 15:29-0400 Body weight 88.91 kg Jennifer Delaney APRN.CNM Work Phone: [facility] 06-07-2025 15:29-0400 Diastolic blood pressure 70 mm[Hg] Jennifer Delaney APRN.CNM Work Phone: [facility] 06-07-2025 15:29-0400 Systolic blood pressure 128 mm[Hg] Jennifer Delaney APRN.CNM Work Phone: [facility] 05-30-2025 16:20-0400 Body mass index (BMI) [Ratio] 35.43 kg/m2 Ivy Hernandez MD Work Phone: [facility] 05-30-2025 16:20-0400 Body weight 88.45 kg Ivy Hernandez MD Work Phone: [facility] 05-30-2025 16:20-0400 Diastolic blood pressure 70 mm[Hg] Ivy Hernandez MD Work Phone: [facility] 05-30-2025 16:20-0400 Systolic blood pressure 120 mm[Hg] Ivy Hernandez MD Work Phone: [facility] 05-02-2025 08:30-0400 Body mass index (BMI) [Ratio] 34.34 kg/m2 Ivy Hernandez MD Work Phone: [facility] 05-02-2025 08:30-0400 Body weight 85.73 kg Ivy Hernandez MD Work Phone: [facility] 05-02-2025 08:30-0400 Diastolic blood pressure 78 mm[Hg] Ivy Hernandez MD Work Phone: [facility] 05-02-2025 08:30-0400 Systolic blood pressure 120 mm[Hg] Ivy Hernandez MD Work Phone: [facility] 04-04-2025 08:11-0400 Body mass index (BMI) [Ratio] 33.94 kg/m2 Ivy Hernandez MD Work Phone: [facility] 04-04-2025 08:11-0400 Body weight 84.73 kg Ivy Hernandez MD Work Phone: [facility] 04-04-2025 08:11-0400 Diastolic blood pressure 68 mm[Hg] Ivy Hernandez MD Work Phone: [facility] 04-04-2025 08:11-0400 Systolic blood pressure 102 mm[Hg] Ivy Hernandez MD Work Phone: [facility] 02-28-2025 10:23-0400 Body mass index (BMI) [Ratio] 33.98 kg/m2 Ivy Ventura MD Work Phone: [facility] 02-28-2025 10:23-0400 Body weight 84.82 kg Ivy Ventura MD Work Phone: [facility] 02-28-2025 10:23-0400 Diastolic blood pressure 62 mm[Hg] Ivy Ventura MD Work Phone: [facility] 02-28-2025 10:23-0400 Systolic blood pressure 102 mm[Hg] Ivy Ventura MD Work Phone: [facility] 01-31-2025 08:15-0400 Body height 158 cm Rowena Tamms RESERVATIONS SALES SUPERVISOR.[employer] Work Phone: [facility] 01-31-2025 08:15-0400 Body mass index (BMI) [Ratio] 34.89 kg/m2 Rowena Tamms RESERVATIONS SALES SUPERVISOR.[employer] Work Phone: [facility] 01-31-2025 08:15-0400 Body weight 87.09 kg Rowena Tamms RESERVATIONS SALES SUPERVISOR.[employer] Work Phone: [facility] 01-31-2025 08:15-0400 Diastolic blood pressure 64 mm[Hg] Rowena Tamms RESERVATIONS SALES SUPERVISOR.[employer] Work Phone: [facility] 01-31-2025 08:15-0400 Systolic blood pressure 118 mm[Hg] Rowena Tamms RESERVATIONS SALES SUPERVISOR.[employer] Work Phone: [facility] 12-08-2024 17:20-0400 Body height 158 cm Kaden Meyer DO Work Phone: [facility] 12-08-2024 17:20-0400 Body mass index (BMI) [Ratio] 34.16 kg/m2 Kaden Meyer DO Work Phone: [facility] 12-08-2024 17:20-0400 Body temperature 97.59 [degF] Kaden Meyer DO Work Phone: [facility] 12-08-2024 17:20-0400 Body weight 85.28 kg Kaden Meyer DO Work Phone: [facility] 12-08-2024 17:20-0400 Diastolic blood pressure 60 mm[Hg] Kaden Meyer DO Work Phone: [facility] 12-08-2024 17:20-0400 Heart rate 80 /min Kaden Meyer DO Work Phone: [facility] 12-08-2024 17:20-0400 Respiratory rate 16 /min Kaden Meyer DO Work Phone: [facility] 12-08-2024 17:20-0400 Systolic blood pressure 100 mm[Hg] Kaden Meyer DO Work Phone: [facility] 10-14-2024 13:50-0500 Body mass index (BMI) [Ratio] 33.01 kg/m2 Ivy Hernandez MD Work Phone: [facility] 10-14-2024 13:50-0500 Body weight 83.46 kg Ivy Hernandez MD Work Phone: [facility] 10-12-2024 07:38-0500 Body mass index (BMI) [Ratio] 33.73 kg/m2 Kaden Meyer DO Work Phone: [facility] 10-12-2024 07:38-0500 Body temperature 97.5 [degF] Kaden Meyer DO Work Phone: [facility] 10-12-2024 07:38-0500 Body weight 85.28 kg Kaden Meyer DO Work Phone: [facility] 10-12-2024 07:38-0500 Diastolic blood pressure 80 mm[Hg] Kaden Meyer DO Work Phone: [facility] 10-12-2024 07:38-0500 Heart rate 84 /min Kaden Meyer DO Work Phone: [facility] 10-12-2024 07:38-0500 Respiratory rate 20 /min Kaden Meyer DO Work Phone: [facility] 10-12-2024 07:38-0500 Systolic blood pressure 120 mm[Hg] Kaden Meyer DO Work Phone: [facility] 08-06-2024 19:30-0500 Body mass index (BMI) [Ratio] 33.78 kg/m2 Jennifer Robertson RESERVATIONS SALES SUPERVISOR.[employer] Work Phone: [facility] 08-06-2024 19:30-0500 Body temperature 98.2 [degF] Jennifer Robertson RESERVATIONS SALES SUPERVISOR.[employer] Work Phone: [facility] 08-06-2024 19:30-0500 Body weight 85.4 kg Jennifer Robertson RESERVATIONS SALES SUPERVISOR.[employer] Work Phone: [facility] 08-06-2024 19:30-0500 Diastolic blood pressure 84 mm[Hg] Jennifer Robertson RESERVATIONS SALES SUPERVISOR.[employer] Work Phone: [facility] 08-06-2024 19:30-0500 Heart rate 74 /min Jennifer Robertson RESERVATIONS SALES SUPERVISOR.[employer] Work Phone: [facility] 08-06-2024 19:30-0500 Respiratory rate 18 /min Jennifer Robertson RESERVATIONS SALES SUPERVISOR.[employer] Work Phone: [facility] 08-06-2024 19:30-0500 SaO2% (BldA) [Mass fraction] 96 % Jennifer Robertson RESERVATIONS SALES SUPERVISOR.[employer] Work Phone: [facility] 08-06-2024 19:30-0500 Systolic blood pressure 120 mm[Hg] Jennifer Robertson RESERVATIONS SALES SUPERVISOR.[employer] Work Phone: [facility] 11-26-2023 07:44-0500 Body height 159 cm Kaden Meyer DO Work Phone: [facility] 11-26-2023 07:44-0500 Body temperature 97 [degF] Kaden Meyer DO Work Phone: [facility] 11-26-2023 07:44-0500 Body weight 81.19 kg Kaden Meyer DO Work Phone: [facility] 11-26-2023 07:44-0500 Diastolic blood pressure 60 mm[Hg] Kaden Meyer DO Work Phone: [facility] 11-26-2023 07:44-0500 Heart rate 64 /min Kaden Meyer DO Work Phone: [facility] 11-26-2023 07:44-0500 Systolic blood pressure 96 mm[Hg] Kaden Meyer Work Phone: [facility] 09-02-2023 08:46-0500 Body height 157.5 cm Ivy Hernandez MD Work Phone: [facility] 09-02-2023 08:46-0500 Body weight 79.83 kg Ivy Hernandez MD Work Phone: [facility] 09-02-2023 08:46-0500 Diastolic blood pressure 60 mm[Hg] Ivy Hernandez MD Work Phone: [facility] 09-02-2023 08:46-0500 Systolic blood pressure 102 mm[Hg] Ivy Hernandez MD Work Phone: [facility] 06-08-2023 08:35-0400 Body temperature 99.19 [degF] Crystal Praisler-Wood RESERVATIONS SALES SUPERVISOR.[employer] Work Phone: [facility] 06-08-2023 08:35-0400 Body weight 75.39 kg Crystal Praisler-Wood RESERVATIONS SALES SUPERVISOR.[employer] Work Phone: [facility] 06-08-2023 08:35-0400 Diastolic blood pressure 86 mm[Hg] Crystal Praisler-Wood RESERVATIONS SALES SUPERVISOR.[employer] Work Phone: [facility] 06-08-2023 08:35-0400 Heart rate 120 /min Crystal Praisler-Wood RESERVATIONS SALES SUPERVISOR.[employer] Work Phone: [facility] 06-08-2023 08:35-0400 Respiratory rate 20 /min Crystal Praisler-Wood RESERVATIONS SALES SUPERVISOR.[employer] Work Phone: [facility] 06-08-2023 08:35-0400 SaO2% (BldA) [Mass fraction] 99 % Crystal Praisler-Wood RESERVATIONS SALES SUPERVISOR.[employer] Work Phone: [facility] 06-08-2023 08:35-0400 Systolic blood pressure 104 mm[Hg] Crystal Praisler-Wood RESERVATIONS SALES SUPERVISOR.[employer] Work Phone: [facility] 05-21-2023 07:45-0400 Body weight 74.66 kg Daria Melendezman RESERVATIONS SALES SUPERVISOR.[employer] Work Phone: [facility] 05-21-2023 07:45-0400 Diastolic blood pressure 80 mm[Hg] Daria Samson RESERVATIONS SALES SUPERVISOR.[employer] Work Phone: [facility] 05-21-2023 07:45-0400 Heart rate 73 /min Daria Samson RESERVATIONS SALES SUPERVISOR.[employer] Work Phone: [facility] 05-21-2023 07:45-0400 Respiratory rate 16 /min Daria Samson RESERVATIONS SALES SUPERVISOR.[employer] Work Phone: [facility] 05-21-2023 07:45-0400 SaO2% (BldA) [Mass fraction] 97 % Daria Samson [employer]ATIONS SALES SUPERVISOR.[employer] Work Phone: [facility] 05-21-2023 07:45-0400 Systolic blood pressure 118 mm[Hg] Daria Samson [employer]ERVATIONS SALES SUPERVISOR.[employer] Work Phone: [facility] 04-10-2023 17:27-0400 Body temperature 97.11 [degF] Krislyn Aberegg PA Work Phone: [facility] 04-10-2023 17:27-0400 Body weight 74.3 kg Krislyn Aberegg PA Work Phone: [facility] 04-10-2023 17:27-0400 Diastolic blood pressure 72 mm[Hg] Krislyn Aberegg PA Work Phone: [facility] 04-10-2023 17:27-0400 Heart rate 78 /min Krislyn Aberegg PA Work Phone: [facility] 04-10-2023 17:27-0400 Respiratory rate 16 /min Krislyn Aberegg PA Work Phone: [facility] 04-10-2023 17:27-0400 SaO2% (BldA) [Mass fraction] 97 % Irma Aberegg PA Work Phone: [facility] 04-10-2023 17:27-0400 Systolic blood pressure 132 mm[Hg] Krislyn Aberegg PA Work Phone: [facility] 10-30-2022 14:28-0500 Body height 160 cm Kaden Meyer DO Work Phone: [facility] 10-30-2022 14:28-0500 Body temperature 97 [degF] Kaden Meyer DO Work Phone: [facility] 10-30-2022 14:28-0500 Body weight 68.49 kg Kaden Meyer DO Work Phone: [facility] 10-30-2022 14:28-0500 Diastolic blood pressure 80 mm[Hg] Kaden Meyer DO Work Phone: [facility] 10-30-2022 14:28-0500 Heart rate 84 /min Kaden Meyer DO Work Phone: [facility] 10-30-2022 14:28-0500 Respiratory rate 16 /min Kaden Meyer DO Work Phone: [facility] 10-30-2022 14:28-0500 Systolic blood pressure 120 mm[Hg] Kaden Meyer DO Work Phone: [facility] 09-25-2022 09:01-0500 Body weight 68.04 kg Ivy Hernandez MD Work Phone: [facility] 09-25-2022 09:01-0500 Diastolic blood pressure 70 mm[Hg] Ivy Hernandez MD Work Phone: [facility] 09-25-2022 09:01-0500 Systolic blood pressure 106 mm[Hg] Ivy Hernandez MD Work Phone: [facility] 08-21-2022 10:44-0500 Body weight 75.39 kg Ivy Hernandez MD Work Phone: [facility] 08-21-2022 10:44-0500 Diastolic blood pressure 70 mm[Hg] Ivy Hernandez MD Work Phone: [facility] 08-21-2022 10:44-0500 Systolic blood pressure 106 mm[Hg] Ivy Hernandez MD Work Phone: [facility] 08-16-2022 14:42-0500 Body temperature 96.6 [degF] [facility] Work Phone: 08-16-2022 14:42-0500 Diastolic blood pressure 68 mm[Hg] [facility] Work Phone: 08-16-2022 14:42-0500 Heart rate 83 /min [facility] Work Phone: 08-16-2022 14:42-0500 Respiratory rate 16 /min [facility] Work Phone: 08-16-2022 14:42-0500 SaO2% (BldA) [Mass fraction] 98 % [facility] Work Phone: 08-16-2022 14:42-0500 Systolic blood pressure 119 mm[Hg] [facility] Work Phone: 08-14-2022 09:39-0500 Body height 157.48 cm [facility] Work Phone: 08-14-2022 09:39-0500 Body mass index (BMI) [Ratio] 33.2 kg/m2 [facility] Work Phone: 08-14-2022 09:39-0500 Body weight 82.3 kg [facility] Work Phone: 08-07-2022 09:18-0500 Body weight 82.56 kg Ivy Hernandez MD Work Phone: [facility] 08-07-2022 09:17-0500 Diastolic blood pressure 79 mm[Hg] Ivy Hernandez MD Work Phone: [facility] 08-07-2022 09:17-0500 Systolic blood pressure 123 mm[Hg] Ivy Hernandez MD Work Phone: [facility] 07-31-2022 15:40-0500 Diastolic blood pressure 88 mm[Hg] Ivy Hernandez MD Work Phone: [facility] 07-31-2022 15:40-0500 Systolic blood pressure 138 mm[Hg] Ivy Hernandez MD Work Phone: [facility] 07-24-2022 08:37-0400 Body weight 83.46 kg Ivy Hernandez MD Work Phone: [facility] 07-24-2022 08:37-0400 Diastolic blood pressure 72 mm[Hg] Ivy Hernandez MD Work Phone: [facility] 07-24-2022 08:37-0400 Systolic blood pressure 110 mm[Hg] Ivy Hernandez MD Work Phone: [facility] 07-17-2022 08:30-0400 Body temperature 97.6 [degF] [facility] Work Phone: 07-17-2022 08:30-0400 Diastolic blood pressure 76 mm[Hg] [facility] Work Phone: 07-17-2022 08:30-0400 Heart rate 83 /min [facility] Work Phone: 07-17-2022 08:30-0400 Systolic blood pressure 126 mm[Hg] [facility] Work Phone: 07-17-2022 05:18-0400 Body mass index (BMI) [Ratio] 33.9 kg/m2 [facility] Work Phone: 07-17-2022 05:18-0400 Body weight 84.18 kg [facility] Work Phone: 07-17-2022 04:56-0400 SaO2% (BldA) [Mass fraction] 98 % [facility] Work Phone: 07-10-2022 09:00-0400 Body weight 83.01 kg Ivy Hernandez MD Work Phone: [facility] 07-10-2022 09:00-0400 Diastolic blood pressure 72 mm[Hg] Ivy Hernandez MD Work Phone: [facility] 07-10-2022 09:00-0400 Systolic blood pressure 118 mm[Hg] Ivy Hernandez MD Work Phone: [facility] 06-14-2022 10:44-0400 Body weight 84.37 kg Ivy Hernandez MD Work Phone: [facility] 06-14-2022 10:44-0400 Diastolic blood pressure 72 mm[Hg] Ivy Hernandez MD Work Phone: [facility] 06-14-2022 10:44-0400 Systolic blood pressure 118 mm[Hg] Ivy Hernandez MD Work Phone: [facility] 05-29-2022 08:24-0400 Body weight 83.01 kg Ivy Hernandez MD Work Phone: [facility] 05-29-2022 08:24-0400 Diastolic blood pressure 78 mm[Hg] Ivy Hernandez MD Work Phone: [facility] 05-29-2022 08:24-0400 Systolic blood pressure 118 mm[Hg] Ivy Hernandez MD Work Phone: [facility] 03-28-2022 15:51-0400 Body weight 78.93 kg Ivy Hernandez MD Work Phone: [facility] 03-28-2022 15:51-0400 Diastolic blood pressure 68 mm[Hg] Ivy Hernandez MD Work Phone: [facility] 03-28-2022 15:51-0400 Systolic blood pressure 110 mm[Hg] Ivy Hernandez MD Work Phone: [facility] 03-20-2022 17:46-0400 Body weight 78.2 kg Katt Zurawick RESERVATIONS SALES SUPERVISOR.[employer] Work Phone: [facility] 03-20-2022 17:46-0400 Diastolic blood pressure 60 mm[Hg] Katt Zurawick RESERVATIONS SALES SUPERVISOR.[employer] Work Phone: [facility] 03-20-2022 17:46-0400 Heart rate 64 /min Katt Zurawick [employer]ATIONS SALES SUPERVISOR.[employer] Work Phone: [facility] 03-20-2022 17:46-0400 Respiratory rate 16 /min Katt Zurawick RESERVATIONS SALES SUPERVISOR.[employer] Work Phone: [facility] 03-20-2022 17:46-0400 Systolic blood pressure 90 mm[Hg] Katt Zurawick RESERVATIONS SALES SUPERVISOR.[employer] Work Phone: [facility] 02-27-2022 10:52-0400 Body weight 76.66 kg Ivy Hernandez MD Work Phone: [facility] 02-27-2022 10:52-0400 Diastolic blood pressure 70 mm[Hg] Ivy Hernandez MD Work Phone: [facility] 02-27-2022 10:52-0400 Systolic blood pressure 112 mm[Hg] Ivy Hernandez MD Work Phone: [facility] 02-04-2022 17:33-0400 Heart rate 99 /min [facility] Work Phone: 02-04-2022 17:33-0400 Respiratory rate 18 /min [facility] Work Phone: 02-04-2022 17:33-0400 SaO2% (BldA) [Mass fraction] 99 % [facility] Work Phone: 02-04-2022 15:30-0400 Body height 157.48 cm [facility] Work Phone: 02-04-2022 15:30-0400 Body mass index (BMI) [Ratio] 31.6 kg/m2 [facility] Work Phone: 02-04-2022 15:30-0400 Body temperature 99 [degF] [facility] Work Phone: 02-04-2022 15:30-0400 Body weight 78.47 kg [facility] Work Phone: 02-04-2022 15:30-0400 Diastolic blood pressure 84 mm[Hg] [facility] Work Phone: 02-04-2022 15:30-0400 Systolic blood pressure 141 mm[Hg] [facility] Work Phone: 01-30-2022 16:11-0400 Body weight 78.93 kg Ivy Hernandez MD Work Phone: [facility] 01-30-2022 16:11-0400 Diastolic blood pressure 78 mm[Hg] Ivy Hernandez MD Work Phone: [facility] 01-30-2022 16:11-0400 Systolic blood pressure 124 mm[Hg] Ivy Hernandez MD Work Phone: [facility] Encounters Encounter Date Encounter Type Care Provider Facility Start: 09-02-2025 ambulatory Ivy Jones Facility:[facility] Start: 08-01-2025 ambulatory KADEN L MEYER Facil ity:[facility] Start: 07-28-2025 End: 07-28-2025 ambulatory KADEN L MEYER Facility:[facility] Start: 07-26-2025 End: 07-26-2025 ambulatory KADEN L MEYER Facility:[facility] Start: 07-21-2025 End: 07-21-2025 ambulatory IVYJESSICA PATTERSON HERNANDEZ Facility:[facility] Start: 07-19-2025 End: 07-19-2025 ambulatory KADEN L MEYER Facility:[facility] Start: 07-15-2025 End: 07-15-2025 ambulatory IVY HERNANDEZ Facility:[facility] Start: 07-12-2025 End: 07-12-2025 ambulatory KADEN L MEYER Facility:[facility] Start: 07-11-2025 End: 07-11-2025 ambulatory KADEN L MEYER Facility:[facility] Start: 06-27-2025 End: 06-27-2025 ambulatory KADEN L MEYER Facility:[facility] Start: 06-16-2025 End: 06-16-2025 ambulatory KADEN L MEYER Facility:[facility] Start: 06-13-2025 End: 06-13-2025 ambulatory KADEN L MEYER Facility:[facility] Start: 06-07-2025 End: 06-07-2025 Patient encounter procedure Jennifer Delaney APRN.CNM Work Phone: OB/Gynecology Comment on above: Encounter for superv ision of normal in multigravida, antepartum (HCC) (Primary Dx); 27 weeks gestation of ([facility]); headache in second trimester ([facility]); Vitreous floaters of both eyes Start: 06-07-2025 End: 06-07-2025 ambulatory KADEN L MEYER Facility:[facility] Start: 06-06-2025 End: 06-07-2025 ambulatory Ivy Hernandez MD Work Phone: OB/Gynecology Comment on above: [facility]? Start: 05-30-2025 End: 05-30-2025 Patient encounter procedure Ivy Hernandez MD Work Phone: OB/Gynecology Comment on above: Encounter for superv ision of normal in multigravida, antepartum (HCC) (Primary Dx); Prior macrosomia, antepartum, second trimester ([facility]); Obesity affecting in first trimester, unspecified obesity type ([facility]); Screening for diabetes mellitus; Encounter for supervision of other normal in second trimester ([facility]); 25 weeks gestation of ([facility]) Start: 05-30-2025 End: 05-30-2025 ambulatory KADEN Sun MEYER Facility:[facility] Start: 05-02-2025 End: 05-02-2025 Patient encounter procedure Ivy Hernandez MD Work Phone: OB/Gynecology Comment on above: Encounter for superv ision of normal in multigravida, antepartum (HCC) (Primary Dx); Prior macrosomia, antepartum, second trimester ([facility]); Obesity affecting in first trimester, unspecified obesity type ([facility]); History of gestational diabetes in prior , currently ([facility]); 21 weeks gestation of ([facility]) Start: 05-02-2025 End: 05-02-2025 [facility] KADEN MEYER Facility:[facility] Start: 04-12-2025 End: 04-12-2025 ambulatory Ivy Hernandez MD Work Phone: OB/Gynecology Comment on above: Review anatomy scan from 04/11/25 Start: 04-11-2025 End: 04-11-2025 Patient encounter procedure [employer] [facility] Comment on above: Encounter for anatomic survey (HCC) (Primary Dx); 18 weeks gestation of ([facility]) Start: 04-11-2025 End: 04-11-2025 ambulatory KADEN MEYER Facility:[facility] Start: 04-04-2025 End: 04-04-2025 Patient encounter procedure Ivy Hernandez MD Work Phone: OB/Gynecology Comment on above: Encounter for superv ision of normal in multigravida, antepartum (HCC) (Primary Dx); Prior macrosomia, antepartum, second trimester (HCC); 17 weeks gestation of ([facility]) Start: 04-04-2025 End: 04-04-2025 ambulatory Ivy Hernandez MD Work Phone: OB/Gynecology Comment on above: - Schedule ? Start: 03-18-2025 End: 03-18-2025 Refill Kaden Sun Meyer DO Work Phone: [facility] Comment on above: Refill Request Start: 03-04-2025 End: 05-04-2025 Follow-up encounter Joelle Pantoja APRN.CNP Work Phone: OB/Gynecology Start: 02-28-2025 End: 02-28-2025 ambulatory KADEN L MEYER Facility:[facility] Start: 02-28-2025 End: 02-28-2025 Patient encounter procedure Ivy Ventura MD Work Phone: OB/Gynecology Comment on above: Encounter for superv ision of normal in multigravida, antepartum (HCC) (Primary Dx); 12 weeks gestation of ([facility]); Obesity affecting in first trimester, unspecified obesity type ([facility]) Encounter for ultras ound to check growth ([facility]) (Primary Dx); 12 weeks gestation of ([facility]) Start: 02-28-2025 End: 02-28-2025 ambulatory KADEN ROMERORISON Facility:[facility] Start: 01-31-2025 End: 04-02-2025 Follow-up encounter Rowena Hawthorne APRN.CNP Work Phone: OB/Gynecology Start: 01-31-2025 End: 01-31-2025 Patient encounter procedure Rowena Hawthorne APRN.LORRI Work Phone: OB/Gynecology Comment on above: Encounter for superv ision of normal in multigravida, antepartum (HCC) (Primary Dx); History of gestational diabetes in prior , currently ([facility]); with uncertain dates in first trimester ([facility]); Screen for STD (sexually transmitted disease); 8 weeks gestation of ([facility]); BMI 34.0-34.9,adult; size inconsistent with dates ([facility]) Start: 01-31-2025 End: 01-31-2025 ambulatory KADEN L MEYER Facility:[facility] Start: 01-07-2025 End: 03-09-2025 Follow-up encounter Ivy Hernandez MD Work Phone: OB/Gynecology Start: 01-05-2025 End: 01-05-2025 ambulatory KADEN L MEYER Facility:[facility] Start: 01-05-2025 End: 03-07-2025 Follow-up encounter Kaden L Meyer DO Work Phone: [facility] [place] Start: 01-04-2025 End: 01-04-2025 Telemedicine consultation with patient Ivy Hernandez MD Work Phone: OB/Gynecology Start: 01-04-2025 End: 01-04-2025 ambulatory Ivy Hernandez MD Work Phone: OB/Gynecology Comment on above: Early stage of pregn cain (HCC) (Primary Dx) Start: 01-03-2025 End: 03-05-2025 Follow-up encounter Mallory Meyer MD Work Phone: OB/Gynecology Start: 01-03-2025 End: 01-03-2025 ambulatory KADEN L MEYER Facility:[facility] Start: 01-01-2025 End: 01-01-2025 ambulatory KADEN L MEYER Facility:[facility] Start: 12-31-2024 End: 01-04-2025 Telephone encounter Hellen Richardson MD Work Phone: OB/Gynecology Comment on above: + test Start: 12-29-2024 End: 02-28-2025 Follow-up encounter Ivy Hernandez MD Work Phone: OB/Gynecology Start: 12-27-2024 End: 12-27-2024 ambulatory KADEN L MEYER Facility:[facility] Start: 12-27-2024 Encounter for genera l adult medical examination without abnormal findings KADEN MEYER [facility] Start: 12-08-2024 End: 12-08-2024 Patient encounter procedure Kaden L Meyer DO Work Phone: [facility] Comment on above: Well adult exam (Luna kal Dx) Start: 12-08-2024 End: 12-08-2024 Patient encounter status Kaden L Meyer DO Work Phone: [facility] Work Phone: Start: 12-08-2024 End: 12-08-2024 ambulatory KADEN MCKEONON Facility:[facility] Start: 12-01-2024 End: 12-01-2024 ambulatory Ivy Hernandez MD Work Phone: OB/Gynecology Comment on above: Next steps.. Start: 10-19-2024 End: 10-19-2024 ambulatory Local [employer] Work Phone: OB/Gynecology [...] 10-12-2024 End: 10-12-2024 ambulatory KADEN L MEYER Facility:[facility] Start: 10-12-2024 End: 10-12-2024 Patient encounter procedure Kaden Mckeonon DO Work Phone: [facility] [place] Comment on above: URI, acute (Primary Dx); Fever, unspecified fever cause; Acute cough; Nausea Start: 09-18-2024 End: 09-18-2024 ambulatory KADEN L MEYER Facility:[facility] Start: 09-11-2024 End: 09-11-2024 ambulatory KADEN L MEYER Facility:[facility] Start: 09-10-2024 End: 09-13-2024 Telephone encounter Ivy Hernandez MD Work Phone: OB/Gynecology Comment on above: Patient Question Start: 08-06-2024 End: 08-06-2024 ambulatory KADEN MCKEONON Facility:[facility] Start: 08-06-2024 End: 08-06-2024 Patient encounter procedure Jennifer Robertson RESERVATIONS SALES SUPERVISOR.INSPECTOR [employer] Work Phone: [facility] Comment on above: Respiratory infectio n (Primary Dx); [place] eye disease of right eye Start: 07-08-2024 End: 07-08-2024 Refill Katt Fletcher RESERVATIONS SALES SUPERVISOR.INSPECTOR [employer] Work Phone: Family [facility] [place] Comment on above: Refill Request Start: 04-01-2024 ambulatory Ivy Hernandez MD Work Phone: OB/Gynecology Comment on above: 8 months of trying t o conceive Start: 03-23-2024 ambulatory Kaden jiménez DO Work Phone: [facility] [place] Comment on above: bloodwork? Start: 03-23-2024 Telephone encounter Kadne jimenez DO Work Phone: [facility] [place] Comment on above: Lab Orders Start: 02-17-2024 ambulatory Kaden jiménez DO Work Phone: [facility] [place] Comment on above: Hand pain/ achiness Start: 02-17-2024 Telephone encounter Kaden jimenez DO Work Phone: [facility] [place] Comment on above: Patient Question Start: 12-04-2023 Telephone encounter Ivy Hernandez MD Work Phone: OB/Gynecology Comment on above: Decreasing HCG Start: 12-01-2023 Telephone encounter Ivy Hernandez MD Work Phone: OB/Gynecology Comment on above: +UPT Start: 11-26-2023 End: 11-26-2023 Patient encounter procedure Kaden Meyer DO Work Phone: [facility] [place] Comment on above: Well adult exam (Luna kal Dx); Pain in both hands; EMILEE (generalized anxiety disorder); Class 1 obesity with body mass index (BMI) of 32.0 to 32.9 in adult, unspecified obesity type, unspecified whether serious comorbidity present Start: 11-26-2023 End: 11-26-2023 Patient encounter status Kaden Meyer DO Work Phone: [facility] Work Phone: Start: 09-02-2023 End: 09-02-2023 Patient encounter procedure Ivy Hernandez MD Work Phone: OB/Gynecology Comment on above: Encounter for gyneco logical examination (general) (routine) without abnormal findings (Primary Dx); Screening for cervical cancer Start: 09-02-2023 End: 09-02-2023 Patient encounter status Ivy Hernandez MD Work Phone: [facility] Start: 08-02-2023 ambulatory Kaden jiménez DO Work Phone: [facility] [place] Comment on above: weight ga in - weaning baby Start: 06-21-2023 End: 06-21-2023 ambulatory Immunization [facility] Nurse [place] Work Phone: Family [facility] [place] Start: 06-09-2023 Telephone encounter Kaden jimenez DO Work Phone: [facility] [place] Comment on above: Fever Start: 06-08-2023 End: 06-08-2023 Patient encounter procedure Crystal Moreau RESERVATIONS SALES SUPERVISOR.INSPECTOR [employer] Work Phone: [facility] Comment on above: Viral illness (Prima ry Dx) Start: 05-21-2023 Telephone encounter Daria Means RESERVATIONS SALES SUPERVISOR.INSPECTOR [employer] Work Phone: [facility] [place] Comment on above: Orders Start: 05-21-2023 End: 05-21-2023 Patient encounter procedure Daria Davies RESERVATIONS SALES SUPERVISOR.INSPECTOR [employer] Work Phone: [facility] [place] Comment on above: Jaw pain (Primary Dx ); Lymphadenopathy, submandibular; Yeast infection of the skin Start: 04-10-2023 End: 04-10-2023 Patient encounter procedure Irma LOMBARDO Work Phone: [facility] Comment on above: Skin lesion (Primary Dx) Start: 04-02-2023 Refill Katt Fletcher EDE Work Phone: [facility] Comment on above: Refill Request Start: 03-08-2023 Telephone encounter Kaden jimenez DO Work Phone: [facility] Comment on above: Orders Start: 02-20-2023 ambulatory Kaden jiménez DO Work Phone: [facility] Comment on above: Question on being ti red often. Start: 02-20-2023 Telephone encounter Kaden jimenez DO Work Phone: [facility] Comment on above: Patient Question (My chart) Start: 10-30-2022 End: 10-30-2022 Patient encounter procedure Kaden Meyer DO Work Phone: [facility] Comment on above: Well adult exam (Luna kal Dx); EMILEE (generalized anxiety disorder); Hypothyroidism, acquired Start: 10-30-2022 End: 10-30-2022 Patient encounter status Kaden Meyer DO Work Phone: [facility] Start: 09-25-2022 End: 09-25-2022 Patient encounter procedure [...] End: 08-16-2022 [facility] Start: 08-07-2022 End: 08-07-2022 Patient encounter procedure Ivy Hernandez MD Work Phone: OB/Gynecology Comment on above: Gestational diabetes mellitus, class A1 (Primary Dx); Excessive growth affecting management of in third trimester, single or unspecified fetus; Obesity in ; 38 weeks gestation of Start: 08-06-2022 Refill Katt mendosa APRN.CNP Work Phone: [facility] Comment on above: Refill Request Start: 07-31-2022 End: 07-31-2022 Patient encounter procedure Ivy Hernandez MD Work Phone: OB/Gynecology Comment on above: Gestational diabetes mellitus, class A1 (Primary Dx); Excessive growth affecting management of in third trimester, single or unspecified fetus; Obesity in ; 37 weeks gestation of Start: 07-24-2022 End: 07-24-2022 Patient encounter procedure Ivy Heranndez MD Work Phone: OB/Gynecology Comment on above: [...] Start: 07-17-2022 End: 07-17-2022 [facility] Start: 07-16-2022 ambulatory Ivy Hernandez MD [...] End: 03-20-2022 Patient encounter procedure Katt Singh RESERVATIONS SALES SUPERVISOR.INSPECTOR [employer] Work Phone: [facility] [place] Comment on above: EMILEE (generalized anx iety disorder) (Primary Dx) Start: 02-27-2022 End: 02-27-2022 Patient encounter procedure Ivy Hernandez MD Work Phone: OB/Gynecology Comment on above: Encounter for superv ision of normal first in second trimester (Primary Dx); 15 weeks gestation of Start: 02-04-2022 End: 02-04-2022 Emergency department patient visit [facility] Start: 02-04-2022 Telephone encounter Ivy Hernandez [...] Start: 12-26-2021 Telephone encounter Maria Teresa juarez RESERVATIONS SALES SUPERVISOR.CNM Work Phone: OB/Gynecology Comment on above: Patient Question Start: 12-25-2021 ambulatory [facility] Provider OB/Gynecol jeff Comment on above: Care [place] zuniga Enrollment Start: 12-25-2021 E-mail encounter darlyn henning caregiver [facility] Provider [place] [facility] Start: 12-12-2021 Telephone encounter Kaden jimenez DO Work Phone: [facility] [place] Comment on above: Results Start: 06-19-2018 End: 10-15-2018 Physical examination Kaden Meyer DO Work Phone: [facility] Work Phone: Procedures Date Procedure Procedure Detail Performing Clinician Start: 04-11-2025 Us preg uterus after 1st trimest 1/1st gestation Rowena Marine RESERVATIONS SALES SUPERVISOR.INSPECTOR [employer] Work Phone: Start: 02-28-2025 Antibody screen KADEN MEYER Comment on above: Order Comment: Speci men Type: BLOOD SPECIMEN Ordering Facility: [facility] Address: [address] [place] [address] Performed By: #### 2 [id number], [id number], 03862-3 #### [facility] CLIA [id number] [address] [place] [address] [place] Start: 02-28-2025 Us preg uterus after 1st trimest 1/1st gestation Rowena Marine RESERVATIONS SALES SUPERVISOR.INSPECTOR [employer] Work Phone: Start: 01-31-2025 Us uterus limited 1/> fetuses Rowena Marine RESERVATIONS SALES SUPERVISOR.INSPECTOR [employer] Work Phone: Start: 01-31-2025 Adult depression screening [...] Detail Author Start: 05-29-2032 Urine microalbumin profile [facility] Start: 05-25-2031 Urine microalbumin profile DTAP,TDAP,TD (5 - Td or Tdap) [facility] Start: 09-02-2026 Screening for malign ant neoplasm of cervix Pap Testing [facility] Start: 01-31-2026 Depression Screening Depression Scre ening [facility] Start: 10-12-2025 Covid-19 Vaccine () Covid-19 Vaccine () [facility] Comment on above: Postponed from 05/23 (Declined at this time) Start: 09-09-2025 End: 09-09-2025 Patient encounter procedure 09/09/2025 8:20 AM EST Office Visit OB/Gynecology [address] [place] [id number] Ivy Albarran MD [address] [place] [address] 1 week incision check OB/Gynecology Comment on above: 1 week incision chec k Start: 08-26-2025 End: 08-26-2025 Patient encounter procedure 08/26/2025 10:20 AM EST Routine Office Visit OB/Gynecology [address] [place] [id number] Ivy Albarran MD [address] [place] [address] OB - Pre Op C/S 09/02 @ [facility] OB/Gynecology Comment on above: OB - Pre Op C/S 08/22 2 @ [facility] Start: 08-08-2025 End: 08-08-2025 Patient encounter procedure 08/08/2025 8:00 AM EST Routine Office Visit Maternal Medicine [address] [place] [address] Growth [facility]aternal Medicine Comment on above: Growth Start: 07-26-2025 End: 07-26-2025 Patient encounter procedure 07/26/2025 8:10 AM EST Routine Office Visit OB/Gynecology [address] [place] [address] Ivy Albarran MD [address] [place] [address] OB OB/Gynecology Comment on above: OB Start: 07-12-2025 RSV Vaccine (1 - Ris k 1-dose series) RSV Vaccine (1 - Risk 1-dose series) [facility] Start: 07-12-2025 End: 07-12-2025 Patient encounter procedure 07/12/2025 8:40 AM EDT Routine Office Visit OB/Gynecology [address] [place] [address] Ivy Albarran MD [address] [place] [address] OB OB/Gynecology Comment on above: OB Start: 07-11-2025 End: 07-11-2025 Patient encounter procedure 07/11/2025 3:00 PM EDT Routine Office Visit Maternal Medicine [address] [place] [address] Growth [facility]aternal Medicine Comment on above: Growth Start: 06-27-2025 End: 06-27-2025 Patient encounter procedure 06/27/2025 10:50 AM EDT Routine Office Visit OB/Gynecology [address] [place] [address] Ivy Ventura MD [address] [place] [address] OB OB/Gynecology Comment on above: OB Start: 06-13-2025 End: 09-12-2025 ANEMIA REFLEX PANEL ANEMIA REFLEX PANEL Lab Routine Encounter for supervision of other normal in second trimester (HCC) Expected: 06/13/2025, Expires: 09/12/2025 [facility] Comment on above: Expected: 06/13/2025 , Expires: 09/12/2025 Start: 06-13-2025 End: 05-30-2026 GESTATIONAL GLUCOSE SCREEN, 1-HOUR, 50 GRAM, NON-FASTING GESTATIONAL GLUCOSE SCREEN, 1-HOUR, 50 GRAM, NON-FASTING Lab Routine Screening for diabetes mellitus Expected: 06/13/2025, Expires: 05/30/2026 [facility] Work Phone: Comment on above: Expected: 06/13/2025 , Expires: 05/30/2026 Start: 06-13-2025 End: 05-30-2026 SYPHILIS TREPONEMAL W/REFLEX SYPHILIS TREPONEMAL W/REFLEX Lab Routine Encounter for supervision of other normal in second trimester (HCC) Expected: 06/13/2025, Expires: 05/30/2026 [facility] Comment on above: Expected: 06/13/2025 , Expires: 05/30/2026 Start: 06-13-2025 End: 06-13-2025 Patient encounter procedure 06/13/2025 8:40 AM EDT Routine Office Visit OB/Gynecology [address] [place] [address] Ivy Albarran MD [address] [place] [address] OB OB/Gynecology Comment on above: OB Start: 06-13-2025 End: 06-13-2025 ambulatory 06/13/2025 8:30 AM EDT Results Only [place] [facility] [address] [place] [address] Glucose lab [facility] Comment on above: Glucose lab Start: 06-07-2025 End: 09-06-2025 Comprehensive metabolic 2000 panel - Serum or Plasma [facility] Comment on above: Expected: 06/07/2025 , Expires: 09/06/2025 Start: 06-07-2025 End: 09-06-2025 Lactate dehydrogenase [Enzymatic activity/volume] in Serum or Plasma [facility] Comment on above: Expected: 06/07/2025 , Expires: 09/06/2025 Start: 06-07-2025 End: 09-06-2025 Protein/Creatinine [Mass Ratio] in Urine [facility] Comment on above: Expected: 06/07/2025 , Expires: 09/06/2025 Start: 06-07-2025 End: 09-06-2025 Urate [Mass/volume] in Serum or Plasma [facility] Work Phone: Comment on above: Expected: 06/07/2025 , Expires: 09/06/2025 Start: 05-30-2025 End: 05-30-2025 Patient encounter procedure 05/30/2025 4:20 PM EDT Routine Office Visit OB/Gynecology [address] [place] [address] Ivy Albarran MD [address] [place] [address] OB OB/Gynecology Comment on above: OB Start: 05-23-2025 Influenza vaccination C [facility] Start: 05-02-2025 End: 05-02-2025 Patient encounter procedure 05/02/2025 8:40 AM EDT Routine Office Visit OB/Gynecology [address] [place] [address] Ivy Albarran MD [address] [place] [address] OB OB/Gynecology Comment on above: OB Start: 04-11-2025 End: 04-11-2025 Patient encounter procedure [facility] Comment on above: ANATOMY OB Start: 04-04-2025 End: 04-04-2025 Patient encounter procedure 04/04/2025 8:10 AM EDT Routine Office Visit OB/Gynecology [address] [place] [address] Ivy Albarran MD [address] [place] [address] Ob OB/Gynecology Comment on above: Ob Start: 03-21-2025 Influenza vaccination Influenza Vacc ine (#1) [facility] Comment on above: Postponed from 05/23 (Declined at this time) Start: 02-28-2025 End: 05-30-2025 Chromosome 21 trisomy [Presence] in Blood or Tissue by Cytogenetics [facility] Work Phone: Comment on above: Expected: 02/28/2025 , Expires: 05/30/2025 Start: 02-28-2025 End: 02-28-2025 Patient encounter procedure OB/Gynecology Comment on above: Nuchal Start: 01-31-2025 End: 05-02-2025 ANEMIA REFLEX PANEL ANEMIA REFLEX PANEL Lab Routine with uncertain dates in first trimester (HCC) Expected: 01/31/2025, Expires: 05/02/2025 [facility] Work Phone: Comment on above: Expected: 01/31/2025 , Expires: 05/02/2025 Start: 01-31-2025 End: 05-02-2025 Comprehensive metabolic 2000 panel - Serum or Plasma COMPREHENSIVE METABOLIC PANEL Lab Routine History of gestational diabetes in prior , currently (HCC) Expected: 01/31/2025, Expires: 05/02/2025 [facility] Comment on above: Expected: 01/31/2025 , Expires: 05/02/2025 Start: 01-31-2025 End: 05-02-2025 Hemoglobin A1c in Blood HEMOGLOBIN A1C Lab Routine with uncertain dates in first trimester (HCC) Expected: 01/31/2025, Expires: 05/02/2025 [facility] Comment on above: Expected: 01/31/2025 , Expires: 05/02/2025 Start: 01-31-2025 End: 05-02-2025 Hepatitis B virus surface Ag [Presence] in Serum HEPATITIS B SURFACE ANTIGEN Lab Routine with uncertain dates in first trimester (HCC) Expected: 01/31/2025, Expires: 05/02/2025 [facility] Comment on above: Expected: 01/31/2025 , Expires: 05/02/2025 Start: 01-31-2025 End: 05-02-2025 Hepatitis C virus Ab [Presence] in Serum HEPATITIS C ANTIBODY IA WITH CONFIRMATION Lab Routine with uncertain dates in first trimester (HCC) Expected: 01/31/2025, Expires: 05/02/2025 [facility] Comment on above: Expected: 01/31/2025 , Expires: 05/02/2025 Start: 01-31-2025 End: 05-02-2025 HIV 1+2 Ab [Presence] in Serum or Plasma by Immunoassay HIV 1/2 COMBO WITH REFLEX TO DIFFERENTIATION Lab Routine with uncertain dates in first trimester (HCC) Expected: 01/31/2025, Expires: 05/02/2025 [facility] Comment on above: Expected: 01/31/2025 , Expires: 05/02/2025 Start: 01-31-2025 End: 01-31-2026 OBSTETRIC ULTRASOUND WHI OBSTETRIC ULTRASOUND WHI Anc Imaging Routine with uncertain dates in first trimester ([facility]) Expected: 01/31/2025, Expires: 01/31/2026 [facility] Comment on above: Expected: 01/31/2025 , Expires: 01/31/2026 Start: 01-31-2025 End: 05-02-2025 Protein/Creatinine [Mass Ratio] in Urine PROTEIN / CREATININE RATIO Lab Routine History of gestational diabetes in prior , currently (HCC) Expected: 01/31/2025, Expires: 05/02/2025 [facility] Comment on above: Expected: 01/31/2025 , Expires: 05/02/2025 Start: 01-31-2025 End: 05-02-2025 RUBELLA IGG ANTIBODY RUBELLA IGG ANTIBODY Lab Routine with uncertain dates in first trimester (HCC) Expected: 01/31/2025, Expires: 05/02/2025 [facility] Comment on above: Expected: 01/31/2025 , Expires: 05/02/2025 Start: 01-31-2025 End: 05-02-2025 SYPHILIS TREPONEMAL W/REFLEX SYPHILIS TREPONEMAL W/REFLEX Lab Routine with uncertain dates in first trimester ([facility]) Expected: 01/31/2025, Expires: 05/02/2025 [facility] Comment on above: Expected: 01/31/2025 , Expires: 05/02/2025 Start: 01-31-2025 End: 05-02-2025 Thyrotropin [Units/volume] in Serum or Plasma THYROID STIMULATING HORMONE Lab Routine History of gestational diabetes in prior , currently ([facility]) Expected: 01/31/2025, Expires: 05/02/2025 [facility] Comment on above: Expected: 01/31/2025 , Expires: 05/02/2025 Start: 01-31-2025 End: 05-02-2025 TYPE + SCREEN TYPE + SCREEN Blood Bank Routine with uncertain dates in first trimester ([facility]) Expected: 01/31/2025, Expires: 05/02/2025 [facility] Comment on above: Expected: 01/31/2025 , Expires: 05/02/2025 Start: 01-31-2025 End: 01-31-2025 Patient encounter procedure 01/31/2025 8:15 AM EDT Initial Office Visit OB/Gynecology [address] [place] [address] Rowena Hawthorne APRN.INSPECTOR [employer] [address] [place] [address] OB/Gynecology Comment on above: Start: 01-05-2025 End: 01-05-2025 ambulatory 01/05/2025 4:30 PM EDT Results Only [facility] [address] [facility] [place] [address] [facility] Start: 01-04-2025 End: 04-05-2025 Choriogonadotropin.beta subunit [Units/volume] in Serum or Plasma HCG QUANTITATIVE Lab Routine Early stage of ([facility]) Expected: 01/04/2025, Expires: 04/05/2025 [facility] Work Phone: Comment on above: Expected: 01/04/2025 , Expires: 04/05/2025 Start: 12-22-2024 End: 03-23-2025 Progesterone [Mass/volume] in Serum or Plasma PROGESTERONE Lab Routine Female infertility Expected: 12/22/2024 (Approximate), Expires: 03/23/2025 [facility] Work Phone: Comment on above: Expected: 12/22/2024 (Approximate), Expires: 03/23/2025 Start: 12-08-2024 End: 12-08-2024 Patient encounter procedure 12/08/2024 5:00 PM EDT Office Visit [facility] [place] [address] [place], [place] [id number] Kaden Meyer DO [address] [place], [place] [address] Yearly physical [facility] [place] Comment on above: Yearly physical Start: 12-08-2024 End: 03-09-2025 25-hydroxyvitamin D3 [Mass/volume] in Serum or Plasma VITAMIN D 25 HYDROXY Lab Routine Well adult exam Expected: 12/08/2024, Expires: 03/09/2025 [facility] Comment on above: Expected: 12/08/2024 , Expires: 03/09/2025 Start: 12-08-2024 End: 03-09-2025 CBC W Auto Differential panel - Blood COMPLETE BLOOD COUNT AND DIFFERENTIAL Lab Routine Well adult exam Expected: 12/08/2024, Expires: 03/09/2025 [facility] Comment on above: Expected: 12/08/2024 , Expires: 03/09/2025 Start: 12-08-2024 End: 03-09-2025 Cobalamin (Vitamin B12) [Mass/volume] in Serum or Plasma VITAMIN B12 Lab Routine Well adult exam Expected: 12/08/2024, Expires: 03/09/2025 [facility] Comment on above: Expected: 12/08/2024 , Expires: 03/09/2025 Start: 12-08-2024 End: 03-09-2025 Comprehensive metabolic 2000 panel - Serum or Plasma COMPREHENSIVE METABOLIC PANEL Lab Routine Well adult exam Expected: 12/08/2024, Expires: 03/09/2025 [facility] Comment on above: Expected: 12/08/2024 , Expires: 03/09/2025 Start: 12-08-2024 End: 03-09-2025 Hemoglobin A1c in Blood HEMOGLOBIN A1C Lab Routine Well adult exam Expected: 12/08/2024, Expires: 03/09/2025 [facility] Comment on above: Expected: 12/08/2024 , Expires: 03/09/2025 Start: 12-08-2024 End: 03-09-2025 Thyrotropin [Units/volume] in Serum or Plasma THYROID STIMULATING HORMONE Lab Routine Well adult exam Expected: 12/08/2024, Expires: 03/09/2025 [facility] Work Phone: Comment on above: Expected: 12/08/2024 , Expires: 03/09/2025 Start: 12-08-2024 End: 03-09-2025 Thyroxine (T4) free [Mass/volume] in Serum or Plasma T4 FREE/FREE THYROXINE Lab Routine Well adult exam Expected: 12/08/2024, Expires: 03/09/2025 [facility] Comment on above: Expected: 12/08/2024 , Expires: 03/09/2025 Start: 12-08-2024 End: 03-09-2025 Triiodothyronine (T3) Free [Mass/volume] in Serum or Plasma T3, FREE Lab Routine Well adult exam Expected: 12/08/2024, Expires: 03/09/2025 [facility] Comment on above: Expected: 12/08/2024 , Expires: 03/09/2025 Start: 11-25-2024 Covid-19 Vaccine () Covid-19 Vaccine () [facility] Comment on above: Postponed from 05/23 (Declined at this time) Start: 10-14-2024 End: 10-14-2025 US Pelvis PELVIC US [facility] Anc Imaging Routine Dysmenorrhea Excessive bleeding in premenopausal period Expected: 10/14/2024, Expires: 10/14/2025 [facility] Work Phone: Comment on above: Expected: 10/14/2024 , Expires: 10/14/2025 Start: 10-14-2024 End: 10-14-2024 ambulatory 10/14/2024 1:40 PM [facility] [address] [place] [address] Ivy Albarran MD [address] [place] [address] talk about options (1 year of ttc). bloodwork?? OB/Gynecology Comment on above: talk about options ( 1 year of ttc). bloodwork?? Start: 09-18-2024 End: 12-18-2024 Progesterone [Mass/volume] in Serum or Plasma PROGESTERONE Lab Routine Female infertility Expected: 09/18/2024 (Approximate), Expires: 12/18/2024 [facility] Work Phone: Comment on above: Expected: 09/18/2024 (Approximate), Expires: 12/18/2024 Start: 09-02-2024 Screening for malign ant neoplasm of cervix Cervical Cancer Screening [facility] Start: 08-20-2024 End: 08-20-2024 ambulatory 08/20/2024 11:00 AM [facility] [address] [place] [id number] Gamal Mccarty MD [address] [place] [address] Preconception counseling [facility]Gy[facility] Comment on above: Preconception counse bridgett Start: 05-23-2024 Covid-19 Vaccine ( season) Covid-19 Vaccine ( season) [facility] Start: 05-23-2024 Influenza vaccination Influenza Vacc ine (#1) [facility] Start: 03-26-2024 End: 03-26-2024 ambulatory 03/26/2024 9:20 AM EDT Results Only [facility] [address] [place] [id number] [facility] Start: 03-23-2024 End: 06-22-2024 CBC panel - Blood by Automated count COMPLETE BLOOD COUNT Lab Routine Easy bruising Expected: 03/23/2024, Expires: 06/22/2024 [facility] Comment on above: Expected: 03/23/2024 , Expires: 06/22/2024 Start: 03-23-2024 End: 06-22-2024 Ferritin [Mass/volume] in Serum or Plasma FERRITIN Lab Routine Easy bruising Expected: 03/23/2024, Expires: 06/22/2024 [facility] Comment on above: Expected: 03/23/2024 , Expires: 06/22/2024 Start: 03-23-2024 End: 06-22-2024 Iron and Iron binding capacity panel - Serum or Plasma IRON AND TIBC Lab Routine Easy bruising Expected: 03/23/2024, Expires: 06/22/2024 [facility] Work Phone: Comment on above: Expected: 03/23/2024 , Expires: 06/22/2024 Start: 12-01-2023 End: 03-01-2024 Choriogonadotropin.beta subunit [Units/volume] in Serum or Plasma HCG QUANTITATIVE Lab Routine Early stage of Expected: 12/01/2023, Expires: 03/01/2024 [facility] Work Phone: Comment on above: Expected: 12/01/2023 , Expires: 03/01/2024 Start: 10-12-2023 PAP TESTING PAP TESTING [facility] Start: 10-12-2023 Screening for malign ant neoplasm of cervix Pap Testing [facility] Start: 09-22-2023 Behavioral Health Screening Behavioral Health Screening [facility] Start: 05-23-2023 Covid-19 Vaccine ( season) Covid-19 Vaccine () [facility] Start: 05-23-2023 Influenza vaccination C [facility] Start: 05-21-2023 End: 07-21-2023 25-hydroxyvitamin D3 [Mass/volume] in Serum or Plasma VITAMIN D 25 HYDROXY Lab Routine Jaw pain Lymphadenopathy, submandibular Expected: 05/21/2023, Expires: 07/21/2023 [facility] Work Phone: Comment on above: Expected: 05/21/2023 , Expires: 07/21/2023 Start: 05-21-2023 End: 07-21-2023 C reactive protein [Mass/volume] in Serum or Plasma [facility] Work Phone: Comment on above: Expected: 05/21/2023 , Expires: 07/21/2023 Start: 05-21-2023 End: 07-21-2023 CBC W Auto Differential panel - Blood [facility] Work Phone: Comment on above: Expected: 05/21/2023 , Expires: 07/21/2023 Start: 05-21-2023 End: 07-21-2023 Comprehensive metabolic 2000 panel - Serum or Plasma [facility] Work Phone: Comment on above: Expected: 05/21/2023 , Expires: 07/21/2023 Start: 03-20-2023 Adult depression screening assessment DEPRESSION SCREENING [facility] Start: 03-10-2023 End: 05-10-2023 Ascorbate [Mass/volume] in Serum or Plasma VITAMIN C Lab Routine Easy bruising Fatigue, unspecified type Expected: 03/10/2023, Expires: 05/10/2023 [facility] Work Phone: Comment on above: Expected: 03/10/2023 , Expires: 05/10/2023 Start: 02-21-2023 End: 04-23-2023 25-hydroxyvitamin D3 [Mass/volume] in Serum or Plasma VITAMIN D 25 HYDROXY Lab Routine Easy bruising Fatigue, unspecified type Expected: 02/21/2023, Expires: 04/23/2023 [facility] Work Phone: Comment on above: Expected: 02/21/2023 , Expires: 04/23/2023 Start: 02-21-2023 End: 04-23-2023 Ascorbate [Mass/volume] in Serum or Plasma VITAMIN C Lab Routine Easy bruising Fatigue, unspecified type Expected: 02/21/2023, Expires: 04/23/2023 [facility] Work Phone: Comment on above: Expected: 02/21/2023 , Expires: 04/23/2023 Start: 02-21-2023 End: 04-23-2023 CBC W Auto Differential panel - Blood CBC + DIFF Lab Routine Easy bruising Fatigue, unspecified type Expected: 02/21/2023, Expires: 04/23/2023 [facility] Work Phone: Comment on above: Expected: 02/21/2023 , Expires: 04/23/2023 Start: 02-21-2023 End: 04-23-2023 Cobalamin (Vitamin B12) [Mass/volume] in Serum or Plasma VITAMIN B12 BLOOD Lab Routine Easy bruising Fatigue, unspecified type Expected: 02/21/2023, Expires: 04/23/2023 [facility] Work Phone: Comment on above: Expected: 02/21/2023 , Expires: 04/23/2023 Start: 02-21-2023 End: 04-23-2023 Ferritin [Mass/volume] in Serum or Plasma FERRITIN BLD Lab Routine Easy bruising Fatigue, unspecified type Expected: 02/21/2023, Expires: 04/23/2023 [facility] Work Phone: Comment on above: Expected: 02/21/2023 , Expires: 04/23/2023 Start: 02-21-2023 End: 04-23-2023 Iron and Iron binding capacity panel - Serum or Plasma IRON + TIBC Lab Routine Easy bruising Fatigue, unspecified type Expected: 02/21/2023, Expires: 04/23/2023 [facility] Work Phone: Comment on above: Expected: 02/21/2023 , Expires: 04/23/2023 Start: 02-21-2023 End: 04-23-2023 Thyrotropin [Units/volume] in Serum or Plasma TSH BLD Lab Routine Easy bruising Fatigue, unspecified type Expected: 02/21/2023, Expires: 04/23/2023 [facility] Work Phone: Comment on above: Expected: 02/21/2023 , Expires: 04/23/2023 Start: 10-30-2022 End: 12-30-2022 CBC W Auto Differential panel - Blood CBC + DIFF Lab Routine Well adult exam Hypothyroidism, acquired Expected: 10/30/2022, Expires: 12/30/2022 [facility] Work Phone: Comment on above: Expected: 10/30/2022 , Expires: 12/30/2022 Start: 10-30-2022 End: 12-30-2022 Comprehensive metabolic 2000 panel - Serum or Plasma COMP METABOLIC PANEL Lab Routine Well adult exam Expected: 10/30/2022, Expires: 12/30/2022 [facility] Work Phone: Comment on above: Expected: 10/30/2022 , Expires: 12/30/2022 Start: 10-30-2022 End: 12-30-2022 Hemoglobin A1c in Blood HGB A1C Lab Routine Well adult exam Expected: 10/30/2022, Expires: 12/30/2022 [facility] Work Phone: Comment on above: Expected: 10/30/2022 , Expires: 12/30/2022 Start: 10-30-2022 End: 12-30-2022 Lipid 1996 panel - Serum or Plasma LIPID PANEL BASIC Lab Routine Well adult exam Expected: 10/30/2022, Expires: 12/30/2022 [facility] Work Phone: Comment on above: Expected: 10/30/2022 , Expires: 12/30/2022 Start: 10-30-2022 End: 12-30-2022 Thyrotropin [Units/volume] in Serum or Plasma TSH BLD Lab Routine Well adult exam Expected: 10/30/2022, Expires: 12/30/2022 [facility] Work Phone: Comment on above: Expected: 10/30/2022 , Expires: 12/30/2022 Start: 10-30-2022 End: 12-30-2022 Thyroxine (T4) free [Mass/volume] in Serum or Plasma T4 FREE/FREE THYROX Lab Routine Well adult exam Expected: 10/30/2022, Expires: 12/30/2022 [facility] Work Phone: Comment on above: Expected: 10/30/2022 , Expires: 12/30/2022 Start: 09-25-2022 End: 11-25-2022 GLUC WILBERT, 2-HR NON-GEST, 75 GM, FASTING GLUC WILBERT, 2-HR NON-GEST, 75 GM, FASTING Lab Routine History of gestational diabetes Expected: 09/25/2022, Expires: 11/25/2022 [facility] Work Phone: Comment on above: Expected: 09/25/2022 , Expires: 11/25/2022 Start: 09-22-2022 DEPRESSION ASSESSMENT DEPRESSION ASS ESSMENT [facility] Start: 08-16-2022 End: 08-16-2022 Patient discharge [facility] Work Phone: Start: 08-15-2022 Application of abdom inal corset [facility] Work Phone: Start: 08-14-2022 Notification of physician [facility] Work Phone: Start: 08-14-2022 [facility] Work Phone: Start: 08-14-2022 Application of abdom inal corset [facility] Work Phone: Start: 08-14-2022 Administration of medication [facility] Work Phone: Start: 08-14-2022 Ambulation therapy management [facility] Work Phone: Start: 08-14-[address] [facility] Work Phone: Start: 08-14-2022 Application of intermittent pneumatic compression device [facility] Work Phone: Start: 08-14-2022 Assessment of risk o f venous thromboembolism [facility] Work Phone: Start: 08-14-2022 Catheterization of vein [facility] Work Phone: Start: 08-14-2022 Deep breathing and coughing exercises [facility] Work Phone: Start: 08-14-2022 Exercises [facility] Work Phone: Start: 08-14-2022 Incentive spirometry [facility] Work Phone: Start: 08-14-2022 Measuring intake and output [facility] Work Phone: Start: 08-14-2022 Notification of physician [facility] Work Phone: Start: 08-14-2022 Procedure discontinued [facility] Work Phone: Start: 08-14-2022 Provision of activit y privileges [facility] Work Phone: Start: 08-14-2022 Vital signs measurements [facility] Work Phone: Start: 08-14-2022 Wound care [facility] Work Phone: Start: 08-14-2022 End: 08-14-2022 [facility] Work Phone: Start: 08-14-2022 section Primary C Sec tion (Not Applicable) [facility] Work Phone: Start: 08-14-2022 Admission procedure [facility] Work Phone: Start: 08-14-2022 Consultation [facility] Work Phone: Start: 07-23-2022 End: 07-23-2023 OBSTETRIC ULTRASOUND [facility] OBSTETRIC ULTRASOUND [facility] Anc Imaging Routine Gestational diabetes mellitus, class A1 Expected: 07/23/2022, Expires: 07/23/2023 [facility] Work Phone: Comment on above: Expected: 07/23/2022 , Expires: 07/23/2023 Start: 07-17-2022 Nonstress test [facility] Work Phone: Start: 07-17-2022 Obstetric monitoring [facility] Work Phone: Start: 07-17-2022 Vital signs measurements [facility] Work Phone: Start: 07-17-2022 [facility] Work Phone: Start: 07-17-2022 Patient discharge [facility] Work Phone: Start: 05-23-2022 Influenza vaccination INFLUENZA (#1) [facility] Start: 03-28-2022 End: 05-28-2022 25-hydroxyvitamin D3 [Mass/volume] in Serum or Plasma VITAMIN D 25 HYDROXY Lab Routine 19 weeks gestation of Vitamin D deficiency Expected: 03/28/2022, Expires: 05/28/2022 [facility] Work Phone: Comment on above: Expected: 03/28/2022 , Expires: 05/28/2022 Start: 03-28-2022 End: 05-28-2022 Thyrotropin [Units/volume] in Serum or Plasma TSH BLD Lab Routine 19 weeks gestation of History of thyroid nodule Expected: 03/28/2022, Expires: 05/28/2022 [facility] Work Phone: Comment on above: Expected: 03/28/2022 , Expires: 05/28/2022 Start: 01-30-2022 End: 04-01-2022 Hepatitis B virus surface Ab [Presence] in Serum by Immunoassay [facility] Work Phone: Comment on above: Expected: 01/30/2022 , Expires: 04/01/2022 Start: 01-30-2022 End: 04-01-2022 Hepatitis C virus Ab [Presence] in Serum [facility] Work Phone: Comment on above: Expected: 01/30/2022 , Expires: 04/01/2022 Start: 01-30-2022 End: 04-01-2022 HIV 1+2 Ab [Presence] in Serum or Plasma by Immunoassay [facility] Work Phone: Comment on above: Expected: 01/30/2022 , Expires: 04/01/2022 Start: 01-30-2022 End: 04-01-2022 RUBELLA IGG AB [facility] Work Phone: Comment on above: Expected: 01/30/2022 , Expires: 04/01/2022 Start: 01-30-2022 End: 04-01-2022 SYPHILIS TOTAL W/REFLEX [facility] Work Phone: Comment on above: Expected: 01/30/2022 , Expires: 04/01/2022 Start: 01-30-2022 End: 04-01-2022 TYPE + SCREEN [facility] Work Phone: Comment on above: Expected: 01/30/2022 , Expires: 04/01/2022 Start: 12-19-2021 Adult depression screening assessment DEPRESSION SCREENING [facility] Start: 12-13-2021 COVID-19 VACCINE (3 - Booster for Pfizer series) COVID-19 VACCINE (3 - Booster for Pfizer series) [facility] Start: 12-12-2021 End: 02-11-2022 TESTOSTERONE, FREE AND TOTAL TESTOSTERONE, FREE AND TOTAL Lab Routine High serum testosterone Expected: 12/12/2021, Expires: 02/11/2022 [facility] Work Phone: Comment on above: Expected: 12/12/2021 , Expires: 02/11/2022 Start: 09-22-2021 DEPRESSION ASSESSMENT DEPRESSION ASS ESSMENT [facility] Start: 09-09-2021 COVID-19 VACCINE (3 - Booster for Pfizer series) COVID-19 VACCINE (3 - Booster for Pfizer series) [facility] Start: 09-09-2021 COVID-19 VACCINE (3 - Pfizer series) COVID-19 VACCINE (3 - Pfizer series) [facility] Start: 02-02-2014 Depression Screening Depression Scre ening [facility] Start: 02-02-2014 HEPATITIS C SCREENING HEPATITIS C [facility] Start: 02-02-2014 HIV SCREENING HIV SCREENING [facility] Start: 02-02-2010 PEDS TO ADULT TRANSI TION ANNUAL ASSESSMENT PEDS TO ADULT TRANSITION ANNUAL ASSESSMENT [facility] Start: 2008 PEDS TO ADULT TRANSI TION INITIAL DISCUSSION PEDS TO ADULT TRANSITION INITIAL DISCUSSION [facility] Bacteria identified in Urine by Culture BACTERIAL CULTURE, URINE Microbiology Routine with uncertain dates in first trimester ([facility]) 01/31/2025 9:09 AM EDT [facility] Chlamydia trachomatis+Neisseria gonorrhoeae DNA [Presence] in Unspecified specimen by ALVERTO with probe detection GONORRHEA/CHLAMYDIA NAAT Lab Routine with uncertain dates in first trimester ([facility]) 01/31/2025 9:09 AM EDT [facility] COVID & INFLUENZA A/ B & RSV PCR, ROUTINE COVID & INFLUENZA A/B & RSV PCR, ROUTINE Microbiology Routine URI, acute Fever, unspecified fever cause Acute cough Nausea Ordered: 10/12/2024 [facility] Work Phone: Comment on above: Ordered: 10/12/2024 nonstress test NON-S TRESS TEST Procedures Routine Gestational diabetes mellitus, class A1 Obesity in Ordered: 07/24/2022 [facility] Work Phone: Comment on above: Ordered: 07/24/2022 Influenza virus A an d B RNA and SARS-CoV-2 (COVID-19) N gene panel - Respiratory specimen by ALVERTO with probe detection COVID & INFLUENZA A/B NAAT, ROUTINE Microbiology Routine Viral illness Ordered: 06/08/2023 [facility] Work Phone: Comment on above: Ordered: 06/08/2023 OBSTETRIC ULTRASOUND [facility] OBSTETR IC ULTRASOUND [facility] Anc Imaging Routine Encounter for supervision of normal first in first trimester Ordered: 01/30/2022 [facility] Work Phone: Comment on above: Ordered: 01/30/2022 OBSTETRIC ULTRASOUND [facility] OBSTETR IC ULTRASOUND [facility] Anc Imaging Routine 19 weeks gestation of Low-lying placenta Ordered: 03/28/2022 [facility] Work Phone: Comment on above: Ordered: 03/28/2022 OBSTETRIC ULTRASOUND [facility]I OBSTETR IC ULTRASOUND [facility] Anc Imaging Routine Excessive growth affecting management of in third trimester, single or unspecified fetus History of COVID-19 Ordered: 05/29/2022 [facility] Work Phone: Comment on above: Ordered: 05/29/2022 End: 11-26-2025 OBSTETRIC ULTRASOUND [facility] OBSTETRIC ULTRASOUND [facility] Anc Imaging Routine Prior macrosomia, antepartum, second trimester (HCC) Obesity affecting in first trimester, unspecified obesity type (HCC) Once per month for 3 Occurrences starting 05/30/2025 until 11/26/2025 [facility] Comment on above: Once per month for 3 Occurrences starting 05/30/2025 until 11/26/2025 PAP TEST PAP TEST Lab Uday gomez Screening for cervical cancer 09/02/2023 9:19 AM EST [facility] Work Phone: Patient Education [facility] Work Phone: Patient referral [facility] Work Phone: ROUTINE, GR OUP B STREP PCR ROUTINE, GROUP B STREP PCR Microbiology Routine 36 weeks gestation of 07/24/2022 8:57 AM EDT [facility] Work Phone: TRICHOMONAS VAGINALI S NAAT TRICHOMONAS VAGINALIS NAAT Lab Routine Screen for STD (sexually transmitted disease) 01/31/2025 9:09 AM EDT [facility] Immunizations Immunization Date Immunization Notes Care Provider [facility] 06-21-2023 influenza, injectabl e, quadrivalent, contains preservative Immunization [place] Work Phone: [facility] 06-21-2023 influenza virus vaccine, unspecified formulation Kaden Meyer DO Work Phone: [facility] 06-14-2022 influenza, injectabl e, quadrivalent, contains preservative Ivy Teresa Hernandez MD Work Phone: [facility] 06-14-2022 influenza, seasonal, injectable [facility] Work Phone: 06-14-2022 influenza virus vaccine, unspecified formulation Crystal Moreau RESERVATIONS SALES SUPERVISOR.INSPECTOR [employer] Work Phone: [facility] 05-29-2022 tetanus toxoid, reduced diphtheria toxoid, and acellular pertussis vaccine, adsorbed Michelle Frausto MD Work Phone: [facility] 06-18-2021 influenza, injectabl e, quadrivalent, contains preservative Maria Teresa Plotts RESERVATIONS SALES SUPERVISOR.CNM Work Phone: [facility] 05-25-2021 tetanus toxoid, reduced diphtheria toxoid, and acellular pertussis vaccine, adsorbed Maria Teresa Plotts RESERVATIONS SALES SUPERVISOR.CNM Work Phone: [facility] 06-17-2020 influenza, injectabl e, quadrivalent, contains preservative Maria Teresa Plotts RESERVATIONS SALES SUPERVISOR.CNM Work Phone: [facility] Work Phone: 07-28-2019 influenza, injectabl e, quadrivalent, contains preservative Maria Teresa Plotts RESERVATIONS SALES SUPERVISOR.CNM Work Phone: [facility] Work Phone: 06-19-2018 influenza, injectabl e, quadrivalent, contains preservative Maria Teresa Plotts RESERVATIONS SALES SUPERVISOR.CNM Work Phone: [facility] Work Phone: 07-29-2013 influenza virus vaccine, unspecified formulation Maria Teresa Sorianots RESERVATIONS SALES SUPERVISOR.CNM Work Phone: [facility] Work Phone: 04-17-2012 hepatitis A vaccine, unspecified formulation Maria Teresa Plotts RESERVATIONS SALES SUPERVISOR.CNM Work Phone: [facility] Work Phone: 04-17-2012 Meningococcal, MCV4, unspecified conjugate formulation(groups A, C, Y and W-135) Maria Teresa Stephen RESERVATIONS SALES SUPERVISOR.CNM Work Phone: [facility] Work Phone: 09-17-2010 human papilloma viru s vaccine, quadrivalent Maria Teresa Plotts RESERVATIONS SALES SUPERVISOR.CNM Work Phone: [facility] 09-17-2010 influenza virus vaccine, unspecified formulation Maria Teresa Plotts RESERVATIONS SALES SUPERVISOR.CNM Work Phone: [facility] 01-05-2010 human papilloma viru s vaccine, quadrivalent Maria Teresa Plotts RESERVATIONS SALES SUPERVISOR.CNM Work Phone: [facility] Work Phone: 07-13-2009 influenza virus vaccine, unspecified formulation Maria Teresa Stephen RESERVATIONS SALES SUPERVISOR.CNM Work Phone: [facility] Work Phone: 05-10-2009 hepatitis A vaccine, unspecified formulation Maria Teresa Stephen RESERVATIONS SALES SUPERVISOR.CNM Work Phone: [facility] Work Phone: 05-10-2009 human papilloma viru s vaccine, quadrivalent Maria Teresa Stephen RESERVATIONS SALES SUPERVISOR.CNM Work Phone: [facility] Work Phone: 05-10-2009 tetanus toxoid, reduced diphtheria toxoid, and acellular pertussis vaccine, adsorbed Maria Teresa Stephen RESERVATIONS SALES SUPERVISOR.CN Work Phone: [facility] Work Phone: 04-13-2008 Meningococcal, MCV4, unspecified conjugate formulation(groups A, C, Y and W-135) Maria Teresa Stephen RESERVATIONS SALES SUPERVISOR.CNM Work Phone: [facility] Work Phone: 05-02-2001 diphtheria, tetanus toxoids and acellular pertussis vaccine Maria Teresa Stephen RESERVATIONS SALES SUPERVISOR.CN Work Phone: [facility] Work Phone: 05-02-2001 measles, mumps and rubella virus vaccine Maria Teresa Stephen RESERVATIONS SALES SUPERVISOR.CNAnuj Work Phone: [facility] Work Phone: 05-02-2001 trivalent poliovirus vaccine, live, oral Maria Teresa Stephen APRN.CNM Work Phone: [facility] Work Phone: 07-23-1997 Chicken Pox (disease) Justina Stephen RESERVATIONS SALES SUPERVISOR.CNM Work Phone: [facility] Work Phone: 05-06-1997 diphtheria, tetanus toxoids and acellular pertussis vaccine Maria Teresa Stephen RESERVATIONS SALES SUPERVISOR.CNM Work Phone: [facility] Work Phone: 1997 haemophilus influenz ae type b vaccine, HbOC conjugate [facility] Plotts RESERVATIONS SALES SUPERVISOR.CNM Work Phone: [facility] Work Phone: 1997 measles, mumps and rubella virus vaccine Maria Teresa Plotts RESERVATIONS SALES SUPERVISOR.CNM Work Phone: [facility] Work Phone: 1996 hepatitis B vaccine, pediatric or pediatric/adolescent dosage Maria Teresa Plotts RESERVATIONS SALES SUPERVISOR.CNM Work Phone: [facility] Work Phone: 1996 DTP-Haemophilus influenzae type b conjugate vaccine Daria Samson RESERVATIONS SALES SUPERVISOR.INSPECTOR [employer] Work Phone: [facility] Work Phone: 1996 Tetramune Maria Teresa Plotts RESERVATIONS SALES SUPERVISOR.CNM Work Phone: [facility] Work Phone: 1996 trivalent poliovirus vaccine, live, oral Maria Teresa Plotts RESERVATIONS SALES SUPERVISOR.CNM Work Phone: [facility] Work Phone: 1996 DTP-Haemophilus influenzae type b conjugate vaccine Daria Samson RESERVATIONS SALES SUPERVISOR.INSPECTOR [employer] Work Phone: [facility] Work Phone: 1995 [employer] Maria Teresa Plotts RESERVATIONS SALES SUPERVISOR.CNM Work Phone: [facility] Work Phone: 1995 trivalent poliovirus vaccine, live, oral Maria Teresa Plotts RESERVATIONS SALES SUPERVISOR.CNM Work Phone: [facility] Work Phone: 1995 hepatitis B vaccine, pediatric or pediatric/adolescent dosage Maria Teresa Plotts RESERVATIONS SALES SUPERVISOR.CNM Work Phone: [facility] Work Phone: 1995 DTP-Haemophilus influenzae type b conjugate vaccine Daria Samson RESERVATIONS SALES SUPERVISOR.INSPECTOR [employer] Work Phone: [facility] Work Phone: 1996 [employer] Maria Teresa Stephen RESERVATIONS SALES SUPERVISOR.CNM Work Phone: [facility] Work Phone: 1995 trivalent poliovirus vaccine, live, oral Maria Teresa Stephen RESERVATIONS SALES SUPERVISOR.CNM Work Phone: [facility] Work Phone: 1995 hepatitis B vaccine, pediatric or pediatric/adolescent dosage Maria Teresa Stephen RESERVATIONS SALES SUPERVISOR.CNM Work Phone: [facility] Work Phone: Payers Date Payer Category Payer Self-pay [id number] 2021 [employer] Blue [employer] BLUE CARD PPO OOS [id number] 2021 Unknown [employer] BLUE CARD PPO OOS [id number] 2021-Present [phone] [place] [id number] PPO [id number] 2021 Unknown [employer] BLUE CARD PPO OOS [id number] 2021-Present [phone] [place] [id number] PPO [id number] 2021 Unknown [id number] Private Health Insurance [id number] Unknown [id number] Unknown [id number] Social History Date Type Detail Facility Start: 12-19-2015 End: 06-26-2022 Tobacco smoking status NHIS Never smoked tobacco [facility] Start: 12-25-2021 End: 06-07-2025 Alcohol intake Ex-drinker (finding) [facility] Start: 03-07-2020 End: 10-30-2022 History SDOH Alcohol Frequency 3 [facility] Start: 03-07-2020 End: 10-30-2022 History SDOH Alcohol Std Drinks 1 [facility] Start: 03-07-2020 End: 10-30-2022 History SDOH Alcohol Binge 2 [facility] Start: 10-12-2020 History SDOH Alcohol Comment occasional [facility] Start: 03-07-2020 End: 10-30-2022 History SDOH Social Connections Phone 5 [facility] Start: 03-07-2020 History SDOH Social Connections Meetings 98 [facility] Start: 03-07-2020 Education 21 [facility] Start: 12-19-2015 End: 06-26-2022 Tobacco Comment pt does not smoke [facility] Start: 11-21-2021 [facility] Start: 1995 Sex Assigned At Not on file [facility] Start: 12-03-2021 End: 05-29-2022 Exposure to SARS-CoV-2 (event) Not sure [facility] Work Phone: Start: 11-23-2021 Alcohol intake Current drinker of alcohol (finding) [facility] Start: 02-04-2022 End: 08-14-2022 Tobacco smoking status NHIS Unknown if ever smoked [facility] Work Phone: Start: 1995 Sex Assigned At Female [facility] Start: 12-19-2015 End: 06-26-2022 Tobacco use and exposure Smokeless tobacco non-user [facility] Start: 10-30-2022 End: 05-21-2023 History of Social function [facility] Start: 10-30-2022 End: 05-21-2023 Social connection and isolation panel [facility] Do you belong to any clubs or organizations such as mu-ism groups, unions, fraternal or athletic groups, or school groups? No [facility] Are you now , , , , never or living with a partner? [facility] How often to you hav e a drink containing alcohol? Monthly or less [facility] How many standard dr inks containing alcohol do you have on a typical day? 1 or 2 [facility] How often do you hav e 6 or more drinks on 1 occasion? Less than monthly [facility] Start: 08-23-2012 How hard is it for you to pay for the very basics like food, housing, medical care, and heating Not hard at all [facility] Do you feel stress - tense, restless, nervous, or anxious, or unable to sleep at night because your mind is troubled all the time - these days [OSQ] Only a little [facility] (I/We) worried wheth er (my/our) food would run out before (I/we) got money to buy more. Never true [facility] Start: 04-09-2021 Gender identity Identifies as female gender (finding) [facility] How often do you hav e 6 or more drinks on 1 occasion? Never [facility] Start: 01-27-2025 Sexual orientation Heterosexual (finding) [facility] Medical Equipment Procedure Code Equipment Code Equipment [...] 04/11/2015 3:58 PM EDT Ariella Church Ma [facility] Work Phone: 04-11-2015 Are you blind, or do you have serious difficulty seeing, even when wearing glasses No 04/11/2015 3:58 PM EDT Ariella Church Ma No [facility] 04-11-2015 Do you have serious difficulty walking or climbing stairs No 04/11/2015 3:58 PM EDT Ariella Church Ma Jeannie [facility] 04-11-2015 Do you have difficul ty dressing or bathing No 04/11/2015 3:58 PM EDT Ariella Church Ma Jeannie [facility] 04-11-2015 Because of a physica l, mental, or emotional condition, do you have difficulty doing errands alone such as visiting a physician's office or shopping No 04/11/2015 3:58 PM EDT Ariella Church Ma Jeannie [facility] Mental Status Date Assessment Result Facility 08-15-2022 [facility]: 04-11-2015 Because of a physica l, mental, or emotional condition, do you have serious difficulty concentrating, remembering, or making decisions No 04/11/2015 3:58 PM EDT Ariella Church Ma [facility] Clinical Notes 06-19-2018 to 08-01-2025 Jennifer Delaney APRN.CNM - 06/07/2025 3:34 PM EDTPatient InstructionsTelephone Encounter - Gracia Anne RN - 06/07/2025 10:34 AM EDTPatient InstructionsPatient InstructionsPatient Instructions Note Date & Type Note Facility 08-01-2025 Note HNO ID: [id number] Author: IVY ALBARRAN MD Service: ? Author Type: Physician Type: Progress Notes Filed: 08/01/2025 16:00 Note Text: NST SUMMARY PROVIDER ASSESSMENT AND INTERPRETATION Erwin Baldwni is a 30 year old female, , who is at 34w6d with an ALLEN of 09/06/2025, by Last Menstrual Period dating method. Indications for NST: Gestational Diabetes - Insulin Controlled Baseline: 130 Variability: Moderate Accelerations: Present 15 X 15 Decelerations: None Contractions: TOCO: None Interpretation: Category I and Reactive SIGNATURE: Ivy Jones MD [facility] 07-28-2025 Note HNO ID: [id number] Author: HELLEN RICHARDSON MD Service: ? Author Type: Physician Type: Progress Notes Filed: 07/28/2025 22:48 Note Text: NST SUMMARY PROVIDER ASSESSMENT AND INTERPRETATION Indications for NST: Other: 6/8 BPP Baseline: 125 Variability: Moderate Accelerations: Present 15 X 15 Decelerations: None Interpretation: Reactive SIGNATURE: Hellen Richardson MD [facility] 07-26-2025 Note HNO ID: [id number] Author: IVY ALBARRAN MD Service: ? Author [...] I and Reactive SIGNATURE: Ivy Jones MD [facility] 07-19-2025 Note HNO ID: [id number] Author: GAMAL MCCARTY MD Service: ? Author [...] None Interpretation: Reactive SIGNATURE: Gamal Mccarty MD [facility] 07-12-2025 Note HNO ID: [id number] Author: NEIVY VANN MD Service: ? Author [...] I and Reactive SIGNATURE: Ivy Jones MD [facility] 06-13-2025 Note HNO ID: [id number] Author: EMILE VELAZQUEZ MA Service: ? Author Type: Fur Mixer Operator Type: Progress Notes Filed: 06/13/2025 08:39 Note [...] severely ill: Yes Patient denies history of Guillain-[place] Syndrome (a severe paralytic illness): Yes Tdap Adacel injection was given without incident. See immunizations for details of immunizations administered today. VIS sheet provided: Yes Provider Mary was present in office at time of injection. Emile Velazquez MA [facility] 06-07-2025 Note HNO ID: [id number] Author: JENNIFER DELANEY APRN.CNM Service: ? Author Type: Mandarin Chinese Teacher Type: Progress Notes Filed: 06/07/2025 15:44 Note [...] call RTO as scheduled Jennifer Delaney APRN.CNM [facility] 06-07-2025 History of Present illness Narrative HUNTER-S: [...] Jennifer Delaney APRN.CNM documented in this encounter [facility] 06-07-2025 Instructions Kiesha Gibbs MA - 06/07/2025 3:27 PM EDT SEQUENTIAL SCREENINGS The [facility] offers sequential screenings for women who are [...] It will require an appointment with our component technician. This is not an ultrasound performed [...] the above symptoms, contact our office at [phone] and ask to speak with a nurse. After hours, you can call doctors registry at [phone] OR call [facility] at [phone] and ask to have the doctor media sales consultant paged. If you consider this an emergency, dial 9-1-2 or go to your nearest emergency department. NEED HELP? Are you dealing with a violent or abusive relationship? Are you a victim of rape or sexual assult? Call [facility] ([place]) 24 hour Crisis Hotline: 361.192.2212 or 964-662-7050. MANUAL Your Guide to a Healthy manual is now on-line. Visit [email or web address] ncyGuide to download your free copy documented in this encounter [facility] 06-07-2025 Telephone encounter Note Spoke to patient. Spots in vision have been intermittent. No headache or RUQ pain. Scheduled for appt today with HUNETR. She needed late afternoon time. Gracia Anne RN [facility] 06-07-2025 Miscellaneous Notes Spoke to patient. Spots in vision have been intermittent. No headache or RUQ pain. Scheduled for appt today with HUNTER. She needed late afternoon time. Gracia Anne RN documented in this encounter [facility] 05-30-2025 Progress note Formatting of t his note might be different from the original. DM-Pt doing well. Denies vaginal Bleeding, Leaking fluid, or regular Contractions. Pt reports good movement Physical Exam: Gen: female in no apparent distress Abd: soft, Gravid. Non tender to palpation. See flow sheet @ 25.6 weeks Assessment & Plan Encounter for supervision of normal in multigravida, antepartum ([facility]) Prior macrosomia, antepartum, second trimester ([facility]) Planning repeat cs at 39 weeks Orders: OBSTETRIC ULTRASOUND WHI; Standing Obesity affecting in first trimester, unspecified obesity type ([facility]) Orders: OBSTETRIC ULTRASOUND WHI; Standing Screening for diabetes mellitus Orders: GESTATIONAL GLUCOSE SCREEN, 1-HOUR, 50 GRAM, NON-FASTING; Future Encounter for supervision of other normal in second trimester ([facility]) Orders: SYPHILIS TREPONEMAL W/REFLEX; Future ANEMIA REFLEX PANEL; Future 25 weeks gestation of ([facility]) RTO 2 week 28 week labs ordered Ivy Jones MD [facility] 05-30-2025 Miscellaneous Notes DM-Pt doing well. Denies vaginal Bleeding, Leaking fluid, or regular Contractions. Pt reports good movement Physical Exam: Gen: female in no apparent distress Abd: soft, Gravid. Non tender to palpation. See flow sheet @ 25.6 weeks Assessment & Plan Encounter for supervision of normal in multigravida, antepartum ([facility]) Prior macrosomia, antepartum, second trimester ([facility]) Planning repeat cs at 39 weeks Orders: OBSTETRIC ULTRASOUND WHI; Standing Obesity affecting in first trimester, unspecified obesity type ([facility]) Orders: OBSTETRIC ULTRASOUND WHI; Standing Screening for diabetes mellitus Orders: GESTATIONAL GLUCOSE SCREEN, 1-HOUR, 50 GRAM, NON-FASTING; Future Encounter for supervision of other normal in second trimester ([facility]) Orders: SYPHILIS TREPONEMAL W/REFLEX; Future ANEMIA REFLEX PANEL; Future 25 weeks gestation of ([facility]) RTO 2 week 28 week labs ordered Ivy Jones MD documented in this encounter [facility] 05-30-2025 Instructions Emile Velazquez MA - 05/30/2025 4:15 PM EDT SEQUENTIAL SCREENINGS The [facility] offers sequential screenings for women who are [...] It will require an appointment with our component technician. This is not an ultrasound performed [...] the above symptoms, contact our office at [phone] and ask to speak with a nurse. After hours, you can call doctors registry at [phone] OR call [facility] at [phone] and ask to have the doctor media sales consultant paged. If you consider this an emergency, dial 05-23- or go to your nearest emergency department. NEED HELP? Are you dealing with a violent or abusive relationship? Are you a victim of rape or sexual assult? Call [facility] ([place]) 24 hour Crisis Hotline: 313.910.8626 or 114-886-1650. MANUAL Your Guide to a Healthy manual is now on-line. Visit [email or web address] [email or web address] to download your free copy documented in this encounter [facility] 05-02-2025 Progress note Formatting of t his [...] (HCC) RTO 4 wks Ivy Jones MD [facility] 05-02-2025 Miscellaneous Notes DM-Pt doing well. Denies [...] Ivy Jones MD documented in this encounter [facility] 05-02-2025 Instructions Emile Velazquez MA - 05/02/2025 8:27 AM EDT SEQUENTIAL SCREENINGS The [facility] offers sequential screenings for women who are [...] It will require an appointment with our component technician. This is not an ultrasound performed [...] the above symptoms, contact our office at [phone] and ask to speak with a nurse. After hours, you can call doctors registry at [phone] OR call [facility] at [phone] and ask to have the doctor media sales consultant paged. If you consider this an emergency, dial 9-1-1 or go to your nearest emergency department. NEED HELP? Are you dealing with a violent or abusive relationship? Are you a victim of rape or sexual assult? Call [facility] ([place]) 24 hour Crisis Hotline: 172.713.9983 or 645-146-0937. MANUAL Your Guide to a Healthy manual is now on-line. Visit [email or web address] ncyGuide to download your free copy documented in this encounter [facility] 04-04-2025 Telephone encounter Note I already filled out surgery form- turned in yesterday. I believe 09/02/25- it is my surgery day so either 7;30 or 12 is fine. [facility] 04-04-2025 Miscellaneous Notes I already filled out surgery form- turned in yesterday. I believe 09/02/25- it is my surgery day so either 7;30 or 12 is fine. Did you need a surgery sheet? Gracia Anne RN documented in this encounter [facility] 04-04-2025 Telephone encounter Note Did you need a surgery sheet? Gracia Anne RN [facility] 04-04-2025 Progress note Formatting of t his [...] need growth us 17 weeks gestation of ([facility]) Anatomy us scheduled RTO 4 wks Planning repeat cs- would like to consider TOLAC but understands if LGA/GMDA would not be good candidate. Dicussed TOLAC at tertiary care center. At this time patient would like to schedule 39 week repeat cs and will continue discussion as progresses. Ivy Jones MD [facility] 04-04-2025 Miscellaneous Notes DM-Pt doing well. Denies vaginal Bleeding, Leaking fluid, or regular Contractions. Pt reports good movement Physical Exam: Gen: female in no apparent distress Abd: soft, Gravid. Non tender to palpation. See flow sheet @ 17.6 weeks Assessment & Plan Encounter for supervision of normal in multigravida, antepartum ([facility]) Prior macrosomia, antepartum, second trimester (HCC) Will need growth us 17 weeks gestation of ([facility]) Anatomy us scheduled RTO 4 wks Planning repeat cs- would like to consider TOLAC but understands if LGA/GMDA would not be good candidate. Dicussed TOLAC at tertiary [facility] center. At this time patient would like to schedule 39 week repeat cs and will continue discussion as progresses. Ivy Jones MD documented in this encounter [facility] 04-04-2025 Instructions Yenny Thakur MA - 04/04/2025 8:11 AM EDT SEQUENTIAL SCREENINGS The [facility] offers sequential screenings for women who are [...] It will require an appointment with our component technician. This is not an ultrasound performed [...] the above symptoms, contact our office at [phone] and ask to speak with a nurse. After hours, you can call doctors registry at [phone] OR call [facility] at [phone] and ask to have the doctor media sales consultant paged. If you consider this an emergency, dial 9-1-7 or go to your nearest emergency department. NEED HELP? Are you dealing with a violent or abusive relationship? Are you a victim of rape or sexual assult? Call [facility] ([place]) 24 hour Crisis Hotline: 647.729.1156 or 610-517-1775. MANUAL Your Guide to a Healthy manual is now on-line. Visit [email or web address] [email or web address] to download your free copy documented in this encounter [facility] 03-18-2025 Telephone encounter Note Prescription Refill Information [...] Balderas LPN March 18, 2025 10:56 AM [facility] 03-18-2025 Miscellaneous Notes Prescription Refill Information The [...] 2025 10:56 AM documented in this encounter [facility] 02-28-2025 Progress note Formatting of t his [...] - RTO 4 wks Ivy Ventura DO [facility] 02-28-2025 Miscellaneous Notes SW- pt doing well. [...] Ivy Ventura DO documented in this encounter [facility] 02-28-2025 Instructions Yenny Thakur MA - 02/28/2025 10:23 AM EDT SEQUENTIAL SCREENINGS The [facility] offers sequential screenings for women who are [...] It will require an appointment with our component technician. This is not an ultrasound performed [...] the above symptoms, contact our office at [phone] and ask to speak with a nurse. After hours, you can call doctors registry at [phone] OR call [facility] at [phone] and ask to have the doctor media sales consultant paged. If you consider this an emergency, dial 9--1 or go to your nearest emergency department. NEED HELP? Are you dealing with a violent or abusive relationship? Are you a victim of rape or sexual assult? Call [facility] ([place]) 24 hour Crisis Hotline: 232.741.6827 or 790-698-3203. MANUAL Your Guide to a Healthy manual is now on-line. Visit [email or web address] [email or web address] to download your free copy documented in this encounter [facility] 01-27-2025 Note HNO ID: [id number] Author: ROWENA HAWTHORNE APRN.INSPECTOR [employer] Service: ? Author Type: Nurse Practitioner Type: [...] Status: Partner: Name: Sheila Age: 28 Occupation: [employer] Gender: Male PAST MEDICAL HISTORY Diagnosis [...] tablet Take 1 (more content not included)... [facility] 01-27-2025 History of Present illness Narrative Patient [...] discussed with the Patient or Patient's Authorized Public Service Director. As applicable, any other physician, advance practice provider, medical student, or other health professional student that will be observing or involved in the sensitive examination for educational or training purposes was discussed with the Patient or Authorized Public Service Director. The Patient or Authorized Public Service Director has agreed to proceed with the sensitive [...] Your guide to a health and the Senior Electrical Controls Engineer. Reviewed midwifery and slot supervisor services that are available. 2) Screening: Hemoglobin [...] Rowena Hawthorne APRN.CNP documented in this encounter [facility] 01-27-2025 Instructions Beckie Woodruff LPN - 01/27/2025 1:47 PM EDT Please select the following link to access the [facility] Your Guide to a Healthy . [email or web address] Please select the following link to access the [facility] Your Guide to a Healthy . [email or web address] documented in this encounter [facility] 01-10-2025 Telephone encounter Note No need for further hcg levels at this time - unless bleeding. [facility] 01-10-2025 Miscellaneous Notes No need for further hcg levels at this time - unless bleeding. documented in this encounter [facility] 01-05-2025 Telephone encounter Note Please let her know that her labs are overall great/stable except her vitamin D levels are too low- needs to increase her vitamin D intake by 3586-8592 international unit(s) a day with a meal. Also needs to start considering to increase her Vitamin B12 rich foods or start a low dose supplement at 500-1000 mcg a day of vitamin B12 in AM Kaden Meyer DO [facility] 01-05-2025 Miscellaneous Notes Please let her know that her labs are overall great/stable except her vitamin D levels are too low- needs to increase her vitamin D intake by 4274-5010 international unit(s) a day with a meal. Also needs to start considering to increase her Vitamin B12 rich foods or start a low dose supplement at 500-1000 mcg a day of vitamin B12 in AM Kaden Meyer DO documented in this encounter [facility] 01-04-2025 Note HNO ID: [id number] Author: IVY ALBARRAN MD Service: ? Author Type: Physician Type: Progress Notes Filed: 01/04/2025 12:29 Note Text: VIRTUAL VISIT PROGRESS NOTE This is a virtual visit using [employer] Z[employer] Video Visit. It required patient-provider interaction for the medical decision making as documented below. I have communicated my name and active licensure. The patient's identity and physical location were verified at the time of this visit. Either the patient or their legal billing customer service representative has been informed of the risks [...] Level: 3 - Low Ivy Jones MD [facility] 01-04-2025 History of Present illness Narrative VIRTUAL VISIT PROGRESS NOTE This is a virtual visit using [email or web address] Video Visit. It required patient-provider interaction for the medical decision making as documented below. I have communicated my name and active licensure. The patient's identity and physical location were verified at the time of this visit. Either the patient or their legal billing customer service representative has been informed of the risks [...] Ivy Jones MD documented in this encounter [facility] 01-04-2025 Telephone encounter Note Patient has NOB already scheduled. Hellen Snyder RN [facility] 01-04-2025 Miscellaneous Notes Patient has NOB already [...] Diane Fraga RN documented in this encounter [facility] 01-04-2025 Telephone encounter Note Excellent, congrats! Trending up appropriately. Schedule for new ob visit. [facility] 01-04-2025 Telephone encounter Note hCG Quantitative, Blood Date Value 01/03/2025 122.5 mIU/mL 01/01/2025 54.8 mIU/mL Please see Result f/u note from 01/03/25 with Pt's questions.Pt has virtual visit with DM today at 11:40am. Diane Fraga RN [facility] 12-31-2024 Telephone encounter Note Pt notified to get completed Friday01/01/25 and Friday01/03/25. Please keep open for results. Diane Fraga RN [facility] 12-31-2024 Telephone encounter Note LMP 11/30/24 Pt [...] and will contact Pt. Diane Fraga RN [facility] 12-08-2024 Note HNO ID: [id number] Author: KADEN MEYER, DO Service: ? Author Type: Physician Type: Progress Notes Filed: 12/08/2024 18:33 Note Text: CC: Erwin Baldwin is a 29 year old female who presents to the office for physical HPI: Overall she is doing well She is in the process of work up and assessment with SIGN PAINTER for difficulty with getting over the last [...] agreed with the plan. Kaden Meyer DO [address] [place] [address] [facility] 12-08-2024 History of Present illness Narrative CC: Erwin Baldwin is a 29 year old female who presents to the office for physical HPI: Overall she is doing well She is in the process of work up and assessment with SIGN PAINTER for difficulty with getting over the last [...] with the plan. Kaden Meyer DO [address] [place] [address] documented in this encounter [facility] 12-01-2024 Telephone encounter Note I spent a total of 5 minutes on the date of the service which included completing clinical documentation, obtaining and/or reviewing separately obtained history, and ordering medications, tests, or procedures. [facility] 12-01-2024 Miscellaneous Notes I spent a total of 5 minutes on the date of the service which included completing clinical documentation, obtaining and/or reviewing separately obtained history, and ordering medications, tests, or procedures. documented in this encounter [facility] 10-19-2024 Note Indication Evaluation of abnormal uterine [...] M.D. [facility] 10-19-2024 Note HNO ID: [id number] Author: JUAN C SOLOMON MD Service: ? Author Type: Physician Type: Progress Notes Filed: 10/19/2024 14:44 Note Text: The patient presents for requested ultrasound. Full report available in the Imaging tab in sofatutor. Juan C Solomon MD [facility] 10-19-2024 History of Present illness Narrative The patient presents for requested ultrasound. Full report available in the Imaging tab in sofatutor. Juna C Solomon MD documented in this encounter [facility] 10-14-2024 Note HNO ID: [id number] Author: IVY ALBARRAN MD Service: ? Author Type: Physician Type: Progress Notes Filed: 10/14/2024 14:01 Note Text: VIRTUAL VISIT PROGRESS NOTE This is a virtual visit using [employer] Video Visit. It required patient-provider interaction for the medical decision making as documented below. I have communicated my name and active licensure. The patient's identity and physical location were verified at the time of this visit. Either the patient or their legal billing customer service representative has been informed of the risks [...] which included preparing to see the patient, [id number] patient care, completing clinical documentatio (more content not included)... [facility] 10-14-2024 History of Present illness Narrative VIRTUAL VISIT PROGRESS NOTE This is a virtual visit using [email or web address] Video Visit. It required patient-provider interaction for the medical decision making as documented below. I have communicated my name and active licensure. The patient's identity and physical location were verified at the time of this visit. Either the patient or their legal billing customer service representative has been informed of the risks [...] which included preparing to see the patient, [id number] patient care, completing clinical documentation, obtaining and/or reviewing separately obtained history, performing a medically appropriate examination, counseling and educating the patient/family/caregiver, and ordering medications, tests, or procedures Ivy Jones MD documented in this encounter [facility] 10-13-2024 Telephone encounter Note Pt. informed [facility] 10-13-2024 Miscellaneous Notes Pt. informed Please inform patient that her viral studies show that she has Influenza A. Ok to take Tamiflu if interested. Otherwise supportive care with increased fluids and rest Kaden Meyer DO documented in this encounter [facility] 10-13-2024 Telephone encounter Note Please inform patient that her viral studies show that she has Influenza A. Ok to take Tamiflu if interested. Otherwise supportive care with increased fluids and rest Kaden Meyer DO [facility] 10-12-2024 Note HNO ID: [id number] Author: KADEN MEYER DO Service: ? Author [...] plan. See patient instructions. Kaden Meyer DO [address] [place] [address] [facility] 10-12-2024 History of Present illness Narrative CC: [...] plan. See patient instructions. Kaden Meyer DO [address] [place] [address] documented in this encounter [facility] 09-13-2024 Telephone encounter Note ordered [facility] 09-13-2024 Miscellaneous Notes ordered Spoke with patient. [...] year if possible. documented in this encounter [facility] 09-13-2024 Telephone encounter Note Spoke with patient. She had her labs done over the weekend. Cycle day 21 will be this Friday. Can you please file a new order. Pending Hellen Snyder RN [facility] 09-10-2024 Telephone encounter Note Will order labs Day 21 progesterone and TSH Make sure she does it on day 21 of cycle. Can't order anything else until she is assessed. [facility] 09-10-2024 Telephone encounter Note Patient has appointment [...] any labs drawn this year if possible. [facility] 08-06-2024 Note HNO ID: [id number] Author: MICAH MCCARTY APRN.[facility] Service: ? Author Type: Nurse Practitioner Type: [...] diagnosis) - AZITHROMYCIN 250 MG TABLET 2. [place] eye disease of right eye - ICD9: 372.03, ICD10: H10.021 - POLYMYXIN B SULFATE 10,000 UNIT-TRIMETHOPRIM 1 MG/ML EYE DROPS Prescription instructions reviewed with patient as applicable. Potential red flag symptoms discussed with the patient. Reviewed appropriate action plan to take if red flag symptoms occur. Patient agreeable to treatment plan. Micah Mccarty APRN.[facility] 08-06-2024 History of Present illness Narrative [...] diagnosis) - AZITHROMYCIN 250 MG TABLET 2. [place] eye disease of right eye - ICD9: 372.03, ICD10: H10.021 - POLYMYXIN B SULFATE 10,000 UNIT-TRIMETHOPRIM 1 MG/ML EYE DROPS Prescription instructions reviewed with patient as applicable. Potential red flag symptoms discussed with the patient. Reviewed appropriate action plan to take if red flag symptoms occur. Patient agreeable to treatment plan. Micah Mccarty APRN.[employer] documented in this encounter [facility] 07-08-2024 Telephone encounter Note Prescription Refill Information [...] Balderas LPN July 08, 2024 2:04 PM [facility] 07-08-2024 Miscellaneous Notes Prescription Refill Information Called [...] 2024 2:04 PM documented in this encounter [facility] 03-23-2024 Telephone encounter Note Pt called and is notified of providers message. Pt voices understanding. Yenny Carlisle RN [facility] 03-23-2024 Miscellaneous Notes Pt called and is [...] Lucille Rausch MA documented in this encounter [facility] 03-23-2024 Telephone encounter Note Lab orders placed. Daria Davies APRN.[employer] [facility] 03-23-2024 Telephone encounter Note Please see pt message-- Hello! I have been bruising really easily lately. I was wondering if we could do some bloodwork for my iron? I am curios if it is low? Last visit - 11/26/2023 well visit. Labs last completed 6 months ago. Lucille Rausch MA [facility] 03-23-2024 Telephone encounter Note Turned into TE Lucille Rausch MA [facility] 03-23-2024 Miscellaneous Notes Turned into TE Lucille Rausch MA documented in this encounter [facility] 02-19-2024 Telephone encounter Note TC to patient who verbalized understanding of below. Patient states she has a chiropractor and will schedule an appointment. No further questions at this time. HEIDI Brooks [facility] 02-19-2024 Miscellaneous Notes TC to patient who [...] out a chiropractor? documented in this encounter [facility] 02-18-2024 Telephone encounter Note Please have her start with chiropractic or PHYSICAL THERAPY/OT. If not improving, then needs inflammatory labs drawn Kaden Meyer DO [facility] 02-17-2024 Telephone encounter Note Please see pt [...] be? Should I try out a chiropractor? [facility] 02-17-2024 Telephone encounter Note Turned into TE Lucille Rausch MA [facility] 02-17-2024 Miscellaneous Notes Turned into TE Lucille Rausch MA documented in this encounter [facility] 12-04-2023 Miscellaneous Notes Patient notified. Gracia Anne [...] 12/01/2023 13.7 mIU/mL documented in this encounter [facility] 12-01-2023 Miscellaneous Notes Patient notified. Gracia Anne RN ordered LMP 2/ Patient took a faint positive UPT after her missed period on Friday. States the test is a faint positive and still continues to be. Asking for hCG quant. Order pending. Hellen Snyder RN documented in this encounter [facility] 11-26-2023 Instructions Kaden Meyer DO - 11/26/2023 8:07 AM EST Turmeric - curcumin 500-1000 mg 1-2 times a day with food- this can help inflammation documented in this encounter [facility] 11-26-2023 History of Present illness Narrative CC: [...] diet of 1000 mg/day for under 50, 0144-7731 mg/day for 50+ - Discussed need and [...] with the plan. Kaden Meyer DO [address] [place] [address] documented in this encounter [facility] 09-02-2023 History of Present illness Narrative Clinical Counselor offered: Patient declines. rEwin is a 28 year old who presents [...] L1 SAB0 IAB0 Ectopic0 Multiple0 Live Births1 [employer] History LMP: 08/30/2023 (Exact Date), Having periods Age at Menarche: Age at First : Age at Menopause: [employer] History Comments: Sexual Activity: Yes; Male Contraception: [...] external genitalia normal, normal Bartholin's glands, urethra, Millbrook's glands, no vulvar lesions, no cervical lesions, [...] Ivy Jones MD documented in this encounter [facility] 08-02-2023 Miscellaneous Notes See telephone note documented in this encounter [facility] 06-10-2023 Miscellaneous Notes Pt. feeling better today. [...] Tamia Riley LPN documented in this encounter [facility] 06-08-2023 History of Present illness Narrative Subjective [...] Discussed expected course of illness Crystal Moreau APRN.[employer] documented in this encounter [facility] 06-08-2023 Instructions Crystal Moreau APRN.[employer] - 06/08/2023 8:43 AM EDT ASSESSMENT/PLAN: 1. [...] Crystal Moreau APRN.[facility]RI documented in this encounter [facility] 05-21-2023 Miscellaneous Notes Noted, thank you. Daria [...] Daria Davies APRN.CNP documented in this encounter [facility] 05-21-2023 History of Present illness Narrative Chief [...] KETOCONAZOLE 2 % TOPICAL CREAM Daria Davies APRN.[employer] documented in this encounter [facility] 04-10-2023 History of Present illness Narrative Images from the original note were not included. This note was created using Mine. Subjective Erwin Baldwin is a 28 year [...] evaluation. MUNIRA Elliott documented in this encounter [facility] 04-02-2023 Miscellaneous Notes Patient has been identified [...] Lalit Gillette LPN documented in this encounter [facility] 03-10-2023 Miscellaneous Notes Ordered. Maria T Villagomez PA-C Justine @ [facility] [place] calling to request new lab order for Vitamin C level. She ila lab today but used incorrect tube. States it needs to be re drawn. She says she contacted the patient who is willing to come back in. Pended Katarzyna Bartlett RN documented in this encounter [facility] 02-21-2023 Miscellaneous Notes Spoke with pt gave [...] after my csection. documented in this encounter [facility] 02-20-2023 Miscellaneous Notes Turned into telephone encounter documented in this encounter [facility] 10-30-2022 History of Present illness Narrative CC: [...] diet of 1000 mg/day for under 50, 4458-1823 mg/day for 50+ - HGB A1C - [...] agreed with the plan. Kaden Meyer DO [address] [place] [address] documented in this encounter [facility] 09-25-2022 History of Present illness Narrative VISIT Erwin Baldwin is a 27 year old year old here for visit. Delivery Summary:cs ROS/ Recovery: Feeding: Breast feeding problems: None Menses since delivery: spotting Menstrual pattern prior to : Regular periods [place] since delivery: Not resumed Depression: admits to [...] external genitalia normal, normal Bartholin's glands, urethra, Millbrook's glands, no vulvar lesions, no cervical lesions, [...] Ivy Jones MD documented in this encounter [facility] 08-21-2022 History of Present illness Narrative EARLY [...] issues Sleep: no sleep concerns, feels rested [place] since delivery: Not resumed Emotional support: Yes [...] Ivy Jones MD documented in this encounter [facility] 08-14-2022 History of Present illness Narrative Patient delivered via by Dr. Hernandez on 08/14/22 at [facility]. See OB history. Gracia Anne RN documented in this encounter [facility] 08-07-2022 History and physical note Pre-Op History [...] Ivy Hernandez, MD documented in this encounter [facility] 08-07-2022 History of Present illness Narrative NST SUMMARY PROVIDER ASSESSMENT AND INTERPRETATION rEwin Baldwin is a 27 year old female, , who is at 38w0d with an ALLEN of 08/21/2022, by Ultrasound dating method. Indications for NST: Diabetes - Diet Controlled and Obesity Baseline: 140 Variability: Moderate Accelerations: Present 15 X 15 Decelerations: None Contractions: TOCO: Irregular Interpretation: Category I and Reactive SIGNATURE: Ivy Jones MD documented in this encounter [facility] 08-07-2022 Miscellaneous Notes DM- Pt doing well today. Denies Vaginal Bleeding, Leaking fluid, or contractions. Pt reports good movement. Pt still requesting to proceed with primary elective cs at 39 weeks - LGA, GDMA1, unfavorable cervix. Pt reports all BS are wnl. Pre op done today. NST today. Ivy Jones MD documented in this encounter [facility] 08-07-2022 Carlos Velazquez Ma - 08/07/2022 9:14 AM EST SEQUENTIAL SCREENINGS The [facility] offers sequential screenings for women who are [...] It will require an appointment with our component technician. This is not an ultrasound performed [...] the above symptoms, contact our office at [phone] and ask to speak with a nurse. After hours, you can call doctors registry at [phone] OR call [facility] at [phone] and ask to have the doctor media sales consultant paged. If you consider this an emergency, dial 2--9 or go to your nearest emergency department. NEED HELP? Are you dealing with a violent or abusive relationship? Are you a victim of rape or sexual assult? Call [facility] ([place]) 24 hour Crisis Hotline: 162.812.8757 or 042-165-1320. MANUAL Your Guide to a Healthy manual is now on-line. Visit [email or web address] [email or web address] to download your free copy documented in this encounter [facility] 08-06-2022 Miscellaneous Notes Patient has been identified [...] for medication: Not applicable Thank you. Dina Woodruff LPN documented in this encounter [facility] 07-31-2022 History of Present illness Narrative NST [...] Ivy Jones MD documented in this encounter [facility] 07-31-2022 Miscellaneous Notes DM- Pt doing well [...] Ivy Jones MD documented in this encounter [facility] 07-31-2022 Carlos Velazquez Ma - 07/31/2022 3:32 PM EST SEQUENTIAL SCREENINGS The [facility] offers sequential screenings for women who are [...] It will require an appointment with our component technician. This is not an ultrasound performed [...] the above symptoms, contact our office at [phone] and ask to speak with a nurse. After hours, you can call doctors registry at [phone] OR call [facility] at [phone] and ask to have the doctor media sales consultant paged. If you consider this an emergency, dial 4-8-7 or go to your nearest emergency department. NEED HELP? Are you dealing with a violent or abusive relationship? Are you a victim of rape or sexual assult? Call [facility] ([place]) 24 hour Crisis Hotline: 731.934.9295 or 516-755-5081. MANUAL Your Guide to a Healthy manual is now on-line. Visit [email or web address] to download your free copy documented in this encounter [facility] 07-25-2022 Miscellaneous Notes Patient notified. Gracia Anne [...] appt. Orders placed. documented in this encounter [facility] 07-24-2022 History of Present illness Narrative documented in this encounter [facility] 07-24-2022 Miscellaneous Notes DM- Pt doing well [...] Ivy Jones MD documented in this encounter [facility] 07-24-2022 Instructions Emile Velazquez Ma - 07/24/2022 8:10 AM EDT SEQUENTIAL SCREENINGS The [facility] offers sequential screenings for women who are [...] It will require an appointment with our component technician. This is not an ultrasound performed [...] the above symptoms, contact our office at [phone] and ask to speak with a nurse. After hours, you can call doctors registry at [phone] OR call [facility] at [phone] and ask to have the doctor media sales consultant paged. If you consider this an emergency, dial 1--9 or go to your nearest emergency department. NEED HELP? Are you dealing with a violent or abusive relationship? Are you a victim of rape or sexual assult? Call [facility] ([place]) 24 hour Crisis Hotline: 505.731.8515 or 477-818-3380. MANUAL Your Guide to a Healthy manual is now on-line. Visit [email or web address] ncyGuide to download your free copy documented in this encounter [facility] 07-23-2022 Miscellaneous Notes ordered 35w6d Patient has a growth u/s tomorrow. Please file order. Gracia Anne RN documented in this encounter [facility] 07-18-2022 Miscellaneous Notes OK to continue to monitor as long as able to urinate and pain not severe. Increase hydration and do not hold bladder for long periods of time. Thank you, Jeninfer Delaney APRN.CNM 35w1d Patient 34w6d, last seen 07/10. Next appointment 07/24. Tiffanie Roque RN documented in this encounter [facility] 07-17-2022 Miscellaneous Notes Patient notified and voiced understanding of below information and instructions. Tiffanie Roque RN Left message to call office. Tiffanie Roque RN Results reviewed with DM. Will wait to see culture results. Please notify patient of dehydration and the need to increase water and fluids. Maria Teresa Stephen APRN.CNM [facility] calling with critical value results on UA that was done this morning. Patients Ketones are 150. UA results to provider to review. Patient 35w0d. Maria Teresa, is patient still at L&D? Tiffanie Roque RN documented in this encounter [facility] 07-10-2022 Miscellaneous Notes DM- Pt doing well today. Denies Vaginal Bleeding, Leaking fluid, or contractions. Pt reports good movement. Has growth scheduled at 36 weeks. BS log reviewed- overall well controlled. Kick counts reviewed. RTO 2 wks. Ivy Jones MD documented in this encounter [facility] 07-10-2022 Instructions Emile Velazquez Ma - 07/10/2022 8:59 AM EDT SEQUENTIAL SCREENINGS The [facility] offers sequential screenings for women who are [...] It will require an appointment with our component technician. This is not an ultrasound performed [...] the above symptoms, contact our office at [phone] and ask to speak with a nurse. After hours, you can call doctors registry at [phone] OR call [facility] at [phone] and ask to have the doctor media sales consultant paged. If you consider this an emergency, dial 9-1-1 or go to your nearest emergency department. NEED HELP? Are you dealing with a violent or abusive relationship? Are you a victim of rape or sexual assult? Call [facility] [place] ([facility] 24 hour Crisis Hotline: 541.107.2772 or 131-473-8553. MANUAL Your Guide to a Healthy manual is now on-line. Visit [email or web address] ncyGuide to download your free copy documented in this encounter [facility] 06-14-2022 Miscellaneous Notes DM- Pt doing well today. Denies Vaginal Bleeding, Leaking fluid, or contractions. Pt reports good movement. Growth us scheduled. GDMA 1 reviewed- BS well controlled. Continue to monitor. RTO 2 weeks. Kick counts reviewed. Flu vaccine today. Ivy Jones MD documented in this encounter [facility] 06-14-2022 Instructions Emile Velazquez Md - 06/14/2022 10:43 AM EDT SEQUENTIAL SCREENINGS The [facility] offers sequential screenings for women who are [...] It will require an appointment with our component technician. This is not an ultrasound performed [...] the above symptoms, contact our office at [phone] and ask to speak with a nurse. After hours, you can call doctors registry at [phone] OR call [facility] at [phone] and ask to have the doctor media sales consultant paged. If you consider this an emergency, dial -0 or go to your nearest emergency department. NEED HELP? Are you dealing with a violent or abusive relationship? Are you a victim of rape or sexual assult? Call [facility] ([place]) 24 hour Crisis Hotline: 855.947.5538 or 206-662-4975. MANUAL Your Guide to a Healthy manual is now on-line. Visit [email or web address] ncyGuide to download your free copy documented in this encounter [facility] 06-12-2022 History of Present illness Narrative DIABETES CARE AND EDUCATION VISIT Location: [place] Type of visit: In person individual PATIENT'S [...] via access to shared medical record. SIGNATURE: George Wade RN PATIENT NAME: Erwin Baldwin DATE: June 12, 2022 TIME: 3:29 PM PAGER: documented in this encounter [facility] 06-11-2022 History of Past i llness Narrative Problem Noted Date Resolved Date Gestational diabetes mellitus, class A1 06/11/20 22 09/25/2022 Low-lying placenta 03/28/2022 05/29/2022 Routine physical examination 06/19/2018 Ovarian cyst 07/25/2013 08/11/2015 documented as of this encounter (statuses as of 09/26/2022) [facility] History of Past illness Narrative* Problem Noted Date Resolved Date Gestational diabetes mellitus, class A1 06/11/20 22 09/25/2022 Low-lying placenta 03/28/2022 05/29/2022 Routine physical examination 06/19/2018 Ovarian cyst 07/25/2013 08/11/2015 documented as of this encounter (statuses as of 10/30/2022) [address]20-2022 History of Past illness Narrative* Problem Noted Date Resolved Date Gestational diabetes mellitus, class A1 06/11/20 22 09/25/2022 Low-lying placenta 03/28/2022 05/29/2022 Routine physical examination 06/19/2018 Ovarian cyst 07/25/2013 08/11/2015 documented as of this encounter (statuses as of 02/20/2023) [address]20-2022 History of Past illness Narrative* Problem Noted Date Resolved Date Gestational diabetes mellitus, class A1 06/11/20 22 09/25/2022 Low-lying placenta 03/28/2022 05/29/2022 Routine physical examination 06/19/2018 Ovarian cyst 07/25/2013 08/11/2015 documented as of this encounter (statuses as of 02/21/2023) [facility] History of Past illness Narrative* Problem Noted Date Resolved Date Gestational diabetes mellitus, class A1 06/11/20 22 09/25/2022 Low-lying placenta 03/28/2022 05/29/2022 Routine physical examination 06/19/2018 Ovarian cyst 07/25/2013 08/11/2015 documented as of this encounter (statuses as of 03/10/2023) [address]20-2022 History of Past illness Narrative* Problem Noted Date Diagnosed Date Resolved Date Gestational diabetes mellitus, class A1 06/11/2022 09/25/2022 Low-lying placenta 03/28/2022 Routine physical examination 06/19/2018 10/15/2018 Ovarian cyst 07/25/2013 08/11/2015 documented as of this encounter (statuses as of 04/04/2023) [address]20-2022 History of Past illness Narrative* Problem Noted Date Diagnosed Date Resolved Date Gestational diabetes mellitus, class A1 06/11/2022 09/25/2022 Low-lying placenta 03/28/2022 2 Routine physical examination 06/19/2018 10/15/2018 Ovarian cyst 07/25/2013 08/11/2015 documented as of this encounter (statuses as of 04/11/2023) [address]20-2022 History of Past illness Narrative* Problem Noted Date Diagnosed Date Resolved Date Gestational diabetes mellitus, class A1 06/11/2022 09/25/2022 Low-lying placenta 03/28/2022 2 Routine physical examination 06/19/2018 10/15/2018 Ovarian cyst 07/25/2013 08/11/2015 documented as of this encounter (statuses as of 05/21/2023) [address]20-2022 History of Past illness Narrative* Problem Noted Date Diagnosed Date Resolved Date Gestational diabetes mellitus, class A1 06/11/2022 09/25/2022 Low-lying placenta 03/28/2022 2 Routine physical examination 06/19/2018 10/15/2018 Ovarian cyst 07/25/2013 08/11/2015 documented as of this encounter (statuses as of 05/21/2023) [address]20-2022 History of Past illness Narrative* Problem Noted Date Diagnosed Date Resolved Date Gestational diabetes mellitus, class A1 06/11/2022 09/25/2022 Low-lying placenta 03/28/2022 2 Routine physical examination 06/19/2018 10/15/2018 Ovarian cyst 07/25/2013 08/11/2015 documented as of this encounter (statuses as of 06/08/2023) [address]20-2022 History of Past illness Narrative* Problem Noted Date Diagnosed Date Resolved Date Gestational diabetes mellitus, class A1 06/11/2022 09/25/2022 Low-lying placenta 03/28/2022 2 Routine physical examination 06/19/2018 10/15/2018 Ovarian cyst 07/25/2013 08/11/2015 documented as of this encounter (statuses as of 06/10/2023) [address]20-2022 History of Past illness Narrative* Problem Noted Date Diagnosed Date Resolved Date Gestational diabetes mellitus, class A1 06/11/2022 09/25/2022 Low-lying placenta 03/28/2022 2 Routine physical examination 06/19/2018 10/15/2018 Ovarian cyst 07/25/2013 08/11/2015 documented as of this encounter (statuses as of 06/21/2023) [address]20-2022 History of Past illness Narrative* Problem Noted Date Diagnosed Date Resolved Date Gestational diabetes mellitus, class A1 06/11/2022 09/25/2022 Low-lying placenta 03/28/2022 2 Routine physical examination 06/19/2018 10/15/2018 Ovarian cyst 07/25/2013 08/11/2015 documented as of this encounter (statuses as of 08/02/2023) [address]20-2022 History of Past illness Narrative* Problem Noted Date Diagnosed Date Resolved Date Gestational diabetes mellitus, class A1 06/11/2022 09/25/2022 Low-lying placenta 03/28/2022 2 Routine physical examination 06/19/2018 10/15/2018 Ovarian cyst 07/25/2013 08/11/2015 documented as of this encounter (statuses as of 09/02/2023) [address]20-2022 History of Past illness Narrative* Problem Noted Date Diagnosed Date Resolved Date Gestational diabetes mellitus, class A1 06/11/2022 09/25/2022 Low-lying placenta 03/28/2022 2 Routine physical examination 06/19/2018 10/15/2018 Ovarian cyst 07/25/2013 08/11/2015 documented as of this encounter (statuses as of 11/26/2023) [address]20-2022 History of Past illness Narrative* Problem Noted Date Diagnosed Date Resolved Date Gestational diabetes mellitus, class A1 06/11/2022 09/25/2022 Low-lying placenta 03/28/2022 2 Routine physical examination 06/19/2018 10/15/2018 Ovarian cyst 07/25/2013 08/11/2015 documented as of this encounter (statuses as of 12/01/2023) [address]20-2022 History of Past illness Narrative* Problem Noted Date Diagnosed Date Resolved Date Gestational diabetes mellitus, class A1 06/11/2022 09/25/2022 Low-lying placenta 03/28/2022 2 Routine physical examination 06/19/2018 10/15/2018 Ovarian cyst 07/25/2013 08/11/2015 documented as of this encounter (statuses as of 12/04/2023) [facility]20[facility]2022 Miscellaneous Notes* Telephone Encounter - Gracia Anne [...] Arrange for Diabetic teaching. documented in this encounterK[facility] Miscellaneous Notes* Quick Notes - Ivy Hernandez MD - 05/29/2022 9:11 AM EDT DM- Pt doing well today. Denies Vaginal Bleeding, Leaking fluid, or contractions. Pt reports good movement. 28 week labs today. Growth today- Placenta Fundal. Growth 94%. Will restart Zoloft due to anxiety. [facility] signed and declined- MIRNEA at 8 weeks PP. Tdap today. Ivy Jones MD documented in this encounterK[facility] History of Present illness Narrative* Emile Velazquez [...] severely ill: Yes Patient denies history of Guillain-[place] Syndrome (a severe paralytic illness): Yes Tdap Adacel injection was given without incident. See immunizations for details of immunizations administered today. VIS sheet provided: Yes Provider Mary was present in office at time of injection. Emile Velazquez Ma documented in this encounterK[facility]09-07-2022 Instructions* Patient Instructions* Emile Velazquez Ma - 05/29/2022 8:13 AM EDT SEQUENTIAL SCREENINGS The [facility] offers sequential screenings for women who are [...] testing. It will require an appointment withour component technician. This is not an ultrasound performed [...] the above symptoms, contact our office at [phone] and ask to speak with anurse. After hours, you can call doctors registry at [phone] OR call [facility] at [phone] ask to have the doctor media sales consultant paged. If you consider this an emergency, dial 9-1-4 or go to your nearest emergency department. NEED HELP? Are you dealing with a violent or abusive relationship? Are you a victim of rape or sexual assult? Call [facility] ([place]) 24 hour Crisis Hotline: 674.564.2568 or 288-402-8540. MANUAL Your Guide to a Healthy manual is now on-line. Visit [email or web address] to download your free copy documented in this encounterK[facility]07-12-2022 Miscellaneous Notes* Telephone Encounter - Gracia Anne RN - 04/02/2022 9:22 AM EDT Order signed by EDIN and faxed. Gracia Anne RN * Telephone Encounter - Gracia Anne RN - 04/01/2022 2:55 PM EDT Breast pump order received from [employer]. To DM to sign. Gracia Anne RN documented in this encounterK[facility]07-[facility]-2022 Miscellaneous Notes* Quick Notes - Ivy Hernandez MD - 03/28/2022 3:55 PM EDT DM- Pt doing well today. Denies Vaginal Bleeding, Leaking fluid, or contractions. Reports +FM. Low lying placenta- reviewed restrictions. Repeat ultrasound 6-8 weeks to check location. Restarting Zoloft. RTO 4 wks. Vit D and TSH ordered today. Ivy Jones MD documented in this encounterK[facility]07-07-2022 Instructions* Patient Instructions* Evelyn Riggs MA - 03/28/2022 3:33 PM EDT SEQUENTIAL SCREENINGS The [facility] offers sequential screenings for women who are [...] testing. It will require an appointment withour component technician. This is not an ultrasound performed [...] the above symptoms, contact our office at [phone] and ask to speak with anurse. After hours, you can call doctors registry at [phone] OR call [facility] at [phone] ask to have the doctor media sales consultant paged. If you consider this an emergency, dial 9--1 or go to your nearest emergency department. NEED HELP? Are you dealing with a violent or abusive relationship? Are you a victim of rape or sexual assult? Call [facility] ([place]) 24 hour Crisis Hotline: 169.318.3686 or 800-418-5131. MANUAL Your Guide to a Healthy manual is now on-line. Visit [email or web address] to download your free copy documented in this encounterK[facility]07-[facility]-2022 History of Past illness Narrative* Problem Noted Date Resolved Date Low-lying placenta 03/28/2022 05/29/2022 Routine physical examination 06/19/2018 Ovarian cyst 07/25/2013 08/11/2015 documented as of this encounter (statuses as of 05/29/2022) [address]07-2022 History of Past illness Narrative* Problem Noted Date Resolved Date Low-lying placenta 03/28/2022 05/29/2022 Routine physical examination 06/19/2018 Ovarian cyst 07/25/2013 08/11/2015 documented as of this encounter (statuses as of 05/29/2022) [facility] History of Past illness Narrative* Problem Noted Date Resolved Date Low-lying placenta 03/28/2022 05/29/2022 Routine physical examination 06/19/2018 Ovarian cyst 07/25/2013 08/11/2015 documented as of this encounter (statuses as of 06/06/2022) [facility] History of Past illness Narrative* Problem Noted Date Resolved Date Low-lying placenta 03/28/2022 05/29/2022 Routine physical examination 06/19/2018 Ovarian cyst 07/25/2013 08/11/2015 documented as of this encounter (statuses as of 06/11/2022) [address]07-2022 History of Past illness Narrative* Problem Noted Date Resolved Date Low-lying placenta 03/28/2022 05/29/2022 Routine physical examination 06/19/2018 Ovarian cyst 07/25/2013 08/11/2015 documented as of this encounter (statuses as of 06/12/2022) [address]07-2022 History of Past illness Narrative* Problem Noted Date Resolved Date Low-lying placenta 03/28/2022 05/29/2022 Routine physical examination 06/19/2018 Ovarian cyst 07/25/2013 08/11/2015 documented as of this encounter (statuses as of 06/14/2022) [address]2022 History of Past illness Narrative* Problem Noted Date Resolved Date Low-lying placenta 03/28/2022 05/29/2022 Routine physical examination 06/19/2018 Ovarian cyst 07/25/2013 08/11/2015 documented as of this encounter (statuses as of 07/10/2022) [address]07-2022 History of Past illness Narrative* Problem Noted Date Resolved Date Low-lying placenta 03/28/2022 05/29/2022 Routine physical examination 06/19/2018 Ovarian cyst 07/25/2013 08/11/2015 documented as of this encounter (statuses as of 07/17/2022) [address]07-2022 History of Past illness Narrative* Problem Noted Date Resolved Date Low-lying placenta 03/28/2022 05/29/2022 Routine physical examination 06/19/2018 Ovarian cyst 07/25/2013 08/11/2015 documented as of this encounter (statuses as of 07/18/2022) [address]07-2022 History of Past illness Narrative* Problem Noted Date Resolved Date Low-lying placenta 03/28/2022 05/29/2022 Routine physical examination 06/19/2018 Ovarian cyst 07/25/2013 08/11/2015 documented as of this encounter (statuses as of 07/23/2022) [address]07-2022 History of Past illness Narrative* Problem Noted Date Resolved Date Low-lying placenta 03/28/2022 05/29/2022 Routine physical examination 06/19/2018 Ovarian cyst 07/25/2013 08/11/2015 documented as of this encounter (statuses as of 07/24/2022) [address]07-2022 History of Past illness Narrative* Problem Noted Date Resolved Date Low-lying placenta 03/28/2022 05/29/2022 Routine physical examination 06/19/2018 Ovarian cyst 07/25/2013 08/11/2015 documented as of this encounter (statuses as of 07/24/2022) [facility] of Past illness Narrative* Problem Noted Date Resolved Date Low-lying placenta 03/28/2022 05/29/2022 Routine physical examination 06/19/2018 Ovarian cyst 07/25/2013 08/11/2015 documented as of this encounter (statuses as of 07/25/2022) [facility] History of Past illness Narrative* Problem Noted Date Resolved Date Low-lying placenta 03/28/2022 05/29/2022 Routine physical examination 06/19/2018 Ovarian cyst 07/25/2013 08/11/2015 documented as of this encounter (statuses as of 07/31/2022) [facility] History of Past illness Narrative* Problem Noted Date Resolved Date Low-lying placenta 03/28/2022 05/29/2022 Routine physical examination 06/19/2018 Ovarian cyst 07/25/2013 08/11/2015 documented as of this encounter (statuses as of 08/07/2022) [facility] History of Past illness Narrative* Problem Noted Date Resolved Date Low-lying placenta 03/28/2022 05/29/2022 Routine physical examination 06/19/2018 Ovarian cyst 07/25/2013 08/11/2015 documented as of this encounter (statuses as of 08/08/2022) [facility] of Past illness Narrative* Problem Noted Date Resolved Date Low-lying placenta 03/28/2022 05/29/2022 Routine physical examination 06/19/2018 Ovarian cyst 07/25/2013 08/11/2015 documented as of this encounter (statuses as of 08/14/2022) [facility] History of Past illness Narrative* Problem Noted Date Resolved Date Low-lying placenta 03/28/2022 05/29/2022 Routine physical examination 06/19/2018 Ovarian cyst 07/25/2013 08/11/2015 documented as of this encounter (statuses as of 08/21/2022) [facility] History of Present illness Narrative* Katt Singh APRN.[employer] - 03/20/2022 5:40 PM EDT Chief Complaint [...] might happen 0 Not at all sure EMILEE-7 Anxiety Score 8 If you checked off [...] this plan of care with Dr. Hernandez, OB-SIGN PAINTER. Follow-up in about 6 weeks and let me know how mood is. - Message sent to OB team. - SERTRALINE 25 MG TABLET RTO as needed in 6 weeks. Prescription instructions reviewed with patient as applicable. Potential red flag symptoms discussed with the patient. Reviewed appropriate action plan to take if red flag symptoms occur. Patient agreeable to treatment plan. Katt Singh APRN.CNP [address] [place] [address] documented in this encounterKet[facility]06-08-2022 Miscellaneous Notes* Quick Notes - Ivy Hernandez MD - 02/27/2022 11:06 AM EDT DM- Pt doing well today. Denies Vaginal Bleeding, Leaking fluid, or cramping. Improvement in N/V. Anatomy us scheduled. RTO 4 wks. Ivy Jones MD documented in this encounterKet[facility]06-08-2022 Instructions* Patient Instructions* Emile Marcus Mack - 02/27/2022 10:54 AM EDT SEQUENTIAL SCREENINGS The [facility] offers sequential screenings for women who are [...] testing. It will require an appointment withour component technician. This is not an ultrasound performed [...] the above symptoms, contact our office at [phone] and ask to speak with anurse. After hours, you can call doctors registry at [phone] OR call [facility] at [phone] ask to have the doctor media sales consultant paged. If you consider this an emergency, dial 9-1-1 or go to your nearest emergency department. NEED HELP? Are you dealing with a violent or abusive relationship? Are you a victim of rape or sexual assult? Call [facility] ([facility] 24 hour Crisis Hotline: 849.535.1964 or 801-282-5030. MANUAL Your Guide to a Healthy manual is now on-line. Visit [email or web address] to download your free copy documented in this encounterK[facility]05-16-2022 Miscellaneous Notes* Telephone Encounter - Gracia Anne RN - 02/04/2022 10:35 AM EDT Patient notified. Gracia Anne RN The following approved medication requests have been transmitted electronically. Signed Prescriptions Disp Refills promethazine (PHENERGAN) 12.5 mg tablet 30 tablet 0 Sig: Take 1-2 tablets by mouth every 6 hours as needed. Authorizing Provider: IVY ALBARRAN Pharmacy Information Pharmacy Address [facility] #[id number] [address] [place] [address] * Telephone Encounter - Ivy Hernandez MD [...] advise. Gracia Anne RN documented in this encounterK[facility]05-11-2022 Miscellaneous Notes* Quick Notes - Ivy Hernandez MD - 01/30/2022 4:21 PM EDT DM- Pt doing well today. Denies Vaginal Bleeding, Leaking fluid, or cramping. Has Nausea but no vomiting. Declines NT or Maternity 21. Anatomy us ordered. New OB labs today. RTO 4 wks. Ivy Jones MD documented in this encounterKettering [facility] Hospital05-11-2022 Instructions* Patient Instructions* Emile Velazquez Frederick - 01/30/2022 4:09 PM EDT SEQUENTIAL SCREENINGS The [facility] offers sequential screenings for women who are [...] testing. It will require an appointment withour component technician. This is not an ultrasound performed [...] the above symptoms, contact our office at [phone] and ask to speak with anurse. After hours, you can call doctors registry at [phone] OR call [facility] at [phone] ask to have the doctor media sales consultant paged. If you consider this an emergency, dial 9--1 or go to your nearest emergency department. NEED HELP? Are you dealing with a violent or abusive relationship? Are you a victim of rape or sexual assult? Call [facility] ([place]) 24 hour Crisis Hotline: 479.678.4759 or 699-555-3905. MANUAL Your Guide to a Healthy manual is now on-line. Visit [email or web address] to download your free copy documented in this encounterK[facility]04-06-2022 Miscellaneous Notes* Telephone Encounter - Gracia Anne [...] instructions. Gracia Anne RN documented in this encounterK[facility] Hospital03-24-2022 Miscellaneous Notes* Telephone Encounter - Lucille Holbrook [...] her to have these rechecked as an lobby concierge blood draw (by 9 am) to see [...] draw. Kaden Meyer DO documented in this encounterK[facility]09-28-2018 History of Past illness Narrative* Problem Noted Date Resolved Date Routine physical examination 06/19/2018 Ovarian cyst 07/25/2013 08/11/2015 documented as of this encounter (statuses as of 12/26/2021) [facility] of Past illness Narrative* Problem Noted Date Resolved Date Routine physical examination 06/19/2018 Ovarian cyst 07/25/2013 08/11/2015 documented as of this encounter (statuses as of 12/27/2021) [facility] of [facility] illness Narrative* Problem Noted Date Resolved Date Routine physical examination 06/19/2018 Ovarian cyst 07/25/2013 08/11/2015 documented as of this encounter (statuses as of 01/04/2022) [facility] Narrative* Problem Noted Date Resolved Date Routine physical examination 06/19/2018 Ovarian cyst 07/25/2013 08/11/2015 documented as of this encounter (statuses as of 01/09/2022) [facility] of [facility] Narrative* Problem Noted Date Resolved Date Routine physical examination 06/19/2018 Ovarian cyst 07/25/2013 08/11/2015 documented as of this encounter (statuses as of 01/30/2022) [facility] of [facility] Narrative* Problem Noted Date Resolved Date Routine physical examination 06/19/2018 Ovarian cyst 07/25/2013 08/11/2015 documented as of this encounter (statuses as of 02/04/2022) [facility] Narrative* Problem Noted Date Resolved Date Routine physical examination 06/19/2018 Ovarian cyst 07/25/2013 08/11/2015 documented as of this encounter (statuses as of 02/27/2022) [facility] of [facility] illness Narrative* Problem Noted Date Resolved Date Routine physical examination 06/19/2018 Ovarian cyst 07/25/2013 08/11/2015 documented as of this encounter (statuses as of 03/20/2022) [facility] of [facility] Narrative* Problem Noted Date Resolved Date Routine physical examination 06/19/2018 Ovarian cyst 07/25/2013 08/11/2015 documented as of this encounter (statuses as of 03/28/2022) [facility] of [facility] Narrative* Problem Noted Date Resolved Date Routine physical examination 06/19/2018 Ovarian cyst 07/25/2013 08/11/2015 documented as of this encounter (statuses as of 03/28/2022) [facility] Narrative* Problem Noted Date Resolved Date Routine physical examination 06/19/2018 Ovarian cyst 07/25/2013 08/11/2015 documented as of this encounter (statuses as of 04/01/2022) [facility] Narrative* Problem Noted Date Resolved Date Routine physical examination 06/19/2018 Ovarian cyst 07/25/2013 08/11/2015 documented as of this encounter (statuses as of 04/02/2022) [facility] note* Diagnosis High serum testosterone- Primary [facility]* Diagnosis with uncertain dates in first trimester- Primary [facility]* Diagnosis Encounter for supervision of normal first in first trimester- Primary Supervision of normal first 11 weeks gestation of state, incidental [facility] noteNo assessment information availableWSt. Francis Hospital Work Phone: Evaluation note* Diagnosis Encounter for supervision of normal first in second trimester- Primary Supervision of normal first 15 weeks gestation of state, incidental [facility]* Diagnosis EMILEE (generalized anxiety disorder)- Primary Generalized anxiety disorder [facility]* Diagnosis Low-lying placenta- Primary Hemorrhage from placenta previa, unspecified as to episode of care 19 weeks gestation of state, incidental Vitamin D deficiency Unspecified vitamin D deficiency History of thyroid nodule Personal history of other endocrine, metabolic, and immunity disorders [facility]* Diagnosis Encounter for anatomic survey- Primary 19 weeks gestation of state, incidental Obesity complicating , second trimester [facility]* Diagnosis Suspected placental problem not found- Primary 28 weeks gestation of state, incidental [facility]* Diagnosis 28 weeks gestation of - Primary state, incidental Excessive growth affecting management of in third trimester, single or unspecified fetus Need for vaccination Need for prophylactic vaccination and inoculation against unspecified single disease EMILEE (generalized anxiety disorder) Generalized anxiety disorder History of COVID-19 COVID-19 affecting in third trimester [facility]* Diagnosis Abnormal maternal glucose tolerance, antepartum- Primary [facility]* Diagnosis Abnormal maternal glucose tolerance, antepartum [facility]* Diagnosis Gestational diabetes mellitus, class A1- Primary Abnormal maternal glucose tolerance, complicating , childbirth, or the puerperium, unspecified as to episode of care 30 weeks gestation of state, incidental Need for influenza vaccination Need for prophylactic vaccination and inoculation against influenza [facility]* Diagnosis Gestational diabetes mellitus, class A1- Primary Abnormal maternal glucose tolerance, complicating , childbirth, or the puerperium, unspecified as to episode of care Excessive growth affecting management of in third trimester, single or unspecified fetus 34 weeks gestation of state, incidental [facility]* Diagnosis Gestational diabetes mellitus, class A1- Primary Abnormal maternal glucose tolerance, complicating , childbirth, or the puerperium, unspecified as to episode of care [facility] Diagnosis Gestational diabetes mellitus, class A1- [...] of state, incidental [facility] Diagnosis Gestational diabetes mellitus, class A1- Primary Abnormal maternal glucose tolerance, complicating , childbirth, or the puerperium, unspecified as to episode of care 36 weeks gestation of state, incidental Macrosomia Exceptionally large baby relating to long gestation [facility] Diagnosis Gestational diabetes mellitus, class A1- [...] of state, incidental [facility] Diagnosis Gestational diabetes mellitus, class [...] of state, incidental [facility] Diagnosis EMILEE (generalized anxiety disorder) Generalized anxiety disorder [facility] Diagnosis Onset Date Resolution Status Back pain affecting acute Acute blood loss anemia acut e Lactating mother acute Postoperative pain acute S/P primary low transverse acute [facility] Work Phone: Evaluation note* Diagnosis care and examination immediately after delivery- Primary [facility] Diagnosis care and examination- Primary Routine follow-up EMILEE (generalized anxiety disorder) Generalized anxiety disorder History of gestational diabetes Personal history of gestational diabetes [facility] Diagnosis Well adult exam- Primary Routine general medical examination at a health care facility EMILEE (generalized anxiety disorder) Generalized anxiety disorder Hypothyroidism, acquired Unspecified hypothyroidism [facility] Diagnosis Easy bruising- Primary Other symptoms involving skin and integumentary tissues Fatigue, unspecified type [facility] Diagnosis Easy bruising- Primary Other symptoms involving skin and integumentary tissues Fatigue, unspecified type [facility] Diagnosis Skin lesion- Primary Unspecified disorder of skin and subcutaneous tissue [facility] Diagnosis Jaw pain- Primary Lymphadenopathy, submandibular Enlargement of lymph nodes Yeast infection of the skin Candidiasis of skin and nails [facility] Diagnosis Viral illness- Primary Unspecified viral infection, in conditions classified elsewhere and of unspecified site [facility] Diagnosis Encounter for gynecological examination (general) (routine) without abnormal findings- Primary Screening for cervical cancer Screening for malignant neoplasm of the cervix [facility]* Diagnosis Well adult exam- Primary Routine general medical examination at a health care facility Pain in both hands EMILEE (generalized anxiety disorder) Generalized anxiety disorder Class 1 obesity with body mass index (BMI) of 32.0 to 32.9 in adult, unspecified obesity type, unspecified whether serious comorbidity present [facility] Diagnosis Early stage of - Primary state, incidental [facility] Diagnosis Easy bruising- Primary Other symptoms involving skin and integumentary tissues [facility]* Diagnosis Respiratory infection- Primary Other diseases of respiratory system, not elsewhere classified [place] eye disease of right eye [facility]* Diagnosis Female infertility- Primary Female infertility of unspecified origin [facility] Diagnosis URI, acute- Primary Acute upper respiratory infections of unspecified site Fever, unspecified fever cause Acute cough Nausea Nausea alone [facility] Diagnosis Dysmenorrhea- Primary Excessive bleeding in premenopausal period Premenopausal menorrhagia Female infertility Female infertility of unspecified origin [facility] Diagnosis Dysmenorrhea- Primary Excessive bleeding in premenopausal period Premenopausal menorrhagia Arcuate uterus [facility] Diagnosis Female infertility- Primary Female infertility of unspecified origin [facility] Diagnosis Well adult exam- Primary Routine general medical examination at a health care facility [facility] Diagnosis Encounter for test, result positive (HCC)- Primary examination or test, positive result [facility]* Diagnosis Early stage of (HCC)- Primary state, incidental [facility] Diagnosis Encounter for supervision of normal in multigravida, antepartum (HCC)- Primary History of gestational diabetes in prior , currently ([facility]) with other poor obstetric history with uncertain dates in first trimester ([facility]) Screen for STD (sexually transmitted disease) Screening examination for venereal disease 8 weeks gestation of ([facility]) state, incidental BMI 34.0-34.9,adult Body Mass Index 34.0-34.9, adult size inconsistent with dates ([facility]) documented in this encounter [facility] note* Diagnosis Female infertility- Primary Female infertility of unspecified origin documented in this encounter [facility] note* Diagnosis Encounter for supervision of normal in multigravida, antepartum ([facility])- Primary 12 weeks gestation of ([facility]) state, incidental Obesity affecting in first trimester, unspecified obesity type ([facility]) documented in this encounter [facility] note* Diagnosis Encounter for ultrasound to check growth ([facility])- Primary Encounter for routine screening for malformation using ultrasonics 12 weeks gestation of ([facility]) state, incidental documented in this encounter [facility] note* Diagnosis Nausea Nausea alone documented in this encounter [facility] note* Diagnosis Encounter for supervision of normal in multigravida, antepartum ([facility])- Primary Prior macrosomia, antepartum, second trimester ([facility]) 17 weeks gestation of ([facility]) state, incidental * Assessment & Plan Note - Ivy Albarran MD - 04/04/2025 8:22 AM EDT Associated Problem(s): Encounter for supervision of normal in multigravida, antepartum ([facility]) documented in this encounter [facility] note* Diagnosis Encounter for supervision of normal in multigravida, antepartum (HCC)- Primary Prior macrosomia, antepartum, second trimester (HCC) 17 weeks gestation of ([facility]) state, incidental Encounter for anatomic survey ([facility])- Primary Encounter for anatomic survey 18 weeks gestation of ([facility]) state, incidental documented in this encounter [facility] note* Diagnosis Encounter for supervision of normal [...] of gestational diabetes in prior , currently ([facility]) documented in this encounter [facility] note* Diagnosis Encounter for supervision of normal [...] multigravida, antepartum (HCC) [facility] Encounter for supervision of normal [...] poor obstetric history 21 weeks gestation of ([facility]) state, incidental Encounter for supervision of other normal in second trimester (HCC) Prior macrosomia, antepartum, second trimester (HCC) Obesity affecting in first trimester, unspecified obesity type ([facility]) Screening for diabetes mellitus 25 weeks gestation of ([facility]) state, incidental Encounter for supervision of normal in multigravida, antepartum (HCC)- Primary 27 weeks gestation of ([facility]) state, incidental headache in second trimester (HCC) Vitreous floaters of both eyes [facility] Additional Instructions Plenty of fluids and rest. Increase your diet slowly as tolerated. Follow-up with your FACS TEACHER as needed. Zofran as needed for nausea. You may swallow or let dissolve under your tongue. [facility] Work Phone: Reason for referral (narrative)* Diagnostic Procedure Only (Routine) - Pending Review Specialty Diagnoses / Procedures Referred By Silva torres Referred To Contact [facility] Diagnoses Encounter for supervision of normal first in first trimester Procedures OBSTETRIC ULTRASOUND WHI US PREG UTERUS AFTER 1ST TRIMEST GESTATION Ivy Albarran MD [address] [place] [address] [facility] [address] [place] [address] Referral ID Status Reason Start Date Expiration Date Visits Requested Visits Authorized [id number] Pending Review Auto-Generat ed Referral 01/30/2022 01/30/2023 1 1 [facility] for referral (narrative)* Diagnostic Procedure Only (Routine) - Pending Review Specialty Diagnoses / Procedures Referred By Contac t Referred To Contact [facility] Diagnoses 19 weeks gestation of Low-lying placenta Procedures OBSTETRIC ULTRASOUND WHI US PREG UTERUS AFTER 1ST TRIMEST GESTATION Ivy Albarran MD [address] [place] [address] [facility] [place] [address] [place] [id number] Referral ID Status Reason Start Date Expiration Date Visits Requested Visits Authorized [id number] Pending Review Auto-Generat ed Referral 03/28/2022 03/28/2023 1 1 [facility] for referral (narrative)* Diagnostic Procedure Only (Routine) - Open Specialty Diagnoses / Procedures Referred By Contac t Referred To Contact [facility] Diagnoses Excessive growth affecting management of in third trimester, single or unspecified fetus History of COVID-19 Procedures OBSTETRIC ULTRASOUND WHI US PREG UTERUS AFTER 1ST TRIMEST GESTATION Ivy Albarran MD [address] [place] [address] [facility] [place] [address] [place] [address] Referral ID Status Reason Start Date Expiration Date V isits Requested Visits Authorized [id number] Open Auto-Generate d Referral 05/29/2022 05/29/2023 1 1 [facility] for referral (narrative)* Diagnostic Procedure Only (Routine) - Additional Clinical Info Needed Specialty Diagnoses / Procedures Referred By Contac t Referred To Contact [facility] Diagnoses Gestational diabetes mellitus, class A1 Procedures OBSTETRIC ULTRASOUND WHI US PREG UTERUS AFTER 1ST TRIMEST GESTATION Ivy Albarran MD [address] [place] [address] [facility] [place] [address] [place] [address] Referral ID Status Reason Start Date Expiration Date Visits Requested Visits Authorized [id number] Additional Clinical Info Needed Auto-Generat ed Referral 07/23/2022 07/23/2023 1 1 [facility] for referral (narrative)* Outpatient Procedure (Routine) - Pending Review Specialty Diagnoses / Procedures Referred By Contac t Referred To Contact [facility] Diagnoses Gestational diabetes mellitus, class A1 Obesity in Procedures NON-STRESS TEST NON-STRESS TEST Ivy Albarran MD [address] [place] [address] [facility] [place] [address] [place] [address] Referral ID Status Reason Start Date Expiration Date Visits Requested Visits Authorized [id number] Pending Review Auto-Generat ed Referral 07/24/2022 07/24/2023 1 1 [facility] for referral (narrative)* Diagnostic Procedure Only (Routine) - New Request Specialty Diagnoses / Procedures Referred By Contac t Referred To Contact [facility] Diagnoses Dysmenorrhea Excessive bleeding in premenopausal period Procedures PELVIC US WHI US PELVIC NONOBSTETRIC REAL-TIME IMAGE COMPLETE Iyv Albarran MD [address] [place] [address] [facility] [place] [address] [place] [address] Referral ID Status Reason Start Date Expiration Date Visits Requested Visits Authorized [id number] New Request Auto-Generat ed Referral 10/14/2024 10/14/2025 1 1 [facility] for visit Narrative* Diagnostic Procedure Only (Routine) - Closed Specialty Diagnoses / Procedures Referred By Silva torres Referred To Contact [facility] Diagnoses Dysmenorrhea Excessive bleeding in premenopausal period Procedures PELVIC US WHI US PELVIC NONOBSTETRIC REAL-TIME IMAGE COMPLETE Ivy Albarran MD [address] [place] [address] [facility] [place] [address] [facility] [place] [address] Referral ID Status Reason Start Date Expiration Date V isits Requested Visits Authorized [id number] Closed Auto-Generate d Referral 10/15/2024 09/21/2025 1 1 [facility] Concerns Problem Noted Date OB Reminders [...] February 04, 2022 3 :49pm Power of Manifold Operator No February 04, 2022 3:49pm Advance Directive Response Recorded Date/ Time Living Will No August 14 10:01am Power of Manifold Operator No August 14, 2022 10:01am Reason for Referral Specialty Diagnoses / Procedures Referred By Silva torres Referred To Contact Diagnoses Abnormal maternal glucose tolerance, antepartum Procedures CONSULT TO DIABETES EDUCATION OFFICE/OUTPATIENT [facility] 60-74 MINUTES Ivy Albarran MD [address] [place] [address] Referral ID Status Reason Start Date Expiration Date Visits Requested Visits Authorized [id number] Authorized PCP Requested Referral 06/11/2022 06/11/2023 1 1 Specialty Diagnoses / Procedures Referred By Silva torres Referred To Contact Nutrition Diagnoses Abnormal maternal glucose tolerance, antepartum Procedures CONSULT TO NUTRITION THERAPY OFFICE/OUTPATIENT [facility] MDM 60-74 MINUTES Ivy Albarran MD [address] [place] [address] Referral ID Status Reason Start Date Expiration Date Visits Requested Visits Authorized [id number] Authorized PCP Requested Referral 06/11/2022 06/11/2023 1 1 Summary Purpose Additional Source Comments Source Comments (unrecognize d section and content) In the event this informatio n is protected by the Federal Confidentiality of Alcohol and Drug Abuse Patient Records regulations: The Federal rules restrict any use of the information to criminally investigate or prosecute any alcohol or drug abuse patient.[facility] event this information is protected by the Federal Confidentiality of Alcohol and Drug Abuse Patient Records regulations: The Federal rules restrict any use of the information to criminally investigate or prosecute any alcohol or drug abuse patient.[facility] the event this information is protected by the Federal Confidentiality of Alcohol and Drug Abuse Patient Records regulations: The Federal rules restrict any use of the information to criminally investigate or prosecute any alcohol or drug abuse patient.[facility] the event this information is protected by the Federal Confidentiality of Alcohol and Drug Abuse Patient Records regulations: The Federal rules restrict any use of the information to criminally investigate or prosecute any alcohol or drug abuse patient.[facility] the event this information is protected by the Federal Confidentiality of Alcohol and Drug Abuse Patient Records regulations: The Federal rules restrict any use of the information to criminally investigate or prosecute any alcohol or drug abuse patient.[facility] the event this information is protected by the Federal Confidentiality of Alcohol and Drug Abuse Patient Records regulations: The Federal rules restrict any use of the information to criminally investigate or prosecute any alcohol or drug abuse patient.[facility] the event this information is protected by the Federal Confidentiality of Alcohol and Drug Abuse Patient Records regulations: The Federal rules restrict any use of the information to criminally investigate or prosecute any alcohol or drug abuse patient.[facility] the event this information is protected by the Federal Confidentiality of Alcohol and Drug Abuse Patient Records regulations: The Federal rules restrict any use of the information to criminally investigate or prosecute any alcohol or drug abuse patient.[facility] the event this information is protected by the Federal Confidentiality of Alcohol and Drug Abuse Patient Records regulations: The Federal rules restrict any use of the information to criminally investigate or prosecute any alcohol or drug abuse patient.[facility] the event this information is protected by the Federal Confidentiality of Alcohol and Drug Abuse Patient Records regulations: The Federal rules restrict any use of the information to criminally investigate or prosecute any alcohol or drug abuse patient.[facility] the event this information is protected by the Federal Confidentiality of Alcohol and Drug Abuse Patient Records regulations: The Federal rules restrict any use of the information to criminally investigate or prosecute any alcohol or drug abuse patient.[facility] the event this information is protected by the Federal Confidentiality of Alcohol and Drug Abuse Patient Records regulations: The Federal rules restrict any use of the information to criminally investigate or prosecute any alcohol or drug abuse patient.[facility] the event this information is protected by the Federal Confidentiality of Alcohol and Drug Abuse Patient Records regulations: The Federal rules restrict any use of the information to criminally investigate or prosecute any alcohol or drug abuse patient.[facility] the event this information is protected by the Federal Confidentiality of Alcohol and Drug Abuse Patient Records regulations: The Federal rules restrict any use of the information to criminally investigate or prosecute any alcohol or drug abuse patient.[facility] the event this information is protected by the Federal Confidentiality of Alcohol and Drug Abuse Patient Records regulations: The Federal rules restrict any use of the information to criminally investigate or prosecute any alcohol or drug abuse patient.[facility] the event this information is protected by the Federal Confidentiality of Alcohol and Drug Abuse Patient Records regulations: The Federal rules restrict any use of the information to criminally investigate or prosecute any alcohol or drug abuse patient.[facility] the event this information is protected by the Federal Confidentiality of Alcohol and Drug Abuse Patient Records regulations: The Federal rules restrict any use of the information to criminally investigate or prosecute any alcohol or drug abuse patient.[facility] the event this information is protected by the Federal Confidentiality of Alcohol and Drug Abuse Patient Records regulations: The Federal rules restrict any use of the information to criminally investigate or prosecute any alcohol or drug abuse patient.[facility] the event this information is protected by the Federal Confidentiality of Alcohol and Drug Abuse Patient Records regulations: The Federal rules restrict any use of the information to criminally investigate or prosecute any alcohol or drug abuse patient.[facility] the event this information is protected by the Federal Confidentiality of Alcohol and Drug Abuse Patient Records regulations: The Federal rules restrict any use of the information to criminally investigate or prosecute any alcohol or drug abuse patient.[facility] the event this information is protected by the Federal Confidentiality of Alcohol and Drug Abuse Patient Records regulations: The Federal rules restrict any use of the information to criminally investigate or prosecute any alcohol or drug abuse patient.[facility] the event this information is protected by the Federal Confidentiality of Alcohol and Drug Abuse Patient Records regulations: The Federal rules restrict any use of the information to criminally investigate or prosecute any alcohol or drug abuse patient.[facility] the event this information is protected by the Federal Confidentiality of Alcohol and Drug Abuse Patient Records regulations: The Federal rules restrict any use of the information to criminally investigate or prosecute any alcohol or drug abuse patient.[facility] the event this information is protected by the Federal Confidentiality of Alcohol and Drug Abuse Patient Records regulations: The Federal rules restrict any use of the information to criminally investigate or prosecute any alcohol or drug abuse patient.[facility] the event this information is protected by the Federal Confidentiality of Alcohol and Drug Abuse Patient Records regulations: The Federal rules restrict any use of the information to criminally investigate or prosecute any alcohol or drug abuse patient.[facility] the event this information is protected by the Federal Confidentiality of Alcohol and Drug Abuse Patient Records regulations: The Federal rules restrict any use of the information to criminally investigate or prosecute any alcohol or drug abuse patient.[facility] the event this information is protected by the Federal Confidentiality of Alcohol and Drug Abuse Patient Records regulations: The Federal rules restrict any use of the information to criminally investigate or prosecute any alcohol or drug abuse patient.[facility] the event this information is protected by the Federal Confidentiality of Alcohol and Drug Abuse Patient Records regulations: The Federal rules restrict any use of the information to criminally investigate or prosecute any alcohol or drug abuse patient.[facility] the event this information is protected by the Federal Confidentiality of Alcohol and Drug Abuse Patient Records regulations: The Federal rules restrict any use of the information to criminally investigate or prosecute any alcohol or drug abuse patient.[facility]In the event this information is protected by the Federal Confidentiality of Alcohol and Drug Abuse Patient Records regulations: The Federal rules restrict any use of the information to criminally investigate or prosecute any alcohol or drug abuse patient.[facility] HospitalIn the event this information is protected by the Federal Confidentiality of Alcohol and Drug Abuse Patient Records regulations: The Federal rules restrict any use of the information to criminally investigate or prosecute any alcohol or drug abuse patient.[facility] HospitalIn the event this information is protected by the Federal Confidentiality of Alcohol and Drug Abuse Patient Records regulations: The Federal rules restrict any use of the information to criminally investigate or prosecute any alcohol or drug abuse patient.[facility] HospitalIn the event this information is protected by the Federal Confidentiality of Alcohol and Drug Abuse Patient Records regulations: The Federal rules restrict any use of the information to criminally investigate or prosecute any alcohol or drug abuse patient.[facility] HospitalIn the event this information is protected by the Federal Confidentiality of Alcohol and Drug Abuse Patient Records regulations: The Federal rules restrict any use of the information to criminally investigate or prosecute any alcohol or drug abuse patient.[facility] HospitalIn the event this information is protected by the Federal Confidentiality of Alcohol and Drug Abuse Patient Records regulations: The Federal rules restrict any use of the information to criminally investigate or prosecute any alcohol or drug abuse patient.[facility] HospitalIn the event this information is protected by the Federal Confidentiality of Alcohol and Drug Abuse Patient Records regulations: The Federal rules restrict any use of the information to criminally investigate or prosecute any alcohol or drug abuse patient.[facility] HospitalIn the event this information is protected by the Federal Confidentiality of Alcohol and Drug Abuse Patient Records regulations: The Federal rules restrict any use of the information to criminally investigate or prosecute any alcohol or drug abuse patient.[facility] HospitalIn the event this information is protected by the Federal Confidentiality of Alcohol and Drug Abuse Patient Records regulations: The Federal rules restrict any use of the information to criminally investigate or prosecute any alcohol or drug abuse patient.[facility] HospitalIn the event this information is protected by the Federal Confidentiality of Alcohol and Drug Abuse Patient Records regulations: The Federal rules restrict any use of the information to criminally investigate or prosecute any alcohol or drug abuse patient.[facility] HospitalIn the event this information is protected by the Federal Confidentiality of Alcohol and Drug Abuse Patient Records regulations: The Federal rules restrict any use of the information to criminally investigate or prosecute any alcohol or drug abuse patient.[facility] HospitalIn the event this information is protected by the Federal Confidentiality of Alcohol and Drug Abuse Patient Records regulations: The Federal rules restrict any use of the information to criminally investigate or prosecute any alcohol or drug abuse patient.[facility] HospitalIn the event this information is protected by [...] or prosecute any alcohol or drug abuse patient.[facility] HospitalIn the event this information is protected by the Federal Confidentiality of Alcohol and Drug Abuse Patient Records regulations: The Federal rules restrict any use of the information to criminally investigate or prosecute any alcohol or drug abuse patient.[facility] HospitalIn the event this information is protected by the Federal Confidentiality of Alcohol and Drug Abuse Patient Records regulations: The Federal rules restrict any use of the information to criminally investigate or prosecute any alcohol or drug abuse patient.[facility] HospitalIn the event this information is protected by the Federal Confidentiality of Alcohol and Drug Abuse Patient Records regulations: The Federal rules restrict any use of the information to criminally investigate or prosecute any alcohol or drug abuse patient.[facility] HospitalIn the event this information is protected by the Federal Confidentiality of Alcohol and Drug Abuse Patient Records regulations: The Federal rules restrict any use of the information to criminally investigate or prosecute any alcohol or drug abuse patient.[facility] HospitalIn the event this information is protected by the Federal Confidentiality of Alcohol and Drug Abuse Patient Records regulations: The Federal rules restrict any use of the information to criminally investigate or prosecute any alcohol or drug abuse patient.[facility] HospitalIn the event this information is protected by the Federal Confidentiality of Alcohol and Drug Abuse Patient Records regulations: The Federal rules restrict any use of the information to criminally investigate or prosecute any alcohol or drug abuse patient.[facility] HospitalIn the event this information is protected by the Federal Confidentiality of Alcohol and Drug Abuse Patient Records regulations: The Federal rules restrict any use of the information to criminally investigate or prosecute any alcohol or drug abuse patient.[facility] HospitalIn the event this information is protected by the Federal Confidentiality of Alcohol and Drug Abuse Patient Records regulations: The Federal rules restrict any use of the information to criminally investigate or prosecute any alcohol or drug abuse patient.[facility] HospitalIn the event this information is protected by the Federal Confidentiality of Alcohol and Drug Abuse Patient Records regulations: The Federal rules restrict any use of the information to criminally investigate or prosecute any alcohol or drug abuse patient.[facility] HospitalIn the event this information is protected by the Federal Confidentiality of Alcohol and Drug Abuse Patient Records regulations: The Federal rules restrict any use of the information to criminally investigate or prosecute any alcohol or drug abuse patient.[facility] HospitalIn the event this information is protected by the Federal Confidentiality of Alcohol and Drug Abuse Patient Records regulations: The Federal rules restrict any use of the information to criminally investigate or prosecute any alcohol or drug abuse patient.[facility] HospitalIn the event this information is protected by the Federal Confidentiality of Alcohol and Drug Abuse Patient Records regulations: The Federal rules restrict any use of the information to criminally investigate or prosecute any alcohol or drug abuse patient.[facility] HospitalIn the event this information is protected by the Federal Confidentiality of Alcohol and Drug Abuse Patient Records regulations: The Federal rules restrict any use of the information to criminally investigate or prosecute any alcohol or drug abuse patient.[facility] HospitalIn the event this information is protected by the Federal Confidentiality of Alcohol and Drug Abuse Patient Records regulations: The Federal rules restrict any use of the information to criminally investigate or prosecute any alcohol or drug abuse patient.[facility] HospitalIn the event this information is protected by the Federal Confidentiality of Alcohol and Drug Abuse Patient Records regulations: The Federal rules restrict any use of the information to criminally investigate or prosecute any alcohol or drug abuse patient.[facility] HospitalIn the event this information is protected by the Federal Confidentiality of Alcohol and Drug Abuse Patient Records regulations: The Federal rules restrict any use of the information to criminally investigate or prosecute any alcohol or drug abuse patient.[facility] HospitalIn the event this information is protected by the Federal Confidentiality of Alcohol and Drug Abuse Patient Records regulations: The Federal rules restrict any use of the information to criminally investigate or prosecute any alcohol or drug abuse patient.[facility] HospitalIn the event this information is protected by the Federal Confidentiality of Alcohol and Drug Abuse Patient Records regulations: The Federal rules restrict any use of the information to criminally investigate or prosecute any alcohol or drug abuse patient.[facility] HospitalIn the event this information is protected by the Federal Confidentiality of Alcohol and Drug Abuse Patient Records regulations: The Federal rules restrict any use of the information to criminally investigate or prosecute any alcohol or drug abuse patient.[facility] HospitalIn the event this information is protected by the Federal Confidentiality of Alcohol and Drug Abuse Patient Records regulations: The Federal rules restrict any use of the information to criminally investigate or prosecute any alcohol or drug abuse patient.[facility] HospitalIn the event this information is protected by the Federal Confidentiality of Alcohol and Drug Abuse Patient Records regulations: The Federal rules restrict any use of the information to criminally investigate or prosecute any alcohol or drug abuse patient.[facility] HospitalIn the event this information is protected by the Federal Confidentiality of Alcohol and Drug Abuse Patient Records regulations: The Federal rules restrict any use of the information to criminally investigate or prosecute any alcohol or drug abuse patient.[facility] HospitalIn the event this information is protected by the Federal Confidentiality of Alcohol and Drug Abuse Patient Records regulations: The Federal rules restrict any use of the information to criminally investigate or prosecute any alcohol or drug abuse patient.[facility] HospitalIn the event this information is protected by the Federal Confidentiality of Alcohol and Drug Abuse Patient Records regulations: The Federal rules restrict any use of the information to criminally investigate or prosecute any alcohol or drug abuse patient.[facility] HospitalIn the event this information is protected by the Federal Confidentiality of Alcohol and Drug Abuse Patient Records regulations: The Federal rules restrict any use of the information to criminally investigate or prosecute any alcohol or drug abuse patient.[facility] HospitalIn the event this information is protected by the Federal Confidentiality of Alcohol and Drug Abuse Patient Records regulations: The Federal rules restrict any use of the information to criminally investigate or prosecute any alcohol or drug abuse patient.[facility] HospitalIn the event this information is protected by the Federal Confidentiality of Alcohol and Drug Abuse Patient Records regulations: The Federal rules restrict any use of the information to criminally investigate or prosecute any alcohol or drug abuse patient.[facility] HospitalIn the event this information is protected by the Federal Confidentiality of Alcohol and Drug Abuse Patient Records regulations: The Federal rules restrict any use of the information to criminally investigate or prosecute any alcohol or drug abuse patient.[facility] HospitalIn the event this information is protected by the Federal Confidentiality of Alcohol and Drug Abuse Patient Records regulations: The Federal rules restrict any use of the information to criminally investigate or prosecute any alcohol or drug abuse patient.[facility] HospitalIn the event this information is protected by the Federal Confidentiality of Alcohol and Drug Abuse Patient Records regulations: The Federal rules restrict any use of the information to criminally investigate or prosecute any alcohol or drug abuse patient.[facility] HospitalIn the event this information is protected by the Federal Confidentiality of Alcohol and Drug Abuse Patient Records regulations: The Federal rules restrict any use of the information to criminally investigate or prosecute any alcohol or drug abuse patient.[facility] HospitalIn the event this information is protected by the Federal Confidentiality of Alcohol and Drug Abuse Patient Records regulations: The Federal rules restrict any use of the information to criminally investigate or prosecute any alcohol or drug abuse patient.[facility] HospitalIn the event this information is protected by the Federal Confidentiality of Alcohol and Drug Abuse Patient Records regulations: The Federal rules restrict any use of the information to criminally investigate or prosecute any alcohol or drug abuse patient.[facility] HospitalIn the event this information is protected by the Federal Confidentiality of Alcohol and Drug Abuse Patient Records regulations: The Federal rules restrict any use of the information to criminally investigate or prosecute any alcohol or drug abuse patient.[facility] HospitalIn the event this information is protected by the Federal Confidentiality of Alcohol and Drug Abuse Patient Records regulations: The Federal rules restrict any use of the information to criminally investigate or prosecute any alcohol or drug abuse patient.[facility] HospitalIn the event this information is protected by the Federal Confidentiality of Alcohol and Drug Abuse Patient Records regulations: The Federal rules restrict any use of the information to criminally investigate or prosecute any alcohol or drug abuse patient.[facility] HospitalIn the event this information is protected by the Federal Confidentiality of Alcohol and Drug Abuse Patient Records regulations: The Federal rules restrict any use of the information to criminally investigate or prosecute any alcohol or drug abuse patient.[facility] HospitalIn the event this information is protected by the Federal Confidentiality of Alcohol and Drug Abuse Patient Records regulations: The Federal rules restrict any use of the information to criminally investigate or prosecute any alcohol or drug abuse patient.[facility] HospitalIn the event this information is protected by the Federal Confidentiality of Alcohol and Drug Abuse Patient Records regulations: The Federal rules restrict any use of the information to criminally investigate or prosecute any alcohol or drug abuse patient.[facility] HospitalIn the event this information is protected by the Federal Confidentiality of Alcohol and Drug Abuse Patient Records regulations: The Federal rules restrict any use of the information to criminally investigate or prosecute any alcohol or drug abuse patient.[facility] HospitalIn the event this information is protected by the Federal Confidentiality of Alcohol and Drug Abuse Patient Records regulations: The Federal rules restrict any use of the information to criminally investigate or prosecute any alcohol or drug abuse patient.[facility] Reason for Visit (unrecogniz ed section and content) Reason Comments Patient Question Reason Comments Results 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 Diagnoses Encounter for supervision of normal first in first trimester Procedures OBSTETRIC ULTRASOUND WHI US PREG UTERUS AFTER 1ST TRIMEST GESTATION Ivy Albarran MD [address] [place] [address] [address] Referral ID Status Reason Start Date Expiration Date Visits Requested Visits Authorized [id number] Authorized Auto-Generat ed Referral 09/22/2021 09/21/2022 20 20 Reason Comments Breast Pump Reason Onset Date Comments Care 05/29/2022 Reason Comments Results Specialty Diagnoses / Procedures Referred By Contac t Referred To Contact Diagnoses Abnormal maternal glucose tolerance, antepartum Procedures CONSULT TO DIABETES EDUCATION OFFICE/OUTPATIENT NEW HIGH MDM 60-74 MINUTES Ivy Albarran MD [address] [place] [address] Referral ID Status Reason Start Date Expiration Date V isits Requested Visits Authorized [id number] Closed PCP Requested Referral 06/11/2022 06/11/2023 1 1 Reason Onset Date Comments Care 06/14/2022 Immunizations 06/14/2022 Flu vaccination Reason Onset Date Comments Care 07/10/2022 Reason Comments Critical Results Reason Comments Orders Reason Onset Date Comments Care 07/24/2022 Specialty Diagnoses / Procedures Referred By Contac t Referred To Contact [facility] Diagnoses Gestational diabetes mellitus, class A1 Procedures OBSTETRIC ULTRASOUND WHI US PREG UTERUS AFTER 1ST TRIMEST GESTATION Ivy Albarran MD [address] [place] [address] [address] Referral ID Status Reason Start Date Expiration Date V isits Requested Visits Authorized [id number] Closed Auto-Generate d Referral 07/23/2022 07/23/2023 1 [...] Referred By Contac t Referred To Contact [facility] Diagnoses with uncertain dates in first trimester (HCC) Procedures OBSTETRIC ULTRASOUND WHI US PREG UTERUS AFTER 1ST TRIMEST GESTATION Rowena Hawthorne, RESERVATIONS SALES SUPERVISOR.INSPECTOR [employer] [address] [place] [address] Phone: tel: fax: [facility] [address] [place] [address] Referral ID Status Reason Start Date Expiration Date Visits Requested Visits Authorized [id number] Authorized Auto-Generat ed Referral 02/16/2025 09/21/2025 3 3 Reason Onset Date Comments Refill Request 03/18/2025 Reason Onset Date Comments Care 04/04/2025 Reason Onset Date Comments Care 05/02/2025 Reason Onset Date Comments Care 05/30/2025 Reason Onset Date Comments Care 06/07/2025 Care Teams (unrecognized sec tion and content) Armhole Presser Relationship Specialty Start Date End Date Kaden Meyer DO [address] [place] [address] PCP - General Family Practice 06/29/18 Armhole Presser Relationship Specialty Start Date End Date Kaden Meyer DO [address] [place] [address] PCP - General Family Practice 06/29/18 Armhole Presser Relationship Specialty Start Date End Date Kaden Meyer, DO [address] [place] [address] PCP - General Family Practice 06/29/18 Armhole Presser Relationship Specialty Start Date End Date Kaden Meyer, DO [address] [place] [address] PCP - General Family Practice 06/29/18 Armhole Presser Relationship Specialty Start Date End Date Kaden Meyer, DO [address] [place] [address] PCP - General Family Practice 06/29/18 Armhole Presser Relationship Specialty Start Date End Date Kaden Meyer, DO [address] [place] [address] PCP - General Family Practice 06/29/18 Armhole Presser Relationship Specialty Start Date End Date Kaden Meyer, DO [address] [place] [address] PCP - General Family Practice 06/29/18 Armhole Presser Relationship Specialty Start Date End Date Kaden Meyer, DO [address] [place] [address] PCP - General Family Practice 06/29/18 Armhole Presser Relationship Specialty Start Date End Date Kaden Meyer, DO [address] [place] [address] PCP - General Family Practice 06/29/18 Armhole Presser Relationship Specialty Start Date End Date Kaden Meyer, DO [address] [place] [address] PCP - General Family Practice 06/29/18 Armhole Presser Relationship Specialty Start Date End Date Kaden Meyer, DO [address] [place] [address] PCP - General Family Medicine 06/29/18 Armhole Presser Relationship Specialty Start Date End Date Kaden Meyer, DO [address] [place] [address] PCP - General Family Medicine 06/29/18 Armhole Presser Relationship Specialty Start Date End Date Kaden Meyer, DO [address] [place] [address] PCP - General Family Medicine 06/29/18 Armhole Presser Relationship Specialty Start Date End Date Kaden Meyer, DO [address] [place] [address] PCP - General Family Medicine 06/29/18 Armhole Presser Relationship Specialty Start Date End Date Kaden Meyer, DO [address] [place] [address] PCP - General Family Medicine 06/29/18 Armhole Presser Relationship Specialty Start Date End Date Kaden Meyer, DO [address] [place] [address] PCP - General Family Medicine 06/29/18 Armhole Presser Relationship Specialty Start Date End Date Kaden Meyer, DO [address] [place] [address] PCP - General Family Medicine 06/29/18 Armhole Presser Relationship Specialty Start Date End Date Kaden Meyer, DO [address] [place] [address] PCP - General Family Medicine 06/29/18 Armhole Presser Relationship Specialty Start Date End Date Kaden Meyer, DO [address] [place] [address] PCP - General Family Medicine 06/29/18 Armhole Presser Relationship Specialty Start Date End Date Kaden Meyer, DO [address] [place] [address] PCP - General Family Medicine 06/29/18 Armhole Presser Relationship Specialty Start Date End Date Kaden Meyer, DO [address] [place] [address] PCP - General Family Medicine 06/29/18 Armhole Presser Relationship Specialty Start Date End Date Kaden Meyer, DO [address] [place] [address] PCP - General Family Medicine 06/29/18 Armhole Presser Relationship Specialty Start Date End Date Kaden Meyer, DO [address] [place] [address] PCP - General Family Medicine 06/29/18 Armhole Presser Relationship Specialty Start Date End Date Kaden Meyer, DO [address] [place] [address] PCP - General Family Medicine 06/29/18 Armhole Presser Relationship Specialty Start Date End Date Kaden Meyer, DO [address] [place] [address] PCP - General Family Medicine 06/29/18 Armhole Presser Relationship Specialty Start Date End Date Kaden Meyer DO [address] [place] [address] PCP - General Family Medicine 06/29/18 Armhole Presser Relationship Specialty Start Date End Date Kaden Meyer DO [address] [place] [address] PCP - General Family Medicine 06/29/18 Armhole Presser Relationship Specialty Start Date End Date Kaden Meyer DO [address] [place] [address] PCP - General Family Medicine 06/29/18 Armhole Presser Relationship Specialty Start Date End Date Kaden Meyer DO [address] [facility] [place] [address] PCP - General Family Medicine 06/29/18 Armhole Presser Relationship Specialty Start Date End Date Kaden Meyer DO [address] [facility] [place] [address] PCP - General Family Medicine 06/29/18 Armhole Presser Relationship Specialty Start Date End Date Kaden Meyer DO [address] [facility] [address] PCP - General Family Medicine 06/29/18 Armhole Presser Relationship Specialty Start Date End Date Kaden Meyer DO [address] [facility] [place] [address] PCP - General Family Medicine 06/29/18 Armhole Presser Relationship Specialty Start Date End Date Kaden Meyer DO [address] [facility] [place] [address] PCP - General Family Medicine 06/29/18 Armhole Presser Relationship Specialty Start Date End Date Kaden Meyer DO [address] [facility] [place] [address] PCP - General Family Medicine 06/29/18 Armhole Presser Relationship Specialty Start Date End Date Kaden Meyer DO [address] [facility] [place] [address] PCP - General Family Medicine 06/29/18 Armhole Presser Relationship Specialty Start Date End Date Kaden Meyer DO [address] [place] [address] PCP - General Family Medicine 06/29/18 Katt Fletcher, RESERVATIONS SALES SUPERVISOR.[employer]OR [employer] [address] [place] [place] [address] Chinese Teacher Family Medicine 08/29/24 Daria Davies, RESERVATIONS SALES SUPERVISOR.INSPECTOR [employer] [address] [facility] [place] [address] Chinese Teacher Family Medicine 08/29/24 Armhole Presser Relationship Specialty Start Date End Date Kaden Meyer DO [address] [facility] [place] [address] PCP - General Family Medicine 06/29/18 Katt Fletcher, RESERVATIONS SALES SUPERVISOR.[employer]PECTOR [employer] [address] [facility] [place] [address] Chinese Teacher Family Medicine 08/29/24 Daria Davies, RESERVATIONS SALES SUPERVISOR.[employer] [address] [facility] [facility] [place] [address] Chinese Teacher Family Medicine 08/29/24 Armhole Presser Relationship Specialty Start Date End Date Kaden Meyer DO [address] [facility] [place] [address] PCP - General Family Medicine 06/29/18 Katt Fletcher, RESERVATIONS SALES SUPERVISOR.INSPECTOR [employer] [address] [facility] [place] [address] Chinese Teacher Family Medicine 08/29/24 Daria Davies, RESERVATIONS SALES SUPERVISOR.INSPECTOR [employer] [address] [facility] [place] [address] Chinese Teacher Family [facility] 08/29/24 Armhole Presser Relationship Specialty Start Date End Date Kaden Meyer DO [address] [place] [address] PCP - General Family Medicine 06/29/18 Katt Fletcher, RESERVATIONS SALES SUPERVISOR.INSPECTOR [employer] [address] [place] [address] Chinese Teacher Family [facility] 08/29/24 SamsonDaria, RESERVATIONS SALES SUPERVISOR.INSPECTOR [employer] [address] [place] [address] Replaced By [facility] 08/29/24 Armhole Presser Relationship Specialty Start Date End Date Kaden Meyer DO [address] [place] [address] PCP - General Family Medicine 06/29/18 Katt Fletcher, RESERVATIONS SALES SUPERVISOR.INSPECTOR [employer] [address] [place] [address] [facility] SamsonDaria, RESERVATIONS SALES SUPERVISOR.INSPECTOR [employer] [address] [place] [address] Replaced By [facility] 08/29/24 Armhole Presser Relationship Specialty Start Date End Date Kaden Meyer DO [address] [place] [address] PCP - General Family Medicine 06/29/18 Katt Fletcher, RESERVATIONS SALES SUPERVISOR.INSPECTOR [employer] [address] [place] [address] Chinese Teacher Family [facility] 08/29/24 SamsonDaria, RESERVATIONS SALES SUPERVISOR.INSPECTOR [employer] [address] [place] [address] [facility] Armhole Presser Relationship Specialty Start Date End Date Kaden Meyer DO [address] [place] [address] PCP - General Family Medicine 06/29/18 Katt Fletcher, RESERVATIONS SALES SUPERVISOR.INSPECTOR [employer] [address] [place] [address] Replaced By [facility] 08/29/24 SamsonDaria, RESERVATIONS SALES SUPERVISOR.INSPECTOR [employer] [address] [place] [address] Replaced By [facility] 08/29/24 Armhole Presser Relationship Specialty Start Date End Date Kaden Meyer DO [address] [place] [address] PCP - General Family Medicine 06/29/18 SamsonDaria, RESERVATIONS SALES SUPERVISOR.INSPECTOR [employer] [address] [place] [address] Replaced By [facility] 08/29/24 Armhole Presser Relationship Specialty Start Date End Date Kaden Meyer DO [address] [place] [address] PCP - General Family Medicine 06/29/18 SamsonDaria, RESERVATIONS SALES SUPERVISOR.INSPECTOR [employer] [address] [place] [address] Chinese Teacher Family Medicine 08/29/24 Armhole Presser Relationship Specialty Start Date End Date Kaden Meyer DO [address] [place] [address] PCP - General Family Medicine 06/29/18 [facility], RESERVATIONS SALES SUPERVISOR.INSPECTOR [employer] [address] [facility] [place] [address] Chinese Teacher Family [facility] 08/29/24 Armhole Presser Relationship Specialty Start Date End Date Kaden Meyer DO [address] [facility] [place] [address] PCP - General Family Medicine 06/29/18 [facility], RESERVATIONS SALES SUPERVISOR.INSPECTOR [employer] [address] [facility] [place] [address] [facility] 08/29/24 Armhole Presser Relationship Specialty Start Date End Date Kaden Meyer DO [address] [facility] [place] [address] PCP - General Family Medicine 06/29/18 [facility] HospitalChristinaDaria, RESERVATIONS SALES SUPERVISOR.INSPECTOR [employer] [address] [facility] [place] [address] [facility] 08/29/24 Armhole Presser Relationship Specialty Start Date End Date Kaden Meyer DO [address] [facility] [place] [address] PCP - General Family Medicine 06/29/18 [facility] HospitalDaria, RESERVATIONS SALES SUPERVISOR.INSPECTOR [employer] [address] [facility] [place] [address] [facility] 08/29/24 Armhole Presser Relationship Specialty Start Date End Date Kaden Meyer DO [address] [place] [address] PCP - General Family Medicine 06/29/18 [facility] Hospital[facility], RESERVATIONS SALES SUPERVISOR.INSPECTOR [employer] [address] [place] [address] Chinese Teacher Family Medicine 08/29/24 Armhole Presser Relationship Specialty Start Date End Date Kaden Meyer DO [address] [place] [address] PCP - General Family Medicine 06/29/18 [facility] Hospital[facility], RESERVATIONS SALES SUPERVISOR.INSPECTOR [employer] [address] [place] [address] Chinese Teacher Family Medicine 08/29/24 Joselin June, RESERVATIONS SALES SUPERVISOR.INSPECTOR [employer] [address] [place] [address] [facility] 03/07/25 Armhole Presser Relationship Specialty Start Date End Date Kaden Meyer DO [address] [place] [address] PCP - General Family Medicine 06/29/18 [facility] Hospital[facility], RESERVATIONS SALES SUPERVISOR.INS[employer]OR [employer] [address] [place] [address] Chinese Teacher Family Medicine 08/29/24 Joselin June, RESERVATIONS SALES SUPERVISOR.INSPECTOR [employer] [address] [place] [address] Chinese Teacher Family Medicine 03/07/25 Armhole Presser Relationship Specialty Start Date End Date Kaden Meyer DO [address] [facility] [place] [address] PCP - General Family Medicine 06/29/18 Daria Davies, JESI.INSPECTOR [employer] [address] [place] [address] Chinese Teacher Family Medicine 08/29/24 Joselin June APRN.INSPECTOR [employer] [address] [place] [address] Chinese Teacher Family Medicine 03/07/25 Armhole Presser Relationship Specialty Start Date End Date Kaden Meyer DO [address] [place] [address] PCP - General Family Medicine 06/29/18 SamsonDaria, RESERVATIONS SALES SUPERVISOR.INSPECTOR [employer] [address] [place] [address] Chinese Teacher Family Medicine 08/29/24 Joselin June, RESERVATIONS SALES SUPERVISOR.INSPECTOR [employer] [address] [place] [address] Chinese Teacher Family [facility] 03/07/25 Armhole Presser Relationship Specialty Start Date End Date Kaden Meyer DO [address] [place] [address] PCP - General Family Medicine 06/29/18 Daria Davies, RESERVATIONS SALES SUPERVISOR.INSPECTOR [employer] [address] [facility] [place] [address] Chinese Teacher Family Medicine 08/29/24 Joselin June, RESERVATIONS SALES SUPERVISOR.INSPECTOR [employer] [address] [place] [address] Chinese Teacher Family [facility] 03/07/25 Armhole Presser Relationship Specialty Start Date End Date Kaden Meyer DO [address] [facility] [place] [address] PCP - General Family Medicine 06/29/18 SamsonDaria, RESERVATIONS SALES SUPERVISOR.INS[employer]OR [employer] [address] [place] [address] Chinese Teacher Family Medicine 08/29/24 Joselin June, RESERVATIONS SALES SUPERVISOR.INSPECTOR [employer] [address] [place] [address] Replaced By [facility] 03/07/25 Armhole Presser Relationship Specialty Start Date End Date Kaden Meyer DO [address] [place] [address] PCP - General Family Medicine 06/29/18 SamsonDaria, RESERVATIONS SALES SUPERVISOR.INSPECTOR [employer] [address] [place] [address] Replaced By [facility] 08/29/24 Joselin June, RESERVATIONS SALES SUPERVISOR.INSPECTOR [employer] [address] [place] [address] Replaced By [facility] 03/07/25 Armhole Presser Relationship Specialty Start Date End Date Kaden Meyer DO [address] [place] [address] PCP - General Family Medicine 06/29/18 Daria Davies, RESERVATIONS SALES SUPERVISOR.INSPECTOR [employer] [address] [place] [address] [facility] 08/29/24 Joselin June, RESERVATIONS SALES SUPERVISOR.INSPECTOR [employer] [address] [place] [address] Replaced By [facility] 03/07/25 Armhole Presser Relationship Specialty Start Date End Date Kaden Meyer DO [address] [place] [address] PCP - General Family Medicine 06/29/18 [facility], RESERVATIONS SALES SUPERVISOR.INSPECTOR [employer] [address] [place] [address] Replaced By [facility] 08/29/24 Joselin June, RESERVATIONS SALES SUPERVISOR.INSPECTOR [employer] [address] [place] [address] Replaced By [facility] 03/07/25 Armhole Presser Relationship Specialty Start Date End Date Kaden Myeer DO [address] [place] [address] PCP - General Family Medicine 06/29/18 [facility] HospitalR[facility], RESERVATIONS SALES SUPERVISOR.INSPECTOR [employer] [address] [place] [address] Replaced By [facility] 08/29/24 Joselin June, RESERVATIONS SALES SUPERVISOR.INSPECTOR [employer] [address] [place] [address] Replaced By [facility] 03/07/25 Armhole Presser Relationship Specialty Start Date End Date Kaden Meyer DO [address] [place] [address] PCP - General Family Medicine 06/29/18 Daria Davies, JESI.INSPECTOR [employer] [address] [place], [place] [address] Replaced By [facility] 08/29/24 Joselin June APRN.INSPECTOR [employer] [address] [place] [address] Replaced By [facility] 03/07/25 Goals (unrecognized section and content) Goals may be documented in a n alternate section INFORMATION SOURCE (unrecogn ized section and content) DATE CREATED AUTHOR 04/10/2025 [facility] DATE CREATED AUTHOR AUTHOR'S ORGANIZ ATION 07/22/2025 [facility] DATE CREATED AUTHOR AUTHOR'S ORGANIZ ATION 08/02/2025 [facility] FOR RECORDS PERTAINING TO PATIENTS WHO ARE [...] BE BASED ON THE PRIMARY CLINICAL RECORDS. [facility]. provides no warranty or guarantee of the accuracy or completeness of information in this document.
[2025-09-02] MEDS: Lactated Ringers 1,000 ML 999 ML IV (05:30)
[2025-09-02 05:46] LABS: Hematocrit 39.2 % (37-47); Hemoglobin 13.1 g/dL (12.0-15.0); Immature Granulocytes Count 0.070 X10^3/uL (0.0-0.0); Mean Corp Hgb Conc 33.4 g/dL (32-36); Mean Corpuscular Volume 85.2 fL (81-99); Mean Platelet Vol. 11.7 fl (6.2-12.0); NRBC Flagged by Analyzer 0 % (0-5); Platelet Count 176 K/mm3 (150-450); RBC Distribution Width CV 13.5 % (11.6-14.6); RBC Distribution Width SD 41.7 fl (35.1-43.9); Red Blood Count 4.60 M/mm3 (4.2-5.4); White Blood Count 10.4 K/mm3 (4.4-11.0)
[2025-09-02] MEDS: Lactated Ringers 1,000 ML 150 ML IV (06:35)
[2025-09-02 06:37] LABS: Syphilis Antibodies Nonreactive (Nonreactive)
[2025-09-02] MEDS: morphine PF (epidural) 5 MG/10 ML Vial INTRATH (07:28)
[2025-09-02] MEDS: TRANEXAMIC ACID 1,000 MG/10 ML ML 1000 MG IV (07:30)
[2025-09-02] MEDS: Gentamicin 800 MG/20 ML Vial 250 MG IV (07:40)
--- NOTE | 2025-09-02 08:09 | EX.PCM.OBRPT ---
Maternal Data Information Gestational age: 40 Operative Report (OB) Procedure Details Date of Procedure: 09/02/25 Procedure Start Time: 07:39 Procedure Stop Time: 08:10 Time of Delivery: 07:43 Pre-Operative Diagnosis: Repeat Elective Post-Operative Diagnosis: Same as Pre-operative diagnosis (GDMA2 ) Classification: Scheduled Type of Anesthesia: Spinal Antibiotic Given: Clindamycin 600mg IV x1 and Gentamicin 1.5mg/kg IV x1 Drain: Sullivan to straight drain Estimated Blood Loss: 600 Fluids Replaced: 800 Findings Description of surgery: After informed consent was obtained the patient was taken the operating room she was given spinal anesthesia. She was then placed in the supine position. She was prepped and draped in the normal sterile fashion. Anesthesia was found to be adequate. At this time a Pfannenstiel skin incision was made with a knife was carried down to the underlying layer of the fascia. The fascial incision was then extended laterally using dumont scissor. Attention was then turned to the superior aspect of the fascial edge was grasped with 2 straight [place] clamps tented up and the rectus muscle dissected off sharply. Rectus muscles were then in the midline bluntly and peritoneum was entered bluntly. Gentle opposing traction was placed. At this time the vesicouterine peritoneum was identified. bladder flap created. Scalpel was used to make a uterine incision in a low transverse fashion. The uterus was then entered bluntly gentle opposing traction was placed to extend this incision. Membranes were ruptured clear. Infant's head was brought to the uterine incision was delivered atraumatically. Infant was vigorous at delivery and delayed cord clamping performed. Cord was clamped and cut infant was handed to the waiting nursery team. The Placenta was removed from the uterus. The uterus was then removed from the abdominal cavity. The uterus was cleared of all clots and debris using a lap. At this time the uterine incision was reapproximated using #1 Vicryl in a running locked fashion. Hemostasis was appreciated. Posterior cul-de-sac was then cleared of all clots and debris. Uterus was placed back in the abdominal cavity. Gutters were cleared of all clots and debris. Uterine incision was reevaluated and noted to be of excellent hemostasis. hemoblast placed over incision. At this time the peritoneum was grasped with Kellys reapproximated using #2 Vicryl suture in a running fashion. hemoblast placed over rectus muscle. Fascia was then reapproximated using #1 Vicryl in a running fashion. Subcu layer was irrigated with NS, reapproximated with #2 0 plain gut suture in an interrupted fashion. Subcu layer was closed using 4-0 Monocryl in a subcu fashion. Dry sterile dressing was applied. Instrument lap needle count correct ?2. Anticipated normal postoperative course. Surgical findings: normal tubes and ovaries Presentation: Vertex Amniotic Membrane Rupture Type: Artificial Amniotic Fluid Description: Clear Placental Delivery Description: Expressed Placenta Disposition: [facility] Specimen collected: No Cord Vessel Description: 3 Vessels Cord Entanglement: None Infant A gender: Male (1 minute): 8 (5 minute): 9 Delayed Cord Clamping: Yes Senior Software Systems Engineer marine transport professionals: Yes Bilingual Medical Receptionist: David Manning Tasks completed by mate first: Opening & closing and Retracting Additional financial planning assistant?: No Complications Complications: No
[2025-09-02] MEDS: Oxytocin 15 Units/NS 250ml 15 UNITS/250 ML IV.SOLN 83 UNITS IV (08:30)
[2025-09-02] MEDS: Ketorolac 30 MG/ML Syringe IV ×3 (08:57→20:57)
[2025-09-02] MEDS: 0.9% Saline Lock 10 ML Syringe IV ×2 (14:58→20:57)
[2025-09-03] VITALS: BP 117/55; PULSE 78; RESP 17; TEMP 36.5; O2SAT 96
[2025-09-03] MEDS: 0.9% Saline Lock 10 ML Syringe IV (02:56)
[2025-09-03] MEDS: Ketorolac 30 MG/ML Syringe IV (02:56)
[2025-09-03 03:15] VITALS: BP 106/72; PULSE 65; RESP 16; TEMP 36.4; O2SAT 95
[2025-09-03 06:14] LABS: Hematocrit 31.8 % (37-47); Hemoglobin 10.4 g/dL (12.0-15.0); Mean Corp Hgb Conc 32.7 g/dL (32-36); Mean Corpuscular Volume 86.4 fL (81-99); Mean Platelet Vol. 11.4 fl (6.2-12.0); Platelet Count 148 K/mm3 (150-450); RBC Distribution Width CV 13.5 % (11.6-14.6); RBC Distribution Width SD 41.7 fl (35.1-43.9); Red Blood Count 3.68 M/mm3 (4.2-5.4); White Blood Count 12.3 K/mm3 (4.4-11.0)
[2025-09-03 08:35] VITALS: BP 118/75; PULSE 88; RESP 18; TEMP 37.2; O2SAT 98
[2025-09-03] MEDS: Senna/Docusate Sodium 1 Tablet PO (09:25)
--- NOTE | 2025-09-03 12:22 | PCM.PN.OB ---
Subjective Subjective Doing well per patient and nursing staff. Ambulating and taking PO without difficulty. Voiding and passing flatus. Pain controlled. , services for assistance. Denies headache, visual changes, chest pain, shortness of breath, leg pain or increased bleeding. Lochia normal. Objective Data Objective Data Vital Signs: Vital Signs Temp Pulse Resp BP Pulse Ox O2 Del Method 99.0 F 88 18 118/75 98 Room Air 09/03/25 08:35 09/03/25 08:35 09/03/25 08:35 09/03/25 08:35 09/03/25 08:35 09/03/25 08:35 Oxygen Delivery Method Room Air Weight: 193 lb Body Mass Index (BMI) 35.3 Intake & Output: Intake and Output for Last 24 Hours 09/01/25 09/02/25 09/03/25 23:59 23:59 23:59 Intake Total 1537.5 / 1537.5 Output Total 2300 / 2300 1400 / 1400 Balance -762.5 / -762.5 -1400 / -1400 Lab / Micro Data 09/03/25 06:05 Labs: Laboratory Results - last 24 hr 09/03/25 06:00: POC Glucose 73 L 09/03/25 06:05: WBC 12.3 H, RBC 3.68 L, Hgb 10.4 L, Hct 31.8 L, MCV 86.4, MCH 28.3, MCHC 32.7, RDW Std Deviation 41.7, RDW Coeff of Bart 13.5, Plt Count 148 L, MPV 11.4 ROS Constitutional Constitutional: Reports systems reviewed and no addt'l complaints, except as documented; Denies headache(s) Eyes Eyes: Denies acute decrease in peripheral vision, blurry vision or change in vision ENT HEENT: Reports systems reviewed and no addt'l complaints, except as documented Cardiovascular Cardiovascular: Denies chest pain or dizziness Respiratory/Chest Respiratory/Chest: Denies cough, dyspnea, dyspnea on exertion, shortness of breath at rest or shortness of breath with exertion Gastrointestinal Gastrointestinal: Denies abdominal pain, diarrhea, nausea or vomiting Genitourinary Genitourinary: Denies abdominal discomfort Musculoskeletal Musculoskeletal: Denies limited range of motion Integumentary Integumentary: Reports systems reviewed and no addt'l complaints, except as documented Neurologic Neurologic: Reports systems reviewed and no addt'l complaints, except as documented Psychiatric Psychiatric: Reports systems reviewed and no addt'l complaints, except as documented Endocrine Endocrinology: Reports systems reviewed and no addt'l complaints, except as documented Hematologic/Lymphatic Hematologic/Lymphatic: Reports systems reviewed and no addt'l complaints, except as documented Allergic/Immunologic Allergic/Immunologic: Reports systems reviewed and no addt'l complaints, except as documented Physical Exam Const alert and oriented x3 General Appearance: cooperative Orientation / Consciousness: awake, oriented to person, oriented to place and oriented to time Exam Limitations: no limitations HEENT normocephalic Head and Scalp: normal to inspection, normocephalic and atraumatic Face and Sinus: normal facial exam Eyes General Eye: normal appearance of both eyes Neck full ROM Chest Chest: symmetrical chest wall rise Resp normal respiratory effort and normal air movement Auscultation: clear to auscultation bilaterally Cardio regular rate, regular rhythm, S1 normal heart sound, S2 normal heart sound, no murmurs, no rub, no gallops and no clicks GI normal to inspection, nondistended, normoactive bowel sounds and non-tender GI Narrative: Dressing dry and intact. Fundus firm 2 below U appearance of the vagina normal Narrative: Normal lochia rubra Bladder / Kidney Exam: no CVA tenderness Back/Spine normal ROM Extremity normal to inspection and full ROM Skin no rashes or lesions noted Neuro oriented x3, CN's II-XII intact bilaterally and moves all extremities Sensorium / Orientation: awake, alert and oriented to person Motor Exam: clonus absent Deep Tendon Reflexes: Rt Patellar (L4): 2+ and Lt Patellar (L4): 2+ Assessment & Plan (1) Postoperative pain: (2) Lactating mother: (3) S/P primary low transverse : COMMENT: POD#1 PLAN: Plan 1) Routine care, POD #1 2) Vitals signs stable 3) Pain controlled 4) , services PRN 5) D/C home 6) Follow up in 1 week and 6 weeks
--- NOTE | 2025-09-03 12:23 | PCM.DC.SUM ---
Providers Date of Admission: 09/02/25 Primary Care Physician: Dr. Kaden Meyer DO Reason For Visit: CSECTION/CSECTION DELIVERY Diagnosis Discharge Diagnosis (1) Postoperative pain: Status: Acute Code(s): G89.18 - Other acute postprocedural pain (2) Lactating mother: Status: Acute Code(s): Z39.1 - Encounter for care and examination of lactating mother (3) Status post repeat low transverse section: Status: Acute Code(s): Z98.891 - History of uterine scar from previous surgery Plan 1) Routine care, POD #1 2) Vitals signs stable 3) Pain controlled 4) , services PRN 5) D/C home 6) Follow up in 1 week and 6 weeks Medications at Discharge Home Medications [id number] 1 mg tablet 1 tab PO DAILY 02/04/22 sertraline 100 mg tablet 100 mg PO DAILY anxiety 09/02/25 acetaminophen 500 mg tablet 1,000 mg (2 x 500 mg) PO Q6 #0 tabs 09/03/25 ibuprofen 600 mg tablet 600 mg PO Q6H PRN PRN Pain 1-10 #0 tabs 09/03/25 sennosides 8.6 mg-docusate sodium 50 mg tablet (Stimulant Laxative Plus) 1 - 2 tab PO DAILY #30 tabs 09/03/25 Hospital Course Summary of Care Provided Minutes Spent on Discharge: 15 Hospital Course: Presented for repeat section on 09/02/26. Normal postoperative course. Discharge home on postoperative day #1 Weight / BMI Weight Weight: 193 lb Body Mass Index (BMI) 35.3 PRE- weight 150 lb PRE- Body Mass Index 27.6 (BMI) ABG / Lab / Microbiology Data 09/03/25 06:05 Laboratory: Laboratory Results - last 24 hr 09/03/25 06:00: POC Glucose 73 L 09/03/25 06:05: WBC 12.3 H, RBC 3.68 L, Hgb 10.4 L, Hct 31.8 L, MCV 86.4, MCH 28.3, MCHC 32.7, RDW Std Deviation 41.7, RDW Coeff of Bart 13.5, Plt Count 148 L, MPV 11.4 D/C Instructions DC O2, CPAP, BIPAP Needs Home O2 Discharge instructions: No Meaningful Use Info Meaningful Use Meaningful Use Diagnoses (Choose all that apply): None applicable Discharge Plan Admission Admit Date/Time: 09/02/25 05:19 Primary Reason for Your Visit: Section Attending Provider: Ivy Jones Primary Care Provider: Kaden Meyer Discharge Orders/Prescriptions Prescriptions: New sennosides-docusate sodium [Stimulant Laxative Plus] 8.6-50 mg Tablet 1 - 2 tab PO DAILY Qty: 30 0RF acetaminophen 500 mg Tablet 1,000 mg PO Q6 Qty: 0 0RF ibuprofen 600 mg Tablet 600 mg PO Q6H PRN PRN (Reason: Pain 1-10) Qty: 0 0RF Continued bfuppwzp-[id number]-Zr-FA 1 mg Tablet 1 tab PO DAILY sertraline 100 mg tablet 100 mg PO DAILY Discontinued Novolin N FlexPen 100 unit/mL (3 mL) insulin pen 12 unit subcut QHS aspirin 81 mg tablet,delayed release (DR/EC) 81 mg PO DAILY Referrals / Follow Up: Kaden Meyer DO [Primary Care Provider, Medical] Disposition Disposition (needs filled in before D/C Order can be placed): Home, Self Care
--- NOTE | 2025-09-03 12:38 | CASEMGMT ---
Social Work Assessment Labor and Delivery Unit Patient Address: [address] [place] [address] [place] [address] Phone number: [phone] Date of Referral: 09/02/25 Time of Referral: 13:41 Referred By: Ivy Jones Date of Intervention: 09/03/25 Time of Intervention: 12:38 Reason for Referral: Mental Health/Anxiety History obtained from: Mother of baby (MOB), father of baby (YENNIFER/Amada, age 28) and review of medical records. ?? Household composition: MIGUELINA, FOAnderson, their 3-year-old daughter Ekaterina and son Andriy, born on 09/02/25. Patient's parent/guardian status: ???MOB and FOB have been together for 6 ? years and have been for 4 ? of those years. MOB denied any previous or current issues of domestic violence and described a positive relationship with the FOB. Medical History: : 3, Para, now 2. MB had 1 SAB. ??MOB received care through [facility] beginning at 8 weeks and 6 days. Visits were observed to be routine. Apgars: 8 and 9. ??Weight: 8lbs, 16oz. Compress Trucker: Dr. Nicole. Educational Status: MOB and FOB denied any issues with reading, writing or learning comprehension. MOB and FOB both attended some college, no degree. Financial Status: MOB and FOB reported that their income is sufficient to meet the needs of their family at this time. MOB and FOB are both employed full-time.? MOB is taking 12 weeks of maternity leave and the FOB gets 1 week of paternity leave. Infant Supplies: MOB and FOB reported they have the supplies they need for baby at this time including but not limited to: Car seat, bassinet, crib, diapers, bottles, breast pump and clothing. Childcare/Caregiver(s): MIGUELINA reported that once she returns back to work, ?a mix of family and a sitter? will provide care for . ?MOB and FOB denied any barriers/needs related to childcare/caregiving. Transportation: Both MOB and FOB are licensed drivers and have a reliable vehicle to get baby to and from all medical appointments. MOB and FOB denied any issues/barriers to transportation at this time. Programs/Agencies Involved: MOB and FOB denied any current program/agency involvement. MOB reported she used to be connected with [facility] for PPD with first-born and described it as very helpful. Children Services/Legal Issues: MOB and FOB denied any previous or current Children Services and/or legal involvement. Behavioral Health Issues: None reported/denied. ? Mental Health History: MOB has a history of Anxiety, Adjustment Disorder and PPD. MOB reported she began experiencing PPD with her first-born while still in the hospital and describing it as lasting for longer than 6 months which is when the MOB decided to get connected to counseling and started medication. MOB described her current symptoms as being managed on Zoloft. ?FOB denied any MH history. Commercial Artist Lettering administered the Gilmer Depression Scale (EPDS). MOB?s score was a ?1?. Commercial Artist Lettering provided education on what the score meant which the MOB verbalized she understood. Substance Use History: MOB and FOB denied any history or current drug and/or alcohol abuse. ? Family History: MOB reported her father is an alcoholic and is not sober at this time. The FOB reported his paternal grandfather (PGF) and paternal great-grandfather (PGGF) were alcoholics, however are now both . Drug Screens: None obtained for the MOB or baby during this admission. Family/Social Stressors:?? Denied. Support Systems: MIGUELINA identified her biggest support as the FOB, family as well as ?s maternal grandmother (MGM) and paternal grandmother (PGM) and paternal grandfather (PGF). Depression/Shaken Baby/Safe Sleeping: Commercial Artist Lettering provided verbal and written education on PPD, increased risk factors for PPD, Safe Sleeping and Shaken Baby.? MOB and FOB both verbalized an understanding.??? ASSESSMENT: MOB and FOB provided consent to social work visit. Upon arrival, the MOB was sitting upright in the hospital bed, ?s MGM was in a chair close-by, holding and the FOB came in shortly after social sciences instructor arrived and had just taken a trip to the car in preparation for upcoming discharge. MOB and FOB provided consent for the MGM being in the room at the time of the assessment. ?MOB and FOB were both verbally engaged, and cooperative. Commercial Artist Lettering observed positive interaction between the MOB and FOB as well as the MGM towards as she held throughout the assessment. MGM was observed as being very gentle with and looked at often. ??At the end of the assessment, social sciences instructor requested to speak with the MOB alone, which MOB and FOB were both agreeable to. MOB reported feeling safe in her home and denied any previous or current domestic violence, unmanaged mental health issues either with herself or with the FOB, and also denied any concerns with any drug or alcohol abuse either with herself or with the FOB. It should also be noted that this is when social sciences instructor administered the EPDS. Safe Plan of Care for related to substance use: N/A PLAN: For MOB and baby to be discharged when medically ready. No other services requested or indicated. Hellen Willingham, SURVEY PROJECT MANAGER, SEED PRODUCTION FIELD SUPERVISOR
[2025-09-03 13:53] VITALS: BP 116/71; PULSE 76; RESP 16; TEMP 36.6; O2SAT 97
--- NOTE | 2025-09-07 16:21 | NURSING ---
[facility] called to do follow up phone call. MOB reports doing well, bleeding decreasing, going well, reports she is aware of s/sx and when to call the MD. Questioned when to take off the c/s dressing, made aware we usually say 5-7 days so if she wanted to take if off today that would be ok, just to make sure hands are washed in soapy water and cleansed first prior to taking it off and to assess to make sure the skin to touching and if there is drng/redness/swelling/infection sx to make sure she gets in sooner with MD.
== END 2025-09-03 14:25 | disposition home or self-care (01) | DRG 788 ==
PROVIDERS: Admitting Provider Obstetrics & Gynecology; PCP Student in an Organized Health Care Education/Training Program; Referring Provider Obstetrics & Gynecology; Visit Provider Obstetrics & Gynecology
PROC: 10D00Z1 Extraction of Products of Conception, Low, Open Approach (ICD-10-PCS; CPT 59514; principal; 2025-09-02 07:00)
DX: O24.424 Gestational diabetes mellitus in childbirth, insulin controlled (principal); O99.214 Obesity complicating childbirth; F41.9 Anxiety disorder, unspecified; O99.344 Other mental disorders complicating childbirth; O34.211 Maternal care for low transverse scar from previous cesarean delivery; Z37.0 Single live birth; Z79.82 Long term (current) use of aspirin; Z79.899 Other long term (current) drug therapy; Z3A.38 38 weeks gestation of pregnancy
CPT/HCPCS: 59025; 59050; 82962; 85025; 85027; 86780; 86850; 86900; 86901; 99221; A4216; G0378; J2405